=== PATIENT | female | born 1995 | race Caucasian/White ===

== ENCOUNTER → 2021-11-29 | Outpatient (CLI) | payer OTHER, SELFPAY ==
[2021-11-29 18:14] LABS: Potassium 3.6 mmol/L (3.5-5.1)
== END | disposition home or self-care (01) ==
LOC: MTLAB 16:45
PROVIDERS: Referring Provider Dermatology; Visit Provider Dermatology
DX: L70.0 Acne vulgaris (principal); Z79.899 Other long term (current) drug therapy; L57.8 Other skin changes due to chronic exposure to nonionizing radiation
CPT/HCPCS: 36415; 84132

== ENCOUNTER → 2022-10-30 | Outpatient (CLI) | payer OTHER, SELFPAY ==
[2022-10-30 17:22] LABS: Hemoglobin A1c 5.3 % (3.8-5.6)
[2022-10-30 17:51] LABS: Estradiol 96.8 pg/mL; Luteinizing Hormone 3.7 mIU/mL
[2022-10-30 17:56] LABS: Hepatitis B Surface Antibody Non-Reactive; Progesterone Level 11.63 ng/mL (See Comment); Rubella IgG Reactive (Nonreactive); Vitamin D,25 Hydroxy 34.9 ng/mL
[2022-11-01 09:50] LABS: V-Zoster IgG (Immunity) 862 index (Immune >165)
== END | disposition home or self-care (01) ==
LOC: WOBLAB 16:36
PROVIDERS: Visit Provider Student in an Organized Health Care Education/Training Program
DX: L70.0 Acne vulgaris (principal); Z31.69 Encounter for other general counseling and advice on procreation
CPT/HCPCS: 36415; 82306; 82670; 83001; 83002; 83036; 84144; 86706; 86762; 86787

== ENCOUNTER → 2023-01-19 | Outpatient (CLI) | payer OTHER, SELFPAY ==
[2023-01-19 14:20] LABS: Absolute Lymphocyte Count 1.23 X10^3/uL (0.83-4.51); Absolute Neutrophil Count 6.4 X10^3/uL (2.0-7.7); Basophil# 0.06 X10^3/uL; Basophil% 0.7 % (0-1); Eosinophil# 0.03 X10^3/uL; Eosinophils% 0.4 % (0-5); Hematocrit 40.9 % (37-47); Hemoglobin 13.4 g/dL (12.0-15.0); Lymphocyte # 1.23 X10^3/ul (0.83-4.51); Lymphocyte % 14.4 % (19-41); Mean Corp Hgb Conc 32.8 g/dL (32-36); Mean Corpuscular Volume 91.7 fL (81-99); Mean Platelet Vol. 9.2 fl (6.2-12.0); Monocyte# 0.82 X10^3/uL; Monocyte% 9.6 % (0-10); NRBC Flagged by Analyzer 0 % (0-5); Neutrophil # 6.35 X10^3/uL (2.7-7.7); Neutrophil % 74.5 % (47-70); Platelet Count 304 K/mm3 (150-450); RBC Distribution Width CV 11.5 % (11.6-14.6); RBC Distribution Width SD 38.5 fl (35.1-43.9); Red Blood Count 4.46 M/mm3 (4.2-5.4); White Blood Count 8.5 K/mm3 (4.4-11.0)
[2023-01-19 15:23] LABS: HIV - WCH Non-Reactive (Nonreactive); Hepatitis B Surface Antigen Non-Reactive (Nonreactive); Hepatitis C Antibody Non-Reactive (Nonreactive); Rubella IgG Reactive (Nonreactive); Syphilis Antibodies Non-reactive
[2023-01-21 08:08] LABS: V-Zoster IgG (Immunity) 800 index (Immune >165)
== END | disposition home or self-care (01) ==
LOC: WOBLAB 14:07
PROVIDERS: Visit Provider Student in an Organized Health Care Education/Training Program
DX: N91.2 Amenorrhea, unspecified (principal)
CPT/HCPCS: 36415; 85025; 86703; 86762; 86780; 86787; 86803; 87086; 87340

== ENCOUNTER → 2023-01-31 | Outpatient (CLI) | payer OTHER, SELFPAY | END | disposition home or self-care (01) | LOC: LABSPEC 15:36 | PROVIDERS: Referring Provider Dermatology; Visit Provider Dermatology | DX: L08.9 Local infection of the skin and subcutaneous tissue, unspecified (principal) | CPT/HCPCS: 87070; 87077; 87186; 87205 ==

== ENCOUNTER 2023-03-05 09:57 | Day surgery (SDC) | payer OTHER, SELFPAY ==
[2023-03-05] VITALS (7 sets, daily range): BP systolic 98–117; BP diastolic 65–80; PULSE 69–118; RESP 14–18; TEMP 36.2–36.6; O2SAT 97–100; BMI 23.6
[2023-03-05] MEDS: Lactated Ringers 1,000 ML 15 ML IV (11:12)
[2023-03-05 11:22] LABS: Hematocrit 37.5 % (37-47); Hemoglobin 12.9 g/dL (12.0-15.0); Mean Corp Hgb Conc 34.4 g/dL (32-36); Mean Corpuscular Hgb 30.4 pg (27.0-32.0); Mean Corpuscular Volume 88.4 fL (81-99); Platelet Count 222 K/mm3 (150-450); RBC Distribution Width CV 11.9 % (11.6-14.6); RBC Distribution Width SD 38.1 fl (35.1-43.9); Red Blood Count 4.24 M/mm3 (4.2-5.4); White Blood Count 6.9 K/mm3 (4.4-11.0)
--- NOTE | 2023-03-05 11:50 | HP.PCM.OB_ITS ---
History and Physical Date of Admission: 03/05/23 HPI: 27-year-old G1 at 13 weeks presenting for suction dilation curettage for missed . Denies headache vision changes, chest pain or shortness of breath, nausea or vomiting, fevers or cough, diarrhea or constipation. 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: Current Medical history: Denies Surgical history: Appendectomy, wisdom tooth extraction Family history: Noncontributory Social history: Denies tobacco, alcohol, drug use Allergies: NKDA Medications: vitamin Review of system: Negative otherwise stated above Physical exam: Vitals blood pressure 117/77 heart rate 118, respirations 16, temp 97.9 ?F, oxygen saturation 100% on room air General: No acute distress resting comfortably in bed HEENT: Normal cephalic/atraumatic Cardiorespiratory: No increased effort Abdomen: Soft, nontender Extremities: Minimal edema Neurologic: Cranial nerves II through XII grossly intact, no focal deficits Musculoskeletal: Moves all extremities Assessment/plan: 27-year-old G1 at 13 weeks presenting for suction dilation curettage for missed . All risk, benefits, alternatives were discussed the patient. Risk include but are not limited to: Risk of bleeding upon transfusion, infection, injury to surrounding tissue including bowel/bladder/uterine perforation, VTE, ice admission. Patient were consented. Patient elects for Anora testing. Will be sent.
--- NOTE | 2023-03-05 11:52 | OP.PCM_ITS ---
Report of Operation Date of Procedure: 03/05/23 Pre-Operative Diagnosis: Missed Post-Operative Diagnosis: Missed Surgery/Procedure Performed:: Suction dilation and curettage Surgeon: Chioma Bradley pulp machine operator: None Type of Anesthesia: MAC Specimen's removed: Products of conception Description of Procedure: Indication/or/benefits: 27-year-old G1 at 13 weeks presenting for suction dilation curettage for missed . All risk, benefits, alternatives were discussed the patient. Risk include but are not limited to: Risk of bleeding upon transfusion, infection, injury to surrounding tissue including bowel/bladder/uterine perforation, VTE, ice admission. Patient were consented. Patient elects for Anora testing. Will be sent. Procedure: Output: Not measured Complications None
--- NOTE | 2023-03-05 11:52 | PCM.OPRPT ---
Report of Operation Date of Procedure: 03/05/23 Pre-Operative Diagnosis: Missed Post-Operative Diagnosis: Missed Surgery/Procedure Performed:: Suction dilation and curettage Description of Surgical Findings:: Normal-appearing external genitalia. Normal-appearing cervix. Surgeon: Chioma Bradley powerplant operator: None Type of Anesthesia: MAC Specimen's removed: Products of conception Estimated Blood Loss (mL): 25 cc Fluids Replaced: 700 cc IV fluids Description of Procedure: Indication/or/benefits: 27-year-old G1 at 13 weeks presenting for suction dilation curettage for missed . All risk, benefits, alternatives were discussed the patient. Risk include but are not limited to: Risk of bleeding upon transfusion, infection, injury to surrounding tissue including bowel/bladder/uterine perforation, VTE, ice admission. Patient were consented. Patient elects for Anora testing. Will be sent. Procedure: Patient taken to the operating room MAC anesthesia induced. Patient placed in the dorsal lithotomy position and prepped and draped in the usual sterile fashion. Weighted speculum placed in posterior vagina and Castillo retractor used to visualize the cervix. Anterior lip of the cervix grasped with Allis clamp. Cervix gradually dilated. 10 mm suction curette utilized to remove all products of conception in a 360 degree manner. Polyp forceps utilized to remove some tissue as well. Bedside ultrasound completing noting thin endometrial stripe and no blood flow to the endometrial cavity. Patient given 0.2 mg IM Methergine prophylactically. At the end of the procedure all needle, lap, sponge counts were correct. ANORA testing sent. Output: Not measured Complications None Admit VTE Documentation VTE Present on Admission: Yes
--- NOTE | 2023-03-05 11:53 | PCM.DC ---
Discharge Instructions Diet Discharge Diet: No restrictions Activity Discharge Activity: Return to Normal Activity and May Shower May resume sexual activity in: 2 weeks Weight Bearing Status: Weight bearing as tolerated Lifting Restrictions: None Dressing / Incision Call your doctor if you observe: Fever of 101 or Higher, Change in Color, Inability to urinate, Shortness of breath, Dizziness, Swelling in the ankles, Chest pain, Calf discomfort and - (soaking 2 pads an hour for 2 hours) Follow Up Care Please Follow Up With: Chioma Bradley DO When: 1-2 week postoperative visit Test Results: Test results from this visit will be discussed in further detail at your follow-up appointment, if applicable. Discharge Plan Admission Primary Reason for Your Visit: Miscarriage Attending Provider: Chioma Bradley Primary Care Provider: Boston Card Additional Instructions / Restrictions: Take ibuprofen and Tylenol as needed for cramping. Discharge Orders/Prescriptions Prescriptions: No Action PNV cmb#95-ferrous fumarate-FA [] 28 mg iron- 800 mcg tablet 1 tab PO DAILY magnesium 250 mg tablet 250 mg PO DAILY Referrals / Follow Up: Care Physician,No Primary [Non-Staff] - Disposition Disposition (needs filled in before D/C Order can be placed): Home, Self Care
--- NOTE | 2023-03-05 12:00 | POC_PTH ---
PATIENT: ARETHA MARTINEZ LOC: [facility] [place] U#:[id number] AGE/SX: 27/ ROOM: RE03/05/[address]: Dr. Chioma Bradley DO : 1995 BED: DIS: 03/05/2023 SPEC #: [id number] RECD: 03/05/23 12:50 STATUS: RITCHIE REAlexandra #: [id number] ML: 03/05/23 12:[address]: Chioma Bradley DEPT: SURGICAL PATHOLOGY RECD BY: Dixie Stauffer ENTERED: 03/05/23 13:34 SP TYPE: PROD CONC OTHR DR: Dr. Boston Card MD Tissues: Product of conception, NOS Procedures: Surgery Specimen Level IV HEADER OPERATION: Suction dilation and curettage, Anora testing PRE-OP DIAGNOSIS: Missed TISSUE SUBMITTED: Products of conception for Anora testing MICROSCOPIC DIAGNOSIS Products of conception, dilation and curettage: Immature placental tissue, tissue, decidua and gestational endometrium (products of conception), clinically missed . JOE:forrest 03/06/2023 COMMENT The results of Anora study will be reported separately. MICROSCOPIC DESCRIPTION Slides are reviewed. GROSS DESCRIPTION Received without fixative is one container labeled with the patient's name and designated products of conception. The specimen consists of multiple pieces of pink, hemorrhagic soft tissue mixed with placental tissue that in aggregate measure 10.0 x 9.0 x 2.5 cm. A few parts are also noted. Beaming Inspector tissue is submitted in three cassettes. A portion of tissue is submitted for Anora studies. / JOE:forrest 03/05/2023 TC:5 CPT: 95277
[2023-03-05] MEDS: Methylergonovine 0.2 MG/ML Ampul IM (12:43)
[2023-03-05 12:50] LABS: Pathology Specimen OB SEE PATHOLOGY REPORT
[2023-03-05] MEDS: Acetaminophen 500 MG Tablet 1000 MG PO (13:25)
== END 2023-03-05 14:47 | disposition home or self-care (01) ==
LOC: SDC 09:59 → AC 10:01
PROVIDERS: PCP Family Medicine; Referring Provider Student in an Organized Health Care Education/Training Program; Visit Provider Student in an Organized Health Care Education/Training Program
PROC: (CPT 59820; principal; 2023-03-05 11:45)
DX: O02.1 Missed abortion (principal); Z3A.13 13 weeks gestation of pregnancy
CPT/HCPCS: 59820; 01965; 85027; 86850; 86900; 86901; 88305; J2405

== ENCOUNTER 2023-07-09 13:45 | Emergency (ER) | payer OTHER, SELFPAY ==
[2023-07-09 13:46] VITALS: BP 115/80; PULSE 131; RESP 16; TEMP 35.9; O2SAT 100; BMI 24.3
--- NOTE | 2023-07-09 14:10 | US_ITS ---
STUDY: FIRST TRIMESTER OBSTETRICAL ULTRASOUND REASON FOR EXAM: Female, 28 years old bleeding- off and on LLQ pain LMP: June 03, 2023 TECHNIQUE: Transvaginal TECHNICAL QUALITY: Adequate. PRIOR ULTRASOUND: None. FINDINGS: There is visualization of a single gestational sac in a normal intrauterine position. The mean sac diameter (MSD) measures 1.4 cm, indicating an estimated gestational age (EGA) of 6 weeks, 2 days. The gestational sac shape is within normal limits. The sac is in the left horn of the uterus. There is no demonstrated yolk sac. The placenta is non-visualized. There is no demonstrated embryo ( pole). The estimated gestation age (EGA) by LMP is 5 weeks, 1 days. The estimated date of delivery (ONDINA) by LMP is March 09, 2024. The estimated gestation age (EGA) by US is 6 weeks, 3 days. The estimated date of delivery (ONDINA) by US is February 29, 2024. The uterus measures 8.9 cm x 5.9 cm x 4.6 cm findings suggestive of a septated uterus. Small anechoic area measuring 1.1 sign by 1.1 cm x 0.3 cm is seen adjacent to the sac suggestive of a small subchorionic bleed.. There is no demonstrated uterine fibroid. The cervix is closed. The right ovary measures 2.4 cm x 1.6 cm x 0.8. There is no right ovarian cyst. There is no visualized right adnexal mass or complex lesion. The left ovary measures 3.7 cm x 2.3 cm x 1.9 cm. There is a 1.8 cm x 1.3 cm x 1.9 cm hypoechoic solid structure adjacent to the left ovary. There is no visualized left adnexal mass or complex lesion. There is no fluid in the cul de sac. US/Transvaginal w/Preg US IMPRESSION: Intrauterine gestational sac with a mean gestational age of 6 weeks and 2 days. Small subchorionic. Electronically Signed: Adan Domínguez MD at 15:44 EST ,
--- NOTE | 2023-07-09 14:10 | ED.VIS.FEGU ---
HPI HPI - Female History of Present Illness Chief Complaint: Informant: patient Narrative Narrative: Since with some bleeding while . This is a overall healthy G2, P0 female estimated to be about 5 weeks . She had a miscarriage at 13 weeks with her last and that occurred February of this year. She also had some nausea vomiting with that . She states she is starting to get mild nausea with this but it is not a big issue and she has not had vomiting. This morning she wiped and had a small amount of brownish or bloody discharge. It has not recurred. She called her OB who referred her in here. But patient already had quantitative beta-hCG drawn this morning. Patient's not in any pain. She states occasionally she gets a pinch feeling in her left lower quadrant but it is just intermittent and generally she feels fine. She has no urinary symptoms. No fevers or chills. Only abdominal surgery is D&C this February and appendectomy when she was 9. Of note, there is question if the patient may have a slightly bicornate uterus. But this is evidently not certain based on the prior ultrasounds. PFSH PFSH Medical History Non-smoker Home Medications magnesium 250 mg tablet 250 mg PO DAILY 03/02/23 [History Last Taken Unknown] vit no.95-ferrous fumarate 28 mg-folic acid 800 mcg tablet () 1 tab PO DAILY 03/02/23 [History Last Taken Unknown] Allergy/AdvReac Type Severity Reaction Status Date / Time pollen extracts Allergy Unknown Verified 07/09/23 13:47 Surgical History History of appendectomy (~2003) History of wisdom tooth extraction (~12/2021) Social History Smoking Status: Never smoker alcohol intake: current alcohol intake frequency: a few times a week ROS ROS ED Constitutional Constitutional ED: Denies chills or fever(s) ENT ENT ED: Denies rhinorrhea or sore throat Cardiovascular Cardiovascular: Denies chest pain or palpitations Respiratory/Chest Respiratory/Chest: Denies cough or dyspnea Gastrointestinal Gastrointestinal: Reports nausea; Denies abdominal pain, diarrhea or vomiting Genitourinary Genitourinary ED: Reports other Details: See history of present illness ; Denies dysuria or hematuria Endocrine Endocrinology: Denies polydipsia or polyuria Hematologic/Lymphatic Hematologic/Lymphatic: Denies easy bleeding, easy bruising or lymphadenopathy Allergic/Immunologic Allergic/Immunologic ED: Denies urticaria EXAM Physical Exam Narrative Exam Narrative: Neuro: Patient's laying on bed comfortable no acute distress. Nontoxic. Does not look pale. HEENT shows no trauma. Mucous membranes are moist. Heart is regular. Lungs are clear and saturations are normal. Abdomen is soft nondistended. There is no tenderness including none at the low left and right quadrant/pubic area and no suprapubic tenderness. No CVA tenderness. Skin shows no rash petechiae purpura or pallor. No diaphoresis. Const Vital Signs: 07/09/23 13:46 07/09/23 15:49 Temperature 96.6 F L Temperature Source Temporal Pulse Rate 131 H 64 Respiratory Rate 16 16 Blood Pressure 115/80 134/73 H Blood Pressure Mean 91 93 Pulse Ox 100 99 Oxygen Delivery Method Room Air Room Air MDM MDM MDM Narrative Medical decision making narrative: And already had a quantitative beta-hCG G drawn at over 21,000 earlier today. Patient has blood type of O+ when I checked on prior labs from 05 March of this year. Because of the above information I do not think we need to repeat blood work. Patient had a small amount of red on a tissue a single time and I do not think a CBC would be necessary now. We will do ultrasound. Ultrasound shows intrauterine gestational sac with size consistent with 6 weeks 2 days. There is small subchorionic bleed. The do note hypoechoic structure next to the left ovary. Urinalysis is normal. Patient will follow-up with [facility]. If she has further bleeding pain and vomiting or other concerns she should return. Lab Data Attestation: I reviewed the patient's lab results. Labs: Laboratory Results - last 24 hr 07/09/23 15:46 Urine Color Yellow Urine Clarity Clear Urine pH 7.0 Ur Specific [place] 1.005 Urine Protein Negative Urine Glucose (UA) Normal Urine Ketones Negative Urine Occult Blood Negative Urine Nitrite Negative Urine Bilirubin Negative Urine Urobilinogen Normal Ur Leukocyte Esterase Negative Urine RBC 0 SEEN Urine WBC 0 SEEN Ur Squamous Epith Cells 0 SEEN Urine Bacteria 0 SEEN Urine Mucus 0 SEEN Radiography Diagnostic Testing: Clinical Impression(s) from Imaging Studies Obstetrics Ultrasound 07/09/23 14:10 IMPRESSION: Intrauterine gestational sac with a mean gestational age of 6 weeks and 2 days. Small subchorionic. Electronically Signed: Adan Domínguez MD at 15:44 EST , Discharge Plan Triage Chief Complaint: ED Provider: Sherwin Mendoza Dx/Rx/DC Orders Clinical Impression: First trimester bleeding, Subchorionic bleed Instructions: Bleeding During Early Prescriptions: No Action PNV cmb#95-ferrous fumarate-FA [] 28 mg iron- 800 mcg tablet 1 tab PO DAILY magnesium 250 mg tablet 250 mg PO DAILY Primary Care Provider: Boston Card Referrals: Kari Vanegas MD [Med Staff - Active Staff] - As soon as possible Boston Card MD [Primary Care Provider] - Disposition Disposition: Home, Self Care
[2023-07-09 15:49] VITALS: BP 134/73; PULSE 64; RESP 16; O2SAT 99
[2023-07-09 15:50] LABS: Bacteria 0 SEEN /hpf (None Seen); Mucous, Urine 0 SEEN /hpf (<or=2+); Red Blood Cells-Urine 0 SEEN /hpf (0-5); Squamous Epithelial Cells - UA 0 SEEN /hpf (5-10); White Blood Cells 0 SEEN /hpf (0-5)
[2023-07-09 16:11] LABS: Color, Urine Yellow (Yellow); Glucose, Dipstick Normal (Normal); Ketone-Dipstick Negative (Negative); Leukocyte Esterase-Dipstick Negative /ul (Negative); Nitrite-Dipstick Negative (Negative); Occult Blood-Urine Negative /ul (Negative); Protein-Dipstick Negative (Negative); Specific Gravity, Urine 1.005 (1.002-1.030); Urine Bilirubin Dipstick Negative (Negative); Urine Clarity Clear (Clear); Urine Urobilinogen Normal (Normal)
== END 2023-07-09 16:45 | disposition home or self-care (01) ==
PROVIDERS: Emergency Provider Emergency Medicine; PCP Family Medicine; Referring Provider Emergency Medicine; Visit Provider Emergency Medicine
DX: O20.8 Other hemorrhage in early pregnancy (principal); Z90.49 Acquired absence of other specified parts of digestive tract; Z3A.01 Less than 8 weeks gestation of pregnancy
CPT/HCPCS: 76817; 81001; 99282

== ENCOUNTER → 2023-07-09 | Outpatient (CLI) | payer OTHER, SELFPAY | END | disposition home or self-care (01) | LOC: LAB 09:05 | PROVIDERS: PCP Family Medicine; Referring Provider Obstetrics & Gynecology; Visit Provider Obstetrics & Gynecology | DX: N92.0 Excessive and frequent menstruation with regular cycle (principal) | CPT/HCPCS: 36415; 84702 ==

== ENCOUNTER → 2023-07-11 | Outpatient (CLI) | payer OTHER, SELFPAY | END | disposition home or self-care (01) | LOC: LAB 15:49 | PROVIDERS: PCP Family Medicine; Referring Provider Obstetrics & Gynecology; Visit Provider Obstetrics & Gynecology | DX: O20.9 Hemorrhage in early pregnancy, unspecified (principal); N92.0 Excessive and frequent menstruation with regular cycle; Z3A.00 Weeks of gestation of pregnancy not specified | CPT/HCPCS: 36415; 84702 ==

== ENCOUNTER → 2023-07-17 | Outpatient (CLI) | payer OTHER, SELFPAY ==
--- NOTE | 2023-07-17 16:20 | US_ITS ---
INDICATION: viability EXAMINATION: Ultrasound US OB Transvaginal TECHNIQUE: Transvaginal (for optimal evaluation of the adnexa) pelvic ultrasound was performed. Grayscale, spectral waveform, and color flow Doppler evaluation of the adnexa. COMPARISON: 07/09/2023 LMP: [06/03/2023 Beta-hCG: Unknown FINDINGS: UTERUS: 11.9 x 8.7 x 4.8 cm, septated appearance with complex fluid now present in the right sided endometrial cavity. Gestational sac in the left-sided endometrial cavity. RIGHT OVARY: 3.3 x 1.7 x 2.3 cm. Normal. LEFT OVARY: Not visualized due to bowel gas. FREE FLUID: None. INTRAUTERINE GESTATIONAL SAC(s) (size/shape): Single. Mean sac diameter 2.7 cm corresponding 7 weeks 5 days.. YOLK SAC: Identified POLE: Identified CRL 0.84 cm. ESTIMATED GESTATION AGE: 6 weeks 6 days. HEART MOTION: 133 bpm. PLACENTA: Not visualized due to age. SUBCHORIONIC HEMORRHAGE: None. AMNIOTIC FLUID: Qualitatively normal. US/Transvaginal w/Preg US IMPRESSION: Septated uterus with single live intrauterine in the left-sided endometrial cavity. Estimated gestational age is 6 weeks 6 days with ONDINA 03/05/2024. Electronically Signed: Carl Hdez MD at 22:18 EST ,
== END | disposition home or self-care (01) ==
PROVIDERS: PCP Family Medicine; Visit Provider Obstetrics & Gynecology
DX: O46.8X9 Other antepartum hemorrhage, unspecified trimester (principal); Z3A.00 Weeks of gestation of pregnancy not specified
CPT/HCPCS: 76817

== ENCOUNTER → 2023-08-02 | Outpatient (CLI) | payer OTHER, SELFPAY ==
[2023-08-02 15:52] LABS: Absolute Lymphocyte Count 1.31 X10^3/uL (0.83-4.51); Absolute Neutrophil Count 8.1 X10^3/uL (2.0-7.7); Basophil# 0.03 X10^3/uL; Basophil% 0.3 % (0-1); Eosinophil# 0.06 X10^3/uL; Eosinophils% 0.6 % (0-5); Hematocrit 35.6 % (37-47); Hemoglobin 11.9 g/dL (12.0-15.0); Lymphocyte # 1.31 X10^3/ul (0.83-4.51); Lymphocyte % 12.4 % (19-41); Mean Corp Hgb Conc 33.4 g/dL (32-36); Mean Corpuscular Hgb 30.1 pg (27.0-32.0); Mean Corpuscular Volume 90.1 fL (81-99); Mean Platelet Vol. 9.1 fl (6.2-12.0); Monocyte# 1.02 X10^3/uL; Monocyte% 9.6 % (0-10); NRBC Flagged by Analyzer 0 % (0-5); Neutrophil # 8.14 X10^3/uL (2.7-7.7); Neutrophil % 76.7 % (47-70); Platelet Count 268 K/mm3 (150-450); RBC Distribution Width SD 39.6 fl (35.1-43.9); Red Blood Count 3.95 M/mm3 (4.2-5.4); White Blood Count 10.6 K/mm3 (4.4-11.0)
[2023-08-02 16:44] LABS: HIV - WCH Non-Reactive (Nonreactive); Hepatitis B Surface Antigen Non-Reactive (Nonreactive); Hepatitis C Antibody Non-Reactive (Nonreactive); Rubella IgG Reactive (Nonreactive); Syphilis Antibodies Non-reactive
[2023-08-06 22:07] LABS: Chlamydia By Nucleic Acid AMP Negative (Negative); Gonococcus By Nucleic Acid AMP Negative (Negative)
[2023-08-08 20:28] LABS: HPV Reflexed? NOT INDICATED
== END | disposition home or self-care (01) ==
LOC: PAVLAB 15:38
PROVIDERS: PCP Family Medicine; Referring Provider Advanced Practice Midwife; Visit Provider Advanced Practice Midwife
DX: Z34.90 Encounter for supervision of normal pregnancy, unspecified, unspecified trimester (principal)
CPT/HCPCS: 36415; 85025; 86703; 86762; 86780; 86803; 86850; 86900; 86901; 87086; 87340; 87491; 87591; 88175; G0145

== ENCOUNTER 2023-08-18 22:08 | Emergency (ER) | payer OTHER, SELFPAY ==
[2023-08-18 22:09] VITALS: BP 120/83; PULSE 115; RESP 18; TEMP 36; O2SAT 99; BMI 25.0
--- NOTE | 2023-08-18 22:28 | EX.ED.DYSGE1 ---
HPI History of Present Illness Chief Complaint: Nausea/Vomiting Informant: patient Narrative Narrative: Patient presents secondary to nausea and vomiting with blood in her emesis. She is currently 11-1/2 weeks . She states that last Sunday she had vomiting and again tonight. Tonight she noted some blood in the vomitus. She has had pelvic cramping for the past 4 weeks that is not any worse than different. She has had some intermittent spotting throughout. She is currently taking Unisom and vitamin B6 at bedtime to help with nausea. Patient is G2, P0, Ab1 Patient's blood type is O+. [facility] Medical History Abnormal Pap smear of cervix Acute bacterial conjunctivitis Influenza A Non-smoker Raynauds disease Seasonal allergies Home Medications vit no.95-ferrous fumarate 28 mg-folic acid 800 mcg tablet () 1 tab PO DAILY 03/02/23 [History Last Taken Unknown] Allergy/AdvReac Type Severity Reaction Status Date / Time pollen extracts Allergy Unknown Verified 08/18/23 22:09 Family History Mother Hypertension Hypothyroidism Surgical History H/O dilation and curettage History of appendectomy (~2003) History of wisdom tooth extraction (~12/2021) Social History adopted: No household members: spouse current occupational status: employed 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 current occupational exposures/hazards: No pets and animals: Yes pets and animals: dog(s) history of recent travel: Yes ([place]) out of state: Yes out of country: No sexually active: Yes Smoking Status: Never smoker alcohol intake: current alcohol intake frequency: a few times a week details: not while substance use type: does not use well-balanced diet: daily or most days caffeine: No eating out: 1-3 times/week during the past year weight has: remained stable juan daniel/holiness: Sikh seatbelt use: always do you feel safe at home: Yes additional social history: [employer] ROS ROS ED Constitutional Constitutional ED: Denies chills or fever(s) Eyes Eyes: Denies change in vision or discharge from eye(s) ENT ENT ED: Denies discharge from eye(s), rhinorrhea or sore throat Cardiovascular Cardiovascular: Denies chest pain or palpitations Respiratory/Chest Respiratory/Chest: Denies cough or dyspnea Gastrointestinal Gastrointestinal: Reports nausea and vomiting; Denies abdominal pain or diarrhea Genitourinary Genitourinary ED: Denies dysuria Musculoskeletal Musculoskeletal: Denies back pain or extremity pain Integumentary Denies Abrasions or rash Neurologic Neurologic: Denies headache(s) or weakness Psychiatric Psychiatric: Denies anxiety or depression Allergic/Immunologic Allergic/Immunologic ED: Denies lip swelling or urticaria EXAM Physical Exam Const Vital Signs: 08/18/23 22:09 Temperature 96.8 F L Temperature Source Temporal Pulse Rate 115 H Respiratory Rate 18 Blood Pressure 120/83 H Blood Pressure Mean 95 Pulse Ox 99 Oxygen Delivery Method Room Air Positive well nourished and well developed General Appearance ED: well developed HEENT Reports moist mucous membranes Eyes EOMs intact bilaterally Chest Wall inspection of chest normal and palpation of chest normal Resp normal respiratory effort and clear to auscultation bilaterally Cardio regular rate and regular rhythm GI non-tender Auscultation: normoactive bowel sounds Palpation: soft Extremity normal to inspection Neuro oriented x3 and no sensory deficits noted Motor Exam: strength 5/5 throughout Psych mental status grossly normal Skin no rashes or lesions noted MDM MDM MDM Narrative Medical decision making narrative: IV line initiated. Patient given IV fluids and Zofran. Labwork obtained to evaluate for leukocytosis, anemia, and electrolyte derangement. Urinalysis obtained to evaluate for infection/hematuria. History & Record Review Discussion w/independent historian: Patient Lab Data Attestation: I reviewed the patient's lab results. Labs: Laboratory Results - last 24 hr 08/18/23 08/18/23 22:35 22:41 WBC 7.0 RBC 4.02 L Hgb 12.0 Hct 36.5 L MCV 90.8 MCH 29.9 MCHC 32.9 RDW Std Deviation 40.0 RDW Coeff of Flavia 12.0 Plt Count 234 MPV 8.9 Immature Gran % (Auto) 0.300 Neut % (Auto) 63.2 Lymph % (Auto) 24.7 [place] % (Auto) 9.8 Eos % (Auto) 1.4 Baso % (Auto) 0.6 Absolute Neuts (auto) 4.4 Absolute Lymphs (auto) 1.73 Nucleated RBC % 0 Sodium 136 Potassium 3.6 Chloride 105 Carbon Dioxide 27.0 Anion Gap 4 L BUN 8 Creatinine 0.53 L Estim Creat Clear Calc 153.68 Est GFR (MDRD) Af Amer 175 Est GFR (MDRD) Non-Af 144 BUN/Creatinine Ratio 15.0 Glucose 104 Calcium 9.4 Total Bilirubin 0.40 Direct Bilirubin 0.12 AST 10 L ALT 9 L Alkaline Phosphatase 46 Total Protein 7.0 Albumin 3.3 Globulin 3.7 Lipase 41 Urine Color Yellow Urine Clarity Clear Urine pH 6.5 Ur Specific [place] 1.020 Urine Protein 15 H Urine Glucose (UA) Normal Urine Ketones Negative Urine Occult Blood 10 H Urine Nitrite Negative Urine Bilirubin Negative Urine Urobilinogen Normal Ur Leukocyte Esterase 25 H Urine RBC 0-5 SEEN Urine WBC 0-5 SEEN Ur Squamous Epith Cells 0-5 SEEN Urine Bacteria RARE Urine Mucus RARE Treatment and Re-Evaluation :: CBC reveals normal white count 7.0 with a hemoglobin of 12.0. Chemistry studies unremarkable. LFTs and lipase normal. Urinalysis reveals 15 protein with 0-5 white cells and 0-5 epithelial cells. Rare bacteria noted. No nitrites. On repeat evaluation patient feels improved. Her nausea has resolved. I do feel she likely had some irritation of the small blood vessels in her throat from heaving that caused her bleeding. I do not think she needs further GI workup at this time. I did offer to write a prescription for nausea medication however she feels that she is doing okay with her current regimen. Return instructions will be given. Discharge Plan Triage Chief Complaint: Nausea/Vomiting ED Provider: Nicolle Martinez Dx/Rx/DC Orders Clinical Impression: First trimester , Hematemesis, Vomiting Instructions: 1st Trimester, ED Vomiting (Adult) Prescriptions: No Action PNV cmb#95-ferrous fumarate-FA [] 28 mg iron- 800 mcg tablet 1 tab PO DAILY Primary Care Provider: Boston Card Referrals: Nicolle Massey DO [Med Staff - Active Staff] - Keep Christiano appointment Boston Card MD [Primary Care Provider] - Disposition Disposition: Home, Self Care
--- OUTSIDE RECORDS SUMMARY | 2023-08-18 22:38 | XMS RPT_ITS | CCD ---
Author Name Unknown Address [address] [facility] [address] [place] [address] Organization [facility] Care Team Providers Care Customer Experience Specialist Name Role Phone Juan, Ann Unavailable Unavailable Juan, Ann Unavailable Unavailable Luisa Grover LPN Unavailable Unavailab le BERTRAND DOROXANN Attending Unavailable BERTRAND DO, ROXANN [place] Consulting Unavailable BERTRAND DOROXANN Admitting Unavailable NONE, NONE Primary Care Unavailable NONE, NONE Consulting Unavailable Unavailable Primary Care Provider Unavailchauncey Lopez MD, Ann Rogers Primary Care Provider ANN LOPEZ Referring Unavailable DESTINEY MCCARTHY Attending Unavailable ANN LOPEZ Referring Unavailable ANN LOPEZ Attending Unavailable ANN LOPEZ Referring Unavailable ANN LOPEZ Primary Care Unavailable ANN LOPEZ Attending Unavailable ANN LOPEZ Primary Care Unavailable ANN LOPEZ Primary Care Unavailable ANN LOPEZ Referring Unavailable ANN LOPEZ Primary Care Unavailable ANN LOPEZ Attending Unavailable ANN LOPEZ Primary Care Unavailable Allergies Allergy Classification Reported Allergen(s) Allergy Type Date of Onset Reaction(s) Facility (1 source) No Known Medication Allergies; Translations: [No Known Medication Allergies] Propensity to adverse reactions to drug (disorder) [facility] Repository (1 source) Pollen; Translations: [POLLEN] allergy to substance [facility] Work Phone: (4 sources) Pollen; Translations: [POLLEN EXTRACTS] Drug Allergy 7 Other: See Comments [facility] Work Phone: Medications Current Medications Medication Drug Class(es) Dates Sig (Normalized) Sig (Original) cefuroxime 500 mg oral tablet (1 source) Cephalosporin Antibacterial Start: 02-01-2023 End: 02-15-2023 take 1 tablet by mouth twice daily cefUROXime (CEFTIN) 500 mg tablet Indications: Erythema migrans Take 1 tablet by mouth twice daily for 14 days. 28 tablet 0 02/01/2023 02/15/2023 Active Completed/Discontinued Medications Medication Drug Class(es) Dates Sig (Normalized) Sig (Original) azithromycin 250 mg oral tablet (2 sources) Macrolide Antimicrobial Start: 04-30-2017 AZITHROMYCIN 250 MG TABS 2 tablets today, then 1 tablet daily on days 2 through 5 AZITHROMYCIN [id number] Clint HIGGINS benzonatate 200 mg oral capsule (2 sources) Non-narcotic Antitussive Start: 04-30-2017 BENZONATATE 200 MG CAPS 1 capsule every 8 hours as needed for cough BENZONATATE [id number] Clint HIGGINS benzoyl peroxide 0.05 mg/mg / clindamycin phosphate 0.012 mg/mg topical gel (3 sources) Lincosamide Antibacterial Start: 04-18-2022 Clindamycin-Benzoy l Peroxide 1.2 %(1 % base) -5 % gel APPLY ONCE DAILY TO ALL AREAS OF ACNE AT BEDTIME - WILL BLEACH CLOTHES UNTIL DRY. 0 04/18/2022 Active Problems Active Problems Problem Classification Problem Date Documented Date Episodic/Chronic Diseases of mouth; excluding dental (2 sources) Geographic tongue; Translations: [Geographic tongue] Onset: 02-02-2023 Episodic Immunizations and screening for infectious disease (1 source) Patient encounter status; Translations: [Encounter for screening for infections with a predominantly sexual mode of transmission] Episodic Other connective tissue disease (1 source) Pain in finger of left hand; Translations: [Pain in left finger(s)] Episodic Other infections; including parasitic (1 source) Lyme disease, unspecified; Translations: [Lyme disease] Onset: 02-19-2023 Episodic Other lower respiratory disease (2 sources) Cough; Translations: [Acute cough] Onset: 04-30-2017 04-30-2017 Episodic Other skin disorders (1 source) Trachyonychia; Translations: [Nail dystrophy] 03-29-2023 Episodic Other skin disorders (1 source) Loss of hair; Translations: [Nonscarring hair loss, unspecified] 03-29-2023 Episodic Other skin disorders (1 source) Nail dystrophy; Translations: [Brittle nails] Onset: 04-03-2023 Episodic Other skin disorders (1 source) Nonscarring hair loss, unspecified; Translations: [Hair loss] Onset: 04-03-2023 Episodic Residual codes; unclassified (1 source) FH: Thyroid disorder; Translations: [Family history of other endocrine, nutritional and metabolic diseases] 03-29-2023 Episodic Residual codes; unclassified (1 source) Family history of other endocrine, nutritional and metabolic diseases; Translations: [Family history of thyroid disease] Onset: 04-03-2023 Episodic Past or Other Problems Problem Classification Problem Date Documented Da te Episodic/Chronic Chronic obstructive pulmonary disease and bronchiectasis (1 source) Bronchitis; Translations: [Bronchitis, not specified as acute or chronic] Onset: 04-30-2017 04-30-2017 Episodic Other connective tissue disease (1 source) Pain in left finger(s); Translations: [Pain of finger of left hand] Onset: 07-25-2022 Episodic Other screening for suspected conditions (not mental disorders or infectious disease) (5 sources) Cancer cervix screening status; Translations: [Encounter for screening for malignant neoplasm of cervix] Onset: 08-01-2022 Episodic Results Test Name Value Interpretation Reference Range Facil ity Vital Signs Date Time Vital Sign Value Performing Clinician Facility 02-01-2023 18:39-0400 Body temperature 98.29 [degF] Ann Lopez MD Work Phone: [facility] 02-01-2023 18:39-0400 Body weight 67.59 kg Ann Lopez MD Work Phone: [facility] 02-01-2023 18:39-0400 Diastolic blood pressure 70 mm[Hg] Ann Lopez MD Work Phone: [facility] 02-01-2023 18:39-0400 Heart rate 91 /min Ann Lopez MD Work Phone: [facility] 02-01-2023 18:39-0400 SaO2% (BldA) [Mass fraction] 98 % Ann Lopez MD Work Phone: [facility] 02-01-2023 18:39-0400 Systolic blood pressure 104 mm[Hg] Ann Lopez MD Work Phone: [facility] 08-01-2022 13:27-0500 Body height 170.2 cm Destiney Mccarthy APRN.DRAW FIRE OPERATOR Work Phone: [facility] 08-01-2022 13:27-0500 Body weight 66.68 kg Destiney Mccarthy APRN.DRAW FIRE OPERATOR Work Phone: [facility] 08-01-2022 13:27-0500 Diastolic blood pressure 62 mm[Hg] Destiney Mccarthy APRN.DRAW FIRE OPERATOR Work Phone: [facility] 08-01-2022 13:27-0500 Systolic blood pressure 100 mm[Hg] Destiney Mccarthy APRN.DRAW FIRE OPERATOR Work Phone: [facility] 07-25-2022 13:02-0500 Body height 172 cm Ann Lopez MD Work Phone: [facility] 07-25-2022 13:02-0500 Body weight 66.22 kg Ann Lopez MD Work Phone: [facility] 07-25-2022 13:02-0500 Diastolic blood pressure 70 mm[Hg] Ann Lopez MD Work Phone: [facility] 07-25-2022 13:02-0500 Heart rate 99 /min Ann Lopez MD Work Phone: [facility] 07-25-2022 13:02-0500 Respiratory rate 16 /min Ann Lopez MD Work Phone: [facility] 07-25-2022 13:02-0500 SaO2% (BldA) [Mass fraction] 99 % Ann Lopez MD Work Phone: [facility] 07-25-2022 13:02-0500 Systolic blood pressure 110 mm[Hg] Ann Lopez MD Work Phone: [facility] 04-30-2017 16:33-0400 BMI (Body Mass Index) 23.63 kg/m2 Luisa Grover LPN [facility] Work Phone: 04-30-2017 16:33-0400 Body Temperature 98.8 [degF] Luisa Grover LPN [facility] Work Phone: 04-30-2017 16:33-0400 BP Diastolic 74 mm[Hg] Luisa Grover LPN [facility] Work Phone: 04-30-2017 16:33-0400 BP Systolic 104 mm[Hg] Luisa Grover LPN [facility] Work Phone: 04-30-2017 16:33-0400 Height 172.72 cm Luisa Grover LPN [facility] Work Phone: 04-30-2017 16:33-0400 Pulse (Heart Rate) 83 /min Luisa Grover LPN [facility] Work Phone: 04-30-2017 16:33-0400 Respiratory Rate 14 /min Luisa Grover LPN [facility] Work Phone: 04-30-2017 16:33-0400 Weight 70.49 kg Luisa Grover LPN [facility] Work Phone: Encounters Encounter Date Encounter Type Care Provider Facility Start: 04-03-2023 End: 04-04-2023 ambulatory ANN LOPEZ Facility:[facility] Start: 03-29-2023 End: 03-29-2023 ambulatory Ann Lopez MD Work Phone: [facility] Procedures Date Procedure Procedure Detail Performing Clinician Start: 08-01-2022 Cytp c/v auto thin l yr prepj scr mnl rescr phys Destiney Mccarthy APRN.DRAW FIRE OPERATOR Work Phone: Start: 07-25-2022 COVID WITH FLUA+B, ROUTINE Ann Lopez MD Work Phone: Plan of Treatment Date Care Activity Detail Author Start: 08-01-2025 PAP TESTING PAP TESTING [facility] Start: 03-30-2023 Influenza vaccination INFLUENZA (#1) [facility] Start: 03-29-2023 End: 05-29-2023 CBC W Auto Differential panel - Blood CBC + DIFF Lab Routine Brittle nails Hair loss Family history of thyroid disease Expected: 03/29/2023, Expires: 05/29/2023 [facility] Work Phone: Payers Date Payer Category Payer Unknown [id number] 2017 Unknown 1995 Unknown [id number] Unknown [id number] Social History Date Type Detail Facility Start: 07-25-2022 Tobacco smoking status NHIS Never sm oked tobacco [facility] Start: 07-25-2022 Tobacco use and exposure Smoke less tobacco non-user [facility] Start: 07-18-2022 History SDOH Alcohol Frequency 2 [facility] Start: 07-18-2022 History SDOH Social Connections Phone 5 [facility] Start: 07-18-2022 History SDOH Social Connections Protestant 3 [facility] Start: 07-18-2022 History SDOH Social Connections Membership 1 [facility] Start: 1995 Sex Assigned At Not on file [facility] Start: 08-01-2022 End: 02-01-2023 Alcohol intake Current drinker of alcohol (finding) [facility] Start: 08-01-2022 Alcohol Comment occasional [facility] Start: 07-18-2022 End: 02-01-2023 History of Social function [place] [facility] Start: 07-18-2022 End: 02-01-2023 Social connection and isolation panel [facility] Do you belong to any clubs or organizations such as restorationism groups, unions, fraternal or athletic groups, or school groups? Yes [facility] Are you now , , , , never or living with a partner? [facility] How often to you hav e a drink containing alcohol? Monthly or less [facility] How many standard dr inks containing alcohol do you have on a typical day? 3 or 4 [facility] How often do you hav e 6 or more drinks on 1 occasion? Less than monthly [facility] How hard is it for y ou to pay for the very basics like food, housing, medical care, and heating Not hard at all [facility] Do you feel stress - tense, restless, nervous, or anxious, or unable to sleep at night because your mind is troubled all the time - these days [OSQ] Not at all [facility] (I/We) worried wheth er (my/our) food would run out before (I/we) got money to buy more. Never true [facility] In the past 12 month s, was there a time when you were not able to pay the mortgage or rent on time? No [facility] Clinical Notes 07-25-2022 to 03-29-2023 Ann Lopez MD - 03/29/2023 10:06 AM Roseline Lopez MD - 02/01/2023 6:43 PM EDTResult Encounter Note - Nicolle Tomas - 08/03/2022 10:49 AM ESTPatient Instructions Note Date & Type Note Facility 03-29-2023 Note HNO ID: [id number] Author: Ann Lopez MD Service: ? Author Type: Physician Type: Progress Notes Filed: 03/29/2023 10:14 AM Note Text: Patient presents with: Acute Visit HPI:This Team Access Model visit is a virtual encounter. It required patient-provider interaction for the medical decision making as documented below. Patient has elected to have a visit through distance medicine I have communicated my name and active licensure. The patient's identity and physical location were verified at the time of this visit. Either the patient or their legal payable representative has been informed of the risks and benefits of -- and alternatives to -- treatment through a remote evaluation and consents to proceed with the evaluation remotely. Wants her thyroid checked. Mother has thyroid disease Is cold frequently. Has thin brittle hair. Has brittle hair. Did gain some weight No gi issues. She is fatigued. No palpitations or chest. Since here had a miscarriage. Genetic testing on fetus was ok. MEDICATIONS: Current Outpatient Medications Medication Sig Clindamycin-Benzoyl Peroxide 1.2 %(1 % base) -5 % gel APPLY ONCE DAILY TO ALL AREAS OF ACNE AT BEDTIME - WILL BLEACH CLOTHES UNTIL DRY. No current facility-administered medications for this visit. ALLERGIES: ALLERGIES Allergen Reactions Pollen Extracts Other: See Comments PAST MEDICAL HISTORY Diagnosis Date Cervical high risk HPV (human papillomavirus) test positive 2018 PAST SURGICAL HISTORY Procedure Laterality Date APPENDECTOMY HX 2004 VAGINOSCOPY 2018 FAMILY HISTORY Problem Relation Age of Onset Hypothyroidism Mother No Known Problems Father No Known Problems Brother No Known Problems Brother Cancer Maternal Grandfather Social History Tobacco Use Smoking status: Never Smokeless tobacco: Never Vaping Use Vaping Use: Never used Substance Use Topics Alcohol use: Yes Comment: occasional Drug use: Never Reviewed current medications, allergies, past medical history, surgical history, family history and social history today. REVIEW OF SYSTEMS All other reviewed and negative other than HPI. VITALS: LMP 07/25/2022 Last 4 Encounter Wt Readings: Date: Wt: 02/01/2023 67.6 kg (149 lb) 08/01/2022 66.7 kg (147 lb) 07/25/2022 66.2 kg (146 lb) PHYSICAL EXAMINATION: Patient is alert and oriented during visit. Answers appropriately. ASSESSMENT/PLAN: 1. Brittle nails - ICD9: 703.8, ICD10: L60.3 (primary diagnosis) - check labs. - CBC + DIFF - COMP METABOLIC PANEL - TSH BLD - T4/FTI/T4U - T3 BLD 2. Hair loss - ICD9: 704.00, ICD10: L65.9 - check labs. - CBC + DIFF - COMP METABOLIC PANEL - TSH BLD - T4/FTI/T4U - T3 BLD 3. Family history of thyroid disease - ICD9: V18.19, ICD10: Z83.49 - check labs. - CBC + DIFF - COMP METABOLIC PANEL - TSH BLD - T4/FTI/T4U - T3 BLD Ann Lopez MD [facility] 03-29-2023 History of Presen t illness Narrative Patient presents with: Acute Visit HPI:This Team Access Model visit is a virtual encounter. It required patient-provider interaction for the medical decision making as documented below. Patient has elected to have a visit through distance medicine I have communicated my name and active licensure. The patient's identity and physical location were verified at the time of this visit. Either the patient or their legal payable representative has been informed of the risks and benefits of -- and alternatives to -- treatment through a remote evaluation and consents to proceed with the evaluation remotely. Wants her thyroid checked. Mother has thyroid disease Is cold frequently. Has thin brittle hair. Has brittle hair. Did gain some weight No gi issues. She is fatigued. No palpitations or chest. Since here had a miscarriage. Genetic testing on fetus was ok. MEDICATIONS: Current Outpatient Medications Medication Sig Clindamycin-Benzoyl Peroxide 1.2 %(1 % base) -5 % gel APPLY ONCE DAILY TO ALL AREAS OF ACNE AT BEDTIME - WILL BLEACH CLOTHES UNTIL DRY. No current facility-administered medications for this visit. ALLERGIES: ALLERGIES Allergen Reactions Pollen Extracts Other: See Comments PAST MEDICAL HISTORY Diagnosis Date Cervical high risk HPV (human papillomavirus) test positive 2018 PAST SURGICAL HISTORY Procedure Laterality Date APPENDECTOMY HX 2004 VAGINOSCOPY 2018 FAMILY HISTORY Problem Relation Age of Onset Hypothyroidism Mother No Known Problems Father No Known Problems Brother No Known Problems Brother Cancer Maternal Grandfather Social History Tobacco Use Smoking status: Never Smokeless tobacco: Never Vaping Use Vaping Use: Never used Substance Use Topics Alcohol use: Yes Comment: occasional Drug use: Never Reviewed current medications, allergies, past medical history, surgical history, family history and social history today. REVIEW OF SYSTEMS All other reviewed and negative other than HPI. VITALS: LMP 07/25/2022 Last 4 Encounter Wt Readings: Date: Wt: 02/01/2023 67.6 kg (149 lb) 08/01/2022 66.7 kg (147 lb) 07/25/2022 66.2 kg (146 lb) PHYSICAL EXAMINATION: Patient is alert and oriented during visit. Answers appropriately. ASSESSMENT/PLAN: 1. Brittle nails - ICD9: 703.8, ICD10: L60.3 (primary diagnosis) - check labs. - CBC + DIFF - COMP METABOLIC PANEL - TSH BLD - T4/FTI/T4U - T3 BLD 2. Hair loss - ICD9: 704.00, ICD10: L65.9 - check labs. - CBC + DIFF - COMP METABOLIC PANEL - TSH BLD - T4/FTI/T4U - T3 BLD 3. Family history of thyroid disease - ICD9: V18.19, ICD10: Z83.49 - check labs. - CBC + DIFF - COMP METABOLIC PANEL - TSH BLD - T4/FTI/T4U - T3 BLD Ann Lopez MD documented in this encounter [facility] 02-01-2023 Note HNO ID: [id number] Author: Ann Lopez MD Service: ? Author Type: Physician Type: Progress Notes Filed: 02/01/2023 8:07 PM Note Text: Patient presents with: Cellulitis HPI: Patient presents today for office visit for follow up. On 01/30/23 was in urgent care @ [facility]. Started as what looked like raised area on neck. After using pimple cream, neosporin, and patch area was swollen and red. Given cephlexin. First dose started 01/30/23 at noon. Saw Pedro Pablo Hopper yesterday and culture was taken no growth so far. Last night with low grade fever 100. Tomorrow will be [address] Bradley at [facility] for her ob care. Pedro Pablo Hopper was wanting to rule out possible lyme's disease but since it was possibly early decided to wati. Pedro Pablo Hopper was concerned about Lyme's given its circular area with an area that is clear surrounding a red area with it that looked like a possible early erythema migrans. Does note recall a tic bite but [place]. Is not really tender to touch. . Is spreading slightly but has not been on the antibiotics long. The area she initially had has some crusting scabs. Her derm culture is so far showing no growth. No swollen glands. No headache or gi issues. MEDICATIONS: Current Outpatient Medications Medication Sig cephALEXin (KEFLEX) 500 mg capsule take 1 capsule by mouth four times a day for 7 days Clindamycin-Benzoyl Peroxide 1.2 %(1 % base) -5 % gel APPLY ONCE DAILY TO ALL AREAS OF ACNE AT BEDTIME - WILL BLEACH CLOTHES UNTIL DRY. No current facility-administered medications for this visit. ALLERGIES: ALLERGIES Allergen Reactions Pollen Extracts Other: See Comments PAST MEDICAL HISTORY Diagnosis Date Cervical high risk HPV (human papillomavirus) test positive 2018 PAST SURGICAL HISTORY Procedure Laterality Date APPENDECTOMY HX 2004 VAGINOSCOPY 2018 FAMILY HISTORY Problem Relation Age of Onset Hypothyroidism Mother No Known Problems Father No Known Problems Brother No Known Problems Brother Cancer Maternal Grandfather Social History Tobacco Use Smoking status: Never Smokeless tobacco: Never Vaping Use Vaping Use: Never used Substance Use Topics Alcohol use: Yes Comment: occasional Drug use: Never Reviewed current medications, allergies, past medical history, surgical history, family history and social history today. REVIEW OF SYSTEMS All other reviewed and negative other than HPI. VITALS: BP 104/70 Pulse 91 Temp 36.8 ?C (98.3 ?F) (Tympanic) Wt 67.6 kg (149 lb) LMP 07/25/2022 SpO2 98% BMI 23.34 kg/m? Last 4 Encounter Wt Readings: Date: Wt: 02/01/2023 67.6 kg (149 lb) 08/01/2022 66.7 kg (147 lb) 07/25/2022 66.2 kg (146 lb) PHYSICAL EXAMINATION: General appearance: Well appearing, alert, in no acute distress, well-hydrated, well nourished. Skin: has a large red circular area that is well demarcated on left shoulder. Slightly larger than the outlined pen marking. Does appear to have a bullseye like appearance. Not ike to touch. No palpable abscess. Lungs: Lungs clear to auscultation. No wheezing, rhonchi, rales Heart: RRR without murmur, gallop, or rubs. No ectopy Abdomen: Normal abdominal exam, Abdomen soft, non-tender. Bowel sounds normal. No masses, organomegaly Extremities: No deformities, edema, skin discoloration, clubbing or cyanosis. Good capillary refill. ASSESSMENT/PLAN: 1. Erythema migrans - ICD9: 529.1, ICD10: K14.1 - agree it does look more consistent with possible lyme's rash. Since keflex does not cover lyme's and should not use doxycycline which is preferred and so far culture is not growing things like MRSA, switch tonignt to ceftin which is recommended for lyme's if patient is and there is a question of lyme's(will still give some strep and MSSA coverage) Discussed risks and benefits of new medication with the patient. Advised them to call if any side effects or questions. Red flags for re-assessment reviewed with patient in detail. - check labs in an(we do not have a lab this evening). It may be early for lyme's titres but check to be on safe side. Touch base with me on Sunday am with phone call and prn. - CEFUROXIME AXETIL 500 MG TABLET - CBC + DIFF - LYME AB EARLY <=30 DAY SYMPTOMS - SED RATE WESTERGBRIDGETT Lopez MD [facility] 02-01-2023 History of Presen t illness Narrative Patient presents with: Cellulitis HPI: Patient presents today for office visit for follow up. On 01/30/23 was in urgent care @ [facility]. Started as what looked like raised area on neck. After using pimple cream, neosporin, and patch area was swollen and red. Given cephlexin. First dose started 01/30/23 at noon. Saw Pedro Pablo Hopper yesterday and culture was taken no growth so far. Last night with low grade fever 100. Tomorrow will be [address] Bradley at [facility] for her ob care. Pedro Pablo Hopper was wanting to rule out possible lyme's disease but since it was possibly early decided to wati. Pedro Pablo Hopper was concerned about Lyme's given its circular area with an area that is clear surrounding a red area with it that looked like a possible early erythema migrans. Does note recall a tic bite but has a [place]ed area on [place] property. Is not really tender to touch. . Is spreading slightly but has not been on the antibiotics long. The area she initially had has some crusting scabs. Her derm culture is so far showing no growth. No swollen glands. No headache or gi issues. MEDICATIONS: Current Outpatient Medications Medication Sig cephALEXin (KEFLEX) 500 mg capsule take 1 capsule by mouth four times a day for 7 days Clindamycin-Benzoyl Peroxide 1.2 %(1 % base) -5 % gel APPLY ONCE DAILY TO ALL AREAS OF ACNE AT BEDTIME - WILL BLEACH CLOTHES UNTIL DRY. No current facility-administered medications for this visit. ALLERGIES: ALLERGIES Allergen Reactions Pollen Extracts Other: See Comments PAST MEDICAL HISTORY Diagnosis Date Cervical high risk HPV (human papillomavirus) test positive 2018 PAST SURGICAL HISTORY Procedure Laterality Date APPENDECTOMY HX 2004 VAGINOSCOPY 2018 FAMILY HISTORY Problem Relation Age of Onset Hypothyroidism Mother No Known Problems Father No Known Problems Brother No Known Problems Brother Cancer Maternal Grandfather Social History Tobacco Use Smoking status: Never Smokeless tobacco: Never Vaping Use Vaping Use: Never used Substance Use Topics Alcohol use: Yes Comment: occasional Drug use: Never Reviewed current medications, allergies, past medical history, surgical history, family history and social history today. REVIEW OF SYSTEMS All other reviewed and negative other than HPI. VITALS: BP 104/70 Pulse 91 Temp 36.8 C (98.3 F) (Tympanic) Wt 67.6 kg (149 lb) LMP 07/25/2022 SpO2 98% BMI 23.34 kg/m Last 4 Encounter Wt Readings: Date: Wt: 02/01/2023 67.6 kg (149 lb) 08/01/2022 66.7 kg (147 lb) 07/25/2022 66.2 kg (146 lb) PHYSICAL EXAMINATION: General appearance: Well appearing, alert, in no acute distress, well-hydrated, well nourished. Skin: has a large red circular area that is well demarcated on left shoulder. Slightly larger than the outlined pen marking. Does appear to have a bullseye like appearance. Not ike to touch. No palpable abscess. Lungs: Lungs clear to auscultation. No wheezing, rhonchi, rales Heart: RRR without murmur, gallop, or rubs. No ectopy Abdomen: Normal abdominal exam, Abdomen soft, non-tender. Bowel sounds normal. No masses, organomegaly Extremities: No deformities, edema, skin discoloration, clubbing or cyanosis. Good capillary refill. ASSESSMENT/PLAN: 1. Erythema migrans - ICD9: 529.1, ICD10: K14.1 - agree it does look more consistent with possible lyme's rash. Since keflex does not cover lyme's and should not use doxycycline which is preferred and so far culture is not growing things like MRSA, switch tonignt to ceftin which is recommended for lyme's if patient is and there is a question of lyme's(will still give some strep and MSSA coverage) Discussed risks and benefits of new medication with the patient. Advised them to call if any side effects or questions. Red flags for re-assessment reviewed with patient in detail. - check labs in an(we do not have a lab this evening). It may be early for lyme's titres but check to be on safe side. Touch base with me on Sunday am with phone call and prn. - CEFUROXIME AXETIL 500 MG TABLET - CBC + DIFF - LYME AB EARLY <=30 DAY SYMPTOMS - SED RATE WESTERGREN Ann Lopez MD documented in this encounter [facility] 08-03-2022 Miscellaneous Notes Normal pap letter sent documented in this encounter [facility] 08-01-2022 Note HNO ID: [id number] Author: Destiney Mccarthy APRN.DRAW FIRE OPERATOR Service: ? Author Type: Nurse Practitioner Type: Progress Notes Filed: 08/01/2022 1:59 PM Note Text: Wringer And Setter offered: Patient declinesLyubov Alvarez is a 27 year old No obstetric history on file. who presents for an annual gynecologic exam without complaints. 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 Contraception: none Happy if occurs HPV vaccine: No Last Pap: 01/11/2021 normal HPV: positive unknown year History of abnormal pap: Yes colposcopy with mild changes Last mammogram: never Sexually active: Yes History of STDS: None Patient concerns for STD exposure: No. Time with current partner: 4-5 years Pain with intercourse: No Postcoital bleeding: No OB History No obstetric history on file. 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 No bloating, early satiety, indigestion, or increased flatulence. Bladder: No dysuria, gross hematuria, urinary frequency, urinary urgency, or incontinence. Breast: No breast lumps, nipple d/c, overlying skin changes, redness or skin retraction. Allergies and current medication updated:Yes EXAM: BP 100/62 Ht 5' 7 (1.70m) Wt 147 lb (66.7kg) LMP 07/25/2022 BMI 23.02 kg/(m2). GENERAL: pleasant, female in no apparent distress HEENT: Normocephalic, atraumatic, mucus membranes moist, and no lesions NECK: Supple, full range of motion, no adenopathy, and thyroid normal DERMATOLOGY: Normal, without lesions, non-icteric, and non-hirsute BREAST: soft, non-tender, symmetric, no dominant mass, normal nipple-areolar complex, no lymphadenopathy, and no nipple discharge CHEST: Normal inspiratory effort ABDOMEN: soft, non-tender, and no masses PELVIC: external genitalia normal, normal Bartholin's glands, urethra, [place]'s glands, no vulvar lesions, no cervical lesions, good vaginal support, physiologic discharge present, normal appearing perineal body and perianal region BIMANUAL: uterus normal size, shape and consistency, no adnexal masses, and non-tender RECTOVAGINAL: deferred. NEURO: alert and oriented x3,exam grossly non-focal EXTREMITIES: normal ASSESSMENT/PLAN: 1) Health maintenance: Pap done with reflex HPV. Nutrition, exercise and routine health maintenance exams reviewed. HPV vaccine: discussed, not interested 2) Contraception: none. Contraceptive options reviewed and information provided. 3) STD screening: Declined STD check. 4) Follow up one year or sooner as needed Destiney Mccarthy APRN.CNP [facility] 08-01-2022 Instructions Destiney Mccarthy APRN.CNP - 08/01/2022 1:47 PM EST vitamin with 0.4 mg folic acid documented in this encounter [facility] 08-01-2022 History of Presen t illness Narrative Wringer And Setter offered: Patient declines. Kim is a 27 year old No obstetric history on file. who presents for an annual gynecologic exam without complaints. 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 Contraception: none Happy if occurs HPV vaccine: No Last Pap: 01/11/2021 normal HPV: positive unknown year History of abnormal pap: Yes colposcopy with mild changes Last mammogram: never Sexually active: Yes History of STDS: None Patient concerns for STD exposure: No. Time with current partner: 4-5 years Pain with intercourse: No Postcoital bleeding: No OB History No obstetric history on file. 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 No bloating, early satiety, indigestion, or increased flatulence. Bladder: No dysuria, gross hematuria, urinary frequency, urinary urgency, or incontinence. Breast: No breast lumps, nipple d/c, overlying skin changes, redness or skin retraction. Allergies and current medication updated:Yes EXAM: BP 100/62 Ht 5' 7 (1.70m) Wt 147 lb (66.7kg) LMP 07/25/2022 BMI 23.02 kg/(m^2). GENERAL: pleasant, female in no apparent distress HEENT: Normocephalic, atraumatic, mucus membranes moist, and no lesions NECK: Supple, full range of motion, no adenopathy, and thyroid normal DERMATOLOGY: Normal, without lesions, non-icteric, and non-hirsute BREAST: soft, non-tender, symmetric, no dominant mass, normal nipple-areolar complex, no lymphadenopathy, and no nipple discharge CHEST: Normal inspiratory effort ABDOMEN: soft, non-tender, and no masses PELVIC: external genitalia normal, normal Bartholin's glands, urethra, [place]'s glands, no vulvar lesions, no cervical lesions, good vaginal support, physiologic discharge present, normal appearing perineal body and perianal region BIMANUAL: uterus normal size, shape and consistency, no adnexal masses, and non-tender RECTOVAGINAL: deferred. NEURO: alert and oriented x3,exam grossly non-focal EXTREMITIES: normal ASSESSMENT/PLAN: 1) Health maintenance: Pap done with reflex HPV. Nutrition, exercise and routine health maintenance exams reviewed. HPV vaccine: discussed, not interested 2) Contraception: none. Contraceptive options reviewed and information provided. 3) STD screening: Declined STD check. 4) Follow up one year or sooner as needed Destiney Mccarthy APRN.DRAW FIRE OPERATOR documented in this encounter [facility] 07-26-2022 Miscellaneous Notes Patient contacted and given provider's message below. Anni Sandoval RN She has covid based on testing. Needs to stay in quarantine for five days from onset of symptoms and wear mask around all others for next five. Really does not meet criteria for oral meds. Call if any worsening symptoms, particularly shortness of breath. documented in this encounter [facility] 07-25-2022 Note HNO ID: [id number] Author: RT Mendoza(R) Service: Nuclear Medicine Author Type: Technologist Type: Progress Notes Filed: 07/25/2022 1:58 PM Note Text: Radiology Service Progress Note PATIENT NAME: Kim Lott DATE OF SERVICE: July 25, 2022 TIME: 1:52 PM PATIENT IDENTITY VERIFICATION COMPLETED USING TWO (2) IDENTIFIERS: Name and Date of confirmed by patient verbally. FALL SCREENING: Has the patient had 2 falls in the last year or 1 fall with injury or currently using an Ambulatory Assistive Device (Walker, Cane, Wheelchair, Crutches, etc.)? No PATIENT GENDER DATA: Female. status: : No status: NO. PATIENT RELEVANT IMPLANT DATA REVIEWED: Not Applicable RADIOLOGY DEPARTMENT: General X-ray: Exam(s) Completed: Upper Extremity X-Ray(s): Hand, left PERIPHERAL IV DATA: Not applicable SIGNED BY: RT Mendoza(R) July 25, 2022 1:52 PM [facility] 07-25-2022 Influenza virus A and B RNA and SARS-CoV-2 (COVID-19) N gene panel SEPIDEH+probe (Resp) COVID 19 RESULT: SARS-CoV-2 (Agent of COVID-19) Detected by RT-PCR or equivalent method. [id number] (ENA)_EUA This test was developed and its performance characteristics determined by [facility]'s [facility]. This test has been authorized by FDA under an Emergency Use Authorization (EUA). This test has been validated in accordance with the FDA's Guidance Document Policy for Diagnostics Testing in Laboratories Certified to Perform High Complexity Testing under CLIA prior to Emergency use Authorization for Coronavirus Disease 2019 during the Public Health Emergency issued on September 27, 2019. Test performed by [facility], [facility], [address] [place] [address]. INFLUENZA A PCR: Negative for Influenza A by RT-PCR INFLUENZA B PCR: Negative for Influenza B by RT-PCR [facility] Encounter for gynecological examination (general) (routine) without abnormal findings- Primary Screening for cervical cancer Screening for malignant neoplasm of the cervix Screen for STD (sexually transmitted disease) Screening examination for venereal disease [facility] Diagnosis Erythema migrans- Primary [facility] Diagnosis Brittle nails- Primary Other specified disease of nail Hair loss Alopecia, unspecified Family history of thyroid disease Family history of other endocrine and metabolic diseases documented in this encounter [facility] Summary Purpose Family History No Family History Records FoundNo Family History Records FoundNo Family History Records FoundNo Family History Records Found Advance Directives No Advanced Directives Records FoundNo Advanced Directives Records FoundNo Advanced Directives Records FoundNo Advanced Directives Records Found Reason for Referral Specialty Diagnoses / Procedures Referred By Contac t Referred To Contact Gynecology Diagnoses Screening for cervical cancer Procedures CONSULT TO GYNECOLOGY OFFICE/OUTPATIENT [facility] 60-74 MINUTES Ann Lopez MD [address] [place] [address] Referral ID Status Reason Start Date Expiration Date Visits Requested Visits Authorized [id number] Authorized PCP Requested Referral Auto-Generate d Referral 2 07/25/2023 1 1 Specialty Diagnoses / Procedures Referred By Contac t Referred To Contact XR IMAGING Diagnoses Pain of finger of left hand Procedures XR HAND GENERAL 3V PA/LAT/OBL LEFT RADEX HAND MINIMUM 3 VIEWS Ann Lopez MD [address] [facility] [place] [address] Xr Imaging Referral ID Status Reason Start Date Expiration Date V isits Requested Visits Authorized [id number] Closed Auto-Generate d Referral 07/25/2022 08/24/2023 1 1 Health Concerns Infection Onset Date Last Indicated Resolved Time COVID-19 Confirmed 07/25/2022 07/25/2022 Additional Source Comments INFORMATION SOURCE (unrecogn ized section and content) DATE CREATED AUTHOR AUTHOR'S ORGANIZ ATION 03/06/2020 [facility] DATE CREATED AUTHOR AUTHOR'S ORGANIZ ATION 01/12/2021 [facility] DATE CREATED AUTHOR AUTHOR'S ORGANIZ ATION 04/04/2023 [facility] Source Comments (unrecognize d section and content) In the event this informatio n is protected by the Federal Confidentiality of Alcohol and Drug Abuse Patient Records regulations: The Federal rules restrict any use of the information to criminally investigate or prosecute any alcohol or drug abuse patient.[facility] the event this information is protected by the Federal Confidentiality of Alcohol and Drug Abuse Patient Records regulations: The Federal rules restrict any use of the information to criminally investigate or prosecute any alcohol or drug abuse patient.[facility] the event this information is protected by the Federal Confidentiality of Alcohol and Drug Abuse Patient Records regulations: The Federal rules restrict any use of the information to criminally investigate or prosecute any alcohol or drug abuse patient.[facility] the event this information is protected by the Federal Confidentiality of Alcohol and Drug Abuse Patient Records regulations: The Federal rules restrict any use of the information to criminally investigate or prosecute any alcohol or drug abuse patient.[facility] the event this information is protected by the Federal Confidentiality of Alcohol and Drug Abuse Patient Records regulations: The Federal rules restrict any use of the information to criminally investigate or prosecute any alcohol or drug abuse patient.[facility] Reason for Visit (unrecogniz ed section and content) Reason Comments Results Reason Comments Well Woman Specialty Diagnoses / Procedures Referred By Conttara t Referred To Contact Gynecology Diagnoses Screening for cervical cancer Procedures CONSULT TO GYNECOLOGY OFFICE/OUTPATIENT [facility] 60-74 MINUTES Ann Lopez MD [address] [place] [address] Referral ID Status Reason Start Date Expiration Date V isits Requested Visits Authorized [id number] Closed PCP Requested Referral Auto-Generated Referral 07/25/2022 07/25/2023 1 1 Reason Comments Cellulitis Reason Comments Acute Visit Care Teams (unrecognized sec tion and content) Customer Experience Specialist Relationship Specialty Start Date End Date Ann Lopez MD [address] [place] [address] PCP - General Family Medicine 02/01/23 FOR RECORDS PERTAINING TO PATIENTS WHO ARE OR HAVE BEEN ENROLLED IN A CHEMICAL DEPENDENCY/SUBSTANCEABUSE PROGRAM, SOME INFORMATION MAY BE OMITTED. This clinical summary was aggregated from multiple sources. Caution should be exercised in using it in the provision of clinical care. This summary normalizes information from multiple sources, and as a consequence, information in this document may materially change the coding, format and clinical context of patient data. In addition, data may be omitted in some cases. CLINICAL DECISIONS SHOULD BE BASED ON THE PRIMARY CLINICAL RECORDS. [employer] provides no warranty or guarantee of the accuracy or completeness of information in this document.
[2023-08-18 22:43] LABS: Color, Urine Yellow (Yellow); Glucose, Dipstick Normal (Normal); Ketone-Dipstick Negative (Negative); Leukocyte Esterase-Dipstick 25 /ul (Negative); Nitrite-Dipstick Negative (Negative); Occult Blood-Urine 10 /ul (Negative); Protein-Dipstick 15 mg/dl (Negative); Urine Bilirubin Dipstick Negative (Negative); Urine Clarity Clear (Clear); Urine Urobilinogen Normal (Normal); Urine pH 6.5 (5.0 - 8.0)
[2023-08-18 22:49] LABS: Bacteria RARE /hpf (None Seen); Mucous, Urine RARE /hpf (<or=2+); Red Blood Cells-Urine 0-5 SEEN /hpf (0-5); Squamous Epithelial Cells - UA 0-5 SEEN /hpf (5-10); White Blood Cells 0-5 SEEN /hpf (0-5)
[2023-08-18] MEDS: 0.9% Normal Saline (1000mL) 1,000 ML 1000 ML IV (22:49)
[2023-08-18] MEDS: Ondansetron 4 MG/2 ML Vial IV (22:49)
[2023-08-18 23:05] LABS: Absolute Lymphocyte Count 1.73 X10^3/uL (0.83-4.51); Absolute Neutrophil Count 4.4 X10^3/uL (2.0-7.7); Basophil# 0.04 X10^3/uL; Basophil% 0.6 % (0-1); Eosinophils% 1.4 % (0-5); Hematocrit 36.5 % (37-47); Lymphocyte # 1.73 X10^3/ul (0.83-4.51); Lymphocyte % 24.7 % (19-41); Mean Corp Hgb Conc 32.9 g/dL (32-36); Mean Corpuscular Hgb 29.9 pg (27.0-32.0); Mean Corpuscular Volume 90.8 fL (81-99); Mean Platelet Vol. 8.9 fl (6.2-12.0); Monocyte# 0.69 X10^3/uL; Monocyte% 9.8 % (0-10); NRBC Flagged by Analyzer 0 % (0-5); Neutrophil # 4.43 X10^3/uL (2.7-7.7); Neutrophil % 63.2 % (47-70); Platelet Count 234 K/mm3 (150-450); Red Blood Count 4.02 M/mm3 (4.2-5.4)
[2023-08-18 23:23] LABS: AST(SGOT) 10 U/L (15-37); Alanine Aminotransfer ALT/SGPT 9 U/L (13-56); Albumin, Serum 3.3 g/dL (3.2-5.0); Alkaline Phosphatase 46 U/L (45-117); Anion Gap 4 (5-15); BUN 8 mg/dL (7-18); Bilirubin, Direct 0.12 mg/dL (0.00-0.30); Calcium,Total 9.4 mg/dL (8.5-10.1); Chloride 105 mmol/L (98-107); Creatinine, Serum 0.53 mg/dL (0.55-1.02); EST Glomerular Filtration Rate 144 mL/min (>60); Est Glom Filt Rate - Afr Amer 175 mL/min (>60); Estimated Creatinine Clearance 153.68 ml/min; Globulin 3.7 g/dL (2.2-4.2); Glucose 104 mg/dL (74-106); Lipase 41 U/L (13-75); Potassium 3.6 mmol/L (3.5-5.1); Sodium Level 136 mmol/L (136-145)
== END 2023-08-19 | disposition home or self-care (01) ==
PROVIDERS: Emergency Provider Emergency Medicine; PCP Family Medicine; Visit Provider Emergency Medicine
DX: O99.619 Diseases of the digestive system complicating pregnancy, unspecified trimester (principal); K92.0 Hematemesis; O21.9 Vomiting of pregnancy, unspecified; Z3A.00 Weeks of gestation of pregnancy not specified; Z90.49 Acquired absence of other specified parts of digestive tract
CPT/HCPCS: 80048; 80076; 81001; 83690; 85025; 96361; 96374; 99283; J7030; A4216; J2405

== ENCOUNTER → 2023-08-28 | Outpatient (CLI) | payer OTHER, SELFPAY | END | disposition home or self-care (01) | LOC: LABSPEC 16:50 | PROVIDERS: PCP Family Medicine; Referring Provider Advanced Practice Midwife; Visit Provider Advanced Practice Midwife | DX: O26.899 Other specified pregnancy related conditions, unspecified trimester (principal); N89.8 Other specified noninflammatory disorders of vagina; Z3A.00 Weeks of gestation of pregnancy not specified; O99.891 Other specified diseases and conditions complicating pregnancy | CPT/HCPCS: 87070; 87205 ==

== ENCOUNTER → 2023-09-21 | Outpatient (CLI) | payer OTHER, SELFPAY ==
--- OUTSIDE RECORDS SUMMARY | 2023-09-21 18:47 | XMS RPT_ITS | CCD ---
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 Name Role Phone Juan, Ann Unavailable Unavailable Juan, Ann Unavailable Unavailable Luisa Grover LPN Unavailable Unavailab le BERTRAND DO, ROXANN Camarillo Attending Unavailable BERTRAND DO, ROXANN Camarillo Consulting Unavailable BERTRAND DOROXANN Admitting Unavailable NONE, NONE Primary Care Unavailable NONE, NONE Consulting Unavailable Unavailable Primary Care Provider UnavailAnn Arrieta MD Primary Care Provider ANN LOPEZ Referring Unavailable [...] Propensity to adverse reactions to drug (disorder) [facility] Repository (1 source) Pollen; Translations: [POLLEN] allergy to substance [facility] Work Phone: (4 sources) Pollen; Translations: [POLLEN EXTRACTS] Drug Allergy 7 Other: See Comments [facility] Work Phone: Medications Current Medications Medication [...] daily on days 2 through 5 AZITHROMYCIN [id number] Clint HIGGINS benzonatate 200 mg oral capsule (2 sources) Non-narcotic Antitussive Start: 04-30-2017 BENZONATATE 200 MG CAPS 1 capsule every 8 hours as needed for cough BENZONATATE [id number] Clint HIGGINS benzoyl peroxide 0.05 mg/mg / [...] of hair; Translations: [Nonscarring hair loss, unspecified] 08-31-2023 Episodic Other skin disorders (1 source) Nail [...] 98.29 [degF] Ann Lopez MD Work Phone: [facility] 02-01-2023 18:39-0400 Body weight 67.59 kg Ann Lopez MD Work Phone: [facility] 02-01-2023 18:39-0400 Diastolic blood pressure 70 mm[Hg] Ann Lopez MD Work Phone: [facility] 02-01-2023 18:39-0400 Heart rate 91 /min Ann Lopez MD Work Phone: [facility] 02-01-2023 18:39-0400 SaO2% (BldA) [Mass fraction] 98 % Ann Lopez MD Work Phone: [facility] 02-01-2023 18:39-0400 Systolic blood pressure 104 mm[Hg] Ann Lopez MD Work Phone: [facility] 08-01-2022 13:27-0500 Body height 170.2 cm Destiney Mccarthy APRN.ACID LOADER Work Phone: [facility] 08-01-2022 13:27-0500 Body weight 66.68 kg Destiney Mccarthy APRN.ACID LOADER Work Phone: [facility] 08-01-2022 13:27-0500 Diastolic blood pressure 62 mm[Hg] Destiney Mccarthy APRN.ACID LOADER Work Phone: [facility] 08-01-2022 13:27-0500 Systolic blood pressure 100 mm[Hg] Destiney Mccarthy APRN.ACID LOADER Work Phone: [facility] 07-25-2022 13:02-0500 Body height 172 cm Ann Lopez MD Work Phone: [facility] 07-25-2022 13:02-0500 Body weight 66.22 kg Ann Lopez MD Work Phone: [facility] 07-25-2022 13:02-0500 Diastolic blood pressure 70 mm[Hg] Ann Lopez MD Work Phone: [facility] 07-25-2022 13:02-0500 Heart rate 99 /min Ann Lopze MD Work Phone: [facility] 07-25-2022 13:02-0500 Respiratory rate 16 /min Ann Lopez MD Work Phone: [facility] 07-25-2022 13:02-0500 SaO2% (BldA) [Mass fraction] 99 % Ann Lopez MD Work Phone: [facility] 07-25-2022 13:02-0500 Systolic blood pressure 110 mm[Hg] Ann Lopez MD Work Phone: [facility] 04-30-2017 16:33-0400 BMI (Body Mass Index) 23.63 kg/m2 Luisa Grover LPN [facility] Work Phone: 04-30-2017 16:33-0400 Body Temperature 98.8 [degF] Luisa Grover LPN [facility] Work Phone: 04-30-2017 16:33-0400 BP Diastolic 74 mm[Hg] Luisa Grover LPN [facility] Work Phone: 04-30-2017 16:33-0400 BP Systolic 104 mm[Hg] Luisa Grover LPN [facility] Work Phone: 04-30-2017 16:33-0400 Height 172.72 cm Luisa Grover LPN [facility] Work Phone: 04-30-2017 16:33-0400 Pulse (Heart Rate) 83 /min Luisa Grover LPN [facility] Work Phone: 04-30-2017 16:33-0400 Respiratory Rate 14 /min Luisa Grover LPN [facility] Work Phone: 04-30-2017 16:33-0400 Weight 70.49 kg Luisa Grover LPN [facility] Work Phone: Encounters Encounter Date Encounter Type Care Provider Facility Start: 04-03-2023 End: 04-04-2023 ambulatory ANN LOPEZ Facility:[facility] Start: 03-29-2023 End: 03-29-2023 ambulatory Ann Lopez MD Work Phone: [facility] Procedures Date Procedure Procedure Detail Performing Clinician Start: 08-01-2022 Cytp c/v auto thin l yr prepj scr mnl rescr phys Destiney Mccarthy COMPUTATIONAL THEORY SCIENTIST.ACID LOADER Work Phone: Start: 07-25-2022 COVID WITH FLUA+B, ROUTINE Ann Lopez MD Work Phone: Plan of Treatment Date Care Activity Detail Author Start: 08-01-2025 PAP TESTING PAP TESTING [facility] Start: 03-30-2023 Influenza vaccination INFLUENZA (#1) [facility] Start: 03-29-2023 End: 05-29-2023 CBC W Auto Differential panel - Blood CBC + DIFF Lab Routine Brittle nails Hair loss Family history of thyroid disease Expected: 03/29/2023, Expires: 05/29/2023 [facility] Work Phone: Payers Date Payer Category Payer Unknown [id number] 2017 Unknown 1995 Unknown [id number] Unknown [id number] Social History Date Type Detail Facility Start: 07-25-2022 Tobacco smoking status NHIS Never sm oked tobacco [facility] Start: 07-25-2022 Tobacco use and exposure Smoke less tobacco non-user [facility] Start: 07-18-2022 History SDOH Alcohol Frequency 2 [facility] Start: 07-18-2022 History SDOH Social Connections Phone 5 [facility] Start: 07-18-2022 History SDOH Social Connections Ep[employer] 3 [facility] Start: 07-18-2022 History SDOH Social Connections Membership 1 [facility] Start: 1995 Sex Assigned At Not on file [facility] Start: 08-01-2022 End: 02-01-2023 Alcohol intake Current drinker of alcohol (finding) [facility] Start: 08-01-2022 Alcohol [facility] Start: 07-18-2022 End: 02-01-2023 History of Social function [facility] Start: 07-18-2022 End: 02-01-2023 Social connection and isolation panel [facility] Do you belong to any clubs or organizations such as mosque groups, unions, fraternal or athletic groups, or school groups? Yes [facility] Are you now , , , , never or living with a partner? [facility] How often to you hav e a drink containing alcohol? Monthly or less [facility] How many standard dr inks containing alcohol do you have on a typical day? 3 or 4 [facility] How often do you hav e 6 or more drinks on 1 occasion? Less than monthly [facility] How hard is it for y ou to pay for the very basics like food, housing, medical care, and heating Not hard at all [facility] Do you feel stress - tense, restless, nervous, or anxious, or unable to sleep at night because your mind is troubled all the time - these days [OSQ] Not at all [facility] (I/We) worried wheth er (my/our) food would run out before (I/we) got money to buy more. Never true [facility] In the past 12 month s, was there a time when you were not able to pay the mortgage or rent on time? No [facility] Clinical Notes 07-25-2022 to 03-29-2023 Ann Lopez MD - 03/29/2023 10:06 AM Roseline Lopez MD - 02/01/2023 6:43 PM EDTResult Encounter Note - Nicolle Tomas - 08/03/2022 10:49 AM ESTPatient Instructions Note Date & Type Note Facility 03-29-2023 Note HNO ID: [id number] Author: Ann Lopez MD Service: ? Author [...] visit. Either the patient or their legal mill representative has been informed of the risks [...] high risk HPV (human papillomavirus) test positive 2017 PAST SURGICAL HISTORY Procedure Laterality Date APPENDECTOMY [...] T4/FTI/T4U - T3 BLD Ann Lopez MD [facility] 03-29-2023 History of Presen t [...] visit. Either the patient or their legal mill representative has been informed of the risks [...] Ann Lopez MD documented in this encounter [facility] 02-01-2023 Note HNO ID: [id number] Author: Ann Lopez MD Service: ? Author [...] [address] Bradley at [facility] for her ob care. Pedro Pablo [...] - SED RATE WESTERGREN Ann Lopez MD [facility] 02-01-2023 History of Presen t [...] [address] Bradley at [facility] for her ob care. Pedro Pablo [...] Ann Lopez MD documented in this encounter [facility] 08-03-2022 Miscellaneous Notes Normal pap letter sent documented in this encounter [facility] 08-01-2022 Note HNO ID: [id number] Author: Destiney Mccarthy APRN.ACID LOADER Service: ? Author Type: Nurse Practitioner Type: Progress Notes Filed: 08/01/2022 1:59 PM Note Text: Manager Media Relations offered: Patient declinesLyubov Alvarez is a 27 [...] OB History No obstetric history on file. Activated Sludge Operator History LMP: Age at Menarche: Age at First : Age at Menopause: Activated Sludge Operator History Comments: Sexual Activity: No sexual activity [...] external genitalia normal, normal Bartholin's glands, urethra, Amagansett's glands, no vulvar lesions, no cervical lesions, [...] or sooner as needed Destiney Mccarthy APRN.CNP [facility] 08-01-2022 Instructions Destiney Mccarthy APRN.CNP - 08/01/2022 1:47 PM EST vitamin with 0.4 mg folic acid documented in this encounter [facility] 08-01-2022 History of Presen t illness Narrative Manager Media Relations offered: Patient declines. Kim is a 27 [...] OB History No obstetric history on file. Activated Sludge Operator History LMP: Age at Menarche: Age at First : Age at Menopause: Activated Sludge Operator History Comments: Sexual Activity: No sexual activity [...] external genitalia normal, normal Bartholin's glands, urethra, Am[place]ett's glands, no vulvar lesions, no cervical lesions, [...] year or sooner as needed Destiney Mccarthy APRN.ACID LOADER documented in this encounter [facility] 07-26-2022 Miscellaneous Notes Patient contacted and given provider's message below. Anni Sandoval RN She has covid based on testing. Needs to stay in quarantine for five days from onset of symptoms and wear mask around all others for next five. Really does not meet criteria for oral meds. Call if any worsening symptoms, particularly shortness of breath. documented in this encounter [facility] 07-25-2022 Note HNO ID: [id number] Author: RT Mendoza(R) Service: Nuclear Medicine Author [...] RT Mendoza(R) July 25, 2022 1:52 PM [facility] 07-25-2022 Influenza virus A and B RNA and SARS-CoV-2 (COVID-19) N gene panel SEPIDEH+probe (Resp) COVID 19 RESULT: SARS-CoV-2 (Agent of COVID-19) Detected by RT-PCR or equivalent method. tamar [id number] [employer]itness, [employer] (ENA)_EUA This test was developed and its performance characteristics determined by [facility]'s [facility]. This test has been authorized by FDA under an Emergency Use Authorization (EUA). This test has been validated in accordance with the FDA's Guidance Document Policy for Diagnostics Testing in Laboratories Certified to Perform High Complexity Testing under CLIA prior to Emergency use Authorization for Coronavirus Disease 2019 during the Public Health Emergency issued on September 27, 2019. Test performed by [facility], [facility] [place], [address] [place] [address]. INFLUENZA A PCR: Negative for Influenza A by RT-PCR INFLUENZA B PCR: Negative for Influenza B by RT-PCR [facility] Diagnosis Encounter for gynecological examination (general) (routine) without abnormal findings- Primary Screening for cervical cancer Screening for malignant neoplasm of the cervix Screen for STD (sexually transmitted disease) Screening examination for venereal disease [facility] Diagnosis Erythema migrans- Primary [facility] Diagnosis Brittle nails- Primary Other specified disease of nail Hair loss Alopecia, unspecified Family history of thyroid disease Family history of other endocrine and metabolic diseases documented in this encounter [facility] Summary Purpose Family History No Family [...] cervical cancer Procedures CONSULT TO GYNECOLOGY OFFICE/OUTPATIENT [facility] 60-74 MINUTES Ann Lopez MD [address] [place] [address] Referral ID Status Reason Start Date Expiration Date Visits Requested Visits Authorized [id number] Authorized PCP Requested Referral Auto-Generate d Referral 2 07/25/2023 1 1 Specialty Diagnoses / Procedures Referred By Contac t Referred To Contact XR IMAGING Diagnoses Pain of finger of left hand Procedures XR HAND GENERAL 3V PA/LAT/OBL LEFT RADEX HAND MINIMUM 3 VIEWS Ann Lopez MD [address] [facility] [place] [place] [address] Xr Imaging Referral ID Status Reason Start Date Expiration Date V isits Requested Visits Authorized [id number] Closed Auto-Generate d Referral 07/25/2022 08/24/2023 1 1 Health Concerns Infection Onset Date Last Indicated Resolved Time COVID-19 Confirmed 07/25/2022 07/25/2022 Additional Source Comments INFORMATION SOURCE (unrecogn ized section and content) DATE CREATED AUTHOR AUTHOR'S ORGANIZ ATION 03/06/2020 [facility] DATE CREATED AUTHOR AUTHOR'S ORGANIZ ATION 01/12/2021 [facility] DATE CREATED AUTHOR AUTHOR'S ORGANIZ ATION 04/04/2023 [facility] Source Comments (unrecognize d section and content) In the event this informatio n is protected by the Federal Confidentiality of Alcohol and Drug Abuse Patient Records regulations: The Federal rules restrict any use of the information to criminally investigate or prosecute any alcohol or drug abuse patient.[facility] the event this information is protected by the Federal Confidentiality of Alcohol and Drug Abuse Patient Records regulations: The Federal rules restrict any use of the information to criminally investigate or prosecute any alcohol or drug abuse patient.[facility] the event this information is protected by the Federal Confidentiality of Alcohol and Drug Abuse Patient Records regulations: The Federal rules restrict any use of the information to criminally investigate or prosecute any alcohol or drug abuse patient.[facility] the event this information is protected by the Federal Confidentiality of Alcohol and Drug Abuse Patient Records regulations: The Federal rules restrict any use of the information to criminally investigate or prosecute any alcohol or drug abuse patient.[facility] HospitalIn the event this information is protected by the Federal Confidentiality of Alcohol and Drug Abuse Patient Records regulations: The Federal rules restrict any use of the information to criminally investigate or prosecute any alcohol or drug abuse patient.[facility] Reason for Visit (unrecogniz ed section and content) Reason Comments Results Reason Comments [facility] Specialty Diagnoses / Procedures Referred By Conttara t Referred To Contact Gynecology Diagnoses Screening for cervical cancer Procedures CONSULT TO GYNECOLOGY OFFICE/OUTPATIENT [facility] 60-74 MINUTES Ann Lopez MD [address] [place] [address] Referral ID Status Reason Start Date Expiration Date V isits Requested Visits Authorized [id number] Closed PCP Requested Referral Auto-Generated Referral 07/25/2022 07/25/2023 1 1 Reason Comments Cellulitis Reason Comments Acute Visit Care Teams (unrecognized sec tion and content) Natural Gas Plant Technician Relationship Specialty Start Date End Date Ann Lopez MD [address] [place] [address] PCP - General Family Medicine 02/01/23 FOR [...] BE BASED ON THE PRIMARY CLINICAL RECORDS. [employer] provides no warranty or guarantee of the accuracy or completeness of information in this document.
== END | disposition home or self-care (01) ==
LOC: LABSPEC 16:30
PROVIDERS: PCP Family Medicine; Referring Provider Advanced Practice Midwife; Visit Provider Advanced Practice Midwife
DX: O26.899 Other specified pregnancy related conditions, unspecified trimester (principal); Z3A.00 Weeks of gestation of pregnancy not specified; R10.2 Pelvic and perineal pain; O34.60 Maternal care for abnormality of vagina, unspecified trimester; N89.8 Other specified noninflammatory disorders of vagina
CPT/HCPCS: 87070; 87086; 87205

== ENCOUNTER → 2023-12-03 | Outpatient (CLI) | payer OTHER, SELFPAY ==
[2023-12-03 09:21] LABS: Absolute Lymphocyte Count 1.45 X10^3/uL (0.83-4.51); Absolute Neutrophil Count 6.7 X10^3/uL (2.0-7.7); Basophil# 0.05 X10^3/uL; Basophil% 0.5 % (0-1); Eosinophil# 0.06 X10^3/uL; Eosinophils% 0.7 % (0-5); Hematocrit 34.6 % (37-47); Hemoglobin 11.3 g/dL (12.0-15.0); Lymphocyte # 1.45 X10^3/ul (0.83-4.51); Lymphocyte % 15.8 % (19-41); Mean Corp Hgb Conc 32.7 g/dL (32-36); Mean Corpuscular Hgb 30.5 pg (27.0-32.0); Mean Corpuscular Volume 93.3 fL (81-99); Mean Platelet Vol. 8.6 fl (6.2-12.0); Monocyte# 0.82 X10^3/uL; Monocyte% 8.9 % (0-10); NRBC Flagged by Analyzer 0 % (0-5); Neutrophil # 6.71 X10^3/uL (2.7-7.7); Neutrophil % 73.2 % (47-70); Platelet Count 230 K/mm3 (150-450); RBC Distribution Width SD 40.9 fl (35.1-43.9); Red Blood Count 3.71 M/mm3 (4.2-5.4); White Blood Count 9.2 K/mm3 (4.4-11.0)
[2023-12-03 10:00] LABS: HIV - WCH Non-Reactive (Nonreactive); Syphilis Antibodies Non-reactive
[2023-12-03 10:05] LABS: Glucose Challenge Gest 1H 50g 109 mg/dL (70-140)
== END | disposition home or self-care (01) ==
LOC: PAVLAB 08:50
PROVIDERS: PCP Family Medicine; Referring Provider Obstetrics & Gynecology; Visit Provider Obstetrics & Gynecology
DX: O09.90 Supervision of high risk pregnancy, unspecified, unspecified trimester (principal); Z13.1 Encounter for screening for diabetes mellitus; Z3A.00 Weeks of gestation of pregnancy not specified
CPT/HCPCS: 36415; 82950; 85025; 86703; 86780

== ENCOUNTER → 2023-12-11 | Outpatient (CLI) | payer OTHER, SELFPAY | END | disposition home or self-care (01) | LOC: LABSPEC 16:51 | PROVIDERS: PCP Family Medicine; Referring Provider Advanced Practice Midwife; Visit Provider Advanced Practice Midwife | DX: O26.899 Other specified pregnancy related conditions, unspecified trimester (principal); R10.9 Unspecified abdominal pain; Z3A.00 Weeks of gestation of pregnancy not specified | CPT/HCPCS: 87086; 87088 ==

== ENCOUNTER 2024-01-05 01:30 | Outpatient (CLI) | payer OTHER, SELFPAY ==
[2024-01-05 01:56] VITALS: BMI 27.6
[2024-01-05 02:02] VITALS: BP 115/70; PULSE 83
[2024-01-05 02:04] VITALS: PULSE 82; RESP 14; TEMP 36.4; O2SAT 97
[2024-01-05 02:17] LABS: Bacteria 0 SEEN /hpf (None Seen); Red Blood Cells-Urine 0 SEEN /hpf (0-5); White Blood Cells 0 SEEN /hpf (0-5)
[2024-01-05 02:19] LABS: Glucose, Dipstick Normal (Normal); Ketone-Dipstick Negative (Negative); Leukocyte Esterase-Dipstick Negative /ul (Negative); Nitrite-Dipstick Negative (Negative); Occult Blood-Urine Negative /ul (Negative); Protein-Dipstick Negative (Negative); Urine Bilirubin Dipstick Negative (Negative); Urine Urobilinogen Normal (Normal)
[2024-01-05 02:21] LABS: Color, Urine Straw (Yellow); Urine Clarity Clear (Clear)
[2024-01-05 02:30] LABS: Amorphous Sediment 2+; Mucous, Urine RARE /hpf (<or=2+); Squamous Epithelial Cells - UA 5-10 SEEN /hpf (5-10)
[2024-01-05] MEDS: LACTATED RINGERS 500 ML 999 ML IV (02:37)
[2024-01-05 02:48] LABS: Absolute Lymphocyte Count 1.88 X10^3/uL (0.83-4.51); Basophil# 0.04 X10^3/uL; Basophil% 0.4 % (0-1); Eosinophils% 0.9 % (0-5); Hematocrit 34.2 % (37-47); Hemoglobin 11.4 g/dL (12.0-15.0); Lymphocyte # 1.88 X10^3/ul (0.83-4.51); Mean Corp Hgb Conc 33.3 g/dL (32-36); Mean Corpuscular Hgb 30.9 pg (27.0-32.0); Mean Corpuscular Volume 92.7 fL (81-99); Mean Platelet Vol. 9.2 fl (6.2-12.0); Monocyte# 0.92 X10^3/uL; Monocyte% 8.3 % (0-10); NRBC Flagged by Analyzer 0 % (0-5); Neutrophil # 8.02 X10^3/uL (2.7-7.7); Neutrophil % 72.2 % (47-70); Platelet Count 243 K/mm3 (150-450); RBC Distribution Width CV 11.7 % (11.6-14.6); RBC Distribution Width SD 39.6 fl (35.1-43.9); Red Blood Count 3.69 M/mm3 (4.2-5.4); White Blood Count 11.1 K/mm3 (4.4-11.0)
[2024-01-05 03:08] LABS: ALB/GLOB Ratio 0.7 RATIO (0.9-2.4); AST(SGOT) 16 U/L (15-37); Alanine Aminotransfer ALT/SGPT 12 U/L (13-56); Albumin, Serum 2.9 g/dL (3.2-5.0); Alkaline Phosphatase 73 U/L (45-117); Anion Gap 8 (5-15); BUN 7 mg/dL (7-18); Calcium,Total 8.9 mg/dL (8.5-10.1); Chloride 106 mmol/L (98-107); Creatinine, Serum 0.54 mg/dL (0.55-1.02); EST Glomerular Filtration Rate 143 mL/min (>60); Est Glom Filt Rate - Afr Amer 173 mL/min (>60); Estimated Creatinine Clearance 168.75 ml/min; Globulin 3.9 g/dL (2.2-4.2); Glucose 96 mg/dL (74-106); Potassium 3.4 mmol/L (3.5-5.1); Protein, Total 6.8 g/dL (6.4-8.2); Sodium Level 137 mmol/L (136-145)
--- NOTE | 2024-01-05 07:50 | OB.TRI.HP_ITS ---
HPI - General General Chief Complaint: left side back pain HPI Narrative ARETHA MARTINEZ, is a 28 F who presents at 31.3 with left lower back pain not relieved by heating pad at home. presented to triage for further evaluation Maternal Data Information ONDINA Calculator Estimated Delivery Date Method Current WG Current Estimate 03/05/24 Ultrasound #2 31w 3d Other Estimates 03/09/24 LMP (Certain) 30w 6d 03/02/24 Ultrasound #1 31w 6d PFSH PFSH Medical History Abnormal Pap smear of cervix Seasonal allergies Raynauds disease Non-smoker Acute bacterial conjunctivitis Influenza A Home Medications ?Medication ?Instructions ?Recorded ?Last Taken ?Type vit no.95-ferrous 1 tab PO DAILY 03/02/23 01/04/24 History fumarate 28 mg-folic acid 800 mcg tablet () Allergy/AdvReac Type Severity Reaction Status Date / Time pollen extracts Allergy Unknown Verified 01/05/24 02:06 Family History Mother Hypertension Hypothyroidism Surgical History H/O dilation and curettage History of wisdom tooth extraction (~12/2021) History of appendectomy (~2003) Social History adopted: No household members: spouse current occupational status: employed 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 current occupational exposures/hazards: No pets and animals: Yes pets and animals: dog(s) history of recent travel: Yes ([place]) out of state: Yes out of country: No sexually active: Yes Smoking Status: Never smoker alcohol intake: current alcohol intake frequency: a few times a week details: not while substance use type: does not use well-balanced diet: daily or most days caffeine: No eating out: 1-3 times/week during the past year weight has: remained stable juan daniel/moravian: Adventist seatbelt use: always do you feel safe at home: Yes additional social history: Diabetica- Wix History 2 Elective abortions Hx Para 0 Spontaneous abortions 1 Hx # Term Pregnancies Ectopic pregnancies Hx # Pregnancies Multiple births # of living children 0 Past Pregnancies Del. Date Name GA/Weeks Outcome Route Bth Weight Gen Labor Lgth Anesthesia Del Joan Provider FOB 03/05/23 miscarriage 13 spontaneous Delivery Date: 03/05/23 Last Updated by: Gini Schuler D&Yessica Visit Details Expected Delivery Route/Plan Labor Preferences- CB/BF classes: encouraged labor support person: Medardo labor intervention preferences: [] pain management options preferred: epidural cut cord/dad catch: cord : yes PP control planned: discussed discussed possible routes of delivery and associated risks: [] special requests: [] Plans Covid status: discussed Flu vaccine: no Tdap vaccine: [] Rhogam: NA LARC form signed: yes Problem list reviewed and updated with the most current plan of care details and appropriate orders placed. Relevant counseling for the gestational age provided. Continue routine care and follow up unless otherwise noted in visit notes/problem list details OB Flowsheet Initial Weight: Not Recorded Date -?-?-?-?-?-?-?-?-?-?-?-?- EGA Weight BP Urine Prot -?-?-?-?-?-?-?-?-?-?-?-?- Glucose FHR FuHt Pres Dilation -?-?-?-?-?-?-?-?-?-?-?-?- Effaced St Visit Note 08/02/23 -?-?-?-?-?-?-?-?-?-?-?-?- 9w 1d 158 lb 8 oz 126/80 -?-?-?-?-?-?-?-?-?-?-?-?- 175 -?-?-?-?-?-?-?-?-?-?-?-?- KW-CRL cons with previous early US. ONDINA changed to reflect early US. Discussed NIPT and declines at this time. 08/28/23 -?-?-?-?-?-?-?-?-?-?-?-?- 12w 6d 158 lb 8 oz 105/76 Nega tive -?-?-?-?-?-?-?-?-?-?-?-?- Negative 163 -?-?-?-?-?-?-?-?-?-?-?-?- KW-work in for v aginal discharge started last week on and off. No itching or odor. Back office BV-neg. genital culture sent. suspect normal vaginal discharge. KW-work in for vaginal disch arge started last week on and off. No itching or odor. Back office BV-neg. genital culture sent. suspect normal vaginal discharge. formal US ordered and discussed AFP in a couple weeks. would like to come [place] in 2 weeks for FH check because of hx of 13 week demise. 09/12/23 -?-?-?-?-?-?-?-?-?-?-?-?- 15w 0d 159 lb 4 oz 135/80 Nega tive -?-?-?-?-?-?-?-?-?-?-?-?- Negative 148 -?-?-?-?-?-?-?-?-?-?-?-?- MH-No VB. Nausea improved. FHT easily found, very anxious as had loss at 14 wk. Doing well 09/21/23 -?-?-?-?-?-?-?-?-?-?-?-?- 16w 2d 164 lb 124/76 Negative -?-?-?-?-?-?-?-?-?-?-?-?- Negative 146 -?-?-?-?-?-?-?-?-?-?-?-?- LC- no vb having pelvic pressure, intermittently. no changes in urination increased vaginal d/c. urine culture, genital culture obtained. cervix closed visually. +green d/c with curdy white. to start diflucan. 09/27/23 -?-?-?-?-?-?-?-?-?-?-?-?- 17w 1d 162 lb 138/77 Negative -?-?-?-?-?-?-?-?-?-?-?-?- Negative 153 -?-?-?-?-?-?-?-?-?-?-?-?- LC- no vb/crampi ng. desired FHR check today for reassurance. 10/04/23 -?-?-?-?-?-?-?-?-?-?-?-?- 18w 1d 164 lb 9.6 oz 115/75 Ne gative -?-?-?-?-?-?-?-?-?-?-?-?- Negative 155 -?-?-?-?-?-?-?-?-?-?-?-?- LC- no vb/crampi ng. occ flutters. LC- no vb/cramping. occ flut ters.urine neg for pro/glucose 10/11/23 -?-?-?-?-?-?-?-?-?-?-?-?- 19w 1d 164 lb 109/77 -?-?-?-?-?-?-?-?-?-?-?-?- 150 -?-?-?-?-?-?-?-?-?-?-?-?- SM- no vb crampi ng 11/05/23 -?-?-?-?-?-?-?-?-?-?-?-?- 22w 5d 169 lb 113/71 Negative -?-?--?-?-?-?-?-?-?-?-?-?- Negative 147 -?-?-?-?-?-?-?-?-?-?-?-?- JV- last growth was normal. uterine synechia is right upper part of uterus and not touching the baby's limbs. continue monthly growth scans with MFM. 12/03/23 -?-?-?-?-?-?-?-?-?-?-?-?- 26w 5d 171 lb 4 oz 110/66 Nega tive -?-?-?-?-?-?-?-?-?-?-?-?- Negative 142 26 -?-?-?-?-?-?-?-?-?-?-?-?- MH-NO VB, LOF. G ood FM. Has MFM US 11/28 and tech said cx suboptimal. Told her may not have been able to visualized. Will call her with report. Gavin. Nl 28 wk labs. 12/11/23 -?-?-?-?-?-?-?-?-?-?-?-?- 27w 6d 171 lb 6 oz 118/75 Nega tive -?-?-?-?-?-?-?-?-?-?-?-?- Negative 130 26 0 -?-?-?-?-?-?-?-?-?-?-?-?- KW- work in for cramping. no vb/lof. good fm. 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 significant decrease in ctx after resting/hydrating. cervix closed on exam. negative urine dip. 12/27/23 -?-?-?-?-?-?-?-?-?-?-?-?- 30w 1d 175 lb 113/74 Negative -?-?-?-?-?-?-?-?-?-?--?-?- Negative 135 29 -?-?-?-?-?-?-?-?-?-?-?-?- kw- no vb/lof/ct x. good fm. questions sex. NIPT offered and will consider. no concerns NST FHR Rate Baby A Baseline: 130 Variability:: Moderate Accelerations:: 15 x 15 Decelerations:: None NST Reactive:: Yes Uterine Activity:: irregular Assessment & Plan (1) contractions: COMMENT: no cervical change, no further pain or discomfort. PLAN: Patient presents for triage evaluation secondary to left sided pain, negative urine, blood work normal. 500LR bolus given with lessening pain and contractions spaced with no discomfort. no cervical change. FHT: Moderate variability reactive no decelerations category I tracing [place]: irregular Contractions Assessment and plan: Reactive NST, reassuring maternal and status patient discharged to home to follow-up in office. See problem list details for additional plan information. Charges/Coding Procedures Urinary/Genital [id number]: [id number] non-stress test Interp
== END 2024-01-05 05:55 | disposition home or self-care (01) ==
LOC: WPOUT 01:40 → WP 01:41
PROVIDERS: PCP Family Medicine; Referring Provider Registered Nurse; Visit Provider Registered Nurse
DX: O47.03 False labor before 37 completed weeks of gestation, third trimester (principal); O99.891 Other specified diseases and conditions complicating pregnancy; M54.50 Low back pain, unspecified; Z3A.31 31 weeks gestation of pregnancy
CPT/HCPCS: 96360; 36415; 59025; 59050; 80053; 81001; 85025; 99221; J7120; G0378

== ENCOUNTER 2024-01-16 14:45 | Outpatient (CLI) | payer OTHER, SELFPAY ==
[2024-01-16 15:12] VITALS: BP 121/71; PULSE 91; O2SAT 99
[2024-01-16 15:13] VITALS: RESP 16; TEMP 36.8; O2SAT 99
[2024-01-16 15:32] LABS: Mucous, Urine 0 SEEN /hpf (<or=2+); Red Blood Cells-Urine 0 SEEN /hpf (0-5)
[2024-01-16 15:36] LABS: Color, Urine Straw (Yellow); Glucose, Dipstick Normal (Normal); Ketone-Dipstick Negative (Negative); Leukocyte Esterase-Dipstick Negative /ul (Negative); Nitrite-Dipstick Negative (Negative); Occult Blood-Urine Negative /ul (Negative); Protein-Dipstick Negative (Negative); Specific Gravity, Urine 1.005 (1.002-1.030); Urine Bilirubin Dipstick Negative (Negative); Urine Clarity Sl. Cloudy (Clear); Urine Urobilinogen Normal (Normal)
[2024-01-16 15:45] LABS: Squamous Epithelial Cells - UA 0-5 SEEN /hpf (5-10)
[2024-01-16 15:46] LABS: White Blood Cells 0-5 SEEN /hpf (0-5)
[2024-01-16 15:48] LABS: Bacteria 2+ /hpf (None Seen)
[2024-01-16 15:58] LABS: ROM Internal Control Test YES-OK TO RESULT pt. (Internal QC); ROM Patient Test Negative (Negative)
[2024-01-16 15:59] LABS: Record Kit Lot#, ROM+ K1866
[2024-01-16 16:25] VITALS: BMI 27.6
--- NOTE | 2024-01-16 17:29 | OB.TRI.PN_ITS ---
Progress Notes Date of Service: 01/16/24 Progress Note: Patient presents for triage evaluation secondary to vaginal discharge FHT: 135 Moderate variability reactive no decelerations category I tracing Lyles: irregular Contractions Assessment and plan: Rom neg, Urine culture sent, Reactive NST, reassuring maternal and status patient discharged to home to follow-up in the office. See problem list details for additional plan information. Laboratory Studies: Laboratory Tests 01/16/24 Range/Units 15:15 Urine Color Straw (Yellow) Urine Clarity Sl. Cloudy (Clear) Urine pH 7.0 (5.0 - 8.0) Ur Specific [place] 1.005 (1.002-1.030) Urine Protein Negative (Negative) mg/dl Urine Glucose (UA) Normal (Normal) mg/dl Urine Ketones Negative (Negative) mg/dl Urine Occult Blood Negative (Negative) /ul Urine Nitrite Negative (Negative) Urine Bilirubin Negative (Negative) mg/dL Urine Urobilinogen Normal (Normal) mg/dl Ur Leukocyte Esterase Negative (Negative) /ul Urine RBC 0 SEEN (0-5) /hpf Urine WBC 0-5 SEEN (0-5) /hpf Ur Squamous Epith Cells 0-5 SEEN (5-10) /hpf Urine Bacteria 2+ (None Seen) /hpf Urine Mucus 0 SEEN (<or=2+) /hpf Vag Amniotic Fld Detect Negative (Negative) Charges/Coding Multi Select Codes Urinary/Genital Urinary/Genital CPT Codes: 71505-15 non-stress test Interp Assessment & Plan (1) contractions: COMMENT: no cervical change, no further pain or discomfort. (2) Uterine synechiae: COMMENT: right lateral synechiae. no involvement. Growth US q4 weeks. 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 declines genetic & carrier testing. Declines AFP (8) Vaginal discharge during : COMMENT: rom neg
== END 2024-01-16 16:25 | disposition home or self-care (01) ==
LOC: WPOUT 14:54 → WP 14:54
PROVIDERS: Advanced Practice Midwife; PCP Family Medicine; Referring Provider Obstetrics & Gynecology; Visit Provider Obstetrics & Gynecology
DX: O99.891 Other specified diseases and conditions complicating pregnancy (principal); O47.03 False labor before 37 completed weeks of gestation, third trimester; Z3A.32 32 weeks gestation of pregnancy; N89.8 Other specified noninflammatory disorders of vagina; O34.03 Maternal care for unspecified congenital malformation of uterus, third trimester; Q51.3 Bicornate uterus; O99.413 Diseases of the circulatory system complicating pregnancy, third trimester; I73.00 Raynaud's syndrome without gangrene; N85.6 Intrauterine synechiae
CPT/HCPCS: 59025; 59050; 81001; 84112; 99212; 99221; G0378; G0463

== ENCOUNTER → 2024-02-11 | Outpatient (CLI) | payer OTHER, SELFPAY | END | disposition home or self-care (01) | LOC: LABSPEC 12:11 | PROVIDERS: PCP Family Medicine; Referring Provider Obstetrics & Gynecology; Visit Provider Obstetrics & Gynecology | DX: O09.93 Supervision of high risk pregnancy, unspecified, third trimester (principal); Z3A.00 Weeks of gestation of pregnancy not specified | CPT/HCPCS: 87081 ==

== ENCOUNTER 2024-02-12 18:14 | Outpatient (CLI) | payer OTHER, SELFPAY ==
[2024-02-12 18:23] VITALS: BP 120/72; PULSE 102
[2024-02-12 18:24] VITALS: PULSE 99; TEMP 36.8; O2SAT 98; O2SAT 99
[2024-02-12 18:29] VITALS: PULSE 94; O2SAT 98
--- NOTE | 2024-02-12 18:35 | OB.TRI.HP_ITS ---
HPI - General HPI Narrative KIM MARTINEZ, is a 28 y/o @ 36 weeks 6 days who presents with irregular contractions. She was 1-2 cm in the office today and breech. Maternal Data Information ONDINA Calculator Estimated Delivery Date Method Current WG Current Estimate 03/05/24 Ultrasound #2 36w 6d Other Estimates 03/09/24 LMP (Certain) 36w 2d 03/02/24 Ultrasound #1 37w 2d PFSH PFSH Medical History Abnormal Pap smear of cervix Seasonal allergies Raynauds disease Non-smoker Acute bacterial conjunctivitis Influenza A Home Medications ?Medication ?Instructions ?Recorded ?Last Taken ?Type vit no.95-ferrous 1 tab PO DAILY 03/02/23 01/04/24 History fumarate 28 mg-folic acid 800 mcg tablet () nifedipine 10 mg capsule 10 mg PO Q6H PRN contractions #30 01/14/24 Unknown Rx caps Allergy/AdvReac Type Severity Reaction Status Date / Time pollen extracts Allergy Unknown Verified 02/11/24 09:14 Family History Mother Hypertension Hypothyroidism Surgical History H/O dilation and curettage History of wisdom tooth extraction (~12/2021) History of appendectomy (~2003) Social History adopted: No household members: spouse current occupational status: employed 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 current occupational exposures/hazards: No pets and animals: Yes pets and animals: dog(s) history of recent travel: Yes ([place]) out of state: Yes out of country: No sexually active: Yes Smoking Status: Never smoker alcohol intake: current alcohol intake frequency: a few times a week details: not while substance use type: does not use well-balanced diet: daily or most days caffeine: No eating out: 1-3 times/week during the past year weight has: remained stable juan daniel/faith: [employer]ist seatbelt use: always do you feel safe at home: Yes additional social history: Medardo- Reclamador History 2 Elective abortions Hx Para 0 Spontaneous abortions 1 Hx # Term Pregnancies Ectopic pregnancies Hx # Pregnancies Multiple births # of living children 0 Past Pregnancies Del. Date Name GA/Weeks Outcome Route Bth Weight Infant Gen Labor Lgth Anesthesia Del Joshuaatbalwinder Provider FOB 03/05/23 miscarriage 13 spontaneous Delivery Date: 03/05/23 Last Updated by: Gini Schuler D&C Visit Details Expected Delivery Route/Plan Labor Preferences- CB/BF classes: encouraged labor support person: Medardo labor intervention preferences: [] pain management options preferred: epidural cut cord/dad catch: cord : yes PP control planned: discussed discussed possible routes of delivery and associated risks: [] special requests: [] Plans Covid status: discussed Flu vaccine: no Tdap vaccine: [] Rhogam: NA LARC form signed: yes Problem list reviewed and updated with the most current plan of care details and appropriate orders placed. Relevant counseling for the gestational age provided. Continue routine care and follow up unless otherwise noted in visit notes/problem list details OB Flowsheet Initial Weight: Not Recorded Date -?-?-?-?-?-?-?-?-?-?-?-?- EGA Weight BP Urine Prot -?-?-?-?-?-?-?-?-?-?-?-?- Glucose FHR FuHt Pres Dilation -?-?-?-?-?-?-?-?-?-?-?-?- Effaced St Visit Note 08/02/23 -?-?-?-?-?-?-?-?-?-?-?-?- 9w 1d 158 lb 8 oz 126/80 -?-?-?-?-?-?-?-?-?-?-?-?- 175 -?-?-?-?-?-?-?-?-?-?-?-?- KW-CRL cons with previous early US. ONDINA changed to reflect early US. Discussed NIPT and declines at this time. 08/28/23 -?-?-?-?-?-?-?-?-?-?-?-?- 12w 6d 158 lb 8 oz 105/76 Nega tive -?-?-?-?-?-?-?-?-?-?-?-?- Negative 163 -?-?-?-?-?-?-?-?-?-?-?-?- KW-work in for v aginal discharge started last week on and off. No itching or odor. Back office BV-neg. genital culture sent. suspect normal vaginal discharge. KW-work in for vaginal disch arge started last week on and off. No itching or odor. Back office BV-neg. genital culture sent. suspect normal vaginal discharge. formal US ordered and discussed AFP in a couple weeks. would like to come veliz in 2 weeks for FH check because of hx of 13 week demise. 09/12/23 -?-?--?-?-?-?-?-?-?-?-?-?- 15w 0d 159 lb 4 oz 135/80 Nega tive -?-?-?-?-?-?-?-?-?-?-?-?- Negative 148 -?-?-?-?-?-?-?-?-?-?-?-?- MH-No VB. Nausea improved. FHT easily found, very anxious as had loss at 14 wk. Doing well 09/21/23 -?-?-?-?-?-?-?-?-?-?-?-?- 16w 2d 164 lb 124/76 Negative -?-?-?-?-?-?-?-?-?-?-?-?- Negative 146 -?-?-?-?-?-?-?-?-?-?-?-?- LC- no vb having pelvic pressure, intermittently. no changes in urination increased vaginal d/c. urine culture, genital culture obtained. cervix closed visually. +green d/c with curdy white. to start diflucan. 09/27/23 -?-?-?-?-?-?-?-?-?-?-?-?- 17w 1d 162 lb 138/77 Negative -?-?-?-?-?-?-?-?--?-?-?-?- Negative 153 -?-?-?-?-?-?-?-?-?-?-?-?- LC- no vb/crampi ng. desired FHR check today for reassurance. 10/04/23 -?-?-?-?-?-?-?-?-?-?-?-?- 18w 1d 164 lb 9.6 oz 115/75 Ne gative -?-?-?-?-?-?-?-?-?-?-?-?- Negative 155 -?-?-?-?-?-?-?-?-?-?-?-?- LC- no vb/crampi ng. occ flutters. LC- no vb/cramping. occ flut ters.urine neg for pro/glucose 10/11/23 -?-?-?-?-?-?-?-?-?-?-?-?- 19w 1d 164 lb 109/77 -?-?-?-?-?-?-?-?-?-?-?-?- 150 -?-?-?-?-?-?-?-?-?-?-?-?- SM- no vb crampi ng 11/05/23 -?-?-?-?-?-?-?-?-?-?-?-?- 22w 5d 169 lb 113/71 Negative -?-?-?-?-?-?-?-?-?-?-?-?- Negative 147 -?-?-?-?-?-?-?-?-?-?-?-?- JV- last growth was normal. uterine synechia is right upper part of uterus and not touching the baby's limbs. continue monthly growth scans with [facility]. 12/03/23 -?-?-?-?-?-?-?-?-?-?-?-?- 26w 5d 171 lb 4 oz 110/66 Nega tive -?-?-?-?-?-?-?-?-?-?-?-?- Negative 142 26 -?-?-?-?-?-?-?-?-?-?-?-?- MH-NO VB, LOF. G ood FM. Has MFM US / and tech said cx suboptimal. Told her may not have been able to visualized. Will call her with report. Charo. Nl 28 wk labs. 12/11/23 -?-?-?-?-?-?-?-?-?-?-?-?- 27w 6d 171 lb 6 oz 118/75 Nega tive -?-?-?-?-?-?-?-?-?-?-?-?- Negative 130 26 0 -?-?-?-?-?-?-?-?-?-?-?--?- KW- work in for cramping. no vb/lof. good fm. 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 significant decrease in ctx after resting/hydrating. cervix closed on exam. negative urine dip. 12/27/23 -?-?-?-?-?-?-?-?-?-?-?-?- 30w 1d 175 lb 113/74 Negative -?-?-?-?-?-?-?-?-?-?-?-?- Negative 135 29 -?-?-?-?-?-?-?-?-?-?-?-?- kw- no vb/lof/ct x. good fm. questions sex. NIPT offered and will consider. no concerns 01/14/24 -?-?-?-?-?-?-?-?--?-?-?-?- 32w 5d 177 lb 8 oz 112/78 -?-?-?-?-?-?-?-?-?-?-?-?- 140 32 1 -?-?-?-?-?-?-?-?-?-?-?-?- 0 JV- no l of, vaginal bleeding, or dec fm. still feeling cramping often. no cerivcal change x 2 weeks.will start with procardia 10mg as needed. 02/05/24 -?-?-?-?-?-?-?-?-?-?-?-?- 35w 6d 180 lb 4 oz 116/72 Nega tive -?-?-?-?-?-?-?-?-?-?-?-?- Negative 135 35 Breech -?-?-?-?-?-?-?-?-?-?-?-?- MH-No VB, LOF or reg CTX. Good FM. Baby still breech. Will discuss with JV. 02/11/24 -?-?-?-?-?-?-?-?-?-?-?-?- 36w 5d 180 lb 4 oz 103/68 Nega tive -?-?-?-?-?-?-?-?-?-?-?-?- Negative 145 36 Breech 2 -?-?-?-?-?-?-?-?--?-?-?-?- 70 -2 JV- still breech and declines version. planning 39 week primary section but is already dilated. has rpt scan with mfm in a week. light activity recommend and close follow up. scheduling primary section. 02/12/24 -?-?-?-?-?-?-?-?-?-?-?-?- 36w 6d 181 lb 130/79 -?-?-?-?-?-?-?-?-?-?-?-?- 143 36 Breech 2 -?-?-?-?-?-?-?-?-?-?-?-?- 70 -2 KW- no vb/ lof. ctx about 3-10 minutes for last hour. good fm. Labor precautions given ROS Constitutional Constitutional: Reports systems reviewed and no addt'l complaints, except as documented Gastrointestinal Gastrointestinal: Denies bloating, constipation, cramping, diarrhea, nausea or vomiting Genitourinary Genitourinary: Reports other Details: Denies vaginal odor, vaginal bleeding, or vaginal discharge ; Denies difficulty urinating or flank pain Physical Exam Narrative bedside ultrasound confirms breech presentation. FRANTZ is 7.5 cm A uterine synechiae is noted adjacent to the head on the right. Const alert, oriented x3 and no apparent distress HEENT normocephalic Resp normal respiratory effort and normal air movement no CVA tenderness Manual OB Exam: other cs is 1.5/60/-2 Extremity normal to inspection General Extremity: edema bilateral (trace ) NST FHR Rate Baby A Baseline: 140 Variability:: Moderate Accelerations:: 15 x 15 Decelerations:: None NST Reactive:: Yes FHR Category:: Category I Assessment & Plan (1) Breech position of fetus: COMMENT: Confirm US. Wants PCS. Sees JV 02/10 to discuss (2) contractions: COMMENT: no cervical change, no further pain or discomfort. (3) Uterine synechiae: COMMENT: right lateral synechiae. no involvement. Growth US q4 weeks. 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 declines genetic & carrier testing. Declines AFP PLAN: Plan plan to watch for 2 hours and re-check cervix. if unchanged will discharge to home when offered tylenol for discomfort the patient declined stating that she was not in pain. Charges/Coding Multi Select Codes Visit Charges Office Visit/Consults: 46536 OV L3 Est 20min Urinary/Genital Urinary/Genital CPT Codes: 83258-50 non-stress test Interp
[2024-02-12 19:30] VITALS: BMI 28.3
[2024-02-12 20:23] VITALS: BP 109/73; PULSE 88; RESP 16; TEMP 36.9; O2SAT 98
== END 2024-02-12 21:05 | disposition home or self-care (01) ==
LOC: WPOUT 18:17 → WP 18:19
PROVIDERS: PCP Family Medicine; Referring Provider Obstetrics & Gynecology; Visit Provider Obstetrics & Gynecology
DX: O32.1XX0 Maternal care for breech presentation, not applicable or unspecified (principal); O47.03 False labor before 37 completed weeks of gestation, third trimester; O34.593 Maternal care for other abnormalities of gravid uterus, third trimester; N85.6 Intrauterine synechiae; O99.413 Diseases of the circulatory system complicating pregnancy, third trimester; I73.00 Raynaud's syndrome without gangrene; Q51.3 Bicornate uterus; Z3A.36 36 weeks gestation of pregnancy; O09.93 Supervision of high risk pregnancy, unspecified, third trimester; O99.893 Other specified diseases and conditions complicating puerperium
CPT/HCPCS: 59025; 59050; 99221; G0378

== ENCOUNTER 2024-02-19 11:47 | Inpatient (IN) | payer OTHER, SELFPAY ==
[2024-02-19] VITALS (14 sets, daily range): BP systolic 91–120; BP diastolic 51–84; PULSE 80–102; RESP 14–24; TEMP 36.1–36.6; O2SAT 96–100; BMI 28.5
[2024-02-19] MEDS: Lactated Ringers 1,000 ML 999 ML IV (12:25)
--- NOTE | 2024-02-19 12:40 | HP.PCM.OB_ITS ---
HPI - General General Date of Admission: 02/19/24 HPI Narrative ARETHA MARTINEZ, is a 28 y/o G1 @ 37 weeks 6 days who presents to L&D with leaking fluid and breech presentation. She last ate breakfast at 8:30. She states that she feels comfortable without contractions Maternal Data Information ONDINA Calculator Estimated Delivery Date Method Current WG Current Estimate 03/05/24 Ultrasound #2 37w 6d Other Estimates 03/09/24 LMP (Certain) 37w 2d 03/02/24 Ultrasound #1 38w 2d PFSH PFSH Medical History Abnormal Pap smear of cervix Seasonal allergies Raynauds disease Non-smoker Acute bacterial conjunctivitis Influenza A Home Medications ?Medication ?Instructions ?Recorded ?Last Taken ?Type vit no.95-ferrous 1 tab PO DAILY 03/02/23 01/04/24 History fumarate 28 mg-folic acid 800 mcg tablet () nifedipine 10 mg capsule 10 mg PO Q6H PRN contractions #30 01/14/24 Unknown Rx caps vit no.133-ferrous tab PO 02/12/24 Unknown History fumarate 28 mg-folic acid 800 mcg tablet () Allergy/AdvReac Type Severity Reaction Status Date / Time pollen extracts Allergy Unknown Verified 02/19/24 12:10 Family History Mother Hypertension Hypothyroidism Surgical History H/O dilation and curettage History of wisdom tooth extraction (~12/2021) History of appendectomy (~2003) Social History adopted: No household members: spouse current occupational status: employed 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 current occupational exposures/hazards: No pets and animals: Yes pets and animals: dog(s) history of recent travel: Yes ([place]) out of state: Yes out of country: No sexually active: Yes Smoking Status: Never smoker alcohol intake: current alcohol intake frequency: a few times a week details: not while substance use type: does not use well-balanced diet: daily or most days caffeine: No eating out: 1-3 times/week during the past year weight has: remained stable juan daniel/faith: Religion seatbelt use: always do you feel safe at home: Yes additional social history: [employer] History 2 Elective abortions Hx Para 0 Spontaneous abortions 1 Hx # Term Pregnancies Ectopic pregnancies Hx # Pregnancies Multiple births # of living children 0 Past Pregnancies Del. Date Name GA/Weeks Outcome Route Bth Weight Gen Labor Lgth Anesthesia Del Locatn Provider FOB 03/05/23 miscarriage 13 spontaneous Delivery Date: 03/05/23 Last Updated by: Gini Schuler D&C Visit Details Expected Delivery Route/Plan Labor Preferences- CB/BF classes: encouraged labor support person: [facility] labor intervention preferences: [] pain management options preferred: epidural cut cord/dad catch: cord : yes PP control planned: discussed discussed possible routes of delivery and associated risks: [] special requests: [] Plans Covid status: discussed Flu vaccine: no Tdap vaccine: [] Rhogam: NA LARC form signed: yes Problem list reviewed and updated with the most current plan of care details and appropriate orders placed. Relevant counseling for the gestational age provided. Continue routine care and follow up unless otherwise noted in visit notes/problem list details OB Flowsheet Initial Weight: Not Recorded Date -?-?-?-?-?-?-?-?-?--?-?-?- EGA Weight BP Urine Prot -?-?-?-?-?-?-?-?-?-?-?-?- Glucose FHR FuHt Pres Dilation -?-?-?-?-?-?-?-?-?-?-?-?- Effaced St Visit Note 08/02/23 -?-?-?-?-?-?-?-?-?-?-?-?- 9w 1d 158 lb 8 oz 126/80 -?-?-?-?-?-?-?-?-?-?-?-?- 175 -?-?-?-?-?-?-?-?-?-?-?-?- KW-CRL cons with previous early US. ONDINA changed to reflect early US. Discussed NIPT and declines at this time. 08/28/23 -?-?-?-?-?-?-?-?-?-?-?-?- 12w 6d 158 lb 8 oz 105/76 Nega tive -?-?-?-?-?-?-?-?-?-?-?-?- Negative 163 -?-?-?-?-?-?-?-?-?-?-?-?- KW-work in for v aginal discharge started last week on and off. No itching or odor. Back office BV-neg. genital culture sent. suspect normal vaginal discharge. KW-work in for vaginal disch arge started last week on and off. No itching or odor. Back office BV-neg. genital culture sent. suspect normal vaginal discharge. formal US ordered and discussed AFP in a couple weeks. would like to come vel[place] in 2 weeks for FH check because of hx of 13 week demise. 09/12/23 -?-?-?-?-?-?-?-?-?-?-?-?- 15w 0d 159 lb 4 oz 135/80 Nega tive -?-?-?-?-?-?-?-?-?-?-?-?- Negative 148 -?-?-?-?-?-?-?-?-?-?-?-?- MH-No VB. Nausea improved. FHT easily found, very anxious as had loss at 14 wk. Doing well 09/21/23 -?-?-?-?-?-?-?-?-?-?-?-?- 16w 2d 164 lb 124/76 Negative -?-?-?-?-?-?-?-?-?-?-?-?- Negative 146 -?-?-?-?-?-?-?-?-?-?-?-?- LC- no vb having pelvic pressure, intermittently. no changes in urination increased vaginal d/c. urine culture, genital culture obtained. cervix closed visually. +green d/c with curdy white. to start diflucan. 09/27/23 -?-?-?-?-?--?-?-?-?-?-?-?- 17w 1d 162 lb 138/77 Negative -?-?-?-?-?-?-?-?-?-?-?-?- Negative 153 -?-?-?-?-?-?-?-?-?-?-?-?- LC- no vb/crampi ng. desired FHR check today for reassurance. 10/04/23 -?-?-?-?-?-?-?-?-?-?-?-?- 18w 1d 164 lb 9.6 oz 115/75 Ne gative -?-?-?-?-?-?-?-?-?-?-?-?- Negative 155 -?-?-?-?-?-?-?-?-?-?-?-?- LC- no vb/crampi ng. occ flutters. LC- no vb/cramping. occ flut ters.urine neg for pro/glucose 10/11/23 -?-?-?-?-?-?-?-?-?-?-?-?- 19w 1d 164 lb 109/77 -?-?-?-?-?-?-?-?-?-?-?-?- 150 -?-?-?-?-?-?-?-?-?-?-?-?- SM- no vb crampi ng 11/05/23 -?-?-?-?-?-?-?-?-?-?-?-?- 22w 5d 169 lb 113/71 Negative -?-?-?-?-?-?-?-?-?-?-?-?- Negative 147 -?-?-?-?-?-?-?-?-?-?-?-?- JV- last growth was normal. uterine synechia is right upper part of uterus and not touching the baby's limbs. continue monthly growth scans with MFM. 12/03/23 -?-?-?-?-?-?-?-?-?-?-?-?- 26w 5d 171 lb 4 oz 110/66 Nega tive -?-?-?-?-?-?-?-?-?-?-?-?- Negative 142 26 -?-?-?-?-?-?-?-?-?-?-?-?- MH-NO VB, LOF. G ood FM. Has MFM US / and tech said cx suboptimal. Told her may not have been able to visualized. Will call her with report. Charo. 28 wk labs. 12/11/23 -?-?-?-?-?-?-?-?-?-?-?-?- 27w 6d 171 lb 6 oz 118/75 Nega tive -?--?-?-?-?-?-?-?-?-?-?-?- Negative 130 26 0 -?-?-?-?-?-?-?-?-?-?-?-?- KW- work in for cramping. no vb/lof. good fm. 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 significant decrease in ctx after resting/hydrating. cervix closed on exam. negative urine dip. 12/27/23 -?-?-?-?-?-?-?-?-?-?-?-?- 30w 1d 175 lb 113/74 Negative -?-?-?-?-?-?-?-?-?-?-?-?- Negative 135 29 -?-?-?-?-?-?-?-?-?-?-?-?- kw- no vb/lof/ct x. good fm. questions sex. NIPT offered and will consider. no concerns 01/14/24 -?-?-?-?-?-?-?-?-?-?-?-?- 32w 5d 177 lb 8 oz 112/78 -?-?-?-?-?-?-?-?-?-?-?-?- 140 32 1 -?-?-?-?-?-?-?-?-?-?-?-?- 0 JV- no l of, vaginal bleeding, or dec fm. still feeling cramping often. no cerivcal change x 2 weeks.will start with procardia 10mg as needed. 02/05/24 -?-?-?-?-?-?-?-?-?-?-?-?- 35w 6d 180 lb 4 oz 116/72 Nega tive -?-?-?-?-?-?-?-?-?-?-?-?- Negative 135 35 Breech -?-?-?-?-?-?-?-?-?-?-?-?- MH-No VB, LOF or reg CTX. Good FM. Baby still breech. Will discuss with JV. 02/11/24 -?-?-?-?-?-?-?-?-?-?-?-?- 36w 5d 180 lb 4 oz 103/68 Nega tive -?-?-?-?-?--?-?-?-?-?-?-?- Negative 145 36 Breech 2 -?-?-?-?-?-?-?-?-?-?-?-?- 70 -2 JV- still breech and declines version. planning 39 week primary section but is already dilated. has rpt scan with mfm in a week. light activity recommend and close follow up. scheduling primary section. 02/12/24 -?-?-?-?-?-?-?-?-?-?-?-?- 36w 6d 181 lb 130/79 -?-?-?-?-?-?-?-?-?-?-?-?- 143 36 Breech 2 -?-?-?-?-?-?-?-?-?-?-?-?- 70 -2 KW- no vb/ lof. ctx about 3-10 minutes for last hour. good fm. Labor precautions given 02/19/24 -?-?-?-?-?-?-?-?-?-?-?-?- 37w 6d 183 lb 4 oz 122/87 Nega tive -?-?-?-?-?-?-?-?-?-?-?-?- Negative 140 38 Cephalic 2 -?-?--?-?-?-?-?-?-?-?-?-?- 70 -2 SM- co que stionable lof for the last few days, seen in triage last week, ROS Constitutional Constitutional: Denies change in weight, fatigue, fever(s), headache(s), poor appetite or weakness Eyes Eyes: Denies blurry vision, change in vision, seeing flashes or spots in vision ENT HEENT: Denies dizziness, headache(s), loss taste/smell or sore throat Cardiovascular Cardiovascular: Denies chest pain, dizziness, dyspnea, irregular heart rhythm, leg edema, palpitations, rapid heart rate or vomiting Respiratory/Chest Respiratory/Chest: Denies chest tightness, cough, dyspnea or breast pain Gastrointestinal Gastrointestinal: Denies abdominal pain, anorexia, constipation, cramping, diarrhea, hemorrhoids, vomiting or weight changes Genitourinary Genitourinary: Denies dysuria, flank pain, genital lesions, genital pain, urinary frequency or urinary urgency Musculoskeletal Musculoskeletal: Denies back pain, difficulty walking, joint pain, limited range of motion, muscle cramps or numbness Integumentary Integumentary: Denies lesions or unusual bruising Neurologic Neurologic: Denies abnormal movements, abnormal speech, dizziness, numbness, seizure-like activity or syncope Psychiatric Psychiatric: Denies anxiety, behavioral changes, change in appetite, change in libido, cognitive impairment, confusion, depression, difficulty concentrating, hallucinations or suicidal thoughts Endocrine Endocrinology: Denies excessive sweating, polydipsia or polyuria Hematologic/Lymphatic Hematologic/Lymphatic: Denies easy bleeding, easy bruising or lymphadenopathy Allergic/Immunologic Allergic/Immunologic: Denies itchy eyes, lip swelling, seasonal rhinorrhea, rhinitis, throat swelling, tongue swelling, eczemia, wheezing or asthma Vital Signs Vital Signs Vital Signs: Weight Weight: 182 lb 5.156 oz Body Mass Index (BMI) 28.5 Physical Exam Const alert, oriented x3, no apparent distress and healthy appearing General Appearance: cooperative; Negative for anxious HEENT normocephalic Face and Sinus: normal facial exam Eyes EOMs intact bilaterally and no scleral icterus General Eye: normal appearance of both eyes Neck full ROM and supple Lymph Lymphatic: no lymphadenopathy noted Chest Chest: abnormal inspection of the chest Resp normal respiratory effort Effort and Inspection: able to speak in complete sentences Cardio regular rate GI soft to palpation and non-tender Inspection: gravid Palpation: soft; Negative for tender external exam normal Amniotic Fluid: ROM+plus Back/Spine no CVA tenderness Extremity normal to inspection, full ROM and no clubbing, cyanosis or edema General Extremity: Negative for calf tenderness or edema Skin Lesions: no lesions Rashes: no rashes Psych mental status grossly normal Labs Labs Labs: Blood Type O POSITIVE Antibody Screen NEGATIVE Hct 34.2 % (37-47) L Hgb 11.4 g/dL (12.0-15.0) L Obstetrics Ultrasound Syphilis Total Ab Non-reactive VZV IgG Antibody 800 index (Immune >165) Rubella IgG Antibody Reactive (Nonreactive) Hep Bs Antigen Non-Reactive (Nonreactive) Hepatitis C Antibody Non-Reactive (Nonreactive) Chlamydia DNA (SEPIDEH) Negative (Negative) N.gonorrhoeae DNA (SEPIDEH) Negative (Negative) HIV 1&2 Antibody Non-Reactive (Nonreactive) Glucose 1 Hr 50 gm 109 mg/dL (70-140) Assessment & Plan (1) Breech position of fetus: COMMENT: Confirm US. Wants PCS. Sees JV 02/10 to discuss (2) Uterine synechiae: COMMENT: right lateral synechiae. no involvement. Growth US q4 weeks. 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 declines genetic & carrier testing. Declines AFP PLAN: Plan After discussing the patient's diagnosis and treatment plan options, patient wishes to proceed with surgical management. I have discussed with the patient the risks, benefits, and alternatives of the procedure which include but are not limited to risks of anesthesia, bleeding, infection, possible damage to bowel, bladder, or surrounding vasculature which could lead to additional surgery to evaluate any complications. Patient agrees to procedure and wishes to proceed with primary section at 2:30 today or sooner as needed for the onset of labor. per Dr. Marcanthony's exam in the office she was only dilated 2 cm and the presenting part was a buttock
[2024-02-19] MEDS: Acetaminophen 500 MG Tablet 1000 MG PO ×2 (12:44→18:38)
[2024-02-19 12:48] LABS: Absolute Lymphocyte Count 1.26 X10^3/uL (0.83-4.51); Absolute Neutrophil Count 8.3 X10^3/uL (2.0-7.7); Basophil# 0.05 X10^3/uL; Basophil% 0.5 % (0-1); Eosinophil# 0.03 X10^3/uL; Eosinophils% 0.3 % (0-5); Hematocrit 36.4 % (37-47); Hemoglobin 12.1 g/dL (12.0-15.0); Lymphocyte # 1.26 X10^3/ul (0.83-4.51); Lymphocyte % 11.6 % (19-41); Mean Corp Hgb Conc 33.2 g/dL (32-36); Mean Corpuscular Hgb 30.6 pg (27.0-32.0); Mean Corpuscular Volume 91.9 fL (81-99); Mean Platelet Vol. 9.4 fl (6.2-12.0); Monocyte# 1.07 X10^3/uL; Monocyte% 9.9 % (0-10); NRBC Flagged by Analyzer 0 % (0-5); Neutrophil # 8.31 X10^3/uL (2.7-7.7); Neutrophil % 76.4 % (47-70); Platelet Count 256 K/mm3 (150-450); RBC Distribution Width CV 11.9 % (11.6-14.6); Red Blood Count 3.96 M/mm3 (4.2-5.4); White Blood Count 10.9 K/mm3 (4.4-11.0)
[2024-02-19] MEDS: Lactated Ringers 1,000 ML 150 ML IV (13:35)
[2024-02-19 13:57] LABS: Syphilis Antibodies Non-reactive
[2024-02-19 14:43] LABS: ROM Internal Control Test YES-OK TO RESULT pt. (Internal QC)
[2024-02-19 14:44] LABS: ROM Patient Test Negative (Negative); Record Kit Lot#, ROM+ K1866
[2024-02-19] MEDS: Sodium Citrate/Citric Acid 30 ML UDC PO (15:13)
[2024-02-19] MEDS: Cefazolin 2 GM in 0.9% Normal Saline (100mL Bag) 100 ML IV (15:35)
[2024-02-19] MEDS: Azithromycin 500 MG in Dextrose 5%-Water (250mL Bag) 250 ML 250 MG IV (15:55)
[2024-02-19] MEDS: Ketorolac 30 MG/ML Syringe IV ×2 (17:09→22:50)
[2024-02-19] MEDS: Oxytocin 15 Units/NS 250ml 15 UNITS/250 ML IV.SOLN 83 UNITS IV (17:20)
--- NOTE | 2024-02-19 17:43 | EX.PCM.OBRPT ---
Assessment & Plan (1) Breech position of fetus: COMMENT: Confirm US. Wants PCS. Sees JV 02/10 to discuss (2) Uterine synechiae: COMMENT: right lateral synechiae. no involvement. Growth US q4 weeks. 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 declines genetic & carrier testing. 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 She was prepped and draped in the normal sterile fashion and was placed in a dorsal supine position with a leftward tilt. Pfannenstiel skin incision was made with a scalpel and carried through to the underlying layers. The fascia was nicked in the midline and extended laterally using Dacosta scissors. The anterior aspect of the fascia was grasped with Skip clamps and the underlying rectus muscles dissected off using the Metzenbaum scissors. The inferior aspect the fascia was also grasped with Skip clamps and the underlying rectus muscle dissected off with the Metzenbaum scissors. The rectus muscles were in the midline. Peritoneum was entered sharply. The uterus was identified and a bladder blade was inserted into the abdomen. Bladder flap was created off the uterus using Metzenbaum scissors. A transverse incision was made with a scalpel and extended laterally manually. The 's buttocks was grasped and delivered with the help of my library services assistant and fundal pressure the was delivered through the uterine incision without difficulty. The mouth and nares were bulb suctioned. After a 30 second delay the cord was clamped and cut. The infant was handed off to the awaiting wheel alignment technician for routine assessment. Placenta was delivered manually without difficulty. The uterus was exteriorized and cleared of all clots and debris. The uterus was noted to be bicornuate with an approximate midway down the length of the uterus, thick septum present. The Incision was closed with an 0 Vicryl suture in a running locked fashion. Second layer of 1-0 monocryl suture was used in imbricating manner to create excellent closure and hemostasis. The uterus was returned to the abdomen. The gutters were cleared of all clots and debris. The peritoneum was closed in a pursestring pattern using a 3-0 Vicryl suture. This muscle was reapproximated with a 3-0 Vicryl. The fascia was closed with an 0-PDS suture. Subcutaneous tissue layer was closed using a plain gut suture. The skin was closed with a 4-0 Monocryl subcuticular stitch. The skin was also sealed with surgical glue. The patient tolerated the procedure well sponge lap and needle counts were correct at each tissue closure plane and the patient is now being brought to the recovery room in stable condition Presentation: Positive for Keny Breech Amniotic Fluid Description: Clear Placental Delivery Description: Manual Removal Placenta Disposition: [facility] Cord Vessel Description: 3 Vessels Cord Entanglement: None Infant A Gender: Male (1 minute): 8 (5 minute): 9 Delayed Cord Clamping: Yes Complications Risks of Surgery Discussed w/Patient: Anesthesia Risks, Infection, Need for Future C-Sections and Injury to surrounding structure(s) including bowel and bladder Multi Select Codes Urinary/Genital Urinary/Genital CPT Codes: 11473 Delivery global pkg
--- NOTE | 2024-02-19 17:51 | DCINST_ITS ---
Discharge Instructions Diet Discharge Diet: No restrictions Activity Discharge Activity: May Not Drive (for 2 weeks or while taking narcotic pain medications.), May Shower and May Take a Tub Bath (in 7 days.) May resume sexual activity in: 4-6 weeks Weight Bearing Status: Full weight bearing Lifting Restrictions: 20 pounds Dressing / Incision Call your doctor if your incision/area has: Continuous Slow Oozing, Sudden Increased Bleeding, Increased Pain/ Swelling, Increased Redness and Foul Smelling Discharge Call your doctor if you observe: Fever of 101 or Higher and Using more than 1 pad per hour Suture Line Care: Avoid Pulling/Pushing and Avoid Pinching/Bending Cleanse incision/area with: Soap & Water and Keep Dressing Clean & Dry Follow Up Care Please Follow Up With: Nicolle Massey DO When: Call [phone] to make an appointment for an incision check in 1-2 weeks. Test Results: Test results from this visit will be discussed in further detail at your follow- up appointment, if applicable. Discharge Plan Admission Admit Date/Time: 02/19/24 11:47 Primary Reason for Your Visit: section Attending Provider: Kari Vanegas Primary Care Provider: [facility] Discharge Orders/Prescriptions Prescriptions: New ibuprofen 800 mg tablet 800 mg PO Q8H PRN (Reason: pain) Qty: 30 0RF oxycodone-acetaminophen [Percocet] 5-325 mg tablet 1 tab PO Q4H PRN (Reason: pain) 7 Days Qty: 20 0RF Rx Instructions: 1-2 tabs q 4 hrs as needed for pain Continued PNV cmb#95-ferrous fumarate-FA [] 28 mg iron- 800 mcg tablet 1 tab PO DAILY 28-800 mg-mcg tablet PO Discontinued nifedipine 10 mg capsule 10 mg PO Q6H PRN (Reason: contractions) Qty: 30 3RF Referrals / Follow Up: [facility] Card MD [Primary Care Provider] - Disposition Disposition (needs filled in before D/C Order can be placed): Home, Self Care
[2024-02-19] MEDS: SimETHICONE 80 MG Chewable Tablet PO (20:21)
[2024-02-19] MEDS: Lactated Ringers 1,000 ML 100 ML IV (20:22)
[2024-02-20] VITALS (7 sets, daily range): BP systolic 89–102; BP diastolic 61–67; PULSE 71–88; RESP 15–17; TEMP 36.1–36.7; O2SAT 96–100
[2024-02-20] MEDS: Acetaminophen 500 MG Tablet 1000 MG PO ×4 (01:01→19:02)
[2024-02-20] MEDS: Ketorolac 30 MG/ML Syringe IV ×2 (05:35→11:54)
[2024-02-20 06:23] LABS: Mean Corp Hgb Conc 33.3 g/dL (32-36); Mean Corpuscular Hgb 30.4 pg (27.0-32.0); Mean Corpuscular Volume 91.2 fL (81-99); Mean Platelet Vol. 9.4 fl (6.2-12.0); Platelet Count 211 K/mm3 (150-450); RBC Distribution Width CV 11.8 % (11.6-14.6); RBC Distribution Width SD 39.4 fl (35.1-43.9); Red Blood Count 3.29 M/mm3 (4.2-5.4); White Blood Count 17.9 K/mm3 (4.4-11.0)
--- NOTE | 2024-02-20 08:09 | PN.OBGYN_ITS ---
Subjective Subjective Patient doing well without complaints. Tolerating PO. Busby cath out, has not voided yet but has done well getting up in room. . Feeding well. Denies chest pain, shortness of breath, calf pain/swelling, fevers, chills, lightheadedness. Objective Data Objective Data Vital Signs: Vital Signs Temp Pulse Resp BP Pulse Ox O2 Del Method 98.1 F 71 15 98/62 98 Room Air 02/20/24 03:40 02/20/24 03:40 02/20/24 03:40 02/20/24 03:40 02/20/24 03:40 02/20/24 03:40 Oxygen Delivery Method Room Air Weight: 182 lb 5.156 oz Body Mass Index (BMI) 28.5 Intake & Output: Intake and Output for Last 24 Hours 02/18/24 02/19/24 02/20/24 23:59 23:59 23:59 Intake Total 1960 / 1960 663.33 / 663.33 Output Total 1100 / 1100 1400 / 1400 Balance 860 / 860 -736.67 / -736.67 Lab / Micro Data 02/20/24 06:08 Labs: Laboratory Results - last 24 hr 02/19/24 12:25: WBC 10.9, RBC 3.96 L, Hgb 12.1, Hct 36.4 L, MCV 91.9, MCH 30.6, MCHC 33.2, RDW Std Deviation 40.0, RDW Coeff of Flavia 11.9, Plt Count 256, MPV 9.4, Immature Gran % (Auto) 1.300 H, Neut % (Auto) 76.4 H, Lymph % (Auto) 11.6 L , [place] % (Auto) 9.9, Eos % (Auto) 0.3, Baso % (Auto) 0.5, Absolute Neuts (auto) 8.3 H, Absolute Lymphs (auto) 1.26, Nucleated RBC % 0, Syphilis Total Ab Non- reactive, Blood Type O POSITIVE, Antibody Screen NEGATIVE 02/19/24 14:08: Vag Amniotic Fld Detect Negative 02/20/24 06:08: WBC 17.9 H, RBC 3.29 L, Hgb 10.0 L, Hct 30.0 L, MCV 91.2, MCH 30.4, MCHC 33.3, RDW Std Deviation 39.4, RDW Coeff of Flavia 11.8, Plt Count 211, MPV 9.4 Physical Exam Const alert and oriented x3 HEENT normocephalic Eyes PERRL Neck full ROM Resp normal respiratory effort GI soft to palpation GI Narrative: FF below U. Dressing dry and intact Palpation: tender other (appropriately) Assessment & Plan (1) Status post section: COMMENT: 02/19/24: PCS JV Breech. Sundeep PLAN: Plan s/p LTCS PPD # 1 1. routine post care 2. breast feeding- support given 3. rh positive 4. rubella immune
[2024-02-20] MEDS: Senna/Docusate Sodium 1 Tablet PO (10:29)
[2024-02-20] MEDS: SimETHICONE 80 MG Chewable Tablet PO (16:19)
[2024-02-20] MEDS: Ibuprofen 600 MG Tablet PO ×2 (17:40→23:19)
[2024-02-21] MEDS: Acetaminophen 500 MG Tablet 1000 MG PO ×4 (01:53→19:54)
[2024-02-21 01:54] VITALS: BP 102/63; PULSE 70; RESP 16; TEMP 36.3
[2024-02-21] MEDS: SimETHICONE 80 MG Chewable Tablet PO (02:18)
[2024-02-21] MEDS: Ibuprofen 600 MG Tablet PO ×4 (04:18→23:16)
[2024-02-21 07:56] VITALS: BP 96/72; PULSE 77; RESP 18; TEMP 36.5; O2SAT 97
--- NOTE | 2024-02-21 08:01 | PCM.PN.OB ---
Subjective Subjective Patient doing well without complaints. Tolerating PO. Ambulating and voiding without difficulty. Feeding well. Denies chest pain, shortness of breath, calf pain/swelling, fevers, chills, lightheadedness. Objective Data Objective Data Vital Signs: Vital Signs Temp Pulse Resp BP Pulse Ox O2 Del Method 97.4 F L 70 16 102/63 97 Room Air 02/21/24 01:54 02/21/24 01:54 02/21/24 01:54 02/21/24 01:54 02/20/24 20:38 02/21/24 01:54 Oxygen Delivery Method Room Air Weight: 182 lb 5.156 oz Body Mass Index (BMI) 28.5 Intake & Output: Intake and Output for Last 24 Hours 02/19/24 02/20/24 02/21/24 23:59 23:59 23:59 Intake Total 1960 / 1960 663.33 / 663.33 Output Total 1100 / 1100 1950 / 1950 Balance 860 / 860 -1286.67 / -1286.67 Lab / Micro Data 02/20/24 06:08 Physical Exam Const alert and oriented x3 HEENT normocephalic Eyes PERRL Neck full ROM Resp normal respiratory effort GI soft to palpation GI Narrative: FF below U. Dressing dry and intact Palpation: tender other (appropriately) Assessment & Plan (1) Status post section: COMMENT: 02/19/24: PCS JV Breech. Sundeep PLAN: Plan s/p LTCS PPD # 2 1. routine post care 2. breast feeding- support given 3. rh positive 4. rubella immune
[2024-02-21] MEDS: Senna/Docusate Sodium 1 Tablet PO (10:49)
[2024-02-21 13:20] VITALS: BP 103/64; PULSE 78; RESP 17; TEMP 36.6; O2SAT 99
[2024-02-21 17:10] VITALS: BP 106/63; PULSE 76; RESP 18; TEMP 36.6
[2024-02-21 20:39] VITALS: BP 94/54; PULSE 83; RESP 15; TEMP 36.5; O2SAT 97
[2024-02-22] MEDS: Acetaminophen 500 MG Tablet 1000 MG PO ×2 (01:48→07:49)
[2024-02-22 01:57] VITALS: BP 105/68; PULSE 84; RESP 15; TEMP 36.4; O2SAT 98
[2024-02-22] MEDS: Ibuprofen 600 MG Tablet PO ×2 (05:08→10:43)
[2024-02-22 07:45] VITALS: BP 100/61; PULSE 77; RESP 16; TEMP 36.4; O2SAT 97
--- NOTE | 2024-02-22 09:31 | PCM.PN.OB ---
Subjective Subjective Patient doing well without complaints. Tolerating PO. Ambulating and voiding without difficulty. Feeding well. Denies chest pain, shortness of breath, calf pain/swelling, fevers, chills, lightheadedness. Objective Data Objective Data Vital Signs: Vital Signs Temp Pulse Resp BP Pulse Ox O2 Del Method 97.6 F L 77 16 100/61 97 Room Air 02/22/24 07:45 02/22/24 07:45 02/22/24 07:45 02/22/24 07:45 02/22/24 07:45 02/22/24 07:45 Oxygen Delivery Method Room Air Weight: 182 lb 5.156 oz Body Mass Index (BMI) 28.5 Intake & Output: Intake and Output for Last 24 Hours 02/20/24 02/21/24 02/22/24 23:59 23:59 23:59 Intake Total 663.33 / 663.33 Output Total 1950 / 1950 Balance -1286.67 / -1286.67 Lab / Micro Data 02/20/24 06:08 Physical Exam Const alert and oriented x3 HEENT normocephalic Eyes PERRL Neck full ROM Resp normal respiratory effort GI soft to palpation GI Narrative: FF below U. Dressing intact, old drainage marked without additional active drainage Palpation: tender other (appropriately) Assessment & Plan (1) Status post section: COMMENT: 02/19/24: PCS JV Breech. Sundeep PLAN: s/p LTCS PPD # 2 1. routine post care 2. breast feeding- support given 3. rh positive 4. rubella immune 5. d/c home today
[2024-02-22] MEDS: Senna/Docusate Sodium 1 Tablet PO (10:43)
--- NOTE | 2024-02-26 10:29 | NURSING ---
Here for visit with [facility], follow up phone call questions asked. Patient states she is doing ok, minimal pain, taking Tylenol and Motrin for discomfort. States she was able to get some good sleep last night. is going well with nipple shield. Patient states her bleeding is decreasing, denies any problems, questions or concerns.
== END 2024-02-22 11:00 | disposition home or self-care (01) | DRG 788 ==
PROVIDERS: Obstetrics & Gynecology; Admitting Provider Obstetrics & Gynecology; PCP Family Medicine; Visit Provider Obstetrics & Gynecology
DX: O32.1XX0 Maternal care for breech presentation, not applicable or unspecified (principal); O34.03 Maternal care for unspecified congenital malformation of uterus, third trimester; Q51.3 Bicornate uterus; Z37.0 Single live birth; Z3A.37 37 weeks gestation of pregnancy
CPT/HCPCS: 59025; 59050; 84112; 85025; 85027; 86780; 86850; 86900; 86901; 99221; J7120; G0378; J2405

== ENCOUNTER → 2025-03-20 | Outpatient (CLI) | payer OTHER, SELFPAY ==
[2025-03-20 17:51] LABS: hCG Titer Quant., Serum 76 mIU/mL (<9 non-preg)
== END | disposition home or self-care (01) ==
PROVIDERS: PCP Family Medicine; Referring Provider Obstetrics & Gynecology; Visit Provider Obstetrics & Gynecology
DX: N91.2 Amenorrhea, unspecified (principal)
CPT/HCPCS: 36415; 84702

== ENCOUNTER → 2025-03-22 | Outpatient (CLI) | payer OTHER, SELFPAY ==
--- OUTSIDE RECORDS SUMMARY | 2025-03-22 16:15 | XMS RPT_ITS | CCD ---
Author Organization [facility] CliniSymi Care Team Providers Care Plate Cutter Name Role Phone Juan, Ann Unavailable Unavailable Juan, Ann Unavailable Unavailable Luisa Grover LPN Unavailable Unavailab le BERTRANDROXANN RANDOLPH DO Attending Unavailable BERTRAND DOROXANN Consulting Unavailable BERTRAND DOROXANN Admitting Unavailable NONE, NONE Primary Care Unavailable NONE, NONE Consulting Unavailable Unavailable Primary Care Provider UnavailBoston Arrieta MD Primary Care Provider Dr. [place] Lopez Primary Care Provider Dr. [place] Lopez Referring Provider JESUS Marshall Attending Provider SOLITARIO Aviles NP Attending Provider JESUS Herrera Attending Provider Dr. [place] Lopez Primary Care Provider Dr. [place] Lopez Referring Provider JESUS Marshall Attending Provider SOLITARIO Aviles NP Attending Provider JESUS Herrera Attending Provider Dr. Kari Vanegas Attending Provider Dr. Nicolle Massey Attending Provider BOSTON LOPEZ Primary Care Unavailable ROGER MARSHALL Referring Unavailable HINA NEWMAN Attending Unavailable HINA NEWMAN Attending Unavailable BOSTON LOPEZ Primary Care Unavailable ROGER MARSHALL Referring Unavailable TRUNG CANELA Attending Unavailable BOSTON LOPEZ Primary Care Unavailable ROGER MARSHALL Referring Unavailable JOHN, BOSTON J Primary Care Unavailable ROGER MARSHALL Referring Unavailable NEWMANHINA CARRILLO Sugar Attending Unavailable TRUNG CANELA Attending Unavailable JOHN, BOSTON J Primary Care Unavailable ROGER MARSHALL Referring Unavailable ANDRZEJ GARCIA, [place] Primary Care Physician ER_REG, TEMP ID Attending Unavailable ANDRZEJ GARCIA, CARYN Primary Care Unavailable Roger Marshall Attending Unavailable John, [place] Primary Care Unavailable John, [place] Referring Unavailable Vandricco VelNicolle gonzalez Attending Unavailabl e [place], [place] Primary Care Unavailable [place], [place] Referring Unavailable Vande VelNicolle gonzalez Attending Unavailabl e [place], [place] Primary Care Unavailable Kari Vanegas Consulting Unavailable Kari Vanegas Admitting Unavailable [place], [place] Primary Care Unavailable Traci GROUND OPERATIONS CREW MEMBER, Ria Attending Unavailable [place], [place] Referring Unavailable John, [place] Primary Care Unavailable Martinee Nicolle Lagos Attending Unavailabl e John, [place] Referring Unavailable John, [place] Primary Care Unavailable Fortune GROUND OPERATIONS CREW MEMBER, Tiny Attending Unavailable [place], [place] Referring Unavailable John, [place] Primary Care Unavailable Roger Marshall Attending Unavailable [place], [place] Referring Unavailable Vande VelNicolle gonzalez Attending Unavailabl e John, [place] Referring Unavailable John, [place] Primary Care Unavailable John, [place] Primary Care Unavailable Roger Marshall Attending Unavailable [place], [place] Referring Unavailable John, [place] Primary Care Unavailable John, [place] Referring Unavailable HerreraRaven Attending Unavailable John, [place] Primary Care Unavailable [place], [place] Referring Unavailable HerreraRaven Attending Unavailable Nicolle Massey Attending Unavailabl e [place], [place] Primary Care Unavailable John, [place] Referring Unavailable [place], [place] Referring Unavailable John, [place] Primary Care Unavailable Traci GROUND OPERATIONS CREW MEMBER, Ria Attending Unavailable Roger Marshall Attending Unavailable John, [place] Referring Unavailable John, [place] Primary Care Unavailable John, [place] Primary Care Unavailable Kari Vanegas Attending Unavailable John, [place] Referring Unavailable John, [place] Primary Care Unavailable [place], [place] Referring Unavailable Fortune GROUND OPERATIONS CREW MEMBER, Tiny Attending Unavailable Nicolle Massey Attending Unavailabl e John, [place] Primary Care Unavailable [place], [place] Referring Unavailable Ellsworth GROUND OPERATIONS CREW MEMBER, Ria Attending Unavailable Raven Herrera Attending Unavailable Herrera, Raven Referring Unavailable Herrera, Raven Attending Unavailable [place], [place] Primary Care Unavailable Raven Herrera Consulting Unavailable Vande Velde, Nicolle Consulting Unavailabl e Vande Velde, Nicolle Referring Unavailabl e [facility] Primary Care Unavailable Roger Marshall Attending Unavailable [place], [facility] Primary Care Unavailable Roger Marshall Attending Unavailable [place], [place] Referring Unavailable [place], [facility] Primary Care Unavailable [place], [facility] Referring Unavailable Ria Aviles NP Attending Unavailable [place], [facility] Primary Care Unavailable Roger Marshall Referring Unavailable Roger Marshall Attending Unavailable Raven Herrera Attending Unavailable Raven Herrera Referring Unavailable [place], [facility] Primary Care Unavailable Vande Velde, Nicolle Referring Unavailabl e Vande Velde, Nicolle Attending Unavailabl e [place], [facility] Primary Care Unavailable Vande Vellisa, Nicolle Attending Unavailabl e Vande Velde, Nicolle Referring Unavailabl e [facility] Primary Care Unavailable [place], [facility] Primary Care Unavailable Kari Vanegas Admitting Unavailable Kari Vanegas Attending Unavailable [place], [facility] Primary Care Unavailable Roger Marshall Attending Unavailable Roger Marshall Referring Unavailable [place], [facility] Primary Care Unavailable Sherwin Mendoza Attending Unavailable Sherwin Mendoza Referring Unavailable [facility] Primary Care Unavailable Nicolle Martinez Attending Unavailable Roger Marshall Referring Unavailable Roger Marshall Attending Unavailable [place], [facility] Primary Care Unavailable [place], [facility] Primary Care Unavailable Roger Marshall Attending Unavailable Roger Marshall Referring Unavailable Raven Herrera Consulting Unavailable [facility] Primary Care Unavailable [place], [facility] Referring Unavailable Tiny Garcia NP Attending Unavailable Vandricco Lagos, Nicolle Attending Unavailabl e Vande Velde, Nicolle Consulting Unavailabl e [facility] Primary Care Unavailable Vande Vellisa, Nicolle Attending Unavailabl e Vande Velde, Nicolle Referring Unavailabl e [facility] Primary Care Unavailable Vande Vellisa, Nicolle Attending Unavailabl e Vande Velde, Nicolle Referring Unavailabl e [facility] Primary Care Unavailable Vande Velde, Nicolle Referring Unavailabl e [facility] Primary Care Unavailable Vande Vellisa, Nicolle Attending Unavailabl e Vande Velde, Nicolle Referring Unavailabl e Vande Velde, Nicolle Attending Unavailabl e [facility] Primary Care Unavailable Vande Velde, Nicolle Attending Unavailabl e [place], [facility] Primary Care Unavailable [place], [facility] Primary Care Unavailable JohnBoston stone Referring Unavailable Raven Herrera Attending Unavailable Kari Vanegas Attending Unavailable [place] Lopez Primary Care Unavailable [place] Lopez Unavailable Unavailable Primary Care Provider Unavailchauncey Lpoez MD, [place] Rogers Primary Care Provider Rylan TOOL INSPECTOR.GRISELLeoy Unavailable Marlon TOOL INSPECTOR.GRISEL, Luli Risa Unavailable BOSTON LOPEZ Referring Unavailable BOSTON LOPEZ Primary Care Unavailable BOSTON LOPEZ Referring Unavailable BOSTON LOPEZ Primary Care Unavailable JESICA JOHNSON Attending Unavailable BOSTON LOPEZ Primary Care Unavailable BOSTON LOPEZ Attending Unavailable BOSTON LOPEZ Primary Care Unavailable BOSTON LOPEZ Referring Unavailable BOSTON LOPEZ Primary Care Unavailable Allergies Allergy Classification Reported Allergen(s) Allergy Type Date of Onset Reaction(s) Facility (1 source) No Known Medication Allergies; Translations: [No Known Medication Allergies] Propensity to adverse reactions to drug (disorder) [facility] Repository (1 source) Pollen; Translations: [POLLEN] allergy to substance 7 [facility] Work Phone: (20 sources) Pollen; Translations: [POLLEN EXTRACTS] Allergy to substance 7 Other: See Comments [facility] Work Phone: (1 source) Pollen Drug allergy (disorder) 4 [facility] Repository Medications Current Medications Medication Drug Class(es) Dates Sig (Normalized) Sig (Original) amoxicillin 875 mg oral tablet (1 source) Penicillin-class Antibacterial Start: 06-05-2024 End: 06-12-2024 take 1 tablet by mouth twice daily amoxicillin (AMOXIL) 875 mg tablet Indications: Acute cough , Fever, unspecified fever cause , Sinobronchitis Take 1 tablet by mouth two times a day for 7 days. 14 tablet 06/05/2024 06/12/2024 Active azithromycin 250 mg oral tablet (6 sources) Macrolide Antimicrobial Start: 12-09-2017 Azithromycin Active 0 PO .COMPLEX December 09, 2017 12:00am Take two tablets by mouth on day one then one tablet by mouth on days 2-5 Start: 04-30-2017 AZITHROMYCIN 2 50 MG TABS 2 tablets today, then 1 tablet daily on days 2 through 5 AZITHROMYCIN [id number] Clint HIGGINS cefuroxime 500 mg oral tablet (1 source) Cephalosporin Antibacterial Start: 02-01-2023 End: 02-15-2023 take 1 tablet by mouth twice daily cefUROXime (CEFTIN) 500 mg tablet Indications: Erythema migrans Take 1 tablet by mouth twice daily for 14 days. 28 tablet 0 02/01/2023 02/15/2023 Active Comment on above: Take 1 tablet by jesu twice daily for 14 days. 12 hr dextromethorphan hydrobromide 60 mg / guaiFENesin 1200 mg extended release oral tablet (4 sources) Uncompetitive U-sbevvz-D-aspartat e Receptor Antagonist, Sigma-1 Agonist Start: 12-09-2017 take 60-1200 mg by mouth every twelve hours Dextromethorphan- Guaifenesin (Mucinex Dm) 60-1,200 mg tablet extended release 12 hr Active 1 TABLET PO Q12H December 09, 2017 12:00am doxylamine succinate 25 mg oral tablet (2 sources) Start: 09-21-2023 take 1 tablet by mouth at bedtime Doxylamine Succinate (Unisom (Doxylamine)) 25 mg tablet Active 25 MG PO AT BEDTIME September 21, 2023 1:00am Norethindrone-E.Estrad iol-Iron (4 sources) Estrogen Start: 09-03-2017 take 1 tablet by mouth once daily Norethindrone-E.E stradiol-Iron ( Fe 24) 1 mg-20 mcg (24)/75 mg (4) tablet Active 1 TABLET PO daily September 03, 2017 10:06am Start: 09-03-2017 take 1 tablet by jesu once daily Norethindrone-E.Estradiol-Iron ( Fe 24) 1 mg-20 mcg (24)/75 mg (4) tablet Active 1 TABLET PO daily September 03, 2017 1:00am fluconazole 150 mg oral tablet (2 sources) Azole Antifungal Start: 09-21-2023 Fluconazole A ctive 150 MG PO Every 3 Days 2 September 21, 2023 1:00am Pnv Cmb#95-Ferrous Fumarate-Fa () 28 mg iron- 800 mcg tablet (9 sources) Start: 03-02-2023 take 1 tablet by mouth once daily Pnv Cmb#95-Ferrous Fumarate-Fa () 28 mg iron- 800 mcg tablet Active 1 TABLET PO DAILY March 01, 2023 11:00pm Start: 03-02-2023 take 1 tablet by jesu th once daily Pnv Cmb#95-Ferrous Fumarate-Fa () 28 mg iron- 800 mcg tablet Active 1 TABLET PO DAILY March 02, 2023 12:00am sod bicarb-sod chlor-neti pot (NEILMED NASAFLO) pkdv (1 source) Start: 06-05-2024 End: 07-05-2024 sod bicarb-sod chlor-neti pot (NEILMED NASAFLO) pkdv Indications: Sinobronchitis 1 Packet by sinus irrigation route once daily as needed. 30 Each 06/05/2024 07/05/2024 Active vitamin b6 100 mg oral tablet (2 sources) Start: 09-21-2023 take 100 mg by mouth at bedtime Pyridoxine (Vitamin B6) Active 100 MG PO BEDTIME September 21, 2023 1:00am Completed/Discontinued Medications Medication Drug Class(es) Dates Sig (Normalized) Sig (Original) acetaminophen 500 mg oral tablet (2 sources) End: 08-27-2024 take 1 tablet by mouth every eight hours as needed acetaminophen (TYLENOL EXTRA STRENGTH) 500 mg tablet Take 500 mg by mouth every 8 hours as needed. 08/27/2024 Discontinued benzonatate 200 mg oral capsule (2 sources) Non-narcotic Antitussive Start: 04-30-2017 BENZONATATE 200 MG CAPS 1 capsule every 8 hours as needed for cough BENZONATATE [id number] Clint HIGGINS benzoyl peroxide 0.05 mg/mg / clindamycin phosphate 0.012 mg/mg topical gel (6 sources) Lincosamide Antibacterial Start: 04-18-2022 End: 08-27-2024 Clindamycin-Benzoy l Peroxide 1.2 %(1 % base) -5 % gel APPLY ONCE DAILY TO ALL AREAS OF ACNE AT BEDTIME - WILL BLEACH CLOTHES UNTIL DRY. 04/18/2022 08/27/2024 Discontinued Comment on above: APPLY ONCE DAILY TO ALL AREAS OF ACNE AT BEDTIME - WILL BLEACH CLOTHES UNTIL DRY. cephalexin 500 mg oral capsule (1 source) Cephalosporin Antibacterial Start: 01-30-2023 End: 02-01-2023 take 1 capsule by mouth four times daily cephALEXin (KEFLEX) 500 mg capsule take 1 capsule by mouth four times a day for 7 days 0 01/30/2023 02/01/2023 Discontinued Comment on above: take 1 capsule by mo [facility] four times a day for 7 days Magnesium (9 sources) Start: 03-02-2023 End: 08-18-2023 take 250 mg by mouth once daily Magnesium Discontinued 250 MG PO DAILY March 02, 2023 12:00am August 18, 2023 11:58pm Start: 03-02-2023 End: 08-18-2023 take 250 mg by mouth once daily Magnesium Discontinued 250 MG PO DAILY March 01, 2023 11:00pm August 18, 2023 10:58pm Start: 03-02-2023 take 250 mg by mouth once daily Magnesium Active 250 MG PO DAILY March 01, 2023 11:00pm Start: 03-02-2023 take 250 mg by mouth once daily Magnesium Active 250 MG PO DAILY March 02, 2023 12:00am NORETHIN SARAH-ETH ESTRAD-FE TABS (1 source) Start: 04-30-2017 24 TA BS as directed NORETHIN SARAH-ETH ESTRAD-FE TABS [id number] Luisa Grover LPN sulfacetamide sodium 100 mg/ml ophthalmic solution (13 sources) Sulfonamide Antibacterial Start: 09-07-2017 End: 09-12-2017 Sulfacetamide Sodium (Bleph-10) 10 % drops Discontinued 1 DRP OPHTHALMIC Q3H 15 5 September 07, 2017 1:00am September 12, 2017 1:05am Problems Active Problems Problem Classification Problem Date Documented Da te Episodic/Chronic Diseases of mouth; excluding dental (1 source) Geographic tongue; Translations: [Geographic tongue] Episodic Early or threatened labor (2 sources) False labor before 37 completed weeks of gestation, unspecified trimester; Translations: [False labor before 37 completed weeks of gestation, unspecified trimester] Onset: 02-12-2024 Episodic Gastrointestinal hemorrhage (4 sources) Hematemesis; Translations: [Hematemesis] 08-18-2023 Episodic Genitourinary congenital anomalies (20 sources) Bicornuate uterus; Translations: [Bicornate uterus] Onset: 02-12-2024 07-27-2023 Chronic Immunizations and screening for infectious disease (4 sources) Patient encounter status; Translations: [Encounter for screening for infections with a predominantly sexual mode of transmission] Onset: 12-27-2023 Episodic Inflammation; infection of eye (except that caused by tuberculosis or sexually transmitteddisease) (13 sources) Acute infectious conjunctivitis; Translations: [Unspecified acute conjunctivitis, unspecified eye] 09-07-2017 Episodic Influenza (13 sources) Influenza due to Influenza A virus; Translations: [Influenza due to other identified influenza virus with other respiratory manifestations] 09-03-2017 Episodic Malposition; malpresentation (1 source) Maternal care for breech presentation, not applicable or unspecified; Translations: [Maternal care for breech presentation, not applicable or unspecified] Onset: 03-07-2024 Episodic Menstrual disorders (16 sources) Menstrual spotting; Translations: [Excessive and frequent menstruation with regular cycle] Onset: 08-28-2023 07-09-2023 Chronic Nausea and vomiting (4 sources) Vomiting; Translations: [Vomiting, unspecified] 08-18-2023 Episodic Nonspecific chest pain (2 sources) Chest pain; Translations: [Chest pain, unspecified] Onset: 09-15-2024 08-27-2024 Episodic Other circulatory disease (5 sources) Raynaud's disease; Translations: [Raynaud's syndrome without gangrene] 08-02-2023 Chronic Other circulatory disease (11 sources) Raynaud's syndrome without gangrene; Translations: [Raynaud's syndrome] Onset: 02-12-2024 08-02-2023 Chronic Other complications of ; puerperium affecting management of mother (1 source) Other disorders of breast associated with and the puerperium; Translations: [Other disorders of breast associated with and the puerperium] Onset: 03-25-2024 Episodic Other complications of (5 sources) H/O: miscarriage; Translations: [Supervision of with other poor reproductive or obstetric history, unspecified trimester] 07-27-2023 Episodic Other complications of (5 sources) High risk ; Translations: [Supervision of high risk , unspecified, unspecified trimester] 07-27-2023 Episodic Other complications of (16 sources) Supervision of with other poor reproductive or obstetric history, unspecified trimester; Translations: [Supervision of high-risk with history of ] Onset: 02-12-2024 08-02-2023 Episodic Other complications of (2 sources) Supervision of high risk , unspecified, third trimester; Translations: [Supervision of high risk , unspecified, third trimester] Onset: 03-10-2024 Episodic Other complications of (2 sources) Supervision of high risk , unspecified, second trimester; Translations: [Supervision of high risk , unspecified, second trimester] Onset: 01-14-2024 Episodic Other complications of (2 sources) Other specified related conditions, unspecified trimester; Translations: [Other specified related conditions, unspecified trimester] Onset: 12-18-2023 Episodic Other connective tissue disease (2 sources) Pain in finger of left hand; Translations: [Pain in left finger(s)] Episodic Other female genital disorders (1 source) Intrauterine synechiae; Translations: [Intrauterine synechiae] 11-05-2023 Episodic Other female genital disorders (4 sources) Intrauterine synechiae; Translations: [Intrauterine synechiae] Onset: 02-12-2024 11-05-2023 Episodic Other female genital disorders (2 sources) Other specified noninflammatory disorders of vagina; Translations: [Other specified noninflammatory disorders of vagina] Onset: 08-28-2023 Episodic Other lower respiratory disease (2 sources) Cough; Translations: [Acute cough] Onset: 04-30-2017 04-30-2017 Episodic Other lower respiratory disease (1 source) Cough; Translations: [Acute cough] 06-05-2024 Episodic Other and delivery including normal (20 sources) ; Translations: [Encounter for supervision of normal , unspecified, unspecified trimester] Onset: 09-21-2023 08-07-2023 Episodic Other screening for suspected conditions (not mental disorders or infectious disease) (4 sources) Cancer cervix screening status; Translations: [Encounter for screening for malignant neoplasm of cervix] Episodic Other skin disorders (1 source) Trachyonychia; Translations: [Nail dystrophy] 03-29-2023 Episodic Other skin disorders (1 source) Loss of hair; Translations: [Nonscarring hair loss, unspecified] 03-29-2023 Episodic Other upper respiratory infections (2 sources) Chronic sinusitis; Translations: [Chronic sinusitis, unspecified] Onset: 06-05-2024 06-05-2024 Chronic Polyhydramnios and other problems of amniotic cavity (2 sources) Premature rupture of membranes, unspecified as to length of time between rupture and onset of labor, unspecified weeks of gestation; Translations: [Premature rupture of membranes, unspecified as to length of time between rupture and onset of labor, unspecified weeks of gestation] Onset: 02-19-2024 Episodic Residual codes; unclassified (1 source) FH: Thyroid disorder; Translations: [Family history of other endocrine, nutritional and metabolic diseases] 03-29-2023 Episodic Residual codes; unclassified (1 source) 37 weeks gestation of ; Translations: [37 weeks gestation of ] Onset: 03-10-2024 Episodic Residual codes; unclassified (1 source) History of uterine scar from previous surgery; Translations: [History of uterine scar from previous surgery] Onset: 03-10-2024 Episodic Residual codes; unclassified (2 sources) 36 weeks gestation of ; Translations: [36 weeks gestation of ] Onset: 02-12-2024 Episodic Residual codes; unclassified (2 sources) 32 weeks gestation of ; Translations: [32 weeks gestation of ] Onset: 01-14-2024 Episodic Screening and history of mental health and substance abuse codes (2 sources) Encounter for screening examination for other mental health and behavioral disorders; Translations: [Encounter for screening for depression] Onset: 08-27-2024 Episodic Unclassified (1 source) Other specified diseases and conditions complicating ; Translations: [Other specified diseases and conditions complicating ] Onset: 01-23-2024 Unclassified (1 source) Acute cough; Translations: [Acute cough] Onset: 06-05-2024 Past or Other Problems Problem Classification Problem Date Documented Da te Episodic/Chronic Abdominal pain (2 sources) Unspecified abdominal pain; Translations: [Pelvic and perineal pain] Onset: 09-21-2023 Episodic Chronic obstructive pulmonary disease and bronchiectasis (2 sources) Bronchitis; Translations: [Bronchitis, not specified as acute or chronic] Onset: 04-30-2017 04-30-2017 Episodic Fever of unknown origin (2 sources) Fever; Translations: [Fever, unspecified] Onset: 06-05-2024 06-05-2024 Episodic Hemorrhage during ; abruptio placenta; placenta previa (19 sources) Subchorionic hematoma; Translations: [Other antepartum hemorrhage, unspecified trimester] Onset: 07-12-2023 07-09-2023 Episodic Other complications of (16 sources) Supervision of high risk , unspecified, unspecified trimester; Translations: [Supervision of unspecified high-risk ] Onset: 12-06-2023 08-02-2023 Episodic Other complications of (1 source) Diseases of the digestive system complicating , unspecified trimester; Translations: [Diseases of the digestive system complicating , unspecified trimester] Onset: 08-22-2023 Episodic Residual codes; unclassified (1 source) 27 weeks gestation of ; Translations: [27 weeks gestation of ] Onset: 12-11-2023 Episodic Residual codes; unclassified (1 source) 13 weeks gestation of ; Translations: [13 weeks gestation of ] Onset: 08-28-2023 Episodic Residual codes; unclassified (1 source) 8 weeks gestation of ; Translations: [8 weeks gestation of ] Onset: 08-02-2023 Episodic Results Test Name Value Interpretation Reference Range Facility [facility] 09-15-2024 Echocardiography Echocardiography Report: Transthoracic Echo Pending Sale To [facility] Date of service: 09/15/2024 7:50:41 AM WORKER SUPERVISOR Ordering physician: BOSTON LOPEZ Indication: Chest Pain Technologist: Miriam Marin [facility] Interpreting physician: Matthew Whitehead MD PATIENT: Name: KIM LOTT : 1995 Age: 29 years Gender: F Primary rhythm: sinus. Height: 170.20 cm BSA: 1.80 m Weight: 68.49 kg BMI: 23.6 kg/m Heart rate 75 bpm Blood pressure 107/69 mmHg Color Doppler was utilized to interrogate the cardiac valves assessed and spectral Doppler was utilized to determine the flow velocities and pressure gradients reported in this exam. Myocardial strain analysis was performed in this exam to aid in the assessment of cardiac function. MEASUREMENTS: Value Indexed Normal Max aortic dimension 2.9 cm Ao < 3.8 Left atrial volume 42 ml (4ch A-L) 23 ml/m Van <= 34 LV ID (diastole) 4.2 cm (2D) 2.33 cm/m LV ID (systole) 2.4 cm (2D) 1.35 cm/m IVS, leaflet tips 0.7 cm (2D) Posterior wall thickness 0.8 cm (2D) Left ventricular mass 97 g (2D) 54 g/m Global peak long strain -22.5 % LV stroke volume 57 ml (2D biplane) LV end diastolic volume 92 ml (2D biplane) 51.1 ml/m 29<=EDVi<62 LV end systolic volume 35 ml (2D biplane) 19.4 ml/m Ejection Fraction 62 % (2D biplane) EF > 54 FINDINGS: LEFT VENTRICLE The left ventricle is normal in size. Left ventricular systolic function is normal. Global LV myocardial strain is normal. Normal left ventricular diastolic function. Mitral annular lateral E/e': 5.4. Mitral annular septal E/e': 6.6. Wall Motion: All scored segments are normal. RIGHT VENTRICLE The right ventricle is normal in size. Right ventricular systolic function is normal. RV systolic tissue Doppler velocity is 11.0 cm/s. Tricuspid annular displacement is 2.0 cm. Estimated right atrial pressure is 3 mmHg (although IVC not seen). LEFT ATRIUM The left atrial cavity is normal in size. Pulmonary Veins: The pulmonary venous pattern showed blunted systolic flow. RIGHT ATRIUM The right atrial cavity is normal in size. Inferior Vena Cava: The inferior vena cava appears normal measuring 1.3 cm. MITRAL VALVE The mitral valve leaflets are structurally normal. There is no mitral valve regurgitation. The pressure half time is 55 msec. The peak mitral E/A ratio is 1.74. The average mitral E/e' ratio is 6.0. The mitral flow deceleration time is 189 msec. TRICUSPID VALVE The tricuspid valve leaflets are structurally normal. There is no tricuspid valve regurgitation. AORTIC VALVE The aortic valve cusps are structurally normal. There is no aortic valve regurgitation. The peak gradient is 9 mmHg (peak velocity = 150.6 cm/s). PULMONIC VALVE The pulmonic valve cusps are structurally normal. There is trace pulmonic valve regurgitation. AORTA The visualized aorta is normal in size. Measurements - Mid ascending aorta 2.9 cm. PERICARDIUM There is no pericardial effusion. CONCLUSIONS: - Exam indication: Chest Pain - The left ventricle is normal in size. Left ventricular systolic function is normal. EF = 62 5% (2D biplane) Normal left ventricular diastolic function. - The right ventricle is normal in size. Right ventricular systolic function is normal. - There are no significant valvular abnormalities. - The patient has not had a prior CC echocardiographic exam for comparison. * * * Final * * * [facility] [employer] [facility] : [id number] Normal [facility] CBC W Auto Differential pane l (Bld)on 08-27-2024 Basophils (Bld) [#/Vol] 0.03 10*3/uL [facility] Comment on above: Differential confirm ed by visual scan of peripheral blood smear slide. Basophils/100 WBC (Bld) 0.5 % [facility] Differential cell count method Nom (Bld) Auto [facility] Eosinophils (Bld) [#/Vol] 0.08 10*3/uL [facility] Eosinophils/100 WBC (Bld) 1.3 % [facility] Erythrocyte distribution width (RBC) [Ratio] 12.3 % 11.5 - 15.0 % [facility] Hematocrit (Bld) [Volume fraction] 41.3 % 36.0 - 46.0 % [facility] Hemoglobin (Bld) [Mass/Vol] 13.2 g/dL 11.5 - 15.5 g/dL [facility] Immature granulocytes (Bld) [#/Vol] [facility] Immature granulocytes/100 WBC (Bld) 0.2 % [facility] Lymphocytes (Bld) [#/Vol] 2.22 10*3/uL [facility] Lymphocytes/100 WBC (Bld) 36.7 % [facility] MCH (RBC) [Entitic mass] 29.1 pg 26. 0 - 34.0 pg [facility] MCHC (RBC) [Mass/Vol] 32.0 g/dL 30.5 - 36.0 g/dL [facility] MCV (RBC) [Entitic vol] 91.0 fL 80.0 - 100.0 fL [facility] Monocytes (Bld) [#/Vol] 0.64 10*3/uL NINF [facility] Monocytes/100 WBC (Bld) 10.6 % C [facility] Neutrophils (Bld) [#/Vol] 3.07 10*3/uL [facility] Neutrophils/100 WBC (Bld) 50.7 % [facility] Nucleated RBC (Bld) [#/Vol] [facility] Nucleated RBC/100 WBC (Bld) [Ratio] [facility] Platelet mean volume (Bld) [Entitic vol] 9.8 fL 9.0 - 12.7 fL [facility] Platelets (Bld) [#/Vol] 278 10*3/uL [facility] Platelets Estimate (Bld) [#/Vol] Adequate [facility] RBC (Bld) [#/Vol] 4.54 10*6/uL 3.90 - 5.2 0 m/uL [facility] Red Cell Morph Reviewed: normal [facility] WBC (Bld) [#/Vol] 6.05 10*3/uL [facility] This is an appended report. These results have been appended to a previously verified report. [facility] Basophils (Bld) [#/Vol] 0.03 10*3/uL Normal <0.11 [facility] Comment on above: Order Comment: Speci men Type: BLOOD SPECIMEN Ordering Facility: [facility] Address: [address] [place] [address] Result Comment: Diff erential confirmed by visual scan of peripheral blood smear slide. Performed By: #### 5 7021-8 #### [facility] CLIA [id number] [address] [place] [address] Basophils/100 WBC (Bld) 0.5 % Normal [facility] Comment on above: Order Comment: Speci men Type: BLOOD SPECIMEN Ordering Facility: [facility] Address: [address] [place] [address] Performed By: #### 5 7021-8 #### [facility] CLIA [id number] [address] [place] [address] [place] Differential cell count method Nom (Bld) Auto Normal [facility] Comment on above: Order Comment: Speci men Type: BLOOD SPECIMEN Ordering Facility: [facility] Address: [address] [place] [address] Performed By: #### 5 7021-8 #### [facility] CLIA [id number] [address] [place] [address] [place] Eosinophils (Bld) [#/Vol] 0.08 10*3/uL Normal <0.46 [facility] Comment on above: Order Comment: Speci men Type: BLOOD SPECIMEN Ordering Facility: [facility] Address: [address] [place] [address] Performed By: #### 5 7021-8 #### [facility] CLIA [id number] [address] [place] [id number] [facility] [place] Eosinophils/100 WBC (Bld) 1.3 % Normal [facility] Comment on above: Order Comment: Speci men Type: BLOOD SPECIMEN Ordering Facility: [facility] Address: [address] [place] [address] Performed By: #### 5 7021-8 #### [facility] CLIA [id number] [address] [place] [id number] [place] Erythrocyte distribution width (RBC) [Ratio] 12.3 % Normal 11.5-15.0 [facility] Comment on above: Order Comment: Speci men Type: BLOOD SPECIMEN Ordering Facility: [facility] Address: [address] [place] [address] Performed By: #### 5 7021-8 #### [facility] CLIA [id number] [address] [place] [address] [place] Hematocrit (Bld) [Volume fraction] 41.3 % Normal 36.0-46.0 [facility] Comment on above: Order Comment: Speci men Type: BLOOD SPECIMEN Ordering Facility: [facility] Address: [address] [place] [address] Performed By: #### 5 7021-8 #### [facility] CLIA [id number] [address] [place] [address] [place] Hemoglobin (Bld) [Mass/Vol] 13.2 g/dL Normal 11.5-15.5 [facility] Comment on above: Order Comment: Speci men Type: BLOOD SPECIMEN Ordering Facility: [facility] Address: [address] [place] [address] Performed By: #### 5 7021-8 #### [facility] CLIA [id number] [address] [place] [address] [place] Immature granulocytes (Bld) [#/Vol] 10*3/uL Normal <0.10 [facility] Comment on above: Order Comment: Speci men Type: BLOOD SPECIMEN Ordering Facility: [facility] Address: [address] [place] [address] Performed By: #### 5 7021-8 #### [facility] CLIA [id number] [address] [place] [address] [place] Immature granulocytes/100 WBC (Bld) 0.2 % Normal [facility] Comment on above: Order Comment: Speci men Type: BLOOD SPECIMEN Ordering Facility: [facility] Address: [address] [place] [address] Performed By: #### 5 7021-8 #### [facility] CLIA [id number] [address] [place] [address] [place] Lymphocytes (Bld) [#/Vol] 2.22 10*3/uL Normal 1.00-4.00 [facility] Comment on above: Order Comment: Speci men Type: BLOOD SPECIMEN Ordering Facility: [facility] Address: [address] [place] [address] Performed By: #### 5 7021-8 #### [facility] CLIA [id number] [address] [place] [address] [place] Lymphocytes/100 WBC (Bld) 36.7 % Normal [facility] Comment on above: Order Comment: Speci men Type: BLOOD SPECIMEN Ordering Facility: [facility] Address: [address] [place] [address] Performed By: #### 5 7021-8 #### [facility] CLIA [id number] [address] [place] [address] [place] MCH (RBC) [Entitic mass] 29.1 pg Normal 26.0-34.0 [facility] Comment on above: Order Comment: Speci men Type: BLOOD SPECIMEN Ordering Facility: [facility] Address: [address] [place] [address] Performed By: #### 5 7021-8 #### [facility] CLIA [id number] [address] [place] [address] [place] MCHC (RBC) [Mass/Vol] 32.0 g/dL Normal 30.5-36.0 [facility] Comment on above: Order Comment: Speci men Type: BLOOD SPECIMEN Ordering Facility: [facility] Address: [address] [place] [address] Performed By: #### 5 7021-8 #### [facility] CLIA [id number] [address] [place] MCV (RBC) [Entitic vol] 91.0 fL Normal 80.0-100.0 C [facility] Comment on above: Order Comment: Speci men Type: BLOOD SPECIMEN Ordering Facility: [facility] Address: [address] [place] [address] Performed By: #### 5 7021-8 #### [facility] CLIA [id number] [address] [place] [id number] [place] [address] [place] Monocytes (Bld) [#/Vol] 0.64 10*3/uL Normal <0.87 [facility] Comment on above: Order Comment: Speci men Type: BLOOD SPECIMEN Ordering Facility: [facility] Address: [address] [place] [address] Performed By: #### 5 7021-8 #### [facility] CLIA [id number] [address] [place] [address] [facility] Monocytes/100 WBC (Bld) 10.6 % Normal C [facility] Comment on above: Order Comment: Speci men Type: BLOOD SPECIMEN Ordering Facility: [facility] Address: [address] [place] [address] Performed By: #### 5 7021-8 #### [facility] CLIA [id number] [address] [place] [address] [place] Neutrophils (Bld) [#/Vol] 3.07 10*3/uL Normal 1.45-7.50 [facility] Comment on above: Order Comment: Speci men Type: BLOOD SPECIMEN Ordering Facility: [facility] Address: [address] [place] [address] Performed By: #### 5 7021-8 #### [facility] CLIA [id number] [address] [place] [address] [place] Neutrophils/100 WBC (Bld) 50.7 % Normal [facility] Comment on above: Order Comment: Speci men Type: BLOOD SPECIMEN Ordering Facility: [facility] Address: [address] [place] [address] Performed By: #### 5 7021-8 #### [facility] CLIA [id number] [address] [place] [address] [place] Nucleated RBC (Bld) [#/Vol] Normal [facility] Comment on above: Order Comment: Speci men Type: BLOOD SPECIMEN Ordering Facility: [facility] Address: [address] [place] [address] Performed By: #### 5 7021-8 #### [facility] CLIA [id number] [address] [place] [address] [place] Nucleated RBC/100 WBC (Bld) [Ratio] Normal [facility] Comment on above: Order Comment: Speci men Type: BLOOD SPECIMEN Ordering Facility: [facility] Address: [address] [place] [address] Performed By: #### 5 7021-8 #### [facility] CLIA [id number] [address] [place] [address] [place] Platelet mean volume (Bld) [Entitic vol] 9.8 fL Normal 9.0-12.7 [facility] Comment on above: Order Comment: Speci men Type: BLOOD SPECIMEN Ordering Facility: [facility] Address: [address] [place] [address] Performed By: #### 5 7021-8 #### [facility] CLIA [id number] [address] [place] [address] [place] Platelets (Bld) [#/Vol] 278 10*3/uL Normal 150-400 [facility] Comment on above: Order Comment: Speci men Type: BLOOD SPECIMEN Ordering Facility: [facility] Address: [address] [place] [address] Performed By: #### 5 7021-8 #### [facility] CLIA [id number] [address] [place] [address] [place] Platelets Estimate (Bld) [#/Vol] Adequate Normal [facility] Comment on above: Order Comment: Speci men Type: BLOOD SPECIMEN Ordering Facility: [facility] Address: [address] [place] [address] Performed By: #### 5 7021-8 #### [facility] CLIA [id number] [address] [place] [address] [place] RBC (Bld) [#/Vol] 4.54 10*6/uL Normal 3.90-5.20 [facility] Comment on above: Order Comment: Speci men Type: BLOOD SPECIMEN Ordering Facility: [facility] Address: [address] [place] [address] Performed By: #### 5 7021-8 #### [facility] CLIA [id number] [address] [place] [address] [facility] [place] RED CELL MORPH Reviewed: normal Normal [facility] Comment on above: Order Comment: Speci men Type: BLOOD SPECIMEN Ordering Facility: [facility] Address: [address] [place] [address] Performed By: #### 5 7021-8 #### [facility] CLIA [id number] [address] [place] [address] [place] WBC (Bld) [#/Vol] 6.05 10*3/uL Normal 3.70-11.00 [facility] Comment on above: Order Comment: Nevaeh graves Type: BLOOD SPECIMEN Ordering Facility: [facility] Address: [facility] [place] [address] Performed By: #### 5 7021-8 #### [facility] CLIA [id number] [address] [place] [address] [facility] CNOVon 08-27-2024 CNOV Office Visit (FAMPWS) KIM LOTT ([id number]) 1995 F Date Time Provider Department 08/27/24 1:00 PM [facility] During your visit today, we recorded the following information about you: Pulse Blood pressure Weight Height 88/minute 104/67 68.5 kg 1.702 m Last Period 05/30/23 Boston Lopez MD 08/27/2024 1:34 PM Signed Patient presents with: Physical HPI: Patient presents today for office visit for well adult exam. Physical Recent . Gave to her son on 02/19/24. Has noticed since giving while she is or pumping she will get a fleeting chest tightness. Refers to a tight squeeze and then release. Left side of chest. Lasts seconds and then goes away. Intermittent. Some days happens more frequently while other days doesn't happen at all. Last time it occurred was about two weeks ago. Denies any shortness of breath. Mentions back in 2018 or 2019 had odd sensations in her chest where she would feel like there was a bubble inside her chest. Taking a deep breath would make it feel like the bubble popped and then sensation would go away. Never evaluated for this. No swelling in the legs. No hx of dvt. Has been going on since January. Has not happened in two weeks. No cough. No chest pain with exertion No dizziness No near syncope. No palpable tenderness. No definite palpitations. Has had those issues in the past Has noticed a spot on left side of her back. Has not gotten bigger in size. No changes in size or shape. Does not itch. Has been there maybe 9 months. MEDICATIONS: No current outpatient medications on file. No current facility-administere d medications for this visit. ALLERGIES: ALLERGIES Allergen Reactions Pollen Extracts Other: See Comments PAST MEDICAL HISTORY Diagnosis Date Cervical high risk HPV (human papillomavirus) test positive 2017 PAST SURGICAL HISTORY Procedure Laterality Date APPENDECTOMY HX 2004 SNGL 02/19/2024 DANDC SUCTION 03/05/2023 missed ab VAGINOSCOPY 2018 FAMILY HISTORY Problem Relation Age of Onset Hypothyroidism Mother No Known Problems Father No Known Problems Brother No Known Problems Brother Cancer Maternal Grandfather Social History Tobacco Use Smoking status: Never Smokeless tobacco: Never Vaping Use Vaping status: Never Used Substance Use Topics Alcohol use: Yes Comment: occasional Drug use: Never Reviewed current medications, allergies, past medical history, surgical history, family history and social history today. REVIEW OF SYSTEMS GENERAL: no unexplained fatigue or fever. HEENT: Negative for frequent or significant headaches, No changes in hearing or vision, no nose bleeds or other nasal problems NECK: Negative for lumps, goiter, pain and significant neck swelling RESPIRATORY: Negative for cough, hemoptysis, wheezing, COPD, dyspnea or shortness of breath CARDIOVASCULAR: as above. 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 ENDOCRINE: Negative for cold or heat intolerance, polyuria, polydipsia and goiter All other reviewed and negative other than HPI. HEALTH MAINTENANCE: Reviewed health maintenance issues today and recommended the following in detail. Depression Screening Never done Anxiety Screening Never done Influenza Vaccine(1) Never done Covid-19 Vaccine( season) due on 03/30/2024 VITALS: BP 104/67 Pulse 88 Ht 170.2 cm (5' 7) Wt 68.5 kg (151 lb) LMP 05/30/2023 (Approximate) BMI 23.65 kg/m? Last 4 Encounter Wt Readings: Date: Wt: 08/27/2024 68.5 kg (151 lb) 06/05/2024 75.6 kg (166 lb 10.7 oz) 02/01/2023 67.6 kg (149 lb) 08/01/2022 66.7 kg (147 lb) PHYSICAL EXAMINATION: General appearance: Well appearing, alert, in no acute distress, well-hydrated, well nourished. Skin: Skin color, texture, turgor normal, no suspicious rashes or lesions/ benign appearing mole on back. Head: Normocephalic, no masses, lesions, tenderness or abnormalities Eyes: Anicteric sclera. Pupils are equally round and reactive to light. Extraocular movements are intact. Ears: External ears normal, canals clear Nose/Sinuses: Nares normal, septum midline, mucosa normal, no drainage or sinus tenderness Oropharynx: Lips, mucosa, and tongue normal, teeth and gums normal, oropharynx normal Neck: Supple, no adenopathy; thyroid symmetric, normal size, no bruits Lungs: Lungs clear to auscultation. No wheezing, rhonchi, rales Heart: RRR without murmur, gallop, or rubs. No ectopy Abdomen: Normal abdominal exam, Abdomen soft, non-tender. Bowel sounds normal. No masses, organomegaly Extremities: No deformities, edema, skin discoloration, clubbing or cy (more content not included)... Normal [facility] Comprehensive metabolic 2000 panelon 08-27-2024 Albumin [Mass/Vol] 4.6 g/dL 3.9 - 4.9 g/dL [facility] ALP [Catalytic activity/Vol] 96 U/L 34 - 123 U/L [facility] ALT With P-5'-P [Catalytic activity/Vol] 6 U/L Low 7 - 38 U/L [facility] Anion gap [Moles/Vol] 9 mmol/L 8 - 15 mmol/L [facility] AST With P-5'-P [Catalytic activity/Vol] 14 U/L 13 - 35 U/L [facility] Bilirubin [Mass/Vol] 0.3 mg/dL 0.2 - 1 .3 mg/dL [facility] Calcium [Mass/Vol] 9.7 mg/dL 8.5 - 10. 2 mg/dL [facility] Chloride [Moles/Vol] 101 mmol/L 98 - 10 7 mmol/L [facility] CO2 [Moles/Vol] 29 mmol/L 22 - 30 mmol/L [facility] Creatinine [Mass/Vol] 0.80 mg/dL 0.58 - 0.96 mg/dL [facility] GFR/1.73 sq M.predicted among non-blacks MDRD (S/P/Bld) [Vol rate/Area] 102 mL/min/{1.73_m2} - PINF [facility] Comment on above: Estimated Glomerular Filtration Rate (eGFR) is calculated using the 2020 CKD-EPI creatinine equation. This equation utilizes serum creatinine, sex, and age as parameters. The creatinine assay has traceable calibration to isotope dilution-mass spectrometry. Refer to KDIGO guidelines for clinical interpretation. In patients with unstable renal function, e.g. those with acute kidney injury, the eGFR may not accurately reflect actual GFR. Glucose [Mass/Vol] 95 mg/dL 74 - 99 mg/dL [facility] Comment on above: The [place] Diab[employer] Association (ADA) provides guidance for cutoff values for fasting glucose and random glucose. The ADA defines fasting as no caloric intake for at least 8 hours. Fasting plasma glucose results between 100 to 125 mg/dL indicate increased risk for diabetes (prediabetes). Fasting plasma glucose results greater than or equal to 126 mg/dL meet the criteria for diagnosis of diabetes. In the absence of unequivocal hyperglycemia, results should be confirmed by repeat testing. In a patient with classic symptoms of hyperglycemia or hyperglycemic crisis, random plasma glucose results greater than or equal to 200 mg/dL meet the criteria for diagnosis of diabetes. Reference: Standards of Medical Care in Diabetes 2016, [place] [employer]. Diabetes Care. 2016.39(Suppl 1). Interpretation and review of laboratory results Abnormal [facility] Potassium [Moles/Vol] 4.2 mmol/L 3.7 - 5.1 mmol/L [facility] Protein [Mass/Vol] 7.5 g/dL 6.3 - 8.0 g/dL [facility] Sodium [Moles/Vol] 139 mmol/L 136 - 144 mmol/L [facility] Urea nitrogen [Mass/Vol] 14 mg/dL 7 - 21 mg/d L [facility] Albumin [Mass/Vol] 4.6 g/dL Normal 3.9-4.9 [facility] Comment on above: Order Comment: Speci men Type: BLOOD SPECIMEN Ordering Facility: [facility] Address: [address] [place] [address] Performed By: #### L IPNF, 61116-4, 6-3 #### [facility] CLIA [id number] [address] [place] [address] [place] ALP [Catalytic activity/Vol] 96 U/L Normal 34-123 [facility] Comment on above: Order Comment: Speci men Type: BLOOD SPECIMEN Ordering Facility: [facility] Address: [address] [place] [address] Performed By: #### L IPNF, 69825-1, 3015-3 #### [facility] CLIA [id number] [address] [place] [address] [place] ALT With P-5'-P [Catalytic activity/Vol] 6 U/L Low 7-38 [facility] Comment on above: Order Comment: Speci men Type: BLOOD SPECIMEN Ordering Facility: [facility] Address: [address] [place] [address] Performed By: #### L IPNF, 55740-2, 6-3 #### [facility] CLIA [id number] [address] [place] [address] [facility] Anion gap [Moles/Vol] 9 mmol/L Normal 8-15 [facility] Comment on above: Order Comment: Speci men Type: BLOOD SPECIMEN Ordering Facility: [facility] Address: [address] [place] [address] Performed By: #### L IPNF, 49295-3, 6-3 #### [facility] CLIA [id number] [address] [place] [address] [facility] [place] AST With P-5'-P [Catalytic activity/Vol] 14 U/L Normal 13-35 [facility] Comment on above: Order Comment: Speci men Type: BLOOD SPECIMEN Ordering Facility: [facility] Address: [address] [place] [address] Performed By: #### L IPNF, , 3015-3 #### [facility] CLIA [id number] [address] [place] [address] [place] Bilirubin [Mass/Vol] 0.3 mg/dL Normal 0.2-1.3 [facility] Comment on above: Order Comment: Speci men Type: BLOOD SPECIMEN Ordering Facility: [facility] Address: [address] [place] [address] Performed By: #### L IPNF, , 3 #### [facility] CLIA [id number] [address] [place] [address] [place] Calcium [Mass/Vol] 9.7 mg/dL Normal 8.5-10.2 [facility] Comment on above: Order Comment: Speci men Type: BLOOD SPECIMEN Ordering Facility: [facility] Address: [address] [place] [address] Performed By: #### L IPNF, , 3 #### [facility] CLIA [id number] [address] [place] [address] [place] Chloride [Moles/Vol] 101 mmol/L Normal 98-107 [facility] Comment on above: Order Comment: Speci men Type: BLOOD SPECIMEN Ordering Facility: [facility] Address: [address] [place] [address] Performed By: #### L IPNF, , 3 #### [facility] CLIA [id number] [address] [place] [address] [place] CO2 [Moles/Vol] 29 mmol/L Normal 22-30 [facility] Comment on above: Order Comment: Speci men Type: BLOOD SPECIMEN Ordering Facility: [facility] Address: [address] [place] [address] Performed By: #### L IPNF, , 3015-3 #### [facility] CLIA [id number] [address] [place] [id number] [place] Creatinine [Mass/Vol] 0.80 mg/dL Normal 0.58-0.96 [facility] Comment on above: Order Comment: Nevaeh graves Type: BLOOD SPECIMEN Ordering Facility: [facility] Address: [address] [place] [address] Performed By: #### L IPNF, 86038-5, 3016-3 #### [facility] CLIA [id number] [address] [place], [place] [id number] [facility] Creatinine and Glomerular filtration rate.predicted panel (S/P/Bld) 102 mL/min/1.73m??? Normal >=60 [facility] Comment on above: Order Comment: Nevaeh graves Type: BLOOD SPECIMEN Ordering Facility: [facility] Address: [address] [place] [address] Result Comment: Juana mated Glomerular Filtration Rate (eGFR) is calculated using the 2020 CKD-EPI creatinine equation. This equation utilizes serum creatinine, sex, and age as parameters. The creatinine assay has traceable calibration to isotope dilution-mass spectrometry. Refer to KDIGO guidelines for clinical interpretation. In patients with unstable renal function, e.g. those with acute kidney injury, the eGFR may not accurately reflect actual GFR. Performed By: #### L IPNF, 29786-0, 6-3 #### [facility] CLIA [id number] [address] [place] [address] [place] Glucose [Mass/Vol] 95 mg/dL Normal 74-99 [facility] Comment on above: Order Comment: Nevaeh graves Type: BLOOD SPECIMEN Ordering Facility: [facility] Address: [address] [place] [address] Result Comment: The [place] Diabetes Association (ADA) provides guidance for cutoff values for fasting glucose and random glucose. The ADA defines fasting as no caloric intake for at least 8 hours. Fasting plasma glucose results between 100 to 125 mg/dL indicate increased risk for diabetes (prediabetes). Fasting plasma glucose results greater than or equal to 126 mg/dL meet the criteria for diagnosis of diabetes. In the absence of unequivocal hyperglycemia, results should be confirmed by repeat testing. In a patient with classic symptoms of hyperglycemia or hyperglycemic crisis, random plasma glucose results greater than or equal to 200 mg/dL meet the criteria for diagnosis of diabetes. Reference: Standards of Medical Care in Diabetes 2016, [place] Diabetes Association. Diabetes Care. 2016.39(Suppl 1). Performed By: #### L IPCORA, 03480-3, 6-3 #### [facility] CLIA [id number] [address] [place] [address] [place] Potassium [Moles/Vol] 4.2 mmol/L Normal 3.7-5.1 [facility] Comment on above: Order Comment: Speci men Type: BLOOD SPECIMEN Ordering Facility: [facility] Address: [address] [place], [place] [address] Performed By: #### L IPNF, , 3015-3 #### [facility] CLIA [id number] [address] [place] [address] [place] Protein [Mass/Vol] 7.5 g/dL Normal 6.3-8.0 [facility] Comment on above: Order Comment: Speci men Type: BLOOD SPECIMEN Ordering Facility: [facility] Address: [address] [place] [address] Performed By: #### L IPNF, , 3015-3 #### [facility] CLIA [id number] [address] [place] [address] [place] Sodium [Moles/Vol] 139 mmol/L Normal 136-144 [facility] Comment on above: Order Comment: Speci men Type: BLOOD SPECIMEN Ordering Facility: [facility] Address: [address] [place] [address] Performed By: #### L IPNF, , 3015-3 #### [facility] CLIA [id number] [address] [place] [address] [place] Urea nitrogen [Mass/Vol] 14 mg/dL Normal 7-21 [facility] Comment on above: Order Comment: Speci men Type: BLOOD SPECIMEN Ordering Facility: [facility] Address: [address] [place] [address] Performed By: #### L IPNF, 47618-3, 3016-3 #### [facility] CLIA [id number] [address] [place] [id number] [facility] D dimer FEU PPP-mCncon 08-27 Fibrin D-dimer FEU (PPP) [Mass/Vol] <190 Normal <500 [facility] Comment on above: Order Comment: Speci men Type: BLOOD SPECIMEN Ordering Facility: [facility] Address: [address] [place] [address] Performed By: #### 4 8065-7 #### [facility] CLIA [id number] [address] [place] [id number] [facility] D-DIMEROrdered By: Dai Amador on 08-27-2024 Fibrin D-dimer FEU (PPP) [Mass/Vol] NINF [facility] ECG COMPLETEon 08-27-2024 ECG COMPLETE Ventricular Rate : 77 BPM Atrial Rate : 77 BPM P-R Interval : 154 ms QRS Duration : 76 ms Q-T Interval : 398 ms QTC Calculation(Bazett) : 450 ms Calculated P Hancock : 50 degrees Calculated R Hancock : 68 degrees Calculated T Hancock : 36 degrees NORMAL SINUS RHYTHM NORMAL ECG Confirmed by MD VILLAGOMEZ QARAB ([id number]) on 08/28/2024 9:46:53 AM NAME : KIM LOTT PID : [id number] : 1995 Gender : Female Race : ORD : [id number] Procedure Date : Aug 27 2024 13:15:04 Edit Date : Aug 28 2024 09:46:54 Diagnosis: NORMAL SINUS RHYTHM NORMAL ECG Confirmed by MD VILLAGOMEZ QARAB ([id number]) on 08/28/2024 9:46:53 AM Test Reason : R07.9 Chest pain, unspecified type Location : 185 : [facility] Overread By : MD VILLAGOMEZ QARAB Edited By : MD VILLAGOMEZ QARAB Referred By : , Acquired by : Valentine Brooks [facility] Fibrin D-dimer FEU (PPP) [Ma ss/Vol]Ordered By: Dai Amador on 08-27-2024 Interpretation and review of laboratory results Normal [facility] 500 ng/mL FEU is the D Dimer cutoff to exclude DVT (deep vein thrombosis) and PE (pulmonary embolism) in patients with a low pre test probability. Supplemental Comment: In patients over 50 years with a low pre test probability for DVT and/or PE, an age adjusted D dimer cutoff can be calculated as [age x 10] ng/mL FEU. For example, a patient of 88 years would have an age adjusted D dimer cutoff of 880 ng/mL FEU. For patients with a suspected DVT, a D dimer level below 500 ng/mL FEU has a negative predictive value of >98.9%, a sensitivity of >96.9% and a specificity of >35.7%. For patients with a suspected PE, a D dimer level below 500 ng/mL FEU has a negative predictive value of >98.5%, and a sensitivity of >96.5% and a specificity of >38.8%. Reference: Gus M, et al. MYNOR 2014 311:1117 and Van Olivia N, et al. Adele Int Med 2016 165:253. [facility] LIPID PANEL, NONFASTINGon Cholesterol [Mass/Vol] 165 mg/dL NINF - 200 mg/dL [facility] Comment on above: <200 mg/dL, Desirabl e 200-239 mg/dL, Borderline high >239 mg/dL, High HDL Cholesterol, Nonfasting 69 mg/dL 39 - PINF mg/dL [facility] Comment on above: 40-59 mg/dL, Accepta ble >59 mg/dL, High: Negative risk factor for coronary heart disease <40 mg/dL, Low: Positive risk factor for coronary heart disease LDL Cholesterol, Nonfasting 78 mg/dL NINF - 100 mg/dL [facility] Comment on above: <100 mg/dL, Optimal 100-129 mg/dL, Near optimal/above optimal 130-159 mg/dL, Borderline high 160-189 mg/dL, High >189 mg/dL, Very high Secondary prevention optimal LDL Cholesterol levels are recommended to be < 70 mg/dL LDL/HDL Ratio, Nonfasting 1.13 mg/dL NINF - 2.54 mg/dL [facility] Comment on above: Reference: 1. National Cholesterol Education Program ATP III Guideline At-A-Glance Quick Desk Reference: National Heart, Lung, and Blood [place]. National Institutes of Health. 2001: [facility] Publication No. 01-3305. 2. An International Atherosclerosis Society position paper: global recommendations for the management of dyslipidemia: executive summary, Atherosclerosis. 2014: 232(2):410-413. Non HDL Cholesterol, Nonfasting 96 mg/dL NINF - 130 mg/dL [facility] Comment on above: <130 mg/dL, Optimal 130-159 mg/dL, Near optimal/above optimal 160-189 mg/dL, Borderline high 190-219 mg/dL, High >219 mg/dL, Very high Secondary prevention optimal non HDL Cholesterol levels are recommended to be <100 mg/dL Total Chol/HDL Ratio, Nonfasting 2.39 mg/dL NINF - 5.10 mg/dL [facility] Triglycerides, Nonfasting 88 mg/dL NINF - 150 mg/dL [facility] Comment on above: <150 mg/dL, Normal 150-199 mg/dL, Borderline high 200-499 mg/dL, High >499 mg/dL, Very high VLDL Cholesterol, Nonfasting 18 mg/dL NINF - 30 mg/dL [facility] Cholesterol [Mass/Vol] 165 mg/dL Normal <200 [facility] Comment on above: Order Comment: Speci men Type: BLOOD SPECIMEN Ordering Facility: [facility] Address: [address] [place] [address] Result Comment: <200 mg/dL, Desirable 200-239 mg/dL, Borderline high >239 mg/dL, High Performed By: #### L IPNF, 41873-6, 3016-3 #### [facility] CLIA [id number] [address] [place], [place] [id number] [place] [address] [facility] HDL CHOLESTEROL, NF 69 mg/dL Normal >39 [facility] Comment on above: Order Comment: Speci men Type: BLOOD SPECIMEN Ordering Facility: [facility] Address: [address] [place] [address] Result Comment: 40-5 9 mg/dL, Acceptable >59 mg/dL, High: Negative risk factor for coronary heart disease <40 mg/dL, Low: Positive risk factor for coronary heart disease Performed By: #### L IPNF, 79668-0, 3016-3 #### [facility] CLIA [id number] [address] [place] [address] [facility] LDL CHOLESTEROL, NF 78 mg/dL Normal <100 [facility] Comment on above: Order Comment: Nevaeh graves Type: BLOOD SPECIMEN Ordering Facility: [facility] Address: [address] [place] [address] Result Comment: <100 mg/dL, Optimal 100-129 mg/dL, Near optimal/above optimal 130-159 mg/dL, Borderline high 160-189 mg/dL, High >189 mg/dL, Very high Secondary prevention optimal LDL Cholesterol levels are recommended to be < 70 mg/dL Performed By: #### L IPNF, 40541-8, 3016-3 #### [facility] CLIA [id number] [address] [place], [place] [address] [facility] LDL/HDL RATIO, NF 1.13 mg/dL Normal <2.54 [facility] Comment on above: Order Comment: Nevaeh graves Type: BLOOD SPECIMEN Ordering Facility: [facility] Address: [address] [place] [address] Result Comment: Refricco rence: 1. National Cholesterol Education Program ATP III Guideline At-A-Glance Quick Desk Reference: National Heart, Lung, and Blood [place]. National Institutes of Health. 2001: NIH Publication No. 01-3305. 2. An International Atherosclerosis Society position paper: global recommendations for the management of dyslipidemia: executive summary, Atherosclerosis. 2014: 232(2):410-413. Performed By: #### L IPNF, 86339-4, 3016-3 #### [facility] CLIA [id number] [address] [place], [place] [address] [facility] NON HDL CHOL, NF 96 mg/dL Normal <130 [facility] Comment on above: Order Comment: Nevaeh graves Type: BLOOD SPECIMEN Ordering Facility: [facility] Address: [address] [place] [address] Result Comment: <130 mg/dL, Optimal 130-159 mg/dL, Near optimal/above optimal 160-189 mg/dL, Borderline high 190-219 mg/dL, High >219 mg/dL, Very high Secondary prevention optimal non HDL Cholesterol levels are recommended to be <100 mg/dL Performed By: #### L IPNF, 00877-0, 3016-3 #### [facility] CLIA [id number] [address] [place] [address] [facility] [place] T CHOL/HDL RATIO NF 2.39 mg/dL Normal <5.10 [facility] Comment on above: Order Comment: Nevaeh graves Type: BLOOD SPECIMEN Ordering Facility: [facility] Address: [address] [place] [address] Performed By: #### L IPNF, 76292-3, 3016-3 #### [facility] CLIA [id number] [address] [place] [address] [facility] TRIGLYCERIDES, NF 88 mg/dL Normal <150 [facility] Comment on above: Order Comment: Nevaeh graves Type: BLOOD SPECIMEN Ordering Facility: [facility] Address: [address] [place] [address] Result Comment: <150 mg/dL, Normal 150-199 mg/dL, Borderline high 200-499 mg/dL, High >499 mg/dL, Very high Performed By: #### L IPNF, 33041-7, 6-3 #### [facility] CLIA [id number] [address] [place] [address] [facility] [place] VLDL CHOLESTEROL, NF 18 mg/dL Normal <30 [facility] Comment on above: Order Comment: Nevaeh graves Type: BLOOD SPECIMEN Ordering Facility: [facility] Address: [address] [place] [address] Performed By: #### L IPNF, 84588-7, 3016-3 #### [facility] CLIA [id number] [address] [place] [address] [facility] [place] No Panel Informationon 08-27 Interpretation and review of laboratory results Normal [facility] THYROID STIMULATING HORMONEo n 08-27-2024 TSH Qn 0.797 m[IU]/L [facility] Comment on above: If the patient is pr egnant, TSH reference range varies by gestational period: First Trimester (weeks 9-12): 0.180-2.990 mIU/L Second Trimester: 0.110-3.980 mIU/L Third Trimester: 0.480-4.710 mIU/L Jose Alejandro Roberson et al. A Practical Approach for the Verifications and Determination of Site- and Trimester-Specific Reference Intervals for Thyroid Function tests in . Thyroid, 2019:29:3:412-420. Fahad Gross et al. 2017 Guidelines of the [place] Thyroid Association for the Diagnosis and Management of Thyroid Disease during and the . Thyroid, 2017:27:3:315-389. TSH SerPl-aCncon 08-27-2024 TSH Qn 0.797 m[IU]/L Normal 0.270-4.200 [facility] Comment on above: Order Comment: Speci men Type: BLOOD SPECIMEN Ordering Facility: [facility] Address: [address] [place] [address] [place] [address] Result Comment: If t he patient is , TSH reference range varies by gestational period: First Trimester (weeks 9-12): 0.180-2.990 mIU/L Second Trimester: 0.110-3.980 mIU/L Third Trimester: 0.480-4.710 mIU/L Jose Alejandro Roberson et al. A Practical Approach for the Verifications and Determination of Site- and Trimester-Specific Reference Intervals for Thyroid Function tests in . Thyroid, 2019:29:3:412-420. Fahad Gross et al. 2017 Guidelines of the [place] Thyroid Association for the Diagnosis and Management of Thyroid Disease during and the . Thyroid, 2017:27:3:315-389. Performed By: #### L [facility], 830[address]-0, 3016-3 #### [facility] CLIA [id number] [address] [place] [address] [facility] XR CHEST 2V FRONTAL/LATon XR CHEST 2V FRONTAL/LAT * * *Final Repor t* * * DATE OF EXAM: Aug 27 2024 1:51PM WOX 5291 - XR CHEST 2V FRONTAL/LAT / PROCEDURE REASON: Well adult exam * * * * Physician Interpretation * * * * EXAMINATION: CHEST RADIOGRAPH (2 VIEW FRONTAL and LATERAL) CLINICAL HISTORY: Well adult exam MQ: XC2_6 EXAM DATE/TIME: 08/27/2024 1:51 PM COMPARISON: No relevant prior studies available. RESULT: Lines, tubes, and devices: None. Lungs and pleura: No consolidation. No lung mass. No pleural effusion. No pneumothorax. Cardiomediastinal silhouette: Normal cardiomediastinal silhouette. Bones and soft tissues: Unremarkable. IMPRESSION: No acute radiographic abnormality. Tangled Yarn Worker: PSCEmil Transcribe Date/Time: Aug 27 2024 1:53P Dictated by : HEATHER CROOK MD This examination was interpreted and the report reviewed and electronically signed by: HEATHER CROOK MD on Aug 27 2024 1:54PM EST [id number] CN Normal [facility] XR Chest PA and Lateralon Radiology Study observation (narrative) [facility] IMPRESSION: No acute radiographic abnormality. Tangled Yarn Worker: APOLINAR Transcribe Date/Time: Aug 27 2024 1:53P Dictated by : HEATHER CROOK MD This examination was interpreted and the report reviewed and electronically signed by: HEATHER CROOK MD on Aug 27 2024 1:54PM EST DIVISION OF RADIOLOGY * * *Final Report* * * DATE OF EXAM: Aug 27 2024 1:51PM WOX 5291 - XR CHEST 2V FRONTAL/LAT / PROCEDURE REASON: Well adult exam * * * * Physician Interpretation * * * * EXAMINATION: CHEST RADIOGRAPH (2 VIEW FRONTAL & LATERAL) CLINICAL HISTORY: Well adult exam MQ: XC2_6 EXAM DATE/TIME: 08/27/2024 1:51 PM COMPARISON: No relevant prior studies available. RESULT: Lines, tubes, and devices: None. Lungs and pleura: No consolidation. No lung mass. No pleural effusion. No pneumothorax. Cardiomediastinal silhouette: Normal cardiomediastinal silhouette. Bones and soft tissues: Unremarkable. DIVISION OF RADIOLOGY Provider, [facility] [place] - 08/27/2024 * * *Final Report* * * DATE OF EXAM: Aug 27 2024 1:51PM WOX 5291 - XR CHEST 2V FRONTAL/LAT / PROCEDURE REASON: Well adult exam * * * * Physician Interpretation * * * * EXAMINATION: CHEST RADIOGRAPH (2 VIEW FRONTAL & LATERAL) CLINICAL HISTORY: Well adult exam MQ: XC2_6 EXAM DATE/TIME: 08/27/2024 1:51 PM COMPARISON: No relevant prior studies available. RESULT: Lines, tubes, and devices: None. Lungs and pleura: No consolidation. No lung mass. No pleural effusion. No pneumothorax. Cardiomediastinal silhouette: Normal cardiomediastinal silhouette. Bones and soft tissues: Unremarkable. IMPRESSION IMPRESSION: No acute radiographic abnormality. Tangled Yarn Worker: APOLINAR Transcribe Date/Time: Aug 27 2024 1:53P Dictated by : HEATHER CROOK MD This examination was interpreted and the report reviewed and electronically signed by: HEATHER CROOK MD on Aug 27 2024 1:54PM EST [facility] XR Chest PA and LateralOrder ed By: Ccf Provider on 08-27-2024 [facility] CNOVon 06-05-2024 CNOV Office Visit (INTMWS) KIM LOTT ([id number]) 1995 F Date Time Provider Department 06/05/24 1:20 PM JESICA JOHNSON INTMWS During your visit today, we recorded the following information about you: Temperature Pulse Respiration Blood pressure 100.3 degrees 109/minute 16/minute 101/64 Weight 75.6 kg Jesica Johnson APRN.LAST DIPPER 06/05/2024 2:00 PM Signed SUBJECTIVE Kim Kaylei is a 29 year old female who presents with 2 days of symptoms that are worsening. She reports was seen at [facility] and advised she may have walking pneumonia. Reports she was not provided medication due to breast-feeding. Has bee taking Tylenol for fever. 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 No She reports that she has never smoked. She has never used smokeless tobacco. OBJECTIVE PHYSICAL EXAM: BP 101/64 Pulse 109 Temp 37.9 ?C (100.3 ?F) Resp 16 Wt 75.6 kg (166 lb 10.7 oz) LMP 07/25/2022 SpO2 93% BMI 26.10 kg/m? General appearance: tired/ill appearing, alert, cooperative, pleasant, in no acute distress Head: Normocephalic Eyes: conjunctiva/corneas normal Ears: R TM - clear with good landmarks, nl light reflex, L TM - clear with good landmarks, nl light reflex Nose: clear rhinorrhea, mucosa erythematous and swollen Oropharynx: moist without lesions, teeth in good repair Neck: supple and small, benign anterior cervical nodes bilaterally Heart: regular rate and rhythm, without murmur Lungs: clear to auscultation, without rales or wheeze, good air exchange ASSESSMENT/PLAN (J32.9, J40) Sinobronchitis (primary encounter diagnosis) (R05.1) Acute cough (R50.9) Fever, unspecified fever cause ASSESSMENT/PLAN: 1. Sinobronchitis - ICD9: 473.9, 490, ICD10: J32.9, J40 (primary diagnosis) - AMOXICILLIN 875 MG TABLET - NEILMED NASAFLO PACKET WITH SINUS RINSE DEVICE - XR CHEST 2V FRONTAL/LAT 2. Acute cough - ICD9: 786.2, ICD10: R05.1 - AMOXICILLIN 875 MG TABLET - XR CHEST 2V FRONTAL/LAT 3. Fever, unspecified fever cause - ICD9: 780.60, ICD10: R50.9 - AMOXICILLIN 875 MG TABLET - XR CHEST 2V FRONTAL/LAT Recommend supportive care with plenty of rest and fluids. Tylenol as needed for fever. Amoxicillin for presumed bacterial infection. NeilMed sinus rinse for nasal congestion and drainage. Cough drops for cough. Let us know if not feeling improved with these measures. Chest x-ray is ordered, can complete if needed/not improving . Jesica Johnson APRN.LAST DIPPER Medical Decision Making: Problems: Low: Acute, uncomplicated illness or injury Data: Unique test(s) ordered: 1 Risk: Moderate: Drug management Medical Decision Making Level: 3 - Low Allergies As of Date: 06/05/2024 Noted Allergy Reaction POLLEN EXTRACTS 04/30/2017 14 - Other: See Comments Date Reviewed: 06/05/2024 Reviewed by: Jesica Johnson APRN.LAST DIPPER - Fully Assessed Reason for Visit: Cough [28] Fever [47] Primary Visit Diagnosis:Sinobronch itis [J32.9, J40] Other Visit Diagnoses:Acute cough [R05.1] Fever, unspecified fever cause [R50.9] Order(s):amoxicillin (AMOXIL) 875 mg tabletTake 1 tablet by mouth two times a day for 7 days.Disp: 14 tabletRfl: 0 sod bicarb-sod chlor-neti pot (NEILMED NASAFLO) pkdv1 Packet by sinus irrigation route once daily as needed.Disp: 30 EachRfl: 0 XR CHEST 2V FRONTAL/LAT [[id number]] Order #: [id number] FUTURE Prescriptions as of 06/05/2024 - acetaminophen (TYLENOL EXTRA STRENGTH) 500 mg tablet Take 500 mg by mouth every 8 hours as needed. - amoxicillin (AMOXIL) 875 mg tablet Take 1 tablet by mouth two times a day for 7 days. - sod bicarb-sod chlor-neti pot (NEILMED NASAFLO) pkdv 1 Packet by sinus irrigation route once daily as needed. - Clindamycin-Benzoyl Peroxide 1.2 %(1 % base) -5 % gel APPLY ONCE DAILY TO ALL AREAS OF ACNE AT BEDTIME - WILL BLEACH CLOTHES UNTIL DRY. Problem List As Of Date: 06/05/2024 (None) Prescriptions ordered this encounter Disp Refills Start End AMOXICILLIN 875 MG TABLET 14 t* 0 06/05/2024 06/12/2024 Route: ORAL Sig: Take 1 tablet by mouth two times a day for 7 days. NEILMED NASAFLO PACKET WITH SINUS RI* 30 E* 0 06/05/2024 07/05/2024 Cmt: or generic alternative Route: gabino Si Packet by sinus irrigation route once daily as needed. Level of Service: OFFICE/OUTPATIENT ESTABLISHED LOW MDM 2 (more content not included)... Normal [facility] Fairground Operator Office Visit Reporton 04-01-2024 Fairground Operator Office Visit Report Normal [facility] MR/BMS.BBCon 03-24-2024 MR/BMS.BB Normal [facility] MR/BMS.BBCon 03-17-2024 MR/BMS.BB Normal [facility] MR/BMS.BBCon 03-12-2024 MR/BMS.BB Normal [facility] Fairground Operator Office Visit Reporton 03-04-2024 Fairground Operator Office Visit Report Normal [facility] CBC-Complete Blood Cnt No Di ffon 02-20-2024 Erythrocyte distribution width (RBC) [Ratio] 11.8 % Normal 11.6-14.6 [facility] Comment on above: Order Comment: Comme nts: Day #1Reason for Laboratory Test Performed By: #### L 100.0500 ####[facility] [address] [place], [address] Hematocrit (Bld) [Volume fraction] 30.0 % Low 37-47 [facility] Comment on above: Order Comment: Comme nts: Day #1Reason for Laboratory Test Performed By: #### L 100.0500 ####[facility] [address] [place], [address] Hemoglobin (Bld) [Mass/Vol] 10.0 g/dL Low 12.0-15.0 [facility] Comment on above: Order Comment: Comme nts: Day #1Reason for Laboratory Test Performed By: #### L 100.0500 ####[facility] [address] [place], [address] MCH (RBC) [Entitic mass] 30.4 pg Normal 27.0-32.0 [facility] Comment on above: Order Comment: Comme nts: Day #1Reason for Laboratory Test Performed By: #### L 100.0500 ####[facility] [address] [place], [address] MCHC (RBC) [Mass/Vol] 33.3 g/dL Normal 32-36 [facility] Comment on above: Order Comment: Comme nts: Day #1Reason for Laboratory Test Performed By: #### L 100.0500 ####[facility] [address] [place], [address] MCV (RBC) [Entitic vol] 91.2 fL Normal 81-99 [facility] Comment on above: Order Comment: Comme nts: Day #1Reason for Laboratory Test Performed By: #### L 100.0500 ####[facility] [address] [place], [address] Platelet mean volume (Bld) [Entitic vol] 9.4 fL Normal 6.2-12.0 [facility] Comment on above: Order Comment: Comme nts: Day #1Reason for Laboratory Test Performed By: #### L 100.0500 ####[facility] [address] [place], [address] Platelets (Bld) [#/Vol] 211 10*3/uL Normal 150-450 [facility] Comment on above: Order Comment: Comme nts: Day #1Reason for Laboratory Test Performed By: #### L 100.0500 ####[facility] [address] [place], [address] RBC (Bld) [#/Vol] 3.29 10*6/uL Low 4.2-5.4 [facility] Comment on above: Order Comment: Comme nts: Day #1Reason for Laboratory Test Performed By: #### L 100.0500 ####[facility] [address] [place], [address] RDW SD 39.4 fl Normal 35.1-43.9 [facility] Comment on above: Order Comment: Comme nts: Day #1Reason for Laboratory Test Performed By: #### L 100.0500 ####[facility] [address] [place], [address] WBC (Bld) [#/Vol] 17.9 10*3/uL High 4.4-11.0 [facility] Comment on above: Order Comment: Comme nts: Day #1Reason for Laboratory Test Performed By: #### L 100.0500 ####[facility] [address] [place], [address] (ROM) Rupture Of Membraneson 02-18-2023 ROM Negative Normal Negative [facility] Comment on above: Result Comment: Amni otic fluid not present indicates No Rupture of FetalMembranes at time of specimen collection. Performed By: #### L 205.1000 ####[facility] [address] [place], [address] CBC W/Diff, Automatedon 01-28 Absolute Lymph 1.26 X10 3/uL Normal 0.83-4.51 [facility] Comment on above: Performed By: #### Emil PADILLA, L100.0100 ####[facility] [address] [place], [address] Absolute Neut 8.3 X10 3/uL High 2.0-7.7 [facility] Comment on above: Performed By: #### Emil PADILLA, L100.0100 ####[facility] [address] [place], [address] Basophils/100 WBC (Bld) 0.5 % Normal 0-1 [facility] Comment on above: Performed By: #### B TS, L100.0100 ####[facility] [address] [place], [address] Eosinophils/100 WBC (Bld) 0.3 % Normal 0-5 [facility] Comment on above: Performed By: #### B VALERIE, L100.0100 ####[facility] [address] [place], [address] Erythrocyte distribution width (RBC) [Ratio] 11.9 % Normal 11.6-14.6 [facility] Comment on above: Performed By: #### Emil PADILLA, L100.0100 ####[facility] [address] [place], [address] Hematocrit (Bld) [Volume fraction] 36.4 % Low 37-47 [facility] Comment on above: Performed By: #### Emil PADILLA, L100.0100 ####[facility] [address] [place], [address] Hemoglobin (Bld) [Mass/Vol] 12.1 g/dL Normal 12.0-15.0 [facility] Comment on above: Performed By: #### Emil PADILLA, L100.0100 ####[facility] [address] [place], [address] IG% 1.300 High 0.0-0.9 [facility] Comment on above: Result Comment: IG% - Immature Granulocytes (promyelocytes, myelocytes andmetamyelocytes) > 1% indicates that a LEFT SHIFT is Present. Performed By: #### Emil PADILLA, L100.0100 ####[facility] [address] [place], [address] Lymphocytes/100 WBC (Bld) 11.6 % Low 19-41 [facility] Comment on above: Performed By: #### Emil PADILLA, L100.0100 ####[facility] [address] [place], [address] MCH (RBC) [Entitic mass] 30.6 pg Normal 27.0-32.0 [facility] Comment on above: Performed By: #### Emil PADILLA, L100.0100 ####[facility] [address] [place], [address] MCHC (RBC) [Mass/Vol] 33.2 g/dL Normal 32-36 [facility] Comment on above: Performed By: #### Emil PADILLA, L100.0100 ####[facility] [address] [place], [address] MCV (RBC) [Entitic vol] 91.9 fL Normal 81-99 [facility] Comment on above: Performed By: #### Emil PADILLA, L100.0100 ####[facility] [address] [place], [address] Monocytes/100 WBC (Bld) 9.9 % Normal 0-10 [facility] Comment on above: Performed By: #### Emil PADILLA, L100.0100 ####[facility] [address] [place], [address] Neutrophils/100 WBC (Bld) 76.4 % High 47-70 [facility] Comment on above: Performed By: #### Emil PADILLA, L100.0100 ####[facility] [address] [place], [address] Nucleated RBC (Bld) [#/Vol] 0 10*3/uL Normal 0-5 [facility] Comment on above: Performed By: #### Emil PADILLA, L100.0100 ####[facility] [address] [place], [address] Platelet mean volume (Bld) [Entitic vol] 9.4 fL Normal 6.2-12.0 [facility] Comment on above: Performed By: #### Emil PADILLA, L100.0100 ####[facility] [address] [place], [address] Platelets (Bld) [#/Vol] 256 10*3/uL Normal 150-450 [facility] Comment on above: Performed By: #### Emil PADILLA, L100.0100 ####[facility] [address] [place], [address] RBC (Bld) [#/Vol] 3.96 10*6/uL Low 4.2-5.4 [facility] Comment on above: Performed By: #### Emil PADILLA, L100.0100 ####[facility] [address] [place], [address] RDW SD 40.0 fl Normal 35.1-43.9 [facility] Comment on above: Performed By: #### Emil PADILLA, L100.0100 ####[facility] [address] [place], [address] WBC (Bld) [#/Vol] 10.9 10*3/uL Normal 4.4-11.0 [facility] Comment on above: Performed By: #### Emil PADILLA, L100.0100 ####[facility] [address] 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, [address] [employer] Office Visit Reporton 02-19-2024 Fair[facility] [employer] Office Visit Report Normal [facility] Operative Reporton Operative Report Normal [facility] Type AND Screenon 02-19-2024 Ab SCREEN GEL Negative Normal [facility] Comment on above: Order Comment: SC-SE CTION Performed By: #### Emil PADILLA, L100.0100 ####[facility] [address] [place], [address] Rule out Beta Strep (Grp. B) on 02-13-2024 MARTINA Group B Beta Streptococcus is not isolated. Normal [facility] Comment on above: Performed By: #### M 100.3400 ####[facility] [address] [place], [address] OB Triage Physician Noteon 0 02-12-2024 OB Triage Physician Note Normal [facility] [employer] Office Visit Reporton 02-12-2024 Fair[facility] [employer] Office Visit Report Normal [facility] [employer] Office Visit Reporton 02-11-2024 Fairground [employer] Office Visit Report Normal [facility] [employer] Office Visit Reporton 02-05-2024 Fair[employer] Office Visit Report Normal [facility] (ROM) Rupture Of Membraneson 01-16-2024 ROM Negative Normal Negative [facility] Comment on above: Result Comment: Amni otic fluid not present indicates No Rupture of FetalMembranes at time of specimen collection. Performed By: #### L 205.1000 ####[facility] [address] [facility] [address] OB Triage Progress Noteon OB Triage Progress Note Normal [facility] Urinalysis, Completeon 01-15 BACTERIA 2+ /hpf Normal None Seen [facility] Comment on above: Order Comment: CLEAN CATCH Performed By: #### L 400.0001 ####[facility] [address] [place], [address] WBC 0-5 SEEN Normal 0-5 [facility] Comment on above: Order Comment: CLEAN CATCH Performed By: #### L 400.0001 ####[facility] [address] [place], [address] EPI,SQUAMOUS 0-5 SEEN Normal 5-10 [facility] Comment on above: Order Comment: CLEAN CATCH Performed By: #### L 400.0001 ####[facility] [address] [place], [address] Mucus Ql (Urine sed) 0 SEEN Normal [facility] Comment on above: Order Comment: CLEAN CATCH Performed By: #### L 400.0001 ####[facility] [address] [place], [address] RBC 0 SEEN Normal 0-5 [facility] Comment on above: Order Comment: CLEAN CATCH Performed By: #### L 400.0001 ####[facility] [address] [place], [address] [employer] Office Visit Reporton 01-13-2023 Fairground Operator Office Visit Report Normal [facility] CBC W/Diff, Automatedon Absolute Lymph 1.88 X10 3/uL Normal 0.83-4.51 [facility] Comment on above: Performed By: #### L 100.0100 ####[facility] [address] [place], [address] Absolute Neut 8.0 X10 3/uL High 2.0-7.7 [facility] Comment on above: Performed By: #### L 100.0100 ####[facility] [address] [place], [address] Basophils/100 WBC (Bld) 0.4 % Normal 0-1 [facility] Comment on above: Performed By: #### L 100.0100 ####[facility] [address] [place], [address] Eosinophils/100 WBC (Bld) 0.9 % Normal 0-5 [facility] Comment on above: Performed By: #### L 100.0100 ####[facility] [address] [place], [address] Erythrocyte distribution width (RBC) [Ratio] 11.7 % Normal 11.6-14.6 [facility] Comment on above: Performed By: #### L 100.0100 ####[facility] [address] [place], [address] Hematocrit (Bld) [Volume fraction] 34.2 % Low 37-47 [facility] Comment on above: Performed By: #### L 100.0100 ####[facility] [address] [place], [address] Hemoglobin (Bld) [Mass/Vol] 11.4 g/dL Low 12.0-15.0 [facility] Comment on above: Performed By: #### L 100.0100 ####[facility] [address] [place], [address] IG% 1.200 High 0.0-0.9 [facility] Comment on above: Result Comment: IG% - Immature Granulocytes (promyelocytes, myelocytes andmetamyelocytes) > 1% indicates that a LEFT SHIFT is Present. Performed By: #### L 100.0100 ####[facility] [address] [place], [address] Lymphocytes/100 WBC (Bld) 17.0 % Low 19-41 [facility] Comment on above: Performed By: #### L 100.0100 ####[facility] [address] [place], [address] MCH (RBC) [Entitic mass] 30.9 pg Normal 27.0-32.0 [facility] Comment on above: Performed By: #### L 100.0100 ####[facility] [address] [place], [address] MCHC (RBC) [Mass/Vol] 33.3 g/dL Normal 32-36 [facility] Comment on above: Performed By: #### L 100.0100 ####[facility] [address] [place], [address] MCV (RBC) [Entitic vol] 92.7 fL Normal 81-99 [facility] Comment on above: Performed By: #### L 100.0100 ####[facility] [address] [place], [address] Monocytes/100 WBC (Bld) 8.3 % Normal 0-10 [facility] Comment on above: Performed By: #### L 100.0100 ####[facility] [address] [place], [address] Neutrophils/100 WBC (Bld) 72.2 % High 47-70 [facility] Comment on above: Performed By: #### L 100.0100 ####[facility] [address] [place], [address] Nucleated RBC (Bld) [#/Vol] 0 10*3/uL Normal 0-5 [facility] Comment on above: Performed By: #### L 100.0100 ####[facility] [address] [place], [address] Platelet mean volume (Bld) [Entitic vol] 9.2 fL Normal 6.2-12.0 [facility] Comment on above: Performed By: #### L 100.0100 ####[facility] [address] [place], [address] Platelets (Bld) [#/Vol] 243 10*3/uL Normal 150-450 [facility] Comment on above: Performed By: #### L 100.0100 ####[facility] [address] [place], [address] RBC (Bld) [#/Vol] 3.69 10*6/uL Low 4.2-5.4 [facility] Comment on above: Performed By: #### L 100.0100 ####[facility] [address] [place], [address] RDW SD 39.6 fl Normal 35.1-43.9 [facility] Comment on above: Performed By: #### L 100.0100 ####[facility] [address] [place], [address] WBC (Bld) [#/Vol] 11.1 10*3/uL High 4.4-11.0 [facility] Comment on above: Performed By: #### L 100.0100 ####[facility] [address] [place], [address] Comprehensive Metabolic Prof ilon 01-05-2024 Albumin [Mass/Vol] 2.9 g/dL Low 3.2-5.0 [facility] Comment on above: Performed By: #### L 500.4050 ####[facility] [address] [place], [address] Albumin/Globulin [Mass ratio] 0.7 {ratio} Low 0.9-2.4 [facility] Comment on above: Performed By: #### L 500.4050 ####[facility] [address] [place], [address] ALK P 73 U/L Normal 45-117 [facility] Comment on above: Performed By: #### L 500.4050 ####[facility] [address] [place], [address] ALT [Catalytic activity/Vol] 12 U/L Low 13-56 [facility] Comment on above: Performed By: #### L 500.4050 ####[facility] [address] [place], [address] AST [Catalytic activity/Vol] 16 U/L Normal 15-37 [facility] Comment on above: Performed By: #### L 500.4050 ####[facility] [address] [place], [address] Bilirubin [Mass/Vol] 0.20 mg/dL Normal 0.20-1.00 [facility] Comment on above: Result Comment: For patients on eltrombopag therapy, use of Dimension [place] TBIL is not recommended. Performed By: #### L 500.4050 ####[facility] [address] [place], [address] BUN/CRE 13.0 RATIO Normal 10-20 [facility] Comment on above: Performed By: #### L 500.4050 ####[facility] [address] [place], [address] CA,Total 8.9 mg/dL Normal 8.5-10.1 [facility] Comment on above: Performed By: #### L 500.4050 ####[facility] [address] [place], [address] Chloride [Moles/Vol] 106 mmol/L Normal 98-107 [facility] Comment on above: Performed By: #### L 500.4050 ####[facility] [address] [place], [address] CO2 [Moles/Vol] 23.0 mmol/L Normal 21.0-32.0 [facility] Comment on above: Performed By: #### L 500.4050 ####[facility] [address] [place], [address] Creatinine [Mass/Vol] 0.54 mg/dL Low 0.55-1.02 [facility] Comment on above: Result Comment: The validity of the calculated GFR GFRAA in patients over70 years has not been determined. Clinical correlation isessential. Performed By: #### L 500.4050 ####[facility] [address] [place], [address] ECRCL 168.75 ml/min Normal [facility] Comment on above: Performed By: #### L 500.4050 ####[facility] [address] [place], [address] EST GFR - AA 173 mL/min Normal >60 [facility] Comment on above: Result Comment: Afri can [place] GFR Calc Performed By: #### L 500.4050 ####[facility] [address] [place], [address] GAP 8 Normal 5-15 [facility] Comment on above: Performed By: #### L 500.4050 ####[facility] [address] [place], [address] GFR/1.73 sq M.predicted among non-blacks MDRD (S/P/Bld) [Vol rate/Area] 143 mL/min/{1.73_m2} Normal >60 [facility] Comment on above: Result Comment: Non- GFR Calc Performed By: #### L 500.4050 ####[facility] [address] [place], [address] Globulin (S) [Mass/Vol] 3.9 g/dL Normal 2.2-4.2 [facility] Comment on above: Performed By: #### L 500.4050 ####[facility] [address] [place], [address] Glucose [Mass/Vol] 96 mg/dL Normal 74-106 [facility] Comment on above: Performed By: #### L 500.4050 ####[facility] [address] [place], [address] Potassium [Moles/Vol] 3.4 mmol/L Low 3.5-5.1 [facility] Comment on above: Performed By: #### L 500.4050 ####[facility] [address] [place], [address] Sodium [Moles/Vol] 137 mmol/L Normal 136-145 [facility] Comment on above: Performed By: #### L 500.4050 ####[facility] [address] [place], [address] T PROT 6.8 g/dL Normal 6.4-8.2 [facility] Comment on above: Performed By: #### L 500.4050 ####[facility] [address] [place], [address] Urea nitrogen [Mass/Vol] 7 mg/dL Normal 7-18 [facility] Comment on above: Performed By: #### L 500.4050 ####[facility] [address] [place], [address] OB Triage Physician Noteon 0 01-05-2024 OB Triage Physician Note Normal [facility] Urinalysis, Completeon 01-04 AMORPHOUS 2+ Normal [facility] Comment on above: Order Comment: COLLE CTOR TO SPECIFY Performed By: #### L 400.0001 ####[facility] [address] [place], [address] EPI,SQUAMOUS 5-10 SEEN Normal 5-10 [facility] Comment on above: Order Comment: COLLE CTOR TO SPECIFY Performed By: #### L 400.0001 ####[facility] [address] [place], [address] Mucus Ql (Urine sed) RARE Normal [facility] Comment on above: Order Comment: JANE CTOR TO SPECIFY Performed By: #### L 400.0001 ####[facility] [address] [place], [address] BACTERIA 0 SEEN Normal None Seen [facility] Comment on above: Order Comment: COLLE CTOR TO SPECIFY Performed By: #### L 400.0001 ####[facility] [address] [place], [address] RBC 0 SEEN Normal 0-5 [facility] Comment on above: Order Comment: JANE CTOR TO SPECIFY Performed By: #### L 400.0001 ####[facility] [address] [place], [address] WBC 0 SEEN Normal 0-5 [facility] Comment on above: Order Comment: COLLE CTOR TO SPECIFY Performed By: #### L 400.0001 ####[facility] [address] [place], [address] [employer] Office Visit Reporton 12-27-2023 Fairground Operator Office Visit Report Normal [facility] Urine Cultureon 12-13-2023 URC Below infection level. Coag Negative Staph [place] Count <1000 Normal [facility] Comment on above: Performed By: #### M 100.2200 ####[facility] [address] [place], [place], [address] [employer] Office Visit Reporton 12-11-2023 Fairground Operator Office Visit Report Normal [facility] Absolute lymphocyte countOrd ered By: Nicolle Lagos on 12-03-2023 Lymphocytes Auto (Unsp spec) [#/Vol] 1.45 10*3/uL 0.83-4.51 [facility] Automated lymphocyte count a s percentage of total leukocytesOrdered By: Nicolle Lagos on 12-03-2023 Lymphocytes/100 WBC Auto (Unsp spec) 15.8 % 19-41 [facility] Basophil percentageOrdered B y: Nicolle Lagos on 12-03-2023 Basophils/100 WBC (Bld) 0.5 % 0-1 [facility] Eosinophils/100 WBC (Bld) 0.7 % 0-5 [facility] Hemoglobin (Bld) [Mass/Vol] 11.3 g/dL 12.0-15.0 [facility] Monocytes/100 WBC (Bld) 8.9 % 0-10 [facility] Neutrophils (Bld) [#/Vol] 6.7 10*3/uL 2.0-7.7 [facility] Neutrophils/100 WBC (Bld) 73.2 % 47-70 [facility] WBC (Bld) [#/Vol] 9.2 10*3/uL 4.4-11.0 [facility] CBC W/Diff, Automatedon Absolute Lymph 1.45 X10 3/uL Normal 0.83-4.51 [facility] Comment on above: Performed By: #### L 3890.6005, L100.0100, L501.0250, L509.8000 ####[facility] [address] [place], [address] Absolute Neut 6.7 X10 3/uL Normal 2.0-7.7 [facility] Comment on above: Performed By: #### L 3890.6005, L100.0100, L501.0250, L509.8000 ####[facility] [address] [place], [address] Basophils/100 WBC (Bld) 0.5 % Normal 0-1 [facility] Comment on above: Performed By: #### L 3890.6005, L100.0100, L501.0250, L509.8000 ####[facility] [address] [place], [address] Eosinophils/100 WBC (Bld) 0.7 % Normal 0-5 [facility] Comment on above: Performed By: #### L 3890.6005, L100.0100, L501.0250, L509.8000 ####[facility] [address] [place], [address] Erythrocyte distribution width (RBC) [Ratio] 12.0 % Normal 11.6-14.6 [facility] Comment on above: Performed By: #### L 3890.6005, L100.0100, L501.0250, L509.8000 ####[facility] [address] [place], [address] Hematocrit (Bld) [Volume fraction] 34.6 % Low 37-47 [facility] Comment on above: Performed By: #### L 3890.6005, L100.0100, L501.0250, L509.8000 ####[facility] [address] [place], [address] Hemoglobin (Bld) [Mass/Vol] 11.3 g/dL Low 12.0-15.0 [facility] Comment on above: Performed By: #### L 3890.6005, L100.0100, L501.0250, L509.8000 ####[facility] [address] [place], [address] IG% 0.900 Normal 0.0-0.9 [facility] Comment on above: Result Comment: IG% - Immature Granulocytes (promyelocytes, myelocytes andmetamyelocytes) > 1% indicates that a LEFT SHIFT is Present. Performed By: #### L 3890.6005, L100.0100, L501.0250, L509.8000 ####[facility] [address] [place], [address] Lymphocytes/100 WBC (Bld) 15.8 % Low 19-41 [facility] Comment on above: Performed By: #### L 3890.6005, L100.0100, L501.0250, L509.8000 ####[facility] [address] [place], [address] MCH (RBC) [Entitic mass] 30.5 pg Normal 27.0-32.0 [facility] Comment on above: Performed By: #### L 3890.6005, L100.0100, L501.0250, L509.8000 ####[facility] [address] [place], [address] MCHC (RBC) [Mass/Vol] 32.7 g/dL Normal 32-36 [facility] Comment on above: Performed By: #### L 3890.6005, L100.0100, L501.0250, L509.8000 ####[facility] [address] [place], [address] MCV (RBC) [Entitic vol] 93.3 fL Normal 81-99 [facility] Comment on above: Performed By: #### L 3890.6005, L100.0100, L501.0250, L509.8000 ####[facility] [address] [place], [address] Monocytes/100 WBC (Bld) 8.9 % Normal 0-10 [facility] Comment on above: Performed By: #### L 3890.6005, L100.0100, L501.0250, L509.8000 ####[facility] [address] [place], [address] Neutrophils/100 WBC (Bld) 73.2 % High 47-70 [facility] Comment on above: Performed By: #### L 3890.6005, L100.0100, L501.0250, L509.8000 ####[facility] [address] [place], [address] Nucleated RBC (Bld) [#/Vol] 0 10*3/uL Normal 0-5 [facility] Comment on above: Performed By: #### L 3890.6005, L100.0100, L501.0250, L509.8000 ####[facility] [address] [place], [address] Platelet mean volume (Bld) [Entitic vol] 8.6 fL Normal 6.2-12.0 [facility] Comment on above: Performed By: #### L 3890.6005, L100.0100, L501.0250, L509.8000 ####[facility] [address] [place], [address] Platelets (Bld) [#/Vol] 230 10*3/uL Normal 150-450 [facility] Comment on above: Performed By: #### L 3890.6005, L100.0100, L501.0250, L509.8000 ####[facility] [address] [place], [address] RBC (Bld) [#/Vol] 3.71 10*6/uL Low 4.2-5.4 [facility] Comment on above: Performed By: #### L 3890.6005, L100.0100, L501.0250, L509.8000 ####[facility] [address] [place], [address] RDW SD 40.9 fl Normal 35.1-43.9 [facility] Comment on above: Performed By: #### L 3890.6005, L100.0100, L501.0250, L509.8000 ####[facility] [address] [place], [address] WBC (Bld) [#/Vol] 9.2 10*3/uL Normal 4.4-11.0 [facility] Comment on above: Performed By: #### L 3890.6005, L100.0100, L501.0250, L509.8000 ####[facility] [address] [place], [place], [id number] Determination of erythrocyte mean corpuscular volume (MCV)Ordered By: Nicolle Lagos on 12-03-2023 MCV (RBC) [Entitic vol] 93.3 fL 81-99 [facility] Erythrocyte distribution wid th ratioOrdered By: Nicolle Lagos on 12-03-2023 Erythrocyte distribution width (RBC) [Ratio] 12.0 % 11.6-14.6 [facility] Erythrocyte distribution wid th standard deviationOrdered By: Nicolle Lagos on 12-03-2023 Erythrocyte distribution width (RBC) [Entitic vol] 40.9 fL 35.1-43.9 [facility] Gestational diabetes screen 1-hour screen with 50g oral glucose loadOrdered By: Nicolle Lagos on 12-03-2023 Glucose 1 Hr post 50 g glucose PO [Mass/Vol] 109 mg/dL 70-140 [facility] Glucose Challenge Gest 1H 50 nirali 12-03-2023 GLU GEST 50g 1H 109 mg/dL Normal 70-140 [facility] Comment on above: Performed By: #### L 3890.6005, L100.0100, L501.0250, L509.8000 ####[facility] [address] [place], [address] HIV - WCHon 12-03-2023 HIV Non-Reactive Normal Nonreactive [facility] Comment on above: Performed By: #### L 3890.6005, L100.0100, L501.0250, L509.8000 ####[facility] [address] [place], [address] HIV 1 and HIV-2 antibody ass ay with HIV-1 p24 antigen detectionOrdered By: Nicolle Lagos on 12-03-2023 HIV 1+2 Ab+HIV1 p24 Ag IA Ql Non-Reactive Nonreactive [facility] Hematocrit Auto (Bld) [Volum e fraction]Ordered By: Nicolle Lagos on 12-03-2023 Hematocrit (Bld) [Volume fraction] 34.6 % 37-47 [facility] Immature granulocytes/100 WB C Auto (Bld)Ordered By: Nicolle Lagos on 12-03-2023 Immature granulocytes/100 WBC (Bld) 0.900 % 0.0-0.9 [facility] Comment on above: IG% - Immature Granu locytes (promyelocytes, myelocytes and metamyelocytes) > 1% indicates that a LEFT SHIFT is Present. L509.8000on 12-03-2023 Syphilis Abs Non-Reactive Normal [facility] Comment on above: Performed By: #### L 3890.6005, L100.0100, L501.0250, L509.8000 ####[facility] [address] [place], [place], [id number] Laboratory - Hematology and Cell countsOrdered By: Nicolle Lagos on 12-03-2023 MCH (RBC) [Entitic mass] 30.5 pg 27.0-32.0 [facility] MCHC (RBC) [Mass/Vol] 32.7 g/dL 32-36 [facility] Nucleated RBC/100 WBC (Bld) [Ratio] 0 % 0-5 [facility] Platelet mean volume (Bld) [Entitic vol] 8.6 fL 6.2-12.0 [facility] Platelets (Bld) [#/Vol] 230 10*3/uL 150-450 [facility] [employer] Office Visit Reporton 12-03-2023 [facility] Office Visit Report Normal [facility] RBC Auto (Bld) [#/Vol]Ordere d By: Nicolle Yolis on 12-03-2023 RBC (Bld) [#/Vol] 3.71 10*6/uL 4.2-5.4 [facility] Serum Treponema species anti body detectionOrdered By: Nicolle Lagos on 12-03-2023 Treponema sp Ab Ql (S) Non-Reactive [facility] Laboratory - Chemistry and C hemistry - challengeon 11-05-2023 Glucose Ql (U) Negative [facility] Laboratory - Urinalysison Protein Ql (U) Negative [facility] Office Visit Reporton 11-05-2023 [facility] Office Visit Report Normal [facility] Office Visit Reporton 10-11-2023 [facility] Office Visit Report Normal [facility] Laboratory - Chemistry and C hemistry - challengeon 10-04-2023 Glucose Ql (U) Negative [facility] Laboratory - Urinalysison Protein Ql (U) Negative [facility] Office Visit Reporton 10-04-2023 [facility] Office Visit Report Normal [facility] Laboratory - Chemistry and C hemistry - challengeon 09-27-2023 Glucose Ql (U) Negative [facility] Laboratory - Urinalysison Protein Ql (U) Negative [facility] Office Visit Reporton 09-27-2023 [facility] Office Visit Report Normal [facility] Genital Culture Comprehensiv jose a 09-23-2023 VAC Reason for Exam: Vaginal Discharge Vaginal Discharge Normal vaginal césar isolated. No yeast, Gardnerella, Neisseria or beta-hemolytic Streptococcus isolated. Normal [facility] Comment on above: Performed By: #### M 100.2000, M100.3200 ####[facility] [address] [place], [address] Urine Cultureon 09-22-2023 URC Culture exhibits no growth. Normal [facility] Comment on above: Performed By: #### M 100.2200 ####[facility] [address] [place], [place], [address] Culture, urineOrdered By: Lupe Herrera on 09-21-2023 Bacteria identified Cx Nom (U) Culture exhibits no growth. [facility] Bacteria identified Cx Nom (U) Culture exhibits no growth. [facility] Gram Stainon 09-21-2023 GS Reason for Exam: Vaginal Discharge Vaginal Discharge Gram Stain 2+ Epithelial cells 3+ Gram positive rods No Gram negative diplococci Score = 1 Interpretation: 0-3 Normal, 4-6 Intermediate, 7-10 Positive BV Normal [facility] Comment on above: Performed By: #### M 100.2000, M100.3200 ####[facility] [address] [place], [place], [address] Gram stain for investigation of transfusion reactionOrdered By: Roger Marshall on 09-21-2023 Microscopic observation Gram stain Nom (Unsp spec) [facility] Microscopic observation Gram stain Nom (Unsp spec) [facility] Laboratory - Chemistry and C hemistry - challengeon 09-21-2023 Glucose Ql (U) Negative [facility] Laboratory - Urinalysison Protein Ql (U) Negative [facility] No Panel InformationOrdered By: Roger Marshall on 09-21-2023 Genital Culture [facility] Genital Culture [facility] No Panel Informationon 09-21 POC Bacterial Vaginitis (Rapid) Negative [facility] Office Visit Reporton 09-21-2023 [facility] Office Visit Report Normal [facility] Laboratory - Chemistry and C hemistry - challengeon 09-12-2023 Glucose Ql (U) Negative [facility] Laboratory - Urinalysison Protein Ql (U) Negative [facility] Office Visit Reporton 09-12-2023 [facility] Office Visit Report Normal [facility] Genital Culture Comprehensiv jose a 08-31-2023 VAC Normal vaginal césar isolated. No yeast, Gardnerella, Neisseria or beta-hemolytic Streptococcus isolated. Normal [facility] Comment on above: Performed By: #### M 100.3200, M100.1999 ####[facility] [address] [place], [address] Gram Stainon 08-28-2023 GS Gram Stain 4+ Gram positive rods 1+ Epithelial cells No Gram negative diplococci 2+ White Blood Cells Score = 0 Interpretation: 0-3 Normal, 4-6 Intermediate, 7-10 Positive BV Normal [facility] Comment on above: Performed By: #### M 100.3200, M1 ####[facility] [address] [place], [address] Gram stain for investigation of transfusion reactionOrdered By: Roger Marshall on 08-28-2023 Microscopic observation Gram stain Nom (Unsp spec) [facility] Microscopic observation Gram stain Nom (Unsp spec) [facility] Laboratory - Chemistry and C hemistry - challengeon 08-28-2023 Glucose Ql (U) Negative [facility] Laboratory - Urinalysison Protein Ql (U) Negative [facility] No Panel InformationOrdered By: Roger Marshall on 08-28-2023 Genital Culture [facility] Genital Culture [facility] No Panel Informationon 08-28 POC Bacterial Vaginitis (Rapid) Negative [facility] Office Visit Reporton 08-28-2023 [facility] Office Visit Report Normal [facility] Absolute lymphocyte countOrd ered By: Nicolle Martinez on 08-18-2023 Lymphocytes Auto (Unsp spec) [#/Vol] 1.73 10*3/uL 0.83-4.51 [facility] Automated lymphocyte count a s percentage of total leukocytesOrdered By: Nicolle Martinez on 08-18-2023 Lymphocytes/100 WBC Auto (Unsp spec) 24.7 % 19-41 [facility] Basic Metabolic Profile (BMP )on 08-18-2023 BUN/CRE 15.0 RATIO Normal - [facility] Comment on above: Performed By: #### L 100.0100, L501.2450, L500.3400, L500.2500 ####[facility] [address] [place], [address] CA,Total 9.4 mg/dL Normal 8.5-10.1 [facility] Comment on above: Performed By: #### L 100.0100, L501.2450, L500.3400, L500.2500 ####[facility] [address] [place], [address] Chloride [Moles/Vol] 105 mmol/L Normal 98-107 [facility] Comment on above: Performed By: #### L 100.0100, L501.2450, L500.3400, L500.2500 ####[facility] [address] [place], [address] CO2 [Moles/Vol] 27.0 mmol/L Normal 21.0-32.0 [facility] Comment on above: Performed By: #### L 100.0100, L501.2450, L500.3400, L500.2500 ####[facility] [address] [place], [address] Creatinine [Mass/Vol] 0.53 mg/dL Low 0.55-1.02 [facility] Comment on above: Result Comment: The validity of the calculated GFR GFRAA in patients over70 years has not been determined. Clinical correlation isessential. Performed By: #### L 100.0100, L501.2450, L500.3400, L500.2500 ####[facility] [address] [place], [address] ECRCL 153.68 ml/min Normal [facility] Comment on above: Performed By: #### L 100.0100, L501.2450, L500.3400, L500.2500 ####[facility] [address] [place], [address] EST GFR - AA 175 mL/min Normal >60 [facility] Comment on above: Result Comment: Afri can [place] GFR Calc Performed By: #### L 100.0100, L501.2450, L500.3400, L500.2500 ####[facility] [address] [place], [address] GAP 4 Low 5-15 [facility] Comment on above: Performed By: #### L 100.0100, L501.2450, L500.3400, L500.2500 ####[facility] [address] [place], [address] GFR/1.73 sq M.predicted among non-blacks MDRD (S/P/Bld) [Vol rate/Area] 144 mL/min/{1.73_m2} Normal >60 [facility] Comment on above: Result Comment: Non- GFR Calc Performed By: #### L 100.0100, L501.2450, L500.3400, L500.2500 ####[facility] [address] [place], [address] Glucose [Mass/Vol] 104 mg/dL Normal 74-106 [facility] Comment on above: Result Comment: Fast ing Glucose result from 100 to 125 mg/dLsuggests IMPAIRED HOMEOSTASIS per A.D.A. criteria. Performed By: #### L 100.0100, L501.2450, L500.3400, L500.2500 ####[facility] [address] [place], [address] Potassium [Moles/Vol] 3.6 mmol/L Normal 3.5-5.1 [facility] Comment on above: Performed By: #### L 100.0100, L501.2450, L500.3400, L500.2500 ####[facility] [address] [place], [address] Sodium [Moles/Vol] 136 mmol/L Normal 136-145 [facility] Comment on above: Performed By: #### L 100.0100, L501.2450, L500.3400, L500.2500 ####[facility] [address] [place], [address] Urea nitrogen [Mass/Vol] 8 mg/dL Normal 7-18 [facility] Comment on above: Performed By: #### L 100.0100, L501.2450, L500.3400, L500.2500 ####[facility] [address] [place], [address] Basophil percentageOrdered B y: Nicolle Martinez on 08-18-2023 Basophils/100 WBC (Bld) 0.6 % 0-1 [facility] Bilirubin [Mass/Vol] 0.40 mg/dL 0.20-1.00 [facility] Comment on above: For patients on eltr ombopag therapy, use of Dimension [place] TBIL is not recommended. Chloride [Moles/Vol] 105 mmol/L 98-107 [facility] Eosinophils/100 WBC (Bld) 1.4 % 0-5 [facility] Glucose [Mass/Vol] 104 mg/dL 74-106 [facility] Comment on above: Fasting Glucose resu lt from 100 to 125 mg/dL suggests IMPAIRED HOMEOSTASIS per A.D.A. criteria. Hemoglobin (Bld) [Mass/Vol] 12.0 g/dL 12.0-15.0 [facility] Monocytes/100 WBC (Bld) 9.8 % 0-10 [facility] Neutrophils (Bld) [#/Vol] 4.4 10*3/uL 2.0-7.7 [facility] Neutrophils/100 WBC (Bld) 63.2 % 47-70 [facility] Potassium [Moles/Vol] 3.6 mmol/L 3.5-5.1 [facility] Protein [Mass/Vol] 7.0 g/dL 6.4-8.2 [facility] Sodium [Moles/Vol] 136 mmol/L 136-145 [facility] WBC (Bld) [#/Vol] 7.0 10*3/uL 4.4-11.0 [facility] Basophil percentage 0-5 SEEN /hpf 0-5 [facility] Bilirubin Test strip Ql (U)O rdered By: Nicolle Martinez on 08-18-2023 Bilirubin Ql (U) Negative Negative [facility] CBC W/Diff, Automatedon 07-31 Absolute Lymph 1.73 X10 3/uL Normal 0.83-4.51 [facility] Comment on above: Performed By: #### L 100.0100, L501.2450, L500.3400, L500.2500 ####[facility] [address] [place], [address] Absolute Neut 4.4 X10 3/uL Normal 2.0-7.7 [facility] Comment on above: Performed By: #### L 100.0100, L501.2450, L500.3400, L500.2500 ####[facility] [address] [place], [address] Basophils/100 WBC (Bld) 0.6 % Normal 0-1 [facility] Comment on above: Performed By: #### L 100.0100, L501.2450, L500.3400, L500.2500 ####[facility] [address] [place], [address] Eosinophils/100 WBC (Bld) 1.4 % Normal 0-5 [facility] Comment on above: Performed By: #### L 100.0100, L501.2450, L500.3400, L500.2500 ####[facility] [address] [place], [address] Erythrocyte distribution width (RBC) [Ratio] 12.0 % Normal 11.6-14.6 [facility] Comment on above: Performed By: #### L 100.0100, L501.2450, L500.3400, L500.2500 ####[facility] [address] [place], [address] Hematocrit (Bld) [Volume fraction] 36.5 % Low 37-47 [facility] Comment on above: Performed By: #### L 100.0100, L501.2450, L500.3400, L500.2500 ####[facility] [address] [place], [address] Hemoglobin (Bld) [Mass/Vol] 12.0 g/dL Normal 12.0-15.0 [facility] Comment on above: Performed By: #### L 100.0100, L501.2450, L500.3400, L500.2500 ####[facility] [address] [place], [address] IG% 0.300 Normal 0.0-0.9 [facility] Comment on above: Result Comment: IG% - Immature Granulocytes (promyelocytes, myelocytes andmetamyelocytes) > 1% indicates that a LEFT SHIFT is Present. Performed By: #### L 100.0100, L501.2450, L500.3400, L500.2500 ####[facility] [address] [place], [address] Lymphocytes/100 WBC (Bld) 24.7 % Normal 19-41 [facility] Comment on above: Performed By: #### L 100.0100, L501.2450, L500.3400, L500.2500 ####[facility] [address] [place], [address] MCH (RBC) [Entitic mass] 29.9 pg Normal 27.0-32.0 [facility] Comment on above: Performed By: #### L 100.0100, L501.2450, L500.3400, L500.2500 ####[facility] [address] [place], [address] MCHC (RBC) [Mass/Vol] 32.9 g/dL Normal 32-36 [facility] Comment on above: Performed By: #### L 100.0100, L501.2450, L500.3400, L500.2500 ####[facility] [address] [place], [address] MCV (RBC) [Entitic vol] 90.8 fL Normal 81-99 [facility] Comment on above: Performed By: #### L 100.0100, L501.2450, L500.3400, L500.2500 ####[facility] [address] [place], [address] Monocytes/100 WBC (Bld) 9.8 % Normal 0-10 [facility] Comment on above: Performed By: #### L 100.0100, L501.2450, L500.3400, L500.2500 ####[facility] [address] [place], [address] Neutrophils/100 WBC (Bld) 63.2 % Normal 47-70 [facility] Comment on above: Performed By: #### L 100.0100, L501.2450, L500.3400, L500.2500 ####[facility] [address] [place], [address] Nucleated RBC (Bld) [#/Vol] 0 10*3/uL Normal 0-5 [facility] Comment on above: Performed By: #### L 100.0100, L501.2450, L500.3400, L500.2500 ####[facility] [address] [place], [address] Platelet mean volume (Bld) [Entitic vol] 8.9 fL Normal 6.2-12.0 [facility] Comment on above: Performed By: #### L 100.0100, L501.2450, L500.3400, L500.2500 ####[facility] [address] [place], [address] Platelets (Bld) [#/Vol] 234 10*3/uL Normal 150-450 [facility] Comment on above: Performed By: #### L 100.0100, L501.2450, L500.3400, L500.2500 ####[facility] [address] [place], [address] RBC (Bld) [#/Vol] 4.02 10*6/uL Low 4.2-5.4 [facility] Comment on above: Performed By: #### L 100.0100, L501.2450, L500.3400, L500.2500 ####[facility] [address] [place], [address] RDW SD 40.0 fl Normal 35.1-43.9 [facility] Comment on above: Performed By: #### L 100.0100, L501.2450, L500.3400, L500.2500 ####[facility] [address] [place], [address] WBC (Bld) [#/Vol] 7.0 10*3/uL Normal 4.4-11.0 [facility] Comment on above: Performed By: #### L 100.0100, L501.2450, L500.3400, L500.2500 ####[facility] [address] [place], [address] Determination of erythrocyte mean corpuscular volume (MCV)Ordered By: Nicolle Martniez on 08-18-2023 MCV (RBC) [Entitic vol] 90.8 fL 81-99 [facility] Direct bilirubinOrdered By: Nicolle Martinez on 08-18-2023 Bilirubin.direct [Mass/Vol] 0.12 mg/dL 0.00-0.30 [facility] Emergency Department Summary on 08-18-2023 Emergency Department Summary Normal [facility] Erythrocyte distribution wid th ratioOrdered By: Nicolle Martinez on 08-18-2023 Erythrocyte distribution width (RBC) [Ratio] 12.0 % 11.6-14.6 [facility] Erythrocyte distribution wid th standard deviationOrdered By: Nicolle Martinez on 08-18-2023 Erythrocyte distribution width (RBC) [Entitic vol] 40.0 fL 35.1-43.9 [facility] Hematocrit Auto (Bld) [Volum e fraction]Ordered By: Nicolle Martinez on 08-18-2023 Hematocrit (Bld) [Volume fraction] 36.5 % 37-47 [facility] Immature granulocytes/100 WB C Auto (Bld)Ordered By: Nicolle Martinez on 08-18-2023 Immature granulocytes/100 WBC (Bld) 0.300 % 0.0-0.9 [facility] Comment on above: IG% - Immature Granu locytes (promyelocytes, myelocytes and metamyelocytes) > 1% indicates that a LEFT SHIFT is Present. Ketones Test strip Ql (U)Ord ered By: Nicolle Martinez on 08-18-2023 Ketones Ql (U) Negative Negative [facility] Laboratory - Chemistry and C hemistry - challengeOrdered By: Nicolle Martinez on 08-18-2023 ALP [Catalytic activity/Vol] 46 U/L 45-117 [facility] ALT [Catalytic activity/Vol] 9 U/L 13-56 [facility] CO2 [Moles/Vol] 27.0 mmol/L 21.0-32.0 [facility] Globulin (S) [Mass/Vol] 3.7 g/dL 2.2-4.2 [facility] Lipase [Catalytic activity/Vol] 41 U/L 13-75 [facility] Comment on above: Please note:LIPASE r evised reference range effective 22. New Lipase methodology. Expected to produce lower values than the previous assay method. NEW Reference Range: 13 - 75 U/L Urea nitrogen/Creatinine [Mass ratio] 15.0 mg/mg 10-20 [facility] Laboratory - Hematology and Cell countsOrdered By: Nicolle Martinez on 08-18-2023 MCH (RBC) [Entitic mass] 29.9 pg 27.0-32.0 [facility] MCHC (RBC) [Mass/Vol] 32.9 g/dL 32-36 [facility] Nucleated RBC/100 WBC (Bld) [Ratio] 0 % 0-5 [facility] Platelets (Bld) [#/Vol] 234 10*3/uL 150-450 [facility] Lipaseon 08-18-2023 Lipase [Catalytic activity/Vol] 41 U/L Normal 13-75 [facility] Comment on above: Result Comment: Thompson moreira note:LIPASE revised reference range effective 22.New Lipase methodology. Expected to produce lower valuesthan the previous assay method.NEW Reference Range: 13 - 75 U/L Performed By: #### L 100.0100, L501.2450, L500.3400, L500.2500 ####[facility] [address] [place], [address] Liver Profileon 08-18-2023 Albumin [Mass/Vol] 3.3 g/dL Normal 3.2-5.0 [facility] Comment on above: Performed By: #### L 100.0100, L501.2450, L500.3400, L500.2500 ####[facility] [address] [place], [address] ALK P 46 U/L Normal 45-117 [facility] Comment on above: Performed By: #### L 100.0100, L501.2450, L500.3400, L500.2500 ####[facility] [address] [place], [address] ALT [Catalytic activity/Vol] 9 U/L Low 13-56 [facility] Comment on above: Performed By: #### L 100.0100, L501.2450, L500.3400, L500.2500 ####[facility] [address] [place], [address] AST [Catalytic activity/Vol] 10 U/L Low 15-37 [facility] Comment on above: Performed By: #### L 100.0100, L501.2450, L500.3400, L500.2500 ####[facility] [address] [place], [address] Bilirubin [Mass/Vol] 0.40 mg/dL Normal 0.20-1.00 [facility] Comment on above: Result Comment: For patients on eltrombopag therapy, use of Dimension [place] TBIL is not recommended. Performed By: #### L 100.0100, L501.2450, L500.3400, L500.2500 ####[facility] [address] [place], [address] Bilirubin.direct [Mass/Vol] 0.12 mg/dL Normal 0.00-0.30 [facility] Comment on above: Performed By: #### L 100.0100, L501.2450, L500.3400, L500.2500 ####[facility] [address] [place], [address] Globulin (S) [Mass/Vol] 3.7 g/dL Normal 2.2-4.2 [facility] Comment on above: Performed By: #### L 100.0100, L501.2450, L500.3400, L500.2500 ####[facility] [address] [place], [address] T PROT 7.0 g/dL Normal 6.4-8.2 [facility] Comment on above: Performed By: #### L 100.0100, L501.2450, L500.3400, L500.2500 ####[facility] [address] [place], [address] Mucus LM Ql (Urine sed)Order ed By: Nicolle Martinez on 08-18-2023 Mucus Ql (Urine sed) RARE /hpf [facility] Nitrite Test strip Ql (U)Ord ered By: Nicolle Martinez on 08-18-2023 Nitrite Ql (U) Negative Negative [facility] No Panel InformationOrdered By: Nicolle Martinez on 08-18-2023 Estimated Creatinine Clearance Calc 153.68 ml/min [facility] Estimated GFR (MDRD) Amer 175 mL/min >60 [facility] Comment on above: GFR Calc Estimated GFR (MDRD) Non-Af Amer 144 mL/min >60 [facility] Comment on above: Non- GFR Calc Urine RBC 0-5 SEEN /hpf 0-5 [facility] Platelet mean volume Jeyson-Ec ker (Bld) [Entitic vol]Ordered By: Nicolle Martinez on 08-18-2023 Platelet mean volume (Bld) [Entitic vol] 8.9 fL 6.2-12.0 [facility] Protein Test strip Ql (U)Ord ered By: Nicolle Martinez on 08-18-2023 Protein Ql (U) 15 mg/dl Negative [facility] RBC Auto (Bld) [#/Vol]Ordere d By: Nicolle Martinez on 08-18-2023 RBC (Bld) [#/Vol] 4.02 10*6/uL 4.2-5.4 [facility] Serum or plasma calcium yobani urement (mass/volume)Ordered By: Nicolle Martinez on 08-18-2023 Calcium [Mass/Vol] 9.4 mg/dL 8.5-10.1 [facility] Serum or plasma creatinine m easurement (mass/volume)Ordered By: Nicolle Martinez on 08-18-2023 Creatinine [Mass/Vol] 0.53 mg/dL 0.55-1.02 [facility] Comment on above: The validity of the calculated GFR & GFRAA in patients over 70 years has not been determined. Clinical correlation is essential. Serum or plasma urea nitroge n measurement (mass/volume)Ordered By: Nicolle Martinez on 08-18-2023 Urea nitrogen [Mass/Vol] 8 mg/dL 7-18 [facility] Squamous epithelial cells de tection in urine sediment by light microscopyOrdered By: Nicolle Martinez on 08-18-2023 Epithelial cells.squamous LM Ql (Urine sed) 0-5 SEEN /hpf 5-10 [facility] Thin prep Papanicolaou smear with manual screeningOrdered By: Nicolle Martinez on 08-18-2023 Thin prep Papanicolaou smear with manual screening 3.3 g/dL 3.2-5.0 [facility] Thin prep Papanicolaou smear with manual screening 10 U/L 15-37 [facility] Thin prep Papanicolaou smear with manual screening 4 5-15 [facility] Urinalysis, Completeon 08-18 BACTERIA RARE Normal None Seen [facility] Comment on above: Order Comment: CLEAN CATCH Performed By: #### L 400.0001 ####[facility] [address] [place], [address] EPI,SQUAMOUS 0-5 SEEN Normal 5-10 [facility] Comment on above: Order Comment: CLEAN CATCH Performed By: #### L 400.0001 ####[facility] [address] [place], [address] Mucus Ql (Urine sed) RARE Normal [facility] Comment on above: Order Comment: CLEAN CATCH Performed By: #### L 400.0001 ####[facility] [address] [place], [address] RBC 0-5 SEEN Normal 0-5 [facility] Comment on above: Order Comment: CLEAN CATCH Performed By: #### L 400.0001 ####[facility] [address] [place], [address] WBC 0-5 SEEN Normal 0-5 [facility] Comment on above: Order Comment: CLEAN CATCH Performed By: #### L 400.0001 ####[facility] [address] [place], [address] Urine blood detectionOrdered By: Nicolle Martinez on 08-18-2023 RBC Ql (U) 10 /ul Negative [facility] Urine clarityOrdered By: Jojo Martinez on 08-18-2023 Clarity (U) Clear Clear [facility] Urine color determinationOrd ered By: Nicolle Maritnez on 08-18-2023 Color (U) Yellow Yellow [facility] Urine glucose detectionOrder ed By: Nicolle Martinez on 08-18-2023 Glucose Ql (U) Normal mg/dl Normal [facility] Urine leukocyte esterase det ection by dipstickOrdered By: Nicolle Martinez on 08-18-2023 Leukocyte esterase Test strip Ql (U) 25 /ul Negative [facility] Urine pHOrdered By: Nicolle Martinez on 08-18-2023 pH (U) 6.5 [pH] 5.0 - 8.0 [facility] Urine sediment bacteria coun t by microscopy (number/high power field)Ordered By: Nicolle Martinez on 08-18-2023 Bacteria LM.HPF (Urine sed) [#/Area] RARE /hpf None Seen [facility] Urine specific gravity measu rementOrdered By: Nicolle Martinez on 08-18-2023 Specific gravity (U) [Rel density] 1.020 1.002-1.030 [facility] Urine urobilinogen measureme ntOrdered By: Nicolle Martinez on 08-18-2023 Urobilinogen Ql (U) Normal mg/dl Normal [facility] PAP I-G w/rfx hrHPV-Aptimaon 08-07-2023 ADEQ Comment Normal . [facility] Comment on above: Order Comment: Speci men Comment: [id number] Comment: Source.............CervixSpecimen Comment: Other..............Specimen Comment: No. of containers..01 ThinPrep Vial Result Comment: Sati sfactory for evaluation. Endocervical and/or squamous metaplasticcells (endocervical component) are present. Performed By: #### L 7400.0353, M100.2200, L7000.1800 ####[facility] [address] [facility] [place], [place], [address] COMM . Normal . [facility] Comment on above: Order Comment: Speci men Comment: [id number] Comment: Source.............CervixSpecimen Comment: Other..............Specimen Comment: No. of containers..01 ThinPrep Vial Performed By: #### L 7400.0353, M100.2200, L7000.1800 ####[facility] [address] [facility] [place], [address] COMMENT Comment Normal . [facility] Comment on above: Order Comment: Speci men Comment: [id number] Comment: Source.............CervixSpecimen Comment: Other..............Specimen Comment: No. of containers..01 ThinPrep Vial Result Comment: This liquid based ThinPrep(R) pap test was screened withthe use of an image guided system. Performed By: #### L 7400.0353, M100.2200, L7000.1800 ####[facility] [address] [place], [place], [address] DIAG Comment Normal . [facility] Comment on above: Order Comment: Speci men Comment: [id number] Comment: Source.............CervixSpecimen Comment: Other..............Specimen Comment: No. of containers..01 ThinPrep Vial Result Comment: NEGA TIVE FOR INTRAEPITHELIAL LESION OR MALIGNANCY. Performed By: #### L 7400.0353, M100.2200, L7000.1800 ####[facility] [address] [place], [place], [address] HPV RFLX Comment Normal . [facility] Comment on above: Order Comment: Speci men Comment: [id number] Comment: Source.............CervixSpecimen Comment: Other..............Specimen Comment: No. of containers..01 ThinPrep Vial Result Comment: The HPV DNA reflex criteria were not met with this specimenresult therefore, no HPV testing was performed.Performed at: [address] [id number] Director: Nohemi Lewis MD, Phone: [phone] Performed By: #### L 7400.0353, M100.2200, L7000.1800 ####[facility] [address] [place], [address] PAPSMR Comment Normal . [facility] Comment on above: Order Comment: Speci men Comment: [id number] Comment: Source.............CervixSpecimen Comment: Other..............Specimen Comment: No. of containers..01 ThinPrep Vial Result Comment: The Pap smear is a screening test designed to aid in thedetection of premalignant and malignant conditions of theuterine cervix. It is not a diagnostic procedure andshould not be used as the sole means of detecting cervicalcancer. Both false-positive and false-negative reports dooccur. Performed By: #### L 7400.0353, M100.2200, L7000.1800 ####[facility] [address] [place], [address] PERFORM Comment Normal . [facility] Comment on above: Order Comment: Speci men Comment: [id number] Comment: Source.............CervixSpecimen Comment: Other..............Specimen Comment: No. of containers..01 ThinPrep Vial Result Comment: Dmitri Bradley, [employer] ([employer]) Performed By: #### L 7400.0353, M100.2200, L7000.1800 ####[facility] [address] [place], [address] Chlamydia/GC SEPIDEH aptimaon CHLAMY,NUC ACID Negative Normal Negative [facility] Comment on above: Performed By: #### L 7400.0353, M100.2200, L7000.1800 ####[facility] [address] [place], [place], [address] GC BY NUC ACID Negative Normal Negative [facility] Comment on above: Result Comment: Perf ormed at: =G - [facility] [address] [id number] Director: Nohemi Lewis MD, Phone: [phone] Performed By: #### L 7400.0353, M100.2200, L7000.1800 ####[facility] [address] [place], [place], [address] Urine Cultureon 08-03-2023 URC Culture exhibits no growth. Normal [facility] Comment on above: Performed By: #### L 7400.0353, M100.2200, L7000.1800 ####[facility] [address] [place], [place], [address] Absolute lymphocyte countOrd ered By: Roger Marshall on 08-02-2023 Lymphocytes Auto (Unsp spec) [#/Vol] 1.31 10*3/uL 0.83-4.51 [facility] Basophil percentageOrdered B y: Roger Marshall on 08-02-2023 Basophils/100 WBC (Bld) 0.3 % 0-1 [facility] Eosinophils/100 WBC (Bld) 0.6 % 0-5 [facility] Neutrophils (Bld) [#/Vol] 8.1 10*3/uL 2.0-7.7 [facility] Neutrophils/100 WBC (Bld) 76.7 % 47-70 [facility] WBC (Bld) [#/Vol] 10.6 10*3/uL 4.4-11.0 [facility] Blood erythrocytes count (nu mber/volume)Ordered By: Roger Marshall on 08-02-2023 RBC (Bld) [#/Vol] 3.95 10*6/uL 4.2-5.4 [facility] Blood hemoglobin measurement (mass/volume)Ordered By: Roger Marshall on 08-02-2023 Hemoglobin (Bld) [Mass/Vol] 11.9 g/dL 12.0-15.0 [facility] Blood lymphocytes/100 leukoc ytesOrdered By: Roger Marshall on 08-02-2023 Lymphocytes/100 WBC (Bld) 12.4 % 19-41 [facility] Blood monocytes/100 leukocyt esOrdered By: Roger Marshall on 08-02-2023 Monocytes/100 WBC (Bld) 9.6 % 0-10 [facility] Blood platelet mean volumeOr dered By: Roger Marshall on 08-02-2023 Platelet mean volume (Bld) [Entitic vol] 9.1 fL 6.2-12.0 [facility] CBC W/Diff, Automatedon Absolute Lymph 1.31 X10 3/uL Normal 0.83-4.51 [facility] Comment on above: Performed By: #### L 509.4005, L3890.6300, L509.8000, L100.0100, L3890.6005, L3890.6100, BTS ####[facility] [address] [place], [address] Absolute Neut 8.1 X10 3/uL High 2.0-7.7 [facility] Comment on above: Performed By: #### L 509.4005, L3890.6300, L509.8000, L100.0100, L3890.6005, L3890.6100, BTS ####[facility] [address] [place], [address] Basophils/100 WBC (Bld) 0.3 % Normal 0-1 [facility] Comment on above: Performed By: #### L 509.4005, L3890.6300, L509.8000, L100.0100, L3890.6005, L3890.6100, BTS ####[facility] [address] [place], [address] Eosinophils/100 WBC (Bld) 0.6 % Normal 0-5 [facility] Comment on above: Performed By: #### L 509.4005, L3890.6300, L509.8000, L100.0100, L3890.6005, L3890.6100, BTS ####[facility] [address] [place], [address] Erythrocyte distribution width (RBC) [Ratio] 12.0 % Normal 11.6-14.6 [facility] Comment on above: Performed By: #### L 509.4005, L3890.6300, L509.8000, L100.0100, L3890.6005, L3890.6100, BTS ####[facility] [address] [place], [address] Hematocrit (Bld) [Volume fraction] 35.6 % Low 37-47 [facility] Comment on above: Performed By: #### L 509.4005, L3890.6300, L509.8000, L100.0100, L3890.6005, L3890.6100, BTS ####[facility] [address] [place], [address] Hemoglobin (Bld) [Mass/Vol] 11.9 g/dL Low 12.0-15.0 [facility] Comment on above: Performed By: #### L 509.4005, L3890.6300, L509.8000, L100.0100, L3890.6005, L3890.6100, BTS ####[facility] [address] [place], [address] IG% 0.400 Normal 0.0-0.9 [facility] Comment on above: Result Comment: IG% - Immature Granulocytes (promyelocytes, myelocytes andmetamyelocytes) > 1% indicates that a LEFT SHIFT is Present. Performed By: #### L 509.4005, L3890.6300, L509.8000, L100.0100, L3890.6005, L3890.6100, BTS ####[facility] [address] [place], [address] Lymphocytes/100 WBC (Bld) 12.4 % Low 19-41 [facility] Comment on above: Performed By: #### L 509.4005, L3890.6300, L509.8000, L100.0100, L3890.6005, L3890.6100, BTS ####[facility] [address] [place], [address] MCH (RBC) [Entitic mass] 30.1 pg Normal 27.0-32.0 [facility] Comment on above: Performed By: #### L 509.4005, L3890.6300, L509.8000, L100.0100, L3890.6005, L3890.6100, BTS ####[facility] [address] [place], [address] MCHC (RBC) [Mass/Vol] 33.4 g/dL Normal 32-36 [facility] Comment on above: Performed By: #### L 509.4005, L3890.6300, L509.8000, L100.0100, L3890.6005, L3890.6100, BTS ####[facility] [address] [place], [address] MCV (RBC) [Entitic vol] 90.1 fL Normal 81-99 [facility] Comment on above: Performed By: #### L 509.4005, L3890.6300, L509.8000, L100.0100, L3890.6005, L3890.6100, BTS ####[facility] [address] [place], [address] Monocytes/100 WBC (Bld) 9.6 % Normal 0-10 [facility] Comment on above: Performed By: #### L 509.4005, L3890.6300, L509.8000, L100.0100, L3890.6005, L3890.6100, BTS ####[facility] [address] [place], [address] Neutrophils/100 WBC (Bld) 76.7 % High 47-70 [facility] Comment on above: Performed By: #### L 509.4005, L3890.6300, L509.8000, L100.0100, L3890.6005, L3890.6100, BTS ####[facility] [address] [place], [address] Nucleated RBC (Bld) [#/Vol] 0 10*3/uL Normal 0-5 [facility] Comment on above: Performed By: #### L 509.4005, L3890.6300, L509.8000, L100.0100, L3890.6005, L3890.6100, BTS ####[facility] [address] [place], [address] Platelet mean volume (Bld) [Entitic vol] 9.1 fL Normal 6.2-12.0 [facility] Comment on above: Performed By: #### L 509.4005, L3890.6300, L509.8000, L100.0100, L3890.6005, L3890.6100, BTS ####[facility] [address] [place], [address] Platelets (Bld) [#/Vol] 268 10*3/uL Normal 150-450 [facility] Comment on above: Performed By: #### L 509.4005, L3890.6300, L509.8000, L100.0100, L3890.6005, L3890.6100, BTS ####[facility] [address] [place], [address] RBC (Bld) [#/Vol] 3.95 10*6/uL Low 4.2-5.4 [facility] Comment on above: Performed By: #### L 509.4005, L3890.6300, L509.8000, L100.0100, L3890.6005, L3890.6100, BTS ####[facility] [address] [place], [place], [address] RDW SD 39.6 fl Normal 35.1-43.9 [facility] Comment on above: Performed By: #### L 509.4005, L3890.6300, L509.8000, L100.0100, L3890.6005, L3890.6100, BTS ####[facility] [address] [place], [address] WBC (Bld) [#/Vol] 10.6 10*3/uL Normal 4.4-11.0 [facility] Comment on above: Performed By: #### L 509.4005, L3890.6300, L509.8000, L100.0100, L3890.6005, L3890.6100, BTS ####[facility] [address] [place], [place], [address] Cervical or vagninal specime n microscopic examination by cytology stain (reported asOrdered By: Roger Marshall on 08-02-2023 Cytology report Cyto stain Doc (Cvx/Vag) Comment . [facility] Comment on above: The Pap smear is a s creening test designed to aid in thedetection of premalignant and malignant conditions of theuterine cervix. It is not a diagnostic procedure andshould not be used as the sole means of detecting cervicalcancer. Both false-positive and false-negative reports dooccur. Chlamydia trachomatis rRNA d etection by probe and target amplification methodOrdered By: Roger Marshall on 08-02-2023 C. trachomatis rRNA SEPIDEH+probe Ql (Unsp spec) Negative Negative [facility] Culture, urineOrdered By: Jorden Marshall on 08-02-2023 Bacteria identified Cx Nom (U) Culture exhibits no growth. [facility] Determination of erythrocyte mean corpuscular volume (MCV)Ordered By: Roger Marshall on 08-02-2023 MCV (RBC) [Entitic vol] 90.1 fL 81-99 [facility] HIV - WCHon 08-02-2023 HIV Non-Reactive Normal Nonreactive [facility] Comment on above: Order Comment: Reaso n for Exam: Performed By: #### L 509.4005, L3890.6300, L509.8000, L100.0100, L3890.6005, L3890.6100, BTS ####[facility] [address] [place], [address] HIV 1 and HIV-2 antibody ass ay with HIV-1 p24 antigen detectionOrdered By: Roger Marshall on 08-02-2023 HIV 1+2 Ab+HIV1 p24 Ag IA Ql Non-Reactive Nonreactive [facility] Hematocrit Auto (Bld) [Volum e fraction]Ordered By: Roger Marshall on 08-02-2023 Hematocrit (Bld) [Volume fraction] 35.6 % 37-47 [facility] Hepatitis B Surface Antigeno n 08-02-2023 HEP B Surf Ag Non-Reactive [facility] Comment on above: Order Comment: Reaso n for Exam: Performed By: #### L 509.4005, L3890.6300, L509.8000, L100.0100, L3890.6005, L3890.6100, BTS ####[facility] [address] [place], [address] Hepatitis C Antibodyon 08-02 Hepatitis C Ab Non-Reactive Normal Nonreactive [facility] Comment on above: Order Comment: Reaso n for Exam: Result Comment: Non Reactive: < 0.8 Equivocal: >/= 0.8 to < 1.0 Reactive: >/= 1.0The CDC recommends that a reactive/equivocal HCV antibodyresult be followed up by the HCV Nucleic Acid Amplificationtest (563213) Performed By: #### L 509.4005, L3890.6300, L509.8000, L100.0100, L3890.6005, L3890.6100, BTS ####[facility] [address] [place], [place], [address] L509.8000on 08-02-2023 Syphilis Abs Non-Reactive Normal [facility] Comment on above: Order Comment: Reaso n for Exam: Performed By: #### L 509.4005, L3890.6300, L509.8000, L100.0100, L3890.6005, L3890.6100, BTS ####[facility] [address] [place], [address] Laboratory - CytologyOrdered By: Roger Marshall on 08-02-2023 Hospice Nurse Cyto stain Nom (Cvx/Vag) [ID] Comment . [facility] Comment on above: Bogdan Bradley , [employer] ([employer]) Laboratory - Hematology and Cell countsOrdered By: Roger Marshall on 08-02-2023 Erythrocyte distribution width (RBC) [Entitic vol] 39.6 fL 35.1-43.9 [facility] Erythrocyte distribution width (RBC) [Ratio] 12.0 % 11.6-14.6 [facility] Immature granulocytes/100 WBC (Bld) 0.400 % 0.0-0.9 [facility] Comment on above: IG% - Immature Granu locytes (promyelocytes, myelocytes and metamyelocytes) > 1% indicates that a LEFT SHIFT is Present. MCH (RBC) [Entitic mass] 30.1 pg 27.0-32.0 [facility] Nucleated RBC/100 WBC (Bld) [Ratio] 0 % 0-5 [facility] Laboratory - Microbiology an d Antimicrobial susceptibilityOrdered By: Roger Marshall on 08-02-2023 N. gonorrhoeae DNA SEPIDEH+probe Ql (Unsp spec) Negative Negative [facility] Comment on above: Performed at: =[address] [id number] Director: Nohemi Lewis MD, Phone: [phone] Laboratory - Miscellaneous t estsOrdered By: Roger Marshall on 08-02-2023 Service comment (Unsp spec) [Interp] Comment . [facility] Comment on above: This liquid based Th inPrep(R) pap test was screened withthe use of an image guided system. Service comment (Unsp spec) [Interp] . . [facility] Auto (RBC) [Mass/Vol]Or dered By: Roger Marshall on 08-02-2023 MCHC (RBC) [Mass/Vol] 33.4 g/dL 32-36 [facility] No Panel InformationOrdered By: Roger Marshall on 08-02-2023 Human Papillomavirus Screen Comment . [facility] Comment on above: The HPV DNA reflex c riteria were not met with this specimenresult therefore, no HPV testing was performed.Performed at: [address] [id number] Director: Nohemi Lewis MD, Phone: [phone] Pathology report final diagnosis Narrative Comment . [facility] Comment on above: NEGATIVE FOR INTRAEP ITHELIAL LESION OR MALIGNANCY. Hepatitis B Surface Antigen Non-Reactive Nonreactive [facility] Hepatitis C Antibody Non-Reactive Nonreactive [facility] Comment on above: Non Reactive: < 0.8 Equivocal: >/= 0.8 to < 1.0 Reactive: >/= 1.0The CDC recommends that a reactive/equivocal HCV antibody result be followed up by the HCV Nucleic Acid Amplificationtest (136389) Rubella IgG Antibody Reactive Nonreactive [facility] Comment on above: Antibody Results Int erpretation of Immune Status Non Reactive Presumed Non-Immune Equivocal Equivocal Reactive Presumed Immune Fairground Operator Office Visit Reporton 08-02-2023 Fairground Operator Office Visit Report Normal [facility] Platelets bldOrdered By: Gutierrez Marshall on 08-02-2023 Platelets (Bld) [#/Vol] 268 10*3/uL 150-450 [facility] Rubella IgGon 08-02-2023 Rubella IgG Reactive Normal Nonreactive [facility] Comment on above: Order Comment: Reaso n for Exam: Result Comment: Anti body Results Interpretation of Immune Status Non Reactive Presumed Non-Immune Equivocal Equivocal Reactive Presumed Immune Performed By: #### L 509.4005, L3890.6300, L509.8000, L100.0100, L3890.6005, L3890.6100, BTS ####[facility] [address] [place], [place], [id number] Serum Treponema species anti body detectionOrdered By: Roger Marshall on 08-02-2023 Treponema sp Ab Ql (S) Non-Reactive [facility] Type AND Screenon 08-02-2023 Ab SCREEN GEL Negative Normal [facility] Comment on above: Order Comment: PN Performed By: #### L 509.4005, L3890.6300, L509.8000, L100.0100, L3890.6005, L3890.6100, BTS ####[facility] [address] [place], [place], [address] ABO and Rh group Nom (Bld) Blood group O Rh(D) positive Normal [facility] Comment on above: Order Comment: PN Performed By: #### L 509.4005, L3890.6300, L509.8000, L100.0100, L3890.6005, L3890.6100, BTS ####[facility] [address] [place], [place], [address] Transvaginal w/Preg USon Transvaginal w/Preg US Normal [facility] Serum or plasma choriogonado tropin detectionOrdered By: Nicolle Lagos on 07-11-2023 HCG ( test) [place]l [address] mIU/mL <4 [facility] Comment on above: hCG levels with Gest ational AgeGestational Age hCG mIU/mL (IU/L)0.2 - 1 week 5 - 501-2 weeks 50 - 5002-3 weeks 100 - 46040-4 weeks 500 - 959693-3 weeks 1000 - 160472-5 weeks 51931 - 100,0006-8 weeks 30261 - 200,0002-3 months 89638 - 100,000 hCG Titer Quant., Serumon HCG QUANT. 09926 mIU/mL High 1-3 [facility] Comment on above: Result Comment: hCG levels with Gestational AgeGestational Age hCG mIU/mL (IU/L)0.2 - 1 week 5 - 501-2 weeks 50 - 5002-3 weeks 100 - 04748-2 weeks 500 - 410534-0 weeks 1000 - 914153-7 weeks 52249 - 100,0006-8 weeks 55017 - 200,0002-3 months 61391 - 100,000 Performed By: #### L 700.8000 ####[facility] [address] [place], [address] Basophil percentageOrdered B y: Sherwin Mendoza on 07-09-2023 Basophil percentage 0 SEEN /hpf 0-5 [facility] Bilirubin Test strip Ql (U)O rdered By: Sherwin Mendoza on 07-09-2023 Bilirubin Ql (U) Negative Negative [facility] Emergency Department Summary on 07-09-2023 Emergency Department Summary Normal [facility] Ketones Test strip Ql (U)Ord ered By: Sherwin Mendoza on 07-09-2023 Ketones Ql (U) Negative Negative [facility] Mucus LM Ql (Urine sed)Order ed By: Sherwin Mendoza on 07-09-2023 Mucus Ql (Urine sed) 0 SEEN /hpf [facility] Nitrite Test strip Ql (U)Ord ered By: Sherwin Mendoza on 07-09-2023 Nitrite Ql (U) Negative Negative [facility] Protein Test strip Ql (U)Ord ered By: Sherwin Mendoza on 07-09-2023 Protein Ql (U) Negative Negative [facility] Serum or plasma choriogonado tropin detectionOrdered By: Nicolle Lagos on 07-09-2023 HCG ( test) [place]l [address] mIU/mL <4 [facility] Comment on above: hCG levels with Gest ational AgeGestational Age hCG mIU/mL (IU/L)0.2 - 1 week 5 - 501-2 weeks 50 - 5002-3 weeks 100 - 82621-2 weeks 500 - 047616-1 weeks 1000 - 058367-2 weeks 68230 - 100,0006-8 weeks 92576 - 200,0002-3 months 90235 - 100,000 Squamous epithelial cells de tection in urine sediment by light microscopyOrdered By: Sherwin Mendoza on 07-09-2023 Epithelial cells.squamous LM Ql (Urine sed) 0 SEEN /hpf 5-10 [facility] Transvaginal w/Preg USon Transvaginal w/Preg US Normal [facility] Urinalysis, Completeon 07-09 BACTERIA 0 SEEN Normal None Seen [facility] Comment on above: Order Comment: CLEAN CATCH Performed By: #### L 400.0001 ####[facility] [address] [place], [address] EPI,SQUAMOUS 0 SEEN Normal 5-10 [facility] Comment on above: Order Comment: CLEAN CATCH Performed By: #### L 400.0001 ####[facility] [address] [place], [address] Mucus Ql (Urine sed) 0 SEEN Normal [facility] Comment on above: Order Comment: CLEAN CATCH Performed By: #### L 400.0001 ####[facility] [address] [place], [address] RBC 0 SEEN Normal 0-5 [facility] Comment on above: Order Comment: CLEAN CATCH Performed By: #### L 400.0001 ####[facility] [address] [place], [address] WBC 0 SEEN Normal 0-5 [facility] Comment on above: Order Comment: CLEAN CATCH Performed By: #### L 400.0001 ####[facility] [address] [place], [address] Urine blood detectionOrdered By: Sherwin Mendoza on 07-09-2023 RBC Ql (U) Negative Negative [facility] RBC Ql (U) 0 SEEN /hpf 0-5 [facility] Urine clarityOrdered By: Nan Mendoza on 07-09-2023 Clarity (U) Clear Clear [facility] Urine color determinationOrd ered By: Sherwin Mendoza on 07-09-2023 Color (U) Yellow Yellow [facility] Urine glucose detectionOrder ed By: Sherwin Mendoza on 07-09-2023 Glucose Ql (U) Normal mg/dl Normal [facility] Urine leukocyte esterase det ection by dipstickOrdered By: Sherwin Mendoza on 07-09-2023 Leukocyte esterase Test strip Ql (U) Negative Negative [facility] Urine pHOrdered By: Sherwin jamison on 07-09-2023 pH (U) 7.0 [pH] 5.0 - 8.0 [facility] Urine sediment bacteria coun t by microscopy (number/high power field)Ordered By: Sherwin Mendoza on 07-09-2023 Bacteria LM.HPF (Urine sed) [#/Area] 0 /[HPF] None Seen [facility] Urine specific gravity measu rementOrdered By: Sherwin Mendoza on 07-09-2023 Specific gravity (U) [Rel density] 1.005 1.002-1.030 [facility] Urobilinogen Auto test strip Ql (U)Ordered By: Sherwin Mendoza on 07-09-2023 Urobilinogen Ql (U) Normal mg/dl Normal [facility] hCG Titer Quant., Serumon HCG QUANT. 28897 mIU/mL High 1-3 [facility] Comment on above: Result Comment: hCG levels with Gestational AgeGestational Age hCG mIU/mL (IU/L)0.2 - 1 week 5 - 501-2 weeks 50 - 5002-3 weeks 100 - 79598-7 weeks 500 - 043534-4 weeks 1000 - 322235-1 weeks 46646 - 100,0006-8 weeks 71428 - 200,0002-3 months 61815 - 100,000 Performed By: #### L 700.8000 ####[facility] [address] [place], [address] Basophil percentageOrdered B y: Chioma Bradley on 03-05-2023 WBC (Bld) [#/Vol] 6.9 10*3/uL 4.4-11.0 [facility] Blood erythrocytes count (nu mber/volume)Ordered By: Chioma Bradley on 03-05-2023 RBC (Bld) [#/Vol] 4.24 10*6/uL 4.2-5.4 [facility] [place] Blood hemoglobin measurement (mass/volume)Ordered By: Chioma Bradley on 03-05-2023 Hemoglobin (Bld) [Mass/Vol] 12.9 g/dL 12.0-15.0 [facility] Blood platelet mean volumeOr dered By: Chioma Bradley on 03-05-2023 Platelet mean volume (Bld) [Entitic vol] 9.0 fL 6.2-12.0 [facility] Determination of erythrocyte mean corpuscular volume (MCV)Ordered By: Chioma Bradley on 03-05-2023 MCV (RBC) [Entitic vol] 88.4 fL 81-99 [facility] Hematocrit Auto (Bld) [Volum e fraction]Ordered By: Chioma Bradley on 03-05-2023 Hematocrit (Bld) [Volume fraction] 37.5 % 37-47 [facility] Laboratory - Hematology and Cell countsOrdered By: Chioma Bradley on 03-05-2023 Erythrocyte distribution width (RBC) [Entitic vol] 38.1 fL 35.1-43.9 [facility] Erythrocyte distribution width (RBC) [Ratio] 11.9 % 11.6-14.6 [facility] MCH (RBC) [Entitic mass] 30.4 pg 27.0-32.0 [facility] MCHC Auto (RBC) [Mass/Vol]Or dered By: Chioma Bradley on 03-05-2023 MCHC (RBC) [Mass/Vol] 34.4 g/dL 32-36 [facility] Platelets bldOrdered By: Misael Bradley on 03-05-2023 Platelets (Bld) [#/Vol] 222 10*3/uL 150-450 [facility] Bacteria identified Cx Nom ( Wound)Ordered By: Refugio Barriga on 01-31-2023 Wound Culture Staphylococcus epidermidis [facility] Gram stain for investigation of transfusion reactionOrdered By: Rfeugio Barriga on 01-31-2023 Microscopic observation Gram stain Nom (Unsp spec) [facility] Culture, urineOrdered By: Dr Lyubov Bradley on 01-21-2023 Bacteria identified Cx Nom (U) Culture exhibits no growth. [facility] Absolute lymphocyte countOrd ered By: Dr. Bradley on 01-19-2023 Lymphocytes Auto (Unsp spec) [#/Vol] 1.23 10*3/uL 0.83-4.51 [facility] Basophil percentageOrdered B y: Dr. Bradley on 01-19-2023 Basophils/100 WBC (Bld) 0.7 % 0-1 [facility] Eosinophils/100 WBC (Bld) 0.4 % 0-5 [facility] Neutrophils (Bld) [#/Vol] 6.4 10*3/uL 2.0-7.7 [facility] Neutrophils/100 WBC (Bld) 74.5 % 47-70 [facility] WBC (Bld) [#/Vol] 8.5 10*3/uL 4.4-11.0 [facility] Blood erythrocytes count (nu mber/volume)Ordered By: Dr. Bradley on 01-19-2023 RBC (Bld) [#/Vol] 4.46 10*6/uL 4.2-5.4 [facility] [place] Blood hemoglobin measurement (mass/volume)Ordered By: Dr. Bradley on 01-19-2023 Hemoglobin (Bld) [Mass/Vol] 13.4 g/dL 12.0-15.0 [facility] Blood lymphocytes/100 leukoc ytesOrdered By: Dr. Bradley on 01-19-2023 Lymphocytes/100 WBC (Bld) 14.4 % 19-41 [facility] Blood monocytes/100 leukocyt esOrdered By: Dr. Bradley on 01-19-2023 Monocytes/100 WBC (Bld) 9.6 % 0-10 [facility] Blood platelet mean volumeOr dered By: Dr. Bradley on 01-19-2023 Platelet mean volume (Bld) [Entitic vol] 9.2 fL 6.2-12.0 [facility] Culture, urineOrdered By: Barbara Bradley on 01-19-2023 Bacteria identified Cx Nom (U) Culture exhibits no growth. [facility] Determination of erythrocyte mean corpuscular volume (MCV)Ordered By: Dr. Bradley on 01-19-2023 MCV (RBC) [Entitic vol] 91.7 fL 81-99 [facility] HIV 1 and HIV-2 antibody ass ay with HIV-1 p24 antigen detectionOrdered By: Dr. Bradley on 01-19-2023 HIV 1+2 Ab+HIV1 p24 Ag IA Ql Non-Reactive Nonreactive [facility] Hematocrit Auto (Bld) [Volum e fraction]Ordered By: Dr. Bradley on 01-19-2023 Hematocrit (Bld) [Volume fraction] 40.9 % 37-47 [facility] Laboratory - Hematology and Cell countsOrdered By: Dr. Bradley on 01-19-2023 Erythrocyte distribution width (RBC) [Entitic vol] 38.5 fL 35.1-43.9 [facility] Erythrocyte distribution width (RBC) [Ratio] 11.5 % 11.6-14.6 [facility] Immature granulocytes/100 WBC (Bld) 0.400 % 0.0-0.9 [facility] Comment on above: IG% - Immature Granu locytes (promyelocytes, myelocytes and metamyelocytes) > 1% indicates that a LEFT SHIFT is Present. MCH (RBC) [Entitic mass] 30.0 pg 27.0-32.0 [facility] Nucleated RBC/100 WBC (Bld) [Ratio] 0 % 0-5 [facility] MCHC Auto (RBC) [Mass/Vol]Or dered By: Dr. Bradley on 01-19-2023 MCHC (RBC) [Mass/Vol] 32.8 g/dL 32-36 [facility] No Panel InformationOrdered By: Dr. Bradley on 01-19-2023 Hepatitis B Surface Antigen Non-Reactive Nonreactive [facility] Hepatitis C Antibody Non-Reactive Nonreactive [facility] Comment on above: Non Reactive: < 0.8 Equivocal: >/= 0.8 to < 1.0 Reactive: >/= 1.0The CDC recommends that a reactive/equivocal HCV antibody result be followed up by the HCV Nucleic Acid Amplificationtest (325659) Rubella IgG Antibody Reactive Nonreactive [facility] Comment on above: Antibody Results Int erpretation of Immune Status Non Reactive Presumed Non-Immune Equivocal Equivocal Reactive Presumed Immune Platelets bldOrdered By: Dr. Bradley on 01-19-2023 Platelets (Bld) [#/Vol] 304 10*3/uL 150-450 [facility] Serum Treponema species anti body detectionOrdered By: Dr. Bradley on 01-19-2023 Treponema sp Ab Ql (S) Non-Reactive [facility] Serum Varicella zoster virus IgG antibody assay by immunoassay (units/volume)Ordered By: Dr. Bradley on 01-19-2023 VZV IgG IA Qn (S) 800 index Immune >165 [facility] Comment on above: Negative <135 Equivo antonia 135 - 165 Positive >165A positive result generally indicates exposure to thepathogen or administration of specific immunoglobulins,but it is not indication of active infection or stageof disease.Performed at: [facility] [place], [place] [id number] Director: Peewee Rao PhD, Phone: [phone] No Panel InformationOrdered By: Dr. Bradley on 10-30-2022 Follicle Stimulating Hormone 3.0 mIU/mL [facility] Comment on above: NORMAL REFERENCE RAN GES FEMALE FOLLICULAR 2.3 - 12.6 mIU/mL MID-CYCLE PEAK 5.2 - 17.5 mIU/mL LUTEAL 1.7 - 12.9 mIU/mL POST-MENOPAUSAL ON MHT 5.9 - 72.8 mIU/mL NOT ON MHT 12.7 - 132.2 mlU/mL MALE 0.7 - 10.8 mIU/mL Luteinizing Hormone 3.7 mIU/mL [facility] [place] Comment on above: NORMAL REFERENCE RAN GES FEMALE FOLLICULAR 1.9 - 26.2 mIU/mL MID-CYCLE PEAK 22.8 - 76.1 mIU/mL LUTEAL 0.6 - 16.6 mIU/mL POST-MENOPAUSAL ON MHT 1.1 - 52.4 mIU/mL NOT ON MHT 8.6 - 61.8 mIU/mL MALE 1.2 - 10.6 mIU/mL Rubella IgG Antibody Reactive Nonreactive [facility] Comment on above: Antibody Results Int erpretation of Immune Status Non Reactive Presumed Non-Immune Equivocal Equivocal Reactive Presumed Immune Vitamin D 25-Hydroxy 34.9 ng/mL [facility] Comment on above: Vitamin D 25(OH) Sta tus Range Deficiency <20 ng/mL (50nmol/L) Insufficiency 20 - 30 ng/mL (50 - 75 nmol/L) Sufficiency 30 - 100 ng/mL (75 - 250 nmol/L) Toxicity >100 ng/mL (>250 nmol/L) Serum Varicella zoster virus IgG antibody assay by immunoassay (units/volume)Ordered By: Dr. Bradley on 10-30-2022 VZV IgG IA Qn (S) 862 index Immune >165 [facility] Comment on above: Negative <135 Equivo antonia 135 - 165 Positive >165A positive result generally indicates exposure to thepathogen or administration of specific immunoglobulins,but it is not indication of active infection or stageof disease.Performed at: [facility] [place], [place] [id number] Director: Peewee Rao PhD, Phone: [phone] Serum hepatitis B virus surf sarah antibody IgG detectionOrdered By: Dr. Bradley on 10-30-2022 HBV surface IgG Ql (S) Non-Reactive [facility] Comment on above: Non Reactive: Incons istent with immunity less than <10 mIU/mL Reactive: Consistent with immunity greater than or equal to 10 mIU/mL Serum or plasma estradiol (E 2) measurement (mass/volume)Ordered By: Dr. Bradley on 10-30-2022 E2 [Mass/Vol] 96.8 pg/mL [facility] Comment on above: NORMAL REFERENCE RAN GES FEMALE FOLLICULAR 21.4 - 164.8 pg/mL MID-CYCLE PEAK 49.9 - 367.2 pg/mL LUTEAL 40.2 - 259.0 pg/mL POST-MENOPAUSAL ON MHT <11.0 - 462.1 pg/mL NOT ON MHT <11.0 - 58.3 pg/mL MALE <11.0 - 52.5 pg/mL NOTE:[employer] HAS CONFIRMED THE DRUG FULVETRANT (FASLODEX) MAY CAUSE FALSELY ELEVATED ESTRADIOL RESULTS WHEN USING THIS TEST METHOD. IF PATIENT IS TAKING FULVESTRANT AN ALTERNATIVE METHOD SHOULD BE USED TO DETERMINE ESTRADIOL CONCENTRATION. Serum or plasma progesterone measurement (mass/volume)Ordered By: Dr. Bradley on 10-30-2022 Progesterone [Mass/Vol] 11.63 ng/mL See Comment [facility] Comment on above: Progesterone Referen ce Table: UNITS Female: Follicular 0.15 - 1.40 ng/mL Luteal 3.34 - 25.56 ng/mL Mid-luteal 4.44 - 28.03 ng/mL Postmenopausal 0.0 - 0.73 ng/mL : 1st Trimester 11.22 - 90.00 ng/mL 2nd Trimester 25.55 - 89.40 ng/mL 3rd Trimester 48.40 -422.50 ng/mL Whole blood hemoglobin A1c/t otal hemoglobin ratio (mass fraction)Ordered By: Dr. Bradley on 10-30-2022 HbA1c (Bld) [Mass fraction] 5.3 % 3.8-5.6 [facility] Comment on above: Normal < 5.7 % Predi abetic 5.7 - 6.4 % Diabetic >or= 6.5 % Please note range changes. PAP FLUID CERVICAL SCREENING on 08-03-2022 Case Report Gynecologic Cytology Report Case: [id number] Authorizing Provider: Destiney Mccarthy APRN.CORE WINDER MACHINE OPERATOR Collected: 08/01/2022 02:49 PM Ordering Location: OB/Gynecology Received: 08/01/2022 05:00 PM First Screen: Yesica Lance, CT, ASCP Specimen: Pap, Director Digital, Screening, CERVICAL SCREENING FLUID [facility] Clinical History HPV POS [facility] Cytology Interpretation Negative C [facility] FINAL DIAGNOSIS A - CERVICAL SCREENING FLUID Satisfactory for interpretation Negative for Intraepithelial lesion or malignancy. [facility] HPV Requested? Yes, Reflex HPV for ASCUS [facility] LMP 07/25/2022 [facility] Pap Disclaimer The Pap Smear is a screening test for cervical cancer. False negative results occur with all screening tests, emphasizing the need for rescreening at recommended intervals, and clinical correlation. [facility] PAP Director Digital Comment This specimen has been analyzed by the ThinPrep Imaging System, an automated imaging and review system, which assists the laboratory in evaluating cells on ThinPrep Pap tests. Following automated imaging, selected taveras from every slide are reviewed by a straddle bug operator. [facility] Performing Lab Technical component, straddle bug operator screening performed at [facility], [address] [place] [place] [id number] CLIA# [id number] Diagnostic interpretation performed at [facility], [address] [place] [id number] CLIA# [id number] Candy Starch Mold Printer: Tyree Lozano M.D. [facility] Influenza virus A and B RNA and SARS-CoV-2 (COVID-19) N gene panel SEPIDEH+probe (Resp)on 07-26-2022 FLUAV RNA SEPIDEH+probe Ql (Unsp spec) Negative Negative for Influenza A by RT-PCR [facility] FLUBV RNA SEPIDEH+probe Ql (Unsp spec) Negative Negative for Influenza B by RT-PCR [facility] SARS-CoV-2 (COVID-19) RNA SEPIDEH+probe Ql (Resp) SARS-CoV-2 (Agent of COVID-19) Detected by RT-PCR or equivalent method. Abnormal Not Detected [facility] XR HAND GENERAL 3V PA/LAT/OB L LEFTon 07-25-2022 [facility] XR Hand - left PA and Latera l and Obliqueon 07-25-2022 IMPRESSION: No radiographic evidence of acute osseous injury. Tangled Yarn Worker: [facility] Transcribe Date/Time: Jul 25 2022 2:09P Dictated by : CHARY HANNAH MD This examination was interpreted and the report reviewed and electronically signed by: CHARY HANNAH MD on Jul 25 2022 2:23PM [facility] DIVISION OF RADIOLOGY * * *Final Report* * * DATE OF EXAM: Jul 25 2022 1:54PM WOX 5345 - XR HAND 3V PA/LAT/OBL LT / PROCEDURE REASON: Pain of finger of left hand * * * * Physician Interpretation * * * * TITLE: XR HAND 3V PA/LAT/OBL LT CLINICAL INDICATION: Pain TECHNIQUE: 3 view radiographic study of the left hand COMPARISON: None FINDINGS: No acute fracture or dislocation identified. Joint spaces preserved. DIVISION OF RADIOLOGY Provider, [facility] [place] - 07/25/2022 * * *Final Report* * * DATE OF EXAM: Jul 25 2022 1:54PM WOX 5345 - XR HAND 3V PA/LAT/OBL LT / PROCEDURE REASON: Pain of finger of left hand * * * * Physician Interpretation * * * * TITLE: XR HAND 3V PA/LAT/OBL LT CLINICAL INDICATION: Pain TECHNIQUE: 3 view radiographic study of the left hand COMPARISON: None FINDINGS: No acute fracture or dislocation identified. Joint spaces preserved. IMPRESSION IMPRESSION: No radiographic evidence of acute osseous injury. Tangled Yarn Worker: [facility] Transcribe Date/Time: Jul 25 2022 2:09P Dictated by : CHARY HANNAH MD This examination was interpreted and the report reviewed and electronically signed by: CHARY HANNAH MD on Jul 25 2022 2:23PM EST [facility] Radiology Study [facility]narrative) [facility] Hand - left PA and Latera l and ObliqueOrdered By: [facility] Provider on 07-25-2022 [facility] Basophil percentageon 2021 Potassium [Moles/Vol] 3.6 mmol/L 3.5-5.1 [facility] Work Phone: THIN PREP with HPV REFLEX C Uon 01-11-2021 . Comment Normal [facility] Comment on above: Result Comment: The HPV DNA reflex criteria were not met with this specimen result therefore, no HPV testing was performed. . Performed By: #### T PHRA #### Performed for [place] [address] [id number] . Normal [facility] Comment on above: Performed By: #### T PHRA #### Performed for [place] [address] Hospice Nurse Cyto stain Nom (Cvx/Vag) [ID] Comment Normal [facility] Comment on above: Result Comment: Dickson Espino, Outside [employer] Sales Representatives (ASCP) Performed By: #### T PHRA #### Performed for [place] [address] Cytology report Cyto stain Doc (Cvx/Vag) Comment Normal [facility] Comment on above: Result Comment: NEGA TIVE FOR INTRAEPITHELIAL LESION OR MALIGNANCY. Performed By: #### T PHRA #### Performed for [place] [address] Cytology report Cyto stain.thin prep Doc (Cvx/Vag) Comment Normal [facility] Comment on above: Result Comment: This liquid based ThinPrep(R) pap test was screened with the use of an image guided system. Performed By: #### T PHRA #### Performed for [place] [address] Note: Comment Normal [facility] Comment on above: Result Comment: The Pap smear is a screening test designed to aid in the detection of premalignant and malignant conditions of the uterine cervix. It is not a diagnostic procedure and should not be used as the sole means of detecting cervical cancer. Both false-positive and false-negative reports do occur. . Performed By: #### T PHRA #### Performed for [place] [address] Statement of adequacy Cyto stain (Cvx/Vag) [Interp] Comment Normal [facility] Comment on above: Result Comment: Sati sfactory for evaluation. Endocervical and/or squamous metaplastic cells (endocervical component) are present. Performed By: #### T PHRA #### Performed for [facility] [address] [place], [place] [address] CHLAMYDIA and GONORRHEA NAAo n 01-09-2021 C. trachomatis rRNA SEPIDEH+probe Ql (Unsp spec) Negative Normal Negative [facility] Comment on above: Performed By: #### G [facility] #### Performed for [facility] [address] [place], [place] [address] N. gonorrhoeae rRNA SEPIDEH+probe Ql (Unsp spec) Negative Normal Negative [facility] Comment on above: Performed By: #### [facility] #### Performed for [facility] [address] [place], [place] [address] 2019 NOVEL CORONAVIRUS, NAAo n 02-09-2020 2019 NOVEL CORONAVIRUS, SEPIDEH Not Detected Normal Not Detected [facility] Comment on above: Result Comment: This test was developed and its performance characteristics determined by [email or web address]. This test has not been FDA cleared or approved. This test has been authorized by FDA under an Emergency Use Authorization (EUA). This test is only authorized for the duration of time the declaration that circumstances exist justifying the authorization of the emergency use of in vitro diagnostic tests for detection of SARS-CoV-2 virus and/or diagnosis of COVID-19 infection under section 564(b)(1) of the Act, 21 U.S.C. 360bbb-3(b)(1), unless the authorization is terminated or revoked sooner. When diagnostic testing is negative, the possibility of a false negative result should be considered in the context of a patient's recent exposures and the presence of clinical signs and symptoms consistent with COVID-19. An individual without symptoms of COVID-19 and who is not shedding SARS-CoV-2 virus would expect to have a negative (not detected) result in this assay. Performed at: [facility] [address] [facility], [place] [id number] Gallery Or Museum Technician: Sammie Santiago MD, Phone: [phone] INFLUENZA A/B ANTIGENSon INFLUENZA A/B ANTIGENS A NEGATIVE FLU RESULT DOES NOT RULE OUT INFLUENZA VIRAL INFECTION. A NEGATIVE FLU RESULT SHOULD BE CONFIRMED BY PCR. INFLUENZA A NEGATIVE INFLUENZA B NEGATIVE Normal [facility] Comment on above: Performed By: #### F LUAB #### [facility] [address] [place] [address] Office Visit: UC: bronchitis on 04-30-2017 Fall risk assessment No Invalid Interpretation Code [facility] Work Phone: Protein mass conc Done Invalid Interpretation Code [facility] Work Phone: Tobacco smoking status NHIS Never smoker Invalid Interpretation Code [facility] Work Phone: Vital Signs Date Time Vital Sign Value Performing Clinician Facility 08-27-2024 12:56-0500 Body height 170.2 cm Boston Lopez MD Work Phone: [facility] 08-27-2024 12:56-0500 Body mass index (BMI) [Ratio] 23.65 kg/m2 Boston Lopez MD Work Phone: [facility] 08-27-2024 12:56-0500 Body weight 68.49 kg Boston Lopez MD Work Phone: [facility] 08-27-2024 12:56-0500 Diastolic blood pressure 67 mm[Hg] Boston Lopez MD Work Phone: [facility] 08-27-2024 12:56-0500 Heart rate 88 /min Boston Lopez MD Work Phone: [facility] 08-27-2024 12:56-0500 Systolic blood pressure 104 mm[Hg] Boston Lopez MD Work Phone: [facility] 06-05-2024 13:23-0500 Body mass index (BMI) [Ratio] 26.1 kg/m2 Jesica Johnson TOOL INSPECTOR.LAST DIPPER Work Phone: [facility] 06-05-2024 13:23-0500 Body temperature 100.29 [degF] Jesica Johnson TOOL INSPECTOR.LAST DIPPER Work Phone: [facility] 06-05-2024 13:23-0500 Body weight 75.6 kg Jesica Johnson TOOL INSPECTOR.LAST DIPPER Work Phone: [facility] 06-05-2024 13:23-0500 Diastolic blood pressure 64 mm[Hg] Jesica Johnson TOOL INSPECTOR.LAST DIPPER Work Phone: [facility] 06-05-2024 13:23-0500 Heart rate 109 /min Jesica Johnson TOOL INSPECTOR.LAST DIPPER Work Phone: [facility] 06-05-2024 13:23-0500 Respiratory rate 16 /min Jesica Johnson TOOL INSPECTOR.LAST DIPPER Work Phone: [facility] 06-05-2024 13:23-0500 SaO2% (BldA) [Mass fraction] 93 % Jesica Johnson TOOL INSPECTOR.LAST DIPPER Work Phone: [facility] 06-05-2024 13:23-0500 Systolic blood pressure 101 mm[Hg] Jesica Johnson TOOL INSPECTOR.LAST DIPPER Work Phone: [facility] 12-03-2023 09:50-0400 Body height 170.[address] Boston Lopez Work Phone: [facility] 12-03-2023 09:50-0400 Body mass index (BMI) [Ratio] 26.8 kg/m2 Dr. Boston Lopze Work Phone: [facility] 12-03-2023 09:50-0400 Body weight 77.[address] Boston Lopez Work Phone: [facility] 12-03-2023 09:50-0400 Diastolic blood pressure 66 mm[Hg] Dr. Boston Lopez Work Phone: [facility] 12-03-2023 09:50-0400 Systolic blood pressure 110 mm[Hg] Dr. Boston Lopez Work Phone: [facility] 11-05-2023 09:16-0400 Body mass index (BMI) [Ratio] 26.4 kg/m2 Dr. Boston Lopez Work Phone: [facility] 11-05-2023 09:16-0400 Body weight 76.[address] Boston Lopez Work Phone: [facility] 11-05-2023 09:16-0400 Diastolic blood pressure 71 mm[Hg] Dr. Boston Lopez Work Phone: 6(364)128-339054 [place] [address] 11-05-2023 09:16-0400 Systolic blood pressure 113 mm[Hg] Dr. Boston Lopez Work Phone: 7(141)026-637454 [place] [address] 10-11-2023 11:08-0400 Body mass index (BMI) [Ratio] 25.7 kg/m2 Dr. Boston Lopez Work Phone: 7(900)491-147854 [place] [address] 10-11-2023 11:08-0400 Body weight 74.[address] Boston Lopez Work Phone: 4(638)304-895354 [place] [address] 10-11-2023 11:08-0400 Diastolic blood pressure 77 mm[Hg] Dr. Boston Lopez Work Phone: 0(984)291-345254 [place] [address] 10-11-2023 11:08-0400 Systolic blood pressure 109 mm[Hg] Dr. Boston Lopez Work Phone: 8(965)176-122954 [place] [address] 10-04-2023 06:49-0500 Body weight 74.[address] Boston Lopez Work Phone: 4(150)052-722554 [place] [address] 10-04-2023 06:49-0500 Diastolic blood pressure 75 mm[Hg] Dr. Boston Lopez Work Phone: 6(608)043-176154 [place] [address] 10-04-2023 06:49-0500 Systolic blood pressure 115 mm[Hg] Dr. Boston Lopez Work Phone: 9(308)935-400454 [place] [address] 09-27-2023 06:59-0500 Body weight 73.[address] Boston Lopez Work Phone: 7(079)951-274154 [place] [address] 09-27-2023 06:59-0500 Diastolic blood pressure 77 mm[Hg] Dr. Boston Lopez Work Phone: 5(289)636-366954 [place] [address] 09-27-2023 06:59-0500 Systolic blood pressure 138 mm[Hg] Dr. Boston Lopez Work Phone: 5(146)756-569854 [place] [address] 09-21-2023 15:06-0500 Body height 170.[address] Boston Lopez Work Phone: 1(705)322-639854 [place] [address] 09-21-2023 15:06-0500 Body mass index (BMI) [Ratio] 25.7 kg/m2 Dr. Boston Lopez Work Phone: 9(545)493-855454 [place] [address] 09-21-2023 15:06-0500 Body weight 74.[address] Boston Lopez Work Phone: 8(101)121-058054 [place] [address] 09-21-2023 15:06-0500 Diastolic blood pressure 76 mm[Hg] Dr. Boston Lopez Work Phone: 3(782)958-895654 [place] [address] 09-21-2023 15:06-0500 Systolic blood pressure 124 mm[Hg] Dr. Boston Lopez Work Phone: 6(142)413-594054 [place] [address] 09-12-2023 14:46-0500 Body mass index (BMI) [Ratio] 24.9 kg/m2 Dr. Boston Lopez Work Phone: 4(359)272-711854 [place] [address] 09-12-2023 14:46-0500 Body weight 72.[address] Boston Lopez Work Phone: 8(759)995-836654 [place] [address] 09-12-2023 14:46-0500 Diastolic blood pressure 80 mm[Hg] Dr. Boston Lopez Work Phone: 1(068)766-376554 [place] [address] 09-12-2023 14:46-0500 Systolic blood pressure 135 mm[Hg] Dr. Boston Lopez Work Phone: 0(172)794-678754 [place] [address] 08-28-2023 16:02-0500 Body height 170.[address] Boston Lopez Work Phone: 6(853)422-438954 [place] [address] 08-28-2023 16:00-0500 Body mass index (BMI) [Ratio] 24.8 kg/m2 Dr. Boston Lopez Work Phone: 2(396)937-148954 [place] [address] 08-28-2023 16:00-0500 Body weight 71.[address] Boston Lopez Work Phone: 9(840)568-914154 [place] [address] 08-28-2023 16:00-0500 Diastolic blood pressure 76 mm[Hg] Dr. Boston Lopez Work Phone: 1(778)980-107854 [place] [address] 08-28-2023 16:00-0500 Systolic blood pressure 105 mm[Hg] Dr. Boston Lopez Work Phone: 8(076)292-831554 [place] [address] 08-18-2023 22:09-0500 Body height 170.[address] Boston Lopez Work Phone: 0(485)858-751454 [place] [address] 08-18-2023 22:09-0500 Body mass index (BMI) [Ratio] 25 kg/m2 Dr. Boston Lopez Work Phone: 9(245)421-886454 [place] [address] 08-18-2023 22:09-0500 Body temperature 96.8 [degF] Dr. Boston Lopez Work Phone: 9(839)776-121654 [place] [address] 08-18-2023 22:09-0500 Body weight 72.[address] Boston Lopez Work Phone: 1(028)870-378354 [place] [address] 08-18-2023 22:09-0500 Diastolic blood pressure 83 mm[Hg] Dr. Boston Lopez Work Phone: 5(632)914-307054 [place] [address] 08-18-2023 22:09-0500 Heart rate 115 /min Dr. Boston Lopez Work Phone: 7(807)511-277054 [place] [address] 08-18-2023 22:09-0500 Respiratory rate 18 /min Dr. Boston Lopez Work Phone: 9(161)380-105254 [place] [address] 08-18-2023 22:09-0500 SaO2% (BldA) [Mass fraction] 99 % Dr. Boston Lopez Work Phone: 6(426)784-120754 [place] [address] 08-18-2023 22:09-0500 Systolic blood pressure 120 mm[Hg] Dr. Boston Lopez Work Phone: 8(115)110-688354 [place] [address] 08-02-2023 14:38-0500 Body height 170.[address] Boston Lopez Work Phone: 1(211)776-652354 [place] [address] 08-02-2023 14:37-0500 Body mass index (BMI) [Ratio] 24.8 kg/m2 Dr. Boston Lopez Work Phone: 9(075)134-419854 [place] [address] 08-02-2023 14:37-0500 Body weight 71.[address] Boston Lopez Work Phone: [facility] 08-02-2023 14:37-0500 Diastolic blood pressure 80 mm[Hg] Dr. Boston Lopez Work Phone: [facility] 08-02-2023 14:37-0500 Systolic blood pressure 126 mm[Hg] Dr. Boston Lopez Work Phone: [facility] 07-09-2023 15:49-0500 Diastolic blood pressure 73 mm[Hg] [facility] 07-09-2023 15:49-0500 Heart rate 64 /min [facility] 07-09-2023 15:49-0500 Respiratory rate 16 /min [facility] 07-09-2023 15:49-0500 SaO2% (BldA) [Mass fraction] 99 % [facility] 07-09-2023 15:49-0500 Systolic blood pressure 134 mm[Hg] [facility] 07-09-2023 13:46-0500 Body height 170.18 cm [facility] 07-09-2023 13:46-0500 Body mass index (BMI) [Ratio] 24.3 kg/m2 [facility] 07-09-2023 13:46-0500 Body temperature 96.6 [degF] [facility] 07-09-2023 13:46-0500 Body weight 70.3 kg [facility] 03-05-2023 14:42-0400 Body temperature 97.2 [degF] [facility] 03-05-2023 14:42-0400 Diastolic blood pressure 79 mm[Hg] [facility] 03-05-2023 14:42-0400 Heart rate 76 /min [facility] 03-05-2023 14:42-0400 Respiratory rate 18 /min [facility] 03-05-2023 14:42-0400 SaO2% (BldA) [Mass fraction] 100 % [facility] 03-05-2023 14:42-0400 Systolic blood pressure 112 mm[Hg] [facility] 03-05-2023 11:08-0400 Body height 170.18 cm [facility] 03-05-2023 11:08-0400 Body mass index (BMI) [Ratio] 23.6 kg/m2 [facility] 03-05-2023 11:08-0400 Body weight 68.22 kg [facility] 02-01-2023 18:39-0400 Body temperature 98.29 [degF] Boston Lopez MD Work Phone: [facility] 02-01-2023 18:39-0400 Body weight 67.59 kg Boston Lopez MD Work Phone: [facility] 02-01-2023 18:39-0400 Diastolic blood pressure 70 mm[Hg] Boston Lopez MD Work Phone: [facility] 02-01-2023 18:39-0400 Heart rate 91 /min Boston Lopez MD Work Phone: [facility] 02-01-2023 18:39-0400 SaO2% (BldA) [Mass fraction] 98 % Boston Lopez MD Work Phone: [facility] 02-01-2023 18:39-0400 Systolic blood pressure 104 mm[Hg] Boston Lopez MD Work Phone: [facility] 08-01-2022 13:27-0500 Body height 170.2 cm Destiney Mccarthy APRN.CORE WINDER MACHINE OPERATOR Work Phone: [facility] 08-01-2022 13:27-0500 Body weight 66.68 kg Destiney Mccarthy APRN.CORE WINDER MACHINE OPERATOR Work Phone: [facility] 08-01-2022 13:27-0500 Diastolic blood pressure 62 mm[Hg] Destiney Mccarthy APRN.CORE WINDER MACHINE OPERATOR Work Phone: [facility] 08-01-2022 13:27-0500 Systolic blood pressure 100 mm[Hg] Destiney Mccarthy APRN.CORE WINDER MACHINE OPERATOR Work Phone: [facility] 07-25-2022 13:02-0500 Body height 172 cm Boston Lopez MD Work Phone: [facility] 07-25-2022 13:02-0500 Body weight 66.22 kg Boston Lopez MD Work Phone: [facility] 07-25-2022 13:02-0500 Diastolic blood pressure 70 mm[Hg] Boston Lopez MD Work Phone: [facility] 07-25-2022 13:02-0500 Heart rate 99 /min Boston Lopez MD Work Phone: [facility] 07-25-2022 13:02-0500 Respiratory rate 16 /min Boston Lopez MD Work Phone: [facility] 07-25-2022 13:02-0500 SaO2% (BldA) [Mass fraction] 99 % Boston Lopez MD Work Phone: [facility] 07-25-2022 13:02-0500 Systolic blood pressure 110 mm[Hg] Boston Lopez MD Work Phone: [facility] 04-30-2017 16:33-0400 BMI (Body Mass Index) 23.63 kg/m2 Luisa Grover LPN [facility] Work Phone: 04-30-2017 16:33-0400 Body Temperature 98.8 [degF] Luisa Reilly GROSSMAN [facility] Work Phone: 04-30-2017 16:33-0400 BP Diastolic 74 mm[Hg] Luisa Reilly JAIMEN [facility] Work Phone: 04-30-2017 16:33-0400 BP Systolic 104 mm[Hg] Luisa Grover LPN [facility] Work Phone: 04-30-2017 16:33-0400 Height 172.72 cm Luisa Reilly [facility] Work Phone: 04-30-2017 16:33-0400 Pulse (Heart Rate) 83 /min Luisa Grover LPN [facility] Work Phone: 04-30-2017 16:33-0400 Respiratory Rate 14 /min Luisa Grover LPN [facility] Work Phone: 04-30-2017 16:33-6650 Weight 70.49 kg Luisa Grover CHAUNCEY [facility] Work Phone: Encounters Encounter Date Encounter Type Care Provider Facility Start: 09-15-2024 End: 09-15-2024 Follow-up encounter Boston Lopez MD Work Phone: [facility] Start: 09-15-2024 End: 09-15-2024 ambulatory BOSTON LOPEZ Facility:[facility] Start: 08-27-2024 Encounter for genera l adult medical examination without abnormal findings BOSTON LOPEZ [facility] Start: 08-27-2024 End: 08-27-2024 Subsequent hospital visit by physician Yarely On License Of [facility] Work Phone: Radiology Comment on above: Well adult exam [Z00 .00] Start: 08-27-2024 End: 08-27-2024 ambulatory BOSTON Ken JOHN Facility:[facility] Start: 08-27-2024 End: 08-27-2024 Patient encounter procedure Boston Lopez MD Work Phone: [facility] Comment on above: Well adult exam (Jeny angel luis Dx); Chest pain, unspecified type; Encounter for screening examination for other mental health and behavioral disorders; Screening for depression Start: 08-27-2024 End: 08-27-2024 Patient encounter status Boston Lopez MD Work Phone: [facility] Start: 08-27-2024 End: 08-27-2024 ambulatory BOSTON LOPEZ Facility:[facility] Start: 06-05-2024 End: 06-05-2024 Office outpatient visit 15 minutes Jesica Johnson TOOL INSPECTOR.LAST DIPPER Work Phone: [facility] Comment on above: Sinobronchitis (Prim danish Dx); Acute cough; Fever, unspecified fever cause Start: 06-05-2024 End: 06-05-2024 ambulatory JESICA JOHNSON Facility:[facility] Start: 06-03-2024 End: 06-03-2024 ambulatory Boston Lopez MD Work Phone: [facility] Comment on above: Chest Pain Start: 04-01-2024 End: 04-01-2024 ambulatory Nicolle Molina Yolis Facility:[facility] Start: 03-24-2024 End: 03-24-2024 [facility] Start: 03-17-2024 End: 03-17-2024 [facility] Start: 03-04-2024 End: 03-04-2024 ambulatory Nicolle Molina Yolis Facility:[facility] Start: 02-25-2024 End: 02-25-[address] [facility] Facility:[facility] Start: 02-23-2024 End: 02-23-2024 Emergency department patient visit TEMP ID [id number] [facility] Start: 02-19-2024 ambulatory Nicolle Jesse Mendez cility:[facility] Start: 02-19-2024 End: 02-22-2024 Evaluation and management of inpatient [facility] Facility:[facility] Start: 02-19-2024 End: 02-19-[address] [facility] Facility:[facility] Start: 02-12-2024 End: 02-12-2024 ambulatory Nicolle Sunlisa Facility:[facility] Start: 02-12-2024 End: 02-12-[address] [facility] Facility:[facility] Start: 02-11-2024 End: 02-11-[address] [facility] Facility:[facility] Start: 02-11-2024 End: 02-11-2024 ambulatory Nicolle Molina Yolis Facility:[facility] Start: 02-05-2024 End: 02-05-[address] [facility] Facility:[facility] Start: 01-24-2024 End: 01-24-2024 ambulatory [facility] Start: 01-16-2024 ambulatory Nicolle Jesse Mendez cility:[facility] Start: 01-16-2024 End: 01-16-2024 ambulatory Nicolle Massey Facility:[facility] Start: 01-14-2024 End: 01-14-2024 ambulatory Nicolle Massey Facility:[facility] Start: 01-05-2024 ambulatory Raven Iverson y:[facility] Start: 01-05-2024 End: 01-05-2024 ambulatory Raven Herrera Facility:[facility] Start: 12-27-2023 End: 12-27-2023 ambulatory Roger Marshall Facility:[facility] Start: 12-25-2023 End: 12-25-2023 ambulatory TRUNG CANELA [facility] Start: 12-11-2023 End: 12-11-2023 ambulatory Roger Marshall Facility:[facility] Start: 12-11-2023 End: 12-11-2023 ambulatory Roger Marshall Facility:[facility] Start: 12-03-2023 End: 12-03-[address] Boston Lopez Work Phone: [facility] Work Phone: Start: 12-03-2023 End: 12-03-[address] Boston Lopez Work Phone: [facility] Work Phone: Start: 12-03-2023 End: 12-03-2023 ambulatory Nicolle Massey Facility:[facility] Start: 11-29-2023 End: 11-29-2023 ambulatory BOSTON Rogers [facility] Start: 11-05-2023 End: 11-05-[address] Boston Lopez Work Phone: [facility] Work Phone: Start: 11-05-2023 End: 11-05-2023 ambulatory Nicolle Massey Facility:[facility] Start: 11-01-2023 End: 11-01-2023 [facility] Start: 10-11-2023 End: 10-11-2023 ambulatory HINA Wooten PATY [facility] Start: 10-11-2023 End: 10-11-[address] Boston Lopez Work Phone: [facility] Work Phone: Start: 10-11-2023 End: 10-11-2023 ambulatory Kari Vanegas Facility:[facility] Start: 10-04-2023 End: 10-04-[address] Boston Lopez Work Phone: [facility] @ Start: 10-04-2023 End: 10-04-2023 ambulatory Boston Carlstadt Facility:[facility] Start: 09-27-2023 End: 09-27-[address] Boston Lopez Work Phone: [facility] @ Start: 09-27-2023 End: 09-27-2023 [facility] Start: 09-21-2023 End: 09-21-[address] Boston Lopez Work Phone: [facility] Work Phone: Start: 09-21-2023 End: 09-21-[address] Boston Lopez Work Phone: [facility] Specimen Work Phone: Start: 09-21-2023 End: 09-21-[address] Boston Lopez Work Phone: [facility] Work Phone: Start: 09-21-2023 End: 09-21-2023 ambulatory Boston Lopez Facility:[facility] Start: 09-21-2023 End: 09-21-2023 ambulatory Boston Carlstadt [facility] Start: 09-12-2023 End: 09-12-[address] Boston Lopez Work Phone: [facility] Work Phone: Start: 09-12-2023 End: 09-12-2023 ambulatory Boston John Facility:[facility] Start: 08-28-2023 End: 08-28-[address] Bosotn Lopez Work Phone: [facility] Work Phone: Start: 08-28-2023 End: 08-28-[address] Boston Lopez Work Phone: [facility] Work Phone: Start: 08-28-2023 End: 08-28-[address] [facility] Facility:[facility] Start: 08-18-2023 End: 08-19-2023 Emergency department patient visit Dr. Boston Lopez Work Phone: [facility] Work Phone: Start: 08-02-2023 End: 08-02-[address] Boston Lopez Work Phone: [facility] Work Phone: Start: 08-02-2023 End: 08-02-[address] Boston Lopez Work Phone: [facility] Start: 08-02-2023 End: 08-02-[address] Boston Lopez Work Phone: [facility] Work Phone: Start: 08-02-2023 End: 08-02-[address] [facility] Facility:[facility] Start: 08-02-2023 End: 08-02-[address] [facility] Facility:[facility] Start: 07-17-2023 End: 07-17-2023 ambulatory [facility] Work Phone: Start: 07-17-2023 End: 07-17-2023 Patient encounter procedure [facility], [facility] Work Phone: Start: 07-17-2023 End: 07-17-2023 ambulatory Nicolle Massey Facility:[facility] Start: 07-11-2023 End: 07-11-2023 ambulatory [facility] Work Phone: Start: 07-11-2023 End: 07-11-2023 Patient encounter procedure [facility] Work Phone: Start: 07-11-2023 End: 07-11-2023 ambulatory Nicolle Massey Facility:[facility] Start: 07-09-2023 End: 07-09-2023 Emergency department patient visit [facility] Work Phone: Start: 07-09-2023 End: 07-09-2023 Patient encounter procedure [facility] Work Phone: Start: 07-09-2023 End: 07-09-2023 ambulatory Nicolle Jesse Lagos Facility:[facility] Start: 03-29-2023 End: 03-29-2023 ambulatory Boston Lopez MD Work Phone: [facility] Comment on above: Brittle nails (Prima ry Dx); Hair loss; Family history of thyroid disease Start: 03-29-2023 End: 03-29-2023 Telemedicine consultation with patient Boston Lopez MD Work Phone: [facility] Start: 03-05-2023 End: 03-05-2023 Admission to same day surgery center [facility] Start: 03-05-2023 End: 03-05-2023 ambulatory [facility] Work Phone: Start: 02-01-2023 End: 02-01-2023 Patient encounter procedure Boston Lopez MD Work Phone: [facility] Comment on above: Erythema migrans (Pr imary Dx) Start: 01-31-2023 End: 01-31-2023 ambulatory [facility] Work Phone: Start: 01-31-2023 End: 01-31-2023 Patient encounter procedure [facility] Specimen Work Phone: Start: 01-19-2023 End: 01-19-2023 ambulatory [facility] Work Phone: Start: 01-19-2023 End: 01-19-2023 Patient encounter procedure [facility] [place] lean process deployment consultant Off Start: 10-30-2022 End: 10-30-2022 ambulatory [facility] Work Phone: Start: 10-30-2022 End: 10-30-2022 Patient encounter procedure [facility] [place] lean process deployment consultant Off Start: 08-01-2022 End: 08-01-2022 Patient encounter procedure Destiney Mccarthy APRN.CORE WINDER MACHINE OPERATOR Work Phone: OB/Gynecology Comment on above: Encounter for gyneco logical examination (general) (routine) without abnormal findings (Primary Dx); Screening for cervical cancer; Screen for STD (sexually transmitted disease) Start: 08-01-2022 End: 08-01-2022 Patient encounter status Destiney Mccarthy APRN.CORE WINDER MACHINE OPERATOR Work Phone: OB/Gynecology Start: 07-26-2022 Telephone encounter Boston Lopez MD Work Phone: [facility] Comment on above: Results Start: 07-25-2022 End: 07-25-2022 Subsequent hospital visit by physician Xr On License [facility] Work Phone: Radiology Comment on above: Pain of finger of le ft hand [M79.645] Start: 07-25-2022 End: 07-25-2022 Patient encounter procedure Boston Lopez MD Work Phone: [facility] Comment on above: Well adult exam (Jeny angel luis Dx); Pain of finger of left hand; Screening for cervical cancer; Acute cough; Screening for lipid disorders; Screening for diabetes mellitus (DM) Start: 07-25-2022 End: 07-25-2022 Patient encounter status Boston Lopez MD Work Phone: [facility] Start: 11-29-2021 End: 11-29-2021 Patient encounter procedure [facility] Start: 01-11-2021 Encounter for gynecological examination (general) (routine) without abnormal findings ROXANN THURSTON DO [facility] Start: 01-06-2021 End: 01-06-2021 ambulatory ROXANN THURSTON DO Facility:[facility] Start: 10-17-2017 End: 10-17-2017 Ambulatory Ann Juan Facility:[facility] Procedures Date Procedure Procedure Detail Performing Clinician Start: 08-27-2024 Radiologic exam ches t 2 views Boston Lopez MD Work Phone: Start: 08-27-2024 Ecg routine ecg w/le ast 12 lds i&r only Boston Lopez MD Work Phone: Start: 08-27-2024 Adult depression scr eening assessment Boston Lopez MD Work Phone: Start: 09-21-[address] Bhanu Lopez Work Phone: Start: 09-21-2023 Investigation of tra nsfusion reaction Dr. Boston Lopez Work Phone: Start: 09-21-[address] Tito Lopez Work Phone: Start: 08-28-[address] Bhanu Lopez Work Phone: Start: 08-28-2023 Investigation of tra nsfusion reaction Dr. Boston Lopez Work Phone: Start: 08-02-[address] Tito Lopez Work Phone: Start: 07-17-2023 Transvaginal obstetr ic ultrasonography Start: 07-09-2023 Transvaginal obstetr ic ultrasonography Start: 03-05-2023 Dilation and curetta ge of uterus Start: 01-31-2023 Investigation of tra nsfusion reaction Start: 01-31-2023 Microbial culture, routine Start: 01-19-2023 Urine culture Start: 08-01-2022 Cytp c/v auto thin l yr prepj scr mnl rescr phys Destiney Mccarthy APRN.CORE WINDER MACHINE OPERATOR Work Phone: Start: 07-25-2022 Radex hand minimum 3 views Boston Lopez MD Work Phone: Start: 07-25-2022 COVID WITH FLUA+B, ROUTINE Boston oLpez MD Work Phone: Urine culture Plan of Treatment Date Care Activity Detail Author Start: 12-26-2033 Urine microalbumin profile DTa P,Tdap,Td Vaccine (2 - Td or Tdap) [facility] Start: 08-27-2025 Anxiety Screening Anxiety Screening [facility] Start: 08-27-2025 Covid-19 Vaccine ( season) Covid-19 Vaccine ( season) [facility] Comment on above: Postponed from 03/30 (Declined at this time) Start: 08-27-2025 Depression Screening Depression Scre ening [facility] Start: 08-01-2025 PAP TESTING PAP TESTING [facility] Start: 08-01-2025 Screening for malign ant neoplasm of cervix Cervical Cancer Screening [facility] Start: 01-26-2025 Influenza vaccination Influenza Vacc ine (#1) [facility] Comment on above: Postponed from 03/30 (Declined at this time) Start: 09-15-2024 End: 09-15-2024 Patient encounter procedure 09/15/2024 8:00 AM EST Office Visit Cardiology [address] [place] [address] Chest pain, unspecified type [R07.9] Cardiology Comment on above: Chest pain, unspecif ied type [R07.9] Start: 03-30-2024 Covid-19 Vaccine ( season) Covid-19 Vaccine ( season) [facility] Start: 03-30-2024 Covid-19 Vaccine ( season) Covid-19 Vaccine ( season) [facility] Start: 03-30-2024 Covid-19 Vaccine ( season) Covid-19 Vaccine () [facility] Start: 03-30-2024 Influenza vaccination Influenza Vacc ine (#1) [facility] Start: 08-19-2023 [facility] Start: 08-02-2023 Liquid based cervica l cytology screening [facility] Start: 03-30-2023 Influenza vaccination INFLUENZA (#1) [facility] Start: 03-29-2023 End: 05-29-2023 CBC W Auto Differential panel - Blood CBC + DIFF Lab Routine Brittle nails Hair loss Family history of thyroid disease Expected: 03/29/2023, Expires: 05/29/2023 [facility] Work Phone: Comment on above: Expected: 03/29/2023 , Expires: 05/29/2023 Start: 03-29-2023 End: 05-29-2023 Comprehensive metabolic 2000 panel - Serum or Plasma COMP METABOLIC PANEL Lab Routine Brittle nails Hair loss Family history of thyroid disease Expected: 03/29/2023, Expires: 05/29/2023 [facility] Work Phone: Comment on above: Expected: 03/29/2023 , Expires: 05/29/2023 Start: 03-29-2023 End: 05-29-2023 T4/FTI/T4U T4/FTI/T4U Lab Routine Brittle nails Hair loss Family history of thyroid disease Expected: 03/29/2023, Expires: 05/29/2023 [facility] Work Phone: Comment on above: Expected: 03/29/2023 , Expires: 05/29/2023 Start: 03-29-2023 End: 05-29-2023 Thyrotropin [Units/volume] in Serum or Plasma TSH BLD Lab Routine Brittle nails Hair loss Family history of thyroid disease Expected: 03/29/2023, Expires: 05/29/2023 [facility] Work Phone: Comment on above: Expected: 03/29/2023 , Expires: 05/29/2023 Start: 03-29-2023 End: 05-29-2023 Triiodothyronine (T3) [Mass/volume] in Serum or Plasma T3 BLD Lab Routine Brittle nails Hair loss Family history of thyroid disease Expected: 03/29/2023, Expires: 05/29/2023 [facility] Work Phone: Comment on above: Expected: 03/29/2023 , Expires: 05/29/2023 Start: 03-05-2023 Patient discharge [facility] Start: 03-05-2023 Ambulation without limitation [facility] Start: 03-05-2023 Medication education [facility] Start: 03-05-2023 Planned voiding [facility] Start: 03-05-2023 Taking patient vital signs [facility] Start: 03-05-2023 Vital signs measurements [facility] Start: 03-05-2023 End: 03-05-2023 [facility] Start: 02-01-2023 End: 04-03-2023 Borrelia burgdorferi IgG and IgM panel - Serum LYME AB EARLY <=30 DAY SYMPTOMS Lab Routine Erythema migrans Expected: 02/01/2023, Expires: 04/03/2023 [facility] Work Phone: Comment on above: Expected: 02/01/2023 , Expires: 04/03/2023 Start: 02-01-2023 End: 04-03-2023 CBC W Auto Differential panel - Blood CBC + DIFF Lab Routine Erythema migrans Expected: 02/01/2023, Expires: 04/03/2023 [facility] Work Phone: Comment on above: Expected: 02/01/2023 , Expires: 04/03/2023 Start: 02-01-2023 End: 04-03-2023 Erythrocyte sedimentation rate SED RATE WESTERGREN Lab Routine Erythema migrans Expected: 02/01/2023, Expires: 04/03/2023 [facility] Work Phone: Comment on above: Expected: 02/01/2023 , Expires: 04/03/2023 Start: 01-26-2023 Influenza vaccination INFLUENZA (#1) [facility] Comment on above: Postponed from 03/30 (Declined at this time) Start: 01-23-2023 End: 03-25-2023 Lipid 1996 panel - Serum or Plasma LIPID PANEL BASIC Lab Routine Screening for lipid disorders Expected: 01/23/2023, Expires: 03/25/2023 [facility] Work Phone: Comment on above: Expected: 01/23/2023 , Expires: 03/25/2023 Start: 07-30-2022 DEPRESSION ASSESSMENT DEPRESSION ASS ESSMENT [facility] Start: 07-25-2022 End: 09-24-2022 Fasting glucose [Mass/volume] in Serum or Plasma GLUCOSE FASTING BLD Lab Routine Screening for diabetes mellitus (DM) Expected: 07/25/2022, Expires: 09/24/2022 [facility] Work Phone: Comment on above: Expected: 07/25/2022 , Expires: 09/24/2022 Start: 04-30-2017 End: 04-30-2017 Appointment Appointment [facility] Work Phone: Start: 2016 PAP TESTING PAP TESTING [facility] Start: 2014 Urine microalbumin profile [facility] Start: 2013 Anxiety Screening Anxiety Screening [facility] Start: 2013 Depression Screening Depression Scre ening [facility] Start: 1995 COVID-19 VACCINE (#1) COVID-19 VACCI NE (#1) [facility] ECG COMPLETE ECG COMPLETE ECG Routine Chest pain, unspecified type 08/27/2024 1:15 PM EST [facility] End: 08-27-2025 Echocardiography ECHO Cardiology Routine Chest pain, unspecified type 1 Occurrences starting 08/27/2024 until 08/27/2025 [facility] Work Phone: Comment on above: 1 Occurrences starti ng 08/27/2024 until 08/27/2025 Patient Education [facility] Work Phone: Patient referral [facility] Work Phone: Source specific culture [facility] End: 07-05-2025 XR Chest PA and Lateral XR CHEST 2V FRONTAL/LAT Radiology STAT Acute cough Fever, unspecified fever cause Sinobronchitis 1 Occurrences starting 06/05/2024 until 07/05/2025 [facility] Work Phone: Comment on above: 1 Occurrences starti ng 06/05/2024 until 07/05/2025 [facility] Payers Date Payer Category Payer Self-pay [id number] 2022 Private Health Insurance MMO SUP ER[employer] PPO Member Subscriber Plan / Payer (Effective 2022-Present) Name: Kim Lott Relation to Subscriber: Self Name: Kim Lott Payer ID: Not on file Type: PPO Address: [place] [id number] 2022 Unknown [id number] 2017 Unknown 2004 Unknown [id number] 1995 Unknown [id number] .1.612099.3.579.2. 419 1995 Unknown [id number] ..1.050834.3.579.2. 479 1995 Unknown [id number] .1.013880.3.579.2. 479 1995 Unknown [id number] 09.14.830.1.889008.3.579.2. 479 1995 Unknown [id number] .1.435248.3.579.2. 479 1995 Unknown [id number] 09.14.830.1.868372.3.579.2. 479 Private Health Insurance [address] [id number] Unknown [id number] Unknown [id number] Unknown [id number] 09.14.830.1.393874.3.579.2. 462 Unknown [id number] 09.14.830.1.406021.3.579.2. 462 Unknown [id number] 20.1.141483.3.579.2. 462 Unknown [id number] 2.16.840.1.197590.3.579.2. 462 Unknown [id number] 2.16840.1.436405.3.579.2. 462 Unknown [id number] 2.16840.1.849534.3.579.2. 462 Unknown [id number] 2.16840.1.156534.3.579.2. 462 Unknown [id number] 2.840.1.323548.3.579.2. 462 Unknown [id number] 2.840.1.952492.3.579.2. 462 Unknown [id number] 2.840.1.735302.3.579.2. 462 Unknown [id number] 2.840.1.431524.3.579.2. 462 Unknown [id number] 2.840.1.687128.3.579.2. 462 Unknown [id number] 2.840.1.451775.3.579.2. 462 Unknown [id number] 2.840.1.134638.3.579.2. 462 Unknown [id number] 2.840.1.994040.3.579.2. 462 Unknown [id number] 2.840.1.157065.3.579.2. 462 Unknown [id number] 2.840.1.734108.3.579.2. 462 Unknown [id number] .840.1.377029.3.579.2. 462 Unknown [id number] .840.1.828666.3.579.2. 462 Unknown [id number] 2.840.1.537385.3.579.2. 462 Unknown [id number] 2.840.1.862138.3.579.2. 462 Unknown [id number] 2.840.1.626917.3.579.2. 462 Unknown [id number] 2.16.840.1.788065.3.579.2. 462 Unknown [id number] 2.840.1.295661.3.579.2. 462 Unknown [id number] 2.16.840.1.847983.3.579.2. 462 Unknown [id number] 2.16.840.1.684044.3.579.2. 462 Unknown [id number] 2.840.1.014344.3.579.2. 462 Unknown [id number] 2.840.1.553931.3.579.2. 462 Unknown [id number] 2.840.1.665144.3.579.2. 462 Unknown [id number] 2.840.1.516386.3.579.2. 462 Unknown [id number] 2.840.1.819871.3.579.2. 462 Unknown [id number] 2.840.1.455043.3.579.2. 462 Unknown [id number] .840.1.818530.3.579.2. 462 Unknown [id number] 2.840.1.061469.3.579.2. 462 Unknown [id number] 2.840.1.928994.3.579.2. 462 Unknown [id number] .840.1.754413.3.579.2. 462 Unknown [id number] .840.1.342731.3.579.2. 462 Unknown [id number] 2..840.1.097753.3.579.2. 462 Unknown [id number] 2.840.1.682564.3.579.2. 462 Unknown [id number] 2.840.1.481050.3.579.2. 462 Unknown [id number] 2.840.1.738660.3.579.2. 462 Unknown [id number] 2.16.840.1.887126.3.579.2. 462 Unknown [id number] 2.16.840.1.720596.3.579.2. 462 Social History Date Type Detail Facility Start: 12-09-2017 End: 07-09-2023 Tobacco smoking status NHIS Unknown if ever smoked [facility] Start: 1995 Sex Assigned At Female [facility] Start: 07-25-2022 Tobacco smoking stat us NHIS Never smoked tobacco [facility] Start: 07-25-2022 Tobacco use and exposure Smoke less tobacco non-user [facility] Start: 07-18-2022 History SDOH Alcohol Frequency 2 [facility] Start: 07-18-2022 History SDOH Social Connections Phone 5 [facility] Start: 07-18-2022 History SDOH Social Connections Sikhism 3 [facility] Start: 07-18-2022 History SDOH Social Connections Membership 1 [facility] Start: 1995 Sex Assigned At Not on file [facility] Start: 08-01-2022 End: 08-27-2024 Alcohol intake Current drinker of alcohol (finding) [facility] Start: 08-01-[address] [facility] Start: 07-18-2022 End: 02-01-2023 History of Social function [facility] Start: 07-18-2022 End: 02-01-2023 Social connection and isolation panel [facility] Do you belong to any clubs or organizations such as gnosticism groups, unions, fraternal or athletic groups, or school groups? Yes [facility] Are you now , , , , never or living with a partner? [facility] How often to you hav e a drink containing alcohol? Monthly or less [facility] How many standard dr inks containing alcohol do you have on a typical day? 3 or 4 [facility] How often do you hav e 6 or more drinks on 1 occasion? Less than monthly [facility] How hard is it for y ou to pay for the very basics like food, housing, medical care, and heating Not hard at all [facility] Do you feel stress - tense, restless, nervous, or anxious, or unable to sleep at night because your mind is troubled all the time - these days [OSQ] Not at all [facility] (I/We) worried [facility] er (my/our) food would run out before (I/we) got money to buy more. Never true [facility] In the past 12 month s, was there a time when you were not able to pay the mortgage or rent on time? No [facility] Tobacco smoking status No Smokin g Status Entered [facility] How many standard dr inks containing alcohol do you have on a typical day? 1 or 2 [facility] How often do you hav e 6 or more drinks on 1 occasion? Never [facility] Do you feel stress - tense, restless, nervous, or anxious, or unable to sleep at night because your mind is troubled all the time - these days [OSQ] To some extent [facility] Start: 08-07-2024 Gender identity Identifies as female gender (finding) [facility] Goals Date Patient Goal Desired Activity /State Mental Status Date Assessment Result Facility 03-05-2023 Cognitive function Voice/Name;Touch/Guevara arellano [facility] Work Phone: Clinical Notes 07-25-2022 to 09-15-2024 Telephone Encounter - Margaux Giron LPN - 09/15/2024 4:10 PM ESTTelephone Encounter - Margaux Giron LPN - 09/15/2024 4:10 PM ESTTelephone Encounter - Danni Muse LPN - 09/15/2024 1:26 PM EST Note Date & Type Note Facility 09-15-2024 Telephone encount er Note PATIENT NOTIFIED OF SAME. [facility] 09-15-2024 Miscellaneous Notes Formattin g of this note might be different from the original. PATIENT NOTIFIED OF SAME. Left message to call and speak with nurse. ----- Message from Boston Lopez MD sent at 09/15/2024 10:11 AM EST ----- Please let her know her echo is ok. documented in this encounter [facility] 09-15-2024 Telephone encount er Note Left message to call and speak with nurse. [facility] 09-15-2024 Telephone encount er Note ----- Message from Boston Lopez MD sent at 09/15/2024 10:11 AM EST ----- Please let her know her echo is ok. [facility] 08-27-2024 History of Presen t illness Narrative Radiology Service Progress Note PATIENT NAME: Kim Lott DATE OF SERVICE: August 27, 2024 TIME: 1:45 PM PATIENT IDENTITY VERIFICATION COMPLETED USING TWO (2) IDENTIFIERS: Name and Date of confirmed by patient verbally. FALL SCREENING: Has the patient had 2 falls in the last year or 1 fall with injury or currently using an Ambulatory Assistive Device (Walker, Cane, Wheelchair, Crutches, etc.)? No PATIENT GENDER DATA: Assigned female at . status: : No status: NO. PATIENT RELEVANT IMPLANT DATA REVIEWED: Not Applicable PATIENT PRESENTS WITH AN IMPLANTABLE OR ATTACHED PRESCHOOL PRINCIPAL: No RADIOLOGY DEPARTMENT: General X-ray: Exam(s) Completed: Chest X-Ray PERIPHERAL IV DATA: Not applicable SIGNED BY: RT Mendoza(R) August 27, 2024 1:45 PM documented in this encounter [facility] 08-27-2024 Note HNO ID: [id number] Author: VALERI MARLOW RT(Fred) Service: Radiology Author Type: Technologist Type: Progress Notes Filed: 08/27/2024 13:51 Note Text: Radiology Service Progress Note PATIENT NAME: Kim Lott DATE OF SERVICE: August 27, 2024 TIME: 1:45 PM PATIENT IDENTITY VERIFICATION COMPLETED USING TWO (2) IDENTIFIERS: Name and Date of confirmed by patient verbally. FALL SCREENING: Has the patient had 2 falls in the last year or 1 fall with injury or currently using an Ambulatory Assistive Device (Walker, Cane, Wheelchair, Crutches, etc.)? No PATIENT GENDER DATA: Assigned female at . status: : No status: NO. PATIENT RELEVANT IMPLANT DATA REVIEWED: Not Applicable PATIENT PRESENTS WITH AN IMPLANTABLE OR ATTACHED PRESCHOOL PRINCIPAL: No RADIOLOGY DEPARTMENT: General X-ray: Exam(s) Completed: Chest X-Ray PERIPHERAL IV DATA: Not applicable SIGNED BY: RT Mendoza(R) August 27, 2024 1:[address] [facility] 08-27-2024 Note HNO ID: [id number] Author: BOSTON LOPEZ MD Service: ? Author Type: Physician Type: Progress Notes Filed: 08/27/2024 13:34 Note Text: Patient presents with: Physical HPI: Patient presents today for office visit for well adult exam. Physical Recent . Gave to her son on 02/19/24. Has noticed since giving while she is or pumping she will get a fleeting chest tightness. Refers to a tight squeeze and then release. Left side of chest. Lasts seconds and then goes away. Intermittent. Some days happens more frequently while other days doesn't happen at all. Last time it occurred was about two weeks ago. Denies any shortness of breath. Mentions back in 2018 or 2019 had odd sensations in her chest where she would feel like there was a bubble inside her chest. Taking a deep breath would make it feel like the bubble popped and then sensation would go away. Never evaluated for this. No swelling in the legs. No hx of dvt. Has been going on since January. Has not happened in two weeks. No cough. No chest pain with exertion No dizziness No near syncope. No palpable tenderness. No definite palpitations. Has had those issues in the past Has noticed a spot on left side of her back. Has not gotten bigger in size. No changes in size or shape. Does not itch. Has been there maybe 9 months. MEDICATIONS: No current outpatient medications on file. No current facility-administered medications for this visit. ALLERGIES: ALLERGIES Allergen Reactions Pollen Extracts Other: See Comments PAST MEDICAL HISTORY Diagnosis Date Cervical high risk HPV (human papillomavirus) test positive 2018 PAST SURGICAL HISTORY Procedure Laterality Date APPENDECTOMY HX 2004 SNGL 02/19/2024 DANDC SUCTION 03/05/2023 missed ab VAGINOSCOPY 2018 FAMILY HISTORY Problem Relation Age of Onset Hypothyroidism Mother No Known Problems Father No Known Problems Brother No Known Problems Brother Cancer Maternal Grandfather Social History Tobacco Use Smoking status: Never Smokeless tobacco: Never Vaping Use Vaping status: Never Used Substance Use Topics Alcohol use: Yes Comment: occasional Drug use: Never Reviewed current medications, allergies, past medical history, surgical history, family history and social history today. REVIEW OF SYSTEMS GENERAL: no unexplained fatigue or fever. HEENT: Negative for frequent or significant headaches, No changes in hearing or vision, no nose bleeds or other nasal problems NECK: Negative for lumps, goiter, pain and significant neck swelling RESPIRATORY: Negative for cough, hemoptysis, wheezing, COPD, dyspnea or shortness of breath CARDIOVASCULAR: as above. 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 ENDOCRINE: Negative for cold or heat intolerance, polyuria, polydipsia and goiter All other reviewed and negative other than HPI. HEALTH MAINTENANCE: Reviewed health maintenance issues today and recommended the following in detail. Depression Screening Never done Anxiety Screening Never done Influenza Vaccine(1) Never done Covid-19 Vaccine( season) due on 03/30/2024 VITALS: BP 104/67 Pulse 88 Ht 170.2 cm (5' 7) Wt 68.5 kg (151 lb) LMP 05/30/2023 (Approximate) BMI 23.65 kg/m? Last 4 Encounter Wt Readings: Date: Wt: 08/27/2024 68.5 kg (151 lb) 06/05/2024 75.6 kg (166 lb 10.7 oz) 02/01/2023 67.6 kg (149 lb) 08/01/2022 66.7 kg (147 lb) PHYSICAL EXAMINATION: General appearance: Well appearing, alert, in no acute distress, well-hydrated, well nourished. Skin: Skin color, texture, turgor normal, no suspicious rashes or lesions/ benign appearing mole on back. Head: Normocephalic, no masses, lesions, tenderness or abnormalities Eyes: Anicteric sclera. Pupils are equally round and reactive to light. Extraocular movements are intact. Ears: External ears normal, canals clear Nose/Sinuses: Nares normal, septum midline, mucosa normal, no drainage or sinus tenderness Oropharynx: Lips, mucosa, and tongue normal, teeth and gums normal, oropharynx normal Neck: Supple, no adenopathy; thyroid symmetric, normal size, no bruits Lungs: Lungs clear to auscultation. No wheezing, rhonchi, rales Heart: RRR without murmur, gallop, or rubs. No ectopy Abdomen: Normal abdominal exam, Abdomen soft, non-tender. Bowel sounds normal. No masses, organomegaly Extremities: No deformities, edema, skin discoloration, clubbing or cyanosis. Good capillary refill. Musculoskeletal: No joint swelling, deformity, or tenderness Peripheral pulses: Normal Neuro: Negative. ASSESSMENT/PLAN: 1. Well adult exam - ICD9: V70.0, ICD10: Z00.00 (primary diagnosis) Follow labs. - COMPLETE BLOOD COUNT AND DIFFERENTIAL (more content not included)... [facility] 08-27-2024 History of Presen t illness Narrative Patient presents with: Physical HPI: Patient presents today for office visit for well adult exam. Physical Recent . Gave to her son on 02/19/24. Has noticed since giving while she is or pumping she will get a fleeting chest tightness. Refers to a tight squeeze and then release. Left side of chest. Lasts seconds and then goes away. Intermittent. Some days happens more frequently while other days doesn't happen at all. Last time it occurred was about two weeks ago. Denies any shortness of breath. Mentions back in 2018 or 2019 had odd sensations in her chest where she would feel like there was a bubble inside her chest. Taking a deep breath would make it feel like the bubble popped and then sensation would go away. Never evaluated for this. No swelling in the legs. No hx of dvt. Has been going on since January. Has not happened in two weeks. No cough. No chest pain with exertion No dizziness No near syncope. No palpable tenderness. No definite palpitations. Has had those issues in the past Has noticed a spot on left side of her back. Has not gotten bigger in size. No changes in size or shape. Does not itch. Has been there maybe 9 months. MEDICATIONS: No current outpatient medications on file. No current facility-administered medications for this visit. ALLERGIES: ALLERGIES Allergen Reactions Pollen Extracts Other: See Comments PAST MEDICAL HISTORY Diagnosis Date Cervical high risk HPV (human papillomavirus) test positive 2017 PAST SURGICAL HISTORY Procedure Laterality Date APPENDECTOMY HX 2004 SNGL 02/19/2024 D&C SUCTION 03/05/2023 missed ab VAGINOSCOPY 2018 FAMILY HISTORY Problem Relation Age of Onset Hypothyroidism Mother No Known Problems Father No Known Problems Brother No Known Problems Brother Cancer Maternal Grandfather Social History Tobacco Use Smoking status: Never Smokeless tobacco: Never Vaping Use Vaping status: Never Used Substance Use Topics Alcohol use: Yes Comment: occasional Drug use: Never Reviewed current medications, allergies, past medical history, surgical history, family history and social history today. REVIEW OF SYSTEMS GENERAL: no unexplained fatigue or fever. HEENT: Negative for frequent or significant headaches, No changes in hearing or vision, no nose bleeds or other nasal problems NECK: Negative for lumps, goiter, pain and significant neck swelling RESPIRATORY: Negative for cough, hemoptysis, wheezing, COPD, dyspnea or shortness of breath CARDIOVASCULAR: as above. 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 ENDOCRINE: Negative for cold or heat intolerance, polyuria, polydipsia and goiter All other reviewed and negative other than HPI. HEALTH MAINTENANCE: Reviewed health maintenance issues today and recommended the following in detail. Depression Screening Never done Anxiety Screening Never done Influenza Vaccine(1) Never done Covid-19 Vaccine() due on 03/30/2024 VITALS: BP 104/67 Pulse 88 Ht 170.2 cm (5' 7) Wt 68.5 kg (151 lb) LMP 05/30/2023 (Approximate) BMI 23.65 kg/m Last 4 Encounter Wt Readings: Date: Wt: 08/27/2024 68.5 kg (151 lb) 06/05/2024 75.6 kg (166 lb 10.7 oz) 02/01/2023 67.6 kg (149 lb) 08/01/2022 66.7 kg (147 lb) PHYSICAL EXAMINATION: General appearance: Well appearing, alert, in no acute distress, well-hydrated, well nourished. Skin: Skin color, texture, turgor normal, no suspicious rashes or lesions/ benign appearing mole on back. Head: Normocephalic, no masses, lesions, tenderness or abnormalities Eyes: Anicteric sclera. Pupils are equally round and reactive to light. Extraocular movements are intact. Ears: External ears normal, canals clear Nose/Sinuses: Nares normal, septum midline, mucosa normal, no drainage or sinus tenderness Oropharynx: Lips, mucosa, and tongue normal, teeth and gums normal, oropharynx normal Neck: Supple, no adenopathy; thyroid symmetric, normal size, no bruits Lungs: Lungs clear to auscultation. No wheezing, rhonchi, rales Heart: RRR without murmur, gallop, or rubs. No ectopy Abdomen: Normal abdominal exam, Abdomen soft, non-tender. Bowel sounds normal. No masses, organomegaly Extremities: No deformities, edema, skin discoloration, clubbing or cyanosis. Good capillary refill. Musculoskeletal: No joint swelling, deformity, or tenderness Peripheral pulses: Normal Neuro: Negative. ASSESSMENT/PLAN: 1. Well adult exam - ICD9: V70.0, ICD10: Z00.00 (primary diagnosis) Follow labs. - COMPLETE BLOOD COUNT AND DIFFERENTIAL - COMPREHENSIVE METABOLIC PANEL - LIPID PANEL, NONFASTING - XR CHEST 2V FRONTAL/LAT 2. Chest pain, unspecified type - ICD9: 786.50, ICD10: R07.9 - atypical. ? Pleuritic component. Do labs including stat d dimer. Chest xray and echo. Red flags for re-assessment reviewed with patient in detail. - ECG COMPLETE- NSR, normal ekg - THYROID STIMULATING HORMONE - D-DIMER - ECHO - PERFLUTREN LIPID MICROSPHERES 1.1 MG/ML INJECTION IN NS 10 ML - SODIUM CHLORIDE 0.9 % (FLUSH) INJECTION SYRINGE 3. Encounter for screening examination for other mental health and behavioral disorders - ICD9: V79.8, ICD10: Z13.39 - ANXIETY SCREENING 4. Screening for depression - ICD9: V79.0, ICD10: Z13.31 - DEPRESSION SCREENING Boston Lopez MD RTO four weeks or prn. documented in this encounter [facility] 06-05-2024 Note HNO ID: [id number] Author: JESICA JOHNSON APRN.LAST DIPPER Service: ? Author Type: Nurse Specialist Type: Progress Notes Filed: 06/05/2024 14:00 Note Text: SUBJECTIVE Kim Lott is a 29 year old female who presents with 2 days of symptoms that are worsening. She reports was seen at [facility] and advised she may have walking pneumonia. Reports she was not provided medication due to breast-feeding. Has bee taking Tylenol for fever. 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 No She reports that she has never smoked. She has never used smokeless tobacco. OBJECTIVE PHYSICAL EXAM: BP 101/64 Pulse 109 Temp 37.9 ?C (100.3 ?F) Resp 16 Wt 75.6 kg (166 lb 10.7 oz) LMP 07/25/2022 SpO2 93% BMI 26.10 kg/m? General appearance: tired/ill appearing, alert, cooperative, pleasant, in no acute distress Head: Normocephalic Eyes: conjunctiva/corneas normal Ears: R TM - clear with good landmarks, nl light reflex, L TM - clear with good landmarks, nl light reflex Nose: clear rhinorrhea, mucosa erythematous and swollen Oropharynx: moist without lesions, teeth in good repair Neck: supple and small, benign anterior cervical nodes bilaterally Heart: regular rate and rhythm, without murmur Lungs: clear to auscultation, without rales or wheeze, good air exchange ASSESSMENT/PLAN (J32.9, J40) Sinobronchitis (primary encounter diagnosis) (R05.1) Acute cough (R50.9) Fever, unspecified fever cause ASSESSMENT/PLAN: 1. Sinobronchitis - ICD9: 473.9, 490, ICD10: J32.9, J40 (primary diagnosis) - AMOXICILLIN 875 MG TABLET - NEILMED NASAFLO PACKET WITH SINUS RINSE DEVICE - XR CHEST 2V FRONTAL/LAT 2. Acute cough - ICD9: 786.2, ICD10: R05.1 - AMOXICILLIN 875 MG TABLET - XR CHEST 2V FRONTAL/LAT 3. Fever, unspecified fever cause - ICD9: 780.60, ICD10: R50.9 - AMOXICILLIN 875 MG TABLET - XR CHEST 2V FRONTAL/LAT Recommend supportive care with plenty of rest and fluids. Tylenol as needed for fever. Amoxicillin for presumed bacterial infection. NeilMed sinus rinse for nasal congestion and drainage. Cough drops for cough. Let us know if not feeling improved with these measures. Chest x-ray is ordered, can complete if needed/not improving . Jesica Johnson APRN.LAST DIPPER Medical Decision Making: Problems: Low: Acute, uncomplicated illness or injury Data: Unique test(s) ordered: 1 Risk: Moderate: Drug management Medical Decision Making Level: 3 - Low [facility] 06-05-2024 History of Presen t illness Narrative SUBJECTIVE Kim Lott is a 29 year old female who presents with 2 days of symptoms that are worsening. She reports was [facility] and advised she may have walking pneumonia. Reports she was not provided medication due to breast-feeding. Has bee taking Tylenol for fever. 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 No She reports that she has never smoked. She has never used smokeless tobacco. OBJECTIVE PHYSICAL EXAM: BP 101/64 Pulse 109 Temp 37.9 C (100.3 F) Resp 16 Wt 75.6 kg (166 lb 10.7 oz) LMP 07/25/2022 SpO2 93% BMI 26.10 kg/m General appearance: tired/ill appearing, alert, cooperative, pleasant, in no acute distress Head: Normocephalic Eyes: conjunctiva/corneas normal Ears: R TM - clear with good landmarks, nl light reflex, L TM - clear with good landmarks, nl light reflex Nose: clear rhinorrhea, mucosa erythematous and swollen Oropharynx: moist without lesions, teeth in good repair Neck: supple and small, benign anterior cervical nodes bilaterally Heart: regular rate and rhythm, without murmur Lungs: clear to auscultation, without rales or wheeze, good air exchange ASSESSMENT/PLAN (J32.9, J40) Sinobronchitis (primary encounter diagnosis) (R05.1) Acute cough (R50.9) Fever, unspecified fever cause ASSESSMENT/PLAN: 1. Sinobronchitis - ICD9: 473.9, 490, ICD10: J32.9, J40 (primary diagnosis) - AMOXICILLIN 875 MG TABLET - NEILMED NASAFLO PACKET WITH SINUS RINSE DEVICE - XR CHEST 2V FRONTAL/LAT 2. Acute cough - ICD9: 786.2, ICD10: R05.1 - AMOXICILLIN 875 MG TABLET - XR CHEST 2V FRONTAL/LAT 3. Fever, unspecified fever cause - ICD9: 780.60, ICD10: R50.9 - AMOXICILLIN 875 MG TABLET - XR CHEST 2V FRONTAL/LAT Recommend supportive care with plenty of rest and fluids. Tylenol as needed for fever. Amoxicillin for presumed bacterial infection. NeilMed sinus rinse for nasal congestion and drainage. Cough drops for cough. Let us know if not feeling improved with these measures. Chest x-ray is ordered, can complete if needed/not improving . Jesica Johnson, TOOL INSPECTOR.KEYANA Medical Decision Making: Problems: Low: Acute, uncomplicated illness or injury Data: Unique test(s) ordered: 1 Risk: Moderate: Drug management Medical Decision Making Level: 3 - Low documented in this encounter [facility] 06-03-2024 Telephone encount er Note Patient call in for chest pain when taking a deep breath. Patient states that it hurts to take a deep breath. When she takes a deep breath she is fine. Patient denies cold symptoms. Patient states that she was dizzy x 1 time last night. Nurse Triage assessment completed with protocol recommending for disposition of Go to ED now. Care advice reviewed with patient, patient stated understanding. Reason for Disposition Taking a deep breath makes pain worse Answer Assessment - Initial Assessment Questions 1. LOCATION: Hurts when she takes a deep breath; hurts to breath and then she cough. 2. RADIATION: Denies Radiation 3. ONSET: Started during the night around 11 PM 4. PATTERN Only when she takes a deep breath 5. DURATION: A couple seconds until she coughs, then she feels better. 6. SEVERITY: Patient rates pain 3 out of 10. 7. CARDIAC RISK FACTORS: Denies 8. PULMONARY RISK FACTORS: Denies 9. CAUSE: Unsure 10. OTHER SYMPTOMS: Joints feel achy, last night she felt like dizzy, cough, difficulty breathing Protocols used: Chest Mgrt-SCLOJ-RG [facility] 06-03-2024 Miscellaneous Notes Formattin g of this note might be different from the original. Patient call in for chest pain when taking a deep breath. Patient states that it hurts to take a deep breath. When she takes a deep breath she is fine. Patient denies cold symptoms. Patient states that she was dizzy x 1 time last night. Nurse Triage assessment completed with protocol recommending for disposition of Go to ED now. Care advice reviewed with patient, patient stated understanding. Reason for Disposition Taking a deep breath makes pain worse Answer Assessment - Initial Assessment Questions 1. LOCATION: Hurts when she takes a deep breath; hurts to breath and then she cough. 2. RADIATION: Denies Radiation 3. ONSET: Started during the night around 11 PM 4. PATTERN Only when she takes a deep breath 5. DURATION: A couple seconds until she coughs, then she feels better. 6. SEVERITY: Patient rates pain 3 out of 10. 7. CARDIAC RISK FACTORS: Denies 8. PULMONARY RISK FACTORS: Denies 9. CAUSE: Unsure 10. OTHER SYMPTOMS: Joints feel achy, last night she felt like dizzy, cough, difficulty breathing Protocols used: Chest [id number] documented in this encounter [facility] 08-02-2023 Note [facility] Pap Smear Specimen Adequacy August 02, 2023 11:59pm Comment . Satisfactory for evaluation. Endocervical and/or squamous metaplasticcells (endocervical component) are present. Comment on above: Satisfactory for mae luation. Endocervical and/or squamous metaplasticcells (endocervical component) are present. 08-02-2023 Note [facility] Pap Smear Specimen Adequacy August 02, 2023 11:59pm Comment . Satisfactory for evaluation. Endocervical and/or squamous metaplasticcells (endocervical component) are present. Comment on above: Satisfactory for mae luation. Endocervical and/or squamous metaplasticcells (endocervical component) are present. 08-02-2023 Note [facility] Pap Smear Specimen Adequacy August 02, 2023 11:59pm Comment . Satisfactory for evaluation. Endocervical and/or squamous metaplasticcells (endocervical component) are present. Comment on above: Satisfactory for mae luation. Endocervical and/or squamous metaplasticcells (endocervical component) are present. 08-02-2023 Note [facility] Pap Smear Specimen Adequacy August 02, 2023 11:59pm Comment . Satisfactory for evaluation. Endocervical and/or squamous metaplasticcells (endocervical component) are present. Comment on above: Satisfactory for mae luation. Endocervical and/or squamous metaplasticcells (endocervical component) are present. 07-09-2023 Discharge summary Note Date/Time July 09, 2023 2:14pm [facility] Medical Records Department [address] [place] [address] Emergency Department Summary 07/09/23 MR#: [id number] Acct: [id number] Name: KIM LOTT Rep #:[id number] : 1995 28 From: Sherwin Mendoza MD PCP: Dr. Boston Lopez MD Status:REG E R Location: ED HPI HPI - Female History of Present Illness Chief Complaint: Informant: patient Narrative Narrative: Since with some bleeding while . This is a overall healthy G2, P0 female estimated to be about 5 weeks . She had a miscarriage at 13 weeks with her last and that occurred February of this year. She also had some nausea vomiting with that . She states she is starting to get mild nausea with this but it is not a big issue and she has not had vomiting. This morning she wiped and had a small amount of brownish or bloody discharge. It has not recurred. She called her OB who referred her in here. But patient already had quantitative beta-hCG drawn this morning. Patient's not in any pain. She states occasionally she gets a pinch feeling in her left lower quadrant but it is just intermittent and generally she feels fine. She has no urinary symptoms. No fevers or chills. Only abdominal surgery is D&C this February and appendectomy when she was . Of note, there is question if the patient may have a slightly bicornate uterus. But this is evidently not certain based on the prior ultrasounds. PFSH PFSH Medical History Non-smoker Home Medications magnesium 250 mg tablet 250 mg PO DAILY 03/02/23 [History Last Taken Unknown] vit no.95-ferrous fumarate 28 mg-folic acid 800 mcg tablet () 1tab PO DAILY 03/02/23 [History Last Taken Unknown] Allergy/AdvReac Type Severity Reaction Status Date / Time pollen extracts Allergy Unknown Verified 07/09/23 13:47 Surgical History History of appendectomy (~2003) History of wisdom tooth extraction (~12/2021) Social History Smoking Status: Never smoker alcohol intake: current alcohol intake frequency: a few times a week ROS ROS ED Constitutional Constitutional ED: Denies chills or fever(s) ENT ENT ED: Denies rhinorrhea or sore throat Cardiovascular Cardiovascular: Denies chest pain or palpitations Respiratory/Chest Respiratory/Chest: Denies cough or dyspnea Gastrointestinal Gastrointestinal: Reports nausea; Denies abdominal pain, diarrhea or vomiting Genitourinary Genitourinary ED: Reports other Details: See history of present illness ; Denies dysuria or hematuria Endocrine Endocrinology: Denies polydipsia or polyuria Hematologic/Lymphatic Hematologic/Lymphatic: Denies easy bleeding, easy bruising or lymphadenopathy Allergic/Immunologic Allergic/Immunologic ED: Denies urticaria EXAM Physical Exam Narrative Exam Narrative: Neuro: Patient's laying on bed comfortable no acute distress. Nontoxic. Does not look pale. HEENT shows no trauma. Mucous membranes are moist. Heart is regular. Lungs are clear and saturations are normal. Abdomen is soft nondistended. There is no tenderness including none at the low left and right quadrant/pubic area and no suprapubic tenderness. No CVA tenderness. Skin shows no rash petechiae purpura or pallor. No diaphoresis. Const Vital Signs: 07/09/23 13:46 07/09/23 15:49 Temperature 96.6 F L Temperature Source Temporal Pulse Rate 131 H 64 Respiratory Rate 16 16 Blood Pressure 115/80 134/73 H Blood Pressure Mean 91 93 Pulse Ox 100 99 Oxygen Delivery Method Room Air Room Air MDM MDM MDM Narrative Medical decision making narrative: And already had a quantitative beta-hCG G drawn at over 21,000 earlier today. Patient has blood type of O+ when I checked on prior labs from 05 March of this year. Because of the above information I do not think we need to repeat blood work. Patient had a small amount of red on a tissue a single time and I do not think aCBC would be necessary now. We will do ultrasound. Ultrasound shows intrauterine gestational sac with size consistent with 6 weeks 2 days. There is small subchorionic bleed. The do note hypoechoic structure next to the left ovary. Urinalysis is normal. Patient will follow-up with [facility]. If she has further bleeding pain and vomiting or other concerns she should return. Lab Data Attestation: I reviewed the patient's lab results. Labs: Laboratory Results - last 24 hr 07/09/23 15:46 Urine Color Yellow Urine Clarity Clear Urine pH 7.0 Ur Specific [place] 1.005 Urine Protein Negative Urine Glucose (UA) Normal Urine Ketones Negative Urine Occult Blood Negative Urine Nitrite Negative Urine Bilirubin Negative Urine Urobilinogen Normal Ur Leukocyte Esterase Negative Urine RBC 0 SEEN Urine WBC 0 SEEN Ur Squamous Epith Cells 0 SEEN Urine Bacteria 0 SEEN Urine Mucus 0 SEEN Radiography Diagnostic Testing: Clinical Impression(s) from Imaging Studies Obstetrics Ultrasound 07/09/23 14:10 IMPRESSION: Intrauterine gestational sac with a mean gestational age of 6 weeks and 2 days. Small subchorionic. Electronically Signed: Adan Domínguez MD at 15:44 EST Reading Location ID and State: [facility] / [place] , Service support , Discharge Plan Triage Chief Complaint: ED Provider: Sherwin Mendoza Dx/Rx/DC Orders Clinical Impression: First trimester bleeding, Subchorionic bleed Instructions: Bleeding During Early Prescriptions: No Action PNV cmb#95-ferrous fumarate-FA [] 28 mg iron- 800 mcg tablet 1 tab PO DAILY magnesium 250 mg tablet 250 mg PO DAILY Primary Care Provider: Boston Lopez Referrals: Kari Vanegas MD [Med Staff - Active Staff] - As soon as possible Boston Lopez MD [Primary Care Provider] - Disposition Disposition: Home, Self Care What to do if you have Problems For any increased pain, shortness of breath, bleeding, nausea or vomiting, chestpain, or any unexpected problems, contact your Primary Care Provider. Call [facility] ([phone]) or report to the closest Emergency Room. Call 911 if necessary. 07/09/23 1640 <Electronically signed by Sherwin Mendoza MD> Cosigner Signature (if applicable): CC: Dr. Boston Lopez MD ~ Signed [facility] Work Phone: 1(474) 737-764108-31-2023 History of Present illness Narrative* Boston Lopez MD - 03/29/2023 10:06 AM EDT Patient presents with: Acute Visit HPI:This Team Access Model visit is a virtual encounter. It required patient- provider interaction for the medical decision making as documented below. Patient has elected to have a visit through distance medicine I have communicated my name and active licensure. The patient's identity and physical location wereverified at the time of this visit. Either the patient or their legal pharmaceutical representative has been informed of the risks and benefits of -- and alternatives to -- treatment through a remote evaluation andconsents to proceed with the evaluation remotely. Wants [...] past medical history, surgical history, family history andsocial history today. REVIEW OF SYSTEMS All other [...] TSH BLD - T4/FTI/T4U - T3 BLD Boston Lopez [facility] Dis[facility] summary Author Chioma Bradley [facility] March 05, 2023 12:53pm Note Date/Time March 05, 2023 11: 54am [facility] Medical Records Department [address] [place] [address] Instructions for Home/Discharge Instructions 03/05/23 1153 MR#: [id number] Acct: [id number] Name: KIM LOTT Rep #:[id number] : 1995 27 From: Chioma meredith DO PCP: Dr. Boston Lopez MD Status:REG S DC Discharge Instructions Diet Discharge Diet: No restrictions Activity Discharge Activity: Return to Normal Activity and May Shower May resume sexual activity in: 2 weeks Weight Bearing Status: Weight bearing as tolerated Lifting Restrictions: None Dressing / Incision Call your doctor if you observe: Fever of 101 or Higher, Change in Color, Inability to urinate, Shortness of breath, Dizziness, Swelling in the ankles, Chest pain, Calf discomfort and - (soaking 2 pads an hour for 2 hours) Follow Up Care Please Follow Up With: Chioma Bradley DO When: 1-2 week postoperative visit Test Results: Test results from this visit will be discussed in further detail at your follow- up appointment, if applicable. Discharge Plan Admission Primary Reason for Your Visit: Miscarriage Attending Provider: Chioma Bradley Primary Care Provider: Boston Lopez Instructions Additional Instructions / Restrictions: Take ibuprofen and Tylenol as needed for cramping. Discharge Orders/Prescriptions Prescriptions: No Action PNV cmb#95-ferrous fumarate-FA [] 28 mg iron- 800 mcg tablet 1 tab PO DAILY magnesium 250 mg tablet 250 mg PO DAILY Referrals / Follow Up: Care Physician,No Primary [Non-Staff] - Disposition Disposition (needs filled in before D/C Order can be placed): Home, Self Care 03/05/23 1253<Electronically signed by Chioma Bradley DO>Chioma Bradley DO CC: Dr. 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 Boston Lopez MD Status:REG S DC Location: [place] [address] History and Physical Date of Admission: 03/05/23 HPI: 27-year-old G1 at 13 weeks presenting for suction dilation curettage for missed . Denies headache vision changes, chest pain or shortness of breath, nausea or vomiting, fevers or cough, diarrhea or constipation. 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: G1: Current Medical history: Denies Surgical history: Appendectomy, wisdom tooth extraction Family history: Noncontributory Social history: Denies tobacco, alcohol, drug use Allergies: NKDA Medications: vitamin Review of system: Negative otherwise stated above Physical exam: Vitals blood pressure 117/77 heart rate 118, respirations 16, temp 97.9 ?F, oxygen saturation 100% on room air General: No acute distress resting comfortably in bed HEENT: Normal cephalic/atraumatic Cardiorespiratory: No increased effort Abdomen: Soft, nontender Extremities: Minimal edema Neurologic: Cranial nerves II through XII grossly intact, no focal deficits Musculoskeletal: Moves all extremities Assessment/plan: 27-year-old G1 at 13 weeks presenting for suction dilation curettage for missed . All risk, benefits, alternatives were discussed the patient. Risk include but are not limited to: Risk of bleeding upon transfusion, infection, injury to surrounding tissue including bowel/bladder/uterine perforation, VTE, ice admission. Patient were consented. Patient elects for Anora testing. Will be sent. 03/05/23 1152 <Electronically signed by Chioma Bradley DO> Cosigner Signature (if applicable): CC: Dr. Chioma Bradley, DO; Dr. Boston Lopez MD~ Signed [facility] Work Phone: [phone]) 507-891208-07-2023 Procedure [facility] 02-01-2023 History of Present illness Narrative* Boston Lopez MD - 02/01/2023 6:43 PM EDT Patient presents with: Cellulitis HPI: Patient presents [...] [address] Bradley at [facility] for her ob care. Pedro Pablo Hopper was wanting to rule out possible lyme's disease but since it was possibly early decided to wati. Pedro Pablo Hopper was concerned about Lyme's given its circular area with an area that is clear surroundinga red area with it that looked like [...] past medical history, surgical history, family history andsocial history today. REVIEW OF SYSTEMS All other [...] EARLY <=30 DAY SYMPTOMS - SED RATE WESTDANIELREN Boston Lopez MD [facility]23 Miscellaneous Notes* Result Encounter Note - Nicolle Marshall - 08/03/2022 10:49 AM EST Normal pap letter sent documented [facility]23 Instructions* Patient Instructions* Destiney Mccarthy APRN.CNP - 08/01/2022 1:47 PM EST vitamin with 0.4 mg folic acid documented in this encounterLuther[facility] Hospital01-03-[facility]23 History of Present illness Narrative* Destiney Mccarthy APRN.CNP - 08/01/2022 1:26 PM EST [employer] offered: Patient declines. Alvarez is a 27 year old No [...] OB History No obstetric history on file. 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 Anni Sandoval RN * Telephone Encounter - oBston Lopez MD - 07/26/2022 7:56 AM EST She has covid based on testing. Needs to stay in quarantine for five days from onset of symptoms and wear mask around all others for next five. Really does not meet criteria for oral meds. Call if any worsening symptoms, particularly shortness of breath. documented in this encounterLuther[facility] Hospital12-27-2022 History of Present illness Narrative* Valeri Marlow RT(R) - 07/25/2022 2:00 PM EST Radiology Service Progress Note PATIENT NAME: Kim Lott DATE OF SERVICE: July 25, 2022 TIME: 1:52 PM PATIENT IDENTITY VERIFICATION COMPLETED USING TWO (2) IDENTIFIERS: Name and Date of confirmedby patient verbally. FALL SCREENING: Has the patient had 2 falls in the last year or 1 fall with injury or currently using an Ambulatory Assistive Device (Walker, Cane, Wheelchair, Crutches, etc.)? No PATIENT GENDER DATA: Female. status: : No status: NO. PATIENT RELEVANT IMPLANT DATA REVIEWED: Not Applicable RADIOLOGY DEPARTMENT: General X-ray: Exam(s) Completed: Upper Extremity X- Ray(s): Hand, left PERIPHERAL IV DATA: Not applicable SIGNED BY: RT Mendoza(R) July 25, 2022 1:52 PM documented in this encounterLutheran Hospital12-27-2022 History of Present illness Narrative* Boston Lopez MD - 07/25/2022 12:50 PM EST Patient presents with: Establish Care: physical HPI: Patient presents today for office visit for getting established. Has had pain in her left index finger for a few months. Followed a volleyball game. Does not recallthe definite injury. No bruising. May have been slightly swollen. No numbness. Is right handed. MEDICATIONS: No current outpatient medications on file. No current facility-administered medications for this visit. ALLERGIES: ALLERGIES Not on File PAST MEDICAL HISTORY Diagnosis Date NEGATIVE MEDICAL HISTORY PAST SURGICAL HISTORY Procedure Laterality Date APPENDECTOMY HX 2004 FAMILY HISTORY Problem Relation Age of Onset Hypothyroidism Mother Reviewed current medications, allergies, past medical history, surgical history, family history andsocial history today. REVIEW OF SYSTEMS GENERAL: No weight loss, malaise or fevers HEENT: Negative for frequent or significant headaches, No changes in hearing or vision, no nose bleeds or other nasal problems NECK: has mild uri symptoms since yesterday. RESPIRATORY: did have some cough since last night. Her brother was ill. CARDIOVASCULAR: Negative for chest pain, leg swelling, hypertension, CHF or palpitations GI: No nausea, vomiting, or diarrhea : No history of dysuria, frequency or incontinence SKIN: Negative for lesions, rash, and itching All other reviewed and negative other than HPI. HEALTH MAINTENANCE: Reviewed health maintenance issues today and recommended the following in detail. HEPATITIS B(1 of 3 - 3-dose series) -had done COVID-19 VACCINE(-had done HEPATITIS C SCREENING- declines. HIV SCREENING - declines. DTAP,TDAP,TD(1 - Tdap) Never done PAP TESTING Never done DEPRESSION ASSESSMENT Never done INFLUENZA(1) Never done VITALS: BP 110/70 Pulse 99 Resp 16 Ht 172 cm (5' 7.72) Wt 66.2 kg (146 lb) SpO2 99% BMI 22.39 kg/m No data found for this vital: Wt PHYSICAL EXAMINATION: General appearance: Well appearing, alert, in no acute distress, well-hydrated, well nourished. Skin: Skin color, texture, turgor normal, no suspicious rashes or lesions Head: Normocephalic, no masses, lesions, tenderness or abnormalities Eyes: Anicteric sclera. Pupils are equally round and reactive to light. Extraocular movements are intact. Ears: External ears normal, canals clear Nose/Sinuses: Nares normal, septum midline, mucosa normal, no drainage or sinus tenderness Oropharynx: Lips, mucosa, and tongue normal, teeth and gums normal, oropharynx normal Neck: Supple, no adenopathy; thyroid symmetric, normal size, no bruits Lungs: Lungs clear to auscultation. No wheezing, rhonchi, rales Heart: RRR without murmur, gallop, or rubs. No ectopy Abdomen: Normal abdominal exam, Abdomen soft, non-tender. Bowel sounds normal. No masses, organomegaly Extremities: No deformities, edema, skin discoloration, clubbing or cyanosis. Good capillary refill. Musculoskeletal: No joint swelling, deformity, or tenderness Peripheral pulses: Normal Neuro: Gait normal. Reflexes normal and symmetric. Sensation grossly intact. ASSESSMENT/PLAN: 1. Well adult exam - ICD9: V70.0, ICD10: Z00.00 (primary diagnosis) 2. Pain of finger of left hand - ICD9: 729.5, ICD10: M79.645 - ice and range of motion exercises. - XR HAND GENERAL 3V PA/LAT/OBL LEFT 3. Screening for cervical cancer - ICD9: V76.2, ICD10: Z12.4 - Follow up for annual exam in one year. - CONSULT TO GYNECOLOGY 4. Acute cough - ICD9: 786.2, ICD10: R05.1 - symptomatic relief. Red flags for re-assessment reviewed with patient in detail. - COVID WITH FLUA+B, ROUTINE 5. Screening for lipid disorders - ICD9: V77.91, ICD10: Z13.220 - LIPID PANEL BASIC 6. Screening for diabetes mellitus (DM) - ICD9: V77.1, ICD10: Z13.1 - GLUCOSE FASTING BLD Boston Lopez MD documented in this encounterLutheran HospitalEvaluation + Plan note No data available for this section [facility] Evaluation noteNo assessment information available [facility] Work Phone: Evaluation note* Diagnosis Well adult exam- Primary Routine general medical examination at a health care facility Pain of finger of left hand Pain in limb Screening for cervical cancer Screening for malignant neoplasm of the cervix Acute cough Screening for lipid disorders Screening for diabetes mellitus (DM) Screening for diabetes mellitus documented in this encounter [facility] [place] [facility]* Diagnosis Encounter for gynecological examination (general) (routine) without abnormal findings- Primary Screening for cervical cancer Screening for malignant neoplasm of the cervix Screen for STD (sexually transmitted disease) Screening examination for venereal disease documented in this encounter [facility]* Diagnosis Erythema migrans- Primary documented in this encounter [facility] [place] [facility]* Diagnosis Brittle nails- Primary Other specified disease of nail Hair loss Alopecia, unspecified Family history of thyroid disease Family history of other endocrine and metabolic diseases documented in this encounter [facility]* Diagnosis Onset Date Resolution Status Bicornate uterus acute History of miscarriage, currently acute acute Raynauds disease acute Spotting acute Supervision of high-risk acute [facility] Work Phone: Evaluation note* Diagnosis Onset Date Resolution Status Bicornate uterus acute History of miscarriage, currently acute acute Raynauds disease acute Spotting acute Supervision of high-risk acute Bicornate uterus acute History of miscarriage, currently acute acute Raynauds disease acute Spotting acute Supervision of high-risk acute [facility] Work Phone: evaluation note* Diagnosis Onset Date Resolution Status Bicornate uterus acute History of miscarriage, currently acute acute Raynauds disease acute Supervision of high-risk acute Spotting resolved Bicornate uterus acute History of miscarriage, currently acute acute Raynauds disease acute Supervision of high-risk acute Spotting resolved Bicornate uterus acute History of miscarriage, currently acute acute Supervision of high-risk acute [facility] Work Phone: evaluation note* Diagnosis Onset Date Resolution Status Bicornate uterus acute History of miscarriage, currently acute acute Raynauds disease acute Supervision of high-risk acute Spotting resolved Bicornate uterus acute History of miscarriage, currently acute acute Supervision of high-risk acute History of miscarriage, currently acute acute Supervision of high-risk acute History of miscarriage, currently acute acute Supervision of high-risk acute Bicornate uterus acute acute Supervision of high-risk acute Bicornate uterus acute History of miscarriage, currently acute acute Raynauds disease acute Supervision of high-risk acute Bicornate uterus acute History of miscarriage, currently acute acute Raynauds disease acute Supervision of high-risk acute Uterine synechiae acute Bicornate uterus acute History of miscarriage, currently acute acute Supervision of high-risk acute Uterine synechiae acute [facility] Work Phone: Evaluation note* Diagnosis Pain of finger of left hand Pain in limb documented in this encounter [facility] note* Diagnosis Sinobronchitis- Primary Unspecified sinusitis (chronic) Acute cough Fever, unspecified fever cause documented in this encounter [facility] note* Diagnosis Well adult exam- Primary Routine general medical examination at a health care facility Chest pain, unspecified type Encounter for screening examination for other mental health and behavioral disorders Screening for depression Well adult exam Routine general medical examination at a health care facility documented in this encounter [facility] [place] [facility]* Diagnosis Well adult exam Routine general medical examination at a health care facility [facility] Additional Instructions Take ibuprofen and Tylenol as needed for cramping.[facility] Work Phone: Hospital Discharge instructions No data available for this section [facility] Progress note No data available for this section [facility] Reason for referral (narrative)* Diagnostic Procedure Only (Routine) - Closed Specialty Diagnoses / Procedures Referred By Cassandra martinez Referred To Contact XR IMAGING Diagnoses Pain of finger of left hand Procedures XR HAND GENERAL 3V PA/LAT/OBL LEFT RADEX HAND MINIMUM 3 VIEWS Boston Lopez MD [address] [place] [address] [place] [id number] Referral ID Status Reason Start Date Expiration Date V isits Requested Visits Authorized [id number] Closed Auto-Generate d Referral 07/25/2022 08/24/2023 1 1 [facility] for referral (narrative)* Outpatient Procedure (Routine) - Authorized Specialty Diagnoses / Procedures Referred By Cassandra martinez Referred To [facility] Diagnoses Chest pain, unspecified type Procedures ECHO ECHO TTHRC R-T 2D W/WOM-MODE COMPL SPEC&COLR D Boston Lopez MD [address] [place] [address] [facility] [place] [address] [place] [address] Referral ID Status Reason Start Date Expiration Date Visits Requested Visits Authorized [id number] Authorized Auto-Generat ed Referral 08/27/2024 08/27/2025 1 1 * Outpatient Procedure (Routine) - New Request Specialty Diagnoses / Procedures Referred By Cassandra martinez Referred To [facility] Diagnoses Chest pain, unspecified type Procedures ECG COMPLETE ECG ROUTINE ECG W/LEAST 12 LDS W/I&R Boston Lopez MD [address] [place] [address] [facility] [address] [address] Referral ID Status Reason Start Date Expiration Date Visits Requested Visits Authorized [id number] New Request Auto-Generat ed Referral 08/27/2024 08/27/2025 1 1 [facility] for visit Narrative* Diagnostic Procedure Only (Routine) - Closed Specialty Diagnoses / Procedures Referred By Cassandra martinez Referred To Contact XR IMAGING Diagnoses Pain of finger of left hand Procedures XR HAND GENERAL 3V PA/LAT/OBL LEFT RADEX HAND MINIMUM 3 VIEWS Boston Lopez MD [address] [place] [address] [place] [id number] Referral ID Status Reason Start Date Expiration Date V isits Requested Visits Authorized [id number] Closed Auto-Generate d Referral 07/25/2022 08/24/2023 1 1 [facility] Purpose Family History Relationship Condition Age at Onset Recorded Date/T sofia mother Hypertension Unknown Hypothyroidism Unknown Advance Directives Advance Directive Response Recorded Date/ Time Living Will No March 02, 2023 2:16pm Power of Outside Sales Representative Insurance No March 02 2:16pm Advance Directive Response Recorded Date/ Time Living Will No July 09 2:19pm Power of Outside Sales Representative Insurance No July 09, 2023 2:19pm Advance Directive Response Recorded Date/ Time Living Will No August 18 10:59pm Power of Outside Sales Representative Insurance No August 18, 2023 10:59pm Advance Directive Response Recorded Date/ Time Living Will No August 18 11:59pm Power of Outside Sales Representative Insurance No August 18, 2023 11:59pm Chief Complaint and Reason for Visit Chief Complaint SKIN Chief Complaint INT LABS abd cramping, pregancy Chief Complaint INT LABS abd cramping, pregancy E-ORDER VIABILITY Chief Complaint INT LABS abd cramping, pregancy E-ORDER VIABILITY NOB LMP 11/5 Reason for Visit Bicornate uterus History of miscarriage, currently Raynauds disease Spotting Supervision of high-risk Chief Complaint INT LABS abd cramping, pregancy E-ORDER VIABILITY NOB LMP 11/5 n/v, blood in emesis Reason for Visit Bicornate uterus History of miscarriage, currently Raynauds disease Spotting Supervision of high-risk Chief Complaint INT LABS abd cramping, pregancy E-ORDER VIABILITY NOB LMP 11/5 n/v, blood in emesis OB, vaginal discharge Reason for Visit Bicornate uterus History of miscarriage, currently Raynauds disease Spotting Supervision of high-risk Bicornate uterus History of miscarriage, currently Raynauds disease Spotting Supervision of high-risk Chief Complaint INT LABS abd cramping, pregancy E-ORDER VIABILITY NOB LMP 11/5 n/v, blood in emesis OB, vaginal discharge 15 WK OB pelvic pressure/nervous since miscarriage prior Reason for Visit Bicornate uterus History of miscarriage, currently Raynauds disease Supervision of high-risk Spotting Bicornate uterus History of miscarriage, currently Raynauds disease Supervision of high-risk Spotting Bicornate uterus History of miscarriage, currently Supervision of high-risk Chief Complaint n/v, blood in emesis OB, vaginal discharge 15 WK OB pelvic pressure/nervous since miscarriage prior 17 WK OB 18 WK OB 19 WK OB 23 WK OB 27 WK OB Reason for Visit Bicornate uterus History of miscarriage, currently Raynauds disease Supervision of high-risk Spotting Bicornate uterus History of miscarriage, currently Supervision of high-risk History of miscarriage, currently Supervision of high-risk History of miscarriage, currently Supervision of high-risk Bicornate uterus Supervision of high-risk Bicornate uterus History of miscarriage, currently Raynauds disease Supervision of high-risk Bicornate uterus History of miscarriage, currently Raynauds disease Supervision of high-risk Uterine synechiae Bicornate uterus History of miscarriage, currently Supervision of high-risk Uterine synechiae Chief Complaint INT LABS abd cramping, pregancy E-ORDER Reason for Referral Specialty Diagnoses / Procedures Referred By Cassandra martinez Referred To Contact Gynecology Diagnoses Screening for cervical cancer Procedures CONSULT TO GYNECOLOGY OFFICE/OUTPATIENT [facility] 60-74 MINUTES Boston Lopez MD [address] [place] [address] Referral ID Status Reason Start Date Expiration Date Visits Requested Visits Authorized [id number] Authorized PCP Requested Referral Auto-Generate d Referral 07/25/2023 1 1 Specialty Diagnoses / Procedures Referred By Cassandra martinez Referred To Contact XR IMAGING Diagnoses Pain of finger of left hand Procedures XR HAND GENERAL 3V PA/LAT/OBL LEFT RADEX HAND MINIMUM 3 VIEWS Boston Lopez MD [address] [place] [address] Xr Imaging Referral ID Status Reason Start Date Expiration Date V isits Requested Visits Authorized [id number] Closed Auto-Generate d Referral 07/25/2022 08/24/2023 1 1 Health Concerns Infection Onset Date Last Indicated Resolved Time COVID-19 Confirmed 07/25/2022 07/25/2022 Additional Source Comments INFORMATION SOURCE (unrecogn ized section and content) DATE CREATED AUTHOR 01/31/2018 [facility] DATE CREATED AUTHOR AUTHOR'S ORGANIZ ATION 03/06/2020 [facility] DATE CREATED AUTHOR AUTHOR'S ORGANIZ ATION 01/12/2021 [facility] DATE CREATED AUTHOR AUTHOR'S ORGANIZ ATION 01/26/2024 [facility] DATE CREATED AUTHOR AUTHOR'S ORGANIZ ATION 02/26/2024 [facility] ([place]) DATE CREATED AUTHOR AUTHOR'S ORGANIZ ATION 04/02/2024 [facility] DATE CREATED AUTHOR AUTHOR'S ORGANIZ ATION 09/15/2024 [facility] Goals (unrecognized section and content) Goals may be documented in a n alternate sectionGoals may be documented in an alternate sectionGoals may be documented in an alternate sectionGoals may be documented in an alternate sectionGoals may be documented in an alternate sectionGoals may be documented in an alternate sectionGoals may be documented in an alternate sectionGoals may be documented in an alternate sectionGoals may be documented in an alternate sectionGoals may be documented in an alternate sectionGoals may be documented in an alternate section No data available for this sectionGoals may be documented in an alternate section Source Comments (unrecognize d section and content) In the event this informatio n is protected by the Federal Confidentiality of Alcohol and Drug Abuse Patient Records regulations: The Federal rules restrict any use of the information to criminally investigate or prosecute any alcohol or drug abuse patient.[facility] HospitalIn the event this information is protected by the Federal Confidentiality of Alcohol and Drug Abuse Patient Records regulations: The Federal rules restrict any use of the information to criminally investigate or prosecute any alcohol or drug abuse patient.[facility] HospitalIn the event this information is protected by the Federal Confidentiality of Alcohol and Drug Abuse Patient Records regulations: The Federal rules restrict any use of the information to criminally investigate or prosecute any alcohol or drug abuse patient.[facility] HospitalIn the event this information is protected by the Federal Confidentiality of Alcohol and Drug Abuse Patient Records regulations: The Federal rules restrict any use of the information to criminally investigate or prosecute any alcohol or drug abuse patient.[facility] HospitalIn the event this information is protected by the Federal Confidentiality of Alcohol and Drug Abuse Patient Records regulations: The Federal rules restrict any use of the information to criminally investigate or prosecute any alcohol or drug abuse patient.[facility] HospitalIn the event this information is protected by the Federal Confidentiality of Alcohol and Drug Abuse Patient Records regulations: The Federal rules restrict any use of the information to criminally investigate or prosecute any alcohol or drug abuse patient.[facility] HospitalIn the event this information is protected by the Federal Confidentiality of Alcohol and Drug Abuse Patient Records regulations: The Federal rules restrict any use of the information to criminally investigate or prosecute any alcohol or drug abuse patient.[facility] HospitalIn the event this information is protected by the Federal Confidentiality of Alcohol and Drug Abuse Patient Records regulations: The Federal rules restrict any use of the information to criminally investigate or prosecute any alcohol or drug abuse patient.[facility] HospitalIn the event this information is protected by the Federal Confidentiality of Alcohol and Drug Abuse Patient Records regulations: The Federal rules restrict any use of the information to criminally investigate or prosecute any alcohol or drug abuse patient.[facility] HospitalIn the event this information is protected by the Federal Confidentiality of Alcohol and Drug Abuse Patient Records regulations: The Federal rules restrict any use of the information to criminally investigate or prosecute any alcohol or drug abuse patient.[facility] HospitalIn the event this information is protected by the Federal Confidentiality of Alcohol and Drug Abuse Patient Records regulations: The Federal rules restrict any use of the information to criminally investigate or prosecute any alcohol or drug abuse patient.[facility] Reason for Visit (unrecogniz ed section and content) Reason Comments Establish Care physical Reason Comments Results Reason Comments Well Woman Specialty Diagnoses / Procedures Referred By Contac t Referred To Contact Gynecology Diagnoses Screening for cervical cancer Procedures CONSULT TO GYNECOLOGY OFFICE/OUTPATIENT [facility] 60-74 MINUTES Boston Lopez MD [address] [place] [address] Referral ID Status Reason Start Date Expiration Date V isits Requested Visits Authorized [id number] Closed PCP Requested Referral Auto-Generated Referral 07/25/2022 07/25/2023 1 1 Reason Comments Cellulitis Reason Comments Acute Visit Reason Comments Chest Pain Reason Comments Cough Fever Reason Comments Physical Care Teams (unrecognized sec tion and content) Team Status: Active Member Role Status Dates Dr. Boston Lopez MD Primary Care Provider Active Team Status: Inactive Member Role Status Dates Dr. Boston Lopez MD Primary Care Provider Active Dr. Nicolle Massey DO Attending Provider, Refe rring Provider Active Team Status: Inactive Member Role Status Dates Dr. Boston Lopez MD Primary Care Provider Active Dr. Nicolle Massey DO Attending Provider Activ e Team Status: Inactive Member Role Status Dates Dr. Boston Lopez MD Primary Care Provider Active Dr. Sherwin Mendoza MD Attending Erasmoi rojelio, Referring Provider, Emergency Provider Active Team Status: Active Member Role Status Dates Dr. Boston Lopez MD Primary Care Provider Active Dr. Nicolle Massey DO Attending Provider, Refe rring Provider Active Team Status: Inactive Member Role Status Dates Dr. Boston Lopez MD Primary Care Provider Active Dr. Sherwin Mendoza MD Referring Provider, Emergency Provider Active Team Status: Active Member Role Status Dates No Primary Care Physician Primary Care Provider Active Team Status: Inactive Member Role Status Dates No Primary Care Physician Primary Care Provider Active Dr. Chioma Bradley DO Attending Provider Active Plate Cutter Relationship Specialty Start Date End Date Boston Lopez MD [address] [place] [address] PCP - General Family Medicine 02/01/23 Team Status: Inactive Member Role Status Dates No Primary Care Physician Primary Care Provider Active Dr. Refugio Barriga MD Attending Provider, Referring Pro vider Active Team Status: Inactive Member Role Status Dates Dr. Chioma Bradley DO Attending Provider, Referrin g Provider Active Dr. Boston Lopez MD Primary Care Provider Active Plate Cutter Relationship Specialty Start Date End Date Boston Lopez MD [address] [place] [address] PCP - General Family Medicine 02/01/23 Team Status: Inactive Member Role Status Dates Dr. Boston Lopez MD Primary Care Provider, Referring Provider Active Roger Marshall CNM Attending Provider Active Team Status: Inactive Member Role Status Dates Dr. Boston Lopez MD Primary Care Provider Active Roger Marshall CNM Attending Provider, Referring Pro vider Active Team Status: Inactive Member Role Status Dates Dr. Boston Lopez MD Primary Care Provider Active Dr. Nicolle Martinez MD Emergency Provider Active Team Status: Inactive Member Role Status Dates Dr. Boston Lopez MD Primary Care Provider Active Dr. Nicolle Martinez MD Attending Provider, Emergency Provider Active Team Status: Inactive Member Role Status Dates Dr. Boston Lopez MD Primary Care Provider, Referring Provider Active Ria Aviles GROUND OPERATIONS CREW MEMBER, GROUND OPERATIONS CREW MEMBER-C Attending Provider Active Team Status: Inactive Member Role Status Dates Dr. Boston Lopez MD Primary Care Provider, Referring Provider Active Raven Herrera CNM Attending Provider Active Team Status: Inactive Member Role Status Dates Dr. Boston Lopez MD Primary Care Provider Active Roger Marshall CNM Attending Provider, Referring Pro vider Active Raven Herrera CNM Other Provider Active Team Status: Inactive Member Role Status Dates Dr. Boston Lopez MD Primary Care Provider, Referring Provider Active Dr. Kari Vanegas MD Attending Provider Active Team Status: Inactive Member Role Status Dates Dr. Boston Lopez MD Primary Care Provider, Referring Provider Active Dr. Nicolle Massey DO Attending Provider Activ e Plate Cutter Relationship Specialty Start Date End Date Boston Lopez MD [address] [place] [address] PCP - General Family Medicine 02/01/23 Plate Cutter Relationship Specialty Start Date End Date Boston Lopez MD [address] [place] [address] PCP - General Family Medicine 02/01/23 Plate Cutter Relationship Specialty Start Date End Date Boston Lopez MD [address] [place] [address] PCP - General Family Medicine 02/01/23 Syeda Fagan APRN.CORE WINDER MACHINE OPERATOR [address] [place] [address] Certified Lactation Educator Family Medicine 07/07/24 Luli Mason TOOL INSPECTOR.CORE WINDER MACHINE OPERATOR [address] [place] [address] Certified Lactation Educator Family Medicine 07/07/24 Plate Cutter Relationship Specialty Start Date End Date Boston Lopez MD [address] [place] [address] PCP - General Family Medicine 02/01/23 Syeda Fagan, TOOL INSPECTOR.CORE WINDER MACHINE OPERATOR [address] [place] [address] Certified Lactation Educator Family Medicine 07/07/24 Luli Mason TOOL INSPECTOR.CORE WINDER MACHINE OPERATOR [address] [place] [address] Certified Lactation Educator Family Medicine 07/07/24 Plate Cutter Relationship Specialty Start Date End Date Boston Lopez MD [address] [place] [address] PCP - General Family Medicine 02/01/23 Syeda Fagan APRN.CORE WINDER MACHINE OPERATOR [address] [place], [place] [id number] [facility] 07/07/24 Luli Mason APRN.CORE WINDER MACHINE OPERATOR [address] [place] [address] [facility] 07/07/24 FOR RECORDS PERTAINING TO PATIENTS WHO ARE [...] BE BASED ON THE PRIMARY CLINICAL RECORDS. [facility]. provides no warranty or guarantee of the accuracy or completeness of information in this document.
[2025-03-22 18:10] LABS: hCG Titer Quant., Serum 280 mIU/mL (<9 non-preg)
== END | disposition home or self-care (01) ==
LOC: LAB 16:12
PROVIDERS: PCP Family Medicine; Visit Provider Obstetrics & Gynecology
DX: N91.2 Amenorrhea, unspecified (principal)
CPT/HCPCS: 36415; 84702

== ENCOUNTER → 2025-04-01 | Outpatient (CLI) | payer OTHER, SELFPAY ==
--- NOTE | 2025-04-01 16:10 | US_ITS ---
PROCEDURE: TRANSVAGINAL W/PREG US 04/01/2025 REASON FOR EXAM: DATING TECHNIQUE: Procedure Code: USTVAGP Modality: US Procedure: TRANSVAGINAL W/PREG US COMPARISON: None FINDINGS: Comments: LMP: Unknown Number of Gestational Sacs: 1 Gestational Sac Shape: The gestational sac is seen within the left horn of a bicornuate uterus. Number of Fetuses: 1 Heart Rate: Not visualized. ( Yolk Sac: Not visualized Placenta: Presently not well-visualized Uterine Abnormalities: The uterus measures 8.5 cm 7 cm 4.3 cm. It is bicornuate. Ovaries / Adnexa: Both maternal ovaries are visualized and unremarkable. DIMENSIONS: Parameter Measurement / EGA Gestational Sac: 9.3 mm/5 weeks and 5 days Yolk Sac: Not visualized/ ESTIMATED GESTATIONAL AGE: By Ultrasound: 5 weeks and 5 days ESTIMATED DATE OF DELIVERY: By Ultrasound: November 27, 2025 US/Transvaginal w/Preg US IMPRESSION: Single intrauterine gestational sac within the left horn of the bicornuate uter us. Gestational age of 5 weeks and 5 days. No yolk sac or embryo seen at this time. Serial beta HCG correlation as well as repeat sonogram recommended. Reading Location: [place] [address]
== END | disposition home or self-care (01) ==
LOC: US 16:10
PROVIDERS: PCP Family Medicine; Referring Provider Obstetrics & Gynecology; Visit Provider Obstetrics & Gynecology
DX: Z78.9 Other specified health status (principal)
CPT/HCPCS: 76817

== ENCOUNTER → 2025-04-13 | Outpatient (CLI) | payer OTHER, SELFPAY ==
--- NOTE | 2025-04-13 16:11 | US_ITS ---
PROCEDURE: TRANSVAGINAL W/PREG US 04/13/2025 REASON FOR EXAM: VIABILITY TECHNIQUE: Procedure Code: USTVAGP Modality: US Procedure: TRANSVAGINAL W/PREG US COMPARISON: Prior study dated April 01, 2025. FINDINGS: Comments: LMP is unknown. Number of Gestational Sacs: 1 Gestational Sac Shape: Normal Number of Fetuses: 1 Heart Rate: 152 beats per minute (average) Yolk Sac: Present and unremarkable. Placenta: Presently not well-visualized Amniotic Fluid Volume: Subjectively normal for gestational age. Uterine Abnormalities: Maternal uterus is unremarkable. Ovaries / Adnexa: Both maternal ovaries are visualized and unremarkable. DIMENSIONS: Parameter Measurement / EGA [place] Rump Length: 9 mm/7 weeks and 0 days Gestational Sac: 1.5 cm/6 weeks and 2 days Yolk Sac: 4 mm/ ESTIMATED GESTATIONAL AGE: By Ultrasound: 6 weeks and 5 days ESTIMATED DATE OF DELIVERY: By Ultrasound: December 02, 2025 US/Transvaginal w/Preg US IMPRESSION: Single live intrauterine gestation with mean gestational age of 6 weeks and 5 d ays. Reading Location: [place] [address]
== END | disposition home or self-care (01) ==
LOC: US 16:10
PROVIDERS: PCP Family Medicine; Referring Provider Obstetrics & Gynecology; Visit Provider Obstetrics & Gynecology
DX: O09.299 Supervision of pregnancy with other poor reproductive or obstetric history, unspecified trimester (principal)
CPT/HCPCS: 76817

== ENCOUNTER → 2025-04-28 | Outpatient (CLI) | payer OTHER, SELFPAY ==
[2025-04-28 15:49] LABS: Hematocrit 40.4 % (37-47); Hemoglobin 13.3 g/dL (12.0-15.0); Immature Granulocytes Count 0.020 X10^3/uL (0.0-0.0); Mean Corp Hgb Conc 32.9 g/dL (32-36); Mean Corpuscular Volume 91.8 fL (81-99); Mean Platelet Vol. 9.8 fl (6.2-12.0); NRBC Flagged by Analyzer 0 % (0-5); Platelet Count 261 K/mm3 (150-450); RBC Distribution Width CV 11.8 % (11.6-14.6); RBC Distribution Width SD 39.8 fl (35.1-43.9); Red Blood Count 4.40 M/mm3 (4.2-5.4); White Blood Count 6.4 K/mm3 (4.4-11.0)
[2025-04-28 16:55] LABS: HIV Nonreactive (Nonreactive); Hepatitis B Surface Antigen Nonreactive (Nonreactive); Hepatitis C Antibody Nonreactive (Nonreactive); Syphilis Antibodies Nonreactive (Nonreactive)
[2025-05-01 10:08] LABS: Chlamydia By Nucleic Acid AMP Negative (Negative); Gonococcus By Nucleic Acid AMP Negative (Negative)
== END | disposition home or self-care (01) ==
PROVIDERS: PCP Family Medicine; Visit Provider Obstetrics & Gynecology
DX: O09.90 Supervision of high risk pregnancy, unspecified, unspecified trimester (principal); Z3A.00 Weeks of gestation of pregnancy not specified
CPT/HCPCS: 36415; 85025; 86703; 86762; 86780; 86803; 86850; 86900; 86901; 87086; 87088; 87340; 87491; 87591

== ENCOUNTER → 2025-05-27 | Outpatient (CLI) | payer OTHER, SELFPAY ==
--- NOTE | 2025-05-27 13:18 | US_ITS ---
PROCEDURE: TRANSVAGINAL W/PREG US 05/27/2025 REASON FOR EXAM: CHECK PLACENTA PLACEMENT, R/O PREVIA TECHNIQUE: Procedure Code: USTVAGP Modality: US Procedure: TRANSVAGINAL W/PREG US COMPARISON: April 14, 2025. FINDINGS: Comments: LMP: February 25, 2025. Number of Gestational Sacs: 1 Gestational Sac Shape: Normal Number of Fetuses: 1 Heart Rate: 161 beats per minute (average) Survey of Visible Anatomic Structures: Grossly unremarkable for gestational age. Yolk Sac: Present and unremarkable. Placenta: Presently not well-visualized placenta appears to be posterior in position and not low-lying. Amniotic Fluid Volume: Subjectively normal for gestational age. Uterine Abnormalities: Maternal uterus is unremarkable. Ovaries / Adnexa: Right ovary is unremarkable. Left ovary was not visualized. DIMENSIONS: Parameter Measurement / EGA [place] Rump Length: 5.3 cm/11 weeks and 6 days Gestational Sac: 5 cm/10 weeks and 5 days Yolk Sac: Nonvisualized./ ESTIMATED GESTATIONAL AGE: By Ultrasound: 11 weeks and 1 day By LMP: 13 weeks ESTIMATED DATE OF DELIVERY: By Ultrasound: December 15, 2025 By LMP: December 02, 2025 US/Transvaginal w/Preg US IMPRESSION: Live intrauterine gestation with a mean gestational age of 11 weeks and 1 day. Reading Location: [id number]
== END | disposition home or self-care (01) ==
LOC: US 13:17
PROVIDERS: PCP Family Medicine; Referring Provider Obstetrics & Gynecology; Visit Provider Obstetrics & Gynecology
DX: O20.9 Hemorrhage in early pregnancy, unspecified (principal); Z3A.00 Weeks of gestation of pregnancy not specified
CPT/HCPCS: 76817

== ENCOUNTER 2025-06-05 05:05 | Inpatient (IN) | payer OTHER, SELFPAY ==
[2025-06-05] VITALS (23 sets, daily range): BP systolic 99–117; BP diastolic 61–84; PULSE 72–100; RESP 14–16; TEMP 36.3–37.1; O2SAT 95–100; BMI 21.4
[2025-06-05] MEDS: 0.9% Normal Saline (1000mL) 1,000 ML 999 ML IV (05:28)
[2025-06-05 05:39] LABS: Hematocrit 36.4 % (37-47); Hemoglobin 12.1 g/dL (12.0-15.0); Immature Granulocytes Count 0.020 X10^3/uL (0.0-0.0); Mean Corp Hgb Conc 33.2 g/dL (32-36); Mean Corpuscular Volume 90.5 fL (81-99); Mean Platelet Vol. 9.2 fl (6.2-12.0); NRBC Flagged by Analyzer 0 % (0-5); Platelet Count 169 K/mm3 (150-450); RBC Distribution Width CV 11.8 % (11.6-14.6); RBC Distribution Width SD 39.2 fl (35.1-43.9); Red Blood Count 4.02 M/mm3 (4.2-5.4); White Blood Count 5.9 K/mm3 (4.4-11.0)
--- OUTSIDE RECORDS SUMMARY | 2025-06-05 05:43 | XMS RPT_ITS | CCD ---
Author Organization [facility] Care Team Providers Care Alterations Expert Name Role Phone Juan, Ann Unavailable Unavailable Juan, Ann Unavailable Unavailable Luisa Grover LPN Unavailable Unavailab le ROXANN THURSTON DO Attending Unavailable BERTRAND DOROXANN Consulting Unavailable BERTRANDROXANN RANDOLPH DO Admitting Unavailable NONE, NONE Primary Care Unavailable NONE, NONE Consulting Unavailable Unavailable Primary Care Provider UnavailBoston Arrieta MD Primary Care Provider Dr. [place] Lopez Primary Care Provider John, Dr. Mead Referring Provider JESUS Marshall Attending Provider [phone] SOLITARIO Aviles NP Attending Provider [phone] JESUS Herrera Attending Provider Dr. [place] Lopez Primary Care Provider John, Dr. Mead Referring Provider JESUS Marshall Attending Provider [phone] Traci TYPE PROOF REPRODUCERSOLITARIO Attending Provider JESUS Herrera Attending Provider Dr. [...] Care Unavailable ROGER MARSHALL Referring Unavailable NEWMANHINA Attending Unavailable TRUNG CANELA Attending Unavailable JOHN, BOSTON J Primary Care Unavailable ROGER MARSHALL Referring Unavailable ANDRZEJ GARCIA, CARYN Primary Care Physician ER_REG, TEMP ID Attending Unavailable ANDRZEJ GARCIA, CARYN Primary Care Unavailable Unavailable Primary Care Provider Unavailchauncey Lopez MD, [place] Rogers Primary Care Provider Haagen SECURITY ASSURANCE SPECIALIST.FRENCH PROFESSOR, Syeda Unavailable Suppan SECURITY ASSURANCE SPECIALIST.FRENCH PROFESSOR, Luli A Unavailable John GARCIA, Dr. Mead Primary Care Provider Guilherme GARCIA, Dr. Pierce Attending Provider Guilherme GARCIA, Dr. Pierce Referring Provider John GARCIA, Dr. Mead Primary Care Physician Guilherme GARCIA, Dr. Pierce Attending Physician John GARCIA, Dr. Mead Referring Provider Dr. Nicolle Massey DO Attending Physician Roger Marshall CNM Attending Physician JOHN, BOSTON Rogers Referring Unavailable JOHN, BOSTON J Primary Care Unavailable JOHN, BOSTON J Referring Unavailable JOHN, BOSTON Ken Primary Care Unavailable JOHN, BOSTON Rogers Attending Unavailable JOHN, BOSTON J Primary Care Unavailable JESICA JOHNSON Attending Unavailable JOHN, BOSTON J Primary Care Unavailable SUPPAN, LULI A Referring Unavailable JOHN, BOSTON J Primary Care Unavailable SUPPAN, LULI A Attending Unavailable JOHN, BOSTON J Primary Care Unavailable SUPPAN, LULI A Attending Unavailable JOHN, BOSTON J Primary Care Unavailable JOHN, BOSTON J Referring Unavailable JOHN, BOSTON J Primary Care Unavailable Jhon, [place] Primary Care Unavailable Nicolle Massey Attending UnavailKari Sanchez Attending Unavailable Kari Vanegas Referring Unavailable John, [place] Primary Care Unavailable Kari Vanegas Referring Unavailable Kari Vanegas Attending Unavailable [place], [place] Primary Care Unavailable [place], [place] Primary Care Unavailable Kari Vanegas Attending Unavailable Marcanthony, Kari Referring Unavailable [place], [place] Primary Care Unavailable Kari Vanegas Attending Unavailable [place], [place] Primary Care Unavailable [place], [place] Referring Unavailable Nicolle Massey [facility] [place] Primary [facility] Unavailable Roger Marshall Attending Unavailable John, [place] Referring Unavailable [place], [place] Primary Care Unavailable [place], [place] Referring Unavailable Ria Aviles NP Attending Unavailable Kari Vanegas Attending Unavailable [place], [place] Referring Unavailable [place], [place] Primary Care Unavailable Kari Vanegas Referring Unavailable [place], [place] Primary Care Unavailable Kari Vanegas Attending Unavailable Allergies Allergy Classification Reported Allergen(s) Allergy Type Date of Onset Reaction(s) Facility (1 source) No Known Medication Allergies; Translations: [No Known Medication Allergies] Propensity to adverse reactions to drug (disorder) [facility] Repository (1 source) Pollen; Translations: [POLLEN] allergy to substance 7 [facility] Work Phone: (20 sources) Pollen; Translations: [POLLEN EXTRACTS] Allergy to substance 7 Other: See Comments [facility] Work Phone: (1 source) Pollen Drug allergy (disorder) 5 [facility] Repository Medications Current [...] daily on days 2 through 5 AZITHROMYCIN [id number] Clint HIGGINS cefuroxime 500 mg oral tablet (1 source) Cephalosporin Antibacterial Start: 02-01-2023 End: 02-15-2023 take 1 tablet by mouth twice daily cefUROXime (CEFTIN) 500 mg tablet Indications: Erythema migrans Take 1 tablet by mouth twice daily for 14 days. 28 tablet 0 02/01/2023 02/15/2023 Active Comment on above: Take 1 tablet by jesu th twice daily for 14 days. 12 hr dextromethorphan hydrobromide 60 mg / guaiFENesin 1200 mg extended release oral tablet (4 sources) Uncompetitive Y-zfvfdz-U-aspartat e Receptor Antagonist, Sigma-1 Agonist Start: 12-09-2017 take 60-1200 mg by mouth every twelve hours Dextromethorphan- Guaifenesin (Mucinex Dm) 60-1,200 mg tablet extended release 12 hr Active 1 TABLET PO Q12H December 09, 2017 12:00am Norethindrone-E.Estrad iol-Iron (4 sources) Estrogen Start: 09-03-2017 [...] TABLET PO daily September 03, 2017 1:00am Multivit 18-Vihi-Jdqntr 1-Dh a (Pnv-Dha) 27 mg iron-1 mg -300 mg capsule (4 sources) Start: 04-16-2025 Multivit 47-Ir on-Folate 1-Dha (Pnv-Dha) 27 mg iron-1 mg -300 mg capsule Active NMA PO April 16, 2025 12:00am Complies with drug therapy Start: 04-16-2025 sod bicarb-sod chlor-neti po t (NEILMED NASAFLO) pkdv (1 source) Start: 06-05-2024 End: 07-05-2024 sod bicarb-sod chlor-neti po t (NEILMED NASAFLO) pkdv Indications: Sinobronchitis 1 Packet by sinus irrigation route once daily as needed. 30 Each 06/05/2024 07/05/2024 Active Completed/Discontinued Medications Medication Drug Class(es) Dates Sig (Normalized) Sig (Original) acetaminophen 500 mg oral tablet (2 sources) End: 08-27-2024 take 1 tablet by mouth every eight hours as needed acetaminophen (TYLENOL EXTRA STRENGTH) 500 mg tablet Take 500 mg by mouth every 8 hours as needed. 08/27/2024 Discontinued acetaminophen 325 mg / oxyCODONE hydrochloride 5 mg oral tablet (6 sources) Opioid Agonist Start: 02-19-2024 End: 03-04-2024 take 1-2 tablets by mouth every four hours as needed for pain Oxycodone-Acetamin ophen (Percocet) 5-325 mg tablet Discontinued 1 {tbl} PO Q4H as needed for pain 7 0 February 19, 2024 March 04, 2024 1:42pm Status post delivery History of uterine scar from previous surgery 1-2 tabs q 4 hrs as needed for pain benzonatate 200 mg oral capsule (2 sources) Non-narcotic Antitussive Start: 04-30-2017 BENZONATATE 200 MG CAPS 1 capsule every 8 hours as needed for cough BENZONATATE [id number] Clint HIGGINS benzoyl peroxide 0.05 mg/mg / [...] Comment on above: take 1 capsule [address] [facility] four times a day for 7 days doxylamine succinate 25 mg oral tablet (8 sources) Start: 09-21-2023 End: 01-05-2024 take 1 tablet by mouth at bedtime as needed Doxylamine Succinate (Unisom (Doxylamine)) 25 mg tablet Discontinued 25 mg PO AT BEDTIME as needed September 21, 2023 1:00am January 05, 2024 2:06am fluconazole 150 mg oral tablet (8 sources) Azole Antifungal Start: 09-21-2023 End: 01-05-2024 Fluconazole 150 mg tablet Discontinued 150 mg PO Every 3 Days 2 0 September 21, 2023 1:00am January 05, 2024 2:06am ibuprofen 800 mg oral tablet (6 sources) Nonsteroidal Anti-inflammatory Drug Start: 02-19-2024 End: 04-01-2024 take 1 tablet by mouth every eight hours as needed for pain Ibuprofen 800 mg tablet Discontinued 800 mg PO Q8H as needed for pain 30 0 February 19, 2024 12:00am April 01, 2024 1:20pm Magnesium (15 sources) Start: 03-02-2023 End: 08-18-2023 take 1 tablet by mouth once daily Magnesium 250 mg tablet Discontinued 250 mg PO DAILY March 02, 2023 12:00am August [...] MG PO DAILY March 02, 2023 12:00am NIFEdipine 10 mg oral capsule (6 sources) Dihydropyridine Calcium Channel Jabari Start: 01-14-2024 End: 02-19-2024 take 1 capsule by mouth every six hours as needed Nifedipine 10 mg capsule Discontinued 10 mg PO EVERY 6 HOURS as needed for contractions 30 3 January 14, 2024 12:00am February 19, 2024 5:51pm NORETHIN SARAH-ETH ESTRAD-FE TABS (1 source) Start: 04-30-2017 JUNEL FE 24 TABS as directed NORETHIN SARAH-ETH ESTRAD-FE TABS [id number] Luisa Rabia Grover [employer] Pnv Cmb#95-Ferrous Fumarate-Fa () 28 mg iron- 800 mcg tablet (11 sources) Start: 03-02-2023 End: 03-04-2024 Pnv Cmb#95-Ferrous Fumarate-Fa () 28 mg iron- 800 mcg tablet Discontinued 1 {tbl} PO DAILY March 02, 2023 12:00am March 04, 2024 1:42pm Start: 03-02-2023 take 1 tablet by jesu th once daily Pnv Cmb#95-Ferrous Fumarate-Fa () 28 mg iron- 800 mcg tablet Active 1 TABLET PO DAILY March 01, 2023 11:00pm Start: 03-02-2023 take 1 tablet by jesu th once daily Pnv Cmb#95-Ferrous Fumarate-Fa () 28 mg iron- 800 mcg tablet Active 1 TABLET PO DAILY March 02, 2023 12:00am Pnv No.95-Ferrous Fumarate-F a () 28 mg iron- 800 mcg tablet (4 sources) Start: 03-02-2023 End: 03-04-2024 Pnv No.95-Ferrous Fumarate-F a () 28 mg iron- 800 mcg tablet Discontinued 1 {tbl} PO DAILY March 02, 2023 12:00am March 04, 2024 1:42pm Ado821-Onvwalw Fumarate-Fa () 28-800 mg-mcg tablet (6 sources) Start: 02-12-2024 End: 04-16-2025 Wzu661-Ataffrc Fumarate-Fa () 28-800 mg-mcg tablet Discontinued {tbl} PO February 12, 2024 12:00am April 16, 2025 9:52am Start: 02-12-2024 Ebk649-Cabnvrh Fumarate-Fa () 28-800 mg-mcg tablet Active {tbl} PO February 12, 2024 12:00am sulfacetamide sodium 100 mg/ml ophthalmic solution (19 sources) Sulfonamide Antibacterial Start: 09-07-2017 End: 09-12-2017 Sulfacetamide Sodium (Bleph-10) 10 % drops Discontinued 1 NMA OPHTHALMIC Q3H 15 5 0 September 07, 2017 1:00am September 11, 2017 1:00am September 12, 2017 1:05am Unspecified acute conjunctivitis, unspecified eye Start: 09-07-2017 End: 09-12-2017 Sulfacetamide Sodium (Bleph- 10) 10 % drops Discontinued 1 DRP OPHTHALMIC Q3H 15 5 September 07, 2017 1:00am September 12, 2017 1:05am vitamin b6 100 mg oral tablet (8 sources) Start: 09-21-2023 End: 01-05-2024 take 1 tablet by mouth at bedtime Pyridoxine (Vitamin B6) 100 mg tablet Discontinued 100 mg PO BEDTIME September 21, 2023 1:00am January 05, 2024 2:07am Problems Active Problems Problem Classification Problem Date Documented Da te Episodic/Chronic Diseases of mouth; excluding dental (1 source) Geographic tongue; Translations: [Geographic tongue] Episodic Early or threatened labor (6 sources) Premature uterine contraction; Translations: [False labor before 37 completed weeks of gestation, unspecified trimester] 02-26-2024 Episodic Comment on above: no cervical change, no further pain or discomfort. Gastrointestinal hemorrhage (10 sources) Hematemesis; Translations: [Hematemesis] 08-18-2023 Episodic Genitourinary congenital anomalies (20 sources) Bicornuate uterus; Translations: [Bicornate uterus] Onset: 05-26-2025 07-27-2023 Chronic Comment on above: in left ho rn Hemorrhage during ; abruptio placenta; placenta previa (20 sources) Subchorionic hematoma; Translations: [Other antepartum hemorrhage, unspecified trimester] Onset: 05-26-2025 07-09-2023 Episodic Immunizations and screening for infectious disease (9 sources) Patient encounter status; Translations: [Encounter for screening for infections with a predominantly sexual mode of transmission] Onset: 05-26-2025 Episodic Comment on above: *PRIOR * So n had Lulu Inflammation; infection of eye (except that caused by tuberculosis or sexually transmitteddisease) (19 sources) Acute infectious conjunctivitis; Translations: [Unspecified acute conjunctivitis, unspecified eye] 09-07-2017 Episodic Influenza (19 sources) Influenza due to Influenza A virus; Translations: [Influenza due to other identified influenza virus with other respiratory manifestations] 09-03-2017 Episodic Lymphadenitis (2 sources) Enlarged lymph nodes, unspecified; Translations: [Localized enlarged lymph nodes] Onset: 04-16-2025 Episodic Menstrual disorders (20 sources) Menstrual spotting; Translations: [Excessive and frequent menstruation with regular cycle] Onset: 05-26-2025 07-09-2023 Chronic Comment on above: HCGx2 Nausea and vomiting (10 sources) Vomiting; Translations: [Vomiting, unspecified] 08-18-2023 Episodic Other circulatory disease (11 sources) Raynaud's disease; Translations: [Raynaud's syndrome without gangrene] 08-02-2023 Chronic Comment on above: suspected Other circulatory disease (9 sources) Raynaud's syndrome without gangrene; Translations: [Raynaud's syndrome] 08-02-2023 Chronic Other complications of (19 sources) H/O: miscarriage; Translations: [Supervision of with other poor reproductive or obstetric history, unspecified trimester] 07-27-2023 Episodic Comment on above: @13wks 12/19 Other complications of (19 sources) High risk ; Translations: [Supervision of high risk , unspecified, unspecified trimester] 07-27-2023 Episodic Comment on above: PRR , ONDINA 4, Medardo , ONDINA 11/27/25, PC Sundeep, Medardo Other complications of (15 sources) Supervision of with other poor reproductive or obstetric history, unspecified trimester; Translations: [Supervision of high-risk with history of ] Onset: 05-26-2025 08-02-2023 Episodic Other complications of (16 sources) Supervision of high risk , unspecified, unspecified trimester; Translations: [Supervision of unspecified high-risk ] Onset: 05-26-2025 08-02-2023 Episodic Other complications of (6 sources) Vaginal discharge; Translations: [Other specified related conditions, unspecified trimester] 02-05-2024 Episodic Comment on above: rom neg Other complications of (8 sources) H/O: depression; Translations: [History of depression, currently ] 04-16-2025 Episodic Other connective tissue disease (2 sources) Pain in finger of left hand; Translations: [Pain in left finger(s)] Episodic Other female genital disorders (7 sources) Intrauterine synechiae; Translations: [Intrauterine synechiae] 11-05-2023 Episodic Comment on above: right lateral synech iae. no involvement. Growth US q4 weeks. Other female genital disorders (2 sources) Intrauterine synechiae; Translations: [Intrauterine synechiae] 11-05-2023 Episodic Other infections; including parasitic (8 sources) History of human papilloma virus infection; Translations: [Personal history of other infectious and parasitic diseases] 04-16-2025 Episodic Comment on above: +HPV 2019, colp nml, negative since Other infections; including parasitic (1 source) Personal history of other infectious and parasitic diseases; Translations: [Personal history of other infectious and parasitic diseases] Onset: 05-26-2025 Episodic Other lower respiratory disease (2 sources) Cough; Translations: [Acute cough] Onset: 04-30-2017 04-30-2017 Episodic Other lower respiratory disease (1 source) Cough; Translations: [Acute cough] 06-05-2024 Episodic Other and delivery including normal (20 sources) ; Translations: [Encounter for supervision of normal , unspecified, unspecified trimester] 08-07-2023 Episodic Comment on above: Neg GBS normal anato my. declines genetic & carrier testing. Declines AFP declined NIPT & Boykin ier testing Other screening for suspected conditions (not mental [...] [Chronic sinusitis, unspecified] Onset: 06-05-2024 06-05-2024 Chronic Residual codes; unclassified (1 source) FH: Thyroid disorder; Translations: [Family history of other endocrine, nutritional and metabolic diseases] 03-29-2023 Episodic Residual codes; unclassified (8 sources) FH: Blood disorder; Translations: [Family history of diseases of the blood and blood-forming organs and certain disorders involving the immune mechanism] 04-16-2025 Episodic Comment on above: Pt's Father in law Residual codes; unclassified (3 sources) Hematopoietic system finding; Translations: [Antiglobulin test positive] 04-16-2025 Episodic Comment on above: *PRIOR * So n had Lulu Residual codes; unclassified (1 source) History of uterine scar from previous surgery; Translations: [History of uterine scar from previous surgery] Onset: 05-26-2025 Episodic Residual codes; unclassified (1 source) Family history of diseases of the blood and blood-forming organs and certain disorders involving the immune mechanism; Translations: [Family history of diseases of the blood and blood-forming organs and certain disorders involving the immune mechanism] Onset: 05-26-2025 Episodic Residual codes; unclassified (1 source) 12 weeks gestation of ; Translations: [12 weeks gestation of ] Onset: 05-26-2025 Episodic Residual codes; unclassified (1 source) 9 weeks gestation of ; Translations: [9 weeks gestation of ] Onset: 04-28-2025 Episodic Residual codes; unclassified (1 source) Other specified health status; Translations: [Other specified health status] Onset: 04-17-2025 Episodic Screening and history of mental health and substance abuse codes (3 sources) Encounter for screening examination for other mental health and behavioral disorders; Translations: [Encounter for screening for depression] Onset: 08-27-2024 Episodic Unclassified (1 source) Acute cough; Translations: [Acute cough] Onset: 06-05-2024 Unclassified (1 source) Other specified diseases and conditions complicating ; Translations: [Other specified diseases and conditions complicating ] Onset: 05-26-2025 Past or Other Problems Problem Classification Problem Date Documented Da te Episodic/Chronic Chronic obstructive pulmonary disease and bronchiectasis (2 sources) Bronchitis; Translations: [Bronchitis, not specified as acute or chronic] Onset: 04-30-2017 04-30-2017 Episodic Fever of unknown origin (2 sources) Fever; Translations: [Fever, unspecified] Onset: 06-05-2024 06-05-2024 Episodic Nonspecific chest pain (2 sources) Chest pain; Translations: [Chest pain, unspecified] Onset: 08-27-2024 08-27-2024 Episodic Unclassified (6 sources) Breech position of fetus 02-20-2024 Comment on above: Confirm US. Wants JUDI Manuel Sees JV 02/10 to discuss Results Test Name Value Interpretation Reference Range Facility Transvaginal w/Preg USon Transvaginal w/Preg US [facility] [address] [place] [address] Transvaginal w/Preg US MR#: [id number] Acct: [id number] Name: KIM LOTT Rep #: [id number] : 1995 30 From: Adan luque MD PCP: Dr. [place] Lopez MD Status: [facility] Study: Transvaginal w/Preg US Date of Exam: 05/27/25 Exam# [id number] Ordering Dr: Kair Vanegas PROCEDURE: TRANSVAGINAL W/PREG US 05/27/2025 REASON FOR EXAM: CHECK PLACENTA PLACEMENT, R/O PREVIA TECHNIQUE: Procedure Code: USTVAGP Modality: US Procedure: TRANSVAGINAL W/PREG US COMPARISON: April 14, 2025. FINDINGS: Comments: LMP: February 25, 2025. Number of Gestational Sacs: 1 Gestational Sac Shape: Normal Number of Fetuses: 1 Heart Rate: 161 beats per minute (average) Survey of Visible Anatomic Structures: Grossly unremarkable for gestational age. Yolk Sac: Present and unremarkable. Placenta: Presently not well-visualized placenta appears to be posterior in position and not low- lying. Amniotic Fluid Volume: Subjectively normal for gestational age. Uterine Abnormalities: Maternal uterus is unremarkable. Ovaries / Adnexa: Right ovary is unremarkable. Left ovary was not visualized. DIMENSIONS: Parameter Measurement / EGA Ostrander Rump Length: 5.3 cm/11 weeks and 6 days Gestational Sac: 5 cm/10 weeks and 5 days Yolk Sac: Nonvisualized./ ESTIMATED GESTATIONAL AGE: By Ultrasound: 11 weeks and 1 day By LMP: 13 weeks ESTIMATED DATE OF DELIVERY: By Ultrasound: December 15, 2025 By LMP: December 02, 2025 US/Transvaginal w/Preg US IMPRESSION: Live intrauterine gestation with a mean gestational age of 11 weeks and 1 day. Reading Location: [id number] CC: Dr. Kari Vanegas MD; Dr. [place] Lopez MD Seasonal Warehouse Associate: Signed Normal [facility] Front Desk Host Office Visit Reporton 05-26-2025 Front Desk Host Office Visit Report [facility]'s [address], [address] [place] [address] OFFICE VISIT Date of Service: 05/26/25 MR#: [id number] Acct: [id number] Name: KIM LOTT Rep #: [id number] : 1995 Provider: Dr. Kari mejia MD Age/Sex: 30/F Location: [facility] Status: Signed Intake Vital Signs 05/04/25 09:14 05/26/25 15:35 05/26/25 15:37 Height 5 ft 7 in 5 ft 7 in 5 ft 7 in Weight: 136 lb 2 oz 141 lb 3 oz BMI 21.3 22.1 BP 117/79 136/84 H Intake Visit Reasons: OB, bleeding Molasses Preparer Required: No Is patient in pain?: No Allergies pollen extracts Allergy (Verified 05/26/25 15:35) Unknown Medications ???Medication ???Instructions ???Recorded ???Confirmed ???Type multivitamin no.47-iron fum 27 cap PO 04/16/25 05/26/25 History mg-folate no.1 1 mg-dha 300 mg capsule (PNV-DHA) Last Menstrual Period: 06/03/23 Zika: Zika virus screening: Negative : No PFSH PFSH Medical History Bicornate uterus History of miscarriage, currently Supervision of high-risk contractions Abnormal Pap smear of cervix Seasonal allergies Raynauds disease Non-smoker Acute bacterial conjunctivitis Influenza A Surgical History Hx of section H/O dilation and curettage History of wisdom tooth extraction ( 12/2021) History of appendectomy ( 2003) Family History Mother Hypertension Hypothyroidism Social History adopted: No household members: spouse and children housing: house number of children: 1 current occupational status: employed 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 occupational exposures/hazards: No pets and animals: Yes pets and animals: dog(s) history of recent travel: Yes ( -January, -December) out of state: Yes out of country: No sexually active: Yes Smoking Status: Never smoker alcohol intake: former year quit: 2024 substance use type: does not use well-balanced diet: about half the time caffeine: No eating out: 1-3 times/week during the past year weight has: decreased > 10 lbs what type of physical activity do you participate in: walking frequency: 1-2 times per week duration: 15-30 minutes/day juan daniel/caodaism: [employer] seatbelt use: always do you feel safe at home: Yes additional social history: Medardo- Mophie History 3 Elective abortions Hx Para 1 Spontaneous abortions 1 Hx # Term Pregnancies Ectopic pregnancies Hx # Pregnancies Multiple births # of living children 1 Past Pregnancies Del. Date Name GA/Weeks Outcome Route Bth Weight Gen Labor Lgth Anesthesia Del Locatn Provider FOB 03/05/23 miscarriage 13 spontaneous 02/19/24 Sundeep 37 live - full term 7lbs Male spinal [facility] JV Medardo Delivery Date: 03/05/23 Last Updated by: Gini Juan Delivery Date: 02/19/24 Last Updated by: Kaitlynn Rousseau RN primary section for breech HPI OB, bleeding Details: HPI: The patient is a 30-year-old female, , with a history of a bicornuate uterus, presenting with vaginal bleeding during . Vaginal Bleeding - Reports fresh red blood daily for the past couple of weeks, with an increase in bleeding over the last 24-48 hours. - Denies cramping or pain associated with the bleeding. - No bladder issues such as urgency, frequency, or pain on urination. - No bowel issues, including nausea, vomiting, bloating, diarrhea, or constipation. History - Currently , with an estimated due date of December 02. - Last formal ultrasound was at 6 weeks gestation, which showed measurements consistent with gestational age; due date was not changed. - Reports no nausea with this , which is different from her last with Sundeep, where she experienced significant nausea during the first trimester until about 14 weeks. Obstetric History - . - Has a [id number] son, Sundeep, who is reportedly doing well. Past Medical History - Bicornuate uterus. Subjective Sections: PMHx - Bicornuate uterus ROS: Gastrointestinal: (-) nausea, (-) vomiting, (-) abdominal bloating, (-) diarrhea, (-) constipation Genitourinary: (+) vaginal bleeding, (-) pelvic cramping, (-) urinary urgency, (-) urinary frequency, (-) dysuria PhysicalExam: GENERAL: Pleasant; in no apparent distress PULMONARY: normal inspiratory effort ABDOMEN: soft, non-tender, no masses, heart tones present, estimated at 170 beats per minute : - PELVIC: external genitalia luis felipe (more content not included)... Normal [place] [facility] Front Desk Host Office Visit Reporton 05-04-2025 Front Desk Host Office Visit Report [facility] [address], [address] [place] [address] OFFICE VISIT Date of Service: 05/04/25 MR#: [id number] Acct: [id number] Name: KIM LOTT Rep #: [id number] : 1995 Provider: JESUS Francis ams Age/Sex: 30/F Location: [facility] Status: Signed Intake Vital Signs 04/28/25 14:01 05/04/25 09:14 Height 5 ft 7 in 5 ft 7 in Weight: 136 lb 2 oz BMI 21.3 BP 117/79 Intake Visit Reasons: 9.5w, bleeding Chief Complaint: 9wk OB, Bleeding Molasses Preparer Required: No Is patient in pain?: No Allergies pollen extracts Allergy (Verified 05/04/25 09:12) Unknown Medications ???Medication ???Instructions ???Recorded ???Confirmed ???Type multivitamin no.47-iron fum 27 cap PO 04/16/25 05/04/25 History mg-folate no.1 1 mg-dha 300 mg capsule (PNV-DHA) Last Menstrual Period: 06/03/23 : No PFSH PFSH Medical History Bicornate uterus History of miscarriage, currently Supervision of high-risk contractions Abnormal Pap smear of cervix Seasonal allergies Raynauds disease Non-smoker Acute bacterial conjunctivitis Influenza A Surgical History Hx of section H/O dilation and curettage History of wisdom tooth extraction ( 12/2021) History of appendectomy ( 2003) Family History Mother Hypertension Hypothyroidism Social History adopted: No household members: spouse and children housing: house number of children: 1 current occupational status: employed 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 occupational exposures/hazards: No pets and animals: Yes pets and animals: dog(s) history of recent travel: Yes (, -December) out of state: Yes out of country: No sexually active: Yes Smoking Status: Never smoker alcohol intake: former year quit: 2024 substance use type: does not use well-balanced diet: about half the time caffeine: No eating out: 1-3 times/week during the past year weight has: decreased > 10 lbs what type of physical activity do you participate in: walking frequency: 1-2 times per week duration: 15-30 minutes/day juan daniel/caodaism: [employer] seatbelt use: always do you feel safe at home: Yes additional social history: Medardo- Mophie History 3 Elective abortions Hx Para 1 Spontaneous abortions 1 Hx # Term Pregnancies Ectopic pregnancies Hx # Pregnancies Multiple births # of living children 1 Past Pregnancies Del. Date Name GA/Weeks Outcome Route Bth Weight Infant Gen Labor Lgth Anesthesia Del Locatn Provider FOB 03/05/23 miscarriage 13 spontaneous 02/19/24 Sundeep 37 live - full term 7lbs Male spinal [facility] JV Medardo Delivery Date: 03/05/23 Last Updated by: Gini Juan Delivery Date: 02/19/24 Last Updated by: Kaitlynn Rousseau, RN primary section for breech HPI 9.5w, bleeding Details: KIM LOTT is a 30 year old who presents for routine OB visit. OB Visit ONDINA Calculator Estimated Delivery Date Method Current WG Current Estimate 12/02/25 Ultrasound #2 9w 5d Other Estimates 11/27/25 Ultrasound #1 10w 3d Expected Delivery Route/Plan for repeat cs with JV at 39 weeks Specific Issue/Plans Covid status: [] Flu vaccine: [] Tdap vaccine: [] Rhogam: [] LARC form signed: [] Problem list reviewed and updated with the most current plan of care details and appropriate orders placed. Relevant counseling for the gestational age provided. Continue routine care and follow up unless otherwise noted in visit notes/problem list details Initial Weight: Not Recorded Date -???-???-???-???-??? -???-???-???-???-??? -???-???- EGA Weight BP Urine Prot -???-???-???-???-??? -???-???-???-???-??? -???-???- Glucose FHR FuHt Pres Dilation -???-???-???-???-??? -???-???-???-???-??? -???-???- Effaced St Visit Note 04/28/25 -???-???-???-???-??? -???-???-???-???-??? -???-???- 8w 6d 138 lb 6 oz 120/80 -???-???-???-???-??? -???-???-???-???-??? -???-???- 188 -???-???-???-???-??? -???-???-???-???-??? -???-???- JV- CRL stil l consistent with last ultrasound. ONDINA 12/02/24. declines NIPT 05/04/25 -???-???-???-???-??? -???-???-???-???-??? -???-???- 9w 5d 136 lb 2 oz 117/79 -???-???-???-???-??? -???-???-???-???-??? -???-???- 179 -???-???-???-???-??? -???-???-???-???-??? -???-???- KW- work in for vaginal bleeding-had a gush of blood about 45 minutes prior to appt. no cramping. movement and FHT noted with US. CRL 2.60cm and cons with dates. blee (more content not included)... Normal [facility] Chlamydia/GC SEPIDEH aptimaon CHLAMY,NUC ACID Negative Normal Negative [facility] Comment on above: Performed By: #### M 100.2200, L7000.1800 #### [facility] [address] [place], [place], [id number] GC BY NUC ACID Negative Normal Negative [facility] Comment on above: Result Comment: Perf ormed at: =G - [facility] [address] [place], [place] [id number] Business Applications Specialist: Nohemi Lewis MD, Phone: [phone] Performed By: #### M 100.2200, L7000.1800 #### [facility] [address] [place], [place], [address] US HEAD/NECK SOFT TISSUE OTH Evangelina 05-01-2025 US HEAD/NECK SOFT TISSUE OTHER * * *Final Report* * * DATE OF EXAM: May 01 2025 1:17PM WRU 1052 - US HEAD/NECK SOFT TISSUE OTHER / PROCEDURE REASON: Swollen lymph nodes * * * * Physician Interpretation * * * * SOFT TISSUE ULTRASOUND HISTORY: Palpable abnormality LEFT neck. Swollen lymph nodes . Palpable enlarged lymph node at angle of jaw, preauricular/ just below TMJ TECHNIQUE: Images were obtained and stored in a permanent archive. Soft tissue ultrasound of the LEFT neck area of concern near mandible and TMJ. COMPARISON: None. RESULT: Ultrasound examination of the LEFT neck area of concern near mandible and TMJ shows a superficial soft tissue lesion measuring 8 x 2 x 6 mm which is either anechoic or hypoechoic with low level internal echoes. The lesion is well-circumscribed and has no internal vascularity. IMPRESSION: Subcentimeter lesion at the area of clinical interest is probably a mildly complex cystic lesion. This has no internal vascularity noted. Seasonal Warehouse Associate[facility] Transcribe Date/Time: May 05 2025 6:16A Dictated by : ROS NGUYEN MD This examination was interpreted and the report reviewed and electronically signed by: ROS NGUYEN MD on May 05 2025 6:17AM EST [id number] CN Normal [facility] Urine Cultureon 04-30-2025 URC Below infection level. Mixed Gram Pos Gram Neg Org [place] Count <1000 MIXC Mixed contaminants. Submit a new specimen if indicated. Normal [facility] Comment on above: Performed By: #### M 100.2200, L7000.1800 #### [facility] [address] [place], [place], [id number] Absolute lymphocyte countOrd ered By: Nicolle Lagos on 04-28-2025 Lymphocytes Auto (Unsp spec) [#/Vol] 1.29 10*3/uL 0.83-4.51 [facility] Absolute neutrophil countOrd ered By: Nicolle Lagos on 04-28-2025 Neutrophils (Bld) [#/Vol] 4.4 10*3/uL 2.0-7.7 [facility] Automated lymphocyte count a s percentage of total leukocytesOrdered By: Nicolle Lagos on 04-28-2025 Lymphocytes/100 WBC Auto (Unsp spec) 20.3 % 19-41 [facility] Basophil percentageOrdered B y: Nicolle Lagos on 04-28-2025 Basophils/100 WBC (Bld) 0.6 % 0-1 [facility] CBC W/Diff, Automatedon 09-3 0-2025 Absolute Lymph 1.29 X10 3/uL Normal 0.83-4.51 [facility] Comment on above: Performed By: #### L 3890.6301, L509.4006, BTS, L3890.6006, L100.0100, L509.8002, L3890.6102 #### [facility] [address] [place], [address] Absolute Neut 4.4 X10 3/uL Normal 2.0-7.7 [facility] Comment on above: Performed By: #### L 3890.6301, L509.4006, BTS, L3890.6006, L100.0100, L509.8002, L3890.6102 #### [facility] [address] [place], [address] Basophils/100 WBC (Bld) 0.6 % Normal 0-1 [facility] Comment on above: Performed By: #### L 3890.6301, L509.4006, BTS, L3890.6006, L100.0100, L509.8002, L3890.6102 #### [facility] [address] [place], [address] Eosinophils/100 WBC (Bld) 0.8 % Normal 0-5 [facility] Comment on above: Performed By: #### L 3890.6301, L509.4006, BTS, L3890.6006, L100.0100, L509.8002, L3890.6102 #### [facility] [address] [place], [address] Erythrocyte distribution width (RBC) [Ratio] 11.8 % Normal 11.6-14.6 [facility] Comment on above: Performed By: #### L 3890.6301, L509.4006, BTS, L3890.6006, L100.0100, L509.8002, L3890.6102 #### [facility] [address] [place], [address] Hematocrit (Bld) [Volume fraction] 40.4 % Normal 37-47 [facility] Comment on above: Performed By: #### L 3890.6301, L509.4006, BTS, L3890.6006, L100.0100, L509.8002, L3890.6102 #### [facility] [address] [place], [address] Hemoglobin (Bld) [Mass/Vol] 13.3 g/dL Normal 12.0-15.0 [facility] Comment on above: Performed By: #### L 3890.6301, L509.4006, BTS, L3890.6006, L100.0100, L509.8002, L3890.6102 #### [facility] [address] [place], [address] IG% 0.300 Normal 0.0-0.9 [facility] Comment on above: Result Comment: IG% - Immature Granulocytes (promyelocytes, myelocytes and metamyelocytes) > 1% indicates that a LEFT SHIFT is Present. Performed By: #### L 3890.6301, L509.4006, BTS, L3890.6006, L100.0100, L509.8002, L3890.6102 #### [facility] [address] [place], [address] Lymphocytes/100 WBC (Bld) 20.3 % Normal 19-41 [facility] Comment on above: Performed By: #### L 3890.6301, L509.4006, BTS, L3890.6006, L100.0100, L509.8002, L3890.6102 #### [facility] [address] [place], [address] MCH (RBC) [Entitic mass] 30.2 pg Normal 27.0-32.0 [facility] Comment on above: Performed By: #### L 3890.6301, L509.4006, BTS, L3890.6006, L100.0100, L509.8002, L3890.6102 #### [facility] [address] [place], [address] MCHC (RBC) [Mass/Vol] 32.9 g/dL Normal 32-36 [facility] Comment on above: Performed By: #### L 3890.6301, L509.4006, BTS, L3890.6006, L100.0100, L509.8002, L3890.6102 #### [facility] [address] [place], [address] MCV (RBC) [Entitic vol] 91.8 fL Normal 81-99 [facility] Comment on above: Performed By: #### L 3890.6301, L509.4006, BTS, L3890.6006, L100.0100, L509.8002, L3890.6102 #### [facility] [address] [place], [address] Monocytes/100 WBC (Bld) 8.6 % Normal 0-10 [facility] Comment on above: Performed By: #### L 3890.6301, L509.4006, BTS, L3890.6006, L100.0100, L509.8002, L3890.6102 #### [facility] [address] [place], [address] Neutrophils/100 WBC (Bld) 69.4 % Normal 47-70 [facility] Comment on above: Performed By: #### L 3890.6301, L509.4006, BTS, L3890.6006, L100.0100, L509.8002, L3890.6102 #### [facility] [address] [place], [address] Nucleated RBC (Bld) [#/Vol] 0 10*3/uL Normal 0-5 [facility] Comment on above: Performed By: #### L 3890.6301, L509.4006, BTS, L3890.6006, L100.0100, L509.8002, L3890.6102 #### [facility] [address] [place], [address] Platelet mean volume (Bld) [Entitic vol] 9.8 fL Normal 6.2-12.0 [facility] Comment on above: Performed By: #### L 3890.6301, L509.4006, BTS, L3890.6006, L100.0100, L509.8002, L3890.6102 #### [facility] [address] [place], [address] Platelets (Bld) [#/Vol] 261 10*3/uL Normal 150-450 [facility] Comment on above: Performed By: #### L 3890.6301, L509.4006, BTS, L3890.6006, L100.0100, L509.8002, L3890.6102 #### [facility] [address] [place], [address] RBC (Bld) [#/Vol] 4.40 10*6/uL Normal 4.2-5.4 [facility] Comment on above: Performed By: #### L 3890.6301, L509.4006, BTS, L3890.6006, L100.0100, L509.8002, L3890.6102 #### [facility] [address] [place], [address] RDW SD 39.8 fl Normal 35.1-43.9 [facility] Comment on above: Performed By: #### L 3890.6301, L509.4006, BTS, L3890.6006, L100.0100, L509.8002, L3890.6102 #### [facility] [address] [place], [place], [address] WBC (Bld) [#/Vol] 6.4 10*3/uL Normal 4.4-11.0 [facility] Comment on above: Performed By: #### L 3890.6301, L509.4006, BTS, L3890.6006, L100.0100, L509.8002, L3890.6102 #### [facility] [address] [place], [address] CNOVon 04-28-2025 CNOV Office Visit (FAMPWS) KIM LOTT ([id number]) 1995 F Date Time Provider Department 04/28/25 12:40 PM [facility] During your visit today, we recorded the following information about you: Pulse Blood pressure Weight 115/minute 126/68 62.1 kg Luli Plummer APRN.FRENCH PROFESSOR 04/28/2025 12:50 PM Signed This is a 30 year old female who presents today with: Patient presents with: Follow Up: Follow up on enlarged lymph node HISTORY OF PRESENT ILLNESS: Kim Lott is a 30 year old female. Patient presents with: Follow Up: Follow up on enlarged lymph node The patient is a 30-year-old female presenting for evaluation of a persistent neck mass. Neck Mass: - Noted a decrease in size of the neck mass, but it is still palpable, especially when turning her head. - Completed a course of amoxicillin, finishing on Sunday. - Denies pain with light touch; reports soreness with aggressive pressure. - Denies headache, fever, chills, or periods of profuse sweating. - Completed all antibiotic : - Currently ; experiencing nausea. - Reports this is a lot calmer compared to her first, with less nausea and dry heaving. - Has an OB appointment scheduled at 1400 today. - Has a son at home; had a late miscarriage before her son. PAST MEDICAL HISTORY: PAST MEDICAL HISTORY Diagnosis Date Cervical high risk HPV (human papillomavirus) test positive 2017 PAST SURGICAL HISTORY Procedure Laterality Date APPENDECTOMY HX 2004 SNGL 02/19/2024 DANDC SUCTION 03/05/2023 missed ab VAGINOSCOPY 2017 ALLERGIES Pollen Extracts MEDICATIONS No current outpatient medications on file. No current facility-administere d medications for this visit. FAMILY HISTORY Problem Relation Age of Onset Hypothyroidism Mother No Known Problems Father No Known Problems Brother No Known Problems Brother Cancer Maternal Grandfather SOCIAL HISTORY[1] REVIEW OF SYSTEMS Head: (-) headache Neck: (+) left neck mass Gastrointestinal: (+) nausea EXAM: BP 126/68 (BP Site: Left Arm, BP Position: Sitting) Pulse 115 Wt 62.1 kg (137 lb) LMP 05/30/2023 (Approximate) SpO2 98% BMI 21.46 kg/m? PHYSICAL EXAM: GENERAL: NAD, alert and oriented. SKIN: Unremarkable, no rash or skin lesions. HEAD: Normocephalic. EARS: External ears normal, canals clear, TM's normal. NOSE/SINUSES: Nares boggy and pink. Septum midline. OROPHARYNX: Lips, mucosa, and tongue normal, good dentition. No oral lesions noted. NECK: Supple, no lymphadenopathy, normal thyroid, no carotid bruits. Palpable gland noted- blueberry sized, smaller than previous exam, non-tender to light touch at angle of left TMJ. LABS: ASSESSMENT/PLAN: 1. Swollen lymph nodes (R59.9) - Lymphadenopathy has decreased in size but is still palpable; no associated fever, chills, or diaphoresis. - Completed course of amoxicillin on Sunday. - Order ultrasound to further evaluate persistent lymphadenopathy; discussed that this is safe during . Discussed treatment plan and patient voices understanding. Patient's questions answered appropriately. Medications and potential side effects were discussed and patient voices understanding. Return to the office as scheduled or as needed for worsening/no improvement. Luli Plummer, LOTUS.FRENCH PROFESSOR [1] Social History Tobacco Use Smoking status: Never Smokeless tobacco: Never Vaping Use Vaping status: Never Used Substance Use Topics Alcohol use: Yes Comment: occasional Drug use: Never Luli Plummer APRN.CNP 04/28/2025 12:50 PM Signed 1) schedule ultrasound neck at desk Allergies As of Date: 04/28/2025 Noted Allergy Reaction POLLEN EXTRACTS 04/30/2017 14 - Other: See Comments Date Reviewed: 04/28/2025 Reviewed by: Mara Minor MA - Fully Assessed Reason for Visit: Follow Up [171] Cmt: Follow up on enlarged lymph node Primary Visit Diagnosis:Swollen lymph nodes [R59.9] Order(s):US HEAD/NECK SOFT TISSUE OTHER [5018030] Order #: [id number] FUTURE Problem List As Of Date: 04/28/2025 (None) Other instructions from your clinician: 1) schedule ultrasound neck at desk Level of Service: OFFICE/OUTPATIENT ESTABLISHED LOW MDM 20 MIN [27346] Additional E/M codes: VISIT CPLX INHERENT EANDM ASSOC WITH MED * Encounter Status:Closed by LULI PLUMMER on 04/28/25 Normal [facility] Chlamydia trachomatis rRNA d etection by probe and target amplification methodOrdered By: Nicolle Lagos on 04-28-2025 C. trachomatis rRNA SEPIDEH+probe Ql (Unsp spec) Negative Negative [facility] Eosinophil percentageOrdered By: Nicolle Lagos on 04-28-2025 Eosinophils/100 WBC (Bld) 0.8 % 0-5 [facility] Erythrocyte distribution wid th ratioOrdered By: Nicolle Lagos on 04-28-2025 Erythrocyte distribution width (RBC) [Ratio] 11.8 % 11.6-14.6 [facility] Erythrocyte distribution wid th standard deviationOrdered By: Nicolle Lagos on 04-28-2025 Erythrocyte distribution width (RBC) [Ratio] 39.8 fl 35.1-43.9 [facility] HIVon 04-28-2025 HIV Non-Reactive Normal Nonreactive [facility] Comment on above: Result Comment: Non- Reactive Reactive Repeatedly reactive samples must be confirmed according to CDC recommended confirmatory algorithms. The subresults for either HIVAG or AHIV can be used as an aid in the selection of the confirmation algorithm for reactive samples. Send out specimens with Reactive results to [facility] for confirmation. Order the HIV antibody detection and differentiation: [id number] Performed By: #### L 3890.6301, L509.4006, BTS, L3890.6006, L100.0100, L509.8002, L3890.6102 ####[facility] [id number] [place], [address] Hematocrit Auto (Bld) [Volum e fraction]Ordered By: Nicolle Lagos on 04-28-2025 Hematocrit (Bld) [Volume fraction] 40.4 % 37-47 [facility] Hemoglobin measurementOrdere d By: Nicolle Lagos on 04-28-2025 Hemoglobin (Bld) [Mass/Vol] 13.3 g/dL 12.0-15.0 [facility] Hepatitis C Antibodyon 04-28 Hepatitis C Ab Non-Reactive Normal Nonreactive [facility] Comment on above: Result Comment: Reac tive: Presumptive evidence of antibodies to HCV. Follow CDC recommendations for supplemental testing. Non-Reactive: Antibodies to HCV were not detected; does not exclude the possibility of exposure to HCV Reactive Results are presumptive evidence of antibodies to HCV. Follow CDC recommendations for supplemental testing. Order confirmation testing: HCV Quant by PCR testing - HCVPCR #[id number] Non Reactive: < 0.8 Equivocal: >/= 0.8 to < 1.0 Reactive: >/= 1.0 The CDC requires that a reactive/equivocal HCV antibody result be sent out for confirmation. HCV Quant by PCR testing. Performed By: #### L 3890.6301, L509.4006, BTS, L3890.6006, L100.0100, L509.8002, L3890.6102 ####[facility] [id number] [place], [address] Immature granulocytes/100 WB C Auto (Bld)Ordered By: Nicolle Lagos on 04-28-2025 Immature granulocytes/100 WBC (Bld) 0.300 % 0.0-0.9 [facility] Comment on above: IG% - Immature Granu locytes (promyelocytes, myelocytes and metamyelocytes) > 1% indicates that a LEFT SHIFT is Present. L3890.6102on 04-28-2025 HEP B Surf Ag Non-Reactive Normal Nonreactive [facility] Comment on above: Result Comment: Reac tive: Presumptive evidence of HBV. Repeatedly reactive samples must be confirmed using a neutralization test ([employer] HBsAg Confirmatory Test) Non-Reactive: HBsAg not detected; does not exclude the possibility of exposure to HBV Performed By: #### L 3890.6301, L509.4006, BTS, L3890.6006, L100.0100, L509.8002, L3890.6102 ####[facility] [id number] [place], [place], [address] L509.4006on 04-28-2025 Rubella IgG REAC Normal Nonreactive [facility] Comment on above: Result Comment: Anti body Result: Interpretation Non-Reactive: Non-Immune Reactive: Immune The following results were obtained with the [employer] Rubella IgG assay. Results from assays of other manufacturers cannot be used interchangeably. Performed By: #### L 3890.6301, L509.4006, BTS, L3890.6006, L100.0100, L509.8002, L3890.6102 ####[facility] [id number] [facility] [place], [place], [address] Laboratory - Microbiology an d Antimicrobial susceptibilityOrdered By: Nicolle Lagos on 04-28-2025 HBV surface Ag Ql (S) Non-Reactive Nonreactive [facility] Comment on above: Reactive: Presumptiv e evidence of HBV. Repeatedly reactive samples must be confirmed using a neutralization test ([employer] HBsAg Confirmatory Test)Non-Reactive: HBsAg not detected; does not exclude the possibility of exposure to HBV MCV (mean corpuscular volume ) determinationOrdered By: Nicolle Lagos on 04-28-2025 MCV (RBC) [Entitic vol] 91.8 fL 81-99 [facility] Mean corpuscular hemoglobin (MCH) determinationOrdered By: Nicolle Lagos on 04-28-2025 MCH (RBC) [Entitic mass] 30.2 pg 27.0-32.0 [facility] Mean corpuscular hemoglobin concentration (MCHC) determinationOrdered By: Nicolle Lagos on 04-28-2025 MCHC (RBC) [Mass/Vol] 32.9 g/dL 32-36 [facility] Mean platelet volume determi nationOrdered By: Nicolle Lagos on 04-28-2025 Platelet mean volume (Bld) [Entitic vol] 9.8 fL 6.2-12.0 [facility] Monocyte percentageOrdered B y: Nicolle Lagos on 04-28-2025 Monocytes/100 WBC (Bld) 8.6 % 0-10 [facility] Neisseria gonorrhoeae nuclei c acid detection by amplified probe techniqueOrdered By: Nicolle Lagos on 04-28-2025 N. gonorrhoeae DNA SEPIDEH+probe Ql (Unsp spec) Negative Negative [facility] Comment on above: Performed at: =[address] [id number] Director: Nohemi Lewis MD, Phone: [phone] Neutrophil percentageOrdered By: Nicolle Lagos on 04-28-2025 Neutrophils/100 WBC (Bld) 69.4 % 47-70 [facility] No Panel InformationOrdered By: Nicolle Lagos on 04-28-2025 HIV (1&2) Antibody Non-Reactive Nonreactive [facility] Comment on above: Non-ReactiveReactive Repeatedly reactive samples must be confirmed according to CDC recommended confirmatory algorithms. The subresults for either HIVAG or AHIV can be used as an aid in the selection of the confirmation algorithm for reactive samples.Send out specimens with Reactive results to [facility] for confirmation.Order the HIV antibody detection and differentiation: #[id number] Nucleated red blood cell per centageOrdered By: Nicolle Lagos on 04-28-2025 Nucleated RBC/100 WBC (Bld) [Ratio] 0 % 0-5 [facility] Front Desk Host Office Visit Reporton 04-28-2025 Front Desk Host Office Visit Report [facility]'[address], [address] [place] [address] OFFICE VISIT Date of Service: 04/28/25 MR#: [id number] Acct: [id number] Name: KIM LOTT Rep #: [id number] : 1995 Provider: Dr. Nicolle Oliveira DO Age/Sex: 30/F Location: [facility] Status: Signed Intake Vital Signs 04/01/24 13:15 04/28/25 14:01 Height 5 ft 7 in 5 ft 7 in Weight: 138 lb 6 oz BMI 21.7 BP 120/80 Intake Visit Reasons: *EST* NOB US#1 04/01/25 ONDINA 11/27/25 Chief Complaint: New OB Molasses Preparer Required: No Is patient in pain?: No Allergies pollen extracts Allergy (Verified 04/28/25 13:59) Unknown Medications ???Medication ???Instructions ???Recorded ???Confirmed ???Type multivitamin no.47-iron fum 27 cap PO 04/16/25 04/28/25 History mg-folate no.1 1 mg-dha 300 mg capsule (PNV-DHA) Last Menstrual Period: 06/03/23 Have you fallen in the past year?: No PFSH PFSH Medical History Bicornate uterus History of miscarriage, currently Supervision of high-risk contractions Abnormal Pap smear of cervix Seasonal allergies Raynauds disease Non-smoker Acute bacterial conjunctivitis Influenza A Surgical History Hx of section H/O dilation and curettage History of wisdom tooth extraction ( 12/2021) History of appendectomy ( 2003) Family History Mother Hypertension Hypothyroidism Social History adopted: No household members: spouse and children housing: house number of children: 1 current occupational status: employed 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 occupational exposures/hazards: No pets and animals: Yes pets and animals: dog(s) history of recent travel: Yes ( -January, -December) out of state: Yes out of country: No sexually active: Yes Smoking Status: Never smoker alcohol intake: former year quit: 2024 substance use type: does not use well-balanced diet: about half the time caffeine: No eating out: 1-3 times/week during the past year weight has: decreased > 10 lbs what type of physical activity do you participate in: walking frequency: 1-2 times per week duration: 15-30 minutes/day juan daniel/caodaism: [employer] seatbelt use: always do you feel safe at home: Yes additional social history: Medardo- Mophie History 3 Elective abortions Hx Para 1 Spontaneous abortions 1 Hx # Term Pregnancies Ectopic pregnancies Hx # Pregnancies Multiple births # of living children 1 Past Pregnancies Del. Date Name GA/Weeks Outcome Route Bth Weight Gen Labor Lgth Anesthesia Del Locatn Provider FOB 03/05/23 miscarriage 13 spontaneous 02/19/24 Sundeep 37 live - full term 7lbs Male spinal [facility] JV Medardo Delivery Date: 03/05/23 Last Updated by: Gini Juan Delivery Date: 02/19/24 Last Updated by: Kaitlynn Rousseau RN primary section for breech HPI *EST* NOB US#1 04/01/25 ONDINA 11/27/25 Details: KIM LOTT is a 30 year old who presents for New OB visit. OB Visit ONDINA Calculator Estimated Delivery Date Method Current WG Current Estimate 12/02/25 Ultrasound #2 8w 6d Other Estimates 11/27/25 Ultrasound #1 9w 4d Comments: HIV: Urine Culture: Sequential Screen: NIPT Screen: Estimated Due Date: 11/27/25 Expected Delivery Route/Plan for repeat cs with JV at 39 weeks Specific Issue/Plans Covid status: [] Flu vaccine: [] Tdap vaccine: [] Rhogam: [] LARC form signed: [] Problem list reviewed and updated with the most current plan of care details and appropriate orders placed. Relevant counseling for the gestational age provided. Continue routine care and follow up unless otherwise noted in visit notes/problem list details Initial Weight: Not Recorded Date -???-???-???-???-??? -???-???-???-???-??? -???-???- EGA Weight BP Urine Prot -???-???-???-???-??? -???-???-???-???-??? -???-???- Glucose FHR FuHt Pres Dilation -???-???-???-???-??? -???-???-???-???-??? -???-???- Effaced St Visit Note 04/28/25 -???-???-???-???-??? -???-???-???-???-??? -???-???- 8w 6d 138 lb 6 oz 120/80 -???-???-???-???-??? -???-???-???-???-??? -???-???- 188 -???-???-???-???-??? -???-???-???-???-??? -???-???- JV- CRL stil l consistent with last ultrasound. ONDINA 12/02/24. declines NIPT Menstrual History Last Menstrual Period: 06/03/23 On hormonal BC at conception: No Antepartum Record Genetic Screening: Congenital Heart Defect: Other, Neural Tube Defect: Other, Hemoglobinopathy Or Car (more content not included)... Normal [facility] Platelet countOrdered By: Raymond Lagos on 04-28-2025 Platelets (Bld) [#/Vol] 261 10*3/uL 150-450 [facility] RBC Auto (Bld) [#/Vol]Ordere d By: Nicolle Lagos on 04-28-2025 RBC (Bld) [#/Vol] 4.40 10*6/uL 4.2-5.4 [facility] Syphilis Antibodieson 2024 Syphilis Abs Non-Reactive Normal Nonreactive [facility] Comment on above: Performed By: #### L 3890.6301, L509.4006, BTS, L3890.6006, L100.0100, L509.8002, L3890.6102 ####[facility] [address] [place], [address] Type AND Screenon 04-28-2025 Ab SCREEN GEL Negative Normal [facility] Comment on above: Order Comment: PN Performed By: #### L 3890.6301, L509.4006, BTS, L3890.6006, L100.0100, L509.8002, L3890.6102 #### [facility] [address] [place], [address] Urine cultureOrdered By: Jojo Lagos on 04-28-2025 Bacteria identified Cx Nom (U) Mixed Gram Pos & Gram Neg Org Abnormal [facility] White blood cell (WBC) count Ordered By: Nicolle Lagos on 04-28-2025 WBC (Bld) [#/Vol] 6.4 10*3/uL 4.4-11.0 [facility] CNOVon 04-16-2025 CNOV Office Visit (FAMPWS) KIM LOTT ([id number]) 1995 F Date Time Provider Department 04/16/25 8:00 AM LULI PLUMMER FAMPWS During your visit today, we recorded the following information about you: Pulse Blood pressure Weight 87/minute 102/56 62.6 kg Luli Plummer APRN.FRENCH PROFESSOR 04/16/2025 8:25 AM Signed This is a 29 year old female who presents today with: Patient presents with: Mass: Swollen lymph node on left side of neck for 3-4 weeks HISTORY OF PRESENT ILLNESS: Kim Lott is a 29 year old female. Patient presents with: Mass: Swollen lymph node on left side of neck for 3-4 weeks The patient is a 29-year-old female presenting for evaluation of a 3 to 4-week history of right cervical lymphadenopathy. Swollen Lymph Node: - Kim Lott noticed a swollen lymph node on the neck 3-4 weeks ago. - No change in size; not resolving. - Mild tenderness with repeated palpation. - Kim denies additional lumps, bumps, or swelling in the neck. - Kim denies fever, chills, headaches, changes in hearing or vision, dyspnea, cough, wheezing, chest pain, leg swelling, palpitations, dysuria, hematuria, joint pain, excessive thirst, syncope, seizures, tremors, or suicidal ideation. - Recent increase in nasal congestion over the past week. - Recent episode of poison derek 2 weeks ago. - Kim is unsure about recent weight changes. - Currently ; experiencing nausea. PAST MEDICAL HISTORY: PAST MEDICAL HISTORY Diagnosis Date Cervical high risk HPV (human papillomavirus) test positive 2017 PAST SURGICAL HISTORY Procedure Laterality Date APPENDECTOMY HX 2003 SNGL 02/19/2024 DANDC SUCTION 03/05/2023 missed ab VAGINOSCOPY 2017 ALLERGIES Pollen Extracts MEDICATIONS No current outpatient medications on file. No current facility-administere d medications for this visit. FAMILY HISTORY Problem Relation Age of Onset Hypothyroidism Mother No Known Problems Father No Known Problems Brother No Known Problems Brother Cancer Maternal Grandfather SOCIAL HISTORY[1] REVIEW OF SYSTEMS Constitutional: (-) fever, (-) chills Head: (-) headaches Eyes: (-) vision changes Ears/Nose/Mouth/Thro at: (+) rhinorrhea, (-) hearing loss, (-) ear pain, (-) sore throat Cardiovascular: (-) chest pain, (-) palpitations, (-) leg edema, (-) orthopnea Respiratory: (-) dyspnea, (-) cough, (-) wheezing Gastrointestinal: (+) nausea, (-) vomiting Genitourinary: (-) dysuria, (-) hematuria Musculoskeletal: (-) joint pain, (-) joint swelling Hematologic/Lymphati c: (+) cervical lymphadenopathy, (+) cervical lymph node tenderness EXAM: BP 102/56 Pulse 87 Wt 62.6 kg (138 lb) LMP 05/30/2023 (Approximate) SpO2 100% BMI 21.61 kg/m? PHYSICAL EXAM: GENERAL: NAD, alert and oriented. SKIN: Unremarkable, no rash or skin lesions. HEAD: Normocephalic. EARS: External ears normal, canals clear, TM's normal. NOSE/SINUSES: Nares pink and smooth- boggy. Septum midline. No sinus tenderness. OROPHARYNX: Lips, mucosa, and tongue normal, good dentition. No oral lesions noted. NECK: Supple, left side of neck just below ear lobe- small bllueberry sized lymphadenopathy, normal thyroid, no carotid bruits. Palpable lymph node noted, approximately the size of a small blueberry, firm but not enlarged. LUNGS: Clear to auscultation bilaterally, no wheezes/rhonchi/rale s. HEART: Regular rate and rhythm, no murmurs. No ectopy. EXTREMITIES: Normal, no deformities, no skin discoloration, no edema. NEURO: Awake, alert and oriented x3, cranial nerves II-XII grossly intact, normal gait, no involuntary motions. LABS: ASSESSMENT/PLAN: 1. Enlarged lymph node in neck (R59.0) - Single, firm, non-tender cervical lymph node present for 3-4 weeks; no associated fever, chills, or systemic symptoms. - Start amoxicillin PO TID for 10 days. - Use plain saline nasal spray at least TID while on antibiotics. - Educated on lymph node function, rationale for antibiotics, and typical benign etiology; discussed rare possibility of more serious causes. - Follow-up in 10 days; if lymph node persists, will order ultrasound. Discussed treatment plan and patient voices understanding. Patient's questions answered appropriately. Medications and potential side effects were discussed and patient voices understanding. Return to the office as scheduled or as needed for worsening/no improvement. Luli Plummer APRN.FRENCH PROFESSOR [1] Social History Tobacco Use Smoking status: Never Smokeless tobacco: Never Vaping Use Vaping status: Never Used Substance Use Topics Alcohol use: Yes Comment: occasional Drug use: Never Luli Plummer APRN.FRENCH PROFESSOR 04/16/2025 8:24 AM Signed - Take amoxicillin by mouth three times a day for 10 days; this antibiotic is safe during . - Use plain salin (more content not included)... Normal [facility] Transvaginal w/Preg on Transvaginal w/Preg [facility] Imaging Services [address] [place] [address] Transvaginal w/Preg US MR#: [id number] Acct: [id number] Name: KIM LOTT Rep #: [id number] : 1995 F 29 From: Adan luque MD PCP: Dr. Boston Lopez MD Status: REG CLI Study: Transvaginal w/Preg US Date of Exam: 04/13/25 Exam# [id number] Ordering Dr: Kari Vanegas PROCEDURE: TRANSVAGINAL W/PREG US 04/13/2025 REASON FOR EXAM: VIABILITY TECHNIQUE: Procedure Code: USTVAGP Modality: US Procedure: TRANSVAGINAL W/PREG US COMPARISON: Prior study dated April 01, 2025. FINDINGS: Comments: LMP is unknown. Number of Gestational Sacs: 1 Gestational Sac Shape: Normal Number of Fetuses: 1 Heart Rate: 152 beats per minute (average) Yolk Sac: Present and unremarkable. Placenta: Presently not well-visualized Amniotic Fluid Volume: Subjectively normal for gestational age. Uterine Abnormalities: Maternal uterus is unremarkable. Ovaries / Adnexa: Both maternal ovaries are visualized and unremarkable. DIMENSIONS: Parameter Measurement / EGA [place]ander Rump Length: 9 mm/7 weeks and 0 days Gestational Sac: 1.5 cm/6 weeks and 2 days Yolk Sac: 4 mm/ ESTIMATED GESTATIONAL AGE: By Ultrasound: 6 weeks and 5 days ESTIMATED DATE OF DELIVERY: By Ultrasound: December 02, 2025 US/Transvaginal w/Preg US IMPRESSION: Single live intrauterine gestation with mean gestational age of 6 weeks and 5 days. Reading Location: [facility] CC: Dr. Kari Vanegas MD; Dr. Boston Lopez MD Seasonal Warehouse Associate: Signed Normal [facility] Transvaginal w/Preg USon Transvaginal w/Preg US [facility] Imaging Services [address] [place] [address] Transvaginal w/Preg US MR#: [id number] Acct: [id number] Name: KIM LOTT Rep #: [id number] : 1995 F 29 From: Adan luque MD PCP: Dr. Boston Lopez MD Status: REG CLI Study: Transvaginal w/Preg US Date of Exam: 04/01/25 Exam# [id number] Ordering Dr: Kari Vanegas PROCEDURE: TRANSVAGINAL W/PREG US 04/01/2025 REASON FOR EXAM: DATING TECHNIQUE: Procedure Code: USTVAGP Modality: US Procedure: TRANSVAGINAL W/PREG US COMPARISON: None FINDINGS: Comments: LMP: Unknown Number of Gestational Sacs: 1 Gestational Sac Shape: The gestational sac is seen within the left horn of a bicornuate uterus. Number of Fetuses: 1 Heart Rate: Not visualized. ( Yolk Sac: Not visualized Placenta: Presently not well-visualized Uterine Abnormalities: The uterus measures 8.5 cm 7 cm 4.3 cm. It is bicornuate. Ovaries / Adnexa: Both maternal ovaries are visualized and unremarkable. DIMENSIONS: Parameter Measurement / EGA Gestational Sac: 9.3 mm/5 weeks and 5 days Yolk Sac: Not visualized/ ESTIMATED GESTATIONAL AGE: By Ultrasound: 5 weeks and 5 days ESTIMATED DATE OF DELIVERY: By Ultrasound: November 27, 2025 US/Transvaginal w/Preg US IMPRESSION: Single intrauterine gestational sac within the left horn of the bicornuate uterus. Gestational age of 5 weeks and 5 days. No yolk sac or embryo seen at this time. Serial beta HCG correlation as well as repeat sonogram recommended. Reading Location: [facility] CC: Dr. Kari Vanegas MD; Dr. Boston Lopez MD Seasonal Warehouse Associate: Signed Normal [facility] Serum human chorionic gonado tropin detection for pregnancyOrdered By: Kari Vanegas on 03-22-2025 HCG ( test) Ql 280 mIU/mL High <9 [facility] Comment on above: Gestational Age0.2-1 Week: 5-50 mIU/mL1-2 Weeks: 50-500 mIU/mL2-3 Weeks: 100-5000 mIU/mL3-4 Weeks: 500-10,000 mIU/mL4-5 Weeks:1000-50,000 mIU/mL5-6 Weeks: 10,000-100,000 mIU/mL6-8 Weeks: 15,000-200,000 mIU/mL2-3 Months:10,000-100,000 mIU/mL hCG Titer Quant., Serumon HCG QUANT. 280 mIU/mL High <9 non-preg [facility] Comment on above: Result Comment: Gest ational Age 0.2-1 Week: 5-50 mIU/mL 1-2 Weeks: 50-500 mIU/mL 2-3 Weeks: 100-5000 mIU/mL 3-4 Weeks: 500-10,000 mIU/mL 4-5 Weeks:1000-50,000 mIU/mL 5-6 Weeks: 10,000-100,000 mIU/mL 6-8 Weeks: 15,000-200,000 mIU/mL 2-3 Months:10,000-100,000 mIU/mL Performed By: #### L 700.8000 ####[facility] [address] [place], [address] Serum human chorionic gonado tropin detection for pregnancyOrdered By: Kari Vanegas on 03-20-2025 HCG ( test) Ql 76 mIU/mL High <9 [facility] Comment on above: Gestational Age0.2-1 Week: 5-50 mIU/mL1-2 Weeks: 50-500 mIU/mL2-3 Weeks: 100-5000 mIU/mL3-4 Weeks: 500-10,000 mIU/mL4-5 Weeks:1000-50,000 mIU/mL5-6 Weeks: 10,000-100,000 mIU/mL6-8 Weeks: 15,000-200,000 mIU/mL2-3 Months:10,000-100,000 mIU/mL hCG Titer Quant., Serumon HCG QUANT. 76 mIU/mL High <9 non-preg [facility] Comment on above: Result Comment: Gest ational Age 0.2-1 Week: 5-50 mIU/mL 1-2 Weeks: 50-500 mIU/mL 2-3 Weeks: 100-5000 mIU/mL 3-4 Weeks: 500-10,000 mIU/mL 4-5 Weeks:1000-50,000 mIU/mL 5-6 Weeks: 10,000-100,000 mIU/mL 6-8 Weeks: 15,000-200,000 mIU/mL 2-3 Months:10,000-100,000 mIU/mL Performed By: #### L 700.8000 ####[facility] [address] [place], [address] ECHOon 09-15-2024 Echocardiography Echocardiography Report: Transthoracic Echo [facility] Date of service: 09/15/2024 7:50:41 AM SAFETY INSPECTOR Ordering physician: BOSTON LOPEZ Indication: Chest Pain Technologist: Miriam Marin [facility] Interpreting physician: Matthew Whitehead MD PATIENT: [...] * * Final * * * CC [facility] : [id number] DynamicsSISUID Normal [facility] CBC W Auto Differential pane l (Bld)on 08-27-2024 Basophils (Bld) [#/Vol] 0.03 10*3/uL [facility] Comment on above: Differential confirm ed by visual scan of peripheral blood smear slide. Basophils/100 WBC (Bld) 0.5 % [facility] Differential cell count method Nom (Bld) Auto [facility] Eosinophils (Bld) [#/Vol] 0.08 10*3/uL [facility] Eosinophils/100 WBC (Bld) 1.3 % [facility] Erythrocyte distribution width (RBC) [Ratio] 12.3 % 11.5 - 15.0 % [facility] Hematocrit (Bld) [Volume fraction] 41.3 % 36.0 - 46.0 % [facility] Hemoglobin (Bld) [Mass/Vol] 13.2 g/dL 11.5 - 15.5 g/dL [facility] Immature granulocytes (Bld) [#/Vol] [facility] Immature granulocytes/100 WBC (Bld) 0.2 % [facility] Lymphocytes (Bld) [#/Vol] 2.22 10*3/uL [facility] Lymphocytes/100 WBC (Bld) 36.7 % [facility] MCH (RBC) [Entitic mass] 29.1 pg 26. 0 - 34.0 pg [facility] MCHC (RBC) [Mass/Vol] 32.0 g/dL 30.5 - 36.0 g/dL [facility] MCV (RBC) [Entitic vol] 91.0 fL 80.0 - 100.0 fL [facility] Monocytes (Bld) [#/Vol] 0.64 10*3/uL [facility] Monocytes/100 WBC (Bld) 10.6 % [facility] Neutrophils (Bld) [#/Vol] 3.07 10*3/uL [facility] Neutrophils/100 WBC (Bld) 50.7 % [facility] Nucleated RBC (Bld) [#/Vol] [facility] Nucleated RBC/100 WBC (Bld) [Ratio] [facility] Platelet mean volume (Bld) [Entitic vol] 9.8 fL 9.0 - 12.7 fL [facility] Platelets (Bld) [#/Vol] 278 10*3/uL [facility] Platelets Estimate (Bld) [#/Vol] Adequate [facility] RBC (Bld) [#/Vol] 4.54 10*6/uL 3.90 - 5.2 0 m/uL [facility] Red Cell Morph Reviewed: normal [facility] WBC (Bld) [#/Vol] 6.05 10*3/uL [facility] This is an appended report. These results have been appended to a previously verified report. [facility] Basophils (Bld) [#/Vol] 0.03 10*3/uL Normal <0.11 [facility] Comment on above: Order Comment: Speci men Type: BLOOD SPECIMEN Ordering Facility: [facility] Address: [address] [place] [address] Result Comment: Diff erential confirmed by visual scan of peripheral blood smear slide. Performed By: #### 5 7021-8 #### [facility] CLIA [id number] [address] [place] [address] [place] Basophils/100 WBC (Bld) 0.5 % Normal [facility] Comment on above: Order Comment: Speci men Type: BLOOD SPECIMEN Ordering Facility: [facility] Address: [address] [place] [address] Performed By: #### 5 7021-8 #### [facility] CLIA [id number] [address] [place], [place] [id number] [place] Differential cell count method Nom (Bld) Auto Normal [facility] Comment on above: Order Comment: Speci men Type: BLOOD SPECIMEN Ordering Facility: [facility] Address: [address] [place] [address] Performed By: #### 5 7021-8 #### [facility] CLIA [id number] [address] [place] [id number] [place] Eosinophils (Bld) [#/Vol] 0.08 10*3/uL Normal <0.46 [facility] Comment on above: Order Comment: Speci men Type: BLOOD SPECIMEN Ordering Facility: [facility] Address: [address] [place] [address] Performed By: #### 5 7021-8 #### [facility] CLIA [id number] [address] [place] [address] [place] Eosinophils/100 WBC (Bld) 1.3 % Normal [facility] Comment on above: Order Comment: Speci men Type: BLOOD SPECIMEN Ordering Facility: [facility] Address: [address] [place] [address] Performed By: #### 5 7021-8 #### [facility] CLIA [id number] [address] [place] [address] [place] Erythrocyte distribution width (RBC) [Ratio] 12.3 % Normal 11.5-15.0 [facility] Comment on above: Order Comment: Speci men Type: BLOOD SPECIMEN Ordering Facility: [facility] Address: [address] [place] [address] Performed By: #### 5 7021-8 #### [facility] CLIA [id number] [address] [place] [address] [place] Hematocrit (Bld) [Volume fraction] 41.3 % Normal 36.0-46.0 [facility] Comment on above: Order Comment: Speci men Type: BLOOD SPECIMEN Ordering Facility: [facility] Address: [address] [place] [address] Performed By: #### 5 7021-8 #### [facility] CLIA [id number] [address] [place] [address] [place] Hemoglobin (Bld) [Mass/Vol] 13.2 g/dL Normal 11.5-15.5 [facility] Comment on above: Order Comment: Speci men Type: BLOOD SPECIMEN Ordering Facility: [facility] Address: [address] [place] [address] Performed By: #### 5 7021-8 #### [facility] CLIA [id number] [address] [place] [address] [place] Immature granulocytes (Bld) [#/Vol] 10*3/uL Normal <0.10 [facility] Comment on above: Order Comment: Speci men Type: BLOOD SPECIMEN Ordering Facility: [facility] Address: [address] [place] [address] Performed By: #### 5 7021-8 #### [facility] CLIA [id number] [address] [place] [address] [facility] Immature granulocytes/100 WBC (Bld) 0.2 % Normal [facility] Comment on above: Order Comment: Speci men Type: BLOOD SPECIMEN Ordering Facility: [facility] Address: [address] [place] [address] Performed By: #### 5 7021-8 #### [facility] CLIA [id number] [address] [place] [address] [place] Lymphocytes (Bld) [#/Vol] 2.22 10*3/uL Normal 1.00-4.00 [facility] Comment on above: Order Comment: Speci men Type: BLOOD SPECIMEN Ordering Facility: [facility] Address: [address] [place] [address] Performed By: #### 5 7021-8 #### [facility] CLIA [id number] [address] [place] [facility] Lymphocytes/100 WBC (Bld) 36.7 % Normal [facility] Comment on above: Order Comment: Speci men Type: BLOOD SPECIMEN Ordering Facility: [facility] Address: [address] [place] [address] Performed By: #### 5 7021-8 #### [facility] CLIA [id number] [address] [place] [address] [place] MCH (RBC) [Entitic mass] 29.1 pg Normal 26.0-34.0 [facility] Comment on above: Order Comment: Speci men Type: BLOOD SPECIMEN Ordering Facility: [facility] Address: [address] [place] [address] Performed By: #### 5 7021-8 #### [facility] CLIA [id number] [address] [place] [id number] [place] MCHC (RBC) [Mass/Vol] 32.0 g/dL Normal 30.5-36.0 [facility] Comment on above: Order Comment: Speci men Type: BLOOD SPECIMEN Ordering Facility: [facility] Address: [address] [place] [address] Performed By: #### 5 7021-8 #### [facility] CLIA [id number] [address] [place] [address] [place] MCV (RBC) [Entitic vol] 91.0 fL Normal 80.0-100.[address] [facility] Comment on above: Order Comment: Speci men Type: BLOOD SPECIMEN Ordering Facility: [facility] Address: [address] [place] [address] Performed By: #### 5 7021-8 #### [facility] CLIA [id number] [address] [place] [address] [place] Monocytes (Bld) [#/Vol] 0.64 10*3/uL Normal <0.87 [facility] Comment on above: Order Comment: Speci men Type: BLOOD SPECIMEN Ordering Facility: [facility] Address: [address] [place] [address] Performed By: #### 5 7021-8 #### [facility] CLIA [id number] [address] [place] [address] [place] Monocytes/100 WBC (Bld) 10.6 % Normal C [facility] Comment on above: Order Comment: Speci men Type: BLOOD SPECIMEN Ordering Facility: [facility] Address: [address] [place] [address] Performed By: #### 5 7021-8 #### [facility] CLIA [id number] [address] [place] [address] [place] Neutrophils (Bld) [#/Vol] 3.07 10*3/uL Normal 1.45-7.50 [facility] Comment on above: Order Comment: Speci men Type: BLOOD SPECIMEN Ordering Facility: [facility] Address: [address] [place] [address] Performed By: #### 5 7021-8 #### [facility] CLIA [id number] [address] [place] [address] [place] Neutrophils/100 WBC (Bld) 50.7 % Normal [facility] Comment on above: Order Comment: Speci men Type: BLOOD SPECIMEN Ordering Facility: [facility] Address: [address] [place] [address] Performed By: #### 5 7021-8 #### [facility] CLIA [id number] [address] [place] [address] [place] Nucleated RBC (Bld) [#/Vol] Normal [facility] Comment on above: Order Comment: Speci men Type: BLOOD SPECIMEN Ordering Facility: [facility] Address: [address] [place] [address] Performed By: #### 5 7021-8 #### [facility] CLIA [id number] [address] [place] [address] [place] Nucleated RBC/100 WBC (Bld) [Ratio] Normal [facility] Comment on above: Order Comment: Speci men Type: BLOOD SPECIMEN Ordering Facility: [facility] Address: [address] [place] [address] Performed By: #### 5 7021-8 #### [facility] CLIA [id number] [address] [place] [address] [place] Platelet mean volume (Bld) [Entitic vol] 9.8 fL Normal 9.0-12.7 [facility] Comment on above: Order Comment: Speci men Type: BLOOD SPECIMEN Ordering Facility: [facility] Address: [address] [place] [address] Performed By: #### 5 7021-8 #### [facility] CLIA [id number] [address] [place] [address] [place] Platelets (Bld) [#/Vol] 278 10*3/uL Normal 150-400 [facility] Comment on above: Order Comment: Speci men Type: BLOOD SPECIMEN Ordering Facility: [facility] Address: [address] [place], [place] [address] Performed By: #### 5 7021-8 #### [facility] CLIA [id number] [address] [place] [address] [place] Platelets Estimate (Bld) [#/Vol] Adequate Normal [facility] Comment on above: Order Comment: Speci men Type: BLOOD SPECIMEN Ordering Facility: [facility] Address: [address] [place] [address] Performed By: #### 5 7021-8 #### [facility] CLIA [id number] [address] [place] [address] [place] RBC (Bld) [#/Vol] 4.54 10*6/uL Normal 3.90-5.20 [facility] Comment on above: Order Comment: Speci men Type: BLOOD SPECIMEN Ordering Facility: [facility] Address: [address] [place] [address] Performed By: #### 5 7021-8 #### [facility] CLIA [id number] [address] [place] [address] [place] RED CELL MORPH Reviewed: normal Normal [facility] Comment on above: Order Comment: Speci men Type: BLOOD SPECIMEN Ordering Facility: [facility] Address: [address] [place] [address] Performed By: #### 5 7021-8 #### [facility] CLIA [id number] [address] [place] [address] [place] WBC (Bld) [#/Vol] 6.05 10*3/uL Normal 3.70-11.00 [facility] Comment on above: Order Comment: Speci men Type: BLOOD SPECIMEN Ordering Facility: [facility] Address: [address] [place] [address] Performed By: #### 5 7021-8 #### [facility] CLIA [id number] [address] [place] [address] [facility] [place] CNOVon 08-27-2024 [facility]IM [facility] ([id number]) 1995 F Date Time Provider Department 08/27/24 1:00 PM BOSTON LOPEZ During your visit today, we recorded the [...] of breath. Mentions back in 2018 or 2018 had odd sensations in her chest where [...] No history of dysuria, frequency or incontinence COLOR DEVELOPER: Negative for abnormal vaginal bleeding, abnormal vaginal [...] or cy (more content not included)... Normal [facility] Comprehensive metabolic 2000 panelon 08-27-2024 Albumin [Mass/Vol] 4.6 g/dL 3.9 - 4.9 g/dL [facility] ALP [Catalytic activity/Vol] 96 U/L 34 - 123 U/L [facility] ALT With P-5'-P [Catalytic activity/Vol] 6 U/L Low 7 - 38 U/L [facility] Anion gap [Moles/Vol] 9 mmol/L 8 - 15 mmol/L [facility] AST With P-5'-P [Catalytic activity/Vol] 14 U/L 13 - 35 U/L [facility] Bilirubin [Mass/Vol] 0.3 mg/dL 0.2 - 1 .3 mg/dL [facility] Calcium [Mass/Vol] 9.7 mg/dL 8.5 - 10. 2 mg/dL [facility] Chloride [Moles/Vol] 101 mmol/L 98 - 10 7 mmol/L [facility] CO2 [Moles/Vol] 29 mmol/L 22 - 30 mmol/L [facility] Creatinine [Mass/Vol] 0.80 mg/dL 0.58 - 0.96 mg/dL [facility] GFR/1.73 sq M.predicted among non-blacks MDRD (S/P/Bld) [Vol rate/Area] 102 mL/min/{1.73_m2} - PINF [facility] Comment on above: Estimated Glomerular Filtration Rate [...] [Mass/Vol] 95 mg/dL 74 - 99 mg/dL [facility] Comment on above: The [place] Diabete s Association (ADA) provides guidance for [...] Standards of Medical Care in Diabetes 2016, [place] Diabetes Association. Diabetes Care. 2016.39(Suppl 1). Interpretation and review of laboratory results Abnormal [facility] Potassium [Moles/Vol] 4.2 mmol/L 3.7 - 5.1 mmol/L [facility] Protein [Mass/Vol] 7.5 g/dL 6.3 - 8.0 g/dL [facility] Sodium [Moles/Vol] 139 mmol/L 136 - 144 mmol/L [facility] Urea nitrogen [Mass/Vol] 14 mg/dL 7 - 21 mg/d L [facility] Albumin [Mass/Vol] 4.6 g/dL Normal 3.9-4.9 [facility] Comment on above: Order Comment: Nevaeh graves Type: BLOOD SPECIMEN Ordering Facility: [facility] Address: [address] [place] [address] Performed By: #### 5 7021-8 #### [email or web address] CLIA [id number] [address] [place] [address] OF [facility] ALP [Catalytic activity/Vol] 96 U/L Normal 34-123 [facility] Comment on above: Order Comment: Nevaeh graves Type: BLOOD SPECIMEN Ordering Facility: [facility] Address: [address] [place] [address] Performed By: #### 5 7021-8 #### [facility] CLIA [id number] [address] [facility] [place] [address] [place] ALT With P-5'-P [Catalytic activity/Vol] 6 U/L Low 7-38 [facility] Comment on above: Order Comment: Speci men Type: BLOOD SPECIMEN Ordering Facility: [facility] Address: [address] [place] [address] Performed By: #### 5 7021-8 #### [facility] CLIA [id number] [address] [facility] [place] [address] [place] Anion gap [Moles/Vol] 9 mmol/L Normal 8-15 [facility] Comment on above: Order Comment: Speci men Type: BLOOD SPECIMEN Ordering Facility: [facility] Address: [address] [place] [address] Performed By: #### 5 7021-8 #### [facility] CLIA [id number] [address] [place] [address] [place] AST With P-5'-P [Catalytic activity/Vol] 14 U/L Normal 13-35 [facility] Comment on above: Order Comment: Speci men Type: BLOOD SPECIMEN Ordering Facility: [facility] Address: [address] [place] [address] Performed By: #### 5 7021-8 #### [facility] CLIA [id number] [address] [place] [address] [place] Bilirubin [Mass/Vol] 0.3 mg/dL Normal 0.2-1.3 [facility] Comment on above: Order Comment: Speci men Type: BLOOD SPECIMEN Ordering Facility: [facility] Address: [address] [place] [address] Performed By: #### 5 7021-8 #### [facility] CLIA [id number] [address] [place] [address] [place] Calcium [Mass/Vol] 9.7 mg/dL Normal 8.5-10.2 [facility] Comment on above: Order Comment: Speci men Type: BLOOD SPECIMEN Ordering Facility: [facility] Address: [address] [place] [address] Performed By: #### 5 7021-8 #### [facility] CLIA [id number] [address] [place] [address] [place] Chloride [Moles/Vol] 101 mmol/L Normal 98-107 [facility] Comment on above: Order Comment: Speci men Type: BLOOD SPECIMEN Ordering Facility: [facility] Address: [address] [place] [address] Performed By: #### 5 7021-8 #### [facility] CLIA [id number] [address] [place] [address] [place] CO2 [Moles/Vol] 29 mmol/L Normal 22-30 [facility] Comment on above: Order Comment: Speci men Type: BLOOD SPECIMEN Ordering Facility: [facility] Address: [address] [place] [address] Performed By: #### 5 7021-8 #### [facility] CLIA [id number] [address] [place] [address] [place] Creatinine [Mass/Vol] 0.80 mg/dL Normal 0.58-0.96 [facility] Comment on above: Order Comment: Speci men Type: BLOOD SPECIMEN Ordering Facility: [facility] Address: [address] [place] [address] Performed By: #### 5 7021-8 #### [facility] CLIA [id number] [address] [place] [address] [facility] [place] Creatinine and Glomerular filtration rate.predicted panel (S/P/Bld) 102 mL/min/1.73m??? Normal >=60 [facility] Comment on above: Order Comment: Speci men Type: BLOOD SPECIMEN Ordering Facility: [facility] Address: [address] [place] [address] Result Comment: Juana mated Glomerular Filtration Rate [...] accurately reflect actual GFR. Performed By: #### 5 7021-8 #### [facility] CLIA [id number] [address] [place] [address] [place] Glucose [Mass/Vol] 95 mg/dL Normal 74-99 [facility] Comment on above: Order Comment: Nevaeh graves Type: BLOOD SPECIMEN Ordering Facility: [facility] Address: [address] [address] Result Comment: The [place] Diabetes Association (ADA) provides guidance for cutoff [...] Standards of Medical Care in Diabetes 2016, [place] Diabetes Association. Diabetes Care. 2016.39(Suppl 1). Performed By: #### 5 7021-8 #### [facility] CLIA [id number] [address] [place] [address] [place] Potassium [Moles/Vol] 4.2 mmol/L Normal 3.7-5.1 [facility] Comment on above: Order Comment: Nevaeh graves Type: BLOOD SPECIMEN Ordering Facility: [facility] Address: [address] [place] [address] Performed By: #### 5 7021-8 #### [facility] CLIA [id number] [address] [place] [address] [place] Protein [Mass/Vol] 7.5 g/dL Normal 6.3-8.0 [facility] Comment on above: Order Comment: Nevaeh graves Type: BLOOD SPECIMEN Ordering Facility: [facility] Address: [address] [place] [address] Performed By: #### 5 7021-8 #### [facility] CLIA [id number] [address] [place] [address] [place] Sodium [Moles/Vol] 139 mmol/L Normal 136-144 [facility] Comment on above: Order Comment: Speci men Type: BLOOD SPECIMEN Ordering Facility: [facility] Address: [address] [place] [address] Performed By: #### 5 7021-8 #### [facility] CLIA [id number] [address] [place] [address] [place] Urea nitrogen [Mass/Vol] 14 mg/dL Normal 7-21 [facility] Comment on above: Order Comment: Speci men Type: BLOOD SPECIMEN Ordering Facility: [facility] Address: [address] [place] [address] Performed By: #### 5 7021-8 #### [facility] CLIA [id number] [address] [place], [place] [id number] [place] D dimer FEU PPP-mCncon 08-27 Fibrin D-dimer FEU (PPP) [Mass/Vol] <190 Normal <500 [facility] Comment on above: Order Comment: Speci men Type: BLOOD SPECIMEN Ordering Facility: [facility] Address: [address] [place] [address] Performed By: #### 4 8065-7 #### [facility] CLIA [id number] [address] [place] [address] [place] D-DIMEROrdered By: Dai Amador on 08-27-2024 Fibrin D-dimer FEU (PPP) [Mass/Vol] NINF [facility] ECG COMPLETEon 08-27-2024 ECG COMPLETE Ventricular Rate : 77 BPM Atrial Rate : 77 BPM P-R Interval : 154 ms QRS Duration : 76 ms Q-T Interval : 398 ms QTC Calculation(Bazett) : 450 ms Calculated P Manati : 50 degrees Calculated R Manati : 68 degrees Calculated T Manati : 36 degrees NORMAL SINUS RHYTHM NORMAL ECG Confirmed by HERNANDOMD NAGY QARAB ([id number]) on 08/28/2024 9:46:53 AM NAME : KIM LOTT PID : [id number] : 1995 Gender : Female Race : ORD : [id number] Procedure Date : Aug 27 2024 13:15:04 Edit Date : Aug 28 2024 09:46:54 Diagnosis: NORMAL SINUS RHYTHM NORMAL ECG Confirmed by MD VILLAGOMEZ QARAB ([id number]) on 08/28/2024 9:46:53 AM Test Reason : R07.9 Chest pain, unspecified type Location : 185 : [facility] Overread By : MD VILLAGOMEZ QARAB Edited By : MD VILLAGOMEZ QARAB Referred By : , Acquired by : Valentine Brooks [facility] Fibrin D-dimer FEU (PPP) [Ma ss/Vol]Ordered By: Dai Amador on 08-27-2024 Interpretation and review of laboratory results Normal [facility] 500 ng/mL FEU is the D Dimer [...] et al. Adele Int Med 2016 165:253. [facility] LIPID PANEL, NONFASTINGon Cholesterol [Mass/Vol] 165 mg/dL NINF - 200 mg/dL [facility] Comment on above: <200 mg/dL, Desirabl e 200-239 mg/dL, Borderline high >239 mg/dL, High HDL Cholesterol, Nonfasting 69 mg/dL 39 - PINF mg/dL [facility] Comment on above: 40-59 mg/dL, Accepta ble >59 mg/dL, High: Negative risk factor for coronary heart disease <40 mg/dL, Low: Positive risk factor for coronary heart disease LDL Cholesterol, Nonfasting 78 mg/dL NINF - 100 mg/dL [facility] Comment on above: <100 mg/dL, Optimal 100-129 mg/dL, Near optimal/above optimal 130-159 mg/dL, Borderline high 160-189 mg/dL, High >189 mg/dL, Very high Secondary prevention optimal LDL Cholesterol levels are recommended to be < 70 mg/dL LDL/HDL Ratio, Nonfasting 1.13 mg/dL NINF - 2.54 mg/dL [facility] Comment on above: Reference: 1. National Cholesterol Education Program ATP III Guideline At-A-Glance Quick Desk Reference: National Heart, Lung, and Blood [place]. National Institutes of Health. 2001: NIH Publication No. 01-3305. 2. An International Atherosclerosis Society position paper: global recommendations for the management of dyslipidemia: executive summary, Atherosclerosis. 2014: 232(2):410-413. Non HDL Cholesterol, Nonfasting 96 mg/dL NINF - 130 mg/dL [facility] Comment on above: <130 mg/dL, Optimal 130-159 mg/dL, Near optimal/above optimal 160-189 mg/dL, Borderline high 190-219 mg/dL, High >219 mg/dL, Very high Secondary prevention optimal non HDL Cholesterol levels are recommended to be <100 mg/dL Total Chol/HDL Ratio, Nonfasting 2.39 mg/dL NINF - 5.10 mg/dL [facility] Triglycerides, Nonfasting 88 mg/dL NINF - 150 mg/dL [facility] Comment on above: <150 mg/dL, Normal 150-199 mg/dL, Borderline high 200-499 mg/dL, High >499 mg/dL, Very high VLDL Cholesterol, Nonfasting 18 mg/dL NINF - 30 mg/dL [facility] Cholesterol [Mass/Vol] 165 mg/dL Normal <[address] [facility] Comment on above: Order Comment: Speci men Type: BLOOD SPECIMEN Ordering Facility: [facility] Address: [address] [place] [address] Result Comment: <200 mg/dL, Desirable 200-239 mg/dL, Borderline high >239 mg/dL, High Performed By: #### 5 7021-8 #### [facility] CLIA [id number] [address] [place] [address] [facility] HDL CHOLESTEROL, NF 69 mg/dL Normal >39 [facility] Comment on above: Order Comment: Nevaeh graves Type: BLOOD SPECIMEN Ordering Facility: [facility] Address: [address] [place] [address] Result Comment: 40-5 9 mg/dL, Acceptable >59 mg/dL, High: Negative risk factor for coronary heart disease <40 mg/dL, Low: Positive risk factor for coronary heart disease Performed By: #### 5 7021-8 #### [facility] CLIA [id number] [address] LDL CHOLESTEROL, NF 78 mg/dL Normal <100 [facility] Comment on above: Order Comment: Nevaeh graves Type: BLOOD SPECIMEN Ordering Facility: [facility] Address: [address] [place] [address] Result Comment: <100 mg/dL, Optimal 100-129 mg/dL, Near optimal/above optimal 130-159 mg/dL, Borderline high 160-189 mg/dL, High >189 mg/dL, Very high Secondary prevention optimal LDL Cholesterol levels are recommended to be < 70 mg/dL Performed By: #### 5 7021-8 #### [facility] CLIA [id number] [address] [place] [address] LDL/HDL RATIO, NF 1.13 mg/dL Normal <2.54 [facility] Comment on above: Order Comment: Nevaeh ely Type: BLOOD SPECIMEN Ordering Facility: [facility] Address: [address] [place] [address] Result Comment: Adam sow: 1. National Cholesterol Education Program ATP III Guideline At-A-Glance Quick Desk Reference: National Heart, Lung, and Blood [place]. National Institutes of Health. 2001: NIH Publication No. 01-3305. 2. An International Atherosclerosis Society position paper: global recommendations for the management of dyslipidemia: executive summary, Atherosclerosis. 2014: 232(2):410-413. Performed By: #### 5 7021-8 #### [facility] CLIA [id number] [address] [place] [address] [place] NON HDL CHOL, NF 96 mg/dL Normal <130 [facility] Comment on above: Order Comment: Nevaeh graves Type: BLOOD SPECIMEN Ordering Facility: [facility] Address: [address] [place] [address] Result Comment: <130 mg/dL, Optimal 130-159 mg/dL, Near optimal/above optimal 160-189 mg/dL, Borderline high 190-219 mg/dL, High >219 mg/dL, Very high Secondary prevention optimal non HDL Cholesterol levels are recommended to be <100 mg/dL Performed By: #### 5 7021-8 #### [facility] CLIA [id number] [address] T CHOL/HDL RATIO NF 2.39 mg/dL Normal <5.10 [facility] Comment on above: Order Comment: Nevaeh graves Type: BLOOD SPECIMEN Ordering Facility: [facility] Address: [address] [place] [address] Performed By: #### 5 7021-8 #### [facility] CLIA [id number] [address] [place] [address] [facility] TRIGLYCERIDES, NF 88 mg/dL Normal <150 [facility] Comment on above: Order Comment: Nevaeh graves Type: BLOOD SPECIMEN Ordering Facility: [facility] Address: [address] [place] [address] Result Comment: <150 mg/dL, Normal 150-199 mg/dL, Borderline high 200-499 mg/dL, High >499 mg/dL, Very high Performed By: #### 5 7021-8 #### [facility] CLIA [id number] [address] [place] [address] [facility] VLDL CHOLESTEROL, NF 18 mg/dL Normal <30 [facility] Comment on above: Order Comment: Nevaeh graves Type: BLOOD SPECIMEN Ordering Facility: [facility] Address: [address] [place] [address] Performed By: #### 5 7021-8 #### [facility] CLIA [id number] [address] [place], [place] [id number] [facility] No Panel Informationon 08-27 Interpretation and review of laboratory results Normal [facility] THYROID STIMULATING HORMONEo n 08-27-2024 TSH Qn 0.797 m[IU]/L [facility] Comment on above: If the patient is pr egnant, TSH reference range varies by gestational period: First Trimester (weeks 9-12): 0.180-2.990 mIU/L Second Trimester: 0.110-3.980 mIU/L Third Trimester: 0.480-4.710 mIU/L Jose Alejandro Roberson, et al. A Practical Approach for the Verifications and Determination of Site- and Trimester-Specific Reference Intervals for Thyroid Function tests in . Thyroid, 2019:29:3:412-420. Fahad Gross, et al. 2017 Guidelines of the [place] Thyroid Association for the Diagnosis and Management of Thyroid Disease during and the . Thyroid, 2017:27:3:315-389. TSH SerPl-aCncon 08-27-2024 TSH Qn 0.797 m[IU]/L Normal 0.270-4.200 [facility] Comment on above: Order Comment: Nevaeh graves Type: BLOOD SPECIMEN Ordering Facility: [facility] Address: [address] [place] [address] Result Comment: If t he patient is , TSH reference range varies by gestational period: First Trimester (weeks 9-12): 0.180-2.990 mIU/L Second Trimester: 0.110-3.980 mIU/L Third Trimester: 0.480-4.710 mIU/L Jose Alejandro Roberson, et al. A Practical Approach for the Verifications and Determination of Site- and Trimester-Specific Reference Intervals for Thyroid Function tests in . Thyroid, 2019:29:3:412-420. Fahad Gross et al. 2017 Guidelines of the [place] Thyroid Association for the Diagnosis and Management of Thyroid Disease during and the . Thyroid, 2017:27:3:315-389. Performed By: #### 5 7021-8 #### [facility] CLIA [id number] [address] [place] [address] STATES OF [facility] XR CHEST 2V FRONTAL/LATon XR CHEST 2V [...] tissues: Unremarkable. IMPRESSION: No acute radiographic abnormality. Seasonal Warehouse Associate: APOLINAR Transcribe Date/Time: Aug 27 2024 1:53P Dictated by : HEATHER CROOK MD This examination was interpreted and the report reviewed and electronically signed by: HEATHER CROOK MD on Aug 27 2024 1:54PM EST [id number] CN Normal [facility] XR Chest PA and Lateralon Radiology Study observation (narrative) [facility] IMPRESSION: No acute radiographic abnormality. Seasonal Warehouse Associate: APOLINAR Transcribe Date/Time: Aug 27 2024 1:53P [...] soft tissues: Unremarkable. DIVISION OF RADIOLOGY Provider, [facility] [place] - 08/27/2024 * * *Final Report* * [...] Unremarkable. IMPRESSION IMPRESSION: No acute radiographic abnormality. Seasonal Warehouse Associate: PSCB Transcribe Date/Time: Aug 27 2024 1:53P Dictated by : HEATHER CROOK MD This examination was interpreted and the report reviewed and electronically signed by: HEATHER CROOK MD on Aug 27 2024 1:54PM [facility] XR Chest PA and LateralOrder ed By: [facility] Provider on 08-27-2024 [facility] CNOVon 06-05-2024 CNOV Office Visit ([facility]) KIM LOTT ([id number]) 1995 F Date Time Provider Department 06/05/24 1:20 PM JESICA JOHNSON INTMWS During your visit today, we recorded the following information about you: Temperature Pulse Respiration Blood pressure 100.3 degrees 109/minute 16/minute 101/64 Weight 75.6 kg Jesica Johnson APRN.ROW BOSS 06/05/2024 2:00 PM Signed SUBJECTIVE Kim Lott is a 29 year old female who presents with 2 days of symptoms that are worsening. She reports [facility] and advised she may have walking pneumonia. [...] complete if needed/not improving . Jesica Johnson APRN.ROW BOSS Medical Decision Making: Problems: Low: Acute, uncomplicated illness or injury Data: Unique test(s) ordered: 1 Risk: Moderate: Drug management Medical Decision Making Level: 3 - Low Allergies As of Date: 06/05/2024 Noted Allergy Reaction POLLEN EXTRACTS 04/30/2017 14 - Other: See Comments Date Reviewed: 06/05/2024 Reviewed by: Jesica Johnson APRN.ROW BOSS - Fully Assessed Reason for Visit: Cough [...] 30 EachRfl: 0 XR CHEST 2V FRONTAL/LAT [[id number]] Order #: [id number] FUTURE Prescriptions as of 06/05/2024 - acetaminophen [...] MDM 2 (more content not included)... Normal [facility] Absolute lymphocyte countOrd ered By: Nicolle Lagos on 12-03-2023 Lymphocytes Auto (Unsp spec) [#/Vol] 1.45 10*3/uL 0.83-4.51 [facility] Automated lymphocyte count a s percentage of total leukocytesOrdered By: Nicolle Lagos on 12-03-2023 Lymphocytes/100 WBC Auto (Unsp spec) 15.8 % 19-41 [facility] Basophil percentageOrdered B y: Nicolle Lagos on 12-03-2023 Basophils/100 WBC (Bld) 0.5 % 0-1 [facility] Eosinophils/100 WBC (Bld) 0.7 % 0-5 [facility] Hemoglobin (Bld) [Mass/Vol] 11.3 g/dL 12.0-15.0 [facility] Monocytes/100 WBC (Bld) 8.9 % 0-10 [facility] Neutrophils (Bld) [#/Vol] 6.7 10*3/uL 2.0-7.7 [facility] Neutrophils/100 WBC (Bld) 73.2 % 47-70 [facility] WBC (Bld) [#/Vol] 9.2 10*3/uL 4.4-11.0 [facility] Determination of erythrocyte mean corpuscular volume (MCV)Ordered By: Nicolle Lagos on 12-03-2023 MCV (RBC) [Entitic vol] 93.3 fL 81-99 [facility] Erythrocyte distribution wid th ratioOrdered By: Nicolle [...] 109 mg/dL 70-140 [facility] HIV 1 and HIV-2 antibody [...] indicates that a LEFT SHIFT is Present. Laboratory - Hematology and Cell countsOrdered By: Nicolle Lagos on 12-03-2023 MCH (RBC) [Entitic mass] 30.5 pg 27.0-32.0 [facility] MCHC (RBC) [Mass/Vol] 32.7 g/dL 32-36 [facility] Nucleated RBC/100 WBC (Bld) [Ratio] 0 % 0-5 [facility] Platelet mean volume (Bld) [Entitic vol] 8.6 fL 6.2-12.0 [facility] Platelets (Bld) [#/Vol] 230 10*3/uL 150-450 [facility] RBC Auto (Bld) [#/Vol]Ordere d By: Nicolle Lagos on 12-03-2023 RBC (Bld) [#/Vol] 3.71 10*6/uL 4.2-5.4 [facility] Serum Treponema species anti body [...] Ql (U) Negative [facility] Culture, urineOrdered By: Lupe Herrera on 09-21-2023 Bacteria identified Cx Nom (U) Culture exhibits no growth. [facility] Bacteria identified Cx Nom (U) Culture exhibits no growth. [facility] Gram stain for [...] Vaginitis (Rapid) Negative [facility] Laboratory - Chemistry and C hemistry - challengeon 09-12-2023 Glucose Ql (U) Negative [facility] Laboratory - Urinalysison Protein Ql (U) Negative [facility] Gram stain for [...] Vaginitis (Rapid) Negative [facility] Absolute lymphocyte countOrd ered By: Nicolle Martinez on 08-18-2023 Lymphocytes Auto (Unsp spec) [#/Vol] 1.73 10*3/uL 0.83-4.51 [facility] Automated lymphocyte count a s percentage of total leukocytesOrdered By: Nicolle Martinez on 08-18-2023 Lymphocytes/100 WBC Auto (Unsp spec) 24.7 % 19-41 [facility] Basophil percentageOrdered B y: Nicolle Martinez on 08-18-2023 Basophils/100 WBC (Bld) 0.6 % 0-1 [facility] Bilirubin [Mass/Vol] 0.40 mg/dL 0.20-1.00 [facility] Comment on above: For patients on eltr ombopag therapy, use of Dimension [place] TBIL is not recommended. Chloride [Moles/Vol] 105 mmol/L 98-107 [facility] Eosinophils/100 WBC (Bld) 1.4 % 0-5 [facility] Glucose [Mass/Vol] 104 mg/dL 74-106 [facility] Comment on above: Fasting Glucose resu lt from 100 to 125 mg/dL suggests IMPAIRED HOMEOSTASIS per A.D.A. criteria. Hemoglobin (Bld) [Mass/Vol] 12.0 g/dL 12.0-15.0 [facility] Monocytes/100 WBC (Bld) 9.8 % 0-10 [facility] Neutrophils (Bld) [#/Vol] 4.4 10*3/uL 2.0-7.7 [facility] Neutrophils/100 WBC (Bld) 63.2 % 47-70 [facility] Potassium [Moles/Vol] 3.6 mmol/L 3.5-5.1 [facility] Protein [Mass/Vol] 7.0 g/dL 6.4-8.2 [facility] Sodium [Moles/Vol] 136 mmol/L 136-145 [facility] WBC (Bld) [#/Vol] 7.0 10*3/uL 4.4-11.0 [facility] Basophil percentage 0-5 SEEN /hpf 0-5 [facility] Bilirubin Test strip Ql (U)O rdered By: Nicolle Martinez on 08-18-2023 Bilirubin Ql (U) Negative Negative [facility] Determination of erythrocyte mean corpuscular volume (MCV)Ordered By: Nicolle Martinez on 08-18-2023 MCV (RBC) [Entitic vol] 90.8 fL 81-99 [facility] Direct bilirubinOrdered By: Nicolle Martinez on 08-18-2023 Bilirubin.direct [Mass/Vol] 0.12 mg/dL 0.00-0.30 [facility] Erythrocyte distribution wid [...] Globulin (S) [Mass/Vol] 3.7 g/dL 2.2-4.2 [facility] Lipase [Catalytic activity/Vol] 41 U/L 13-75 [facility] MCHC (RBC) [Mass/Vol] 32.9 g/dL 32-36 [facility] Nucleated RBC/100 WBC (Bld) [Ratio] 0 % 0-5 [facility] Platelets (Bld) [#/Vol] 234 10*3/uL 150-450 [facility] Mucus LM Ql (Urine sed)Order ed By: Nicolle Martinez on 08-18-2023 Mucus Ql (Urine sed) RARE /hpf [facility] Nitrite Test strip Ql (U)Ord ered By: [...] 08-18-2023 RBC (Bld) [#/Vol] 4.02 10*6/uL 4.2-5.4 [facility] Serum or plasma calcium yobani urement (mass/volume)Ordered By: Nicolle Martinez on 08-18-2023 Calcium [Mass/Vol] 9.4 mg/dL 8.5-10.1 [facility] Serum or plasma creatinine m easurement (mass/volume)Ordered By: Nicolle Martinez on 08-18-2023 Creatinine [Mass/Vol] 0.53 mg/dL 0.55-1.02 [facility] Comment on above: The validity [...] screening 4 5-15 [facility] Urine blood detectionOrdered By: Nicolle Martinez on 08-18-2023 RBC Ql (U) 10 /ul Negative [facility] Urine clarityOrdered By: Jojo Martinez on 08-18-2023 Clarity (U) Clear Clear [facility] Urine color determinationOrd ered By: Nicolle Martinez on 08-18-2023 Color (U) Yellow Yellow [facility] [...] 08-18-2023 Urobilinogen Ql (U) Normal mg/dl Normal [facility] Absolute lymphocyte countOrd ered By: Roger Marshall on 08-02-2023 Lymphocytes Auto (Unsp spec) [#/Vol] 1.31 10*3/uL 0.83-4.51 [facility] Basophil percentageOrdered B y: Roger Marshall on 08-02-2023 Basophils/100 WBC (Bld) 0.3 % 0-1 [facility] Eosinophils/100 WBC (Bld) 0.6 % 0-5 [facility] Neutrophils (Bld) [#/Vol] 8.1 10*3/uL 2.0-7.7 [facility] Neutrophils/100 WBC (Bld) 76.7 % 47-70 [facility] WBC (Bld) [#/Vol] 10.6 10*3/uL 4.4-11.0 [facility] Blood erythrocytes count (nu mber/volume)Ordered By: Roger Marshall on 08-02-2023 RBC (Bld) [#/Vol] 3.95 10*6/uL 4.2-5.4 [facility] Blood hemoglobin measurement (mass/volume)Ordered By: Roger Marshall on 08-02-2023 Hemoglobin (Bld) [Mass/Vol] 11.9 g/dL 12.0-15.0 [facility] Blood lymphocytes/100 leukoc ytesOrdered By: Roger Marshall on 08-02-2023 Lymphocytes/100 WBC (Bld) 12.4 % 19-41 [facility] Blood monocytes/100 leukocyt esOrdered By: Roger Marshall on 08-02-2023 Monocytes/100 WBC (Bld) 9.6 % 0-10 [facility] Blood platelet mean volumeOr dered By: Roger Marshall on 08-02-2023 Platelet mean volume (Bld) [Entitic vol] 9.1 fL 6.2-12.0 [facility] Cervical or vagninal specime n microscopic examination [...] (RBC) [Entitic vol] 90.1 fL 81-99 [facility] HIV 1 and HIV-2 antibody ass ay with HIV-1 p24 antigen detectionOrdered By: Roger Marshall on 08-02-2023 HIV 1+2 Ab+HIV1 p24 Ag IA Ql Non-Reactive Nonreactive [facility] Hematocrit Auto (Bld) [Volum e fraction]Ordered By: Roger Marshall on 08-02-2023 Hematocrit (Bld) [Volume fraction] 35.6 % 37-47 [facility] Laboratory - CytologyOrdered By: Roger Marshall on 08-02-2023 Legal Associate Cyto stain Nom (Cvx/Vag) [ID] Comment . [facility] Comment on above: Bogdan Bradley , Senior Specialist (ASCP) Laboratory - Hematology and Cell countsOrdered [...] Medical Center Comment on above: Performed at: [address] [id number] Director: Nohemi Lewis MD, Phone: [phone] Laboratory - Miscellaneous t estsOrdered By: Roger Marshall on 08-02-2023 Service comment (Unsp spec) [Interp] Comment . [facility] Comment on above: This liquid based Th inPrep(R) pap test was screened withthe use of an image guided system. Service comment (Unsp spec) [Interp] . . [facility] MCHC Auto (RBC) [Mass/Vol]Or dered By: Roger Marshall on 08-02-2023 MCHC (RBC) [Mass/Vol] 33.4 g/dL 32-36 [facility] No Panel InformationOrdered By: Roger Marshall on 08-02-2023 Human Papillomavirus Screen Comment . [facility] Comment on above: The HPV DNA reflex c amina were not met with this specimenresult therefore, no HPV testing was performed.Performed at: [facility] [place] [id number] Director: Nohemi Lewis MD, Phone: [phone] Pathology report final diagnosis Narrative Comment . [facility] Comment on above: NEGATIVE FOR INTRAEP ITHELIAL LESION OR MALIGNANCY. Hepatitis B Surface Antigen Non-Reactive Nonreactive [facility] Hepatitis C Antibody Non-Reactive Nonreactive [facility] Comment on above: Non Reactive: < 0.8 Equivocal: >/= 0.8 to < 1.0 Reactive: >/= 1.0The CDC recommends that a reactive/equivocal HCV antibody result be followed up by the HCV Nucleic Acid Amplificationtest (125761) Rubella IgG Antibody Reactive Nonreactive [facility] Comment on above: Antibody Results Int erpretation of Immune Status Non Reactive Presumed Non-Immune Equivocal Equivocal Reactive Presumed Immune Platelets bldOrdered By: Gutierrez Marshall on 08-02-2023 Platelets (Bld) [#/Vol] 268 10*3/uL 150-450 [facility] Serum Treponema species anti body detectionOrdered By: Roger Marshall on 08-02-2023 Treponema sp Ab Ql (S) Non-Reactive [facility] Serum or plasma choriogonado tropin detectionOrdered By: Nicolle Lagos on 07-11-2023 HCG ( test) [place]l [address] mIU/mL <4 [facility] Comment on above: hCG levels with Gest ational AgeGestational Age hCG mIU/mL (IU/L)0.2 - 1 week 5 - 501-2 weeks 50 - 5002-3 weeks 100 - 26769-6 weeks 500 - 009305-9 weeks 1000 - 831193-8 weeks 86422 - 100,0006-8 weeks 94346 - 200,0002-3 months 46741 - 100,000 Basophil percentageOrdered B y: Sherwin Mendoza on 07-09-2023 Basophil percentage 0 SEEN /hpf 0-5 [facility] Bilirubin Test strip Ql (U)O rdered By: Sherwin Mendoza on 07-09-2023 Bilirubin Ql (U) Negative Negative [facility] Ketones Test strip Ql (U)Ord ered By: Sherwin Mendoza on 07-09-2023 Ketones Ql (U) Negative Negative [facility] Mucus LM Ql (Urine sed)Order ed By: Sherwin Mendoza on 07-09-2023 Mucus Ql (Urine sed) 0 SEEN /hpf [facility] Nitrite Test strip Ql (U)Ord ered By: Sherwin Mendoza on 07-09-2023 Nitrite Ql (U) Negative Negative [facility] Protein Test strip Ql (U)Ord ered By: Sherwin Mendoza on 07-09-2023 Protein Ql (U) Negative Negative [facility] Serum or plasma choriogonado tropin detectionOrdered By: Nicolle Lagos on 07-09-2023 HCG ( test) Ql 32738 mIU/mL <4 [facility] Comment on above: hCG levels with Gest ational AgeGestational Age hCG mIU/mL (IU/L)0.2 - 1 week 5 - 501-2 weeks 50 - 5002-3 weeks 100 - 94081-8 weeks 500 - 959654-6 weeks 1000 - 332255-5 weeks 94113 - 100,0006-8 weeks 26906 - 200,0002-3 months 86531 - 100,000 Squamous epithelial cells de tection in urine sediment by light microscopyOrdered By: Sherwin Mendoza on 07-09-2023 Epithelial cells.squamous LM Ql (Urine sed) 0 SEEN /hpf 5-10 [facility] Urine blood detectionOrdered By: Sherwin Mendoza on [...] 07-09-2023 Urobilinogen Ql (U) Normal mg/dl Normal [facility] Basophil percentageOrdered B y: Chioma Bradley on 03-05-2023 WBC (Bld) [#/Vol] 6.9 10*3/uL 4.4-11.0 [facility] Blood erythrocytes count (nu mber/volume)Ordered By: Chioma Bradley on 03-05-2023 RBC (Bld) [#/Vol] 4.24 10*6/uL 4.2-5.4 [facility] Blood hemoglobin measurement (mass/volume)Ordered By: Chioma Bradley on 03-05-2023 Hemoglobin (Bld) [Mass/Vol] 12.9 g/dL 12.0-15.0 [facility] Blood platelet mean volumeOr dered By: Chioma Bradley on 03-05-2023 Platelet mean volume (Bld) [Entitic vol] 9.0 fL 6.2-12.0 [facility] Determination of erythrocyte mean corpuscular volume (MCV)Ordered By: Chioma Bradley on 03-05-2023 MCV (RBC) [Entitic vol] 88.4 fL 81-99 [facility] Hematocrit Auto (Bld) [Volum e fraction]Ordered By: [...] 03-05-2023 MCHC (RBC) [Mass/Vol] 34.4 g/dL 32-36 [facility] Platelets bldOrdered By: Misael Bradley on 03-05-2023 Platelets (Bld) [#/Vol] 222 10*3/uL 150-450 [facility] Bacteria identified Cx Nom ( Wound)Ordered By: Refugio Barriga on 01-31-2023 Wound Culture Staphylococcus epidermidis [facility] Gram stain for investigation of transfusion reactionOrdered By: Refugio Barriga on 01-31-2023 Microscopic observation Gram stain [...] Basophils/100 WBC (Bld) 0.7 % 0-1 [facility] Eosinophils/100 WBC (Bld) 0.4 % 0-5 [facility] Neutrophils (Bld) [#/Vol] 6.4 10*3/uL 2.0-7.7 [facility] Neutrophils/100 WBC (Bld) 74.5 % 47-70 [facility] WBC (Bld) [#/Vol] 8.5 10*3/uL 4.4-11.0 [facility] Blood erythrocytes count (nu mber/volume)Ordered By: Dr. Bradley on 01-19-2023 RBC (Bld) [#/Vol] 4.46 10*6/uL 4.2-5.4 [facility] Blood hemoglobin measurement (mass/volume)Ordered By: Dr. Bradley on 01-19-2023 Hemoglobin (Bld) [Mass/Vol] 13.4 g/dL 12.0-15.0 [facility] Blood lymphocytes/100 leukoc ytesOrdered By: Dr. Bradley on 01-19-2023 Lymphocytes/100 WBC (Bld) 14.4 % 19-41 [facility] Blood monocytes/100 leukocyt esOrdered By: Dr. Bradley on 01-19-2023 Monocytes/100 WBC (Bld) 9.6 % 0-10 [facility] Blood platelet mean volumeOr dered By: Dr. Bradley on 01-19-2023 Platelet mean volume (Bld) [Entitic vol] 9.2 fL 6.2-12.0 [facility] Culture, urineOrdered By: Barbara Bradley on 01-19-2023 Bacteria identified Cx Nom (U) Culture exhibits no growth. [facility] Determination of erythrocyte mean corpuscular volume (MCV)Ordered By: Dr. Bradley on 01-19-2023 MCV (RBC) [Entitic vol] 91.7 fL 81-99 [facility] HIV 1 and HIV-2 antibody ass ay [...] 01-19-2023 MCHC (RBC) [Mass/Vol] 32.8 g/dL 32-36 [facility] No Panel InformationOrdered By: Dr. Bradley on 01-19-2023 Hepatitis B Surface Antigen Non-Reactive Nonreactive [facility] Hepatitis C Antibody Non-Reactive Nonreactive [facility] Comment on above: Non Reactive: < 0.8 Equivocal: >/= 0.8 to < 1.0 Reactive: >/= 1.0The CDC recommends that a reactive/equivocal HCV antibody result be followed up by the HCV Nucleic Acid Amplificationtest (539346) Rubella IgG Antibody Reactive Nonreactive [facility] Comment on above: Antibody Results [...] IA Qn (S) 800 index Immune >165 [facility] Comment on above: Negative <135 Equivo antonia 135 - 165 Positive >165A positive result generally indicates exposure to thepathogen or administration of specific immunoglobulins,but it is not indication of active infection or stageof disease.Performed at: [facility] [id number] Director: Peewee Rao PhD, Phone: [phone] No Panel InformationOrdered By: Dr. Bradley on 10-30-2022 Follicle Stimulating Hormone 3.0 mIU/mL [facility] Comment on above: NORMAL REFERENCE RAN [facility] FEMALE FOLLICULAR 2.3 - 12.6 mIU/mL MID-CYCLE PEAK 5.2 - 17.5 mIU/mL LUTEAL 1.7 - 12.9 mIU/mL POST-MENOPAUSAL ON MHT 5.9 - 72.8 mIU/mL NOT ON MHT 12.7 - 132.2 mlU/mL MALE 0.7 - 10.8 mIU/mL Luteinizing Hormone 3.7 mIU/mL [facility] Comment on above: NORMAL REFERENCE RAN GES FEMALE FOLLICULAR 1.9 - 26.2 mIU/mL MID-CYCLE PEAK 22.8 - 76.1 mIU/mL LUTEAL 0.6 - 16.6 mIU/mL POST-MENOPAUSAL ON MHT 1.1 - 52.4 mIU/mL NOT ON MHT 8.6 - 61.8 mIU/mL MALE 1.2 - 10.6 mIU/mL Rubella IgG Antibody Reactive Nonreactive [facility] Comment on above: Antibody Results Int erpretation of Immune Status Non Reactive Presumed Non-Immune Equivocal Equivocal Reactive Presumed Immune Vitamin D 25-Hydroxy 34.9 ng/mL [facility] Comment on above: Vitamin D 25(OH) Sta tus Range Deficiency <20 ng/mL (50nmol/L) Insufficiency 20 - 30 ng/mL (50 - 75 nmol/L) Sufficiency 30 - 100 ng/mL (75 - 250 nmol/L) Toxicity >100 ng/mL (>250 nmol/L) Serum Varicella zoster virus IgG antibody assay by immunoassay (units/volume)Ordered By: Dr. Bradley on 10-30-2022 VZV IgG IA Qn (S) 862 index Immune >165 [facility] Comment on above: Negative <135 Equivo antonia 135 - 165 Positive >165A positive result generally indicates exposure to thepathogen or administration of specific immunoglobulins,but it is not indication of active infection or stageof disease.Performed at: [place] [id number] Director: Peewee Rao PhD, Phone: [phone] Serum hepatitis B virus surf sarah antibody [...] 08-03-2022 Case Report Gynecologic Cytology Report Case: [id number] Authorizing Provider: Destiney Mccarthy APRN.FRENCH PROFESSOR Collected: 08/01/2022 02:49 PM Ordering Location: OB/Gynecology Received: 08/01/2022 05:00 PM First Screen: Yesica Lucas, SERGIO, ASCP Specimen: Pap, Cement Finisher Helper, Screening, CERVICAL SCREENING FLUID [facility] Clinical History HPV POS [facility] Cytology Interpretation Negative C [facility] FINAL DIAGNOSIS A - CERVICAL SCREENING FLUID Satisfactory for interpretation Negative for Intraepithelial lesion or malignancy. [facility] HPV Requested? Yes, Reflex HPV for ASCUS [facility] LMP 07/25/2022 [facility] Pap Disclaimer The Pap Smear is a screening test for cervical cancer. False negative results occur with all screening tests, emphasizing the need for rescreening at recommended intervals, and clinical correlation. [facility] PAP Cement Fin[employer] Helper Comment This specimen has been analyzed by the ThinPrep Imaging System, an automated imaging and review system, which assists the laboratory in evaluating cells on ThinPrep Pap tests. Following automated imaging, selected taveras from every slide are reviewed by a mortician investigator. [facility] Performing Lab Technical component, mortician investigator screening performed at [facility], [address] [address] CLIA# [id number] Diagnostic interpretation performed at [facility], [address] [facility] [address] CLIA# [id number] Communications Department Chair: Tyree Lozano M.D. [facility] Influenza virus A and B RNA and SARS-CoV-2 (COVID-19) N gene panel SEPIDEH+probe (Resp)on 07-26-2022 FLUAV RNA SEPIDEH+probe Ql (Unsp spec) Negative Negative for Influenza A by RT-PCR [facility] FLUBV RNA SEPIDEH+probe Ql (Unsp spec) Negative Negative for Influenza B by RT-PCR [facility] SARS-CoV-2 (COVID-19) RNA SEPIDEH+probe Ql (Resp) SARS-CoV-2 (Agent of COVID-19) Detected by RT-PCR or equivalent method. Abnormal Not Detected [facility] XR HAND GENERAL 3V PA/LAT/OB L LEFTon 07-25-2022 [facility] XR Hand - left PA and Latera l and Obliqueon 07-25-2022 IMPRESSION: No radiographic evidence of acute osseous injury. Seasonal Warehouse Associate: APOLINAR Transcribe Date/Time: Jul 25 2022 2:09P Dictated by : CHARY HANNAH MD This examination was interpreted and the report reviewed and electronically signed by: CHARY HANNAH MD on Jul 25 2022 2:23PM [facility] DIVISION OF RADIOLOGY * * *Final [...] Joint spaces preserved. DIVISION OF RADIOLOGY Provider, [facility] [place] - 07/25/2022 * * *Final Report* * [...] No radiographic evidence of acute osseous injury. Seasonal Warehouse Associate: PSCB Transcribe Date/Time: Jul 25 2022 2:09P Dictated by : CHARY HANNAH MD This examination was interpreted and the report reviewed and electronically signed by: CHARY HANNAH MD on Jul 25 2022 2:23PM EST [facility] Radiology Study observation (narrative) [facility]awel [facility] XR Hand - left PA and Latera l and ObliqueOrdered By: Ccf Provider on 07-25-2022 [facility] Basophil percentageon 2021 Potassium [Moles/Vol] 3.6 mmol/L 3.5-5.1 [facility] Work Phone: THIN PREP with HPV REFLEX C Uon 01-11-2021 . Comment Normal [facility] Comment on above: Result Comment: The HPV DNA reflex criteria were not met with this specimen result therefore, no HPV testing was performed. . Performed By: #### T PHRA #### Performed for [facility] [address] [place], [place] [id number] . Normal [facility] Comment on above: Performed By: #### T PHRA #### Performed for [facility] [address] [place], [place] [address] Legal Associate Cyto stain Nom (Cvx/Vag) [ID] Comment Normal [facility] Comment on above: Result Comment: Dickson Espino, Senior Specialist (ASCP) Performed By: #### T PHRA #### Performed for [place] [address] [place], [place] [address] Cytology report Cyto stain Doc (Cvx/Vag) Comment Normal [facility] Comment on above: Result Comment: NEGA TIVE FOR INTRAEPITHELIAL LESION OR MALIGNANCY. Performed By: #### T PHRA #### Performed for [place] [address] Cytology report Cyto stain.thin prep Doc (Cvx/Vag) Comment Normal [facility] Comment on above: Result Comment: This liquid based ThinPrep(R) pap test was screened with the use of an image guided system. Performed By: #### T PHRA #### Performed for [place] [address] Note: Comment Normal [facility] Comment on above: Result Comment: [...] By: #### T PHRA #### Performed for [place] [address] Statement of adequacy Cyto stain (Cvx/Vag) [Interp] Comment Normal [facility] Comment on above: Result Comment: Sati sfactory for evaluation. Endocervical and/or squamous metaplastic cells (endocervical component) are present. Performed By: #### T PHRA #### Performed for [place] [address] CHLAMYDIA and GONORRHEA NAAo n 01-09-2021 C. trachomatis rRNA SEPIDEH+probe Ql (Unsp spec) Negative Normal Negative [facility] Comment on above: Performed By: #### G [facility] #### Performed for [address] [place] [address] N. gonorrhoeae rRNA SEPIDEH+probe Ql (Unsp spec) Negative Normal Negative [facility] Comment on above: Performed By: #### G [facility] #### Performed for [place] [address] 2019 NOVEL CORONAVIRUS, NAAo n 02-09-20202018 NOVEL CORONAVIRUS, SEPIDEH Not Detected Normal Not Detected [facility] Comment on above: Result Comment: This test was developed and its performance characteristics determined by [facility]. This test has not been FDA cleared [...] detected) result in this assay. Performed at: [facility] [place] [address] [facility], [place] [id number] Business Applications Specialist: Sammie Santiago MD, Phone: [phone] INFLUENZA A/B ANTIGENSon INFLUENZA A/B ANTIGENS A NEGATIVE FLU RESULT DOES NOT RULE OUT INFLUENZA VIRAL INFECTION. A NEGATIVE FLU RESULT SHOULD BE CONFIRMED BY PCR. INFLUENZA A NEGATIVE INFLUENZA B NEGATIVE Normal [facility] Comment on above: Performed By: #### F LUAB #### [facility] [address] [place] [address] Office Visit: UC: bronchitis on 04-30-2017 Fall risk assessment No Invalid Interpretation Code [facility] Work Phone: Protein mass conc Done Invalid Interpretation Code [facility] Work Phone: Tobacco smoking status NHIS Never smoker Invalid Interpretation Code [facility] Work Phone: Vital Signs Date Time Vital Sign Value Performing Clinician Facility 05-04-2025 09:14-0400 Body height 170.[address] Boston Lopez MD Work Phone: [facility] 05-04-2025 09:14-0400 Body mass index (BMI) [Ratio] 21.3 kg/m2 Dr. Boston Lopez MD Work Phone: 4(299)870-701808 [place] [address] 05-04-2025 09:14-0400 Body weight 61.[address] Boston Lopez MD Work Phone: 4(469)077-470622 [place] [address] 05-04-2025 09:14-0400 Diastolic blood pressure 79 mm[Hg] Dr. Boston Lopez MD Work Phone: 1(707)609-104622 [place] [address] 05-04-2025 09:14-0400 Systolic blood pressure 117 mm[Hg] Dr. Boston Lopez MD Work Phone: 5(909)276-209222 [place] [address] 04-28-2025 14:01-0400 Body height 170.[address] Boston Lopez MD Work Phone: 3(989)993-711222 [place] [address] 04-28-2025 14:01-0400 Body mass index (BMI) [Ratio] 21.7 kg/m2 Dr. Boston Lopez MD Work Phone: 1(986)442-372222 [place] [address] 04-28-2025 14:01-0400 Body weight 62.[address] Boston Lopez MD Work Phone: 0(176)087-439522 [place] [address] 04-28-2025 14:01-0400 Diastolic blood pressure 80 mm[Hg] Dr. Boston Lopez MD Work Phone: 4(270)958-748122 [place] [address] 04-28-2025 14:01-0400 Systolic blood pressure 120 mm[Hg] Dr. Boston Lopez MD Work Phone: 9(208)762-267122 [place] [address] 08-27-2024 12:56-0500 Body height 170.2 cm Boston Lopez MD Work Phone: [facility] 08-27-2024 12:56-0500 Body mass index (BMI) [Ratio] 23.65 kg/m2 Boston Lopez MD Work Phone: [facility] 08-27-2024 12:56-0500 Body weight 68.49 kg Boston Lopez MD Work Phone: [facility] 08-27-2024 12:56-0500 Diastolic blood pressure 67 mm[Hg] Boston Lopez MD Work Phone: [facility] 08-27-2024 12:56-0500 Heart rate 88 /min Boston Lopez MD Work Phone: [facility] 08-27-2024 12:56-0500 Systolic blood pressure 104 mm[Hg] Boston Lopez MD Work Phone: [facility] 06-05-2024 13:23-0500 Body mass index (BMI) [Ratio] 26.1 kg/m2 Jesica Johnson SECURITY ASSURANCE SPECIALIST.ROW [employer] Work Phone: [facility] 06-05-2024 13:23-0500 Body temperature 100.29 [degF] Jesica Johnson SECURITY ASSURANCE SPECIALIST.[employer] Work Phone: [facility] 06-05-2024 13:23-0500 Body weight 75.6 kg Jesica Johnson SECURITY ASSURANCE SPECIALIST.[employer] Work Phone: [facility] 06-05-2024 13:23-0500 Diastolic blood pressure 64 mm[Hg] Jesica Johnson SECURITY ASSURANCE SPECIALIST.[employer] Work Phone: [facility] 06-05-2024 13:23-0500 Heart rate 109 /min Jesica Johnson SECURITY ASSURANCE SPECIALIST.[employer] Work Phone: [facility] 06-05-2024 13:23-0500 Respiratory rate 16 /min Jesica Johnson SECURITY ASSURANCE SPECIALIST.[employer] Work Phone: [facility] 06-05-2024 13:23-0500 SaO2% (BldA) [Mass fraction] 93 % Jesica Johnson SECURITY ASSURANCE SPECIALIST.[employer] Work Phone: [facility] 06-05-2024 13:23-0500 Systolic blood pressure 101 mm[Hg] Jesica Johnson SECURITY ASSURANCE SPECIALIST.[employer] Work Phone: [facility] 12-03-2023 09:50-0400 Body height 170.[address] Boston Lopez Work Phone: [facility] 12-03-2023 09:50-0400 Body mass index (BMI) [Ratio] 26.8 kg/m2 Dr. Boston Lopez Work Phone: [facility] 12-03-2023 09:50-0400 Body weight 77.[address] Boston Lopez Work Phone: 8(083)077-084822 [place] [address] 12-03-2023 09:50-0400 Diastolic blood pressure 66 mm[Hg] Dr. Boston Lopez Work Phone: 1(909)879-570222 [place] [address] 12-03-2023 09:50-0400 Systolic blood pressure 110 mm[Hg] Dr. oBston Lopez Work Phone: 9(440)730-428522 [place] [address] 11-05-2023 09:16-0400 Body mass index (BMI) [Ratio] 26.4 kg/m2 Dr. Boston Lopez Work Phone: 5(564)908-966922 [place] [address] 11-05-2023 09:16-0400 Body weight 76.[address] Boston Lopez Work Phone: 2(832)651-092622 [place] [address] 11-05-2023 09:16-0400 Diastolic blood pressure 71 mm[Hg] Dr. Boston Lopez Work Phone: 6(213)528-308822 [place] [address] 11-05-2023 09:16-0400 Systolic blood pressure 113 mm[Hg] Dr. Boston Lopez Work Phone: 9(237)275-893722 [place] [address] 10-11-2023 11:08-0400 Body mass index (BMI) [Ratio] 25.7 kg/m2 Dr. Boston Lopez Work Phone: 4(194)944-436922 [place] [address] 10-11-2023 11:08-0400 Body weight 74.[address] Boston Lopez Work Phone: 1(624)856-516622 [place] [address] 10-11-2023 11:08-0400 Diastolic blood pressure 77 mm[Hg] Dr. Boston Lopez Work Phone: 0(715)360-647022 [place] [address] 10-11-2023 11:08-0400 Systolic blood pressure 109 mm[Hg] Dr. Boston Lopez Work Phone: 8(723)203-232122 [place] [address] 10-04-2023 06:49-0500 Body weight 74.[address] Boston Lopez Work Phone: 4(649)006-163022 [place] [address] 10-04-2023 06:49-0500 Diastolic blood pressure 75 mm[Hg] Dr. Boston Lopez Work Phone: 7(978)194-594022 [place] [address] 10-04-2023 06:49-0500 Systolic blood pressure 115 mm[Hg] Dr. Boston Lopez Work Phone: 6(289)882-464822 [place] [address] 09-27-2023 06:59-0500 Body weight 73.[address] Boston Lopez Work Phone: 6(662)613-622622 [place] [address] 09-27-2023 06:59-0500 Diastolic blood pressure 77 mm[Hg] Dr. Boston Lopez Work Phone: 4(657)418-994022 [place] [address] 09-27-2023 06:59-0500 Systolic blood pressure 138 mm[Hg] Dr. Boston Lopez Work Phone: 4(258)526-833022 [place] [address] 09-21-2023 15:06-0500 Body height 170.[address] Boston Lopez Work Phone: 8(068)576-305022 [place] [address] 09-21-2023 15:06-0500 Body mass index (BMI) [Ratio] 25.7 kg/m2 Dr. Boston Lopez Work Phone: 6(609)508-374422 [place] [address] 09-21-2023 15:06-0500 Body weight 74.[address] Boston Lopez Work Phone: 0(735)452-581022 [place] [address] 09-21-2023 15:06-0500 Diastolic blood pressure 76 mm[Hg] Dr. Boston Lopez Work Phone: 5(693)582-217222 [place] [address] 09-21-2023 15:06-0500 Systolic blood pressure 124 mm[Hg] Dr. Boston Lopez Work Phone: 2(441)980-298622 [place] [address] 09-12-2023 14:46-0500 Body mass index (BMI) [Ratio] 24.9 kg/m2 Dr. Boston Lopez Work Phone: 7(717)088-270622 [place] [address] 09-12-2023 14:46-0500 Body weight 72.[address] Boston Lopez Work Phone: 5(573)718-487922 [place] [address] 09-12-2023 14:46-0500 Diastolic blood pressure 80 mm[Hg] Dr. Boston Lopez Work Phone: 0(133)354-611222 [place] [address] 09-12-2023 14:46-0500 Systolic blood pressure 135 mm[Hg] Dr. Boston Lopez Work Phone: 6(311)259-576022 [place] [address] 08-28-2023 16:02-0500 Body height 170.[address] Boston Lopez Work Phone: 0(763)989-649322 [place] [address] 08-28-2023 16:00-0500 Body mass index (BMI) [Ratio] 24.8 kg/m2 Dr. Boston Lopez Work Phone: 0(045)273-360022 [place] [address] 08-28-2023 16:00-0500 Body weight 71.[address] Boston Lopez Work Phone: 5(902)584-439022 [place] [address] 08-28-2023 16:00-0500 Diastolic blood pressure 76 mm[Hg] Dr. Boston Lopez Work Phone: 3(988)312-342122 [place] [address] 08-28-2023 16:00-0500 Systolic blood pressure 105 mm[Hg] Dr. Boston Lopez Work Phone: 1(386)660-596122 [place] [address] 08-18-2023 22:09-0500 Body height 170.[address] Boston Lopez Work Phone: 0(992)094-100022 [place] [address] 08-18-2023 22:09-0500 Body mass index (BMI) [Ratio] 25 kg/m2 Dr. Boston Lopez Work Phone: 7(371)566-537922 [place] [address] 08-18-2023 22:09-0500 Body temperature 96.8 [degF] Dr. Boston Lopez Work Phone: 7(415)602-214022 [place] [address] 08-18-2023 22:09-0500 Body weight 72.[address] Boston Lopez Work Phone: 9(876)395-148622 [place] [address] 08-18-2023 22:09-0500 Diastolic blood pressure 83 mm[Hg] Dr. Boston Lopez Work Phone: 8(787)740-219822 [place] [address] 08-18-2023 22:09-0500 Heart rate 115 /min Dr. Boston Lopez Work Phone: 6(228)349-710922 [place] [address] 08-18-2023 22:09-0500 Respiratory rate 18 /min Dr. Boston Lopez Work Phone: [facility] 08-18-2023 22:09-0500 SaO2% (BldA) [Mass fraction] 99 % Dr. Boston Lopez Work Phone: [facility] 08-18-2023 22:09-0500 Systolic blood pressure 120 mm[Hg] Dr. Boston Lopez Work Phone: 4(673)183-162508 [place] [address] 08-02-2023 14:38-0500 Body height 170.[address] Boston Lopez Work Phone: 5(889)787-582808 [place] [address] 08-02-2023 14:37-0500 Body mass index (BMI) [Ratio] 24.8 kg/m2 Dr. Boston Lopez Work Phone: 5(841)363-834808 [place] [address] 08-02-2023 14:37-0500 Body weight 71.[address] Boston Lopez Work Phone: 4(912)760-981508 [place] [address] 08-02-2023 14:37-0500 Diastolic blood pressure 80 mm[Hg] Dr. Boston Lopez Work Phone: 0(855)299-555908 [place] [address] 08-02-2023 14:37-0500 Systolic blood pressure 126 mm[Hg] Dr. Boston Lopez Work Phone: [facility] 07-09-2023 15:49-0500 Diastolic blood pressure 73 mm[Hg] [facility] 07-09-2023 15:49-0500 Heart rate 64 /min [facility] 07-09-2023 15:49-0500 Respiratory rate 16 /min [facility] 07-09-2023 15:49-0500 SaO2% (BldA) [Mass fraction] 99 % [facility] 07-09-2023 15:49-0500 Systolic blood pressure 134 mm[Hg] [facility] 07-09-2023 13:46-0500 Body height 170.18 cm [facility] 07-09-2023 13:46-0500 Body mass index (BMI) [Ratio] 24.3 kg/m2 [facility] 07-09-2023 13:46-0500 Body temperature 96.6 [degF] [facility] 07-09-2023 13:46-0500 Body weight 70.3 kg [facility] 03-05-2023 14:42-0400 Body temperature 97.2 [degF] [facility] 03-05-2023 14:42-0400 Diastolic blood pressure 79 mm[Hg] [facility] 03-05-2023 14:42-0400 Heart rate 76 /min [facility] 03-05-2023 14:42-0400 Respiratory rate 18 /min [facility] 03-05-2023 14:42-0400 SaO2% (BldA) [Mass fraction] 100 % [facility] 03-05-2023 14:42-0400 Systolic blood pressure 112 mm[Hg] [facility] 03-05-2023 11:08-0400 Body height 170.18 cm [facility] 03-05-2023 11:08-0400 Body mass index (BMI) [Ratio] 23.6 kg/m2 [facility] 03-05-2023 11:08-0400 Body weight 68.22 kg [facility] 02-01-2023 18:39-0400 Body temperature 98.29 [degF] Boston Lopez MD Work Phone: [facility] 02-01-2023 18:39-0400 Body weight 67.59 kg Boston Lopez MD Work Phone: [facility] 02-01-2023 18:39-0400 Diastolic blood pressure 70 mm[Hg] Boston Lopez MD Work Phone: [facility] 02-01-2023 18:39-0400 Heart rate 91 /min Boston Lopez MD Work Phone: [facility] 02-01-2023 18:39-0400 SaO2% (BldA) [Mass fraction] 98 % Boston Lopez MD Work Phone: [facility] 02-01-2023 18:39-0400 Systolic blood pressure 104 mm[Hg] Boston Lopez MD Work Phone: [facility] 08-01-2022 13:27-0500 Body height 170.2 cm Destiney Mccarthy APRN.FRENCH PROFESSOR Work Phone: [facility] 08-01-2022 13:27-0500 Body weight 66.68 kg Destiney Mccarthy APRN.FRENCH PROFESSOR Work Phone: [facility] 08-01-2022 13:27-0500 Diastolic blood pressure 62 mm[Hg] Destiney Mccarthy APRN.FRENCH PROFESSOR Work Phone: [facility] 08-01-2022 13:27-0500 Systolic blood pressure 100 mm[Hg] Destiney Mccarthy APRN.FRENCH PROFESSOR Work Phone: [facility] 07-25-2022 13:02-0500 Body height 172 cm Boston Lopez MD Work Phone: [facility] 07-25-2022 13:02-0500 Body weight 66.22 kg Boston Lopez MD Work Phone: [facility] 07-25-2022 13:02-0500 Diastolic blood pressure 70 mm[Hg] Boston Lopez MD Work Phone: [facility] 07-25-2022 13:02-0500 Heart rate 99 /min Boston Lopez MD Work Phone: [facility] 07-25-2022 13:02-0500 Respiratory rate 16 /min Boston Lopez MD Work Phone: [facility] 07-25-2022 13:02-0500 SaO2% (BldA) [Mass fraction] 99 % Boston Lopez MD Work Phone: [facility] 07-25-2022 13:02-0500 Systolic blood pressure 110 mm[Hg] Boston Lopez MD Work Phone: [facility] 04-30-2017 16:33-0400 BMI (Body Mass Index) 23.63 kg/m2 Luisa Grover LPN [facility] Work Phone: 04-30-2017 16:33-0400 Body Temperature 98.8 [degF] Luisa Grover LPN [facility] Work Phone: 04-30-2017 16:33-0400 BP Diastolic 74 mm[Hg] Luisa Grover LPN [facility] Work Phone: 04-30-2017 16:33-0400 BP Systolic 104 mm[Hg] Luisa Grover LPN [facility] Work Phone: 04-30-2017 16:33-0400 Height 172.72 cm Luisa Grover LPN [facility] Work Phone: 04-30-2017 16:33-0400 Pulse (Heart Rate) 83 /min Luisa Grover LPN [facility] Work Phone: 04-30-2017 16:33-0400 Respiratory Rate 14 /min Luisa Grover LPN [facility] Work Phone: 04-30-2017 16:33-0400 Weight 70.49 kg Luisa Grover LPN [facility] Work Phone: Encounters Encounter Date Encounter Type Care Provider Facility Start: 05-27-2025 ambulatory Kari Gonzalez lity:[facility] Start: 05-26-2025 End: 05-26-2025 ambulatory Kari Vanegas Facility:[facility] Start: 05-04-2025 End: 05-04-2025 Patient encounter procedure Roger Marshall CNM -[facility] Work Phone: Start: 05-04-2025 End: 05-04-[address] Boston Lopez MD Work Phone: -[facility] Start: 05-01-2025 ambulatory LULI PLUMMER Fac ility:[facility] Start: 04-28-2025 End: 04-28-[address] Nicolle Massey DO -[facility] Work Phone: Start: 04-28-2025 End: 04-28-[address] Boston Lopez MD Work Phone: -[facility] Start: 04-28-2025 End: 04-28-2025 [facility] Start: 04-28-2025 End: 04-28-2025 ambulatory [facility] Facility:[facility] Start: 04-16-2025 End: 04-16-2025 ambulatory LULI PLUMMER Facility:[facility] Start: 04-13-2025 End: 04-13-[address] Boston Lopez MD Work Phone: -Ultrasound [facility] Start: 04-13-2025 End: 04-13-[address] Kari Vanegas MD -Ultrasound [facility] Work Phone: Start: 04-13-2025 End: 04-13-2025 ambulatory Kari Vanegas Facility:[facility] Start: 04-01-2025 End: 04-01-[address] Boston Lopez MD Work Phone: -Ultrasound [facility] Start: 04-01-2025 End: 04-01-[address] Kari Vanegas MD -Ultrasound [facility] Work Phone: Start: 04-01-2025 End: 04-01-2025 ambulatory Kari Vanegas Facility:[facility] Start: 03-22-2025 End: 03-22-[address] Boston Lopez MD Work Phone: -Laboratory Start: 03-22-2025 End: 03-22-[address] Kari Vanegas MD -Laboratory Work Phone: Start: 03-22-2025 End: 03-22-2025 ambulatory Boston John Facility:[facility] Start: 03-20-2025 End: 03-20-[address] Boston Lopez MD Work Phone: -Laboratory Start: 03-20-2025 End: 03-20-[address] Kari Vanegas MD -Laboratory Work Phone: Start: 03-20-2025 End: 03-20-2025 ambulatory Kari Vanegas Facility:[facility] Start: 09-15-2024 End: 09-15-2024 Follow-up encounter Boston Lopez MD Work Phone: [facility] Start: 09-15-2024 End: 09-15-2024 ambulatory BOSTON Ken JOHN Facility:[facility] Start: 08-27-2024 Encounter for genera l adult medical examination without abnormal findings BOSTON LOPEZ [facility] Start: 08-27-2024 End: 08-27-2024 Subsequent hospital visit by physician [facility] Work Phone: Radiology Comment on above: Well adult exam [Z00 .00] Start: 08-27-2024 End: 08-27-2024 ambulatory BOSTON Ken JOHN Facility:[facility] Start: 08-27-2024 End: 08-27-2024 Patient encounter procedure Boston Lopez MD Work Phone: [facility] Comment on above: Well adult exam (Jeny angel luis Dx); Chest pain, unspecified type; Encounter for screening examination for other mental health and behavioral disorders; Screening for depression Start: 08-27-2024 End: 08-27-2024 Patient encounter status Boston Lopez MD Work Phone: [facility] Start: 08-27-2024 End: 08-27-2024 ambulatory BOSTON LOPEZ Facility:[facility] Start: 06-05-2024 End: 06-05-2024 Office outpatient visit 15 minutes Jesica Johnson SECURITY ASSURANCE SPECIALIST.[employer] Work Phone: Internal Medicine [facility] Comment on above: Sinobronchitis (Prim danish Dx); Acute cough; Fever, unspecified fever cause Start: 06-05-2024 End: 06-05-2024 ambulatory JESICA JOHNSON Facility:[facility] Start: 06-03-2024 End: 06-03-2024 ambulatory Boston Lopez MD Work Phone: [facility] Comment on above: Chest Pain Start: 02-23-2024 End: 02-23-2024 Emergency department patient visit TEMP ID [id number] Start: 01-24-2024 End: 01-24-2024 ambulatory BOSTON Rogers [facility] Start: 12-25-2023 End: 12-25-2023 ambulatory [facility] Start: 12-03-2023 End: 12-03-[address] Boston Lopez Work Phone: [facility] Work Phone: Start: 12-03-2023 End: 12-03-[address] Boston Lopez Work Phone: [facility] Work Phone: Start: 11-29-2023 End: 11-29-2023 ambulatory BOSTON [facility] Start: 11-05-2023 End: 11-05-[address] Boston Lopez Work Phone: [facility] Work Phone: Start: 11-01-2023 End: 11-01-2023 ambulatory TRUNG [facility] Start: 10-11-2023 End: 10-11-2023 ambulatory HINA NEWMAN [facility] Start: 10-11-2023 End: 10-11-[address] Boston Lopez Work Phone: [facility] Work Phone: Start: 10-04-2023 End: 10-04-[address] Boston Lopez Work Phone: [facility] Start: 09-27-2023 End: 09-27-[address] Boston Lopez Work Phone: [facility] Start: 09-21-2023 End: 09-21-[address] Boston Lopez Work Phone: [facility] Work Phone: Start: 09-21-2023 End: 09-21-[address] Boston Lopez Work Phone: [facility]Laboratory, Specimen Work Phone: Start: 09-21-2023 End: 09-21-[address] Boston Lopez Work Phone: [facility] Work Phone: Start: 09-12-2023 End: 09-12-[address] Boston Lopez Work Phone: [facility] Work Phone: Start: 08-28-2023 End: 08-28-[address] Boston Lopez Work Phone: [facility] Work Phone: Start: 08-28-2023 End: 08-28-[address] Boston Lopez Work Phone: [facility] Work Phone: Start: 08-18-2023 End: 08-19-2023 Emergency department patient [...] encounter procedure Dr. Boston Lopez Work Phone: [facility] Work Phone: Start: 07-17-2023 End: 07-17-2023 ambulatory [facility] Work Phone: Start: 07-17-2023 End: 07-17-2023 Patient encounter procedure [facility] Work Phone: Start: 07-11-2023 End: 07-11-2023 ambulatory [facility] Work Phone: Start: 07-11-2023 End: 07-11-2023 Patient encounter procedure [facility] Work Phone: Start: 07-09-2023 End: 07-09-2023 Emergency department patient visit [facility] Work Phone: Start: 07-09-2023 End: 07-09-2023 Patient encounter procedure [facility] Work Phone: Start: 03-29-2023 End: 03-29-2023 ambulatory Boston Lopez MD Work Phone: [facility] Comment on above: Brittle nails (Prima ry Dx); Hair loss; Family history of thyroid disease Start: 03-29-2023 End: 03-29-2023 Telemedicine consultation with patient Boston Lopez MD Work Phone: [facility] Start: 03-05-2023 End: 03-05-2023 Admission to same day surgery center [facility] Start: 03-05-2023 End: 03-05-2023 ambulatory [facility] Work Phone: Start: 02-01-2023 End: 02-01-2023 Patient encounter procedure Boston Lopez MD Work Phone: [facility] Comment on above: Erythema migrans (Pr imary Dx) Start: 01-31-2023 End: 01-31-2023 ambulatory [facility] Work Phone: Start: 01-31-2023 End: 01-31-2023 Patient encounter procedure [facility]Labor[facility] Specimen Work Phone: Start: 01-19-2023 End: 01-19-2023 ambulatory [facility] Work Phone: Start: 01-19-2023 End: 01-19-2023 Patient encounter procedure [facility] roller operator Off Start: 10-30-2022 End: 10-30-2022 ambulatory [facility] Work Phone: Start: 10-30-2022 End: 10-30-2022 Patient encounter procedure [facility] roller operator Off Start: 08-01-2022 End: 08-01-2022 Patient encounter procedure Destiney Mccarthy APRN.FRENCH PROFESSOR Work Phone: OB/Gynecology Comment on above: Encounter for gyneco logical examination (general) (routine) without abnormal findings (Primary Dx); Screening for cervical cancer; Screen for STD (sexually transmitted disease) Start: 08-01-2022 End: 08-01-2022 Patient encounter status Desitney Mccarthy APRN.FRENCH PROFESSOR Work Phone: OB/Gynecology Start: 07-26-2022 Telephone encounter Boston Lopez MD Work Phone: [facility] Comment on above: Results Start: 07-25-2022 End: 07-25-2022 Subsequent hospital visit by physician [facility] Work Phone: Radiology Comment on above: Pain of finger of le ft hand [M79.645] Start: 07-25-2022 End: 07-25-2022 Patient encounter procedure Boston Lopez MD Work Phone: [facility] Comment on above: Well adult exam (Jeny angel luis Dx); Pain of finger of left hand; Screening for cervical cancer; Acute cough; Screening for lipid disorders; Screening for diabetes mellitus (DM) Start: 07-25-2022 End: 07-25-2022 Patient encounter status Boston Lopez MD Work Phone: [facility] Start: 11-29-2021 End: 11-29-2021 Patient encounter procedure [facility] Start: 01-11-2021 Encounter for gynecological examination (general) (routine) without abnormal findings ROXANN THURSTON DO [facility] Start: 01-06-2021 End: 01-06-2021 ambulatory ROXANN THURSTON DO Facility:[facility] Start: 10-17-2017 End: 10-17-2017 Ambulatory Ann Juan Facility[facility] Procedures Date Procedure Procedure Detail Performing Clinician Start: 04-28-2025 [address] C antibody measurement Dr. Boston Lopez MD Work Phone: Comment on above: Reactive: Presumptiv e evidence of antibodies to HCV. Follow CDC recommendations for supplemental testing.Non-Reactive: Antibodies to HCV were not detected; does not exclude the possibility of exposure to HCVReactive Results are presumptive evidence of antibodies to HCV. Follow CDC recommendations for supplemental testing.Order confirmation testing: HCV Quant by PCR testing - HCVPCR #[id number] Non Reactive: < 0.8 Equivocal: >/= 0.8 to < 1.0 Reactive: >/= 1.0The CDC requires that a reactive/equivocal HCV antibody result be sent out for confirmation. HCV Quant by PCR testing. Start: 04-28-[address] Boston Lopez MD Work Phone: Comment on above: Antibody Result: Int erpretationNon-Reactive: Non- ImmuneReactive: ImmuneThe following results were obtained with the Elecsys Rubella IgG assay. Results from assays of other manufacturers cannot be used interchangeably. Start: 04-28-2025 Serologic test for syphilis Dr. Boston Lopez MD Work Phone: Start: 04-28-[address] Tito Lopez MD Work Phone: Start: 04-13-2025 Transvaginal obstetr ic ultrasonography Dr. Boston Lopez MD Work Phone: Start: 04-01-2025 Transvaginal obstetr ic ultrasonography Dr. Boston Lopez MD Work Phone: Start: 08-27-2024 Radiologic exam ches t 2 views Boston Lopez MD Work Phone: Start: 08-27-2024 Ecg routine ecg w/le ast 12 lds i&r only Boston Lopez MD Work Phone: Start: 08-27-2024 Adult depression scr eening assessment Boston Lopez MD Work Phone: Start: 09-21-[address] Bhanu Lopez Work Phone: Start: 09-21-2023 Investigation of transfusion reaction Dr. Boston Lopez Work Phone: Start: 09-21-[address] Tito Lopez Work Phone: Start: 08-28-[address] Bhanu Lopez Work Phone: Start: 08-28-2023 Investigation of transfusion reaction Dr. Boston Lopez Work Phone: Start: 08-02-[address] Tito Lopez Work Phone: Start: 07-17-2023 Transvaginal obstetr ic ultrasonography Start: 07-09-2023 Transvaginal obstetr ic ultrasonography Start: 03-05-2023 Dilation and curetta ge of uterus Start: 01-31-2023 Investigation of transfusion reaction Start: 01-31-2023 Microbial culture, routine Start: 01-19-2023 Urine culture Start: 08-01-2022 Cytp c/v auto thin l yr prepj scr mnl rescr phys Destiney Mccarthy SECURITY ASSURANCE SPECIALIST.FRENCH PROFESSOR Work Phone: Start: 07-25-2022 Radex hand minimum 3 views Boston Lopez MD Work Phone: Start: 07-25-2022 COVID WITH FLUA+B, ROUTINE Boston Lopez MD Work Phone: H/O: section Status pos t section Dr. Boston Lopez MD Work Phone: Comment on above: 02/19/24: PCS JV Yu ch. Urbano H/O: section Hx of cesa rean section Dr. Boston Lopez MD Work Phone: H/O: section Hx of cesa rean section Dr. Nicolle Massey DO H/O: section Hx of cesa rean section Roger Marshall CNM Urine culture Plan of Treatment Date Care Activity Detail Author Start: 12-26-2033 Urine microalbumin profile DTa P,Tdap,Td Vaccine (2 - Td or Tdap) [facility] Start: 08-27-2025 Anxiety Screening Anxiety Screening [facility] Start: 08-27-2025 Covid-19 Vaccine ( season) Covid-19 Vaccine () [facility] Comment on above: Postponed from 03/30 (Declined at this time) Start: 08-27-2025 Depression Screening Depression Scre ening [facility] Start: 08-01-2025 PAP TESTING PAP TESTING [facility] Start: 08-01-2025 Screening for malign ant neoplasm of cervix Cervical Cancer Screening [facility] Start: 04-28-2025 Bacteria identified in Urine by Culture Urine Culture [facility] Start: 04-28-2025 Chlamydia deoxyribon ucleic acid detection [facility] Start: 04-28-2025 [facility] Start: 01-26-2025 Influenza vaccination Influenza Vacc ine (#1) [facility] Comment on above: Postponed from 03/30 (Declined at this time) Start: 09-15-2024 End: 09-15-2024 Patient encounter procedure 09/15/2024 8:00 AM EST Office Visit Cardiology [address] [place], [place] [id number] Chest pain, unspecified type [R07.9] Cardiology Comment on above: Chest pain, unspecif ied type [R07.9] Start: 03-30-2024 Covid-19 Vaccine ( season) Covid-19 Vaccine ( season) [facility] Start: 03-30-2024 Covid-19 Vaccine ( season) Covid-19 Vaccine ( season) [facility] Start: 03-30-2024 Covid-19 Vaccine () Covid-19 Vaccine ( season) [facility] Start: 03-30-2024 Influenza vaccination Influenza Vacc ine (#1) [facility] Start: 08-19-2023 [facility] Start: 08-02-2023 Liquid based cervica l cytology screening [facility] Start: 03-30-2023 Influenza vaccination INFLUENZA (#1) [facility] Start: 03-29-2023 End: 05-29-2023 CBC W Auto Differential panel - Blood CBC + DIFF Lab Routine Brittle nails Hair loss Family history of thyroid disease Expected: 03/29/2023, Expires: 05/29/2023 [facility] Work Phone: Comment on above: Expected: 03/29/2023 , Expires: 05/29/2023 Start: 03-29-2023 End: 05-29-2023 Comprehensive metabolic 2000 panel - Serum or Plasma COMP METABOLIC PANEL Lab Routine Brittle nails Hair loss Family history of thyroid disease Expected: 03/29/2023, Expires: 05/29/2023 [facility] Work Phone: Comment on above: Expected: 03/29/2023 , Expires: 05/29/2023 Start: 03-29-2023 End: 05-29-2023 T4/FTI/T4U T4/FTI/T4U Lab Routine Brittle nails Hair loss Family history of thyroid disease Expected: 03/29/2023, Expires: 05/29/2023 [facility] Work Phone: Comment on above: Expected: 03/29/2023 , Expires: 05/29/2023 Start: 03-29-2023 End: 05-29-2023 Thyrotropin [Units/volume] in Serum or Plasma TSH BLD Lab Routine Brittle nails Hair loss Family history of thyroid disease Expected: 03/29/2023, Expires: 05/29/2023 [facility] Work Phone: Comment on above: Expected: 03/29/2023 , Expires: 05/29/2023 Start: 03-29-2023 End: 05-29-2023 Triiodothyronine (T3) [Mass/volume] in Serum or Plasma T3 BLD Lab Routine Brittle nails Hair loss Family history of thyroid disease Expected: 03/29/2023, Expires: 05/29/2023 [facility] Work Phone: Comment on above: Expected: 03/29/2023 , Expires: 05/29/2023 Start: 03-05-2023 Patient discharge [facility] Start: 03-05-2023 Ambulation without limitation [facility] Start: 03-05-2023 Medication education [facility] Start: 03-05-2023 Planned voiding [facility] Start: 03-05-2023 Taking patient vital signs [facility] Start: 03-05-2023 Vital signs measurements [facility] Start: 03-05-2023 End: 03-05-2023 [facility] Start: 02-01-2023 End: 04-03-2023 Borrelia burgdorferi IgG and IgM panel - Serum LYME AB EARLY <=30 DAY SYMPTOMS Lab Routine Erythema migrans Expected: 02/01/2023, Expires: 04/03/2023 [facility] Work Phone: Comment on above: Expected: 02/01/2023 , Expires: 04/03/2023 Start: 02-01-2023 End: 04-03-2023 CBC W Auto Differential panel - Blood CBC + DIFF Lab Routine Erythema migrans Expected: 02/01/2023, Expires: 04/03/2023 [facility] Work Phone: Comment on above: Expected: 02/01/2023 , Expires: 04/03/2023 Start: 02-01-2023 End: 04-03-2023 Erythrocyte sedimentation rate SED RATE WESTERGREN Lab Routine Erythema migrans Expected: 02/01/2023, Expires: 04/03/2023 [facility] Work Phone: Comment on above: Expected: 02/01/2023 , Expires: 04/03/2023 Start: 01-26-2023 Influenza vaccination INFLUENZA (#1) [facility] Comment on above: Postponed from 03/30 (Declined at this time) Start: 01-23-2023 End: 03-25-2023 Lipid 1996 panel - Serum or Plasma LIPID PANEL BASIC Lab Routine Screening for lipid disorders Expected: 01/23/2023, Expires: 03/25/2023 [facility] Work Phone: Comment on above: Expected: 01/23/2023 , Expires: 03/25/2023 Start: 07-30-2022 DEPRESSION ASSESSMENT DEPRESSION ASS ESSMENT [facility] Start: 07-25-2022 End: 09-24-2022 Fasting glucose [Mass/volume] in Serum or Plasma GLUCOSE FASTING BLD Lab Routine Screening for diabetes mellitus (DM) Expected: 07/25/2022, Expires: 09/24/2022 [facility] Work Phone: Comment on above: Expected: 07/25/2022 , Expires: 09/24/2022 Start: 04-30-2017 End: 04-30-2017 Appointment Appointment [facility] Work Phone: Start: 2016 PAP TESTING PAP TESTING [facility] Start: 2014 Urine microalbumin profile [facility] Start: 2013 Anxiety Screening Anxiety Screening [facility] Start: 2013 Depression Screening Depression Scre ening [facility] Start: 1995 COVID-19 VACCINE (#1) COVID-19 VACCI NE (#1) [facility] ECG COMPLETE ECG COMPLETE ECG Routine Chest pain, unspecified type 08/27/2024 1:15 PM EST [facility] End: 08-27-2025 Echocardiography ECHO Cardiology Routine Chest pain, unspecified type 1 Occurrences starting 08/27/2024 until 08/27/2025 [facility] Work Phone: Comment on above: 1 Occurrences starti ng 08/27/2024 until 08/27/2025 Neisseria gonorrhoea e rRNA [Presence] in Unspecified specimen by SEPIDEH with probe detection [facility] Patient Education [facility] Work Phone: Patient referral [facility] Work Phone: PCR test for Chlamyd ia trachomatis [facility] Source specific culture [facility] Urine culture [facility] End: 07-05-2025 XR Chest PA and Lateral XR CHEST 2V FRONTAL/LAT Radiology STAT Acute cough Fever, unspecified fever cause Sinobronchitis 1 Occurrences starting 06/05/2024 until 07/05/2025 [facility] Work Phone: Comment on above: 1 Occurrences starti ng 06/05/2024 until 07/05/2025 [facility] Immunizations Immunization Date Immunization Notes Care Provider Fa tania 12-27-2023 tetanus toxoid, redu rox diphtheria toxoid, and acellular pertussis vaccine, adsorbed Dr. Boston Lopez MD Work Phone: [facility] Payers Date Payer Category Payer Self-pay [id number] 2022 Private Health Insurance MMO [employer] PPO Member Subscriber Plan / Payer (Effective 2022-Present) Name: Kaylie Kim Relation to Subscriber: Self Name: KaylieKim Payer ID: Not on file Type: PPO Address: [place] [id number] 2022 Unknown [id number] 2017 Unknown 2004 Unknown [id number] 1995 Unknown [id number]. 419 1995 Unknown [id number]. 479 1995 Unknown [id number]. 479 1995 Unknown [id number]. 479 1995 Unknown [id number]. 479 1995 Unknown [id number] [id number]. 479 Private Health Insurance [facility] [id number] [place] [address] [id number] Unknown [id number] Unknown [id number] Unknown [id number] 2.16.840.1.524098.3.579.2. 462 Unknown [id number] 2.16.840.1.917269.3.579.2. 462 Unknown [id number] 2.16.840.1.887100.3.579.2. 462 Unknown [id number] 2.16.840.1.210683.3.579.2. 462 Unknown [id number] 2.16.840.1.197300.3.579.2. 462 Unknown [id number] 2.16.840.1.307206.3.579.2. 462 Unknown [id number] 2.16.840.1.428033.3.579.2. 462 Unknown [id number] 2.16.840.1.830610.3.579.2. 462 Unknown [id number] 2.16.840.1.819685.3.579.2. 462 Unknown [id number] [id number]. 462 Social History Date Type Detail Facility Start: 12-09-2017 End: 07-09-2023 Tobacco smoking status VAIS Unknown if ever smoked [facility] Start: 1995 Sex Assigned At Female [facility] Start: 07-25-2022 End: 04-16-2025 Tobacco smoking status VAIS Never smoked tobacco [facility] Start: 07-25-2022 Tobacco use and exposure Smoke less tobacco non-user [facility] Start: 07-18-2022 History SDOH Alcohol Frequency 2 [facility] Start: 07-18-2022 History SDOH Social Connections Phone 5 [facility] Start: 07-18-2022 History SDOH Social Connections Faith 3 [facility] Start: 07-18-2022 History SDOH Social Connections Membership 1 [facility] Start: 1995 Sex Assigned At Not on file [facility] Start: 08-01-2022 End: 08-27-2024 Alcohol intake Current drinker of alcohol (finding) [facility] Start: 08-01-2022 Alcohol Comment occasional [facility] Start: 07-18-2022 End: 02-01-2023 History of Social function [facility] Start: 07-18-2022 End: 02-01-2023 Social connection and isolation panel [facility] Do you belong to any clubs or organizations such as roman catholic groups, unions, fraternal or athletic groups, or school groups? Yes [facility] Are you now , , , , never or living with a partner? [facility] How often to you hav e a drink containing alcohol? Monthly or less [facility] How many standard dr inks containing alcohol do you have on a typical day? 3 or 4 [facility] How often do you hav e 6 or more drinks on 1 occasion? Less than monthly [facility] How hard is it for y ou to pay for the very basics like food, housing, medical care, and heating Not hard at all [facility] Do you feel stress - tense, restless, nervous, or anxious, or unable to sleep at night because your mind is troubled all the time - these days [OSQ] Not at all [facility] (I/We) worried sami er (my/our) food would run out before (I/we) got money to buy more. Never true [facility] In the past 12 month s, was there a time when you were not able to pay the mortgage or rent on time? No [facility] Tobacco smoking status No Smokin g Status Entered [facility] How many standard dr inks containing alcohol do you have on a typical day? 1 or 2 [facility] How often do you hav e 6 or more drinks on 1 occasion? Never [facility] Do you feel stress - tense, restless, nervous, or anxious, or unable to sleep at night because your mind is troubled all the time - these days [OSQ] To some extent [facility] Start: 08-07-2024 Gender identity Identifies as female gender (finding) [facility] Goals Date Patient Goal Desired Activity /State Mental Status Date Assessment Result Facility 03-05-2023 Cognitive function Voice/Name;Touch/Guevara arellano [facility] Work Phone: Clinical Notes 07-25-2022 to 05-04-2025 Note Date & Type Note Facility 05-04-2025 Progress note [facility] 05-01-2025 Note HNO ID: [id number] Author: CAPRI HERNANDEZ RDMS Service: ? Author Type: Target Worker Type: Progress Notes Filed: 05/01/2025 13:18 Note Text: Radiology Service Progress Note PATIENT NAME: Kim Lott DATE OF SERVICE: May 01, 2025 TIME: 1:18 PM PATIENT IDENTITY VERIFICATION COMPLETED USING TWO (2) IDENTIFIERS: Name and Date of confirmed by patient verbally. FALL SCREENING: Has the patient had 2 falls in the last year or 1 fall with injury or currently using an Ambulatory Assistive Device (Walker, Cane, Wheelchair, Crutches, etc.)? No PATIENT GENDER DATA: Assigned female at . status: : Yes. Internal Quality Check OK. Reference Range: Negative Radiologist notified: yes status: NO. PATIENT RELEVANT IMPLANT DATA REVIEWED: Not Applicable PATIENT PRESENTS WITH AN IMPLANTABLE OR ATTACHED UROLOGY PHYSICIAN ASSISTANT: No RADIOLOGY DEPARTMENT: Ultrasound PERIPHERAL IV DATA: Not applicable SIGNED BY: Capri Hernandez RDMS May 01, 2025 1:18 PM [facility] 04-28-2025 Evaluation note Diagnosis Onset Date Resolution Amenorrhea acute March 1:55pm Bicornate uterus acute Septembe r 2024 1:55pm Lulu positive acute April 28, 2025 1:55pm Family history of ITP acute Sep tember 2024 1:55pm History of human papilloma virus acute April 28, 2025 1:55pm History of miscarriage, currently acute March 1:55pm Hx of section acute Se ptember 2024 1:55pm Hx of depression, currently acute April 28, 2025 1:55pm acute March 1:55pm Supervision of high-risk acute April 282024 1:55pm Amenorrhea acute May 04 025 9:08am Bicornate uterus acute May 04, 2025 9:08am Lulu positive acute May 042024 9:08am Family history of ITP acute Oct brandin2024 9:08am History of human papilloma virus acute May 04 9:08am History of miscarriage, currently acute May 04, 2025 9:08am Hx of section acute Oc 2024 9:08am Hx of depression, currently acute May 04 9:08am acute May 04 025 9:08am Supervision of high-risk acute May 04, 2025 9:08am [facility] Work Phone: [phone]) 313-389009-30-2025 Progress [facility] [address] [place] [address], [address] [place] [address] OFFICE VISIT Date of Service: 04/28/25 MR#: [id number] Acct: [id number] Name: KIM LOTT Rep # : [id number] : 1995 Provider: Dr. Rhina Massey DO Age/Sex: 30/F Location: [facility] Status: Signed Intake Vital Signs 04/01/24 13:15 04/28/25 14:01 Height 5 ft 7 in 5 ft 7 in Weight: 138 lb 6 oz BMI 21.7 BP 120/80 Intake Visit Reasons: *EST* NOB US#1 04/01/25 [facility] 11/27/25 Chief Complaint: New OB Molasses Preparer Required: No Is patient in pain?: No Allergies pollen extracts Allergy (Verified 04/28/25 13:59) Unknown Medications ?Medication ?Instructions ?Recorded ?Confirmed ?Type multivitamin no.47-iron fum 27 cap PO 04/16/25 5 History mg-folate no.1 1 mg-dha 300 mg capsule (PNV-DHA) Last Menstrual Period: 06/03/23 Have you fallen in the past year?: No PFSH PFSH Medical History Bicornate uterus History of miscarriage, currently Supervision of high-risk contractions Abnormal Pap smear of cervix Seasonal allergies Raynauds disease Non-smoker Acute bacterial conjunctivitis Influenza A Surgical History Hx of section H/O dilation and curettage History of wisdom tooth extraction (~12/2021) History of appendectomy (~2003) Family History Mother Hypertension Hypothyroidism Social History adopted: No household members: spouse and children housing: house number of children: 1 current occupational status: employed 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 occupational exposures/hazards: No pets and animals: Yes pets and animals: dog(s) history of recent travel: Yes ( -January, -December) out of state: Yes out of country: No sexually active: Yes Smoking Status: Never smoker alcohol intake: former year quit: 2024 substance use type: does not use well-balanced diet: about half the time caffeine: No eating out: 1-3 times/week during the past year weight has: decreased > 10 lbs what type of physical activity do you participate in: walking frequency: 1-2 times per week duration: 15-30 minutes/day juan daniel/caodaism: [employer] seatbelt use: always do you feel safe at home: Yes additional social history: Medardo- Mophie History 3 Elective abortions Hx Para 1 Spontaneous abortions 1 Hx # Term Pregnancies Ectopic pregnancies Hx # Pregnancies Multiple births # of living children 1 Past Pregnancies Del. Date Name GA/Weeks Outcome Route Bth Weight Gen Labor Lgth Anesthesia Del Locatn Provider FOB 03/05/23 miscarriage 13 spontaneous 02/19/24 Sundeep 37 live - full term 7lbs Male sp inal [facility] Delivery Date: 03/05/23 Last Updated by: Gini Schuler D&C Delivery Date: 02/19/24 Last Updated by: Kaitlynn Rousseau, RN primary section for breech HPI *EST* NOB US#1 04/01/25 [facility] 11/27/25 Details: KIM LOTT is a 30 year old who presents for New OB visit. OB Visit [facility] Calculator Estimated Delivery Date Method Current WG Current Estimate 12/02/25 Ultrasound #2 8w 6d Other Estimates 11/27/25 Ultrasound #1 9w 4d Comments: HIV: Urine Culture: Sequential Screen: NIPT Screen: Estimated Due Date: 11/27/25 Expected Delivery Route/Plan for repeat cs with JV at 39 weeks Specific Issue/Plans Covid status: [] Flu vaccine: [] Tdap vaccine: [] Rhogam: [] LARC form signed: [] Problem list reviewed and updated with the most current plan of care details and appropriate ordersplaced. Relevant counseling for the gestational age provided. Continue routine care and follow up unless otherwise noted in visit notes/problem list details Initial Weight: Not Recorded Date -?-?-?-?-?-?-?-?-?-?-?-?- EGA Weight BP Urine Prot -?-?-?-?-?-?-?-?-?-?-?-?- Glucose FHR FuHt Pres Dilation -?-?-?-?-?-?-?-?-?-?-?-?- Effaced St Visit Note 04/28/25 -?-?-?-?-?-?-?-?-?-?-?-?- 8w 6d 138 lb 6 oz 120/80 -?-?-?-?-?-?-?-?-?-?-?-?- 188 -?-?-?-?-?-?-?-?-?-?-?-?- JV- CRL still co nsistent with last ultrasound. [facility] 12/02/24. declines NIPT Menstrual History Last Menstrual Period: 06/03/23 On hormonal BC at conception: No Antepartum Record Genetic Screening: Congenital Heart Defect: Other, Neural Tube Defect: Other, Hemoglobinopathy Or Carrier: Partner (Father ITP), Cystic Fibrosis: Other, Chromosome Abnormality: Other, Osman-Sachs: Other, Hemophilia: Other, Intellectual Disability/Autism: Other, Recurrent Loss/Stillbirth: Other, Other Structural Defect: Other, Other Genetic Disease: Other and Maternal Metabolic Disorder: Other Infection History: Live with someone with TB or Exposed to TB: No, Patient or Partner has history of Genital Herpes: No, Rash or Viral illness since last mentrual period: Yes (poison derek 2 weeks ago), Prior GBS-Infected child: No, History of STD: Yes (HPV 2019, colposcopy nml, Pap negative since), HIV Infection: No, History of Hepatitis: No, Recent travel outside of [place]: No, Concern for hepatitis exposure: No, Varicella immune: Yes (immune-virus) and Covid Vaccinated: Yes (Pfizer, No Boosters) Medical History Medical History: Negative: Diabetes, Hypertension, Heart disease, Auto-immune disorder, Kidney disease/UTI, Neurologic/epilepsy, Psychiatric, Depression/ depression, Hepatitis/liver disease, Varicosities/phlebitis, Thyroid dysfunction, Trauma/domestic violence, History of blood transfusions, D (Rh) Sensitized, Pulmonary (e.g.,TB,Asthma), Seasonal allergies, Drug/latex allergies/reactions, Breast, Tie Up Worker surgery, Operations/hospitalizations, Anesthetic complications, History of abnormal pap, Uterine anomaly/josé miguel, Infertility, Anti-retroviral treatment, Relevant family history and Other ACOG First Trimester First Trimester: Desire for , Alcohol, Tobacco Cessation, Illicit/Recreational Drug/Substance Use, Intimate Partner Violence, Barriers to care, Unstable Housing, Communication Barriers, Environmental/Work Hazards, Anticipated Course of Care, Nurtrition and weight gain, Toxoplasmosis Precations, Use of Any medications, Sexual activity, Exercise, Dental Care, Sauna/Hot tub use, Seat Belt use, Childbirth classes/Hospital facilities, Travel, Indications for Ultrasound and Screening for Aneuploidy Second Trimester Second Trimester: Signs and Symptoms of Labor, Selecting a care provider, Reproductive Life Planning & Contreception and Care Planning; Discussed Tobacco Cessation, Discussed Depression/Anxiety and Discussed Intimate Partner Violence Third Trimester Third Trimester: Pain Management Plans, Labor support person(s), Immediate Larc, Circumcision preference, Signs and Symptoms of Preeclampsia, Feeding, [place] Education and Family Medical Leave or Disability Forms ROS Const Reports system reviewed and no additional complaints, except as documented, Reports fatigue and Denies fever(s) Eyes Reports system reviewed and no additional complaints, except as documented ENT Reports system reviewed and no additional complaints, except as documented Card Denies chest pain and Denies dyspnea Resp Reports system reviewed and no additional complaints, except as documented, Denies cough and Deniesdyspnea GI Denies abdominal pain and Reports nausea Reports system reviewed and no additional complaints, except as documented Musc Reports system reviewed and no additional complaints, except as documented Skin/Breast Reports system reviewed and no additional complaints, except as documented Neuro Yes system reviewed and no additional complaints, except as documented Psych Reports system reviewed and no additional complaints, except as documented Endo Reports system reviewed and no additional complaints, except as documented and Reports fatigue Exam Const General: healthy appearing, comfortable and no acute distress Orientation: alert [facility] Head: normal to inspection, normocephalic and atraumatic Ears: hearing grossly normal bilaterally and external ears normal Nose: external nose normal and nares normal Mouth: oral mucosae normal Teeth and gingiva: dentition normal Eyes General: appearance normal, both eyes and all related structures Neck Neck: normal visual inspection, no lymphadenopathy and supple Thyroid: thyroid normal Chest Chest palpation & inspection: normal inspection of the chest Breast inspection: normal inspection of the breasts and normal inspection of the axillae Breast palpation: normal palpation of the breasts and normal palpation of the axillae Resp Effort & Inspection: normal respiratory effort GI Inspection: normal to inspection Palpation: soft and no hepatosplenomegaly General: bladder normal to palpation External Female Exam: normal external appearance and normal appearance of the urethra Urethra: normal appearance of the urethra Speculum Exam - Vagina: normal appearance of the vagina and normal vaginal discharge Speculum Exam - Cervix: normal appearance of the cervix Bimanual Exam- Vagina & Uterus: normal bimanual exam, bladder normal to palpation, non-tender and other Bimanual Exam- Adnexa, other: non-tender Skin General: no rashes or lesions noted Neuro Motor: muscle tone normal throughout and no movement abnormalities noted Extrem General: normal to inspection and full ROM Supplemental Info ACOG book given and patient encouraged to read about nutrition, exercise, weight gain, and food avoidance in . Coding Level of Care Code OB Routine Diagnoses History of miscarriage, currently O09.299 Lulu positive R76.8 Supervision of high-risk O09.90 9 weeks gestation of Z3A.09 Weeks of gestation: 9 weeks Bicornate uterus Q51.3 Hx of section Z98.891 Hx of depression, currently O99.891; Z86.59 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 Family history of ITP Z83.2 Amenorrhea N91.2 Assessment and Plan Assessment and Plan (1) History of miscarriage, currently : Status: Acute (2) Lulu positive: Status: Acute Comment: *PRIOR * Son had Lulu (3) Supervision of high-risk : Status: Acute Comment: , ONDINA 11/27/25, PC Sundeep, Medardo (4) : Status: Acute Qualifiers: Weeks of gestation: 9 weeks Qualified Code(s): Z3A.09 - 9 weeks gestation of Comment: declined NIPT & Carrier testing (5) Bicornate uterus: Status: Acute (6) Hx of section: Status: Acute (7) Hx of depression, currently : Status: Acute (8) History of human papilloma virus: Status: Acute Comment: +HPV 2019, colp nml, negative since (9) Family history of ITP: Status: Acute Comment: Pt's Father in law (10) Amenorrhea: Status: Acute Comment: HCGx2 Orders: Orders CBC W/Diff, Automated 04/16/25 O09.90 - Supervision of high risk , unspecified, unspecified trimester Type & Screen 04/16/25 O09.90 - Supervision of high risk , unspecified, unspecified trimester Rubella IgG 04/16/25 O09.90 - Supervision of high risk , unspecified, unspecified trimester Hepatitis C Antibody 04/16/25 O09.90 - Supervision of high risk , unspecified, unspecifiedtrimester Hepatitis B Surface Antigen 04/16/25 O09.90 - Supervision of high risk , unspecified, unspecified trimester Culture, Urine 04/16/25 O09.90 - Supervision of high risk , unspecified, unspecified trimester Syphilis Antibodies 04/16/25 O09.90 - Supervision of high risk , unspecified, unspecified trimester Chlamydia/GC SEPIDEH aptima 04/16/25 O09.90 - Supervision of high risk , unspecified, unspecified trimester HIV 04/16/25 O09.90 - Supervision of high risk , unspecified, unspecified trimester Plan Patient oriented to practice and discussed care expectations and screenings. ACOG book offered to patient. Discussed routine and specially indicated labs if needed- patient consents to testing. See problem list details for plan information. Optional screening including maternal carrier screenings, neural tube defect screening, genetic screening options including quad screen, nuchal translucency, sequential screening, and NIPT screening offered to patient and patient chose: none Clinical Quality Measures Falls Risk Screening/Assistive Devices Have you fallen in the past year?: No 04/28/25 1443 e Yolis DO> Date _ Nicolle Massey DO Cosigner Signature: Date (if applicable) CC: ~ [facility]09-30-2025 Progress note Author Nicolle Lagos [facility] Services Note Date/Time April 28, 2025 2:43pm [facility] [address], [address] [place] [address] OFFICE VISIT Date of Service: 04/28/25 MR#: [id number] Acct: [id number] Name: IKM LOTT Rep # : [id number] : 1995 Provider: Dr. Rhina Massey DO Age/Sex: 30/F Location: [facility] Status: Signed Intake Vital Signs 04/01/24 13:15 04/28/25 14:01 Height 5 ft 7 in 5 ft 7 in Weight: 138 lb 6 oz BMI 21.7 BP 120/80 Intake Visit Reasons: *EST* NOB US#1 04/01/25 ONDINA 11/27/25 Chief Complaint: New OB Molasses Preparer Required: No Is patient in pain?: No Allergies pollen extracts Allergy (Verified 04/28/25 13:59) Unknown Medications ?Medication ?Instructions ?Recorded ?Confirmed ?Type multivitamin no.47-iron fum 27 cap PO 04/16/25 5 History mg-folate no.1 1 mg-dha 300 mg capsule (PNV-DHA) Last Menstrual Period: 06/03/23 Have you fallen in the past year?: No PFSH PFSH Medical History Bicornate uterus History of miscarriage, currently Supervision of high-risk contractions Abnormal Pap smear of cervix Seasonal allergies Raynauds disease Non-smoker Acute bacterial conjunctivitis Influenza A Surgical History Hx of section H/O dilation and curettage History of wisdom tooth extraction (~12/2021) History of appendectomy (~2003) Family History Mother Hypertension Hypothyroidism Social History adopted: No household members: spouse and children housing: house number of children: 1 current occupational status: employed 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 occupational 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/hazards: No pets and animals: Yes pets and animals: dog(s) history of recent travel: Yes (, ) out of state: Yes out of country: No sexually active: Yes Smoking Status: Never smoker alcohol intake: former year quit: 2024 substance use type: does not use well-balanced diet: about half the time caffeine: No eating out: 1-3 times/week during the past year weight has: decreased > 10 lbs what type of physical activity do you participate in: walking frequency: 1-2 times per week duration: 15-30 minutes/day juan daniel/caodaism: [employer] seatbelt use: always do you feel safe at home: Yes additional social history: Medardo- Mophie History 3 Elective abortions Hx Para 1 Spontaneous abortions 1 Hx # Term Pregnancies Ectopic pregnancies Hx # Pregnancies Multiple births # of living children 1 Past Pregnancies Del. Date Name GA/Weeks Outcome Route Bth Weight Infant Gen Labor Lgth Anesthesia Del Locatn Provider FOB 03/05/23 miscarriage 13 spontaneous 02/19/24 Sundeep 37 live - full term 7lbs Male sp inal [facility] JV Medardo Delivery Date: 03/05/23 Last Updated by: Gini Schuler D&C Delivery Date: 02/19/24 Last Updated by: Kaitlynn Rousseau, RN primary section for breech HPI *EST* NOB US#1 04/01/25 ONDINA 11/27/25 Details: KIM LOTT is a 30 year old who presents for New OB visit. OB Visit ONDINA Calculator Estimated Delivery Date Method Current WG Current Estimate 12/02/25 Ultrasound #2 8w 6d Other Estimates 11/27/25 Ultrasound #1 9w 4d Comments: HIV: Urine Culture: Sequential Screen: NIPT Screen: Estimated Due Date: 11/27/25 Expected Delivery Route/Plan for repeat cs with JV at 39 weeks Specific Issue/Plans Covid status: [] Flu vaccine: [] Tdap vaccine: [] Rhogam: [] LARC form signed: [] Problem list reviewed and updated with the most current plan of care details and appropriate orders placed. Relevant counseling for the gestational age provided. Continue routine care and follow up unless otherwise noted in visit notes/problem list details Initial Weight: Not Recorded Date -?-?-?-?-?-?-?-?-?-?-?-?- EGA Weight BP Urine Prot -?-?-?-?-?-?-?-?-?-?-?-?- Glucose FHR FuHt Pres Dilation -?-?-?-?-?-?-?-?-?-?-?-?- Effaced St Visit Note 04/28/25 -?-?-?-?-?-?-?-?-?-?-?-?- 8w 6d 138 lb 6 oz 120/80 -?-?-?-?-?-?-?-?-?-?-?-?- 188 -?-?-?-?-?-?-?-?-?-?-?-?- JV- CRL still co nsistent with last ultrasound. ONDINA 12/02/24. declines NIPT Menstrual History Last Menstrual Period: 06/03/23 On hormonal BC at conception: No Antepartum Record Genetic Screening: Congenital Heart Defect: Other, Neural Tube Defect: Other, Hemoglobinopathy Or Carrier: Partner (Father ITP), Cystic Fibrosis: Other, Chromosome Abnormality: Other, Osman-Sachs: Other, Hemophilia: Other, Intellectual Disability/Autism: Other, Recurrent Loss/Stillbirth: Other, Other Structural Defect: Other, Other Genetic Disease: Other and Maternal Metabolic Disorder: Other Infection History: Live with someone with TB or Exposed to TB: No, Patient or Partner has history of Genital Herpes: No, Rash or Viral illness since last mentrual period: Yes (poison derek 2 weeks ago), Prior GBS-Infected child: No, History of STD: Yes (HPV 2019, colposcopy nml, Pap negative since), HIV Infection: No, History of Hepatitis: No, Recent travel outside of [place]: No, Concern for hepatitis exposure: No, Varicella immune: Yes (immune-virus) and Covid Vaccinated: Yes (Pfizer, No Boosters) Medical History Medical History: Negative: Diabetes, Hypertension, Heart disease, Auto-immune disorder, Kidney disease/UTI, Neurologic/epilepsy, Psychiatric, Depression/ depression, Hepatitis/liver disease, Varicosities/phlebitis, Thyroid dysfunction, Trauma/domestic violence, History of blood transfusions, D (Rh) Sensitized, Pulmonary (e.g.,TB,Asthma), Seasonal allergies, Drug/latex allergies/reactions, Breast, Tie Up Worker surgery, Operations/hospitalizations, Anesthetic complications, History of abnormal pap, Uterine anomaly/josé miguel, Infertility, Anti-retroviral treatment, Relevant family history and Other ACOG First Trimester First Trimester: Desire for , Alcohol, Tobacco Cessation, Illicit/Recreational Drug/Substance Use, Intimate Partner Violence, Barriers to care, Unstable Housing, Communication Barriers, Environmental/Work Hazards, Anticipated Course of Care, Nurtrition and weight gain, Toxoplasmosis Precations, Use of Any medications, Sexual activity, Exercise, Dental Care, Sauna/Hot tub use, Seat Belt use, Childbirth classes/Hospital facilities, Travel, Indications for Ultrasound and Screening for Aneuploidy Second Trimester Second Trimester: Signs and Symptoms of Labor, Selecting a care provider, Reproductive Life Planning & Contreception and Care Planning; Discussed Tobacco Cessation, Discussed Depression/Anxiety and Discussed Intimate Partner Violence Third Trimester Third Trimester: Pain Management Plans, Labor support person(s), Immediate Larc, Circumcision preference, Signs and Symptoms of Preeclampsia, Infant Feeding, Education and Family Medical Leave or Disability Forms ROS Const Reports system reviewed and no additional complaints, except as documented, Reports fatigue and Denies fever(s) Eyes Reports system reviewed and no additional complaints, except as documented ENT Reports system reviewed and no additional complaints, except as documented Card Denies chest pain and Denies dyspnea Resp Reports system reviewed and no additional complaints, except as documented, Denies cough and Denies dyspnea GI Denies abdominal pain and Reports nausea Reports system reviewed and no additional complaints, except as documented Musc Reports system reviewed and no additional complaints, except as documented Skin/Breast Reports system reviewed and no additional complaints, except as documented Neuro Yes system reviewed and no additional complaints, except as documented Psych Reports system reviewed and no additional complaints, except as documented Endo Reports system reviewed and no additional complaints, except as documented and Reports fatigue Exam Const General: healthy appearing, comfortable and no acute distress Orientation: alert [facility] Head: normal to inspection, normocephalic and atraumatic Ears: hearing grossly normal bilaterally and external ears normal Nose: external nose normal and nares normal Mouth: oral mucosae normal Teeth and gingiva: dentition normal Eyes General: appearance normal, both eyes and all related structures Neck Neck: normal visual inspection, no lymphadenopathy and supple Thyroid: thyroid normal Chest Chest palpation & inspection: normal inspection of the chest Breast inspection: normal inspection of the breasts and normal inspection of the axillae Breast palpation: normal palpation of the breasts and normal palpation of the axillae Resp Effort & Inspection: normal respiratory effort GI Inspection: normal to inspection Palpation: soft and no hepatosplenomegaly General: bladder normal to palpation External Female Exam: normal external appearance and normal appearance of the urethra Urethra: normal appearance of the urethra Speculum Exam - Vagina: normal appearance of the vagina and normal vaginal discharge Speculum Exam - Cervix: normal appearance of the cervix Bimanual Exam- Vagina & Uterus: normal bimanual exam, bladder normal to palpation, non-tender and other Bimanual Exam- Adnexa, other: non-tender Skin General: no rashes or lesions noted Neuro Motor: muscle tone normal throughout and no movement abnormalities noted Extrem General: normal to inspection and full ROM Supplemental Info ACOG book given and patient encouraged to read about nutrition, exercise, weight gain, and food avoidance in . Coding Level of Care Code OB Routine Diagnoses History of miscarriage, currently O09.299 Lulu positive R76.8 Supervision of high-risk O09.90 9 weeks gestation of Z3A.09 Weeks of gestation: 9 weeks Bicornate uterus Q51.3 Hx of section Z98.891 Hx of depression, currently O99.891; Z86.59 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 Family history of ITP Z83.2 Amenorrhea N91.2 Assessment and Plan Assessment and Plan (1) History of miscarriage, currently : Status: Acute (2) Lulu positive: Status: Acute Comment: *PRIOR * Son had Lulu (3) Supervision of high-risk : Status: Acute Comment: , ONDINA 11/27/25, PC Sundeep, Medardo (4) : Status: Acute Qualifiers: Weeks of gestation: 9 weeks Qualified Code(s): Z3A.09 - 9 weeks gestation of Comment: declined NIPT & Carrier testing (5) Bicornate uterus: Status: Acute (6) Hx of section: Status: Acute (7) Hx of depression, currently : Status: Acute (8) History of human papilloma virus: Status: Acute Comment: +HPV 2019, colp nml, negative since (9) Family history of ITP: Status: Acute Comment: Pt's Father in law (10) Amenorrhea: Status: Acute Comment: HCGx2 Orders: Orders CBC W/Diff, Automated 04/16/25 O09.90 - Supervision of high risk , unspecified, unspecified trimester Type & Screen 04/16/25 O09.90 - Supervision of high risk , unspecified, unspecified trimester Rubella IgG 04/16/25 O09.90 - Supervision of high risk , unspecified, unspecified trimester Hepatitis C Antibody 04/16/25 O09.90 - Supervision of high risk , unspecified, unspecified trimester Hepatitis B Surface Antigen 04/16/25 O09.90 - Supervision of high risk , unspecified, unspecified trimester Culture, Urine 04/16/25 O09.90 - Supervision of high risk , unspecified, unspecified trimester Syphilis Antibodies 04/16/25 O09.90 - Supervision of high risk , unspecified, unspecified trimester Chlamydia/GC SEPIDEH aptima 04/16/25 O09.90 - Supervision of high risk , unspecified, unspecified trimester HIV 04/16/25 O09.90 - Supervision of high risk , unspecified, unspecified trimester Plan Patient oriented to practice and discussed care expectations and screenings. ACOG book offered to patient. Discussed routine and specially indicated labs if needed- patient consents to testing. See problem list details for plan information. Optional screening including maternal carrier screenings, neural tube defect screening, genetic screening options including quad screen, nuchal translucency, sequential screening, and NIPT screening offered to patient and patient chose: none Clinical Quality Measures Falls Risk Screening/Assistive Devices Have you fallen in the past year?: No 04/28/25 1443 <Electronically signed by Nicolle Mullins DO> Date _ Nicolle Massey DO Cosigner Signature: Date (if applicable) CC: ~ [facility] [employer] Work Phone: 1(833) 958-920209-30-2025 NoteHNO ID: [id number] Author: LULI PLUMMER APRN.[facility] Service: ? Author Type: Nurse Practitioner Type: Progress Notes Filed: 04/28/2025 12:50 Note Text: This is a 30 year old female who presents today with: Patient presents with: Follow Up: Follow up on enlarged lymph node HISTORY OF PRESENT ILLNESS: Kim Lott is a 30 year old female. Patient presents with: Follow Up: Follow up on enlarged lymph node The patient is a 30-year-old female presenting for evaluation of a persistent neck mass. Neck Mass: - Noted a decrease in size of the neck mass, but it is still palpable, especially when turning her head. - Completed a course of amoxicillin, finishing on Sunday. - Denies pain with light touch; reports soreness with aggressive pressure. - Denies headache, fever, chills, or periods of profuse sweating. - Completed all antibiotic : - Currently ; experiencing nausea. - Reports this is a lot calmer compared to her first, with less nausea and dry heaving. - Has an OB appointment scheduled at 1400 today. - Has a son at home; had a late miscarriage before her son. PAST MEDICAL HISTORY: PAST MEDICAL HISTORY Diagnosis Date Cervical high risk HPV (human papillomavirus) test positive 2017 PAST SURGICAL HISTORY Procedure Laterality Date APPENDECTOMY HX 2004 SNGL 02/19/2024 DANDC SUCTION 03/05/2023 missed ab VAGINOSCOPY 2018 ALLERGIES Pollen Extracts MEDICATIONS No current outpatient medications on file. No current facility-administered medications for this visit. FAMILY HISTORY Problem Relation Age of Onset Hypothyroidism Mother No Known Problems Father No Known Problems Brother No Known Problems Brother Cancer Maternal Grandfather SOCIAL HISTORY[1] REVIEW OF SYSTEMS Head: (-) headache Neck: (+) left neck mass Gastrointestinal: (+) nausea EXAM: BP 126/68 (BP Site: Left Arm, BP Position: Sitting) Pulse 115 Wt 62.1 kg (137 lb) LMP 05/30/2023 (Approximate) SpO2 98% BMI 21.46 kg/m? PHYSICAL EXAM: GENERAL: NAD, alert and oriented. SKIN: Unremarkable, no rash or skin lesions. HEAD: Normocephalic. EARS: External ears normal, canals clear, TM's normal. NOSE/SINUSES: Nares boggy and pink. Septum midline. OROPHARYNX: Lips, mucosa, and tongue normal, good dentition. No oral lesions noted. NECK: Supple, no lymphadenopathy, normal thyroid, no carotid bruits. Palpable gland noted- blueberry sized, smaller than previous exam, non-tender to light touch at angle of left TMJ. LABS: ASSESSMENT/PLAN: 1. Swollen lymph nodes (R59.9) - Lymphadenopathy has decreased in size but is still palpable; no associated fever, chills, or diaphoresis. - Completed course of amoxicillin on Sunday. - Order ultrasound to further evaluate persistent lymphadenopathy; discussed that this is safe during . Discussed treatment plan and patient voices understanding. Patient's questions answered appropriately. Medications and potential side effects were discussed and patient voices understanding. Return to the office as scheduled or as needed for worsening/no improvement. Luli Plummer APRN.FRENCH PROFESSOR [1] Social History Tobacco Use Smoking status: Never Smokeless tobacco: Never Vaping Use Vaping status: Never Used Substance Use Topics Alcohol use: Yes Comment: occasional [facility]: [facility] NoteHNO ID: [id number] Author: LULI PLUMMER APRN.FRENCH PROFESSOR Service: ? Author Type: Nurse Practitioner Type: Progress Notes Filed: 04/16/2025 08:25 Note Text: This is a 29 year old female who presents today with: Patient presents with: Mass: Swollen lymph node on left side of neck for 3-4 weeks HISTORY OF PRESENT ILLNESS: Kim Lott is a 29 year old female. Patient presents with: Mass: Swollen lymph node on left side of neck for 3-4 weeks The patient is a 29-year-old female presenting for evaluation of a 3 to 4-week history of right cervical lymphadenopathy. Swollen Lymph Node: - Kim Lott noticed a swollen lymph node on the neck 3-4 weeks ago. - No change in size; not resolving. - Mild tenderness with repeated palpation. - Kim denies additional lumps, bumps, or swelling in the neck. - Kim denies fever, chills, headaches, changes in hearing or vision, dyspnea, cough, wheezing, chest pain, leg swelling, palpitations, dysuria, hematuria, joint pain, excessive thirst, syncope, seizures, tremors, or suicidal ideation. - Recent increase in nasal congestion over the past week. - Recent episode of poison derek 2 weeks ago. - Kim is unsure about recent weight changes. - Currently ; experiencing nausea. PAST MEDICAL HISTORY: PAST MEDICAL HISTORY Diagnosis Date Cervical high risk HPV (human papillomavirus) test positive 2017 PAST SURGICAL HISTORY Procedure Laterality Date APPENDECTOMY HX 2004 SNGL 02/19/2024 DANDC SUCTION 03/05/2023 missed ab VAGINOSCOPY 2017 ALLERGIES Pollen Extracts MEDICATIONS No current outpatient medications on file. No current facility-administered medications for this visit. FAMILY HISTORY Problem Relation Age of Onset Hypothyroidism Mother No Known Problems Father No Known Problems Brother No Known Problems Brother Cancer Maternal Grandfather SOCIAL HISTORY[1] REVIEW OF SYSTEMS Constitutional: (-) fever, (-) chills Head: (-) headaches Eyes: (-) vision changes Ears/Nose/Mouth/Throat: (+) rhinorrhea, (-) hearing loss, (-) ear pain, (-) sore throat Cardiovascular: (-) chest pain, (-) palpitations, (-) leg edema, (-) orthopnea Respiratory: (-) dyspnea, (-) cough, (-) wheezing Gastrointestinal: (+) nausea, (-) vomiting Genitourinary: (-) dysuria, (-) hematuria Musculoskeletal: (-) joint pain, (-) joint swelling Hematologic/Lymphatic: (+) cervical lymphadenopathy, (+) cervical lymph node tenderness EXAM: BP 102/56 Pulse 87 Wt 62.6 kg (138 lb) LMP 05/30/2023 (Approximate) SpO2 100% BMI 21.61 kg/m? PHYSICAL EXAM: GENERAL: NAD, alert and oriented. SKIN: Unremarkable, no rash or skin lesions. HEAD: Normocephalic. EARS: External ears normal, canals clear, TM's normal. NOSE/SINUSES: Nares pink and smooth- boggy. Septum midline. No sinus tenderness. OROPHARYNX: Lips, mucosa, and tongue normal, good dentition. No oral lesions noted. NECK: Supple, left side of neck just below ear lobe- small bllueberry sized lymphadenopathy, normal thyroid, no carotid bruits. Palpable lymph node noted, approximately the size of a small blueberry, firm but not enlarged. LUNGS: Clear to auscultation bilaterally, no wheezes/rhonchi/rales. HEART: Regular rate and rhythm, no murmurs. No ectopy. EXTREMITIES: Normal, no deformities, no skin discoloration, no edema. NEURO: Awake, alert and oriented x3, cranial nerves II-XII grossly intact, normal gait, no involuntary motions. LABS: ASSESSMENT/PLAN: 1. Enlarged lymph node in neck (R59.0) - Single, firm, non-tender cervical lymph node present for 3-4 weeks; no associated fever, chills, or systemic symptoms. - Start amoxicillin PO TID for 10 days. - Use plain saline nasal spray at least TID while on antibiotics. - Educated on lymph node function, rationale for antibiotics, and typical benign etiology; discussed rare possibility of more serious causes. - Follow-up in 10 days; if lymph node persists, will order ultrasound. Discussed treatment plan and patient voices understanding. Patient's questions answered appropriately. Medications and potential side effects were discussed and patient voices understanding. Return to the office as scheduled or as needed for worsening/no improvement. Luli Plummer, SECURITY ASSURANCE SPECIALIST.FRENCH PROFESSOR [1] Social History Tobacco Use Smoking status: Never Smokeless tobacco: Never Vaping Use Vaping status: Never Used Substance Use Topics Alcohol use: Yes Comment: occasional Drug [facility]: [facility] Radiology Diagnostic study note [facility] Imaging Services [address] [id number] Transvaginal w/Preg US MR#: [id number] Acct: [id number] Name: KIM LOTT Rep #: : [id number] F 29 From: José Domínguez MD PCP: Dr. Boston Lopez MD Status: REG C LUPE Study:Transvaginal w/Preg US Date of Exam: 04/13/25 Exam# [id number] Ordering Dr: Kari Mcallister MD PROCEDURE: TRANSVAGINAL W/PREG US 04/13/2025 REASON FOR EXAM: VIABILITY TECHNIQUE: Procedure Code: USTVAGP Modality: US Procedure: TRANSVAGINAL W/PREG US COMPARISON: Prior study dated April 01, 2025. FINDINGS: Comments: LMP is unknown. Number of Gestational Sacs: 1 Gestational Sac Shape: Normal Number of Fetuses: 1 Heart Rate: 152 beats per minute (average) Yolk Sac: Present and unremarkable. Placenta: Presently not well-visualized Amniotic Fluid Volume: Subjectively normal for gestational age. Uterine Abnormalities: Maternal uterus is unremarkable. Ovaries / Adnexa: Both maternal ovaries are visualized and unremarkable. DIMENSIONS: Parameter Measurement / EGA [place] Rump Length: 9 mm/7 weeks and 0 days Gestational Sac: 1.5 cm/6 weeks and 2 days Yolk Sac: 4 mm/ ESTIMATED GESTATIONAL AGE: By Ultrasound: 6 weeks and 5 days ESTIMATED DATE OF DELIVERY: By Ultrasound: December 02, 2025 US/Transvaginal w/Preg US IMPRESSION: Single live intrauterine gestation with mean gestational age of 6 weeks and 5 days. Reading Location: [facility] CC: Dr. Kari Vanegas MD; Dr. Boston Lopez MD ~ Seasonal Warehouse Associate: Signed [facility]09-05-2025 Radiology Diagnostic study note [facility] Imaging Services [address] [place], [place] [id number] Transvaginal w/Preg US MR#: [id number] Acct: [id number] Name: KIM LOTT Rep #: : 1995 F 29 From: José Domínguez MD PCP: Dr. Boston Lopez MD Status: ROMA BAUM Study:Transvaginal w/Preg US Date of Exam: 04/01/25 Exam# [id number] Ordering Dr: Kari Mcallister MD PROCEDURE: TRANSVAGINAL W/PREG US 04/01/2025 REASON FOR EXAM: DATING TECHNIQUE: Procedure Code: USTVAGP Modality: US Procedure: TRANSVAGINAL W/PREG US COMPARISON: None FINDINGS: Comments: LMP: Unknown Number of Gestational Sacs: 1 Gestational Sac Shape: The gestational sac is seen within the left horn of a bicornuate uterus. Number of Fetuses: 1 Heart Rate: Not visualized. ( Yolk Sac: Not visualized Placenta: Presently not well-visualized Uterine Abnormalities: The uterus measures 8.5 cm 7 cm 4.3 cm. It is bicornuate. Ovaries / Adnexa: Both maternal ovaries are visualized and unremarkable. DIMENSIONS: Parameter Measurement / EGA Gestational Sac: 9.3 mm/5 weeks and 5 days Yolk Sac: Not visualized/ ESTIMATED GESTATIONAL AGE: By Ultrasound: 5 weeks and 5 days ESTIMATED DATE OF DELIVERY: By Ultrasound: November 27, 2025 US/Transvaginal w/Preg US IMPRESSION: Single intrauterine gestational sac within the left horn of the bicornuate uterus. Gestational age of 5 weeks and 5 days. No yolk sac or embryo seen at this time. Serial beta HCG correlation as well as repeat sonogram recommended. [place] Location: [facility] CC: Dr. Kari Vanegas MD; Dr. Boston Lopez MD ~ Seasonal Warehouse Associate: Signed [facility]02-17-2025 Telephone encounter Note* Telephone Encounter - Margaux Giron LPN - 09/15/2024 4:10 PM EST PATIENT NOTIFIED OF SAME. [facility]02-17-2025 Miscellaneous Notes* Telephone Encounter - Margaux Giron LPN - 09/15/2024 4:10 PM EST PATIENT NOTIFIED OF SAME. * Telephone Encounter - Danni Muse LPN - 09/15/2024 1:26 PM EST Left message to call and speak with nurse. * Telephone Encounter - Danni Muse LPN - 09/15/2024 1:25 PM EST ----- Message from Boston Lopez MD sent at 09/15/2024 10:11 AM EST ----- Please let her know her echo is ok. documented in this encounterTrihealth02-17-2025 Telephone encounter Note * Telephone Encounter - Danni Muse LPN - 09/15/2024 1:26 PM EST Left message to call and speak with nurse. [facility]02-17-2025 Telephone encounter Note* Telephone Encounter - Danni Muse LPN - 09/15/2024 1:25 PM EST ----- Message from Boston Lopez MD sent at 09/15/2024 10:11 AM EST ----- Please let her know her echo is ok. [facility]01-29-2025 History of Present illness Narrative* Valeri Marlow, RT(R) - 08/27/2024 2:00 PM EST Radiology Service Progress Note [...] Assigned female at . status: : No status:NO. PATIENT RELEVANT IMPLANT DATA REVIEWED: Not Applicable PATIENT PRESENTS WITH AN IMPLANTABLE OR ATTACHED UROLOGY PHYSICIAN ASSISTANT: No RADIOLOGY DEPARTMENT: General X-ray: Exam(s) Completed: Chest X-Ray PERIPHERAL IV DATA: Not applicable SIGNED BY: RT Mendoza(R) August 27, 2024 1:45 PM documented in this encounterTrihealth01-29-2025 NoteHNO ID: [id number] Author: VALERI MARLOW RT(R) Service: Radiology Author Type: Technologist Type: Progress [...] PATIENT PRESENTS WITH AN IMPLANTABLE OR ATTACHED UROLOGY PHYSICIAN ASSISTANT: No RADIOLOGY DEPARTMENT: General X-ray: Exam(s) Completed: Chest X-Ray PERIPHERAL IV DATA: Not applicable SIGNED BY: RT Mendoza(Fred) August 27, 2024 1:45 [facility]01-29-2025 NoteHNO ID: [id number] Author: BOSTON LOPEZ MD Service: ? Author [...] No history of dysuria, frequency or incontinence COLOR DEVELOPER: Negative for abnormal vaginal bleeding, abnormal vaginal [...] BLOOD COUNT AND DIFFERENTIAL (more content not included)...[facility]01-29-2025 History of Present illness Narrative* Boston Lopez MD - 08/27/2024 12:58 PM EST Patient presents with: Physical HPI: Patient presents [...] any shortness of breath. Mentions back in 2017 or 2018 had odd sensations in her chest where she would feel like there was abubble inside her chest. Taking a deep breath [...] andsocial history today. REVIEW OF SYSTEMS GENERAL: no [...] No history of dysuria, frequency or incontinence COLOR DEVELOPER: Negative for abnormal vaginal bleeding, abnormal vaginal [...] suspicious rashes or lesions/ benign appearing mole onback. Head: Normocephalic, no masses, lesions, tenderness or [...] four weeks or prn. documented in this encounterTrihealth11-07-2024 NoteHNO ID: [id number] Author: JESICA JOHNSON APRN.ROW BOSS Service: ? Author Type: Nurse Specialist Type: Progress Notes Filed: 06/05/2024 14:00 Note Text: DENISA Lott is a 29 year old female who presents with 2 days of symptoms that are worsening. She reports was seen at [facility] clinic at [facility] and advised she may have walking pneumonia. [...] complete if needed/not improving . Jesica Johnson APRN.ROW BOSS Medical Decision Making: Problems: Low: Acute, uncomplicated illness or injury Data: Unique test(s) ordered: 1 Risk: Moderate: Drug management Medical Decision Making Level: 3 - [facility] History of Present illness Narrative* Jesica Johnson APRN.ROW BOSS - 06/05/2024 1:39 PM EST SUBJECTIVE Kim Lott is a 29 year old female who presents with 2 days of symptoms that are worsening. She reports was seen at [facility] at [facility] and advised she may have walking pneumonia. [...] TM - clear with good landmarks, nl lightreflex Nose: clear rhinorrhea, mucosa erythematous and swollen [...] rinse for nasal congestion and drainage. Cough dropsfor cough. Let us know if not feeling improved with these measures. Chest x-ray is ordered, can complete if needed/not improving . Jesica Johnson APRN.ROW BOSS Medical Decision Making: Problems: Low: Acute, uncomplicated illness or injury Data: Unique test(s) ordered: 1 Risk: Moderate: Drug management Medical Decision Making Level: 3 - Low documented in this encounterTrihealth11-05-2024 Telephone encounter Note * Telephone Encounter - Miriam Baez RN - 06/03/2024 3:39 PM EST Patient call in for chest pain when [...] dizzy, cough, difficulty breathing Protocols used: Chest Dagg-JGDDO-IM [facility]11-05-2024 Miscellaneous Notes* Telephone Encounter - Miriam Baez RN - 06/03/2024 3:39 PM EST Patient call in for chest pain when [...] dizzy, cough, difficulty breathing Protocols used: Chest Whcl-BIFBH-ZL documented in this encounterTrihealth01-04-2024 NotePap Smear Specimen AdequacyJanuary 2023 11:59pmComment.Satisfactory for evaluation. Endocervical and/or squamous metaplasticcells (endocervical component)are present.[facility] INTERFACED A#[id number] County Medical CenterComment on above: Satisfactory for evaluation. Endocervical and/or squamous metaplasticcells (endocervical component)are present.08-02-2023 NotePap Smear Specimen Adequacy August 02, 2023 11:59pmComment.Satisfactory for evaluation. Endocervical and/or squamous metaplasticcells (endocervical component)are present.[facility] INTERFACED A#[id number] County Medical CenterComtrinity health [facility] on above:Satisfactory for evaluation. Endocervical and/or squamous metaplasticcells (endocervical component)are present.08-02-2023 NotePap Smear Specimen AdequacyJanuary 2023 11:59pmComment.Satisfactory for evaluation. Endocervical and/or squamous metaplasticcells (endocervical component)are present.[facility] INTERFACED A#[id number] County Medical CenterComment on above:Satisfactory for evaluation. Endocervical and/or squamous metaplasticcells (endocervical component)are present.08-02-2023 NotePap Smear Specimen AdequacyJanuary 2023 11:59pmComment.Satisfactory for evaluation. Endocervical and/or squamous metaplasticcells (endocervical component)are present.[facility] INTERFACED A#[id number] County Medical CenterComment on above:Satisfactory for evaluation. Endocervical and/or squamous metaplasticcells (endocervical component)are present.07-09-2023 Discharge summary Author Sherwin Mendoza [facility] July 09, 2023 4:40pm Note Date/Time July 09, 2023 2:14pm [facility] Medical Records Department [address] [place] [address] Emergency Department Summary 07/09/23 MR#: [id number] Acct: [id number] Name: KIM LOTT Rep #:[id number] : 1995 From: Sherwin Mendoza MD PCP: Dr. Boston [...] intake frequency: a few times a week [facility] ED Constitutional Constitutional ED: Denies chills or [...] Urinalysis is normal. Patient will follow-up with [facility]. If she has further bleeding pain and vomiting or other concerns she should return. Lab Data Attestation: I reviewed the patient's lab results. Labs: Laboratory Results - last 24 hr 07/09/23 15:46 Urine Color Yellow Urine Clarity Clear Urine pH 7.0 Ur Specific [place] 1.005 Urine Protein Negative Urine Glucose (UA) [...] Signed: Adan Domínguez MD at 15:44 EST , Discharge Plan Triage Chief Complaint: ED [...] your Primary Care Provider. Call [facility] ([phone]) or report to the closest Emergency Room. Call 911 if necessary. 07/09/23 1640 <Electronically signed by Sherwin Mendoza MD> Cosigner Signature (if applicable): CC: Dr. Boston Lopez MD ~ Signed [facility] Work Phone: 1(793) 427-844608-31-2023 History of Present illness Narrative* Boston Lopez [...] visit. Either the patient or their legal direct marketing representative has been informed of the risks [...] BLD Boston Lopez MD documented in this encounterTrihealth08-07-2023 Discharge summary Author Chioma Bradley [facility] March 05, 2023 12:53pm Note Date/Time March 05, 2023 11: 54am [facility] Medical Records Department [address] [place] [address] Instructions for Home/Discharge Instructions 03/05/23 1153 MR#: [id number] Acct: [id number] Name: KIM LOTT Rep #: : 1995 27 From: Chioma meredith DO [...] Signed [facility] Work Phone: 1(504) 603-390008-07-2023 History and physical note Author Chioma Bradley [facility] March 05, 2023 11:52am Note Date/Time March 05, 2023 11: 52am [facility] Medical Records Department [address] [place] [address] H&P Exam - PARKING ENFORCER 03/05/23 1150 MR#: [id number] Acct: [id number] Name: KIM LOTTRIELLE Rep #:[id number] : 1995 27 From: Chioma meredith DO PCP: Dr. Boston Lopez MD Status:REG S DC Location: [place] [address] History and Physical Date of Admission: 03/05/23 HPI: 27-year-old G1 at 13 weeks presenting for suction dilation curettage for missed . Denies headache vision changes, chest pain or shortness of breath, nausea or vomiting, fevers or cough, diarrhea or constipation. PARKING ENFORCER history: G1: Current Medical history: Denies Surgical [...] for Anora testing. Will be sent. 03/05/23 1157 <Electronically signed by Chioma Bradley DO> Cosigner Signature (if applicable): CC: Dr. Chioma Bradley DO; Dr. Boston Lopez MD~ Signed [facility] Work Phone: 1(166) 547-923408-07-2023 Procedure [facility] 02-01-2023 History of Present illness Narrative* [...] [address] Bradley at [facility] for her ob care. Pedro Pablo [...] <=30 DAY SYMPTOMS - SED RATE WESTERGREN Boston Lopez MD documented in this encounterTrihealth01-05-2023 Miscellaneous Notes* Result Encounter Note - Nicolle Marshall - 08/03/2022 10:49 AM EST Normal pap letter sent documented in this encounterTrihealth01-03-2023 Instructions* Patient Instructions* Destiney Mccarthy APRN.CNP - 08/01/2022 1:47 PM EST vitamin with 0.4 mg folic acid documented in this encounterTrihealth01-03-2023 History of Present illness Narrative* Destiney Mccarthy APRN.CNP - 08/01/2022 1:26 PM EST Independent Driver offered: Patient declines. Kim is a 27 [...] OB History No obstetric history on file. Tie Up Worker History LMP: Age at Menarche: Age at First : Age at Menopause: Tie Up Worker History Comments: Sexual Activity: No sexual activity [...] external genitalia normal, normal Bartholin's glands, urethra, [place]'s glands, no vulvar lesions, no cervical lesions, [...] year or sooner as needed Destiney Mccarthy APRN.FRENCH PROFESSOR documented in this encounterTrihealth12-28-2022 Miscellaneous Notes* Telephone Encounter - Anni Sandoval RN - 07/26/2022 8:44 AM EST Patient contacted and given provider's message below. Anni Sandoval RN * Telephone Encounter - Boston Lopez MD - 07/26/2022 7:56 AM EST She has covid based on testing. Needs to stay in quarantine for five days from onset of symptoms and wear mask around all others for next five. Really does not meet criteria for oral meds. Call if any worsening symptoms, particularly shortness of breath. documented in this encounterTrihealth12-27-2022 History of Present illness Narrative* Valeri Marlow [...] 25, 2022 1:52 PM documented in this encounterTrihealth12-27-2022 History of Present illness Narrative* Boston Lopez [...] BLD Boston Lopez MD documented in this encounterTrihealthEvaluation + Plan note No data available for this section [facility] Evaluation noteNo assessment information available [place] [...] for diabetes mellitus documented in this encounter [facility]Evalubayhealth [facility] note* Diagnosis Encounter for gynecological examination (general) (routine) without abnormal findings- Primary Screening for cervical cancer Screening for malignant neoplasm of the cervix Screen for STD (sexually transmitted disease) Screening examination for venereal disease documented in this encounter [facility]health [facility] note* Diagnosis Erythema migrans- Primary documented in this encounter [facility] note* Diagnosis Brittle nails- Primary Other specified disease of nail Hair loss Alopecia, unspecified Family history of thyroid disease Family history of other endocrine and metabolic diseases documented in this encounter [facility] note* Diagnosis Onset Date Resolution Status Bicornate [...] Medical Center Work Phone: evaluation note* Diagnosis Pain of finger of left hand Pain in limb documented in this encounter [facility] note* Diagnosis Sinobronchitis- Primary Unspecified sinusitis (chronic) Acute cough Fever, unspecified fever cause documented in this encounter [facility] note* Diagnosis Well adult exam- Primary Routine general medical examination at a health care facility Chest pain, unspecified type Encounter for screening examination for other mental health and behavioral disorders Screening for depression Well adult exam Routine general medical examination at a health care facility documented in this encounter [facility] note* Diagnosis Well adult exam Routine general medical examination at a health care facility documented in this encounter [facility] note* Diagnosis Onset Date Resolution Status Admit Date Amenorrhea acute March 1:55pm Bicornate uterus acute Septembe r 2024 1:55pm Lulu positive acute April 28, 2025 1:55pm Family history of ITP acute Sep tember 2024 1:55pm History of human papilloma virus acute April 28, 2025 1:55pm History of miscarriage, currently acute March 1:55pm Hx of section acute Se pt2024 1:55pm Hx of depression, currently acute March 1:55pm acute March 1:55pm Supervision of high-risk acute April 28, 2025 1:55pm [facility] Work Phone: Hospital Discharge instructions Additional Instructions Take ibuprofen and Tylenol as needed for cramping.[facility] Work Phone: Hospital Discharge instructions No data available for this section [facility] Progruad note No data available for this section [facility] Protclbw note Author Roger Marshall [facility] Note Date/Time May 04, 2025 9: 30am [facility] [address], [address] [place] [address] OFFICE VISIT Date of Service: 05/04/25 MR#: [id number] Acct: [id number] Name: KIM LOTT Rep # : [id number] : 1995 Provider: JESUS Marshall Age/Sex: 30/F Location: [facility] Status: Signed Intake Vital Signs 04/28/25 14:01 05/04/25 09:14 Height 5 ft 7 in 5 ft 7 in Weight: 136 lb 2 oz BMI 21.3 BP 117/79 Intake Visit Reasons: 9.5w, bleeding Chief Complaint: 9wk OB, Bleeding Molasses Preparer Required: No Is patient in pain?: No Allergies pollen extracts Allergy (Verified 05/04/25 09:12) Unknown Medications ?Medication ?Instructions ?Recorded ?Confirmed ?Type multivitamin no.47-iron fum 27 cap PO 04/16/25 5 History mg-folate no.1 1 mg-dha 300 mg capsule (PNV-DHA) Last Menstrual Period: 06/03/23 : No PFSH PFSH Medical History Bicornate uterus History of miscarriage, currently Supervision of high-risk contractions Abnormal Pap smear of cervix Seasonal allergies Raynauds disease Non-smoker Acute bacterial conjunctivitis Influenza A Surgical History Hx of section H/O dilation and curettage History of wisdom tooth extraction (~12/2021) History of appendectomy (~2003) Family History Mother Hypertension Hypothyroidism Social History adopted: No household members: spouse and children housing: house number of children: 1 current occupational status: employed 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 occupational exposures/hazards: No pets and animals: Yes pets and animals: dog(s) history of recent travel: Yes ( -January, -December) out of state: Yes out of country: No sexually active: Yes Smoking Status: Never smoker alcohol intake: former year quit: 2024 substance use type: does not use well-balanced diet: about half the time caffeine: No eating out: 1-3 times/week during the past year weight has: decreased > 10 lbs what type of physical activity do you participate in: walking frequency: 1-2 times per week duration: 15-30 minutes/day juan daniel/caodaism: [employer] seatbelt use: always do you feel safe at home: Yes additional social history: Medardo- Mophie History 3 Elective abortions Hx Para 1 Spontaneous abortions 1 Hx # Term Pregnancies Ectopic pregnancies Hx # Pregnancies Multiple births # of living children 1 Past Pregnancies Del. Date Name GA/Weeks Outcome Route Bth Weight Infant Gen Labor Lgth Anesthesia Del Locatn Provider FOB 03/05/23 miscarriage 13 spontaneous 02/19/24 Sun[facility] 37 live - full term 7lbs Male sp inal [facility] Delivery Date: 03/05/23 Last Updated by: Gini Schuler D&C Delivery Date: 02/19/24 Last Updated by: Kaitlynn Rousseau, RN primary section for breech HPI 9.5w, bleeding Details: KIM LOTT is a 30 year old who presents for routine OB visit. OB Visit OND[facility] Calculator Estimated Delivery Date Method Current WG Current Estimate 12/02/25 Ultrasound #2 9w 5d Other Estimates 11/27/25 Ultrasound #1 10w 3d Expected Delivery Route/Plan for repeat cs with JV at 39 weeks Specific Issue/Plans Covid status: [] Flu vaccine: [] Tdap vaccine: [] Rhogam: [] LARC form signed: [] Problem list reviewed and updated with the most current plan of care details and appropriate orders placed. Relevant counseling for the gestational age provided. Continue routine care and follow up unless otherwise noted in visit notes/problem list details Initial Weight: Not Recorded Date -?-?-?-?-?-?-?-?-?-?-?-?- EGA Weight BP Urine Prot -?-?-?-?-?-?-?-?-?-?-?-?- Glucose FHR FuHt Pres Dilation -?-?-?-?-?-?-?-?-?-?-?-?- Effaced St Visit Note 04/28/25 -?-?-?-?-?-?-?-?--?-?-?-?- 8w 6d 138 lb 6 oz 120/80 -?-?-?-?-?-?-?-?-?-?-?-?- 188 -?-?-?-?-?-?-?-?-?-?-?-?- JV- CRL still co nsistent with last ultrasound. ONDINA 12/02/24. declines NIPT 05/04/25 -?-?-?-?-?-?-?-?-?-?-?-?- 9w 5d 136 lb 2 oz 117/79 -?-?-?-?-?-?-?-?-?-?-?-?- 179 -?-?-?-?-?-?-?-?-?-?-?-?- KW- work in for vaginal bleeding-had a gush of blood about 45 minutes prior to appt. no cramping. movement and FHT noted with US. CRL 2.60cm and cons with dates. bleeding precautions reviewed. ACOG First Trimester First Trimester: Desire for , Alcohol, Tobacco Cessation, Illicit/Recreational Drug/Substance Use, Intimate Partner Violence, Barriers to care, Unstable Housing, Communication Barriers, Environmental/Work Hazards, Anticipated Course of Care, Toxoplasmosis Precations, Use of Any medications, Sexual activity, Exercise, Dental Care, Sauna/Hot tub use, Seat Belt use, Childbirth classes/Hospital facilities, Travel, Indications for Ultrasound and Screening for Aneuploidy; Discussed Second Trimester Second Trimester: Signs and Symptoms of Labor, Selecting a care provider, Reproductive Life Planning & Contreception and Care Planning; Discussed Tobacco Cessation, Discussed Depression/Anxiety and Discussed Intimate Partner Violence Third Trimester Third Trimester: Pain Management Plans, Labor support person(s), Immediate Larc, Circumcision preference, Signs and Symptoms of Preeclampsia, Infant Feeding No , [place] Education and Family Medical Leave or Disability Forms ROS Const Reports system reviewed and no additional complaints, except as documented Eyes Reports system reviewed and no additional complaints, except as documented ENT Reports system reviewed and no additional complaints, except as documented Card Reports system reviewed and no additional complaints, except as documented Resp Reports system reviewed and no additional complaints, except as documented GI Reports system reviewed and no additional complaints, except as documented, Denies nausea and Denies vomiting Reports system reviewed and no additional complaints, except as documented Musc Reports system reviewed and no additional complaints, except as documented Skin/Breast Reports system reviewed and no additional complaints, except as documented Neuro Yes system reviewed and no additional complaints, except as documented Psych Reports system reviewed and no additional complaints, except as documented Endo Reports system reviewed and no additional complaints, except as documented Deon/Lymph Reports system reviewed and no additional complaints, except as documented Aller/Immun Reports system reviewed and no additional complaints, except as documented Exam Const General: cooperative, healthy appearing and no acute distress Orientation: alert, awake and oriented x3 Neck Neck: normal visual inspection and full ROM Resp Effort & Inspection: normal respiratory effort, able to speak in complete sentences and symmetric chest movement GI Inspection: normal to inspection Palpation: soft and other Other: gravid Skin General: no rashes or lesions noted Neuro General: patient alert, patient awake and patient oriented x3 Cognition: normal cognition Speech: speech normal Gait: normal gait Motor: muscle tone normal throughout Extrem General: normal to inspection and full ROM Psych Appearance: grossly normal Mental Status: mental status grossly normal Mood: congruent mood Affect: normal affect Speech and Movement: speech and movement normal Attitude: cooperative Thought Process: normal Thought Content: normal Judgment: judgment good Coding Level of Care Code OB Routine Diagnoses History of miscarriage, currently O09.299 Lulu positive R76.8 Supervision of high-risk O09.90 9 weeks gestation of Z3A.09 Weeks of gestation: 9 weeks Bicornate uterus Q51.3 Hx of section Z98.891 Hx of depression, currently O99.891; Z86.59 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 Family history of ITP Z83.2 Amenorrhea N91.2 Assessment and Plan Assessment and Plan (1) History of miscarriage, currently : Status: Acute (2) Lulu positive: Status: Acute Comment: *PRIOR * Son had Lulu (3) Supervision of high-risk : Status: Acute Comment: , ONDINA 11/27/25, JUDI Urbano, Medardo (4) : Status: Acute Qualifiers: Weeks of gestation: 9 weeks Qualified Code(s): Z3A.09 - 9 weeks gestation of Comment: declined NIPT & Carrier testing (5) Bicornate uterus: Status: Acute (6) Hx of section: Status: Acute (7) Hx of depression, currently : Status: Acute (8) History of human papilloma virus: Status: Acute Comment: +HPV 2019, colp nml, negative since (9) Family history of ITP: Status: Acute Comment: Pt's Father in law (10) Amenorrhea: Status: Acute Comment: HCGx2 Plan Details Additional Comments: ACOG trimester education reviewed and updated. see problem list details for updated plan management information and see below for orders placed at this visit. GA appropriate handout given. 05/04/25 [id number] <Electronically signed by Roger baez CNM> Date _ Roger Ellisigner Signature: Date (if applicable) CC: ~ [place] [employer] Work Phone: Reason for referral (narrative)* Diagnostic Procedure Only (Routine) - Closed Specialty Diagnoses / Procedures Referred By Contac t Referred To Contact XR IMAGING Diagnoses Pain of finger of left hand Procedures XR HAND GENERAL 3V PA/LAT/OBL LEFT RADEX HAND MINIMUM [place] [address] [place] [address] [place] [address] Referral ID Status Reason Start Date Expiration Date V isits Requested Visits Authorized [id number] Closed Auto-Generate d Referral 07/25/2022 08/24/2023 1 1 [facility] for referral (narrative)* Outpatient Procedure (Routine) - Authorized Specialty Diagnoses / Procedures Referred By Cassandra t Referred To Contact [facility] [place] Diagnoses Chest pain, unspecified type Procedures ECHO ECHO TTHRC R-T 2D W/WOM-MODE COMPL SPEC&[place] [address] [place] [address] [facility] [place] [address] [place] [id number] Referral ID Status Reason Start Date Expiration Date Visits Requested Visits Authorized [id number] Authorized Auto-Generat ed Referral 08/27/2024 08/27/2025 1 1 * Outpatient Procedure (Routine) - New Request Specialty Diagnoses / Procedures Referred By Contac t Referred To Contact [facility] [place] Diagnoses Chest pain, unspecified type Procedures ECG COMPLETE ECG ROUTINE ECG W/LEAST 12 LDS W/I&[place] [address] [place] [address] [facility] [place] [address] [place] [address] Referral ID Status Reason Start Date Expiration Date Visits Requested Visits Authorized [id number] New Request Auto-Generat ed Referral 08/27/2024 08/27/2025 1 1 [facility]No reason for referral information availableWJ.W. [facility] Work Phone: Reason for visit Narrative* Diagnostic Procedure Only (Routine) - Closed Specialty Diagnoses / Procedures Referred By Contac t Referred To Contact XR IMAGING Diagnoses Pain of finger of left hand Procedures XR HAND GENERAL 3V PA/LAT/OBL LEFT RADEX HAND MINIMUM 3 VIEWS Boston Lopez MD [address] [place] [address] [place] [address] Referral ID Status Reason Start Date Expiration Date V isits Requested Visits Authorized [id number] Closed Auto-Generate d Referral 07/25/2022 08/24/2023 1 1 [facility] Summary Purpose Family History No Family History Records Found Relationship Condition Age at Onset Recorded Date/T sofia mother Hypertension Unknown Hypothyroidism Unknown Advance Directives No Advanced Directives Records Found Advance Directive Response Recorded Date/ Time Living Will No March 02, 2023 2:16pm Power of Product Marketing Director No March 02 2:16pm Advance Directive Response Recorded Date/ Time Living Will No July 09 2:19pm Power of Product Marketing Director No July 09, 2023 2:19pm Advance Directive Response Recorded Date/ Time Living Will No August 18 10:59pm Power of Product Marketing Director No August 18, 2023 10:59pm Advance Directive Response Recorded Date/ Time Living Will No August 18 11:59pm Power of Product Marketing Director No August 18, 2023 11:59pm Chief Complaint [...] abd cramping, pregancy E-ORDER VIABILITY NOB LMP 11/ n/v, blood in emesis OB, vaginal discharge [...] Complaint INT LABS abd cramping, pregancy E-ORDER Chief Complaint Admit Date Amenorrhea March 22, 2025 4: 11pm Chief Complaint Admit Date Amenorrhea March 22, 2025 4: 11pm Z78.9 Other specified health status [facility]2024 4:07pm -VIABILITY, HX MISCARRIAGE [facility] 2024 4:07pm Chief Complaint Admit Date Amenorrhea March 22, 2025 4: 11pm Z78.9 Other specified health status [facility] 2024 4:07pm -VIABILITY, HX MISCARRIAGE [facility] 2024 4:07pm *EST* NOB US#1 04/01/25 ONDINA 11/27/25 [facility] 2024 1:55pm Reason for Visit Admit Date Amenorrhea April 28, 2025 1:55pm Bicornate uterus April 28, 2025 1:55pm Lulu positive April 28, 2025 1:55pm Family history of ITP April 28 1:55pm History of human papilloma virus [facility] 2024 1:55pm History of miscarriage, currently pregna nt April 28, 2025 1:55pm Hx of section April 28, 2 025 1:55pm Hx of depression, currently p regnant April 28, 2025 1:55pm April 28, 2025 1:55pm Supervision of high-risk [facility] 2024 1:55pm Chief Complaint Admit Date Amenorrhea March 22, 2025 4: 11pm Z78.9 Other specified health status [facility] 2024 4:07pm -VIABILITY, HX MISCARRIAGE [facility] 2024 4:07pm *EST* NOB US#1 04/01/25 ONDINA 11/27/25 [facility] 2024 1:55pm 9.5w, bleeding May 04, 2025 9: 08am Reason for Visit Admit Date Amenorrhea April 28, 2025 1:55pm Bicornate uterus April 28, 2025 1:55pm Lulu positive April 28, 2025 1:55pm Family history of ITP April 28 1:55pm History of human papilloma virus [facility] 2024 1:55pm History of miscarriage, currently pregna nt April 28, 2025 1:55pm Hx of section April 28, 2 025 1:55pm Hx of depression, currently p regnant April 28, 2025 1:55pm April 28, 2025 1:55pm Supervision of high-risk Septe mber 2024 1:55pm Amenorrhea May 04, 2025 9: 08am Bicornate uterus May 04, 2025 9: 08am Lulu positive May 04, 2025 9: 08am Family history of ITP May 04, 2025 9:08am History of human papilloma virus May 04, 2025 9:08am History of miscarriage, currently pregna nt May 04, 2025 9:08am Hx of section May 04, 2025 9:08am Hx of depression, currently p regnant May 04, 2025 9:08am May 04, 2025 9: 08am Supervision of high-risk Octob er 2024 9:08am Reason for Referral Specialty Diagnoses / Procedures Referred By Contac t Referred To Contact Gynecology Diagnoses Screening for cervical cancer Procedures CONSULT TO GYNECOLOGY OFFICE/OUTPATIENT NEW HIGH MDM 60-74 MINUTES Boston Lopez MD [address] [place] [address] Referral ID Status Reason Start Date Expiration Date Visits Requested Visits Authorized [id number] Authorized PCP Requested Referral Auto-Generate d Referral 07/25/2023 1 1 Specialty Diagnoses / Procedures Referred By Contac t Referred To Contact XR IMAGING Diagnoses Pain of finger of left hand Procedures XR HAND GENERAL 3V PA/LAT/OBL LEFT RADEX HAND MINIMUM 3 VIEWS Boston Lopez MD [address] [place] [address] Xr Imaging Referral ID Status Reason Start Date Expiration Date V isits Requested Visits Authorized [id number] Closed Auto-Generate d Referral 07/25/2022 08/24/2023 1 1 Health Concerns Infection Onset Date Last Indicated Resolved Time COVID-19 Confirmed 07/25/2022 07/25/2022 Additional Source Comments INFORMATION SOURCE (unrecogn ized section and content) DATE CREATED AUTHOR 01/31/2018 [facility] DATE CREATED AUTHOR AUTHOR'S ORGANIZ ATION 03/06/2020 [facility] DATE CREATED AUTHOR AUTHOR'S ORGANIZ ATION 01/12/2021 [facility] DATE CREATED AUTHOR AUTHOR'S ORGANIZ ATION 01/26/[address] [facility] DATE CREATED AUTHOR AUTHOR'S ORGANIZ ATION 02/26/2024 [facility] ([place]) DATE CREATED AUTHOR AUTHOR'S ORGANIZ ATION 05/07/2025 [facility] DATE CREATED AUTHOR AUTHOR'S ORGANIZ ATION 05/30/2025 [facility] Goals (unrecognized section and content) Type Care Experience Labor Preferences-CB /BF classes: encouragedlabor support person: Ivanlabor intervention preferences: []pain management options preferred: epiduralcut cord/dad catch: cordbreastfeeding: yesPP control planned: discusseddiscussed possible routes of delivery and associated risks: []special requests: [] Type Detail Care Experience Labor Preferences-CB /BF classes: encouragedlabor support person: Ivanlabor intervention preferences: []pain management options preferred: epiduralcut cord/dad catch: cordbreastfeeding: yesPP control planned: discusseddiscussed possible routes of delivery and associated risks: []special requests: [] Care Experience for repeat cs with J V at 39 weeks Source Comments (unrecognize d section and content) In the event this informatio n is protected by the Federal Confidentiality of Alcohol and Drug Abuse Patient Records regulations: The Federal rules restrict any use of the information to criminally investigate or prosecute any alcohol or drug abuse patient.[facility]healthIn the event this information is protected by the Federal Confidentiality of Alcohol and Drug Abuse Patient Records regulations: The Federal rules restrict any use of the information to criminally investigate or prosecute any alcohol or drug abuse patient.[facility]healthIn the event this information is protected by the Federal Confidentiality of Alcohol and Drug Abuse Patient Records regulations: The Federal rules restrict any use of the information to criminally investigate or prosecute any alcohol or drug abuse patient.[facility]healthIn the event this information is protected by the Federal Confidentiality of Alcohol and Drug Abuse Patient Records regulations: The Federal rules restrict any use of the information to criminally investigate or prosecute any alcohol or drug abuse patient.TrihealthIn the event this information is protected by the Federal Confidentiality of Alcohol and Drug Abuse Patient Records regulations: The Federal rules restrict any use of the information to criminally investigate or prosecute any alcohol or drug abuse patient.[facility]healthIn the event this information is protected by the Federal Confidentiality of Alcohol and Drug Abuse Patient Records regulations: The Federal rules restrict any use of the information to criminally investigate or prosecute any alcohol or drug abuse patient.TrihealthIn the event this information is protected by the Federal Confidentiality of Alcohol and Drug Abuse Patient Records regulations: The Federal rules restrict any use of the information to criminally investigate or prosecute any alcohol or drug abuse patient.TrihealthIn the event this information is protected by the Federal Confidentiality of Alcohol and Drug Abuse Patient Records regulations: The Federal rules restrict any use of the information to criminally investigate or prosecute any alcohol or drug abuse patient.[facility]healthIn the event this information is protected by the Federal Confidentiality of Alcohol and Drug Abuse Patient Records regulations: The Federal rules restrict any use of the information to criminally investigate or prosecute any alcohol or drug abuse patient.TrihealthIn the event this information is protected by the Federal Confidentiality of Alcohol and Drug Abuse Patient Records regulations: The Federal rules restrict any use of the information to criminally investigate or prosecute any alcohol or drug abuse patient.[facility]healthIn the event this information is protected by the Federal Confidentiality of Alcohol and Drug Abuse Patient Records regulations: The Federal rules restrict any use of the information to criminally investigate or prosecute any alcohol or drug abuse patient.[facility] Reason for Visit (unrecogniz ed section and content) Reason Comments Establish Care physical Reason Comments Results Reason Comments Well [facility] Specialty Diagnoses / Procedures Referred By Contac t Referred To Contact Gynecology Diagnoses Screening for cervical cancer Procedures CONSULT TO GYNECOLOGY OFFICE/OUTPATIENT [facility] 60-74 MINUTES Boston Lopez MD [address] [place] [address] Referral ID Status Reason Start Date Expiration Date V isits Requested Visits Authorized [id number] Closed PCP Requested Referral Auto-Generated Referral 07/25/2022 [...] Provider Active Dr. Sherwin Mendoza MD Attending Provi rojelio, Referring Provider, Emergency Provider Active Team [...] Dr. Chioma Bradley DO Attending Provider Active Alterations Expert Relationship Specialty Start Date End Date Boston Lopez MD [address] [place] [address] PCP - General Family Medicine 02/01/23 Team Status: Inactive Member Role Status Dates No Primary Care Physician Primary Care Provider Active Dr. Refugio Barriga MD Attending Provider, Referring Pro vider Active Team Status: Inactive Member Role Status Dates Dr. Chioma Bradley DO Attending Provider, Referrin g Provider Active Dr. Boston Lopez MD Primary Care Provider Active Alterations Expert Relationship Specialty Start Date End Date Boston Lopez MD [address] [place], [place] [address] PCP - General Family Medicine 02/01/23 Team [...] Care Provider, Referring Provider Active Ria Aviles NP, TYPE PROOF REPRODUCER-C Attending Provider Active Team Status: Inactive Member [...] Nicolle Massey DO Attending Provider Activ e Alterations Expert Relationship Specialty Start Date End Date Boston Lopez MD [address] [place] [address] PCP - General Family Medicine 02/01/23 Alterations Expert Relationship Specialty Start Date End Date Boston Lopez MD [address] [facility] [place] [address] PCP - General Family Medicine 02/01/23 Alterations Expert Relationship Specialty Start Date End Date Boston Lopez MD [address] [place] [address] PCP - General Family Medicine 02/01/23 Syeda Fagan, SECURITY ASSURANCE SPECIALIST.FRENCH PROFESSOR [address] [place] [address] Groover And Striper Operator Family Medicine 07/07/24 Luli Plummer, SECURITY ASSURANCE SPECIALIST.FRENCH PROFESSOR [address] [facility] [place] [address] [employer] And Striper Operator Family Medicine 07/07/24 Alterations Expert Relationship Specialty Start Date End Date Boston Lopez MD [address] [place] [address] PCP - General Family Medicine 02/01/23 Syeda Fagan, SECURITY ASSURANCE SPECIALIST.FRENCH PROFESSOR [address] [place] [address] [facility] 07/07/24 Luli Plummer SECURITY ASSURANCE SPECIALIST.FRENCH PROFESSOR [address] [place] [address] [facility] 07/07/24 Alterations Expert Relationship Specialty Start Date End Date Boston Lopez MD [address] [place] [address] PCP - General Family Medicine 02/01/23 Syeda Fagan, SECURITY ASSURANCE SPECIALIST.FRENCH PROFESSOR [address] [place] [address] [facility] 07/07/24 Luli Plummer, SECURITY ASSURANCE SPECIALIST.FRENCH PROFESSOR [address] [place] [address] [facility] 07/07/24 Team Status: Active Member Role/Relationship Status Dates Dr. Boston Lopez MD Primary Care Provider Active Team Status: Inactive Member Role/Relationship Status Dates Dr. Boston Lopez MD Primary Care Provider Active Start: March 20, 2025 End: March 20, 2025 Dr. Kari Vanegas MD Attending Provider Active Start: March 20, 2025 End: March 20, 2025 Dr. Kari Vanegas MD Referring Provider Active Start: March 20, 2025 End: March 20, 2025 Team Status: Active Member Role/Relationship Status Dates Dr. Kari Vanegas MD Attending Provider Active Start: March 22, 2025 Dr. Boston Lopez MD Primary Care Provider Active Start: March 22, 2025 Team Status: Inactive Member Role/Relationship Status Dates Dr. Kari Vanegas MD Attending Provider Active Start: March 22, 2025 End: March 22, 2025 Dr. Boston Lopez MD Primary Care Provider Active Start: March 22, 2025 End: March 22, 2025 Team Status: Active Member Role/Relationship Status Dates Dr. Boston Lopez MD Primary care physician Active Team Status: Inactive Member Role/Relationship Status Dates Dr. Boston Lopez MD Primary care physician Active Start: March 20, 2025 End: March 20, 2025 Dr. Kari Vanegas MD Attending physician Active Start: March 20, 2025 End: March 20, 2025 Dr. Kari Vanegas MD Referring Provider Active Start: March 20, 2025 End: March 20, 2025 Team Status: Inactive Member Role/Relationship Status Dates Dr. Kari Vanegas MD Attending physician Active Start: March 22, 2025 End: March 22, 2025 Dr. Boston Lopez MD Primary care physician Active Start: March 22, 2025 End: March 22, 2025 Team Status: Inactive Member Role/Relationship Status Dates Dr. Boston Lopez MD Primary care physician Active Start: April 01, 2025 End: April 01, 2025 Dr. Kari Vanegas MD Attending physician Active Start: April 01, 2025 End: April 01, 2025 Dr. Kari Vanegas MD Referring Provider Active Start: April 01, 2025 End: April 01, 2025 Team Status: Inactive Member Role/Relationship Status Dates Dr. Boston Lopez MD Primary care physician Active Start: April 13, 2025 End: April 13, 2025 Dr. Kari Vanegas MD Attending physician Active Start: April 13, 2025 End: April 13, 2025 Dr. Kari Vanegas MD Referring Provider Active Start: April 13, 2025 End: April 13, 2025 Team Status: Inactive Member Role/Relationship Status Dates Dr. Boston Lopez MD Primary care physician Active Start: April 28, 2025 End: April 28, 2025 Dr. Boston Lopez MD Referring Provider Active Start: April 28, 2025 End: April 28, 2025 Dr. Nicolle Massey DO Attending physician Active Start: March End: April 28, 2025 Team Status: Active Member Role/Relationship Status Dates Dr. Boston Lopez MD Primary care physician Active Start: April 28, 2025 Dr. Nicolle Massey DO Attending physician Active Start: March Team Status: Inactive Member Role/Relationship Status Dates Dr. Boston Lopez MD Primary care physician Active Start: May 04, 2025 End: May 04, 2025 Dr. Boston Lopez MD Referring Provider Active Start: May 04, 2025 End: May 04, 2025 Roger Marshall CNM Attending physician Active Start: May 04, 2025 End: May 04, 2025 FOR RECORDS PERTAINING TO PATIENTS WHO ARE [...] BE BASED ON THE PRIMARY CLINICAL RECORDS. [facility]. provides no warranty or guarantee of the accuracy or completeness of information in this document.
[2025-06-05 05:53] LABS: Mucous, Urine 0 SEEN /hpf (<or=2+)
[2025-06-05 05:55] LABS: Color, Urine Yellow (Yellow); Glucose, Dipstick Normal (Normal); Ketone-Dipstick 15 mg/dl (Negative); Leukocyte Esterase-Dipstick Negative /ul (Negative); Nitrite-Dipstick Negative (Negative); Occult Blood-Urine 250 /ul (Negative); Protein-Dipstick 30 mg/dl (Negative); Specific Gravity, Urine 1.010 (1.002-1.030); Urine Bilirubin Dipstick Negative (Negative)
[2025-06-05 06:05] LABS: hCG Titer Quant., Serum 3487 mIU/mL (<9 non-preg)
[2025-06-05 06:11] LABS: Red Blood Cells-Urine 50-100 SEEN /hpf (0-5); Squamous Epithelial Cells - UA 0-5 SEEN /hpf (5-10)
--- NOTE | 2025-06-05 06:39 | EDS_ITS ---
HPI HPI - Female History of Present Illness Chief Complaint: Vag Bld, Preg Narrative Narrative: Patient was seen and examined after presenting to ED for vaginal bleeding she just had an appointment yesterday at [facility] where she was about 14 weeks has been bleeding pretty much consistently since she was 10 weeks and it was found that there was no heart and signs concerning for demise so they were planning to do a D&E today at 1400 however she started having significant amount of bleeding at approximately 0300 going through multiple paddings she is not on any anticoagulation not known to have any bleeding disorders but she is . [facility] Medical History (Updated 06/05/25 @ 07:[address] Selma Gutierrez, DO) contractions Abnormal Pap smear of cervix Bicornate uterus Seasonal allergies Raynauds disease History of miscarriage, currently Supervision of high-risk Non-smoker Acute bacterial conjunctivitis Influenza A Home Medications ?Medication ?Instructions ?Recorded ?Last Taken ?Type multivitamin no.47-iron fum 27 1 cap PO DAILY 04/16/25 Unknown History mg-folate no.1 1 mg-dha 300 mg capsule (PNV-DHA) misoprostol 200 mcg tablet 200 mcg PO ONCE #1 TAB 01/21 Unknown Rx (Cytotec) Allergy/AdvReac Type Severity Reaction Status Date / Time pollen extracts Allergy Unknown Verified 06/05/25 05:10 Family History Mother Hypertension Hypothyroidism Surgical History Hx of section H/O dilation and curettage History of wisdom tooth extraction (~12/2021) History of appendectomy (~2003) Social History adopted: No household members: spouse and children housing: house number of children: 1 current occupational status: employed 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 current occupational exposures/hazards: No pets and animals: Yes pets and animals: dog(s) history of recent travel: Yes ( -January, -December) out of state: Yes out of country: No sexually active: Yes Smoking Status: Never smoker alcohol intake: former year quit: 2024 substance use type: does not use well-balanced diet: about half the time caffeine: No eating out: 1-3 times/week during the past year weight has: decreased > 10 lbs what type of physical activity do you participate in: walking frequency: 1-2 times per week duration: 15-30 minutes/day juan daniel/lutheran: Church seatbelt use: always do you feel safe at home: Yes additional social history: [employer] ROS ROS ED ROS Narrative Pertinent Positives: with vaginal bleeding Pertinent Negatives: Abdominal pain bleeding disorders use of anticoagulation fevers chills vomiting The remainder of review of systems negative unless otherwise stated in the HPI above. Systems reviewed including constitutional, psychiatric, cardiovascular, respiratory, integument, HENT, gastrointestinal. EXAM Physical Exam Narrative Exam Narrative: Patient is afebrile hemodynamically stable does not appear toxic or in distress her abdomen is soft nontender nondistended. [Skin: Warm, dry and intact. Rash is blanchable, no vesicles, petechiae/purpura, no skin sloughing or mucosal involvement, no crepitus, negative Nikolsky sign. Rash is not bullseye in shape, no ticks or bite sites appreciated. No involvement of palms and soles. No weeping or drainage. No excoriations noted.] Const Vital Signs: 06/05/25 05:06 Temperature 98.8 F Temperature Source Oral Pulse Rate 100 Respiratory Rate 16 Blood Pressure 117/78 Blood Pressure Mean 91 Pulse Ox 100 Oxygen Delivery Method Room Air MDM MDM MDM Narrative Medical decision making narrative: Nursing notes, triage notes, available previous documentation, and vital signs were reviewed. Any discrepancies noted were addressed. Differential Diagnoses: Likely ongoing process of her spontaneous miscarriage Interventions: Fluids Given: 1 L normal saline Labs Reviewed: O+. No leukocytosis or leukopenia hemoglobin 12.1 platelets are 169 quantitative hCG is nearly 3500 urine was without evidence of infection but does show blood and 15 ketones Previous Documentation Reviewed: None available or applicable at this time. ED Course: Patient presenting with vaginal bleeding concern was that she was having a spontaneous yesterday at [facility] office and for D&E today at 1400 however started having significant bleeding per patient still having bleeding in the room pelvic exam was performed. Discussed with [facility] Dr. Diallo who is agreeable to admission and they will try and move up her procedure if possible. This note was made utilizing voice recognition software. All attempts were made to correct spelling or other errors prior to note completion. However, due to the fast-paced nature of emergency medicine, some errors may still be present. Lab Data Labs: Laboratory Results - last 24 hr 06/05/25 06/05/25 05:20 05:45 WBC 5.9 RBC 4.02 L Hgb 12.1 Hct 36.4 L MCV 90.5 MCH 30.1 MCHC 33.2 RDW Std Deviation 39.2 RDW Coeff of Flavia 11.8 Plt Count 169 MPV 9.2 Immature Gran % (Auto) 0.300 Neut % (Auto) 62.9 Lymph % (Auto) 16.4 L [place] % (Auto) 19.0 H Eos % (Auto) 0.9 Baso % (Auto) 0.5 Absolute Neuts (auto) 3.7 Absolute Lymphs (auto) 0.96 Nucleated RBC % 0 HCG, Quant 3487 H Urine Color Yellow Urine Clarity Sl. Cloudy Urine pH 6.5 Ur Specific [place] 1.010 Urine Protein 30 H Urine Glucose (UA) Normal Urine Ketones 15 H Urine Occult Blood 250 H Urine Nitrite Negative Urine Bilirubin Negative Urine Urobilinogen Normal Ur Leukocyte Esterase Negative Urine RBC 50-100 SEEN Urine WBC 0 SEEN Ur Squamous Epith Cells 0-5 SEEN Urine Bacteria RARE Urine Mucus 0 SEEN Blood Type O POSITIVE Discharge Plan Triage Chief Complaint: Vag Bld, Preg ED Provider: Selma Gutierrez Dx/Rx/DC Orders Clinical Impression: Miscarriage, Vaginal bleeding Prescriptions: No Action PNV-DHA 27 mg iron-1 mg -300 mg capsule 1 cap PO DAILY misoprostol [Cytotec] 200 mcg tablet 200 mcg PO ONCE Qty: 1 0RF Rx Instructions: take 4 hours prior to procedure Primary Care Provider: [facility] Referrals: [facility] MD [Primary Care Provider, Medical] Print Language: Ethiopian
--- OUTSIDE RECORDS SUMMARY | 2025-06-05 07:34 | XMS RPT_ITS | CCD ---
Author Organization [facility] Care Team Providers Care Inspector Returned Materials Name Role Phone Juan, Ann Unavailable Unavailable [...] Referring Provider JESUS Marshall Attending Provider [phone] SOLITARIO Aviles NP Attending Provider [phone] JESUS Herrera Attending Provider Dr. [place] Lopez Primary Care Provider John, Dr. Mead Referring Provider JESUS Marshall Attending Provider [phone] Traci METAL TANK BUILDERSOLITARIO Attending Provider JESUS Herrera Attending Provider Dr. Kari Vanegas Attending Provider Dr. Nicolle Massey Attending Provider BOSTON LOPEZ Primary Care Unavailable ROGER MARSHALL Referring Unavailable HINA NEWMAN Attending Unavailable HINA NEWMAN Attending Unavailable BOSTON LOPEZ Primary Care Unavailable ROGER MARSHALL Referring Unavailable TRUNG CANELA Attending Unavailable BOSTON LOPEZ Primary Care Unavailable ROGER MARSHALL Referring Unavailable JOHN, BOSTON Rogers Primary Care Unavailable ROGER MARSHALL Referring Unavailable NEWMANHINA CARRILLO Attending Unavailable TRUNG CANELA Attending Unavailable JOHN, BOSTON Rogers Primary Care Unavailable ROGER MARSHALL Referring Unavailable ANDRZEJ GARCIA, CARYN Primary Care Physician ER_REG, TEMP ID Attending Unavailable ANDRZEJ GARCIA, CARYN Primary Care Unavailable Unavailable Primary Care Provider Unavailchauncey Lopez MD, [place] Rogers Primary Care Provider Haagen RUG BACKING STENCILER.TRUCK MECHANIC, Syeda Unavailable Suppan RUG BACKING STENCILER.TRUCK MECHANIC, Luli A Unavailable John GARCIA, Dr. Mead Primary Care Provider Guilherme GARCIA, Dr. Pierce Attending Provider Guilherme GARCIA, Dr. Pierce Referring Provider John GARCIA, Dr. Mead Primary Care Physician Guilherme GARCIA, Dr. Pierce Attending Physician John GARCIA, Dr. Mead Referring Provider Dr. Nicolle Massey DO Attending Physician Roger Marshall CNM Attending Physician JOHN, BOSTON Rogers Referring Unavailable JOHN, BOSTON Rogers Primary Care Unavailable JOHN, BOSTON J Referring Unavailable JOHN, BOSTON Rogers Primary Care Unavailable JOHN, BOSTON Rogers Attending Unavailable JOHN, BOSTON Rogers Primary Care Unavailable JESICA JOHNSON Attending Unavailable JOHN, BOSTON J Primary Care Unavailable KAVITHA, LULI A Referring Unavailable JOHN, BOSTON J Primary Care Unavailable KAVITHA LULI A Attending Unavailable JOHN, BOSTON J Primary Care Unavailable LULI PLUMMER A Attending Unavailable JOHN, BOSTON J Primary Care Unavailable JOHN, BOSTON J Referring Unavailable JOHN, BOSTON J Primary Care Unavailable John, [place] Referring Unavailable John, [place] Primary Care Unavailable Kari Vanegas Attending Unavailable [place], [place] Primary Care Unavailable Nicolle Massey Attending Unavailabl e [place], [place] Primary Care Unavailable Kari Vanegas Attending Unavailable John, [place] Primary Care Unavailable Nicolle Massey Attending Unavailabl e John, [place] Primary Care Unavailable Marcanthony, Kari Referring Unavailable Marcanthony, Kari Attending Unavailable [place], [place] Primary Care Unavailable Selma Gutierrez Attending Unavailable Roger Marshall Attending Unavailable John, [place] Referring Unavailable John, [place] Primary Care Unavailable Marcanthony, Kari Attending Unavailable [place], [place] Referring Unavailable John, [place] Primary Care Unavailable John, [place] Referring Unavailable John, [place] Primary Care Unavailable Traci WEINER, Ria Attending Unavailable John, [place] Referring Unavailable John, [place] Primary Care Unavailable Nicolle Massey Attending Unavailabl e [place], [place] Primary Care Unavailable John, [place] Referring Unavailable Vande Nicolle Lagos Attending Unavailabl e John, [place] Primary Care Unavailable Marcanthony, Kari Attending Unavailable Marcanthony, Kari Referring Unavailable [place], [place] Primary Care Unavailable Marcanthony, Kari Attending Unavailable Marcanthony, Kari Referring Unavailable Marcanthony, Kari Attending Unavailable John, [place] Primary Care Unavailable Marcanthony, Kari Referring Unavailable Allergies Allergy Classification Reported Allergen(s) Allergy Type Date of Onset Reaction(s) Facility (1 source) No Known Medication Allergies; Translations: [No Known Medication Allergies] Propensity to adverse reactions to drug (disorder) [facility] Repository (1 source) Pollen; Translations: [POLLEN] allergy to substance 7 [facility] Work Phone: (20 sources) Pollen; Translations: [POLLEN EXTRACTS] Allergy to substance 7 Other: See Comments [facility] Work Phone: (1 source) Pollen Drug allergy (disorder) [facility] Repository Medications Current Medications Medication Drug Class(es) [...] daily on days 2 through 5 AZITHROMYCIN [id number] Clint HIGGINS cefuroxime 500 mg oral tablet [...] extended release oral tablet (4 sources) Uncompetitive P-gfgrzj-F-aspartat e Receptor Antagonist, Sigma-1 Agonist Start: 12-09-2017 [...] Start: 09-03-2017 take 1 tablet by jesu th once daily Norethindrone-E.Estradiol-Iron ( Fe 24) 1 mg-20 mcg (24)/75 mg (4) tablet Active 1 TABLET PO daily September 03, 2017 1:00am Multivit 22-Rtku-Rwepxz 1-Dh a (Pnv-Dha) 27 mg iron-1 mg [...] {tbl} PO Q4H as needed for pain 20 7 0 February 19, 2024 March 04, 2024 1:42pm Status post delivery History of uterine scar from previous surgery 1-2 tabs q 4 hrs as needed for pain benzonatate 200 mg oral capsule (2 sources) Non-narcotic Antitussive Start: 04-30-2017 BENZONATATE 200 MG CAPS 1 capsule every 8 hours as needed for cough BENZONATATE [id number] Clint HIGGINS benzoyl peroxide 0.05 mg/mg / [...] on above: take 1 capsule by mo [facility] four times a day for 7 [...] SARAH-ETH ESTRAD-FE TABS (1 source) Start: 04-30-2017 FE 24 TABS as directed NORETHIN SARAH-ETH ESTRAD-FE TABS [id number] Luisa Grover FILLER SIFTER MACHINE Pnv Cmb#95-Ferrous Fumarate-Fa () 28 mg iron- 800 mcg tablet (11 sources) Start: 03-02-2023 End: 03-04-2024 Pnv Cmb#95-Ferrous Fumarate-Fa () 28 mg iron- 800 mcg tablet Discontinued 1 {tbl} PO DAILY March 02, 2023 12:00am March 04, 2024 1:42pm Start: 03-02-2023 [facility] Pnv Cmb#95-Ferrous Fumarate-Fa () 28 mg iron- 800 mcg tablet Active 1 TABLET PO DAILY March 01, 2023 11:00pm Start: 03-02-2023 take 1 tablet by jesu once daily Pnv Cmb#95-Ferrous Fumarate-Fa () 28 mg iron- 800 mcg tablet Active 1 TABLET PO DAILY March 02, 2023 12:00am Pnv No.95-Ferrous Fumarate-F a () 28 mg iron- 800 mcg tablet (4 sources) Start: 03-02-2023 End: 03-04-2024 Pnv No.95-Ferrous Fumarate-F a () 28 mg iron- 800 mcg tablet Discontinued 1 {tbl} PO DAILY March 02, 2023 12:00am March 04, 2024 1:42pm Fqx258-Edqucux Fumarate-Fa () 28-800 mg-mcg tablet (6 sources) Start: 02-12-2024 End: 04-16-2025 Eft608-Uaixxxz Fumarate-Fa () 28-800 mg-mcg tablet Discontinued {tbl} PO February 12, 2024 12:00am April 16, 2025 9:52am Start: 02-12-2024 Lwx116-Clmhdvz Fumarate-Fa () 28-800 mg-mcg tablet Active {tbl} [...] sources) Bicornuate uterus; Translations: [Bicornate uterus] Onset: 06-05-2025 07-27-2023 Chronic Comment on above: in left ho rn Hemorrhage during ; abruptio placenta; placenta previa (20 sources) Subchorionic hematoma; Translations: [Other antepartum hemorrhage, unspecified trimester] Onset: 05-26-2025 07-09-2023 Episodic Immunizations and screening for infectious disease (9 sources) Patient encounter status; Translations: [Encounter for screening for infections with a predominantly sexual mode of transmission] Onset: 06-05-2025 Episodic Comment on above: *PRIOR * So [...] and frequent menstruation with regular cycle] Onset: 06-05-2025 07-09-2023 Chronic Comment on above: HCGx2 Nausea [...] of high-risk with history of ] Onset: 06-05-2025 08-02-2023 Episodic Other complications of (16 sources) Supervision of high risk , unspecified, unspecified trimester; Translations: [Supervision of unspecified high-risk ] Onset: 06-05-2025 08-02-2023 Episodic Other complications of (6 sources) [...] of other infectious and parasitic diseases] Onset: 06-05-2025 Episodic Other lower respiratory disease (2 sources) [...] of uterine scar from previous surgery] Onset: 06-05-2025 Episodic Residual codes; unclassified (1 source) Family history of diseases of the blood and blood-forming organs and certain disorders involving the immune mechanism; Translations: [Family history of diseases of the blood and blood-forming organs and certain disorders involving the immune mechanism] Onset: 06-05-2025 Episodic Residual codes; unclassified (1 source) 14 weeks gestation of ; Translations: [14 weeks gestation of ] Onset: 06-05-2025 Episodic Residual codes; unclassified (1 source) 12 weeks gestation of ; Translations: [12 weeks gestation of ] Onset: 05-26-2025 Episodic Residual codes; unclassified (1 source) 9 weeks gestation of ; Translations: [9 weeks gestation of ] Onset: 04-28-2025 Episodic Residual codes; unclassified (1 source) Other specified health status; Translations: [Other specified health status] Onset: 06-03-2025 Episodic Screening and history of mental health and substance abuse codes (3 sources) Encounter for screening examination for other mental health and behavioral disorders; Translations: [Encounter for screening for depression] Onset: 08-27-2024 Episodic Spontaneous (1 source) Incomplete spontaneous without complication; Translations: [Incomplete spontaneous without complication] Onset: 06-05-2025 Episodic Unclassified (1 source) Acute cough; Translations: [Acute cough] Onset: 06-05-2024 Unclassified (1 source) Other specified diseases and conditions complicating ; Translations: [Other specified diseases and conditions complicating ] Onset: 06-05-2025 Past or Other Problems Problem Classification Problem [...] fetus 02-20-2024 Comment on above: Confirm US. Diane AREVALO 02/10 to discuss Results Test Name Value Interpretation Reference Range Facility [id number] 06-05-2025 ABO and Rh group Nom (Bld) Blood group O Rh(D) positive Normal [facility] Comment on above: Performed By: #### M 100.2200, L7000.1800 #### [facility] [address] [place], [address] CBC W/Diff, Automatedon Absolute Lymph 0.96 X10 3/uL Normal 0.83-4.51 [facility] Comment on above: Performed By: #### M 100.2200, L7000.1800 #### [facility] [address] [place], [address] Absolute Neut 3.7 X10 3/uL Normal 2.0-7.7 [facility] Comment on above: Performed By: #### M 100.2200, L7000.1800 #### [facility] [address] [place], [address] Basophils/100 WBC (Bld) 0.5 % Normal 0-1 [facility] Comment on above: Performed By: #### M 100.2200, L7000.1800 #### [facility] [address] [place], [address] Eosinophils/100 WBC (Bld) 0.9 % Normal 0-5 [facility] Comment on above: Performed By: #### M 100.2200, L7000.1800 #### [facility] [address] [place], [address] Erythrocyte distribution width (RBC) [Ratio] 11.8 % Normal 11.6-14.6 [facility] Comment on above: Performed By: #### M 100.2200, L7000.1800 #### [facility] [address] [place], [address] Hematocrit (Bld) [Volume fraction] 36.4 % Low 37-47 [facility] Comment on above: Performed By: #### M 100.2200, L7000.1800 #### [facility] [address] [place], [address] Hemoglobin (Bld) [Mass/Vol] 12.1 g/dL Normal 12.0-15.0 [facility] Comment on above: Performed By: #### M 100.2200, L7000.1800 #### [facility] [address] [place], [address] IG% 0.300 Normal 0.0-0.9 [facility] Comment on above: Result Comment: IG% - Immature Granulocytes (promyelocytes, myelocytes and metamyelocytes) > 1% indicates that a LEFT SHIFT is Present. Performed By: #### M 100.2200, L7000.1800 #### [facility] [address] [place], [address] Lymphocytes/100 WBC (Bld) 16.4 % Low 19-41 [facility] Comment on above: Performed By: #### M 100.2200, L7000.1800 #### [facility] [address] [place], [address] MCH (RBC) [Entitic mass] 30.1 pg Normal 27.0-32.0 [facility] Comment on above: Performed By: #### M 100.2200, L7000.1800 #### [facility] [address] [place], [address] MCHC (RBC) [Mass/Vol] 33.2 g/dL Normal 32-36 [facility] Comment on above: Performed By: #### M 100.2200, L7000.1800 #### [facility] [address] [place], [address] MCV (RBC) [Entitic vol] 90.5 fL Normal 81-99 [facility] Comment on above: Performed By: #### M 100.2200, L7000.1800 #### [facility] [address] [place], [address] Monocytes/100 WBC (Bld) 19.0 % High 0-10 [facility] Comment on above: Performed By: #### M 100.2200, L7000.1800 #### [facility] [address] [place], [address] Neutrophils/100 WBC (Bld) 62.9 % Normal 47-70 [facility] Comment on above: Performed By: #### M 100.2200, L7000.1800 #### [facility] [address] [place], [address] Nucleated RBC (Bld) [#/Vol] 0 10*3/uL Normal 0-5 [facility] Comment on above: Performed By: #### M 100.2200, L7000.1800 #### [facility] [address] [place], [address] Platelet mean volume (Bld) [Entitic vol] 9.2 fL Normal 6.2-12.0 [facility] Comment on above: Performed By: #### M 100.2200, L7000.1800 #### [facility] [address] [place], [address] Platelets (Bld) [#/Vol] 169 10*3/uL Normal 150-450 [facility] Comment on above: Performed By: #### M 100.2200, L7000.1800 #### [facility] [address] [place], [address] RBC (Bld) [#/Vol] 4.02 10*6/uL Low 4.2-5.4 [facility] Comment on above: Performed By: #### M 100.2200, L7000.1800 #### [facility] [address] [place], [address] RDW SD 39.2 fl Normal 35.1-43.9 [facility] Comment on above: Performed By: #### M 100.2200, L7000.1800 #### [facility] [address] [place], [address] WBC (Bld) [#/Vol] 5.9 10*3/uL Normal 4.4-11.0 [facility] Comment on above: Performed By: #### M 100.2200, L7000.1800 #### [facility] [address] [place], [address] Urinalysis, Completeon 06-05 BACTERIA RARE Normal None Seen [facility] Comment on above: Order Comment: COLLE CTOR TO SPECIFY Performed By: #### M 100.2200, L7000.1800 #### [facility] [address] [place], [address] EPI,SQUAMOUS 0-5 SEEN Normal 5-10 [facility] Comment on above: Order Comment: COLLE CTOR TO SPECIFY Performed By: #### M 100.2200, L7000.1800 #### [facility] [address] [place], [address] RBC 50-100 SEEN Normal 0-5 [facility] Comment on above: Order Comment: JANE CTOR TO SPECIFY Performed By: #### M 100.2200, L7000.1800 #### [facility] [address] [place], [address] Mucus Ql (Urine sed) 0 SEEN Normal [facility] Comment on above: Order Comment: JANE CTOR TO SPECIFY Performed By: #### M 100.2200, L7000.1800 #### [facility] [address] [place], [address] WBC 0 SEEN Normal 0-5 [facility] Comment on above: Order Comment: JANE CTOR TO SPECIFY Performed By: #### M 100.2200, L7000.1800 #### [facility] [address] [place], [place], [id number] hCG Titer Quant., Serumon HCG QUANT. 3487 mIU/mL High <9 non-preg [facility] Comment on above: Result Comment: Gest ational Age 0.2-1 Week: 5-50 mIU/mL 1-2 Weeks: 50-500 mIU/mL 2-3 Weeks: 100-5000 mIU/mL 3-4 Weeks: 500-10,000 mIU/mL 4-5 Weeks:1000-50,000 mIU/mL 5-6 Weeks: 10,000-100,000 mIU/mL 6-8 Weeks: 15,000-200,000 mIU/mL 2-3 Months:10,000-100,000 mIU/mL Performed By: #### M 100.2200, L7000.1800 #### [facility] [address] [place], [place], [id number] Assurance Associate Office Visit Reporton 06-04-2025 Assurance Associate Office Visit Report [facility] [address] [place] [address] OFFICE VISIT Date of Service: 06/04/25 MR#: [id number] Acct: [id number] Name: KIM LOTT Rep #: [id number] : 1995 Provider: Dr. 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 OB Visit ONDINA Calculator Estimated Delivery Date Method Current WG Current Estimate 12/02/25 Ultrasound #2 14w 1d Other Estimates 11/27/25 Ultrasound #1 14w 6d Expected Delivery Route/Plan for repeat cs with [...] -???-???- KW- work in for vaginal bleeding-had (more content not included)... Normal [facility] Transvaginal w/Preg USon Transvaginal w/Preg [facility] [address] [place] [address] Transvaginal w/Preg MR#: [id number] Acct: [id number] Name: KIM LOTT Rep #: [id number] : 1995 F 30 From: Adan luque MD PCP: Dr. [place] Lopez MD Status: REG CLI Study: Transvaginal w/Preg US Date of Exam: 05/27/25 Exam# [id number] Ordering Dr: Kari Vanegas PROCEDURE: TRANSVAGINAL W/PREG US 05/27/2025 REASON [...] not visualized. DIMENSIONS: Parameter Measurement / EGA Wenden Rump Length: 5.3 cm/11 weeks and 6 [...] 11 weeks and 1 day. Reading Location: [facility] CC: Dr. Kari Vanegas MD; Dr. [place] Lopez MD Rollway Man: Signed Normal [facility] Assurance Associate Office Visit Reporton 05-26-2025 Assurance Associate Office Visit Report [facility] [address], [address] [place] [address] OFFICE VISIT Date of Service: 05/26/25 MR#: [id number] Acct: [id number] Name: KIM LOTT Rep #: [id number] : 1995 Provider: Dr. 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 - Has a 54-jgicr-yil son, Sundeep, who is reportedly doing well. [...] luis felipe (more content not included)... Normal [facility] Assurance Associate Office Visit Reporton 05-04-2025 Assurance Associate Office Visit Report [facility] [address], [address] [place] [address] OFFICE VISIT Date of Service: 05/04/25 MR#: [id number] Acct: [id number] Name: KIM LOTT Rep #: [id number] : 1995 Provider: JESUS Francis ams Age/Sex: 30/F [place] [facility] [place] Status: Signed Intake Vital Signs 04/28/25 14:01 05/04/25 09:14 Height 5 ft 7 in 5 ft 7 in Weight: 136 lb 2 oz BMI 21.3 BP 117/79 Intake Visit Reasons: 9.5w, bleeding Chief Complaint: 9wk OB, Bleeding 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 blee (more content not included)... Normal [facility] Chlamydia/GC SEPIDEH aptimaon CHLAMY,NUC ACID Negative Normal Negative [facility] Comment on above: Performed By: #### M 100.2200, L7000.1800 #### [facility] [address] [place], [place], [id number] GC BY NUC ACID Negative Normal Negative [facility] Comment on above: Result Comment: Perf ormed at: =G - [facility] [address] [id number] Director Of Special Services: Nohemi Lewis MD, Phone: [phone] Performed By: #### M 100.2200, L7000.1800 #### [facility] [address] [place], [place], [id number] US HEAD/NECK SOFT TISSUE OT Evangelina 05-01-2025 US HEAD/NECK SOFT TISSUE OTHER * * *Final Report* * * DATE OF EXAM: May 01 2025 1:17PM [facility] 1052 - US HEAD/NECK SOFT TISSUE OTHER [...] lesion. This has no internal vascularity noted. Rollway Man: [facility] Transcribe Date/Time: May 05 2025 6:16A Dictated by : ROS NGUYEN MD This examination was interpreted and the report reviewed and electronically signed by: ROS NGUYEN MD on May 05 2025 6:17AM EST [id number] Normal [facility] Urine Cultureon 04-30-2025 URC Below infection level. Mixed Gram Pos Gram Neg Org [place] Count <1000 MIXC Mixed contaminants. Submit a new specimen if indicated. Normal [facility] Comment on above: Performed By: #### M 100.2200, L7000.1800 #### [facility] [address] [place], [place], [id number] Absolute lymphocyte countOrd ered By: Nicolle Yolis on 04-28-2025 Lymphocytes Auto (Unsp spec) [#/Vol] 1.29 10*3/uL 0.83-4.51 [facility] Absolute neutrophil countOrd ered By: Nicolle Mckoylisa on 04-28-2025 Neutrophils (Bld) [#/Vol] 4.4 10*3/uL 2.0-7.7 [facility] Automated lymphocyte count a s percentage of total leukocytesOrdered By: Nicolle Yolis on 04-28-2025 Lymphocytes/100 WBC Auto (Unsp spec) 20.3 % 19-41 [facility] Basophil percentageOrdered B y: Nicolle Mckoylisa on 04-28-2025 Basophils/100 WBC (Bld) 0.6 % 0-1 [facility] CBC W/Diff, Automatedon 04-01 Absolute Lymph 1.29 X10 3/uL Normal 0.83-4.51 [facility] Comment on above: Performed By: #### L 3890.6102, L3890.6301, L509.4006, BTS, L3890.6006, L100.0100, L509.8002 #### [facility] [address] [place], [place], [id number] Absolute Neut 4.4 X10 3/uL Normal 2.0-7.7 [facility] Comment on above: Performed By: #### L 3890.6102, L3890.6301, L509.4006, BTS, L3890.6006, L100.0100, L509.8002 #### [facility] [address] [place], [address] Basophils/100 WBC (Bld) 0.6 % Normal 0-1 [facility] Comment on above: Performed By: #### L 3890.6102, L3890.6301, L509.4006, BTS, L3890.6006, L100.0100, L509.8002 #### [facility] [address] [place], [address] Eosinophils/100 WBC (Bld) 0.8 % Normal 0-5 [facility] Comment on above: Performed By: #### L 3890.6102, L3890.6301, L509.4006, BTS, L3890.6006, L100.0100, L509.8002 #### [facility] [address] [place], [address] Erythrocyte distribution width (RBC) [Ratio] 11.8 % Normal 11.6-14.6 [facility] Comment on above: Performed By: #### L 3890.6102, L3890.6301, L509.4006, BTS, L3890.6006, L100.0100, L509.8002 #### [facility] [address] [place], [address] Hematocrit (Bld) [Volume fraction] 40.4 % Normal 37-47 [facility] Comment on above: Performed By: #### L 3890.6102, L3890.6301, L509.4006, BTS, L3890.6006, L100.0100, L509.8002 #### [facility] [address] [place], [address] Hemoglobin (Bld) [Mass/Vol] 13.3 g/dL Normal 12.0-15.0 [facility] Comment on above: Performed By: #### L 3890.6102, L3890.6301, L509.4006, BTS, L3890.6006, L100.0100, L509.8002 #### [facility] [address] [place], [address] IG% 0.300 Normal 0.0-0.9 [facility] Comment on above: Result Comment: IG% - Immature Granulocytes (promyelocytes, myelocytes and metamyelocytes) > 1% indicates that a LEFT SHIFT is Present. Performed By: #### L 3890.6102, L3890.6301, L509.4006, BTS, L3890.6006, L100.0100, L509.8002 #### [facility] [address] [place], [address] Lymphocytes/100 WBC (Bld) 20.3 % Normal 19-41 [facility] Comment on above: Performed By: #### L 3890.6102, L3890.6301, L509.4006, BTS, L3890.6006, L100.0100, L509.8002 #### [facility] [address] [place], [address] MCH (RBC) [Entitic mass] 30.2 pg Normal 27.0-32.0 [facility] Comment on above: Performed By: #### L 3890.6102, L3890.6301, L509.4006, BTS, L3890.6006, L100.0100, L509.8002 #### [facility] [address] [place], [address] MCHC (RBC) [Mass/Vol] 32.9 g/dL Normal 32-36 [facility] Comment on above: Performed By: #### L 3890.6102, L3890.6301, L509.4006, BTS, L3890.6006, L100.0100, L509.8002 #### [facility] [address] [place], [address] MCV (RBC) [Entitic vol] 91.8 fL Normal 81-99 [facility] Comment on above: Performed By: #### L 3890.6102, L3890.6301, L509.4006, BTS, L3890.6006, L100.0100, L509.8002 #### [facility] [address] [place], [address] Monocytes/100 WBC (Bld) 8.6 % Normal 0-10 [facility] Comment on above: Performed By: #### L 3890.6102, L3890.6301, L509.4006, BTS, L3890.6006, L100.0100, L509.8002 #### [facility] [address] [place], [address] Neutrophils/100 WBC (Bld) 69.4 % Normal 47-70 [facility] Comment on above: Performed By: #### L 3890.6102, L3890.6301, L509.4006, BTS, L3890.6006, L100.0100, L509.8002 #### [facility] [address] [place], [address] Nucleated RBC (Bld) [#/Vol] 0 10*3/uL Normal 0-5 [facility] Comment on above: Performed By: #### L 3890.6102, L3890.6301, L509.4006, BTS, L3890.6006, L100.0100, L509.8002 #### [facility] [address] [place], [address] Platelet mean volume (Bld) [Entitic vol] 9.8 fL Normal 6.2-12.0 [facility] Comment on above: Performed By: #### L 3890.6102, L3890.6301, L509.4006, BTS, L3890.6006, L100.0100, L509.8002 #### [facility] [address] [place], [address] Platelets (Bld) [#/Vol] 261 10*3/uL Normal 150-450 [facility] Comment on above: Performed By: #### L 3890.6102, L3890.6301, L509.4006, BTS, L3890.6006, L100.0100, L509.8002 #### [facility] [address] [place], [address] RBC (Bld) [#/Vol] 4.40 10*6/uL Normal 4.2-5.4 [facility] Comment on above: Performed By: #### L 3890.6102, L3890.6301, L509.4006, BTS, L3890.6006, L100.0100, L509.8002 #### [facility] [address] [place], [address] RDW SD 39.8 fl Normal 35.1-43.9 [facility] Comment on above: Performed By: #### L 3890.6102, L3890.6301, L509.4006, BTS, L3890.6006, L100.0100, L509.8002 #### [facility] [address] [place], [address] WBC (Bld) [#/Vol] 6.4 10*3/uL Normal 4.4-11.0 [facility] Comment on above: Performed By: #### L 3890.6102, L3890.6301, L509.4006, BTS, L3890.6006, L100.0100, L509.8002 #### [facility] [place], [address] OVon 04-28-2025 CNOV Office Visit (FAMPWS) KIM LOTT ([id number]) 1995 F Date Time Provider Department 04/28/25 12:40 PM [facility] During your visit today, we recorded the following information about you: Pulse Blood pressure Weight 115/minute 126/68 62.1 kg Luli Plummer APRN.[facility] 04/28/2025 12:50 PM Signed This is a [...] as needed for worsening/no improvement. Luli Plummer APRN.[employer] [1] Social History Tobacco Use Smoking status: [...] nodes [R59.9] Order(s):US HEAD/NECK SOFT TISSUE OTHER [8798412] Order #: [id number] FUTURE Problem List As Of Date: 04/28/2025 (None) Other instructions from your clinician: 1) schedule ultrasound neck at desk Level of Service: OFFICE/OUTPATIENT ESTABLISHED LOW MDM 20 MIN [41281] Additional E/M codes: VISIT CPLX INHERENT EANDM ASSOC WITH MED * Encounter Status:Closed by LULI PLUMMER on 04/28/25 Normal [facility] Chlamydia trachomatis rRNA d etection by probe and target amplification methodOrdered By: Nicolle Lagos on 04-28-2025 C. trachomatis rRNA SEPIDEH+probe Ql (Unsp spec) Negative Negative [facility] Eosinophil percentageOrdered By: Nicolle Lagos on 04-28-2025 Eosinophils/100 WBC (Bld) 0.8 % 0-5 [facility] Erythrocyte distribution wid th ratioOrdered By: Nicolle Lagos on 04-28-2025 Erythrocyte distribution width (RBC) [Ratio] 11.8 % 11.6-14.6 [facility] Erythrocyte distribution wid th standard deviationOrdered By: Nicolle Lagos on 04-28-2025 Erythrocyte distribution width (RBC) [Ratio] 39.8 fl 35.1-43.9 [facility] HIVon 04-28-2025 HIV Non-Reactive Normal Nonreactive [facility] Comment on above: Result Comment: Non- Reactive Reactive Repeatedly reactive samples must be confirmed according to CDC recommended confirmatory algorithms. The subresults for either HIVAG or AHIV can be used as an aid in the selection of the confirmation algorithm for reactive samples. Send out specimens with Reactive results to [facility] for confirmation. Order the HIV antibody detection and differentiation: lc#[id number] Performed By: #### M 100.2200, L7000.1800 #### [facility] [address] [place], [address] Hematocrit Auto (Bld) [Volum e fraction]Ordered By: Nicolle Lagos on 04-28-2025 Hematocrit (Bld) [Volume fraction] 40.4 % 37-47 [facility] Hemoglobin measurementOrdere d By: Nicollened Lagos on 04-28-2025 Hemoglobin (Bld) [Mass/Vol] 13.3 g/dL 12.0-15.0 [facility] Hepatitis C Antibodyon 04-28 Hepatitis C Ab Non-Reactive Normal Nonreactive [facility] Comment on above: Result Comment: Reac tive: Presumptive evidence of antibodies to HCV. Follow CDC recommendations for supplemental testing. Non-Reactive: Antibodies to HCV were not detected; does not exclude the possibility of exposure to HCV Reactive Results are presumptive evidence of antibodies to HCV. Follow CDC recommendations for supplemental testing. Order confirmation testing: HCV Quant by PCR testing - HCVPCR #[id number] Non Reactive: < 0.8 Equivocal: >/= 0.8 to < 1.0 Reactive: >/= 1.0 The [facility] requires that a reactive/equivocal HCV antibody result be sent out for confirmation. HCV Quant by PCR testing. Performed By: #### M 100.2200, L7000.1800 #### [facility] [address] [place], [place], [id number] Immature granulocytes/100 WB C Auto (Bld)Ordered By: Nicolle Lagos on 04-28-2025 Immature granulocytes/100 WBC (Bld) 0.300 % 0.0-0.9 [facility] Comment on above: IG% - Immature Granu locytes (promyelocytes, myelocytes and metamyelocytes) > 1% indicates that a LEFT SHIFT is Present. L3890.6102on 04-28-2025 HEP B Surf Ag Non-Reactive Normal Nonreactive [facility] Comment on above: Result Comment: Reac tive: Presumptive evidence of HBV. Repeatedly reactive samples must be confirmed using a neutralization test ([employer] HBsAg Confirmatory Test) Non-Reactive: HBsAg not detected; does not exclude the possibility of exposure to HBV Performed By: #### M 100.2200, L7000.1800 #### [facility] [address] [place], [place], [address] L509.4006on 04-28-2025 Rubella IgG REAC Normal Nonreactive [facility] Comment on above: Result Comment: Anti body Result: Interpretation Non-Reactive: Non-Immune Reactive: Immune The following results were obtained with the [employer] Rubella IgG assay. Results from assays of other manufacturers cannot be used interchangeably. Performed By: #### L 3890.6102, L3890.6301, L509.4006, BTS, L3890.6006, L100.0100, L509.8002 #### [facility] [address] [place], [address] Laboratory - Microbiology an d Antimicrobial susceptibilityOrdered By: Nicolle Lagos on 04-28-2025 HBV surface Ag Ql (S) Non-Reactive Nonreactive [facility] Comment on above: Reactive: Presumptiv e evidence of HBV. Repeatedly reactive samples must be confirmed using a neutralization test ([employer] HBsAg Confirmatory Test)Non-Reactive: HBsAg not detected; does not exclude the possibility of exposure to HBV MCV (mean corpuscular volume ) determinationOrdered By: Nicolle Lagos on 04-28-2025 MCV (RBC) [Entitic vol] 91.8 fL 81-99 [facility] Mean corpuscular hemoglobin (MCH) determinationOrdered By: Nicolle Lagos on 04-28-2025 MCH (RBC) [Entitic mass] 30.2 pg 27.0-32.0 [facility] Mean corpuscular hemoglobin concentration (MCHC) determinationOrdered By: Nicolle Lagos on 04-28-2025 MCHC (RBC) [Mass/Vol] 32.9 g/dL 32-36 [facility] Mean platelet volume determi nationOrdered By: Nicolle Lagos on 04-28-2025 Platelet mean volume (Bld) [Entitic vol] 9.8 fL 6.2-12.0 [facility] Monocyte percentageOrdered B y: Nicolle Lagos on 04-28-2025 Monocytes/100 WBC (Bld) 8.6 % 0-10 [facility] Neisseria gonorrhoeae nuclei c acid detection by amplified probe techniqueOrdered By: Nicolle Lagos on 04-28-2025 N. gonorrhoeae DNA SEPIDEH+probe Ql (Unsp spec) Negative Negative [facility] Comment on above: Performed at: =[place] [address] [place] [id number] Director: Nohemi Lewis MD, Phone: [phone] Neutrophil percentageOrdered By: Nicolle Lagos on 04-28-2025 Neutrophils/100 WBC (Bld) 69.4 % 47-70 [facility] No Panel InformationOrdered By: Nicolle Lagos on 04-28-2025 HIV (1&2) Antibody Non-Reactive Nonreactive [facility] Comment on above: Non-ReactiveReactive Repeatedly reactive samples must be confirmed according to CDC recommended confirmatory algorithms. The subresults for either HIVAG or AHIV can be used as an aid in the selection of the confirmation algorithm for reactive samples.Send out specimens with Reactive results to [facility] for confirmation.Order the HIV antibody detection and differentiation: #[id number] Nucleated red blood cell per centageOrdered By: Nicolle Lagos on 04-28-2025 Nucleated RBC/100 WBC (Bld) [Ratio] 0 % 0-5 [facility] Assurance Associate Office Visit Reporton 04-28-2025 Assurance Associate Office Visit Report [facility] [address], [address] [place] [address] OFFICE VISIT Date of Service: 04/28/25 MR#: [id number] Acct: [id number] Name: KIM LOTT Rep #: [id number] : 1995 Provider: Dr. 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 Normal [facility] Platelet countOrdered By: Raymond Lagos on 04-28-2025 Platelets (Bld) [#/Vol] 261 10*3/uL 150-450 [facility] RBC Auto (Bld) [#/Vol]Ordere d By: Nicolle Lagos on 04-28-2025 RBC (Bld) [#/Vol] 4.40 10*6/uL 4.2-5.4 [facility] Syphilis Antibodieson 2024 Syphilis Abs Non-Reactive Normal Nonreactive [facility] Comment on above: Performed By: #### L 3890.6102, L3890.6301, L509.4006, BTS, L3890.6006, L100.0100, L509.8002 #### [facility] [address] [place], [address] Type AND Screenon 04-28-2025 Ab SCREEN GEL Negative Normal [facility] Comment on above: Order Comment: PN Performed By: #### L 3890.6102, L3890.6301, L509.4006, BTS, L3890.6006, L100.0100, L509.8002 #### [facility] [address] [place], [address] Urine cultureOrdered By: Jojo Lagos on 04-28-2025 Bacteria identified Cx Nom (U) Mixed Gram Pos & Gram Neg Org Abnormal [facility] White blood cell (WBC) count Ordered By: Nicolle Lagos on 04-28-2025 WBC (Bld) [#/Vol] 6.4 10*3/uL 4.4-11.0 [facility] CNOVon 04-16-2025 CNOV Office Visit (FAMPWS) KIM LOTT ([id number]) 1995 F Date Time Provider Department 04/16/25 8:00 AM LULI PLUMMER FAMPWS During your visit today, we recorded the following information about you: Pulse Blood pressure Weight 87/minute 102/56 62.6 kg Luli Plummer APRN.CNP 04/16/2025 8:25 AM Signed This is a [...] as needed for worsening/no improvement. Luli Plummer APRN.[employer] [1] Social History Tobacco Use Smoking status: Never Smokeless tobacco: Never Vaping Use Vaping status: Never Used Substance Use Topics Alcohol use: Yes Comment: occasional Drug use: Never Luli Plummer APRN.[employer] 04/16/2025 8:24 AM Signed - Take amoxicillin by mouth three times a day for 10 days; this antibiotic is safe during . - Use plain salin (more content not included)... Normal [facility] Transvaginal w/Preg USon Transvaginal w/Preg [facility] Imaging Services [address] [place] [id number] Transvaginal w/Preg US MR#: [id number] Acct: [id number] Name: KIM LOTT Rep #: [id number] : 1995 F 29 From: Adan luque MD PCP: Dr. Boston Lopez MD Status: [facility] Study: Transvaginal w/Preg US Date of Exam: 04/13/25 Exam# [id number] Ordering Dr: Kari Vanegas PROCEDURE: TRANSVAGINAL W/PREG [...] and unremarkable. DIMENSIONS: Parameter Measurement / EGA Wenden Rump Length: 9 mm/7 weeks and 0 days Gestational Sac: 1.5 cm/6 weeks and 2 days Yolk Sac: 4 mm/ ESTIMATED GESTATIONAL AGE: By Ultrasound: 6 weeks and 5 days ESTIMATED DATE OF DELIVERY: By Ultrasound: December 02, 2025 US/Transvaginal w/Preg US IMPRESSION: Single live intrauterine gestation with mean gestational age of 6 weeks and 5 days. Reading Location: [place] [address] CC: Dr. Kari Vanegas MD; Dr. Boston Lopez MD [place] Man: Signed Normal [facility] Transvaginal w/Preg USon Transvaginal w/Preg US [facility] Imaging Services [address] [place], [place] [address] Transvaginal w/Preg US MR#: [id number] Acct: [id number] Name: KIM LOTT Rep #: [id number] : 1995 F 29 From: Adan luque MD PCP: Dr. Boston Lopez MD Status: [facility] Study: Transvaginal w/Preg US Date of Exam: 04/01/25 Exam# [id number] Ordering Dr: Kari Vanegas PROCEDURE: TRANSVAGINAL W/PREG [...] well as repeat sonogram recommended. Reading Location: [place] [address] CC: Dr. Kari Vanegas MD; Dr. Boston Lopez MD [place] Man: Signed Normal [facility] Serum human chorionic gonado tropin detection for pregnancyOrdered By: Kari Vanegas on 03-22-2025 HCG ( test) Ql 280 mIU/mL High <9 [facility] Comment on above: Gestational Age0.2-1 Week: 5-50 mIU/mL1-2 Weeks: 50-500 mIU/mL2-3 Weeks: 100-5000 mIU/mL3-4 Weeks: 500-10,000 mIU/mL4-5 Weeks:1000-50,000 mIU/mL5-6 Weeks: 10,000-100,000 mIU/mL6-8 Weeks: 15,000-200,000 mIU/mL2-3 Months:10,000-100,000 mIU/mL hCG Titer Quant., Serumon HCG QUANT. 280 mIU/mL High <9 non-preg [facility] Comment on above: Result Comment: Gest ational Age 0.2-1 Week: 5-50 mIU/mL 1-2 Weeks: 50-500 mIU/mL 2-3 Weeks: 100-5000 mIU/mL 3-4 Weeks: 500-10,000 mIU/mL 4-5 Weeks:1000-50,000 mIU/mL 5-6 Weeks: 10,000-100,000 mIU/mL 6-8 Weeks: 15,000-200,000 mIU/mL 2-3 Months:10,000-100,000 mIU/mL Performed By: #### M 100.2200, L7000.1800 #### [facility] [address] [place], [place], [address] Serum human chorionic gonado tropin detection for pregnancyOrdered By: Kari Vanegas on 03-20-2025 HCG ( test) Ql 76 mIU/mL High <9 [facility] Comment on above: Gestational Age0.2-1 Week: 5-50 mIU/mL1-2 Weeks: 50-500 mIU/mL2-3 Weeks: 100-5000 mIU/mL3-4 Weeks: 500-10,000 mIU/mL4-5 Weeks:1000-50,000 mIU/mL5-6 Weeks: 10,000-100,000 mIU/mL6-8 Weeks: 15,000-200,000 mIU/mL2-3 Months:10,000-100,000 mIU/mL hCG Titer Quant., Serumon HCG QUANT. 76 mIU/mL High <9 non-preg [facility] Comment on above: Result Comment: Gest ational Age 0.2-1 Week: 5-50 mIU/mL 1-2 Weeks: 50-500 mIU/mL 2-3 Weeks: 100-5000 mIU/mL 3-4 Weeks: 500-10,000 mIU/mL 4-5 Weeks:1000-50,000 mIU/mL 5-6 Weeks: 10,000-100,000 mIU/mL 6-8 Weeks: 15,000-200,000 mIU/mL 2-3 Months:10,000-100,000 mIU/mL Performed By: #### M 100.2200, L7000.1800 #### [facility] [address] 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 DynamicsSISUID Normal [facility] CBC W Auto Differential pane l (Bld)on 08-27-2024 Basophils (Bld) [#/Vol] 0.03 10*3/uL [facility] Comment on above: Differential confirm ed by visual scan of peripheral blood smear slide. Basophils/100 WBC (Bld) 0.5 % [facility] Differential cell count method Nom (Bld) Auto [facility] Eosinophils (Bld) [#/Vol] 0.08 10*3/uL [facility] Eosinophils/100 WBC (Bld) 1.3 % [facility] Erythrocyte distribution width (RBC) [Ratio] 12.3 % 11.5 - 15.0 % [facility] Hematocrit (Bld) [Volume fraction] 41.3 % 36.0 - 46.0 % [facility] Hemoglobin (d) [Mass/Vol] 13.2 g/dL 11.5 - 15.5 g/dL [facility] Immature granulocytes (Bld) [#/Vol] [facility]F [facility] Immature granulocytes/100 WBC (Bld) 0.2 % [facility] Lymphocytes (Bld) [#/Vol] 2.22 10*3/uL [facility] Lymphocytes/100 WBC (Bld) 36.7 % [facility] MCH (RBC) [Entitic mass] 29.1 pg 26. 0 - 34.0 pg [facility] MCHC (RBC) [Mass/Vol] 32.0 g/dL 30.5 - 36.0 g/dL [facility] MCV (RBC) [Entitic vol] 91.0 fL 80.0 - 100.0 fL [facility] Monocytes (Bld) [#/Vol] 0.64 10*3/uL [facility] Monocytes/100 WBC (Bld) 10.6 % [facility] Neutrophils (Bld) [#/Vol] 3.07 10*3/uL [facility] Neutrophils/100 WBC (Bld) 50.7 % [facility] Nucleated RBC (Bld) [#/Vol] [facility] Nucleated RBC/100 WBC (Bld) [Ratio] [facility] Platelet mean volume (Bld) [Entitic vol] 9.8 fL 9.0 - 12.7 fL [facility] Platelets (Bld) [#/Vol] 278 10*3/uL [facility] Platelets Estimate (Bld) [#/Vol] Adequate [facility] RBC (Bld) [#/Vol] 4.54 10*6/uL 3.90 - 5.2 0 m/uL [facility] Red Cell Morph Reviewed: normal [facility] WBC (Bld) [#/Vol] 6.05 10*3/uL [facility] This is an appended report. These results have been appended to a previously verified report. [facility] Basophils (Bld) [#/Vol] 0.03 10*3/uL Normal <0.11 [facility] Comment on above: Order Comment: Speci men Type: BLOOD SPECIMEN Ordering Facility: [facility] Address: [address] [place] [address] Result Comment: Diff erential confirmed by visual scan of peripheral blood smear slide. Performed By: #### 5 7021-8 #### [facility] CLIA [id number] [address] [place] [address] [place] Basophils/100 WBC (Bld) 0.5 % Normal [facility] Comment on above: Order Comment: Speci men Type: BLOOD SPECIMEN Ordering Facility: [facility] Address: [address] [place] [address] Performed By: #### 5 7021-8 #### [facility] CLIA [id number] [address] [place] [address] [place] Differential cell count method Nom (Bld) Auto Normal [facility] Comment on above: Order Comment: Speci men Type: BLOOD SPECIMEN Ordering Facility: [facility] Address: [address] [place] [address] Performed By: #### 5 7021-8 #### [facility] CLIA [id number] [address] [place] [address] [place] Eosinophils (Bld) [#/Vol] 0.08 10*3/uL Normal <0.46 [facility] Comment on above: Order Comment: Speci men Type: BLOOD SPECIMEN Ordering Facility: [facility] Address: [address] [place] [address] Performed By: #### 5 7021-8 #### [facility] CLIA [id number] [address] [place] [address] [facility] Eosinophils/100 WBC (Bld) 1.3 % Normal [facility] Comment on above: Order Comment: Speci men Type: BLOOD SPECIMEN Ordering Facility: [facility] Address: [address] [place] [address] Performed By: #### 5 7021-8 #### [facility] CLIA [id number] [address] [place] [address] [place] Erythrocyte distribution width (RBC) [Ratio] 12.3 % Normal 11.5-15.0 [facility] Comment on above: Order Comment: Speci men Type: BLOOD SPECIMEN Ordering Facility: [facility] Address: [address] [place] [address] Performed By: #### 5 7021-8 #### [facility] CLIA [id number] [address] [place] [address] [place] Hematocrit (Bld) [Volume fraction] 41.3 % Normal 36.0-46.0 [facility] Comment on above: Order Comment: Speci men Type: BLOOD SPECIMEN Ordering Facility: [facility] Address: [address] [place] [address] Performed By: #### 5 7021-8 #### [facility] CLIA [id number] [address] [place] [address] [place] Hemoglobin (Bld) [Mass/Vol] 13.2 g/dL Normal 11.5-15.5 [facility] Comment on above: Order Comment: Speci men Type: BLOOD SPECIMEN Ordering Facility: [facility] Address: [address] [place] [address] Performed By: #### 5 7021-8 #### [facility] CLIA [id number] [address] [place] [address] [place] Immature granulocytes (Bld) [#/Vol] 10*3/uL Normal <0.10 [facility] Comment on above: Order Comment: Speci men Type: BLOOD SPECIMEN Ordering Facility: [facility] Address: [address] [place] [address] Performed By: #### 5 7021-8 #### [facility] CLIA [id number] [address] [place] [address] [place] Immature granulocytes/100 WBC (Bld) 0.2 % Normal [facility] Comment on above: Order Comment: Speci men Type: BLOOD SPECIMEN Ordering Facility: [facility] Address: [address] [place] [address] Performed By: #### 5 7021-8 #### [facility] CLIA [id number] [address] [place] [address] [place] Lymphocytes (Bld) [#/Vol] 2.22 10*3/uL Normal 1.00-4.00 [facility] Comment on above: Order Comment: Speci men Type: BLOOD SPECIMEN Ordering Facility: [facility] Address: [address] [place] [address] Performed By: #### 5 7021-8 #### [facility] CLIA [id number] [address] [place], [place] [address] [place] [address] [facility] Lymphocytes/100 WBC (Bld) 36.7 % Normal [facility] Comment on above: Order Comment: Speci men Type: BLOOD SPECIMEN Ordering Facility: [facility] Address: [address] [place] [address] Performed By: #### 5 7021-8 #### [facility] CLIA [id number] [address] [place] MCH (RBC) [Entitic mass] 29.1 pg Normal 26.0-34.0 [facility] Comment on above: Order Comment: Speci men Type: BLOOD SPECIMEN Ordering Facility: [facility] Address: [address] [place] [address] Performed By: #### 5 7021-8 #### [facility] CLIA [id number] [address] [place] MCHC (RBC) [Mass/Vol] 32.0 g/dL Normal 30.5-36.0 [facility] Comment on above: Order Comment: Speci men Type: BLOOD SPECIMEN Ordering Facility: [facility] Address: [address] [place] [address] Performed By: #### 5 7021-8 #### [facility] CLIA [id number] [address] [place] [address] [place] MCV (RBC) [Entitic vol] 91.0 fL Normal 80.0-100.0 C [facility] Comment on above: Order Comment: Speci men Type: BLOOD SPECIMEN Ordering Facility: [facility] Address: [address] [place] [address] Performed By: #### 5 7021-8 #### [facility] CLIA [id number] [address] [place] [address] [place] Monocytes (Bld) [#/Vol] 0.64 10*3/uL Normal <0.87 [facility] Comment on above: Order Comment: Speci men Type: BLOOD SPECIMEN Ordering Facility: [facility] Address: [address] [place] [address] Performed By: #### 5 7021-8 #### [facility] CLIA [id number] [address] [place] [address] [place] Monocytes/100 WBC (Bld) 10.6 % Normal [facility] Comment on above: Order Comment: Speci men Type: BLOOD SPECIMEN Ordering Facility: [facility] Address: [address] [place] [address] Performed By: #### 5 7021-8 #### [facility] CLIA [id number] [address] [place] [address] [place] Neutrophils (Bld) [#/Vol] 3.07 10*3/uL Normal 1.45-7.50 [facility] Comment on above: Order Comment: Speci men Type: BLOOD SPECIMEN Ordering Facility: [facility] Address: [address] [place] [address] Performed By: #### 5 7021-8 #### [facility] CLIA [id number] [address] [place] [address] [place] Neutrophils/100 WBC (Bld) 50.7 % Normal [facility] Comment on above: Order Comment: Speci men Type: BLOOD SPECIMEN Ordering Facility: [facility] Address: [address] [place] [address] Performed By: #### 5 7021-8 #### [facility] CLIA [id number] [address] [place] [address] [place] Nucleated RBC (Bld) [#/Vol] Normal [facility] Comment on above: Order Comment: Speci men Type: BLOOD SPECIMEN Ordering Facility: [facility] Address: [address] [place] [address] Performed By: #### 5 7021-8 #### [facility] CLIA [id number] [address] [place] [address] [place] Nucleated RBC/100 WBC (Bld) [Ratio] Normal [facility] Comment on above: Order Comment: Speci men Type: BLOOD SPECIMEN Ordering Facility: [facility] Address: [address] [place] [address] Performed By: #### 5 7021-8 #### [facility] CLIA [id number] [address] [place] [address] [place] Platelet mean volume (Bld) [Entitic vol] 9.8 fL Normal 9.0-12.7 [facility] Comment on above: Order Comment: Speci men Type: BLOOD SPECIMEN Ordering Facility: [facility] Address: [address] [place] [address] Performed By: #### 5 7021-8 #### [facility] CLIA [id number] [address] [place] [address] [place] Platelets (Bld) [#/Vol] 278 10*3/uL Normal 150-400 [facility] Comment on above: Order Comment: Speci men Type: BLOOD SPECIMEN Ordering Facility: [facility] Address: [address] [place] [address] Performed By: #### 5 7021-8 #### [facility] CLIA [id number] [address] [place] [address] [place] Platelets Estimate (Bld) [#/Vol] Adequate Normal [facility] Comment on above: Order Comment: Speci men Type: BLOOD SPECIMEN Ordering Facility: [facility] Address: [address] [place] [address] Performed By: #### 5 7021-8 #### [facility] CLIA [id number] [address] [place] [address] [place] RBC (Bld) [#/Vol] 4.54 10*6/uL Normal 3.90-5.20 [facility] Comment on above: Order Comment: Speci men Type: BLOOD SPECIMEN Ordering Facility: [facility] Address: [address] [place] [address] Performed By: #### 5 7021-8 #### [facility] CLIA [id number] [address] [place] [address] [employer] [place] [employer] Reviewed: normal Normal [facility] Comment on above: Order Comment: Chavezi men Type: BLOOD SPECIMEN Ordering Facility: [facility] Address: [address] [place] [address] Performed By: #### 5 7021-8 #### [facility] CLIA [id number] [address] [place] [address] [facility] [place] WBC (Bld) [#/Vol] 6.05 10*3/uL Normal 3.70-11.00 [facility] Comment on above: Order Comment: Chavezi men Type: BLOOD SPECIMEN Ordering Facility: [facility] Address: [address] [place] [address] Performed By: #### 5 7021-8 #### [facility] CLIA [id number] [address] [place], [place] [address] [employer] [facility] CNOVon 08-27-2024 CNOV Office Visit (FAMPWS) KIM LOTT ([id number]) 1995 F Date Time Provider Department 08/27/24 1:00 PM [facility]OPE[facility] During your visit today, we recorded the [...] No history of dysuria, frequency or incontinence [employer]ERCIAL [employer]: Negative for abnormal vaginal bleeding, abnormal vaginal [...] or cy (more content not included)... Normal [facility] Comprehensive metabolic 2000 panelon 08-27-2024 Albumin [Mass/Vol] 4.6 g/dL 3.9 - 4.9 g/dL [facility] ALP [Catalytic activity/Vol] 96 U/L 34 - 123 U/L [facility] ALT With P-5'-P [Catalytic activity/Vol] 6 U/L Low 7 - 38 U/L [facility] Anion gap [Moles/Vol] 9 mmol/L 8 - 15 mmol/L [facility] AST With P-5'-P [Catalytic activity/Vol] 14 U/L 13 - 35 U/L [facility] Bilirubin [Mass/Vol] 0.3 mg/dL 0.2 - 1 .3 mg/dL [facility] Calcium [Mass/Vol] 9.7 mg/dL 8.5 - 10. 2 mg/dL [facility] Chloride [Moles/Vol] 101 mmol/L 98 - 10 7 mmol/L [facility] CO2 [Moles/Vol] 29 mmol/L 22 - 30 mmol/L [facility] Creatinine [Mass/Vol] 0.80 mg/dL 0.58 - 0.96 mg/dL [facility] GFR/1.73 sq M.predicted among non-blacks MDRD (S/P/Bld) [Vol rate/Area] 102 mL/min/{1.73_m2} - PINF [facility] Comment on above: Estimated Glomerular Filtration [...] [Mass/Vol] 95 mg/dL 74 - 99 mg/dL [facility] Comment on above: The [place] Diabete s Association (ADA) provides guidance for [...] Standards of Medical Care in Diabetes 2016, [place] Diabetes Association. Diabetes Care. 2016.39(Suppl 1). Interpretation and review of laboratory results Abnormal [facility] Potassium [Moles/Vol] 4.2 mmol/L 3.7 - 5.1 mmol/L [facility] Protein [Mass/Vol] 7.5 g/dL 6.3 - 8.0 g/dL [facility] Sodium [Moles/Vol] 139 mmol/L 136 - 144 mmol/L [facility] Urea nitrogen [Mass/Vol] 14 mg/dL 7 - 21 mg/d L [facility] Albumin [Mass/Vol] 4.6 g/dL Normal 3.9-4.9 [facility] Comment on above: Order Comment: Speci men Type: BLOOD SPECIMEN Ordering Facility: [facility] Address: [address] [place] [address] Performed By: #### 5 7021-8 #### [facility] CLIA [id number] [address] [place] [address] [place] ALP [Catalytic activity/Vol] 96 U/L Normal 34-123 [facility] Comment on above: Order Comment: Speci men Type: BLOOD SPECIMEN Ordering Facility: [facility] Address: [address] [place] [address] Performed By: #### 5 7021-8 #### [facility] CLIA [id number] [address] [place] [address] [place] ALT With P-5'-P [Catalytic activity/Vol] 6 U/L Low 7-38 [facility] Comment on above: Order Comment: Speci men Type: BLOOD SPECIMEN Ordering Facility: [facility] Address: [address] [place] [address] Performed By: #### 5 7021-8 #### [facility] CLIA [id number] [address] [place] [address] [place] Anion gap [Moles/Vol] 9 mmol/L Normal 8-15 [facility] Comment on above: Order Comment: Speci men Type: BLOOD SPECIMEN Ordering Facility: [facility] Address: [address] [place] [address] Performed By: #### 5 7021-8 #### [facility] CLIA [id number] [address] [place] [address] [place] AST With P-5'-P [Catalytic activity/Vol] 14 U/L Normal 13-35 [facility] Comment on above: Order Comment: Speci men Type: BLOOD SPECIMEN Ordering Facility: [facility] Address: [address] [place] [address] Performed By: #### 5 7021-8 #### [facility] CLIA [id number] [address] [place] [address] [place] Bilirubin [Mass/Vol] 0.3 mg/dL Normal 0.2-1.3 [facility] Comment on above: Order Comment: Speci men Type: BLOOD SPECIMEN Ordering Facility: [facility] Address: [address] [place] [address] Performed By: #### 5 7021-8 #### [facility] CLIA [id number] [address] [place] [address] [place] Calcium [Mass/Vol] 9.7 mg/dL Normal 8.5-10.2 [facility] Comment on above: Order Comment: Speci men Type: BLOOD SPECIMEN Ordering Facility: [facility] Address: [address] [place] [address] Performed By: #### 5 7021-8 #### [facility] CLIA [id number] [address] [place] [address] [place] Chloride [Moles/Vol] 101 mmol/L Normal 98-107 [facility] Comment on above: Order Comment: Speci men Type: BLOOD SPECIMEN Ordering Facility: [facility] Address: [address] [place] [address] Performed By: #### 5 7021-8 #### [facility] CLIA [id number] [address] [place] [address] [place] CO2 [Moles/Vol] 29 mmol/L Normal 22-30 [facility] Comment on above: Order Comment: Nevaeh graves Type: BLOOD SPECIMEN Ordering Facility: [facility] Address: [address] [place] [address] Performed By: #### 5 7021-8 #### [facility] CLIA [id number] [address] [place] [address] [place] [facility] Creatinine [Mass/Vol] 0.80 mg/dL Normal 0.58-0.96 [facility] Comment on above: Order Comment: Nevaeh graves Type: BLOOD SPECIMEN Ordering Facility: [facility] Address: [address] [place] [address] Performed By: #### 5 7021-8 #### [facility] CLIA [id number] [address] [place] [address] [employer] [facility] Creatinine and Glomerular filtration rate.predicted panel (S/P/Bld) 102 mL/min/1.73m??? Normal >=60 [facility] Comment on above: Order Comment: Nevaeh graves Type: BLOOD SPECIMEN Ordering Facility: [facility] Address: [address] [place] [address] Result Comment: Juana mated Glomerular Filtration Rate [...] GFR. Performed By: #### 5 7021-8 #### [facility] CLIA [id number] [address] [place] [address] [place] Glucose [Mass/Vol] 95 mg/dL Normal 74-99 [facility] Comment on above: Order Comment: Nevaeh graves Type: BLOOD SPECIMEN Ordering Facility: [facility] Address: [address] [place] [address] Result Comment: The Tr[place] Diabetes Association (ADA) provides guidance for cutoff [...] Standards of Medical Care in Diabetes 2016, [place] Diabetes Association. Diabetes Care. 2016.39(Suppl 1). Performed By: #### 5 7021-8 #### [facility] CLIA [id number] [address] [place] [address] [place] Potassium [Moles/Vol] 4.2 mmol/L Normal 3.7-5.1 [facility] Comment on above: Order Comment: Nevaeh graves Type: BLOOD SPECIMEN Ordering Facility: [facility] Address: [address] [place] [address] Performed By: #### 5 7021-8 #### [facility] CLIA [id number] [address] [place] [address] [place] Protein [Mass/Vol] 7.5 g/dL Normal 6.3-8.0 [facility] Comment on above: Order Comment: Nevaeh graves Type: BLOOD SPECIMEN Ordering Facility: [facility] Address: [address] [place] [address] Performed By: #### 5 7021-8 #### [facility] CLIA [id number] [address] [place] [address] [place] Sodium [Moles/Vol] 139 mmol/L Normal 136-144 [facility] Comment on above: Order Comment: Chavezi men Type: BLOOD SPECIMEN Ordering Facility: [facility] Address: [address] [place] [address] Performed By: #### 5 7021-8 #### [facility] CLIA [id number] [address] [place] [address] [place] Urea nitrogen [Mass/Vol] 14 mg/dL Normal 7-21 [facility] Comment on above: Order Comment: Speci men Type: BLOOD SPECIMEN Ordering Facility: [facility] Address: [address] [place] [address] Performed By: #### 5 7021-8 #### [facility] CLIA [id number] [address] [place], [place] [address] [facility] D dimer FEU PPP-mCncon 08-27 Fibrin D-dimer FEU (PPP) [Mass/Vol] <190 Normal <500 [facility] Comment on above: Order Comment: Speci men Type: BLOOD SPECIMEN Ordering Facility: [facility] Address: [address] [place] [address] Performed By: #### 4 8065-7 #### [facility] CLIA [id number] [address] [place] [address] D-DIMEROrdered By: Dai Amador on 08-27-2024 Fibrin D-dimer FEU (PPP) [Mass/Vol] [facility] ECG COMPLETEon 08-27-2024 ECG COMPLETE Ventricular Rate : 77 BPM Atrial Rate : 77 BPM P-R Interval : 154 ms QRS Duration : 76 ms Q-T Interval : 398 ms QTC Calculation(Bazett) : 450 ms Calculated P [place] : 50 degrees Calculated R [place] : 68 degrees Calculated T [place] : 36 degrees NORMAL SINUS RHYTHM NORMAL ECG Confirmed by MD VILLAGOMEZ QARAB ([id number]) on 08/28/2024 9:46:53 AM NAME : KIM LOTT PID : [id number] : 1995 Gender : Female Race : ORD : [id number] Procedure Date : Aug 27 2024 13:15:04 Edit Date : Aug 28 2024 09:46:54 Diagnosis: NORMAL SINUS RHYTHM NORMAL ECG Confirmed by MD VILLAGOMEZ QARAB ([id number]) on 08/28/2024 9:46:53 AM Test Reason : R07.9 Chest pain, unspecified type Location : 185 : [facility] Overread By : MD VILLAGOMEZ QARAB Edited By : MD VILLAGOMEZ QARAB Referred By : , Acquired by : Josh Genao, Valentine [facility] Fibrin D-dimer FEU (PPP) [Ma ss/Vol]Ordered By: Dai Amador on 08-27-2024 Interpretation and review of laboratory results Normal [facility] 500 ng/mL FEU is the D [...] M, et al. MYNOR 2014 311:1117 and Corbin Baker N, et al. Adele Int Med 2016 165:253. [facility] LIPID PANEL, NONFASTINGon Cholesterol [Mass/Vol] 165 mg/dL NINF - 200 mg/dL [facility] Comment on above: <200 mg/dL, Desirabl e 200-239 mg/dL, Borderline high >239 mg/dL, High HDL Cholesterol, Nonfasting 69 mg/dL 39 - PINF mg/dL [facility] Comment on above: 40-59 mg/dL, Accepta ble >59 mg/dL, High: Negative risk factor for coronary heart disease <40 mg/dL, Low: Positive risk factor for coronary heart disease LDL Cholesterol, Nonfasting 78 mg/dL NINF - 100 mg/dL [facility] Comment on above: <100 mg/dL, Optimal 100-129 mg/dL, Near optimal/above optimal 130-159 mg/dL, Borderline high 160-189 mg/dL, High >189 mg/dL, Very high Secondary prevention optimal LDL Cholesterol levels are recommended to be < 70 mg/dL LDL/HDL Ratio, Nonfasting 1.13 mg/dL NINF - 2.54 mg/dL [facility] Comment on above: Reference: 1. National Cholesterol Education Program ATP III Guideline At-A-Glance Quick Desk Reference: National Heart, Lung, and Blood Dairy. National Institutes of Health. 2001: NIH Publication No. 01-3305. 2. An International Atherosclerosis Society position paper: global recommendations for the management of dyslipidemia: executive summary, Atherosclerosis. 2014: 232(2):410-413. Non HDL Cholesterol, Nonfasting 96 mg/dL NINF - 130 mg/dL [facility] Comment on above: <130 mg/dL, Optimal 130-159 mg/dL, Near optimal/above optimal 160-189 mg/dL, Borderline high 190-219 mg/dL, High >219 mg/dL, Very high Secondary prevention optimal non HDL Cholesterol levels are recommended to be <100 mg/dL Total Chol/HDL Ratio, Nonfasting 2.39 mg/dL NINF - 5.10 mg/dL [facility] Triglycerides, Nonfasting 88 mg/dL NINF - 150 mg/dL [facility] Comment on above: <150 mg/dL, Normal 150-199 mg/dL, Borderline high 200-499 mg/dL, High >499 mg/dL, Very high VLDL Cholesterol, Nonfasting 18 mg/dL NINF - 30 mg/dL [facility] Cholesterol [Mass/Vol] 165 mg/dL Normal <200 [facility] Comment on above: Order Comment: Nevaeh graves Type: BLOOD SPECIMEN Ordering Facility: [facility] Address: [address] [place] [address] Result Comment: <200 mg/dL, Desirable 200-239 mg/dL, Borderline high >239 mg/dL, High Performed By: #### 5 7021-8 #### [facility] CLIA [id number] [address] [place] [address] HDL CHOLESTEROL, NF 69 mg/dL Normal >39 [facility] Comment on above: Order Comment: Nevaeh graves Type: BLOOD SPECIMEN Ordering Facility: [facility] Address: [address] [place] [address] Result Comment: 40-5 9 mg/dL, Acceptable >59 mg/dL, High: Negative risk factor for coronary heart disease <40 mg/dL, Low: Positive risk factor for coronary heart disease Performed By: #### 5 7021-8 #### [facility] CLIA [id number] [address] [place] [address] [facility] LDL CHOLESTEROL, NF 78 mg/dL Normal <100 [facility] Comment on above: Order Comment: Nevaeh graves Type: BLOOD SPECIMEN Ordering Facility: [facility] Address: [address] [place] [address] Result Comment: <100 mg/dL, Optimal 100-129 mg/dL, Near optimal/above optimal 130-159 mg/dL, Borderline high 160-189 mg/dL, High >189 mg/dL, Very high Secondary prevention optimal LDL Cholesterol levels are recommended to be < 70 mg/dL Performed By: #### 5 7021-8 #### [facility] CLIA [id number] [address] LDL/HDL RATIO, NF 1.13 mg/dL Normal <2.54 [facility] Comment on above: Order Comment: Nevaeh graves Type: BLOOD SPECIMEN Ordering Facility: [facility] Address: [address] [place] [address] Result Comment: Refe rence: 1. National Cholesterol Education Program ATP III Guideline At-A-Glance Quick Desk Reference: National Heart, Lung, and Blood Dairy. National Institutes of Health. 2001: NIH Publication No. 01-3305. 2. An International Atherosclerosis Society position paper: global recommendations for the management of dyslipidemia: executive summary, Atherosclerosis. 2014: 232(2):410-413. Performed By: #### 5 7021-8 #### [facility] CLIA [id number] [address] [place], [place] [address] [facility] NON HDL CHOL, NF 96 mg/dL Normal <130 [facility] Comment on above: Order Comment: Nevaeh graves Type: BLOOD SPECIMEN Ordering Facility: [facility] Address: [address] [place] [address] Result Comment: <130 mg/dL, Optimal 130-159 mg/dL, Near optimal/above optimal 160-189 mg/dL, Borderline high 190-219 mg/dL, High >219 mg/dL, Very high Secondary prevention optimal non HDL Cholesterol levels are recommended to be <100 mg/dL Performed By: #### 5 7021-8 #### [facility] CLIA [id number] [address] [place] [address] [facility] T CHOL/HDL RATIO NF 2.39 mg/dL Normal <5.10 [facility] Comment on above: Order Comment: Nevaeh graves Type: BLOOD SPECIMEN Ordering Facility: [facility] Address: [address] [place] [address] Performed By: #### 5 7021-8 #### [facility] CLIA [id number] [address] [place] [address] [facility] TRIGLYCERIDES, NF 88 mg/dL Normal <150 [facility] Comment on above: Order Comment: Nevaeh graves Type: BLOOD SPECIMEN Ordering Facility: [facility] Address: [address] [place] [address] Result Comment: <150 mg/dL, Normal 150-199 mg/dL, Borderline high 200-499 mg/dL, High >499 mg/dL, Very high Performed By: #### 5 7021-8 #### [facility] CLIA [id number] [address] [place] [address] [facility] VLDL CHOLESTEROL, NF 18 mg/dL Normal <30 [facility] Comment on above: Order Comment: Nevaeh graves Type: BLOOD SPECIMEN Ordering Facility: [facility] Address: [address] [place] [address] Performed By: #### 5 7021-8 #### [facility] CLIA [id number] [address] [place] [address] [facility] No Panel Informationon 08-27 Interpretation and review of laboratory results Normal [facility] THYROID STIMULATING HORMONEo n 08-27-2024 TSH Qn 0.797 m[IU]/L [facility] Comment on above: If the patient is pr egnant, TSH reference range varies by gestational period: First Trimester (weeks 9-12): 0.180-2.990 mIU/L Second Trimester: 0.110-3.980 mIU/L Third Trimester: 0.480-4.710 mIU/L Jose Alejandro L, et al. A Practical Approach for the Verifications and Determination of Site- and Trimester-Specific Reference Intervals for Thyroid Function tests in . Thyroid, 2019:29:3:412-420. Fahad Gross et al. 2017 Guidelines of the [place] Thy[employer] Association for the Diagnosis and Management of Thyroid Disease during and the . Thyroid, 2017:27:3:315-389. TSH SerPl-aCncon 08-27-2024 TSH Qn 0.797 m[IU]/L Normal 0.270-4.200 [facility] Comment on above: Order Comment: Speci men Type: BLOOD SPECIMEN Ordering Facility: [facility] Address: [address] [place] [address] Result Comment: If t he patient is [...] Gross et al. 2017 Guidelines of the [place] Thy[employer] Association for the Diagnosis and Management of Thyroid Disease during and the . Thyroid, 2017:27:3:315-389. Performed By: #### 5 [id number] #### [facility] CLIA [id number] [address] [place] [address] [place] OF [place] XR CHEST 2V FRONTAL/LATon XR CHEST 2V [...] tissues: Unremarkable. IMPRESSION: No acute radiographic abnormality. Rollway Man: PSCB Transcribe Date/Time: Aug 27 2024 1:53P Dictated by : HEATHER CROOK MD This examination was interpreted and the report reviewed and electronically signed by: HEATHER CROOK MD on Aug 27 2024 1:54PM EST [id number] CN Normal [facility] XR Chest PA and Lateralon Radiology Study observation (narrative) [facility] IMPRESSION: No acute radiographic abnormality. [place] Man: PSCB Transcribe Date/Time: Aug 27 2024 1:53P [...] soft tissues: Unremarkable. DIVISION OF RADIOLOGY Provider, [facility] - 08/27/2024 * * *Final Report* * [...] Unremarkable. IMPRESSION IMPRESSION: No acute radiographic abnormality. Rollway Man: APOLINAR Transcribe Date/Time: Aug 27 2024 1:53P Dictated by : HEATHER CROOK MD This examination was interpreted and the report reviewed and electronically signed by: HEATHER CROOK MD on Aug 27 2024 1:54PM EST [facility] XR Chest PA and LateralOrder ed By: Ccf Provider on 08-27-2024 [facility] CNOVon 06-05-2024 CNOV Office Visit (INTMWS) KIM LOTT ([id number]) 1995 F Date Time Provider Department 06/05/24 1:20 PM JESICA JOHNSON INTMWS During your visit today, we recorded the following information about you: Temperature Pulse Respiration Blood pressure 100.3 degrees 109/minute 16/minute 101/64 Weight 75.6 kg Jesica Johnson, LOTUS.MID LEVEL JAVA DEVELOPER 06/05/2024 2:00 PM Signed SUBJECTIVE Kim Lott is a 29 year old female who presents with 2 days of symptoms that are worsening. She reports was seen at [facility] and advised she may have walking [...] complete if needed/not improving . Jesica Johnson APRN.MID LEVEL JAVA DEVELOPER Medical Decision Making: Problems: Low: Acute, uncomplicated illness or injury Data: Unique test(s) ordered: 1 Risk: Moderate: Drug management Medical Decision Making Level: 3 - Low Allergies As of Date: 06/05/2024 Noted Allergy Reaction POLLEN EXTRACTS 04/30/2017 14 - Other: See Comments Date Reviewed: 06/05/2024 Reviewed by: Jesica Johnson APRN.MID LEVEL JAVA DEVELOPER - Fully Assessed Reason for Visit: Cough [...] 30 EachRfl: 0 XR CHEST 2V FRONTAL/LAT [[id number]] Order #: [id number] FUTURE Prescriptions as of 06/05/2024 - acetaminophen [...] MDM 2 (more content not included)... Normal [facility] Absolute lymphocyte countOrd ered By: Nicolle Lagos on 12-03-2023 Lymphocytes Auto (Unsp spec) [#/Vol] 1.45 10*3/uL 0.83-4.51 [facility] Automated lymphocyte count a s percentage of total leukocytesOrdered By: Nicolle Lagos on 12-03-2023 Lymphocytes/100 WBC Auto (Unsp spec) 15.8 % 19-41 [facility] Basophil percentageOrdered B y: Nicolle Lagos on 12-03-2023 Basophils/100 WBC (Bld) 0.5 % 0-1 [facility] Eosinophils/100 WBC (Bld) 0.7 % 0-5 [facility] Hemoglobin (Bld) [Mass/Vol] 11.3 g/dL 12.0-15.0 [facility] Monocytes/100 WBC (Bld) 8.9 % 0-10 [facility] Neutrophils (Bld) [#/Vol] 6.7 10*3/uL 2.0-7.7 [facility] Neutrophils/100 WBC (Bld) 73.2 % 47-70 [facility] WBC (Bld) [#/Vol] 9.2 10*3/uL 4.4-11.0 [facility] Determination of erythrocyte mean corpuscular volume (MCV)Ordered By: Nicolle Lagos on 12-03-2023 MCV (RBC) [Entitic vol] 93.3 fL 81-99 [facility] Erythrocyte distribution wid th ratioOrdered By: Nicolle Lagos on 12-03-2023 Erythrocyte distribution width (RBC) [Ratio] 12.0 % 11.6-14.6 [facility] Erythrocyte distribution wid th standard deviationOrdered By: Nicolle Lagos on 12-03-2023 Erythrocyte distribution width (RBC) [Entitic vol] 40.9 fL 35.1-43.9 [facility] Gestational diabetes screen 1-hour screen with 50g oral glucose loadOrdered By: Nicolle Lagos on 12-03-2023 Glucose 1 Hr post 50 g glucose PO [Mass/Vol] 109 mg/dL 70-140 [facility] HIV 1 and HIV-2 antibody ass ay with HIV-1 p24 antigen detectionOrdered By: Nicolle Lagos on 12-03-2023 HIV 1+2 Ab+HIV1 p24 Ag IA Ql Non-Reactive Nonreactive [facility] Hematocrit Auto (Bld) [Volum e fraction]Ordered By: Nicolle Lagos on 12-03-2023 Hematocrit (Bld) [Volume fraction] 34.6 % 37-47 [facility] Immature granulocytes/100 WB C Auto (Bld)Ordered By: Nicolle Lagos on 12-03-2023 Immature granulocytes/100 WBC (Bld) 0.900 % 0.0-0.9 [facility] Comment on above: IG% - Immature Granu locytes (promyelocytes, myelocytes and metamyelocytes) > 1% indicates that a LEFT SHIFT is Present. Laboratory - Hematology and Cell countsOrdered By: Nicolle Lagos on 12-03-2023 MCH (RBC) [Entitic mass] 30.5 pg 27.0-32.0 [facility] MCHC (RBC) [Mass/Vol] 32.7 g/dL 32-36 [facility] Nucleated RBC/100 WBC (Bld) [Ratio] 0 % 0-5 [facility] Platelet mean volume (Bld) [Entitic vol] 8.6 fL 6.2-12.0 [facility] Platelets (Bld) [#/Vol] 230 10*3/uL 150-450 [facility] RBC Auto (Bld) [#/Vol]Ordere d By: Nicolle Lagos on 12-03-2023 RBC (Bld) [#/Vol] 3.71 10*6/uL 4.2-5.4 [facility] Serum Treponema species anti body detectionOrdered By: Nicolle Lagos on 12-03-2023 Treponema sp Ab Ql (S) Non-Reactive [facility] Laboratory - Chemistry and C hemistry - challengeon 11-05-2023 Glucose Ql (U) Negative [facility] Laboratory - Urinalysison Protein Ql (U) Negative [facility] Laboratory - Chemistry and C hemistry - challengeon 10-04-2023 Glucose Ql (U) Negative [facility] Laboratory - Urinalysison Protein Ql (U) Negative [facility] Laboratory - Chemistry and C hemistry - challengeon 09-27-2023 Glucose Ql (U) Negative [facility] Laboratory - Urinalysison Protein Ql (U) Negative [facility] Culture, urineOrdered By: Lpue Herrera on 09-21-2023 Bacteria identified Cx Nom (U) Culture exhibits no growth. [facility] Bacteria identified Cx Nom (U) Culture exhibits no growth. [facility] Gram stain for investigation of transfusion reactionOrdered By: Roger Marshall on 09-21-2023 Microscopic observation Gram stain Nom (Unsp spec) [facility] Microscopic observation Gram stain Nom (Unsp spec) [facility] Laboratory - Chemistry and C hemistry - challengeon 09-21-2023 Glucose Ql (U) Negative [facility] Laboratory - Urinalysison Protein Ql (U) Negative [facility] No Panel InformationOrdered By: Roger Marshall on 09-21-2023 Genital Culture [facility] Genital Culture [facility] No Panel Informationon 09-21 POC Bacterial Vaginitis (Rapid) Negative [facility] Laboratory - Chemistry and C hemistry - challengeon 09-12-2023 Glucose Ql (U) Negative [facility] Laboratory - Urinalysison Protein Ql (U) Negative [facility] Gram stain for investigation of transfusion reactionOrdered By: Roger Marshall on 08-28-2023 Microscopic observation Gram stain Nom (Unsp spec) [facility] Microscopic observation Gram stain Nom (Unsp spec) [facility] Laboratory - Chemistry and C hemistry - challengeon 08-28-2023 Glucose Ql (U) Negative [facility] Laboratory - Urinalysison Protein Ql (U) Negative [facility] No Panel InformationOrdered By: Roger Marshall on 08-28-2023 Genital Culture [facility] Genital Culture [facility] No Panel Informationon 08-28 POC Bacterial Vaginitis (Rapid) Negative [facility] Absolute lymphocyte countOrd ered By: Nicolle Martinez on 08-18-2023 Lymphocytes Auto (Unsp spec) [#/Vol] 1.73 10*3/uL 0.83-4.51 [facility] Automated lymphocyte count a s percentage of total leukocytesOrdered By: Nicolle Martinez on 08-18-2023 Lymphocytes/100 WBC Auto (Unsp spec) 24.7 % 19-41 [facility] Basophil percentageOrdered B y: Nicolle Martinez on 08-18-2023 Basophils/100 WBC (Bld) 0.6 % 0-1 [facility] Bilirubin [Mass/Vol] 0.40 mg/dL 0.20-1.00 [facility] Comment on above: For patients on eltr ombopag therapy, use of Dimension [place] TBIL is not recommended. Chloride [Moles/Vol] 105 mmol/L 98-107 [facility] Eosinophils/100 WBC (Bld) 1.4 % 0-5 [facility] Glucose [Mass/Vol] 104 mg/dL 74-106 [facility] Comment on above: Fasting Glucose resu lt from 100 to 125 mg/dL suggests IMPAIRED HOMEOSTASIS per A.D.A. criteria. Hemoglobin (Bld) [Mass/Vol] 12.0 g/dL 12.0-15.0 [facility] Monocytes/100 WBC (Bld) 9.8 % 0-10 [facility] Neutrophils (Bld) [#/Vol] 4.4 10*3/uL 2.0-7.7 [facility] Neutrophils/100 WBC (Bld) 63.2 % 47-70 [facility] Potassium [Moles/Vol] 3.6 mmol/L 3.5-5.1 [facility] Protein [Mass/Vol] 7.0 g/dL 6.4-8.2 [facility] Sodium [Moles/Vol] 136 mmol/L 136-145 [facility] WBC (Bld) [#/Vol] 7.0 10*3/uL 4.4-11.0 [facility] Basophil percentage 0-5 SEEN /hpf 0-5 [facility] Bilirubin Test strip Ql (U)O rdered By: Nicolle Martinez on 08-18-2023 Bilirubin Ql (U) Negative Negative [facility] Determination of erythrocyte mean corpuscular volume (MCV)Ordered By: Nicolle Martinez on 08-18-2023 MCV (RBC) [Entitic vol] 90.8 fL 81-99 [facility] Direct bilirubinOrdered By: Nicolle Martinez on 08-18-2023 Bilirubin.direct [Mass/Vol] 0.12 mg/dL 0.00-0.30 [facility] Erythrocyte distribution wid th ratioOrdered By: Nicolle Martinez on 08-18-2023 Erythrocyte distribution width (RBC) [Ratio] 12.0 % 11.6-14.6 [facility] Erythrocyte distribution wid th standard deviationOrdered By: Nicolle Martinez on 08-18-2023 Erythrocyte distribution width (RBC) [Entitic vol] 40.0 fL 35.1-43.9 [facility] Hematocrit Auto (Bld) [Volum e fraction]Ordered By: Nicolle Martinez on 08-18-2023 Hematocrit (Bld) [Volume fraction] 36.5 % 37-47 [facility] Immature granulocytes/100 WB C Auto (Bld)Ordered By: Nicolle Martinez on 08-18-2023 Immature granulocytes/100 WBC (Bld) 0.300 % 0.0-0.9 [facility] Comment on above: IG% - Immature Granu locytes (promyelocytes, myelocytes and metamyelocytes) > 1% indicates that a LEFT SHIFT is Present. Ketones Test strip Ql (U)Ord ered By: Nicolle Martinez on 08-18-2023 Ketones Ql (U) Negative Negative [facility] Laboratory - Chemistry and C hemistry - challengeOrdered By: Nicolle Martinez on 08-18-2023 ALP [Catalytic activity/Vol] 46 U/L 45-117 [facility] ALT [Catalytic activity/Vol] 9 U/L 13-56 [facility] CO2 [Moles/Vol] 27.0 mmol/L 21.0-32.0 [facility] Globulin (S) [Mass/Vol] 3.7 g/dL 2.2-4.2 [facility] Lipase [Catalytic activity/Vol] 41 U/L 13-75 [facility] Comment on above: Please note:LIPASE r evised reference range effective 22. New Lipase methodology. Expected to produce lower values than the previous assay method. NEW Reference Range: 13 - 75 U/L Urea nitrogen/Creatinine [Mass ratio] 15.0 mg/mg 10-20 [facility] Laboratory - Hematology and Cell countsOrdered By: Nicolle Martinez on 08-18-2023 MCH (RBC) [Entitic mass] 29.9 pg 27.0-32.0 [facility] MCHC (RBC) [Mass/Vol] 32.9 g/dL 32-36 [facility] Nucleated RBC/100 WBC (Bld) [Ratio] 0 % 0-5 [facility] Platelets (Bld) [#/Vol] 234 10*3/uL 150-450 [facility] Mucus LM Ql (Urine sed)Order ed By: Nicolle Martinez on 08-18-2023 Mucus Ql (Urine sed) RARE /hpf [facility] Nitrite Test strip Ql (U)Ord ered By: Nicolle Martinez on 08-18-2023 Nitrite Ql (U) Negative Negative [facility] No Panel InformationOrdered By: Nicolle Martinez on 08-18-2023 Estimated Creatinine Clearance Calc 153.68 ml/min [facility] Estimated GFR (MDRD) Amer 175 mL/min >60 [facility] Comment on above: GFR Calc Estimated GFR (MDRD) Non-Af Amer 144 mL/min >60 [facility] Comment on above: Non- GFR Calc Urine RBC 0-5 SEEN /hpf 0-5 [facility] Platelet mean volume Jeyson-Ec ker (Bld) [Entitic vol]Ordered By: Nicolle Martinez on 08-18-2023 Platelet mean volume (Bld) [Entitic vol] 8.9 fL 6.2-12.0 [facility] Protein Test strip Ql (U)Ord ered By: Nicolle Martinez on 08-18-2023 Protein Ql (U) 15 mg/dl Negative [facility] RBC Auto (Bld) [#/Vol]Ordere d By: Nicolle Martinez on 08-18-2023 RBC (Bld) [#/Vol] 4.02 10*6/uL 4.2-5.4 [facility] Serum or plasma calcium yobani urement (mass/volume)Ordered By: Nicolle Martinez on 08-18-2023 Calcium [Mass/Vol] 9.4 mg/dL 8.5-10.1 oste [facility] Serum or plasma creatinine m easurement (mass/volume)Ordered By: Nicolle Martinez on 08-18-2023 Creatinine [Mass/Vol] 0.53 mg/dL 0.55-1.02 [facility] Comment on above: The validity of the calculated GFR & GFRAA in patients over 70 years has not been determined. Clinical correlation is essential. Serum or plasma urea nitroge n measurement (mass/volume)Ordered By: Nicolle Martinez on 08-18-2023 Urea nitrogen [Mass/Vol] 8 mg/dL 7-18 [facility] Squamous epithelial cells de tection in urine sediment by light microscopyOrdered By: Nicolle Martinez on 08-18-2023 Epithelial cells.squamous LM Ql (Urine sed) 0-5 SEEN /hpf 5-10 [facility] Thin prep Papanicolaou smear with manual screeningOrdered By: Nicolle Martinez on 08-18-2023 Thin prep Papanicolaou smear with manual screening 3.3 g/dL 3.2-5.0 [facility] Thin prep Papanicolaou smear with manual screening 10 U/L 15-37 [facility] Thin prep Papanicolaou smear with manual screening 4 5-15 [facility] Urine blood detectionOrdered By: Nicolle Martinez on 08-18-2023 RBC Ql (U) 10 /ul Negative [facility] Urine clarityOrdered By: Jojo Martinez on 08-18-2023 Clarity (U) Clear Clear [facility] Urine color determinationOrd ered By: Nicolle Martinez on 08-18-2023 Color (U) Yellow Yellow [facility] Urine glucose detectionOrder ed By: Nicolle Martinez on 08-18-2023 Glucose Ql (U) Normal mg/dl Normal [facility] Urine leukocyte esterase det ection by dipstickOrdered By: Nicolle Martinez on 08-18-2023 Leukocyte esterase Test strip Ql (U) 25 /ul Negative [facility] Urine pHOrdered By: Nicolle Martinez on 08-18-2023 pH (U) 6.5 [pH] 5.0 - 8.0 [facility] Urine sediment bacteria coun t by microscopy (number/high power field)Ordered By: Nicolle Martinez on 08-18-2023 Bacteria LM.HPF (Urine sed) [#/Area] RARE /hpf None Seen [facility] Urine specific gravity measu rementOrdered By: Nicolle Martinez on 08-18-2023 Specific gravity (U) [Rel density] 1.020 1.002-1.030 [facility] Urine urobilinogen measureme ntOrdered By: Nicolle Martinez on 08-18-2023 Urobilinogen Ql (U) Normal mg/dl Normal [facility] Absolute lymphocyte countOrd ered By: Roger Marshall on 08-02-2023 Lymphocytes Auto (Unsp spec) [#/Vol] 1.31 10*3/uL 0.83-4.51 [facility] Basophil percentageOrdered B y: Roger Marshall on 08-02-2023 Basophils/100 WBC (Bld) 0.3 % 0-1 [facility] Eosinophils/100 WBC (Bld) 0.6 % 0-5 [facility] Neutrophils (Bld) [#/Vol] 8.1 10*3/uL 2.0-7.7 [facility] Neutrophils/100 WBC (Bld) 76.7 % 47-70 [facility] WBC (Bld) [#/Vol] 10.6 10*3/uL 4.4-11.0 [facility] Blood erythrocytes count (nu mber/volume)Ordered By: Roger Marshall on 08-02-2023 RBC (Bld) [#/Vol] 3.95 10*6/uL 4.2-5.4 [facility] Blood hemoglobin measurement (mass/volume)Ordered By: Roger Marshall on 08-02-2023 Hemoglobin (Bld) [Mass/Vol] 11.9 g/dL 12.0-15.0 [facility] Blood lymphocytes/100 leukoc ytesOrdered By: Roger Marshall on 08-02-2023 Lymphocytes/100 WBC (Bld) 12.4 % 19-41 [facility] Blood monocytes/100 leukocyt esOrdered By: Roger Marshall on 08-02-2023 Monocytes/100 WBC (Bld) 9.6 % 0-10 [facility] Blood platelet mean volumeOr dered By: Roger Marshall on 08-02-2023 Platelet mean volume (Bld) [Entitic vol] 9.1 fL 6.2-12.0 [facility] Cervical or vagninal specime n microscopic examination by cytology stain (reported asOrdered By: Roger Marshall on 08-02-2023 Cytology report Cyto stain Doc (Cvx/Vag) Comment . [facility] Comment on above: The Pap smear is [...] rRNA SEPIDEH+probe Ql (Unsp spec) Negative Negative [facility] Culture, urineOrdered By: Jorden Marshall on 08-02-2023 Bacteria identified Cx Nom (U) Culture exhibits no growth. [facility] Determination of erythrocyte mean corpuscular volume (MCV)Ordered By: Roger Marshall on 08-02-2023 MCV (RBC) [Entitic vol] 90.1 fL 81-99 [facility] HIV 1 and HIV-2 antibody ass ay with HIV-1 p24 antigen detectionOrdered By: Roger Marshall on 08-02-2023 HIV 1+2 Ab+HIV1 p24 Ag IA Ql Non-Reactive Nonreactive [facility] Hematocrit Auto (Bld) [Volum e fraction]Ordered By: Roger Marshall on 08-02-2023 Hematocrit (Bld) [Volume fraction] 35.6 % 37-47 [facility] Laboratory - CytologyOrdered By: Roger Marshall on 08-02-2023 Device Processing Engineer Cyto stain Nom (Cvx/Vag) [ID] Comment . [facility] Comment on above: Bogdan Bradley , Apiculture Teacher (ASCP) Laboratory - Hematology and Cell countsOrdered By: Roger Marshall on 08-02-2023 Erythrocyte distribution width (RBC) [Entitic vol] 39.6 fL 35.1-43.9 [facility] Erythrocyte distribution width (RBC) [Ratio] 12.0 % 11.6-14.6 [facility] Immature granulocytes/100 WBC (Bld) 0.400 % 0.0-0.9 [facility] Comment on above: IG% - Immature Granu locytes (promyelocytes, myelocytes and metamyelocytes) > 1% indicates that a LEFT SHIFT is Present. MCH (RBC) [Entitic mass] 30.1 pg 27.0-32.0 [facility] Nucleated RBC/100 WBC (Bld) [Ratio] 0 % 0-5 [facility] Laboratory - Microbiology an d Antimicrobial susceptibilityOrdered By: Roger Marshall on 08-02-2023 N. gonorrhoeae DNA SEPIDEH+probe Ql (Unsp spec) Negative Negative [facility] Comment on above: Performed at: =G - [facility] [address] [id number] Director: Nohemi Lewis MD, Phone: [phone] Laboratory - Miscellaneous t estsOrdered By: Roger Marshall on 08-02-2023 Service comment (Unsp spec) [Interp] Comment . [facility] Comment on above: This liquid based Th inPrep(R) pap test was screened withthe use of an image guided system. Service comment (Unsp spec) [Interp] . . [facility] ([facility]) [Mass/Vol]Or dered By: Roger Marshall on 08-02-2023 MCHC (RBC) [Mass/Vol] 33.4 g/dL 32-36 [facility] No Panel InformationOrdered By: Roger Marshall on 08-02-2023 Human Papillomavirus Screen Comment . [facility] Comment on above: The HPV DNA reflex c riteria were not met with this specimenresult therefore, no HPV testing was performed.Performed at: [facility] - [facility] [address] [id number] Director: Nohemi Lewis MD, Phone: [phone] Pathology report final diagnosis Narrative Comment . [facility] Comment on above: NEGATIVE FOR INTRAEP ITHELIAL LESION OR MALIGNANCY. Hepatitis B Surface Antigen Non-Reactive Nonreactive [facility] Hepatitis C Antibody Non-Reactive Nonreactive [facility] Comment on above: Non Reactive: < 0.8 Equivocal: >/= 0.8 to < 1.0 Reactive: >/= 1.0The CDC recommends that a reactive/equivocal HCV antibody result be followed up by the HCV Nucleic Acid Amplificationtest (580457) Rubella IgG Antibody Reactive Nonreactive [facility] Comment on above: Antibody Results Int erpretation of Immune Status Non Reactive Presumed Non-Immune Equivocal Equivocal Reactive Presumed Immune Platelets bldOrdered By: Gutierrez Marshall on 08-02-2023 Platelets (Bld) [#/Vol] 268 10*3/uL 150-450 [facility] Serum Treponema species anti body detectionOrdered By: Roger Marshall on 08-02-2023 Treponema sp Ab Ql (S) Non-Reactive [facility] Serum or plasma choriogonado tropin detectionOrdered By: Nicolle Lagos on 07-11-2023 HCG ( test) [place]l [address] mIU/mL <4 [facility] Comment on above: hCG levels with Gest ational AgeGestational Age hCG mIU/mL (IU/L)0.2 - 1 week 5 - 501-2 weeks 50 - 5002-3 weeks 100 - 24892-0 weeks 500 - 579967-7 weeks 1000 - 737442-8 weeks 19512 - 100,0006-8 weeks 69838 - 200,0002-3 months 71431 - 100,000 Basophil percentageOrdered B y: Sherwin Mendoza on 07-09-2023 Basophil percentage 0 SEEN /hpf 0-5 [facility] Bilirubin Test strip Ql (U)O rdered By: Sherwin Mendoza on 07-09-2023 Bilirubin Ql (U) Negative Negative [facility] Ketones Test strip Ql (U)Ord ered By: Sherwin Mendoza on 07-09-2023 Ketones Ql (U) Negative Negative [facility] Mucus LM Ql (Urine sed)Order ed By: Sherwin Mendoza on 07-09-2023 Mucus Ql (Urine sed) 0 SEEN /hpf [facility] Nitrite Test strip Ql (U)Ord ered By: Sherwin Mendoza on 07-09-2023 Nitrite Ql (U) Negative Negative [facility] Protein Test strip Ql (U)Ord ered By: Sherwin Mendoza on 07-09-2023 Protein Ql (U) Negative Negative [facility] Serum or plasma choriogonado tropin detectionOrdered By: Nicolle Lagos on 07-09-2023 HCG ( test) Ql [address] mIU/mL <4 [facility] Comment on above: hCG levels with Gest ational AgeGestational Age hCG mIU/mL (IU/L)0.2 - 1 week 5 - 501-2 weeks 50 - 5002-3 weeks 100 - 50937-5 weeks 500 - 338555-2 weeks 1000 - 197063-3 weeks 66203 - 100,0006-8 weeks 57934 - 200,0002-3 months 93452 - 100,000 Squamous epithelial cells de tection in urine sediment by light microscopyOrdered By: Sherwin Mendoza on 07-09-2023 Epithelial cells.squamous LM Ql (Urine sed) 0 SEEN /hpf 5-10 [facility] Urine blood detectionOrdered By: Sherwin Mendoza on 07-09-2023 RBC Ql (U) Negative Negative [facility] RBC Ql (U) 0 SEEN /hpf 0-5 [facility] Urine clarityOrdered By: Nan Mendoza on 07-09-2023 Clarity (U) Clear Clear [facility] Urine color determinationOrd ered By: Sherwin Mendoza on 07-09-2023 Color (U) Yellow Yellow [facility] Urine glucose detectionOrder ed By: Sherwin Mendoza on 07-09-2023 Glucose Ql (U) Normal mg/dl Normal [facility] Urine leukocyte esterase det ection by dipstickOrdered By: Sherwin Mendoza on 07-09-2023 Leukocyte esterase Test strip Ql (U) Negative Negative [facility] Urine pHOrdered By: Sherwin jamison on 07-09-2023 pH (U) 7.0 [pH] 5.0 - 8.0 [facility] Urine sediment bacteria coun t by microscopy (number/high power field)Ordered By: Sherwin Mendoza on 07-09-2023 Bacteria LM.HPF (Urine sed) [#/Area] 0 /[HPF] None Seen [facility] Urine specific gravity measu rementOrdered By: Sherwni Mendoza on 07-09-2023 Specific gravity (U) [Rel density] 1.005 1.002-1.030 [facility] Urobilinogen Auto test strip Ql (U)Ordered By: Sherwin Mendoza on 07-09-2023 Urobilinogen Ql (U) Normal mg/dl Normal [facility] Basophil percentageOrdered B y: Chioma Bradley on 03-05-2023 WBC (Bld) [#/Vol] 6.9 10*3/uL 4.4-11.0 [facility] Blood erythrocytes count (nu mber/volume)Ordered By: Choima Bradley on 03-05-2023 RBC (Bld) [#/Vol] 4.24 10*6/uL 4.2-5.4 [facility] Blood hemoglobin measurement (mass/volume)Ordered By: Chioma Bradley on 03-05-2023 Hemoglobin (Bld) [Mass/Vol] 12.9 g/dL 12.0-15.0 [facility] Blood platelet mean volumeOr dered By: Chioma Bradley on 03-05-2023 Platelet mean volume (Bld) [Entitic vol] 9.0 fL 6.2-12.0 [facility] Determination of erythrocyte mean corpuscular volume (MCV)Ordered By: Chioma Bradley on 03-05-2023 MCV (RBC) [Entitic vol] 88.4 fL 81-99 [facility] Hematocrit Auto (Bld) [Volum e fraction]Ordered By: Chioma Bradley on 03-05-2023 Hematocrit (Bld) [Volume fraction] 37.5 % 37-47 [facility] Laboratory - Hematology and Cell countsOrdered By: Chioma Bradlye on 03-05-2023 Erythrocyte distribution width (RBC) [Entitic vol] 38.1 fL 35.1-43.9 [facility] Erythrocyte distribution width (RBC) [Ratio] 11.9 % 11.6-14.6 [facility] MCH (RBC) [Entitic mass] 30.4 pg 27.0-32.0 [facility] MCHC Auto (RBC) [Mass/Vol]Or dered By: Chioma Bradley on 03-05-2023 MCHC (RBC) [Mass/Vol] 34.4 g/dL 32-36 [facility] Platelets bldOrdered By: Misael Bradley on 03-05-2023 Platelets (Bld) [#/Vol] 222 10*3/uL 150-450 [facility] Bacteria identified Cx Nom ( Wound)Ordered By: Refugio Barriga on 01-31-2023 Wound Culture Staphylococcus epidermidis [facility] Gram stain for investigation of transfusion reactionOrdered By: Refugio Barriga on 01-31-2023 Microscopic observation Gram stain Nom (Unsp spec) [facility] Culture, urineOrdered By: Dr Lyubov Bradley on 01-21-2023 Bacteria identified Cx Nom (U) Culture exhibits no growth. [facility] Absolute lymphocyte countOrd ered By: Dr. Bradley on 01-19-2023 Lymphocytes Auto (Unsp spec) [#/Vol] 1.23 10*3/uL 0.83-4.51 [facility] Basophil percentageOrdered B y: Dr. Bradley on 01-19-2023 Basophils/100 WBC (Bld) 0.7 % 0-1 [facility] Eosinophils/100 WBC (Bld) 0.4 % 0-5 [facility] Neutrophils (Bld) [#/Vol] 6.4 10*3/uL 2.0-7.7 [facility] Neutrophils/100 WBC (Bld) 74.5 % 47-70 [facility] WBC (Bld) [#/Vol] 8.5 10*3/uL 4.4-11.0 [facility] Blood erythrocytes count (nu mber/volume)Ordered By: Dr. Bradley on 01-19-2023 RBC (Bld) [#/Vol] 4.46 10*6/uL 4.2-5.4 [facility] Blood hemoglobin measurement (mass/volume)Ordered By: Dr. Bradley on 01-19-2023 Hemoglobin (Bld) [Mass/Vol] 13.4 g/dL 12.0-15.0 [facility] Blood lymphocytes/100 leukoc ytesOrdered By: Dr. Bradley on 01-19-2023 Lymphocytes/100 WBC (Bld) 14.4 % 19-41 [facility] Blood monocytes/100 leukocyt esOrdered By: Dr. Bradley on 01-19-2023 Monocytes/100 WBC (Bld) 9.6 % 0-10 [facility] Blood platelet mean volumeOr dered By: Dr. Bradley on 01-19-2023 Platelet mean volume (Bld) [Entitic vol] 9.2 fL 6.2-12.0 [facility] Culture, urineOrdered By: Barbara Bradley on 01-19-2023 Bacteria identified Cx Nom (U) Culture exhibits no growth. [facility] Determination of erythrocyte mean corpuscular volume (MCV)Ordered By: Dr. Bradley on 01-19-2023 MCV (RBC) [Entitic vol] 91.7 fL 81-99 [facility] HIV 1 and HIV-2 antibody ass ay with HIV-1 p24 antigen detectionOrdered By: Dr. Bradley on 01-19-2023 HIV 1+2 Ab+HIV1 p24 Ag IA Ql Non-Reactive Nonreactive [facility] Hematocrit Auto (Bld) [Volum e fraction]Ordered By: Dr. Bradley on 01-19-2023 Hematocrit (Bld) [Volume fraction] 40.9 % 37-47 [facility] Laboratory - Hematology and Cell countsOrdered By: Dr. Bradley on 01-19-2023 Erythrocyte distribution width (RBC) [Entitic vol] 38.5 fL 35.1-43.9 [facility] Erythrocyte distribution width (RBC) [Ratio] 11.5 % 11.6-14.6 [facility] Immature granulocytes/100 WBC (Bld) 0.400 % 0.0-0.9 [facility] Comment on above: IG% - Immature Granu locytes (promyelocytes, myelocytes and metamyelocytes) > 1% indicates that a LEFT SHIFT is Present. MCH (RBC) [Entitic mass] 30.0 pg 27.0-32.0 [facility] Nucleated RBC/100 WBC (Bld) [Ratio] 0 % 0-5 [facility] MCHC Auto (RBC) [Mass/Vol]Or dered By: Dr. Bradley on 01-19-2023 MCHC (RBC) [Mass/Vol] 32.8 g/dL 32-36 [facility] No Panel InformationOrdered By: Dr. Bradley on 01-19-2023 Hepatitis B Surface Antigen Non-Reactive Nonreactive [facility] Hepatitis C Antibody Non-Reactive Nonreactive [facility] Comment on above: Non Reactive: < 0.8 Equivocal: >/= 0.8 to < 1.0 Reactive: >/= 1.0The CDC recommends that a reactive/equivocal HCV antibody result be followed up by the HCV Nucleic Acid Amplificationtest (532096) Rubella IgG Antibody Reactive Nonreactive [facility] Comment on above: Antibody Results Int erpretation of Immune Status Non Reactive Presumed Non-Immune Equivocal Equivocal Reactive Presumed Immune Platelets bldOrdered By: Dr. Bradley on 01-19-2023 Platelets (Bld) [#/Vol] 304 10*3/uL 150-450 [facility] Serum Treponema species anti body detectionOrdered By: Dr. Bradley on 01-19-2023 Treponema sp Ab Ql (S) Non-Reactive [facility] Serum Varicella zoster virus IgG antibody assay by immunoassay (units/volume)Ordered By: Dr. Bradley on 01-19-2023 VZV IgG IA Qn (S) 800 index Immune >165 [facility] Comment on above: Negative <135 Equivo antonia 135 - 165 Positive >165A positive result generally indicates exposure to thepathogen or administration of specific immunoglobulins,but it is not indication of active infection or stageof disease.Performed at: [facility] [id number] Director: Peewee Rao PhD, Phone: [phone] No Panel InformationOrdered By: Dr. Bradley on 10-30-2022 Follicle Stimulating Hormone 3.0 mIU/mL [facility] Comment on above: NORMAL REFERENCE RAN GES FEMALE FOLLICULAR 2.3 - 12.6 mIU/mL MID-CYCLE PEAK 5.2 - 17.5 mIU/mL LUTEAL 1.7 - 12.9 mIU/mL POST-MENOPAUSAL ON MHT 5.9 - 72.8 mIU/mL NOT ON MHT 12.7 - 132.2 mlU/mL MALE 0.7 - 10.8 mIU/mL Luteinizing Hormone 3.7 mIU/mL [facility] Comment on above: NORMAL REFERENCE RAN GES FEMALE FOLLICULAR 1.9 - 26.2 mIU/mL MID-CYCLE PEAK 22.8 - 76.1 mIU/mL LUTEAL 0.6 - 16.6 mIU/mL POST-MENOPAUSAL ON MHT 1.1 - 52.4 mIU/mL NOT ON MHT 8.6 - 61.8 mIU/mL MALE 1.2 - 10.6 mIU/mL Rubella IgG Antibody Reactive Nonreactive [facility] Comment on above: Antibody Results Int erpretation of Immune Status Non Reactive Presumed Non-Immune Equivocal Equivocal Reactive Presumed Immune Vitamin D 25-Hydroxy 34.9 ng/mL [facility] Comment on above: Vitamin D 25(OH) Sta tus Range Deficiency <20 ng/mL (50nmol/L) Insufficiency 20 - 30 ng/mL (50 - 75 nmol/L) Sufficiency 30 - 100 ng/mL (75 - 250 nmol/L) Toxicity >100 ng/mL (>250 nmol/L) Serum Varicella zoster virus IgG antibody assay by immunoassay (units/volume)Ordered By: Dr. Bradley on 10-30-2022 VZV IgG IA Qn (S) 862 index Immune >165 [facility] Comment on above: Negative <135 Equivo antonia 135 - 165 Positive >165A positive result generally indicates exposure to thepathogen or administration of specific immunoglobulins,but it is not indication of active infection or stageof disease.Performed at: [facility] [facility] [id number] Director: Peewee Rao PhD, Phone: [phone] Serum hepatitis B virus surf sarah antibody IgG detectionOrdered By: Dr. Bradley on 10-30-2022 HBV surface IgG Ql (S) Non-Reactive [facility] Comment on above: Non Reactive: Incons istent with immunity less than <10 mIU/mL Reactive: Consistent with immunity greater than or equal to 10 mIU/mL Serum or plasma estradiol (E 2) measurement (mass/volume)Ordered By: Dr. Bradley on 10-30-2022 E2 [Mass/Vol] 96.8 pg/mL [facility] Comment on above: NORMAL REFERENCE RAN GES [...] 10-30-2022 Progesterone [Mass/Vol] 11.63 ng/mL See Comment [facility] Comment on above: Progesterone Referen ce Table: [...] HbA1c (Bld) [Mass fraction] 5.3 % 3.8-5.6 [facility] Comment on above: Normal < 5.7 % Predi abetic 5.7 - 6.4 % Diabetic >or= 6.5 % Please note range changes. PAP FLUID CERVICAL SCREENING on 08-03-2022 Case Report Gynecologic Cytology Report Case: [id number] Authorizing Provider: Destiney Mccarthy APRN.TRUCK MECHANIC Collected: 08/01/2022 02:49 PM Ordering Location: OB/Gynecology Received: 08/01/2022 05:00 PM First Screen: Yesica Lucas, CT, ASCP Specimen: Pap, Typecasting Machine Operator, Screening, CERVICAL SCREENING FLUID [facility] Clinical History HPV POS [facility] Cytology Interpretation Negative C [facility] FINAL DIAGNOSIS A - CERVICAL SCREENING FLUID Satisfactory for interpretation Negative for Intraepithelial lesion or malignancy. [facility] HPV Requested? Yes, Reflex HPV for ASCUS [facility] LMP 07/25/2022 [facility] Pap Disclaimer The Pap Smear is a screening test for cervical cancer. False negative results occur with all screening tests, emphasizing the need for rescreening at recommended intervals, and clinical correlation. [facility] PAP Typecasting Machine Operator Comment This specimen has been analyzed by the ThinPrep Imaging System, an automated imaging and review system, which assists the laboratory in evaluating cells on ThinPrep Pap tests. Following automated imaging, selected taveras from every slide are reviewed by a scrap sawyer. [facility] Performing Lab Technical component, scrap sawyer screening performed at [facility] [address] [facility] [facility] [address] CLIA# [id number] Diagnostic interpretation performed at [facility], [address] [address] CLIA# [id number] Circulation Worker: Tyree Lozano M.D. [facility] Influenza virus A and B RNA and SARS-CoV-2 (COVID-19) N gene panel SEPIDEH+probe (Resp)on 07-26-2022 FLUAV RNA SEPIDEH+probe Ql (Unsp spec) Negative Negative for Influenza A by RT-PCR [facility] FLUBV RNA SEPIDEH+probe Ql (Unsp spec) Negative Negative for Influenza B by RT-PCR [facility] SARS-CoV-2 (COVID-19) RNA SEPIDEH+probe Ql (Resp) SARS-CoV-2 (Agent of COVID-19) Detected by RT-PCR or equivalent method. Abnormal Not Detected [facility] XR HAND GENERAL 3V PA/LAT/OB L LEFTon 07-25-2022 [facility] XR Hand - left PA and Latera l and Obliqueon 07-25-2022 IMPRESSION: No radiographic evidence of acute osseous injury. Rollway Man: [facility] Transcribe Date/Time: Jul 25 2022 2:09P Dictated by : CHARY HANNAH MD This examination was interpreted and the report reviewed and electronically signed by: CHARY HANNAH MD on Jul 25 2022 2:23PM [facility] DIVISION OF RADIOLOGY * * *Final Report* [...] Joint spaces preserved. DIVISION OF RADIOLOGY Provider, [facility] Dairy - 07/25/2022 * * *Final Report* * [...] No radiographic evidence of acute osseous injury. Rollway Man: [facility] Transcribe Date/Time: Jul 25 2022 2:09P Dictated by : CHARY HANNAH MD This examination was interpreted and the report reviewed and electronically signed by: CHARY HANNAH MD on Jul 25 2022 2:23PM EST [facility] Radiology Study observation (narrative) Pawel gray [facility] XR Hand - left PA and Latera l and ObliqueOrdered By: [facility] Provider on 07-25-2022 [facility] Basophil percentageon 2021 Potassium [Moles/Vol] 3.6 mmol/L 3.5-5.1 [facility] Work Phone: THIN PREP with HPV REFLEX C Uon 01-11-2021 . Comment Normal [facility] Comment on above: Result Comment: The HPV DNA reflex criteria were not met with this specimen result therefore, no HPV testing was performed. . Performed By: #### T PHRA #### Performed for [place] [id number] . Normal [facility] Comment on above: Performed By: #### T PHRA #### Performed for [place] [address] Device Processing Engineer Cyto stain Nom (Cvx/Vag) [ID] Comment Normal [facility] Comment on above: Result Comment: Dickson Espino, Apiculture Teacher (ASCP) Performed By: #### T PHRA #### Performed for [place] [address] Cytology report Cyto stain Doc (Cvx/Vag) Comment Normal [facility] Comment on above: Result Comment: NEGA TIVE FOR INTRAEPITHELIAL LESION OR MALIGNANCY. Performed By: #### T PHRA #### Performed for [place] [address] Cytology report Cyto stain.thin prep Doc (Cvx/Vag) Comment Normal [facility] Comment on above: Result Comment: This liquid based ThinPrep(R) pap test was screened with the use of an image guided system. Performed By: #### T PHRA #### Performed for [place] [address] Note: Comment Normal [facility] Comment on above: Result Comment: [...] By: #### T PHRA #### Performed for [address] [address] Statement of adequacy Cyto stain (Cvx/Vag) [Interp] Comment Normal [facility] Comment on above: Result Comment: Sati sfactory for evaluation. Endocervical and/or squamous metaplastic cells (endocervical component) are present. Performed By: #### T PHRA #### Performed for [address] [address] CHLAMYDIA and GONORRHEA NAAo n 01-09-2021 C. trachomatis rRNA SEPIDEH+probe Ql (Unsp spec) Negative Normal Negative [facility] Comment on above: Performed By: #### G [facility] #### Performed for [address] [address] N. gonorrhoeae rRNA SEPIDEH+probe Ql (Unsp spec) Negative Normal Negative [facility] Comment on above: Performed By: #### G [facility] #### Performed for [address] [address] 2019 NOVEL CORONAVIRUS, NAAo n 02-09-2020 2019 NOVEL CORONAVIRUS, SEPIDEH Not Detected Normal Not Detected [facility] Comment on above: Result Comment: This test was developed and its performance characteristics determined by [employer]. This test has not been FDA cleared [...] detected) result in this assay. Performed at: [facility] [address] [place] [address], [place] [id number] Director Of Special Services: Sammie Santiago MD, Phone: [phone] INFLUENZA A/B ANTIGENSon INFLUENZA A/B ANTIGENS A NEGATIVE FLU RESULT DOES NOT RULE OUT INFLUENZA VIRAL INFECTION. A NEGATIVE FLU RESULT SHOULD BE CONFIRMED BY PCR. INFLUENZA A NEGATIVE INFLUENZA B NEGATIVE Normal [facility] Comment on above: Performed By: #### F LUAB #### [facility] [address] [place] [address] Office Visit: UC: bronchitis on 04-30-2017 Fall risk assessment No Invalid Interpretation Code [facility] Work Phone: Protein mass conc Done Invalid Interpretation Code [facility] Work Phone: Tobacco smoking status NHIS Never smoker Invalid Interpretation Code [facility] Work Phone: Vital Signs Date Time Vital Sign Value Performing Clinician Facility 05-04-2025 09:14-0400 Body height 170.[address] Boston Lopez MD Work Phone: 0(009)773-547749 [place] [address] 05-04-2025 09:14-0400 Body mass index (BMI) [Ratio] 21.3 kg/m2 Dr. Boston Lopez MD Work Phone: 2(937)344-481849 [place] [address] 05-04-2025 09:14-0400 Body weight 61.[address] Boston Lopez MD Work Phone: 2(377)689-066849 [place] [address] 05-04-2025 09:14-0400 Diastolic blood pressure 79 mm[Hg] Dr. Boston Lopez MD Work Phone: 0(613)183-817649 [place] [address] 05-04-2025 09:14-0400 Systolic blood pressure 117 mm[Hg] Dr. Boston Lopez MD Work Phone: 2(477)790-953049 [place] [address] 04-28-2025 14:01-0400 Body height 170.[address] Boston Lopez MD Work Phone: 7(819)418-836349 [place] [address] 04-28-2025 14:01-0400 Body mass index (BMI) [Ratio] 21.7 kg/m2 Dr. Boston Lopez MD Work Phone: [facility] 04-28-2025 14:01-0400 Body weight 62.[address] Boston Lopez MD Work Phone: [facility] 04-28-2025 14:01-0400 Diastolic blood pressure 80 mm[Hg] Dr. Boston Lopez MD Work Phone: [facility] 04-28-2025 14:01-0400 Systolic blood pressure 120 mm[Hg] Dr. Boston Lopez MD Work Phone: [facility] 08-27-2024 12:56-0500 Body height 170.2 cm Boston Lopez MD Work Phone: [facility] 08-27-2024 12:56-0500 Body mass index (BMI) [Ratio] 23.65 kg/m2 Boston Lopez MD Work Phone: [facility] 08-27-2024 12:56-0500 Body weight 68.49 kg Boston Lopez MD Work Phone: [facility] 08-27-2024 12:56-0500 Diastolic blood pressure 67 mm[Hg] Boston Lopez MD Work Phone: [facility] 08-27-2024 12:56-0500 Heart rate 88 /min Boston Lopez MD Work Phone: [facility] 08-27-2024 12:56-0500 Systolic blood pressure 104 mm[Hg] Boston Lopez MD Work Phone: [facility] 06-05-2024 13:23-0500 Body mass index (BMI) [Ratio] 26.1 kg/m2 Jesica Johnson RUG BACKING STENCILER.MID LEVEL JAVA DEVELOPER Work Phone: [facility] 06-05-2024 13:23-0500 Body temperature 100.29 [degF] Jesica Johnson RUG BACKING STENCILER.MID LEVEL JAVA DEVELOPER Work Phone: [facility] 06-05-2024 13:23-0500 Body weight 75.6 kg Jesica Johnson RUG BACKING STENCILER.MID LEVEL JAVA DEVELOPER Work Phone: [facility] 06-05-2024 13:23-0500 Diastolic blood pressure 64 mm[Hg] Jesica Johnson RUG BACKING STENCILER.MID LEVEL JAVA DEVELOPER Work Phone: [facility] 06-05-2024 13:23-0500 Heart rate 109 /min Jesica Johnson RUG BACKING STENCILER.MID LEVEL JAVA DEVELOPER Work Phone: [facility] 06-05-2024 13:23-0500 Respiratory rate 16 /min Jesica Johnson RUG BACKING STENCILER.MID LEVEL JAVA DEVELOPER Work Phone: [facility] 06-05-2024 13:23-0500 SaO2% (BldA) [Mass fraction] 93 % Jesica Johnson RUG BACKING STENCILER.MID LEVEL JAVA DEVELOPER Work Phone: [facility] 06-05-2024 13:23-0500 Systolic blood pressure 101 mm[Hg] Jesica Johnson RUG BACKING STENCILER.MID LEVEL JAVA DEVELOPER Work Phone: [facility] 12-03-2023 09:50-0400 Body height 170.[address] Boston Lopez Work Phone: 3(132)763-339449 [place] [address] 12-03-2023 09:50-0400 Body mass index (BMI) [Ratio] 26.8 kg/m2 Dr. Boston Lopez Work Phone: 9(459)537-544549 [place] [address] 12-03-2023 09:50-0400 Body weight 77.[address] Boston Lopez Work Phone: 3(296)976-181149 [place] [address] 12-03-2023 09:50-0400 Diastolic blood pressure 66 mm[Hg] Dr. Boston Lopez Work Phone: 7(518)192-211749 [place] [address] 12-03-2023 09:50-0400 Systolic blood pressure 110 mm[Hg] Dr. Boston Lopez Work Phone: [facility] 11-05-2023 09:16-0400 Body mass index (BMI) [Ratio] 26.4 kg/m2 Dr. Boston Lopez Work Phone: 4(009)156-037049 [place] [address] 11-05-2023 09:16-0400 Body weight 76.[address] Boston Lopez Work Phone: 2(975)344-574344 [place] [address] 11-05-2023 09:16-0400 Diastolic blood pressure 71 mm[Hg] Dr. Boston Lopez Work Phone: 3(174)758-081844 [place] [address] 11-05-2023 09:16-0400 Systolic blood pressure 113 mm[Hg] Dr. Boston Lopez Work Phone: 7(134)015-099244 [place] [address] 10-11-2023 11:08-0400 Body mass index (BMI) [Ratio] 25.7 kg/m2 Dr. Boston Lopez Work Phone: 6(153)570-461444 [place] [address] 10-11-2023 11:08-0400 Body weight 74.[address] Boston Lopez Work Phone: 1(005)409-715044 [place] [address] 10-11-2023 11:08-0400 Diastolic blood pressure 77 mm[Hg] Dr. Boston Lopez Work Phone: 0(465)784-851444 [place] [address] 10-11-2023 11:08-0400 Systolic blood pressure 109 mm[Hg] Dr. Boston Lopez Work Phone: 6(319)803-252544 [place] [address] 10-04-2023 06:49-0500 Body weight 74.[address] Boston Lopez Work Phone: 9(223)033-698544 [place] [address] 10-04-2023 06:49-0500 Diastolic blood pressure 75 mm[Hg] Dr. Boston Lopez Work Phone: 1(748)658-291244 [place] [address] 10-04-2023 06:49-0500 Systolic blood pressure 115 mm[Hg] Dr. Boston Lopez Work Phone: 5(669)457-334944 [place] [address] 09-27-2023 06:59-0500 Body weight 73.[address] Boston Lopez Work Phone: 2(131)174-092044 [place] [address] 09-27-2023 06:59-0500 Diastolic blood pressure 77 mm[Hg] Dr. Boston Lopez Work Phone: 5(212)415-906844 [place] [address] 09-27-2023 06:59-0500 Systolic blood pressure 138 mm[Hg] Dr. Boston Lopez Work Phone: 1(796)781-380344 [place] [address] 09-21-2023 15:06-0500 Body height 170.[address] Boston Lopez Work Phone: 0(552)899-507344 [place] [address] 09-21-2023 15:06-0500 Body mass index (BMI) [Ratio] 25.7 kg/m2 Dr. Boston Lopez Work Phone: 4(817)246-603344 [place] [address] 09-21-2023 15:06-0500 Body weight 74.[address] Boston Lopez Work Phone: 2(279)937-825144 [place] [address] 09-21-2023 15:06-0500 Diastolic blood pressure 76 mm[Hg] Dr. Boston Lopez Work Phone: 2(818)780-504844 [place] [address] 09-21-2023 15:06-0500 Systolic blood pressure 124 mm[Hg] Dr. Boston Lopez Work Phone: 8(846)828-556044 [place] [address] 09-12-2023 14:46-0500 Body mass index (BMI) [Ratio] 24.9 kg/m2 Dr. Boston Lopez Work Phone: 0(851)629-537244 [place] [address] 09-12-2023 14:46-0500 Body weight 72.[address] Boston Lopez Work Phone: 7(641)704-845544 [place] [address] 09-12-2023 14:46-0500 Diastolic blood pressure 80 mm[Hg] Dr. Boston Lopez Work Phone: 4(705)977-783444 [place] [address] 09-12-2023 14:46-0500 Systolic blood pressure 135 mm[Hg] Dr. Boston Lopez Work Phone: 6(699)539-387044 [address] [place] [address] 08-28-2023 16:02-0500 Body height 170.[address] Boston Lopez Work Phone: 6(464)630-925944 [place] [address] 08-28-2023 16:00-0500 Body mass index (BMI) [Ratio] 24.8 kg/m2 Dr. Boston Lopez Work Phone: 9(120)760-768044 [place] [address] 08-28-2023 16:00-0500 Body weight 71.[address] Boston Lopez Work Phone: 0(179)713-379744 [place] [address] 08-28-2023 16:00-0500 Diastolic blood pressure 76 mm[Hg] Dr. Boston Lopez Work Phone: 8(138)667-557744 [place] [address] 08-28-2023 16:00-0500 Systolic blood pressure 105 mm[Hg] Dr. Boston Lopez Work Phone: 7(593)538-672244 [place] [address] 08-18-2023 22:09-0500 Body height 170.[address] Boston Lopez Work Phone: 8(548)812-903344 [place] [address] 08-18-2023 22:09-0500 Body mass index (BMI) [Ratio] 25 kg/m2 Dr. Boston Lopez Work Phone: 6(882)659-457944 [place] [address] 08-18-2023 22:09-0500 Body temperature 96.8 [degF] Dr. Boston Lopez Work Phone: 3(295)732-465044 [place] [address] 08-18-2023 22:09-0500 Body weight 72.[address] Boston Lopez Work Phone: 2(388)342-735944 [place] [address] 08-18-2023 22:09-0500 Diastolic blood pressure 83 mm[Hg] Dr. Boston Lopez Work Phone: 3(863)982-730944 [place] [address] 08-18-2023 22:09-0500 Heart rate 115 /min Dr. Boston Lopez Work Phone: 5(640)271-768944 [place] [address] 08-18-2023 22:09-0500 Respiratory rate 18 /min Dr. Boston Lopez Work Phone: 2(436)016-707844 [place] [address] 08-18-2023 22:09-0500 SaO2% (BldA) [Mass fraction] 99 % Dr. Boston Lopez Work Phone: 1(435)478-799044 [place] [address] 08-18-2023 22:09-0500 Systolic blood pressure 120 mm[Hg] Dr. Boston Lopez Work Phone: 0(890)223-856044 [place] [address] 08-02-2023 14:38-0500 Body height 170.[address] Boston Lopez Work Phone: 2(886)203-527344 [place] [address] 08-02-2023 14:37-0500 Body mass index (BMI) [Ratio] 24.8 kg/m2 Dr. Boston Lopez Work Phone: 8(326)948-449644 [place] [address] 08-02-2023 14:37-0500 Body weight 71.[address] Boston Lopez Work Phone: [facility] 08-02-2023 14:37-0500 Diastolic blood pressure 80 mm[Hg] Dr. Boston Lopez Work Phone: [facility] 08-02-2023 14:37-0500 Systolic blood pressure 126 mm[Hg] Dr. Boston Lopez Work Phone: [facility] 07-09-2023 15:49-0500 Diastolic blood pressure 73 mm[Hg] [facility] 07-09-2023 15:49-0500 Heart rate 64 /min [facility] 07-09-2023 15:49-0500 Respiratory rate 16 /min [facility] 07-09-2023 15:49-0500 SaO2% (BldA) [Mass fraction] 99 % [facility] 07-09-2023 15:49-0500 Systolic blood pressure 134 mm[Hg] [facility] 07-09-2023 13:46-0500 Body height 170.18 cm [facility] 07-09-2023 13:46-0500 Body mass index (BMI) [Ratio] 24.3 kg/m2 [facility] 07-09-2023 13:46-0500 Body temperature 96.6 [degF] [facility] 07-09-2023 13:46-0500 Body weight 70.3 kg [facility] 03-05-2023 14:42-0400 Body temperature 97.2 [degF] [facility] 03-05-2023 14:42-0400 Diastolic blood pressure 79 mm[Hg] [facility] 03-05-2023 14:42-0400 Heart rate 76 /min [facility] 03-05-2023 14:42-0400 Respiratory rate 18 /min [facility] 03-05-2023 14:42-0400 SaO2% (BldA) [Mass fraction] 100 % [facility] 03-05-2023 14:42-0400 Systolic blood pressure 112 mm[Hg] [facility] 03-05-2023 11:08-0400 Body height 170.18 cm [facility] 03-05-2023 11:08-0400 Body mass index (BMI) [Ratio] 23.6 kg/m2 [facility] 03-05-2023 11:08-0400 Body weight 68.22 kg [facility] 02-01-2023 18:39-0400 Body temperature 98.29 [degF] Boston Lopez MD Work Phone: [facility] 02-01-2023 18:39-0400 Body weight 67.59 kg Boston Lopez MD Work Phone: [facility] 02-01-2023 18:39-0400 Diastolic blood pressure 70 mm[Hg] Boston Lopez MD Work Phone: [facility] 02-01-2023 18:39-0400 Heart rate 91 /min Boston Lopez MD Work Phone: [facility] 02-01-2023 18:39-0400 SaO2% (BldA) [Mass fraction] 98 % Boston Lopez MD Work Phone: [facility] 02-01-2023 18:39-0400 Systolic blood pressure 104 mm[Hg] Boston Lopez MD Work Phone: [facility] 08-01-2022 13:27-0500 Body height 170.2 cm Destiney Mccarthy APRN.TRUCK MECHANIC Work Phone: [facility] 08-01-2022 13:27-0500 Body weight 66.68 kg Destiney Mccarthy APRN.TRUCK MECHANIC Work Phone: [facility] 08-01-2022 13:27-0500 Diastolic blood pressure 62 mm[Hg] Destiney Mccarthy APRN.TRUCK MECHANIC Work Phone: [facility] 08-01-2022 13:27-0500 Systolic blood pressure 100 mm[Hg] Destiney Mccarthy APRN.TRUCK MECHANIC Work Phone: [facility] 07-25-2022 13:02-0500 Body height 172 cm Boston Lopez MD Work Phone: [facility] 07-25-2022 13:02-0500 Body weight 66.22 kg Boston Lopez MD Work Phone: [facility] 07-25-2022 13:02-0500 Diastolic blood pressure 70 mm[Hg] Boston Lopez MD Work Phone: [facility] 07-25-2022 13:02-0500 Heart rate 99 /min Boston Lopez MD Work Phone: [facility] 07-25-2022 13:02-0500 Respiratory rate 16 /min Boston Lopez MD Work Phone: [facility] 07-25-2022 13:02-0500 SaO2% (BldA) [Mass fraction] 99 % Boston Lopez MD Work Phone: [facility] 07-25-2022 13:02-0500 Systolic blood pressure 110 mm[Hg] Boston Lopez MD Work Phone: [facility] 04-30-2017 16:33-0400 BMI (Body Mass Index) 23.63 kg/m2 Luisa Grover LPN [facility] Work Phone: 04-30-2017 16:33-0400 Body Temperature 98.8 [degF] Luisa Grover LPN [facility] Work Phone: 04-30-2017 16:33-0400 BP Diastolic 74 mm[Hg] Luisa Grover LPN [facility] Work Phone: 04-30-2017 16:33-0400 BP Systolic 104 mm[Hg] Luisa Grover LPN [facility] Work Phone: 04-30-2017 16:33-0400 Height 172.72 cm Luisa Grover LPN [facility] Work Phone: 04-30-2017 16:33-0400 Pulse (Heart Rate) 83 /min Luisa Grover LPN [facility] Work Phone: 04-30-2017 16:33-0400 Respiratory Rate 14 /min Luisa Wheelerall FILLER SIFTER MACHINE [facility] Work Phone: 04-30-2017 16:33-0400 Weight 70.49 kg Luisa Reilly GROSSMAN [facility] Work Phone: Encounters Encounter Date Encounter Type Care Provider Facility Start: 06-08-2025 ambulatory [facility] Start: 06-05-2025 ambulatory [facility] Facility:[facility] Start: 06-05-2025 Emergency department patient visit [facility] Facility:[facility] Start: 06-04-2025 End: 06-04-2025 ambulatory [facility] Facility:[facility] Start: 05-27-2025 ambulatory [facility] Facility:[facility] Start: 05-26-2025 End: 05-26-2025 [facility] Start: 05-04-2025 End: 05-04-2025 Patient encounter procedure Roger CASANOVA -[facility] Work Phone: Start: 05-04-2025 End: 05-04-[address] Boston Lopez MD Work Phone: -[facility] Start: 05-01-2025 [facility] Start: 04-28-2025 End: 04-28-[address] Nicolle Massey DO -[facility] Work Phone: Start: 04-28-2025 End: 04-28-[address] Boston Lopez MD Work Phone: -[facility] Start: 04-28-2025 End: 04-28-2025 ambulatory LULI A SUPPAN Facility:[facility] Start: 04-28-2025 End: 04-28-2025 ambulatory [facility] Facility:[facility] Start: 04-16-2025 End: 04-16-2025 ambulatory LULI A SUPPAN Facility:[facility] Start: 04-13-2025 End: 04-13-[address] Boston Lopez MD Work Phone: -Ultrasound [facility] Start: 04-13-2025 End: 04-13-[address] Kari Vanegas MD -Ultrasound [facility] Work Phone: Start: 04-13-2025 End: 04-13-2025 ambulatory Kari Vanegas Facility:[facility] Start: 04-01-2025 End: 04-01-[address] Boston Lopez MD Work Phone: -Ultrasound [facility] Start: 04-01-2025 End: 04-01-[address] Kari Vanegas MD -Ultrasound [facility] Work Phone: Start: 04-01-2025 End: 04-01-2025 ambulatory [facility] Facility:[facility] Start: 03-22-2025 End: 03-22-[address] Boston Lopez MD Work Phone: -Laboratory Start: 03-22-2025 End: 03-22-[address] Kari Vanegas MD -Laboratory Work Phone: Start: 03-22-2025 End: 03-22-2025 ambulatory [facility] Facility:[facility] Start: 03-20-2025 End: 03-20-[address] Boston Lopez MD Work Phone: -Laboratory Start: 03-20-2025 End: 03-20-[address] Kari Vanegas MD -Laboratory Work Phone: Start: 03-20-2025 End: 03-20-2025 ambulatory [facility] Facility:[facility] Start: 09-15-2024 End: 09-15-2024 Follow-up encounter Boston Lopez MD Work Phone: [facility] [place] Start: 09-15-2024 End: 09-15-2024 ambulatory [facility] Facility:[facility] Start: 08-27-2024 Encounter for genera l adult medical examination without abnormal findings [facility] Start: 08-27-2024 End: 08-27-2024 Subsequent hospital visit by physician Yarely [facility] Work Phone: Radiology Comment on above: Well adult exam [Z00 .00] Start: 08-27-2024 End: 08-27-2024 ambulatory BOSTON LOPEZ Facility:[facility] Start: 08-27-2024 End: 08-27-2024 Patient encounter procedure Boston Lopez MD Work Phone: [facility] Comment on above: Well adult exam (Jeny angel luis Dx); Chest pain, unspecified type; Encounter for screening examination for other mental health and behavioral disorders; Screening for depression Start: 08-27-2024 End: 08-27-2024 Patient encounter status Boston Lopez MD Work Phone: [facility] Start: 08-27-2024 End: 08-27-2024 ambulatory BOSTON LOPEZ Facility:[facility] Start: 06-05-2024 End: 06-05-2024 Office outpatient visit 15 minutes Jesica Johnson RUG BACKING STENCILER.MID LEVEL JAVA DEVELOPER Work Phone: Internal Medicine [facility] Comment on above: Sinobronchitis (Prim danish Dx); Acute cough; Fever, unspecified fever cause Start: 06-05-2024 End: 06-05-2024 ambulatory [facility] Facility:[facility] Start: 06-03-2024 End: 06-03-2024 ambulatory Boston Lopez MD Work Phone: [facility] Comment on above: Chest Pain Start: 02-23-2024 End: 02-23-2024 Emergency department patient visit TEMP ID ER_REG [facility] Start: 01-24-2024 End: 01-24-2024 ambulatory BOSTON LOPEZ [facility] Start: 12-25-2023 End: 12-25-2023 ambulatory TRUNG CANELA [facility] Start: 12-03-2023 End: 12-03-[address] Boston Lopez Work Phone: [facility] Work Phone: Start: 12-03-2023 End: 12-03-[address] Boston Lopez Work Phone: [facility] Work Phone: Start: 11-29-2023 End: 11-29-2023 ambulatory BOSTON Rogers JOHN [facility] Start: 11-05-2023 End: 11-05-[address] Boston Lopez Work Phone: [facility] Work Phone: Start: 11-01-2023 End: 11-01-2023 ambulatory TRUNG CANELA [facility] Start: 10-11-2023 End: 10-11-2023 ambulatory HINA NEWMAN [facility] Start: 10-11-2023 End: 10-11-[address] Boston Lopez Work Phone: [facility] Work Phone: Start: 10-04-2023 End: 10-04-[address] Boston Lopez Work Phone: [facility] @ Start: 09-27-2023 End: 09-27-[address] Boston Lopez Work Phone: [facility] @ Start: 09-21-2023 End: 09-21-[address] Boston Lopez Work Phone: [facility] Work Phone: Start: 09-21-2023 End: 09-21-[address] Boston Lopez Work Phone: [facility]-Laboratory, Specimen Work Phone: Start: 09-21-2023 End: 09-21-[address] Boston Lopez Work Phone: [facility] Work Phone: Start: 09-12-2023 End: 09-12-[address] Boston Lopez Work Phone: [facility] Work Phone: Start: 08-28-2023 End: 08-28-[address] Boston Lopez Work Phone: [facility] Work Phone: Start: 08-28-2023 End: 08-28-[address] Boston Lopez Work Phone: [facility] Work Phone: Start: 08-18-2023 End: 08-19-2023 Emergency department patient visit Dr. Boston Lopez Work Phone: [facility]-Emergency Department Work Phone: Start: 08-02-2023 End: 08-02-[address] Boston Lopez Work Phone: [facility] Work Phone: Start: 08-02-2023 End: 08-02-[address] Boston Lopez Work Phone: [facility]-Laboratory, [facility] Start: 08-02-2023 End: 08-02-[address] Boston Lopez Work Phone: [facility] Work Phone: Start: 07-17-2023 End: 07-17-2023 ambulatory [facility] Work Phone: Start: 07-17-2023 End: 07-17-2023 Patient encounter procedure [facility]-Ultrasound, [facility] Work Phone: Start: 07-11-2023 End: 07-11-2023 ambulatory [facility] Work Phone: Start: 07-11-2023 End: 07-11-2023 Patient encounter procedure [facility]-Laboratory Work Phone: Start: 07-09-2023 End: 07-09-2023 Emergency department patient visit [facility]-Emergency Department Work Phone: Start: 07-09-2023 End: 07-09-2023 Patient encounter procedure [facility]Laboratory Work Phone: Start: 03-29-2023 End: 03-29-2023 ambulatory Boston Lopez MD Work Phone: [facility] Comment on above: Brittle nails (Prima ry Dx); Hair loss; Family history of thyroid disease Start: 03-29-2023 End: 03-29-2023 Telemedicine consultation with patient Boston Lopez MD Work Phone: [facility] Start: 03-05-2023 End: 03-05-2023 Admission to same day surgery center [facility] Day [facility] Start: 03-05-2023 End: 03-05-2023 ambulatory [facility] Work Phone: Start: 02-01-2023 End: 02-01-2023 Patient encounter procedure Boston Lopez MD Work Phone: [facility] Comment on above: Erythema migrans (Pr imary Dx) Start: 01-31-2023 End: 01-31-2023 ambulatory [facility] Work Phone: Start: 01-31-2023 End: 01-31-2023 Patient encounter procedure [facility]-Laboratory, Specimen Work Phone: Start: 01-19-2023 End: 01-19-2023 ambulatory [facility] Work Phone: Start: 01-19-2023 End: 01-19-2023 Patient encounter procedure [facility], [place] header set up operator Off Start: 10-30-2022 End: 10-30-2022 ambulatory [facility] Work Phone: Start: 10-30-2022 End: 10-30-2022 Patient encounter procedure [facility], [place] header set up operator Off Start: 08-01-2022 End: 08-01-2022 Patient encounter procedure Destiney Mccarthy APRN.TRUCK MECHANIC Work Phone: OB/Gynecology Comment on above: Encounter for gyneco logical examination (general) (routine) without abnormal findings (Primary Dx); Screening for cervical cancer; Screen for STD (sexually transmitted disease) Start: 08-01-2022 End: 08-01-2022 Patient encounter status Destiney Mccarthy APRN.TRUCK MECHANIC Work Phone: OB/Gynecology Start: 07-26-2022 Telephone encounter Boston Lopez MD Work Phone: [facility] Comment on above: Results Start: 07-25-2022 End: 07-25-2022 Subsequent hospital visit by physician [facility] Anam Work Phone: Radiology Comment on above: Pain of finger of le ft hand [M79.645] Start: 07-25-2022 End: 07-25-2022 Patient encounter procedure Boston Lopez MD Work Phone: [facility] Comment on above: Well adult exam (Jeny angel luis Dx); Pain of finger of left hand; Screening for cervical cancer; Acute cough; Screening for lipid disorders; Screening for diabetes mellitus (DM) Start: 07-25-2022 End: 07-25-2022 Patient encounter status Boston Lopez MD Work Phone: [facility] Start: 11-29-2021 End: 11-29-2021 Patient encounter procedure [facility] Start: 01-11-2021 Encounter for gynecological examination (general) (routine) without abnormal findings ROXANN Camarillo BERTRAND DO [facility] Start: 01-06-2021 End: 01-06-2021 ambulatory ROXANN Camarillo BERTRAND DO Facility:[facility] Start: 10-17-2017 End: 10-17-2017 Ambulatory Ann Juan Facility:[facility] Procedures Date Procedure Procedure Detail Performing [...] HCV Quant by PCR testing - HCVPCR #[id number] Non Reactive: < 0.8 Equivocal: >/= 0.8 [...] prepj scr mnl rescr phys Destiney Mccarthy RUG BACKING STENCILER.TRUCK MECHANIC Work Phone: Start: 07-25-2022 Radex hand minimum 3 views Boston Lopez MD Work Phone: Start: 07-25-2022 COVID WITH FLUA+B, ROUTINE Boston Lopez MD Work Phone: H/O: section Status pos t section Dr. Boston Lopez MD Work Phone: Comment on above: 02/19/24: PCS KenV Yu Urbano H/O: section Hx of cesa rean section Dr. Boston Lopez MD Work Phone: H/O: section Hx of cesa rean section Dr. Nicolle Massey DO H/O: section Hx of cesa rean section Roger Marshall CN Urine culture Plan of Treatment Date Care Activity Detail Author Start: 12-26-2033 Urine microalbumin profile DTa P,Tdap,Td Vaccine (2 - Td or Tdap) [facility] Start: 08-27-2025 Anxiety Screening Anxiety Screening [facility] Start: 08-27-2025 Covid-19 Vaccine () Covid-19 Vaccine () [facility] Comment on above: Postponed from 03/30 (Declined at this time) Start: 08-27-2025 [facility] Start: 08-01-2025 PAP TESTING PAP TESTING [facility] Start: 08-01-2025 Screening for malign ant neoplasm of cervix Cervical Cancer Screening [facility] Start: 04-28-2025 Bacteria identified in Urine by Culture Urine Culture [facility] Start: 04-28-2025 Chlamydia deoxyribon ucleic acid detection [facility] Start: 04-28-2025 [facility] Start: 01-26-2025 Influenza vaccination Influenza Vacc ine (#1) [facility] Comment on above: Postponed from 03/30 (Declined at this time) Start: 09-15-2024 End: 09-15-2024 Patient encounter procedure 09/15/2024 8:00 AM EST Office Visit Cardiology [address] [place] [address] Chest pain, unspecified type [R07.9] Cardiology Comment on above: Chest pain, unspecif ied type [R07.9] Start: 03-30-2024 Covid-19 Vaccine ( season) Covid-19 Vaccine ( season) [facility] Start: 03-30-2024 Covid-19 Vaccine ( season) Covid-19 Vaccine ( season) [facility] Start: 03-30-2024 Covid-19 Vaccine ( season) Covid-19 Vaccine ( season) [facility] Start: 03-30-2024 Influenza vaccination Influenza Vacc ine (#1) [facility] Start: 08-19-2023 [facility] Start: 08-02-2023 Liquid based cervica l cytology screening [facility] Start: 03-30-2023 Influenza vaccination INFLUENZA (#1) [facility] Start: 03-29-2023 End: 05-29-2023 CBC W Auto Differential panel - Blood CBC + DIFF Lab Routine Brittle nails Hair loss Family history of thyroid disease Expected: 03/29/2023, Expires: 05/29/2023 [facility] Work Phone: Comment on above: Expected: 03/29/2023 , Expires: 05/29/2023 Start: 03-29-2023 End: 05-29-2023 Comprehensive metabolic 2000 panel - Serum or Plasma COMP METABOLIC PANEL Lab Routine Brittle nails Hair loss Family history of thyroid disease Expected: 03/29/2023, Expires: 05/29/2023 [facility] Work Phone: Comment on above: Expected: 03/29/2023 , Expires: 05/29/2023 Start: 03-29-2023 End: 05-29-2023 T4/FTI/T4U T4/FTI/T4U Lab Routine Brittle nails Hair loss Family history of thyroid disease Expected: 03/29/2023, Expires: 05/29/2023 [facility] Work Phone: Comment on above: Expected: 03/29/2023 , Expires: 05/29/2023 Start: 03-29-2023 End: 05-29-2023 Thyrotropin [Units/volume] in Serum or Plasma TSH BLD Lab Routine Brittle nails Hair loss Family history of thyroid disease Expected: 03/29/2023, Expires: 05/29/2023 [facility] Work Phone: Comment on above: Expected: 03/29/2023 , Expires: 05/29/2023 Start: 03-29-2023 End: 05-29-2023 Triiodothyronine (T3) [Mass/volume] in Serum or Plasma T3 BLD Lab Routine Brittle nails Hair loss Family history of thyroid disease Expected: 03/29/2023, Expires: 05/29/2023 [facility] Work Phone: Comment on above: Expected: 03/29/2023 , Expires: 05/29/2023 Start: 03-05-2023 Patient discharge [facility] Start: 03-05-2023 Ambulation without limitation [facility] Start: 03-05-2023 Medication education [facility] Start: 03-05-2023 Planned voiding [facility] Start: 03-05-2023 Taking patient vital signs [facility] Start: 03-05-2023 Vital signs measurements [facility] Start: 03-05-2023 End: 03-05-2023 [facility] Start: 02-01-2023 End: 04-03-2023 Borrelia burgdorferi IgG and IgM panel - Serum LYME AB EARLY <=30 DAY SYMPTOMS Lab Routine Erythema migrans Expected: 02/01/2023, Expires: 04/03/2023 [facility] Work Phone: Comment on above: Expected: 02/01/2023 , Expires: 04/03/2023 Start: 02-01-2023 End: 04-03-2023 CBC W Auto Differential panel - Blood CBC + DIFF Lab Routine Erythema migrans Expected: 02/01/2023, Expires: 04/03/2023 [facility] Work Phone: Comment on above: Expected: 02/01/2023 , Expires: 04/03/2023 Start: 02-01-2023 End: 04-03-2023 Erythrocyte sedimentation rate SED RATE WESTERGREN Lab Routine Erythema migrans Expected: 02/01/2023, Expires: 04/03/2023 [facility] Work Phone: Comment on above: Expected: 02/01/2023 , Expires: 04/03/2023 Start: 01-26-2023 Influenza vaccination INFLUENZA (#1) [facility] Comment on above: Postponed from 03/30 (Declined at this time) Start: 01-23-2023 End: 03-25-2023 Lipid 1996 panel - Serum or Plasma LIPID PANEL BASIC Lab Routine Screening for lipid disorders Expected: 01/23/2023, Expires: 03/25/2023 [facility] Work Phone: Comment on above: Expected: 01/23/2023 , Expires: 03/25/2023 Start: 07-30-2022 [facility] Start: 07-25-2022 End: 09-24-2022 Fasting glucose [Mass/volume] in Serum or Plasma GLUCOSE FASTING BLD Lab Routine Screening for diabetes mellitus (DM) Expected: 07/25/2022, Expires: 09/24/2022 [facility] Work Phone: Comment on above: Expected: 07/25/2022 , Expires: 09/24/2022 Start: 04-30-2017 End: 04-30-2017 Appointment Appointment [facility] Work Phone: Start: 2016 PAP TESTING [facility]ING [facility] [facility]: [facility] Urine microalbumin profile [facility] Start: 2013 Anxiety Screening Anxiety Screening [facility] Start: 2013 Depression Screening Depression Scre ening [facility] Start: 1995 COVID-19 VACCINE (#1) COVID-19 VACCI NE (#1) [facility] ECG COMPLETE ECG COMPLETE ECG Routine Chest pain, unspecified type 08/27/2024 1:15 PM EST [facility] End: 08-27-2025 Echocardiography ECHO Cardiology Routine Chest pain, unspecified type 1 Occurrences starting 08/27/2024 until 08/27/2025 [facility] Work Phone: Comment on above: 1 Occurrences starti ng 08/27/2024 until 08/27/2025 Neisseria gonorrhoea e rRNA [Presence] in Unspecified specimen by SEPIDEH with probe detection [facility] Patient Education [facility] Work Phone: Patient referral [facility] Work Phone: PCR test for Chlamyd ia trachomatis [facility] Source specific culture [facility] Urine culture [facility] End: 07-05-2025 XR Chest PA and Lateral XR CHEST 2V FRONTAL/LAT Radiology STAT Acute cough Fever, unspecified fever cause Sinobronchitis 1 Occurrences starting 06/05/2024 until 07/05/2025 [facility] Work Phone: Comment on above: 1 Occurrences starti ng 06/05/2024 until 07/05/2025 [facility] Immunizations Immunization Date Immunization Notes Care Provider Vanessa marin 12-27-2023 tetanus toxoid, redu rox diphtheria toxoid, and acellular pertussis vaccine, adsorbed Dr. Boston Lopez MD Work Phone: [facility] Payers Date Payer Category Payer Self-pay [id number] 2022 Private Health Insurance MMO SU[employer] PPO [id number] 2022 Unknown [id number] 2017 Unknown 2004 Unknown [id number] 1995 Unknown [id number] 2.16840.1.387764.3.579.2. 419 1995 Unknown [id number] 2.16840.1.544304.3.579.2. 479 1995 Unknown [id number] 2.16840.1.399031.3.579.2. 479 1995 Unknown [id number] 2.16840.1.874508.3.579.2. 479 1995 Unknown [id number] 2.16840.1.099188.3.579.2. 479 1995 Unknown [id number] 2.16840.1.107547.3.579.2. 479 Private Health Insurance [facility] [id number] [place] [address] [id number] Unknown [id number] Unknown [id number] Unknown [id number] 2.16.840.1.076220.3.579.2. 462 Unknown [id number] 2.16.840.1.100154.3.579.2. 462 Unknown [id number] 2.16.840.1.424395.3.579.2. 462 Unknown [id number] 2.16.840.1.599457.3.579.2. 462 Unknown [id number] 2.16.840.1.200959.3.579.2. 462 Unknown [id number] 2.16.840.1.312028.3.579.2. 462 Unknown [id number] 2.16.840.1.190509.3.579.2. 462 Unknown [id number] 2.16.840.1.841754.3.579.2. 462 Unknown [id number] 2.16.840.1.595520.3.579.2. 462 Unknown [id number] 2.16.840.1.092110.3.579.2. 462 Unknown [id number] 2.16.840.1.332203.3.579.2. 462 Unknown [id number] 2.16.840.1.994838.3.579.2. 462 Unknown [id number] 2.16.840.1.004132.3.579.2. 462 Unknown [id number] 2.16.840.1.022813.3.579.2. 462 Social History Date Type Detail Facility Start: 12-09-2017 End: 07-09-2023 Tobacco smoking status MSIS Unknown if ever smoked [facility] Start: 1995 Sex Assigned At Female W [facility] Start: 07-25-2022 End: 04-16-2025 Tobacco smoking status MSIS Never smoked tobacco [facility] Start: 07-25-2022 Tobacco use and exposure Smoke less tobacco non-user [facility] Start: 07-18-2022 History SDOH Alcohol Frequency 2 [facility] Start: 07-18-2022 History SDOH Social Connections Phone 5 [facility] Start: 07-18-2022 History SDOH Social Connections [employer] 3 [facility] Start: 07-18-2022 History SDOH Social Connections Membership 1 [facility] Start: 1995 Sex Assigned At Not on file C [facility] Start: 08-01-2022 End: 08-27-2024 Alcohol intake Current drinker of alcohol (finding) [facility] Start: 08-01-2022 Alcohol Comment occasional [place] [facility] Start: 07-18-2022 End: 02-01-2023 History of Social function [facility] Start: 07-18-2022 End: 02-01-2023 Social connection and isolation panel [facility] Do you belong to any clubs or organizations such as quaker groups, unions, fraternal or athletic groups, or school groups? Yes [facility] Are you now , , , , never or living with a partner? [facility] How often to you hav e a drink containing alcohol? Monthly or less [facility] How many standard dr inks containing alcohol do you have on a typical day? 3 or 4 [facility] How often do you hav e 6 or more drinks on 1 occasion? Less than monthly [facility] How hard is it for y ou to pay for the very basics like food, housing, medical care, and heating Not hard at all [facility] Do you feel stress - tense, restless, nervous, or anxious, or unable to sleep at night because your mind is troubled all the time - these days [OSQ] Not at all [facility] (I/We) worried sami er (my/our) food would run out before (I/we) got money to buy more. Never true [facility] In the past 12 month s, was there a time when you were not able to pay the mortgage or rent on time? No [facility] Tobacco smoking status No Smokin g Status Entered [facility] How many standard dr inks containing alcohol do you have on a typical day? 1 or 2 [facility] How often do you hav e 6 or more drinks on 1 occasion? Never [facility] Do you feel stress - tense, restless, nervous, or anxious, or unable to sleep at night because your mind is troubled all the time - these days [OSQ] To some extent [facility] Start: 08-07-2024 Gender identity Identifies as female gender (finding) [facility] Goals Date Patient Goal Desired Activity /State Mental Status Date Assessment Result Facility 03-05-2023 Cognitive function Voice/Name;Touch/Guevara arellano [facility] Work Phone: Clinical Notes 07-25-2022 to 05-04-2025 Note Date & Type Note Facility 05-04-2025 Progress note [facility] 05-01-2025 Note HNO ID: [id number] Author: CAPRI HERNANDEZ RDMS Service: ? Author Type: Bilingual Sales Assistant Type: Progress Notes Filed: 05/01/2025 13:18 Note [...] PATIENT PRESENTS WITH AN IMPLANTABLE OR ATTACHED SEISMIC COMPUTER: No RADIOLOGY DEPARTMENT: Ultrasound PERIPHERAL IV DATA: Not applicable SIGNED BY: Capri Hernandez RDMS May 01, 2025 1:18 PM [facility] 04-28-2025 Evaluation note Diagnosis Onset Date Resolution [...] 9:08am Family history of ITP acute Oct brandin 2024 9:08am History of human papilloma virus acute May 04 9:08am History of miscarriage, currently acute May 04, 2025 9:08am Hx of section acute Oc 2024 9:08am Hx of depression, currently acute May 04 9:08am acute May 04 025 9:08am Supervision of high-risk acute May 04, 2025 9:08am [facility] Work Phone: 1(659) 616-788709-30-2025 Progress [facility] [address] [place] [address], [address] [place] [address] OFFICE VISIT Date of Service: 04/28/25 MR#: [id number] Acct: [id number] Name: KIM LOTT Rep # : [id number] : 1995 Provider: Dr. 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 Date Name GA/Weeks Outcome Route Bth Weight Infant Gen Labor Lgth Anesthesia Del Locatn Provider FOB 03/05/23 miscarriage 13 spontaneous 02/19/24 [facility] 37 live - full term 7lbs Male sp inal WC J[facility] Delivery Date: 03/05/23 Last Updated [...] Pulmonary (e.g.,TB,Asthma), Seasonal allergies, Drug/latex allergies/reactions, Breast, Game Designer/Creative Director surgery, Operations/hospitalizations, Anesthetic complications, History of abnormal [...] preference, Signs and Symptoms of Preeclampsia, Feeding, Education and Family Medical Leave or [...] comfortable and no acute distress Orientation: alert HENIA Head: normal to inspection, normocephalic and atraumatic [...] in the past year?: No 04/28/25 1443 ricco Yolis DO> Date _ Nicolle Massey DO Cosigner Signature: Date (if applicable) CC: ~ [facility]09-30-2025 Progress note Author Nicolle Lagos [facility] Note Date/Time April 28, 2025 2:43pm [facility] [address], [address] [place] [address] OFFICE VISIT Date of Service: 04/28/25 MR#: [id number] Acct: [id number] Name: KIM LOTT Rep # : [id number] : 1995 Provider: Dr. 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..] comfortable and no acute distress Orientation: alert HENIA Head: normal to inspection, normocephalic and atraumatic [...] Cosigner Signature: Date (if applicable) CC: ~ [facility] [employer] Work Phone: 1(295) 739-692109-30-2025 NoteHNO ID: [id number] Author: LULI PLUMMER APRN.TRUCK MECHANIC Service: ? Author Type: Nurse Practitioner Type: [...] as needed for worsening/no improvement. Luli Plummer APRN.TRUCK MECHANIC [1] Social History Tobacco Use Smoking status: Never Smokeless tobacco: Never Vaping Use Vaping status: Never Used Substance Use Topics Alcohol use: Yes Comment: occasional [facility]: [facility] NoteHNO ID: [id number] Author: LULI PLUMMER APRN.TRUCK MECHANIC Service: ? Author Type: Nurse Practitioner Type: [...] as needed for worsening/no improvement. Luli Plummer, RUG BACKING STENCILER.TRUCK MECHANIC [1] Social History Tobacco Use Smoking status: Never Smokeless tobacco: Never Vaping Use Vaping status: Never Used Substance Use Topics Alcohol use: Yes Comment: occasional Drug use: [facility] Radiology Diagnostic study note [facility] [address] [place], [place] [id number] Transvaginal w/Preg US MR#: [id number] Acct: [id number] Name: KIM LOTT Rep #: : 1995 F 29 From: José Domínguez MD PCP: Dr. Boston Lopez MD Status: ROMA Yessica LUPE Study:Transvaginal w/Preg US Date of Exam: 04/13/25 Exam# [id number] Ordering Dr: Kari Mcallister MD PROCEDURE: TRANSVAGINAL [...] and unremarkable. DIMENSIONS: Parameter Measurement / EGA Wenden Rump Length: 9 mm/7 weeks and 0 days Gestational Sac: 1.5 cm/6 weeks and 2 days Yolk Sac: 4 mm/ ESTIMATED GESTATIONAL AGE: By Ultrasound: 6 weeks and 5 days ESTIMATED DATE OF DELIVERY: By Ultrasound: December 02, 2025 US/Transvaginal w/Preg US IMPRESSION: Single live intrauterine gestation with mean gestational age of 6 weeks and 5 days. Reading Location: [facility] CC: Dr. Kari Vanegas MD; Dr. Boston Lopez MD ~ [place] Man: Signed [facility]09-05-2025 Radiology Diagnostic study note [facility] [address] [place] [address] [place] [address] Transvaginal w/Preg US MR#: [id number] Acct: [id number] Name: KMI LOTT Rep #: : 1995 F 29 From: José Domínguez MD PCP: Dr. Boston Lopez MD Status: ROMA BAUM Study:Transvaginal w/Preg US Date of Exam: 04/01/25 Exam# [id number] Ordering Dr: Kari Mcallister MD PROCEDURE: TRANSVAGINAL [...] well as repeat sonogram recommended. Reading Location: [place] [address] CC: Dr. Kari Vanegas MD; Dr. Boston Lopez MD ~ [place] Man: Signed [facility]02-17-2025 Telephone encounter Note* Telephone Encounter - Margaux Giron LPN - 09/15/2024 4:10 PM EST PATIENT NOTIFIED OF SAME. [facility]02-17-2025 Miscellaneous Notes* Telephone Encounter - Margaux Giron [...] her echo is ok. documented in [facility] encounterMer[facility]02-[facility]-2025 Telephone encounter Note * Telephone Encounter - Danni Muse LPN - 09/15/2024 1:26 PM EST Left message to call and speak with nurse. [facility]02-17-2025 Telephone encounter Note* Telephone Encounter - Danni Msue LPN - 09/15/2024 1:25 PM EST ----- Message from Boston Lopez MD sent at 09/15/2024 10:11 AM EST ----- Please let her know her echo is ok. [facility]01-29-2025 History of Present illness Narrative* Valeri Marlow, [...] PATIENT PRESENTS WITH AN IMPLANTABLE OR ATTACHED SEISMIC COMPUTER: No RADIOLOGY DEPARTMENT: General X-ray: Exam(s) Completed: Chest X-Ray PERIPHERAL IV DATA: Not applicable SIGNED BY: RT Mendoza(R) August 27, 2024 1:45 PM documented in this encounterMercy [facility] Hospital01-29-2025 NoteHNO ID: [id number] Author: VALERI MARLOW RT(R) Service: Radiology Author [...] PATIENT PRESENTS WITH AN IMPLANTABLE OR ATTACHED SEISMIC COMPUTER: No RADIOLOGY DEPARTMENT: General X-ray: Exam(s) Completed: Chest X-Ray PERIPHERAL IV DATA: Not applicable SIGNED BY: RT Mendoza(R) August 27, 2024 1:45 [facility]01-29-2025 NoteHNO ID: [id number] Author: BOSTON LOPEZ MD Service: ? Author [...] No history of dysuria, frequency or incontinence COMMERCIAL CARPENTER: Negative for abnormal vaginal bleeding, abnormal vaginal [...] BLOOD COUNT AND DIFFERENTIAL (more content not included)...[facility]01-29-20[facility] History of Present illness Narrative* Boston Lopez [...] No history of dysuria, frequency or incontinence COMMERCIAL CARPENTER: Negative for abnormal vaginal bleeding, abnormal vaginal [...] four weeks or prn. documented in this encounterMercy [facility] Hospital11-07-2024 NoteHNO ID: [id number] Author: JESICA JOHNSON APRN.MID LEVEL JAVA DEVELOPER Service: ? Author Type: Nurse Specialist Type: Progress Notes Filed: 06/05/2024 14:00 Note Text: DENISA Lott is a 29 year old female who presents with 2 days of symptoms that are worsening. She reports was seen at [facility] and advised she may have walking [...] complete if needed/not improving . Jesica Johnson APRN.KEYANA Medical Decision Making: Problems: Low: Acute, uncomplicated illness or injury Data: Unique test(s) ordered: 1 Risk: Moderate: Drug management Medical Decision Making Level: 3 - [facility]Ohio[facility]11-07-2024 History of Present illness Narrative* Jesica Johnson APRN.MID LEVEL JAVA DEVELOPER - 06/05/2024 1:39 PM EST SUBJECTIVE Kim Lott is a 29 year old female who presents with 2 days of symptoms that are worsening. She reports was seen at [facility] and advised she may have walking [...] complete if needed/not improving . Jesica Johnson APRN.MID LEVEL JAVA DEVELOPER Medical Decision Making: Problems: Low: Acute, uncomplicated illness or injury Data: Unique test(s) ordered: 1 Risk: Moderate: Drug management Medical Decision Making Level: 3 - Low documented in this encounterMercy [facility] Hospital11-05-2024 Telephone encounter Note * Telephone Encounter - [...] dizzy, cough, difficulty breathing Protocols used: Chest Mqxa-DILXO-ZY [facility]11-05-2024 Miscellaneous Notes* Telephone Encounter - Miriam Baez [...] dizzy, cough, difficulty breathing Protocols used: Chest Yyos-PRLMK-WS documented in this encounterMercy Memorial Hospital01-04-2024 NotePap Smear Specimen AdequacyJanuary 2023 11:59pmComment.Satisfactory for evaluation. Endocervical and/or squamous metaplasticcells (endocervical component)are present.[facility] INTER[facility]ACED A#[id number] Health Bryan HospitalComment on above: Satisfactory for evaluation. Endocervical and/or squamous metaplasticcells (endocervical component)are present.08-02-2023 NotePap Smear Specimen Adequacy August 02, 2023 11:59pmComment.Satisfactory for evaluation. Endocervical and/or squamous metaplasticcells (endocervical component)are present.[facility] INTERFACED A#[id number] Health Bryan HospitalComment on above:Satisfactory for evaluation. Endocervical and/or squamous metaplasticcells (endocervical component)are present.08-02-2023 NotePap Smear Specimen AdequacyJanuary 2023 11:59pmComment.Satisfactory for evaluation. Endocervical and/or squamous metaplasticcells (endocervical component)are present.[facility] INTER[facility]ACED A#[id number] Health Bryan HospitalComment on above:Satisfactory for evaluation. Endocervical and/or squamous metaplasticcells (endocervical component)are present.08-02-2023 NotePap Smear Specimen AdequacyJanuary 2023 11:59pmComment.Satisfactory for evaluation. Endocervical and/or squamous metaplasticcells (endocervical component)are present.[facility] INTERFACED A#[id number] Health Bryan HospitalComment on above:Satisfactory for evaluation. Endocervical and/or squamous metaplasticcells (endocervical component)are present.07-09-2023 Discharge summary Author Sherwin Mendoza [facility] July 09, 2023 4:40pm Note Date/Time July 09, 2023 2:14pm [facility] Medical Records Department [address] [place] [address] Emergency Department Summary 07/09/23 MR#: [id number] Acct: [id number] Name: KIM LOTT Rep #:[id number] : 1995 28 From: Sherwin Mendoza MD [...] Urinalysis is normal. Patient will follow-up with [facility]. If she has further bleeding pain and vomiting or other concerns she should return. Lab Data Attestation: I reviewed the patient's lab results. Labs: Laboratory Results - last 24 hr 07/09/23 15:46 Urine Color Yellow Urine Clarity Clear Urine pH 7.0 Ur Specific [place] 1.005 Urine Protein Negative Urine Glucose (UA) [...] your Primary Care Provider. Call [facility] ([phone]) or report to the closest Emergency Room. Call 911 if necessary. 07/09/23 1640 <Electronically signed by Sherwin Mendoza MD> Cosigner Signature (if applicable): CC: Dr. Boston Lopez MD ~ Signed [facility] Work Phone: 1(421) 218-836808-31-2023 History of Present illness Narrative* Boston Lopez [...] visit. Either the patient or their legal phone representative has been informed of the risks [...] BLD Boston Lopez MD documented in this encounterMercy Memorial Hospital08-07-2023 Discharge summary Author Chioma Bradley [facility] March 05, 2023 12:53pm Note Date/Time March 05, 2023 11: 54am [facility] Medical Records Department [address] [place] [address] [place] [address] Instructions for Home/Discharge Instructions 03/05/23 1153 MR#: [id number] Acct: [id number] Name: KIM LOTT Rep #: : 1995 [...] CC: Dr. Boston Lopez MD ~ Signed [facility] Work Phone: 1(278) 853-738708-07-2023 History and physical note Author Chioma Bradley [facility] March 05, 2023 11:52am Note Date/Time March 05, 2023 11: 52am [facility] Medical Records Department [address] [place] [address] H&P Exam - JUVENILE CORRECTIONAL OFFICER 03/05/23 1150 MR#: [id number] Acct: [id number] Name: KMI LOTT Rep #: : 1995 27 From: Chioma meredith DO PCP: Dr. Boston Lopez MD Status:REG S DC Location: [place] [address] History and Physical Date of Admission: 03/05/23 HPI: 27-year-old G1 at 13 weeks presenting for suction dilation curettage for missed . Denies headache vision changes, chest pain or shortness of breath, nausea or vomiting, fevers or cough, diarrhea or constipation. 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 Boston Lopez MD~ Signed [facility] Work Phone: 1(335) 534-330608-07-2023 Procedure [facility] 02-01-2023 History of Present illness Narrative* Boston [...] [address] Bradley at [facility] for her ob care. Pedro Pablo [...] EARLY <=30 DAY SYMPTOMS - SED RATE SAUL Lopez MD documented in this encounterMercy Memorial Hospital01-05-2023 Miscellaneous Notes* Result Encounter Note - Nicolle Marshall - 08/03/2022 10:49 AM EST Normal pap letter sent documented in this encounterMercy Memorial Hospital01-03-2023 Instructions* Patient Instructions* Destiney Mccarthy APRN.CNP - 08/01/2022 1:47 PM EST vitamin with 0.4 mg folic acid documented in this encounterMercy Memorial Hospital01-03-2023 History of Present illness Narrative* Destiney Mccarthy APRN.CNP - 08/01/2022 1:26 PM EST Intake Clerk offered: Patient declinesLyubov Alvarez is a 27 [...] OB History No obstetric history on file. 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 documented in this encounterMercy Memorial Hospital12-27-2022 History of Present illness Narrative* Valeri [...] 25, 2022 1:52 PM documented in this encounterMercy Memorial Hospital12-27-2022 History of Present illness Narrative* Boston [...] BLD Boston Lopez MD documented in [facility] encounterSt[facility] No data available for this section [facility] Evaluation noteNo assessment information available [facility] Work Phone: evaluation note* Diagnosis Well adult exam- Primary Routine general medical examination at a health care facility Pain of finger of left hand Pain in limb Screening for cervical cancer Screening for malignant neoplasm of the cervix Acute cough Screening for lipid disorders Screening for diabetes mellitus (DM) Screening for diabetes mellitus documented in this encounter [facility]* Diagnosis Encounter for gynecological examination (general) (routine) without abnormal findings- Primary Screening for cervical cancer Screening for malignant neoplasm of the cervix Screen for STD (sexually transmitted disease) Screening examination for venereal disease documented in this encounter [facility] note* Diagnosis Erythema migrans- Primary [facility] Diagnosis Brittle nails- Primary Other specified disease of nail Hair loss Alopecia, unspecified Family history of thyroid disease Family history of other endocrine and metabolic diseases [facility] this [facility] Diagnosis Onset Date Resolution Status Bicornate uterus acute History of miscarriage, currently acute acute Raynauds disease acute Spotting acute Supervision of high-risk acute [facility] Work Phone: Evaluation note* Diagnosis Onset Date Resolution Status Bicornate uterus acute History of miscarriage, currently acute acute Raynauds disease acute Spotting acute Supervision of high-risk acute Bicornate uterus acute History of miscarriage, currently acute acute Raynauds disease acute Spotting acute Supervision of high-risk acute [facility] Work Phone: evaluation note* Diagnosis Onset Date Resolution Status Bicornate uterus acute History of miscarriage, currently acute acute Raynauds disease acute Supervision of high-risk acute Spotting resolved Bicornate uterus acute History of miscarriage, currently acute acute Raynauds disease acute Supervision of high-risk acute Spotting resolved Bicornate uterus acute History of miscarriage, currently acute acute Supervision of high-risk acute [facility] Work Phone: evaluation note* Diagnosis Onset Date [...] Supervision of high-risk acute Uterine synechiae acute [facility] Work Phone: Evaluation note* Diagnosis Pain of finger of left hand Pain in limb [facility] Diagnosis Sinobronchitis- Primary Unspecified sinusitis (chronic) Acute cough Fever, unspecified fever cause [facility] Diagnosis Well adult exam- Primary Routine general medical examination at a health care facility Chest pain, unspecified type Encounter for screening examination for other mental health and behavioral disorders Screening for depression Well adult exam Routine general medical examination at a health care facility [facility] Diagnosis Well adult exam Routine general medical examination at a health care facility documented [facility] this [facility] Diagnosis Onset Date Resolution [...] 2024 1:55pm Hx of depression, currently acute March 1:55pm acute March 1:55pm Supervision of high-risk acute April 28, 2025 1:55pm [facility] Work Phone: Hospital Discharge instructions Additional Instructions Take ibuprofen and Tylenol as needed for cramping.[facility] Work Phone: Hospital Discharge instructions No data available for this section [facility] Progress note No data available for this section [facility] Prokhviy note Author Roger Marshall [facility] Note Date/Time May 04, 2025 9: 30am [facility] [address] [place] [address], [address] [place] [address] OFFICE VISIT Date of Service: 05/04/25 MR#: [id number] Acct: [id number] Name: KIM LOTT Rep # : [id number] : 1995 Provider: JESUS Marshall Age/Sex: 30/F [place] [facility] [place] Status: Signed Intake Vital Signs 04/28/25 14:01 05/04/25 09:14 Height 5 ft 7 in 5 ft 7 in Weight: 136 lb 2 oz BMI 21.3 BP 117/79 Intake Visit Reasons: 9.5w, bleeding Chief Complaint: 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, 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 [place] appropriate handout given. 05/04/25 3715 <Electronically signed by Roger baez CNM> Date _ Roger Marshall CNM Cosigner Signature: Date (if applicable) CC: ~ [facility] Work Phone: Reason for referral (narrative)* Diagnostic Procedure Only (Routine) - Closed Specialty Diagnoses / Procedures Referred By Contac t Referred To Contact XR IMAGING Diagnoses Pain of finger of left hand Procedures XR HAND GENERAL 3V PA/LAT/OBL LEFT RADEX HAND MINIMUM 3 VIEWS Boston Lopez MD [address] [place] [address] [place] [address] Referral ID Status Reason Start Date Expiration Date V isits Requested Visits Authorized [id number] Closed Auto-Generate d Referral 07/25/2022 08/24/2023 1 1 [facility] for referral (narrative)* Outpatient Procedure (Routine) - Authorized Specialty Diagnoses / Procedures Referred By Cassandra t Referred To Contact [facility] Diagnoses Chest pain, unspecified type Procedures ECHO ECHO TTHRC R-T 2D W/WOM-MODE COMPL SPEC&COLR D Boston Lopez MD [address] [place] [address] [facility] [address] [id number] Referral ID Status Reason Start Date Expiration Date Visits Requested Visits Authorized [id number] Authorized Auto-Generat ed Referral 08/27/2024 08/27/2025 1 1 * Outpatient Procedure (Routine) - New Request Specialty Diagnoses / Procedures Referred By Contac t Referred To Contact [facility] Diagnoses Chest pain, unspecified type Procedures ECG COMPLETE ECG ROUTINE ECG W/LEAST 12 LDS W/I&R Boston Lopez MD [address] [place] [address] [facility] [address] [place] [address] Referral ID Status Reason Start Date Expiration Date Visits Requested Visits Authorized [id number] New Request Auto-Generat ed Referral 08/27/2024 08/27/2025 1 1 [facility]ative)No reason for referral information availableWSelect [facility] Work Phone: Reason for visit Narrative* Diagnostic Procedure Only (Routine) - Closed Specialty Diagnoses / Procedures Referred By Contac t Referred To Contact XR IMAGING Diagnoses Pain of finger of left hand Procedures XR HAND GENERAL 3V PA/LAT/OBL LEFT RADEX HAND MINIMUM 3 VIEWS Boston Lopez MD [address] [place] [address] [place] [address] Referral ID Status Reason Start Date Expiration Date V isits Requested Visits Authorized [id number] Closed Auto-Generate d Referral 07/25/2022 08/24/2023 1 1 [facility] Summary Purpose Family History No Family History Records Found Relationship Condition Age at Onset Recorded Date/T sofia mother Hypertension Unknown Hypothyroidism Unknown Advance Directives No Advanced Directives Records Found Advance Directive Response Recorded Date/ Time Living Will No March 02, 2023 2:16pm Power of Tree Specialist No March 02 2:16pm Advance Directive Response Recorded Date/ Time Living Will No July 09 2:19pm Power of Tree Specialist No July 09, 2023 2:19pm Advance Directive Response Recorded Date/ Time Living Will No August 18 10:59pm Power of Tree Specialist No August 18, 2023 10:59pm Advance Directive Response Recorded Date/ Time Living Will No August 18 11:59pm Power of Tree Specialist No August 18, 2023 11:59pm Chief Complaint and Reason for Visit Chief Complaint SKIN Chief Complaint INT LABS abd cramping, pregancy Chief Complaint INT LABS abd cramping, pregancy E-ORDER VIABILITY Chief Complaint INT LABS abd cramping, pregancy E-ORDER VIABILITY NOB LMP 06/03 Reason for Visit Bicornate uterus History of [...] 4: 11pm Z78.9 Other specified health status [facility] 2024 4:07pm -VIABILITY, HX MISCARRIAGE [facility] 2024 4:07pm Chief Complaint Admit Date Amenorrhea March 22, 2025 4: 11pm Z78.9 Other specified health status [facility] 2024 4:07pm -VIABILITY, HX MISCARRIAGE [facility] 2024 4:07pm *EST* NOB US#1 04/01/25 ONDINA 11/27/25 [facility] 2024 1:55pm Reason for Visit Admit Date Amenorrhea April 28, 2025 1:55pm Bicornate uterus April 28, 2025 1:55pm Lulu positive April 28, 2025 1:55pm Family history of ITP April 28 1:55pm History of human papilloma virus [facility] 2024 1:55pm History of miscarriage, currently pregna nt April 28, 2025 1:55pm Hx of section April 28, 2 025 1:55pm Hx of depression, currently p regnant April 28, 2025 1:55pm April 28, 2025 1:55pm Supervision of high-risk [facility] 2024 1:55pm Chief Complaint Admit Date Amenorrhea March 22, 2025 4: 11pm Z78.9 Other specified health status [facility] 2024 4:07pm -VIABILITY, HX MISCARRIAGE [facility] 2024 4:07pm *EST* NOB US#1 04/01/25 ONDINA 11/27/25 [facility] 2024 1:55pm 9.5w, bleeding May 04, 2025 9: 08am Reason for Visit Admit Date Amenorrhea April 28, 2025 1:55pm Bicornate uterus April 28, 2025 1:55pm Lulu positive April 28, 2025 1:55pm Family history of ITP April 28 1:55pm History of human papilloma virus [facility] 2024 1:55pm History of miscarriage, [...] Referred By Cassandra t Referred To Contact Gynecology Diagnoses Screening for cervical cancer Procedures CONSULT TO GYNECOLOGY OFFICE/OUTPATIENT NEW HIGH MDM 60-74 MINUTES Boston Lopez MD [address] [place] [address] Referral ID Status Reason Start Date Expiration Date Visits Requested Visits Authorized [id number] Authorized PCP Requested Referral Auto-Generate d Referral 07/25/2023 1 1 Specialty Diagnoses / Procedures Referred By Cassandra martinez Referred To Contact XR IMAGING Diagnoses Pain of finger of left hand Procedures XR HAND GENERAL 3V PA/LAT/OBL LEFT RADEX HAND MINIMUM 3 VIEWS Boston Lopez MD [address] [place] [address] Xr Imaging Referral ID Status Reason Start Date Expiration Date V isits Requested Visits Authorized [id number] Closed Auto-Generate d Referral 07/25/2022 08/24/2023 1 1 Health Concerns Infection Onset Date Last Indicated Resolved Time COVID-19 Confirmed 07/25/2022 07/25/2022 Additional Source Comments INFORMATION SOURCE (unrecogn ized section and content) DATE CREATED AUTHOR 01/31/2018 [facility] DATE CREATED AUTHOR AUTHOR'S ORGANIZ ATION 03/06/2020 [facility] DATE CREATED AUTHOR AUTHOR'S ORGANIZ ATION 01/12/2021 [facility] DATE CREATED AUTHOR AUTHOR'S ORGANIZ ATION 01/26/2024 [facility] DATE CREATED AUTHOR AUTHOR'S ORGANIZ ATION 02/26/2024 [facility] DATE CREATED AUTHOR AUTHOR'S ORGANIZ ATION 05/07/2025 [facility] DATE CREATED AUTHOR AUTHOR'S ORGANIZ ATION 06/05/2025 [facility] Goals (unrecognized section and content) Type Care [...] or prosecute any alcohol or drug abuse patient.[facility] Hospital[facility] the event this information is protected by the Federal Confidentiality of Alcohol and Drug Abuse Patient Records regulations: The Federal rules restrict any use of the information to criminally investigate or prosecute any alcohol or drug abuse patient.[facility] Hospital[facility] the event this information is protected by the Federal Confidentiality of Alcohol and Drug Abuse Patient Records regulations: The Federal rules restrict any use of the information to criminally investigate or prosecute any alcohol or drug abuse patient.[facility] HospitalIn the event this information is protected by the Federal Confidentiality of Alcohol and Drug Abuse Patient Records regulations: The Federal rules restrict any use of the information to criminally investigate or prosecute any alcohol or drug abuse patient.[facility] HospitalIn the event this information is protected by the Federal Confidentiality of Alcohol and Drug Abuse Patient Records regulations: The Federal rules restrict any use of the information to criminally investigate or prosecute any alcohol or drug abuse patient.[facility] HospitalIn the event this information is protected by the Federal Confidentiality of Alcohol and Drug Abuse Patient Records regulations: The Federal rules restrict any use of the information to criminally investigate or prosecute any alcohol or drug abuse patient.[facility] HospitalIn the event this information is protected by the Federal Confidentiality of Alcohol and Drug Abuse Patient Records regulations: The Federal rules restrict any use of the information to criminally investigate or prosecute any alcohol or drug abuse patient.[facility] HospitalIn the event this information is protected by the Federal Confidentiality of Alcohol and Drug Abuse Patient Records regulations: The Federal rules restrict any use of the information to criminally investigate or prosecute any alcohol or drug abuse patient.[facility] HospitalIn the event this information is protected by the Federal Confidentiality of Alcohol and Drug Abuse Patient Records regulations: The Federal rules restrict any use of the information to criminally investigate or prosecute any alcohol or drug abuse patient.[facility] HospitalIn the event this information is protected by the Federal Confidentiality of Alcohol and Drug Abuse Patient Records regulations: The Federal rules restrict any use of the information to criminally investigate or prosecute any alcohol or drug abuse patient.[facility] HospitalIn the event this information is protected by the Federal Confidentiality of Alcohol and Drug Abuse Patient Records regulations: The Federal rules restrict any use of the information to criminally investigate or prosecute any alcohol or drug abuse patient.[facility] Reason for Visit (unrecogniz ed section and content) Reason Comments Establish Care physical Reason Comments Results Reason Comments Well Woman Specialty Diagnoses / Procedures Referred By Cassandra t Referred To Contact Gynecology Diagnoses Screening for cervical cancer Procedures CONSULT TO GYNECOLOGY OFFICE/OUTPATIENT [facility] 60-74 MINUTES Boston Lopez MD [address] [place] [address] Referral ID Status Reason Start Date Expiration Date V isits Requested Visits Authorized [id number] Closed PCP Requested Referral Auto-Generated Referral 07/25/2022 [...] Dr. Chioma Bradley DO Attending Provider Active Inspector Returned Materials Relationship Specialty Start Date End Date Boston Lopez MD [address] [place] [address] PCP - General Family Medicine 02/01/23 Team Status: Inactive Member Role Status Dates No Primary Care Physician Primary Care Provider Active Dr. Refugio Barriga MD Attending Provider, Referring Pro vider Active Team Status: Inactive Member Role Status Dates Dr. Chioma Bradley DO Attending Provider, Referrin g Provider Active Dr. Boston Lopez MD Primary Care Provider Active Inspector Returned Materials Relationship Specialty Start Date End Date Boston Lopez MD [address] [place], [place] [id number] PCP - General Family Medicine 02/01/23 Team [...] Provider, Referring Provider Active Ria Aviles NP, METAL TANK BUILDER-C Attending Provider Active Team Status: Inactive Member [...] Nicolle Massey DO Attending Provider Activ e Inspector Returned Materials Relationship Specialty Start Date End Date Boston Lopez MD [address] [place] [address] PCP - General Family Medicine 02/01/23 Inspector Returned Materials Relationship Specialty Start Date End Date Boston Lopez MD [address] [place] [address] PCP - General Family Medicine 02/01/23 Inspector Returned Materials Relationship Specialty Start Date End Date Boston Lopez MD [address] [place] [address] PCP - General Family Medicine 02/01/23 Syeda Fagan, RUG BACKING STENCILER.TRUCK MECHANIC [address] [place] [address] Product Development Assistant Family Medicine 07/07/24 Luli Plummer, RUG BACKING STENCILER.TRUCK MECHANIC [address] [facility] [address] Product Development Assistant Family Medicine 07/07/24 Inspector Returned Materials Relationship Specialty Start Date End Date Boston Lopez MD [address] [place] [address] PCP - General Family Medicine 02/01/23 Syeda Fagan, RUG BACKING STENCILER.TRUCK MECHANIC [address] [place] [address] [facility] 07/07/24 Luli Plummer RUG BACKING STENCILER.TRUCK MECHANIC [address] [place], [place] [address] [facility] 07/07/24 Inspector Returned Materials Relationship Specialty Start Date End Date Boston Lopez MD [address] [place], [place] [id number] PCP - General Family Medicine 02/01/23 Syeda Fagan APRN.TRUCK MECHANIC [address] [place], [place] [address] [facility] 07/07/24 Luli Plummer RUG BACKING STENCILER.TRUCK MECHANIC [address] [place], [place] [address] [facility] 07/07/24 Team Status: Active Member Role/Relationship Status [...] BE BASED ON THE PRIMARY CLINICAL RECORDS. [facility] [employer] [facility]. provides no warranty or guarantee of the accuracy or completeness of information in this document.
--- NOTE | 2025-06-05 08:34 | HP.PCM_ITS ---
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: No Is patient in pain?: No Allergies pollen extracts Allergy (Verified 06/04/25 13:04) Unknown Medications ?Medication ?Instructions ?Recorded ?Confirmed ?Type multivitamin no.47-iron fum 27 cap PO 04/16/25 06/04/25 History mg-folate no.1 1 mg-dha 300 mg capsule (PNV-DHA) misoprostol 200 mcg tablet 200 mcg PO ONCE #1 TAB 06/04/25 06/04/25 Rx (Cytotec) Last Menstrual Period: 06/03/23 : No Have you fallen in the past year?: No PFSH PFSH Medical History Bicornate uterus History of miscarriage, currently Supervision of high-risk contractions Abnormal Pap smear of cervix Seasonal allergies Raynauds disease Non-smoker Acute bacterial conjunctivitis Influenza A Surgical History Hx of section H/O dilation and curettage History of wisdom tooth extraction (~12/2021) History of appendectomy (~2003) Family History Mother Hypertension Hypothyroidism Social History adopted: No household members: spouse and children housing: house number of children: 1 current occupational status: employed 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 current occupational exposures/hazards: No pets and animals: Yes pets and animals: dog(s) history of recent travel: Yes ( -January, -December) out of state: Yes out of country: No sexually active: Yes Smoking Status: Never smoker alcohol intake: former year quit: 2024 substance use type: does not use well-balanced diet: about half the time caffeine: No eating out: 1-3 times/week during the past year weight has: decreased > 10 lbs what type of physical activity do you participate in: walking frequency: 1-2 times per week duration: 15-30 minutes/day juan daniel/mu-ism: Scientologist seatbelt use: always do you feel safe at home: Yes additional social history: [employer]- [employer] History 3 Elective abortions Hx Para 1 Spontaneous abortions 1 Hx # Term Pregnancies Ectopic pregnancies Hx # Pregnancies Multiple births # of living children 1 Past Pregnancies Del. Date Name GA/Weeks Outcome Route Bth Weight Gen Labor Lgth Anesthesia Del Locatn Provider FOB 03/05/23 miscarriage 13 spontaneous 02/19/24 Sundeep 37 live - full term 7lbs Male spinal [facility] JV Medardo Delivery Date: 03/05/23 Last Updated by: Gini Schuler D&C Delivery Date: 02/19/24 Last Updated by: Kaitlynn Rousseau RN primary section for breech HPI OB spotting Details: ARETHA MARTINEZ is a 30 year old who presents for a dilation and evaulation of demised 13 week 6 day fetus. She started bleeding early this am. Surgery was initially scheduled for 2:00 today but is being moved up to 9:30 due to hemorrhaging. CBC stable at 12. OB Visit ONDINA Calculator Estimated Delivery Date Method Current WG Current Estimate 12/02/25 Ultrasound #2 14w 1d Other Estimates 11/27/25 Ultrasound #1 14w 6d Expected Delivery Route/Plan for repeat cs with JV at 39 weeks Specific Issue/Plans Covid status: [] Flu vaccine: [] Tdap vaccine: [] Rhogam: [] LARC form signed: [] Problem list reviewed and updated with the most current plan of care details and appropriate orders placed. Relevant counseling for the gestational age provided. Continue routine care and follow up unless otherwise noted in visit notes/problem list details Initial Weight: Not Recorded Date -?-?-?-?-?-?-?-?-?-?-?-?- EGA Weight BP Urine Prot -?-?-?-?-?-?-?-?-?-?-?-?- Glucose FHR FuHt Pres Dilation -?-?-?-?-?-?-?-?-?-?-?-?- Effaced St Visit Note 04/28/25-?-?-?-?-?-?-?-?-?-?-?-?- 8w 6d 138 lb 6 oz 120/80 -?-?-?-?-?-?-?-?-?-?-?-?- 188 -?-?-?-?-?-?-?-?-?-?-?-?- JV- CRL still consistent with last ultrasound. ONDINA 12/02/24. declines NIPT 05/04/25-?-?-?-?-?-?-?-?-?-?-?-?- 9w 5d 136 lb 2 oz 117/79 -?-?-?-?-?-?-?-?-?-?-?-?- 179 -?-?-?-?-?-?-?-?-?-?-?-?- KW- work in for vaginal bleeding-had a gush of blood about 45 minutes prior to appt. no cramping. movement and FHT noted with US. CRL 2.60cm and cons with dates. bleeding precautions reviewed. 05/26/25-?-?-?-?-?-?-?-?-?-?-?-?- 12w 6d 141 lb 3 oz 136/84 Negative -?-?-?-?-?-?-?-?-?-?-?-?- Negative 170 -?-?-?-?-?-?-?-?-?-?-?-?- SM- has still been bleeding on and off for several week but increased i the last few days. there is a clot over the cervix possible marginal previa- will get formal scan. 06/04/25-?-?-?-?-?-?-?-?-?-?-?-?- 14w 1d 140 lb 5 oz 120/78 Negative -?-?-?-?-?-?-?-?-?-?-?-?- Negative -?-?-?-?-?-?-?-?-?-?-?-?- JV- pt is here for heavier bleeding. on exam cx is closed, there is no heart tone however and fetus appears curled up, measuring 13 weeks 6 days. plan is for D&E likely tomorrow. ACOG First Trimester First Trimester: Desire for , Alcohol, Tobacco Cessation, Illicit/Recreational Drug/Substance Use, Intimate Partner Violence, Barriers to care, Unstable Housing, Communication Barriers, Environmental/Work Hazards, Anticipated Course of Care, Toxoplasmosis Precations, Use of Any medications, Sexual activity, Exercise, Dental Care, Sauna/Hot tub use, Seat Belt use, Childbirth classes/Hospital facilities, Travel, Indications for Ultrasound and Screening for Aneuploidy; Discussed Second Trimester Second Trimester: Signs and Symptoms of Labor, Selecting a care provider, Reproductive Life Planning & Contreception and Care Planning; Discussed Tobacco Cessation, Discussed Depression/Anxiety and Discussed Intimate Partner Violence Third Trimester Third Trimester: Pain Management Plans, Labor support person(s), Immediate Larc, Circumcision preference, Signs and Symptoms of Preeclampsia, Infant Feeding No , [place] Education and Family Medical Leave or Disability Forms ROS Const All systems reviewed & are unremarkable except as noted in H Resp Reports system reviewed and no additional complaints, except as documented and Denies cough GI Reports as per HPI Psych Reports system reviewed and no additional complaints, except as documented Exam Const General: cooperative, healthy appearing, comfortable and no acute distress Resp Effort & Inspection: normal respiratory effort Skin General: no rashes or lesions noted Psych Appearance: grossly normal Speech and Movement: speech and movement normal Results POC Urinalysis 2 Dip (Clinic) Office Urine Glucose Negative Last Edit by Carla Law on 06/04/25 13:12 Office Urine Protein Negative Last Edit by Carla Law on 06/04/25 13:12 Coding Level of Care Code Attention Jose G Diagnoses History of miscarriage, currently O09.299 Lulu positive R76.8 Supervision of high-risk O09.90 14 weeks gestation of Z3A.14 Weeks of gestation: 14 weeks Bicornate uterus Q51.3 Hx of section Z98.891 Hx of depression, currently O99.891; Z86.59 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 Amenorrhea N91.2 Family history of ITP Z83.2 Incomplete O03.4 Assessment and Plan Assessment and Plan (1) History of miscarriage, currently : Status: Acute (2) Lulu positive: Status: Acute Comment: *PRIOR * Son had Lulu (3) Supervision of high-risk : Status: Acute Comment: , ONDINA 11/27/25, JUDI Urbano, Medardo (4) : Status: Acute Qualifiers: Weeks of gestation: 14 weeks Qualified Code(s): Z3A.14 - 14 weeks gestation of Comment: declined NIPT & Carrier testing (5) Bicornate uterus: Status: Acute (6) Hx of section: Status: Acute (7) Hx of depression, currently : Status: Acute (8) History of human papilloma virus: Status: Acute Comment: +HPV 2019, colp nml, negative since (9) Amenorrhea: Status: Acute Comment: HCGx2 (10) Family history of ITP: Status: Acute Comment: Pt's Father in law (11) Incomplete : Status: Acute Plan: After discussing the patient's diagnosis and treatment plan options, patient wishes to proceed with surgical management. I have discussed with the patient the risks, benefits, and alternatives of the procedure which include but are not limited to risks of anesthesia, bleeding, infection, possible damage to bowel, bladder, or surrounding vasculature which could lead to additional surgery to evaluate any complications. Patient agrees to procedure and wishes to proceed. ACOG/uptodate references given for additional information regarding procedure. plan suction D&E. Doxycycline, TXA prior to surgery. Methergine on standby
[2025-06-05] MEDS: Lactated Ringers 1,000 ML 15 ML IV (08:49)
--- NOTE | 2025-06-05 09:11 | PCM.PRE.AN2 ---
ASA Classification* ASA Classification ASA Classification: 2 and E Assessment & Plan Anesthesia* Anesthesia Assessment Anesthesia Assessment: Discussed sedation and/or anesthesia options, risks, benefits, and alternatives with patient/parents/legal guardian/POA. Questions invited. The patient/parents/legal guardian/POA seems to understand and agrees to proceed with anesthesia plan. Reviewed the physical assessment, medical history, allergy history and patient home medications list prior to surgery/procedure/anesthetic and documented any changes. Performed airway and anesthesia risk assessments. Anesthesia Type Anesthesia Type: MAC History Source History Obtained from:: Patient and Chart Anesthesia Focused Assessment* Temperature: 98.6 F Pulse Rate: 91 Blood Pressure: 106/81 Respiratory Rate: 16 Pulse Ox: 99 Oxygen Delivery Method: Room Air Airway Assessment Mouth opens: >3 cm Mallampati Score: IV Teeth Condition: Intact Neck Range of motion (ROM): Full ROM Labs Anesthesia Preop lab: CBC WBC, (4.4-11.0) 5.9 K/mm3 Today, 05:20 RBC, (4.2-5.4) 4.02 M/mm3 L Today, 05:20 Hgb, (12.0-15.0) 12.1 g/dL Today, 05:20 Hct, (37-47) 36.4 % L Today, 05:20 Plt Count, (150-450) 169 K/mm3 Today, 05:20 CHEMISTRY Potassium, (3.5-5.1) 3.4 mmol/L L 01/05/24, 02:35 Sodium, (136-145) 137 mmol/L 01/05/24, 02:35 BUN, (7-18) 7 mg/dL 01/05/24, 02:35 Creatinine, (0.55-1.02) 0.54 mg/dL L 01/05/24, 02:35 Glucose, (74-106) 96 mg/dL 01/05/24, 02:35 COAG HCG, Quant, (<9 non-preg) 3487 mIU/mL H Today, 05:20 Pre-Assessment Diagnosis/Proposed Procedure Planned Operative Procedure(s): Suction D&C. Anesthesia History Anesthesia History - head of sales and marketing: Anesthesia History - head of sales and marketing Hx Hospitalization Yes: 01/202406/04/25 14:53 Any Problems With Anesthesia No 06/05/25 07:41 Cholinesterase deficiency No 06/04/25 14:53 You/Your Family Experience No 06/04/25 14:53 fever (hyperthermia) with Relationship Recent Exposure to Contagious No 06/05/25 08:36 Disease Does patient have nerve No 06/05/25 07:41 stimulator Patient instructed to have device shut off --Does patient have Pacemaker No 06/05/25 08:36 or ICD? When Was Last Pacemaker Check QUESTION #4 FULL TEXT: You/Your Family Experience fever (hyperthermia) with Anesthesia Last Oral Intake Last Oral intake: Last Oral Intake NPO since 23:00 06/05/25 08:36 Meds taken in AM with sips of No 06/05/25 08:36 water? Meds patient instructed to take am of surgery Any additional information?: Yes NPO since: 04:30 (water) PONV PONV - head of sales and marketing: PONV - head of sales and marketing Female HX of Motion Sickness HX of N/V After Surgery Non-Smoker Duration of Surgery greater than 60 minutes Number of Risk Factors PONV Score Height & Weight Height & Weight: Anesthesia: Height & Weight Height 5 ft 7 in 06/05/25 08:36 Weight: 62.2 kg 06/05/25 08:36 Body Mass Index (BMI) 21.4 06/05/25 08:36 Respiratory Assessment Respiratory Assessment - head of sales and marketing: Respiratory Tract Infection Hx - head of sales and marketing Hx Respiratory Tract Infection Yes: (+) FEVER 101.7 06/04/25 14:53 2025, SORE THROAT currently STOP Sleep Apnea STOP Sleep Apnea - head of sales and marketing: STOP Sleep Apnea - head of sales and marketing Hx Hypertension No 06/05/25 07:41 Hx Sleep Apnea No 06/05/25 07:41 CPAP BIPAP Do you snore loudly (louder No 06/05/25 07:41 than talking or can be heard Do you often feel tired/ No 06/05/25 07:41 fatigued/ sleepy during daytime? Has anyone observed you stop No 06/05/25 07:41 breathing during sleep? STOP Results Negative 06/05/25 07:41 QUESTION #5 FULL TEXT : Do you snore loudly (louder than talking or can be heard through closed doors)? 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 Specify any problems Hx of Preganancy in last 3 Months Nurse Filling Out Transfusion & Questions: Date: Time: Patient unable to answer at this time (ie. confused, unrespo /Reproduction History /Reproductive History - head of sales and marketing: /Reproductive Hx- head of sales and marketing Hx Now Yes 06/05/25 07:41 Gestational Age (in weeks): EDC: Hx 2 06/05/25 05:08 Hx Para Hx Section SAB No 06/05/25 05:06 Does the father of the baby or his family experience fever w Father of the baby Malignant Hypertension history comment Active Medications Active Medications: Current Medications Generic Name Dose Route Start Last Admin Trade Name Freq PRN Reason Stop Dose Admin Doxycycline Monohydrate 100 mg 06/05/25 08:15 06/05/25 08:50 Doxycycline 100 Mg Capsule PO 100 mg X1 CELSO Administration Sodium Chloride 1,000 mls @ 100 mls/hr 06/05/25 06:55 IV .Q10H CELSO Lactated Ringer's 1,000 mls @ 15 mls/hr 06/05/25 08:45 06/05/25 08:49 IV 15 mls/hr .Q48H CELSO Administration PFSH Medical History contractions Abnormal Pap smear of cervix Bicornate uterus Seasonal allergies Raynauds disease History of miscarriage, currently Supervision of high-risk Non-smoker Acute bacterial conjunctivitis Influenza A Home Medications ?Medication ?Instructions ?Recorded ?Last Taken ?Type multivitamin no.47-iron fum 27 1 cap PO DAILY 04/16/25 Unknown History mg-folate no.1 1 mg-dha 300 mg capsule (PNV-DHA) misoprostol 200 mcg tablet 200 mcg PO ONCE #1 TAB 06/04/25 Unknown Rx (Cytotec) Allergy/AdvReac Type Severity Reaction Status Date / Time pollen extracts Allergy Unknown Verified 06/05/25 08:35 Family History Mother Hypertension Hypothyroidism Surgical History Hx of section H/O dilation and curettage History of wisdom tooth extraction (~12/2021) History of appendectomy (~2003) Social History adopted: No household members: spouse and children housing: house number of children: 1 current occupational status: employed 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 current occupational exposures/hazards: No pets and animals: Yes pets and animals: dog(s) history of recent travel: Yes ( -January, -December) out of state: Yes out of country: No sexually active: Yes Smoking Status: Never smoker alcohol intake: former year quit: 2024 substance use type: does not use well-balanced diet: about half the time caffeine: No eating out: 1-3 times/week during the past year weight has: decreased > 10 lbs what type of physical activity do you participate in: walking frequency: 1-2 times per week duration: 15-30 minutes/day juan daniel/denominational: Restorationism seatbelt use: always do you feel safe at home: Yes additional social history: Med[employer]- [employer] Review of Systems (Anesthesia) ROS Narrative System reviewed and no additional complaints, except as documented.
--- NOTE | 2025-06-05 09:30 | POC_PTH ---
PATIENT: ARETHA MARTINEZ LOC: [facility] U#:[id number] AGE/SX: 30/F ROOM: OK316 RE06/05/[address]: Dr. Nicolle Massey DO : 1995 BED: 1 DIS: 06/08/2025 SPEC #: [id number] RECD: 06/05/25 11:39 STATUS: RITCHIE PACKERAlexandra #: [id number] ML: 06/05/25 09:[address]: Nicolle Massey DEPT: SURGICAL PATHOLOGY RECD BY: Sy Keyes ENTERED: 06/08/25 10:16 SP TYPE: PROD CONC OTHR DR: Dr. Boston Card MD Tissues: A - Product of conception, NOS B - Colon, NOS Procedures: Surgery Specimen Level IV Surgery Specimen Level V HEADER OPERATION: Dilation and curettage and evacuation with Anora converted to open small bowel PRE-OP DIAGNOSIS: History of miscarriage currently , Lulu positive, supervision of high-risk , 14 weeks gestation of , bicornate uterus TISSUE SUBMITTED: A- Products of conception - ANORA TESTING, B- Small bowel segment MICROSCOPIC DIAGNOSIS A. Uterine contents, dilation and evacuation: - Immature placental villi, acutely inflamed and focally necrotic decidua, and parts, consistent with products of conception B. Small intestine, resection: * Transmural disruption with submucosal hemorrhage, benign MICROSCOPIC DESCRIPTION Slides are reviewed. GROSS DESCRIPTION A. Received fresh labeled patient's name and date of . Designated as products of conception-Anora testing is a 9.6 x 7.2 x 2.1 cm aggregate of adames-pink to red, irregular tissue fragments, mucoid material and clotted blood. parts are present. Fresh tissue is collected and sent for Anora testing. Shiftman sections are submitted in 3 cassettes as follows: A1-A2: Tissue fragmentsA3: parts B. Received in formalin labeled with the patient's name and date of . Designated as small bowel segment are 2 undesignated segments of adames-red to ivory, somewhat dusky bowel, as follows: Bowel segment #1: 56.1 cm in length by 0.4-1.9 cm in diameter. The mucosa is adames to green, focally congested with focal areas of wall thinning. Bowel segment #2: 21.1 cm in length by 0.3 cm in diameter with copious amounts of attached, congested soft tissue. The mucosa appears to be congested; however, the bowel is serially sectioned due to its narrow caliber. Shiftman sections are submitted in 4 cassettes as follows: B1-B2: Bowel segment #1B3-B4: Bowel segment #2 [place] 06/08/2025 CPT:67684,60048
[2025-06-05] MEDS: fentaNYL 100 MCG/2 ML Ampul IV (09:37)
[2025-06-05] MEDS: Midazolam 2 MG/2 ML Syringe IV (09:38)
[2025-06-05] MEDS: TRANEXAMIC ACID 1,000 MG/10 ML ML 1000 MG IV (10:02)
[2025-06-05] MEDS: Cefazolin 1 GM/5 ML Vial 2 GM IV (10:13)
[2025-06-05] MEDS: Bupiv/Epi 0.25% 30 ML Vial (11:05)
[2025-06-05] MEDS: Lidocaine 1% (20 ml mdv) 20 ML Vial (11:05)
--- NOTE | 2025-06-05 11:10 | RAD_ITS ---
PROCEDURE: ABDOMEN SINGLE VIEW (PORTABLE) 06/05/2025 REASON FOR EXAM: SPONGE COUNT TECHNIQUE: Procedure Code: RADABD_P Modality: DX Procedure: ABDOMEN SINGLE VIEW (PORTABLE) COMPARISON: None. RAD/Abdomen Single View (Portable) IMPRESSION: No radiopaque foreign body is seen in the included areas. No small bowel dilation is noted. No acute osseous process is evident. Reading Location: [place] [id number]
--- NOTE | 2025-06-05 11:21 | PCM.OPRPT ---
Multi Select Codes Urinary/Genital Urinary/Genital CPT Codes: 71954 Surg Trtmt missed Ab 2TM and Other Procedure See Report (Laparotomy and assistance with bowel resection, repair of uterine laceration) Operative Report (Standard) Operative Information Date of Procedure: 06/05/25 Pre-Operative Diagnosis: 13 week 6 day demise Post-Operative Diagnosis: 13 week 6 day demise, uterine perforation and bowel evisceration Surgery/Procedure Performed: suction dilation and curettage, laparotomy and repair of uterine perforation and bowel resection financing analyst: Yes Automotive Product Engineer: Osmany Rahman Tasks completed by first beater: Closing and Other (bowel reanastomosis) Additional community relations assistant?: Yes Additional Coater Operator Insulation Board #2: Cierra Desouza Tasks completed by community relations assistant #2: Closing and Hemostasis: Clamp Additional community relations assistant?: No Type of Anesthesia: General RN Documented Start/Stop Times: Operation Date: 06/05/25 09:30 Case Time Into Pre-Op 06/05/25 08:02 Out of Pre-Op 06/05/25 09:30 Anesthesia Start 06/05/25 09:32 Into Room 06/05/25 09:32 Procedure Start 06/05/25 09:50 Procedure End 06/05/25 11:13 Procedure Start Time: 09:50 Procedure Stop Time: 11:13 Select all DRAINS/GRAFTS/IMPLANTS that apply: None Special Medications: txa, methergine Estimated Blood Loss: 150cc Specimen collected: Yes Description of specimen(s) removed: tissue parts and segment of small bowel Description of surgery: The patient was brought to the operating room initially placed in a dorsal supine position legs in stirrups and MAC anesthesia was administered. A weighted speculum was placed in the vagina and the anterior lip of the cervix was grasped with single-tooth tenaculum. The cervix was progressively dilated to pass a 12 mm suction curettage into the uterus. The suction device was activated and parts were evacuated through the suction tubing. This was done under ultrasound guidance. The last piece to be left was the head. The suction device was not adequate to remove this structure and a long Kathryn was then used to grasp the head. As the forceps was pulled back a long stringy material came with it and did not appear to be uterine contents. General surgery was called stat into the room. Initially we did not think that this was anything of concern as the structure did not appear to look like intestines. Couple more tugs with a forceps was performed and at this moment I realized that this was in fact bowel. The decision was made to convert to an open procedure. With Dr. Rahman this help a midline incision was made with a scalpel after gloves were changed and the abdomen was prepped. Fascia was nicked in the midline and extended laterally using the Bovie. The rectus muscles were in the midline the peritoneum was entered sharply. The bowel was carefully pulled back through the opening of the uterus. While waiting for the GI stapler the uterus was also exteriorized and the remaining tissue was removed through the fundal portion of the uterus where the 3 cm incision was noted. The incision was extended slightly to perform a manual sweep of the uterus and to confirm that all parts were removed. The uterine incision was closed in a double layer suture using a 1-0 Vicryl followed by an 0 Monocryl. Excellent hemostasis was noted and fibrillar was applied to the top of the uterus. The uterus was then returned to the abdomen. Next Dr. Rahman performed a bowel resection excising the portion of the small intestines that was pulled to the uterus and performing an end-to-end reanastomosis. His part will be dictated separately. The pelvis was irrigated and excellent hemostasis was noted from all operative sites. To note no endometriosis or damage to the fallopian tubes ovaries or further damage to the uterus was noted. The uterus was noted to have a septum consistent with her known bicornuate uterus this was noted upon manual exploration earlier. Dr. Kemp read the perform the closure of the abdomen and at this time I performed a vaginal exam. The remaining parts in the vagina were removed. All parts were passed off for ANORA analysis. Excellent hemostasis was noted. An x-ray was performed at the completion of the procedure and no instruments or sponges were left behind. The patient is now being brought to the recovery room in stable condition Surgical Findings: Uterine perforation and bowel evisceration. Bicornuate uterus. Normal-appearing fallopian tubes and ovaries. Complications Complications: Yes Complication Details: Bowel evisceration repaired intraoperatively Admit VTE Documentation VTE Present on Admission: No VTE Mechan Device Prophylaxis: SCD's VTE Pharm Prophylaxis ordered?: Yes
--- NOTE | 2025-06-05 11:22 | OP.PCM_ITS ---
Operative Report (Standard) Operative Information Date of Procedure: 06/05/25 Pre-Operative Diagnosis: Small bowel injury Post-Operative Diagnosis: Same Surgery/Procedure Performed: Exploratory laparotomy with small bowel resection and anastomosis automobiles salesperson: Yes Automotive Parts Counter Associate: Cierra Desouza Tasks completed by cutting table operator first: Opening & closing and Retracting Type of Anesthesia: General/Regional RN Documented Start/Stop Times: Operation Date: 06/05/25 09:30 Case Time Into Pre-Op 06/05/25 08:02 Out of Pre-Op 06/05/25 09:30 Anesthesia Start 06/05/25 09:32 Into Room 06/05/25 09:32 Procedure Start 06/05/25 09:50 Procedure End 06/05/25 11:13 Procedure Start Time: :50 Procedure Stop Time: :13 Select all DRAINS/GRAFTS/IMPLANTS that apply: None Estimated Blood Loss: 200 Specimen collected: Yes Description of specimen(s) removed: Small bowel segment Description of surgery: The patient was having a surgery for suction D&C. Small intestine started coming through the cervix. I was called intraoperatively. A midline incision was then created inferior to the umbilicus. It was deepened to the fascia which was elevated and incised. The abdomen was entered. The small bowel was into the uterus. It was removed from the uterus and the small bowel was delivered through the incision. It appeared that there was a segment that was devitalized and the mesentery was taken from it. This segment was resected using 75 GRACIELA staplers. The mesentery was resected using impact LigaSure. There was good hemostasis. Next the corner of each staple line was removed and the stapler was placed into the bowel. A [id number] functional end and anastomosis was created using a stapler. There was good hemostasis. The enterostomy was closed with a TX 60. There was good blood supply and any bleeders were stopped with interrupted 3-0 silk sutures. A 3-0 silk suture was used as a crotch stitch. There was a good lumen. The abdomen was irrigated and suctioned dry. Dr. Diallo repaired the uterus injury. The abdomen was then irrigated and suctioned dry and the bowel was returned to the abdomen. The omentum was draped over the bowel. The fascia was closed with a #1 PDS from the top and bottom meeting in the middle. Subcutaneous tissue was irrigated and then closed with interrupted 4-0 Monocryl sutures. Steri-Strips and bandages were applied. Patient was taken to PACU in stable condition and will be admitted after surgery. Surgical Findings: Small bowel injury Complications Complications: Yes Complication Details: Small bowel injury necessitating small bowel resection Admit VTE Documentation VTE Mechan Device Prophylaxis: SCD's
--- NOTE | 2025-06-05 11:30 | PCM.POST.ANE ---
Anesthesia: Postop Eval I Current Vital Signs Temperature: 97.4 F Pulse Rate: 80 Blood Pressure: 99/61 Respiratory Rate: 16 Pulse Ox: 100 Oxygen Delivery Method: Room Air Assessment Airway patent: Yes Spontaneous unlabored respirations: Yes Mental status: Asleep nausea: No Vomiting: No Anesthesia Complication: No Fluid Hydration Crystalloid volume administer (ml): 1,200 Total IV fluid infused: 1,200 Progress Note Anesthesia document: Postop Eval 1 completed: Yes
[2025-06-05] MEDS: 0.9% Normal Saline (250mL Bag) 250 ML 15 ML IV (13:50)
[2025-06-05] MEDS: Piperacil/Tazobactam 3.375 GM in 0.9% Normal Saline (50mL MB+) 50 ML IV ×2 (13:54→21:22)
--- NOTE | 2025-06-05 14:49 | CASEMGMT ---
Addendum entered by Indira Yu 06/08/25 09:35: RN EMEKA reviewed 6 clicks = 24. Original Note: Dx:DNC LACE:1 6-Clicks:Not completed at this time. Nurse states will complete when pt gets up the first time. Medical record reviewed and patient evaluated for identification of discharge planning needs. Based on this review, at this time criteria are not present to indicate a need for discharge planning. Will remain available to assist with discharge planning needs as identified or requested. SW to follow with pt.
--- NOTE | 2025-06-05 15:09 | CASEMGMT ---
Social Work- Pt sleeping and not able to meet at this time. Pt will remain overnight. SW to follow for support. MARÍA ELENA Norton
[2025-06-05] MEDS: HYDROmorphone 0.5 MG/0.5 ML SYRINGE IV (15:31)
[2025-06-05] MEDS: Lactated Ringers 1,000 ML 40 ML IV (18:40)
[2025-06-05] MEDS: 0.9% Saline Lock 10 ML Syringe IV (21:22)
[2025-06-06 01:22] VITALS: BP 110/74; PULSE 87; RESP 16; TEMP 36.6; O2SAT 97
[2025-06-06] MEDS: 0.9% Saline Lock 10 ML Syringe IV ×2 (01:40→07:59)
[2025-06-06] MEDS: HYDROmorphone 0.5 MG/0.5 ML SYRINGE IV ×2 (01:50→05:18)
[2025-06-06 05:22] VITALS: BP 110/56; PULSE 82; RESP 16; TEMP 36.6; O2SAT 97
[2025-06-06 07:21] LABS: Hematocrit 33.2 % (37-47); Hemoglobin 11.1 g/dL (12.0-15.0); Immature Granulocytes Count 0.030 X10^3/uL (0.0-0.0); Mean Corp Hgb Conc 33.4 g/dL (32-36); Mean Corpuscular Volume 90.2 fL (81-99); Mean Platelet Vol. 9.4 fl (6.2-12.0); NRBC Flagged by Analyzer 0 % (0-5); Platelet Count 159 K/mm3 (150-450); RBC Distribution Width CV 11.9 % (11.6-14.6); RBC Distribution Width SD 39.2 fl (35.1-43.9); Red Blood Count 3.68 M/mm3 (4.2-5.4); White Blood Count 8.7 K/mm3 (4.4-11.0)
[2025-06-06 07:36] VITALS: BP 110/73; PULSE 71; RESP 16; TEMP 36.4; O2SAT 100
[2025-06-06 07:52] LABS: Anion Gap 10 (5-15); BUN 7 mg/dL (4-19); BUN/Creat Ratio 14.6 RATIO (10-20); Calcium,Total 8.6 mg/dL (7.6-11.0); Carbon Dioxide 22.2 mmol/L (21.0-32.0); Chloride 107 mmol/L (98-108); Estimated Creatinine Clearance 156.85 ml/min (50-250); Glucose 94 mg/dL (70-99); Potassium 3.5 mmol/L (3.3-5.1)
--- NOTE | 2025-06-06 09:30 | PCM.PN.OB ---
Subjective Subjective Patient is laying in bed comfortably without complaints. She states that she slept on an off during the night. She is walking the halls, chewing gum, and feels some gurgling in belly but not passing gas yet. Pain is minimal to moderate at times. She feels better with pressure applied to the incision. Objective Data Objective Data Vital Signs: Vital Signs Temp Pulse Resp BP Pulse Ox O2 Del Method 97.5 F L 71 16 110/73 100 Room Air 06/06/25 07:36 06/06/25 07:36 06/06/25 07:36 06/06/25 07:36 06/06/25 07:36 06/06/25 07:36 Oxygen Delivery Method Room Air Weight: 137 lb 2.04 oz Body Mass Index (BMI) 21.4 Intake & Output: Intake and Output for Last 24 Hours 06/04/25 06/05/25 06/06/25 23:59 23:59 23:59 Intake Total 2129.5 / 2129.5 50 / 50 Output Total 480 / 480 Balance 1649.5 / 1649.5 50 / 50 Lab / Micro Data 06/06/25 07:03 06/06/25 07:03 Labs: Laboratory Results - last 24 hr 06/06/25 07:03: WBC 8.7, RBC 3.68 L, Hgb 11.1 L, Hct 33.2 L, MCV 90.2, MCH 30.2, MCHC 33.4, RDW Std Deviation 39.2, RDW Coeff of Flavia 11.9, Plt Count 159, MPV 9.4, Immature Gran % (Auto) 0.300, Neut % (Auto) 75.8 H, Lymph % (Auto) 13.5 L, [place] % (Auto) 10.1 H, Eos % (Auto) 0.1, Baso % (Auto) 0.2, Absolute Neuts (auto) 6.6, Absolute Lymphs (auto) 1.17, Nucleated RBC % 0, Sodium 138, Potassium 3.5, Chloride 107, Carbon Dioxide 22.2, Anion Gap 10, BUN 7, Creatinine 0.51 L, Estim Creat Clear Calc 156.85, Est GFR (MDRD) Non-Af 129, BUN/Creatinine Ratio 14.6, Glucose 94, Calcium 8.6 Radiography Diagnostic Testing: Radiology Impression KUB X-Ray 06/05/25 11:10 IMPRESSION: No radiopaque foreign body is seen in the included areas. No small bowel dilation is noted. No acute osseous process is evident. Reading Location: [address] Constitutional Constitutional: Reports systems reviewed and no addt'l complaints, except as documented Cardiovascular Cardiovascular: Denies chest pain, dizziness, dyspnea or irregular heart rhythm Respiratory/Chest Respiratory/Chest: Denies cough, pain on inspiration or shortness of breath at rest Gastrointestinal Gastrointestinal: Denies abdominal pain, nausea or vomiting Genitourinary Genitourinary: Denies burning urination Musculoskeletal Musculoskeletal: Denies muscle cramps, muscle spasms or muscle weakness Neurologic Neurologic: Denies confusion, dizziness, headache(s) or lack of coordination Psychiatric Psychiatric: Denies anxiety, behavioral changes or depression Physical Exam Const alert, oriented x3 and no apparent distress HEENT normocephalic Resp normal respiratory effort and normal air movement GI soft to palpation, non-tender and non-distended GI Narrative: incision is clean, dry, intact. Nurse just listened to bowel sounds and reported some activity. Rectal Exam: other Other Details: Incision is clean, dry, and intact no CVA tenderness Extremity normal to inspection General Extremity: Negative for edema Skin no rashes or lesions noted Assessment & Plan (1) Evisceration of bowel: (2) Status post dilation and curettage: (3) Status post laparotomy: PLAN: Plan post op day #1 D&E for 13 week 6 day demise- complicated by uterine perforation and bowel evisceration, repaired with laparotomy with general surgery via a bowel resection and reanastomosis. -continue NPO for full 48 hours -abx x 24 hrs then stop if no signs of infection or white count -rpt cbc and bmp tomorrow -greatly appreciate general surgery input for ongoing care -abdominal binder ordered per patient request.
--- NOTE | 2025-06-06 10:38 | CASEMGMT ---
SW met w/pt and briefly, offered support. SW provided resources to them. SW let pt and know SW remains available for support and resources to them. At this time, no further resources requested. SW does remain available for support to pt and family as pt's stay here continues. HOLGER eWiss
[2025-06-06] MEDS: Piperacil/Tazobactam 3.375 GM in 0.9% Normal Saline (50mL MB+) 50 ML IV (11:00)
--- NOTE | 2025-06-06 11:58 | POSTOPAN2_ITS ---
Anesthesia Postop Eval I Sum Postop Eval Completion status Anesthesia document: Postop Eval 1 completed: Yes Anesthesia Postop Eval I Summary Anesthesia Postop Eval I Summary: Anesthesia Postop Eval I: Assessment Summary Airway patent Yes 06/05/25 11:31 ROAD GRADER [email or web address] Spontaneous unlabored Yes 06/05/25 11:31 ROAD GRADER [email or web address] respirations Mental status Asleep 06/05/25 11:31 RO[address] GRADER [email or web address] nausea No 06/05/25 11:31 RO[address] GRADER [email or web address] Vomiting No 06/05/25 11:31 RO[address] GRADER [email or web address] Anesthesia Postop Eval I: Fluid Summary Crystalloid volume administer 1,200 06/05/25 11:31 [address] GRADER [email or web address] (ml) Colloids volume administered ( ml) Blood Product volume administered (ml) Total IV fluid infused 1,200 06/05/25 11:31 [address] GRADER [email or web address].[email or web address] Anesthesia Postop Eval I: Summary Notes Anesthesia Complication No 06/05/25 11:31 [address] GRADER OPERATOR.[email or web address] Anesthesia Complication Comment: Post-operative progress note Anesthesia: Postop Eval II Evaluation Mental status: Awake and Calm Pain Level: 4 nausea: No Vomiting: No Complications Anesthesia Complication: No
--- NOTE | 2025-06-06 11:58 | PCM.POSTANE2 ---
Anesthesia Postop Eval I Sum Postop Eval Completion status Anesthesia document: Postop Eval 1 completed: Yes Anesthesia Postop Eval I Summary Anesthesia Postop Eval I Summary: Anesthesia Postop Eval I: Assessment Summary Airway patent Yes 06/05/25 11:31 LAND LAW [email or web address] Spontaneous unlabored Yes 06/05/25 11:31 LAND LAW [email or web address] respirations Mental status Asleep 06/05/25 11:31 LAND LAW [email or web address] nausea No 06/05/25 11:31 LAND LAW [email or web address] Vomiting No 06/05/25 11:31 LAND LAW [email or web address] Anesthesia Postop Eval I: Fluid Summary Crystalloid volume administer 1,200 06/05/25 11:31 LAND LAW [email or web address] (ml) Colloids volume administered ( ml) Blood Product volume administered (ml) Total IV fluid infused 1,200 06/05/25 11:31 LAND LAW [email or web address] Anesthesia Postop Eval I: Summary Notes Anesthesia Complication No 06/05/25 11:31 LAND LAW [email or web address] Anesthesia Complication Comment: Post-operative progress note Anesthesia: Postop Eval II Evaluation Mental status: Awake and Calm Pain Level: 4 nausea: No Vomiting: No Complications Anesthesia Complication: No
--- NOTE | 2025-06-06 13:08 | PCM.PN.SRG ---
Subjective Subjective Patient seen and evaluated on rounds this morning. Patient appeared comfortable and had no significant issues or complaints. She denies passage of flatus or bowel movement at this point. She states the pain medication has kept her incisional discomfort well-controlled. Patient is wearing abdominal binder for pain as well. She is n.p.o. currently. She states that she has been up and ambulating without much difficulty Objective Data Objective Data Vital Signs: Vital Signs Temp Pulse Resp BP Pulse Ox O2 Del Method 97.5 F L 71 16 110/73 100 Room Air 06/06/25 07:36 06/06/25 07:36 06/06/25 07:36 06/06/25 07:36 06/06/25 07:36 06/06/25 07:36 Oxygen Delivery Method Room Air Weight: 137 lb 2.04 oz Body Mass Index (BMI) 21.4 Intake & Output: Intake and Output for Last 24 Hours 06/04/25 06/05/25 06/06/25 23:59 23:59 23:59 Intake Total 2129.5 / 2129.5 50 / 50 Output Total 480 / 480 Balance 1649.5 / 1649.5 50 / 50 Lab / Micro Data 06/06/25 07:03 06/06/25 07:03 Labs: Laboratory Results - last 24 hr 06/06/25 07:03: WBC 8.7, RBC 3.68 L, Hgb 11.1 L, Hct 33.2 L, MCV 90.2, MCH 30.2, MCHC 33.4, RDW Std Deviation 39.2, RDW Coeff of Flavia 11.9, Plt Count 159, MPV 9.4, Immature Gran % (Auto) 0.300, Neut % (Auto) 75.8 H, Lymph % (Auto) 13.5 L, [place] % (Auto) 10.1 H, Eos % (Auto) 0.1, Baso % (Auto) 0.2, Absolute Neuts (auto) 6.6, Absolute Lymphs (auto) 1.17, Nucleated RBC % 0, Sodium 138, Potassium 3.5, Chloride 107, Carbon Dioxide 22.2, Anion Gap 10, BUN 7, Creatinine 0.51 L, Estim Creat Clear Calc 156.85, Est GFR (MDRD) Non-Af 129, BUN/Creatinine Ratio 14.6, Glucose 94, Calcium 8.6 Physical Exam Narrative She is alert and oriented x 3. She is in no acute distress. Her head is normocephalic and atraumatic. Abdomen is soft and appropriately tender. Abdominal binder is in place. Dressing overlying incision is clean dry and intact. Assessment & Plan Assessment/Plan (1) Status post laparotomy: (2) Status post dilation and curettage: (3) Evisceration of bowel: PLAN: Plan The patient is postoperative day #1 following an exploratory laparotomy and small bowel resection. She has not yet passed any appreciable flatus despite being up and ambulating as recommended to her. I offered reassurance that it sometimes will take a couple of days for her GI tract to regain bowel function. I encouraged continued ambulation and incentive spirometry. Will continue to keep her n.p.o. for now. Once passing flatus, we could certainly consider diet advancement. All questions and concerns were addressed.
[2025-06-06 13:26] VITALS: BP 108/66; PULSE 68; RESP 16; TEMP 36.7; O2SAT 100
[2025-06-06 21:22] VITALS: BP 100/68; PULSE 74; RESP 16; TEMP 36.7; O2SAT 96
[2025-06-06] MEDS: Lactated Ringers 1,000 ML 100 ML IV (22:02)
[2025-06-07 03:00] VITALS: BP 101/64; PULSE 71; RESP 16; TEMP 36.2; O2SAT 98
[2025-06-07 06:07] LABS: Hematocrit 31.5 % (37-47); Hemoglobin 10.4 g/dL (12.0-15.0); Immature Granulocytes Count 0.020 X10^3/uL (0.0-0.0); Mean Corp Hgb Conc 33.0 g/dL (32-36); Mean Corpuscular Volume 90.8 fL (81-99); Mean Platelet Vol. 9.8 fl (6.2-12.0); NRBC Flagged by Analyzer 0 % (0-5); Platelet Count 163 K/mm3 (150-450); RBC Distribution Width CV 11.9 % (11.6-14.6); RBC Distribution Width SD 39.8 fl (35.1-43.9); Red Blood Count 3.47 M/mm3 (4.2-5.4); White Blood Count 7.1 K/mm3 (4.4-11.0)
[2025-06-07 06:32] LABS: Anion Gap 12 (5-15); BUN 10 mg/dL (4-19); BUN/Creat Ratio 19.8 RATIO (10-20); Calcium,Total 8.5 mg/dL (7.6-11.0); Carbon Dioxide 20.2 mmol/L (21.0-32.0); Chloride 107 mmol/L (98-108); Estimated Creatinine Clearance 163.25 ml/min (50-250); Glucose 78 mg/dL (70-99); Potassium 3.6 mmol/L (3.3-5.1)
[2025-06-07 07:53] VITALS: BP 104/65; PULSE 66; RESP 16; TEMP 37.1; O2SAT 99
[2025-06-07 08:48] LABS: Pathology Specimen OB SEE PATHOLOGY REPORT
[2025-06-07] MEDS: Lactated Ringers 1,000 ML 100 ML IV (09:07)
--- NOTE | 2025-06-07 11:39 | PN.OBGYN_ITS ---
Subjective Subjective patient appears in better spirits today. She is sitting up and eating some jello. She is passing flatus and moving around a lot. She wants to go home tomorrow if possible. She denies fevers and chills. She is feeling some gushes of blood vaginally but no dizziness or shortness of breath. reassured that this is normal after a D&C. Objective Data Objective Data Vital Signs: Vital Signs Temp Pulse Resp BP Pulse Ox O2 Del Method 98.7 F 66 16 104/65 99 Room Air 06/07/25 07:53 06/07/25 07:53 06/07/25 07:53 06/07/25 07:53 06/07/25 07:53 06/07/25 07:53 Oxygen Delivery Method Room Air Weight: 137 lb 2.04 oz Body Mass Index (BMI) 21.4 Intake & Output: Intake and Output for Last 24 Hours 06/05/25 06/06/25 06/07/25 23:59 23:59 23:59 Intake Total 2129.5 / 2129.5 1100 / 1100 1000 / 1000 Output Total 480 / 480 850 / 1350 500 / 500 Balance 1649.5 / 1649.5 250 / -250 500 / 500 Lab / Micro Data 06/07/25 05:26 06/07/25 05:26 Labs: Laboratory Results - last 24 hr 06/07/25 05:26: WBC 7.1, RBC 3.47 L, Hgb 10.4 L, Hct 31.5 L, MCV 90.8, MCH 30.0, MCHC 33.0, RDW Std Deviation 39.8, RDW Coeff of Flavia 11.9, Plt Count 163, MPV 9.8, Immature Gran % (Auto) 0.300, Neut % (Auto) 74.0 H, Lymph % (Auto) 17.0 L, [place] % (Auto) 8.0, Eos % (Auto) 0.4, Baso % (Auto) 0.3, Absolute Neuts (auto) 5.3, Absolute Lymphs (auto) 1.21, Nucleated RBC % 0, Sodium 139, Potassium 3.6, Chloride 107, Carbon Dioxide 20.2 L, Anion Gap 12, BUN 10, Creatinine 0.49 L, Estim Creat Clear Calc 163.25, Est GFR (MDRD) Non-Af 130, BUN/Creatinine Ratio 19.8, Glucose 78, Calcium 8.5 Radiography Diagnostic Testing: Radiology Impression KUB X-Ray 06/05/25 11:10 IMPRESSION: No radiopaque foreign body is seen in the included areas. No small bowel dilation is noted. No acute osseous process is evident. Reading Location: [address] Constitutional Constitutional: Reports systems reviewed and no addt'l complaints, except as documented Cardiovascular Cardiovascular: Denies chest pain, dizziness, dyspnea or irregular heart rhythm Respiratory/Chest Respiratory/Chest: Denies cough, pain on inspiration or shortness of breath at rest Gastrointestinal Gastrointestinal: Denies abdominal pain, nausea or vomiting Genitourinary Genitourinary: Denies burning urination Musculoskeletal Musculoskeletal: Denies muscle cramps, muscle spasms or muscle weakness Neurologic Neurologic: Denies confusion, dizziness, headache(s) or lack of coordination Psychiatric Psychiatric: Denies anxiety, behavioral changes or depression Physical Exam Const alert, oriented x3 and no apparent distress HEENT normocephalic Resp normal respiratory effort and normal air movement GI soft to palpation, non-tender and non-distended GI Narrative: incision is clean, dry, intact. Auscultation: hypoactive bowel sounds Rectal Exam: other Other Details: Incision is clean, dry, and intact no CVA tenderness Extremity normal to inspection General Extremity: Negative for edema Skin no rashes or lesions noted Assessment & Plan (1) Evisceration of bowel: (2) Status post dilation and curettage: (3) Status post laparotomy: PLAN: Plan POD #2 bowel and uterine repair and D&E for 13 week loss. She is doing well on clears this morning. continue oob ambulation and chewing gum looking forward to more recommendations on dc planning from tomorrow.
--- NOTE | 2025-06-07 12:36 | PN.SURG_ITS ---
Subjective Subjective Patient seen and examined on rounds earlier this morning. Patient seems to be doing well. She does note passage of flatus yesterday and today. No significant bowel movement. She was started on a clear liquid diet overnight and seems to be tolerating it thus far. She does admit to some mild distention but no nausea or increase in pain. She reassures me that she is up and ambulating. She is hopeful to be able to go home in the next day or 2. We did discuss lifting restrictions and activity, etc. Objective Data Objective Data Vital Signs: Vital Signs Temp Pulse Resp BP Pulse Ox O2 Del Method 98.7 F 66 16 104/65 99 Room Air 06/07/25 07:53 06/07/25 07:53 06/07/25 07:53 06/07/25 07:53 06/07/25 07:53 06/07/25 07:53 Oxygen Delivery Method Room Air Weight: 137 lb 2.04 oz Body Mass Index (BMI) 21.4 Intake & Output: Intake and Output for Last 24 Hours 06/05/25 06/06/25 06/07/25 23:59 23:59 23:59 Intake Total 2129.5 / 2129.5 1100 / 1100 1000 / 1000 Output Total 480 / 480 850 / 1350 500 / 500 Balance 1649.5 / 1649.5 250 / -250 500 / 500 Lab / Micro Data 06/07/25 05:26 06/07/25 05:26 Labs: Laboratory Results - last 24 hr 06/07/25 05:26: WBC 7.1, RBC 3.47 L, Hgb 10.4 L, Hct 31.5 L, MCV 90.8, MCH 30.0, MCHC 33.0, RDW Std Deviation 39.8, RDW Coeff of Flavia 11.9, Plt Count 163, MPV 9.8, Immature Gran % (Auto) 0.300, Neut % (Auto) 74.0 H, Lymph % (Auto) 17.0 L, [place] % (Auto) 8.0, Eos % (Auto) 0.4, Baso % (Auto) 0.3, Absolute Neuts (auto) 5.3, Absolute Lymphs (auto) 1.21, Nucleated RBC % 0, Sodium 139, Potassium 3.6, Chloride 107, Carbon Dioxide 20.2 L, Anion Gap 12, BUN 10, Creatinine 0.49 L, Estim Creat Clear Calc 163.25, Est GFR (MDRD) Non-Af 130, BUN/Creatinine Ratio 19.8, Glucose 78, Calcium 8.5 Physical Exam Narrative She is alert and oriented x 3. She is in no acute distress. Abdomen is soft and appropriately tender. There is mild abdominal distention. Dressing is clean dry and intact. No signs of surrounding erythema Assessment & Plan Assessment/Plan (1) Status post laparotomy: PLAN: Plan The patient is postoperative day #2 following an exploratory laparotomy and small bowel resection. She has passed some flatus and has been tolerating a clear liquid diet well. She did state that her abdomen does feel slightly bloated. As a result of recommend that we keep her at a clear liquid diet for now. Certainly if the distention resolves, her diet could slowly be advanced. I recommended that she continue to ambulate frequently and continue with incentive spirometry All questions and concerns were addressed. Would anticipate discharge to home either tomorrow or Sunday based on how she is progressing. Dr Rahman to return tomorrow
[2025-06-07 14:26] VITALS: BP 101/72; PULSE 78; RESP 16; TEMP 36.6; O2SAT 99
[2025-06-07 21:00] VITALS: BP 95/64; PULSE 63; RESP 16; TEMP 37.1; O2SAT 98
[2025-06-08 03:00] VITALS: BP 104/72; PULSE 63; RESP 16; TEMP 36.7; O2SAT 100
--- NOTE | 2025-06-08 07:51 | US_ITS ---
PROCEDURE: PELVIC W/ TRANSVAGINAL REASON FOR EXAM: PELVIC PAIN AFTER D C AND LAPAROTOMY TECHNIQUE: Procedure Code: USPELTVAG Modality: US Procedure: PELVIC W/ TRANSVAGINAL COMPARISON: None FINDINGS: Measurements: Uterus: 12.7 cm x 7.1 cm x 4.5 cm with a volume of 215.2 mL Endometrial Thickness: 27 mm. The patient is recent D and C. Right Ovary: Not visualized. Left Ovary: 2.8 cm x 2.1 cm x 1.8 cm with a volume of 5.6 mL. TRANSABDOMINAL: Uterus: Increased vascularity along the fundal portion. Endometrium: Endometrium is thickening. Questionable residual products of conception. Right ovary: Not visualized. Left ovary: Normal size and echotexture. Other: No large pelvic mass identified. Transvaginal sonography was performed to better visualize the endometrium. TRANSVAGINAL: Uterus: Enlarged. Recent D and C. Heterogeneous appearance of the fundal portion of the uterus with increased vascularity. Endometrium: Diffusely thickened and heterogeneous. Questionable residual products of conception. Right ovary: Not visualized. Left ovary: Normal size and echotexture. Other adnexal findings: None. Cul-de-sac: No free intraperitoneal fluid identified. Tenderness: No tenderness US/Pelvic w/ Transvaginal IMPRESSION: Heterogeneous appearance of the fundal portion of the uterus with increased vas cularity. Heterogeneous thickening of the endometrium measuring 27 mm. Questionable retained products of conception. Reading Location: [place] [address]
--- NOTE | 2025-06-08 07:53 | PN.OBGYN_ITS ---
Subjective Subjective Patient is sitting up in bedside chair. She is passing more flatus and gas pains are improving. However, she has a new complaint of suprapubic pressure and pressure/pain with urination. no fevers or chills. No actual burning with urination Objective Data Objective Data Vital Signs: Vital Signs Temp Pulse Resp BP Pulse Ox O2 Del Method 98.1 F 63 16 104/72 100 Room Air 06/08/25 03:00 06/08/25 03:00 06/08/25 03:00 06/08/25 03:00 06/08/25 03:00 06/08/25 03:00 Oxygen Delivery Method Room Air Weight: 137 lb 2.04 oz Body Mass Index (BMI) 21.4 Intake & Output: Intake and Output for Last 24 Hours 06/06/25 06/07/25 06/08/25 23:59 23:59 23:59 Intake Total 1100 / 1100 1653.33 / 2053.33 400 / 400 Output Total 850 / 1350 500 / 500 Balance 250 / -250 1153.33 / 1553.33 400 / 400 Lab / Micro Data 06/07/25 05:26 06/07/25 05:26 Labs: Laboratory Results - last 24 hr 06/07/25 05:26: WBC 7.1, RBC 3.47 L, Hgb 10.4 L, Hct 31.5 L, MCV 90.8, MCH 30.0, MCHC 33.0, RDW Std Deviation 39.8, RDW Coeff of Flavia 11.9, Plt Count 163, MPV 9.8, Immature Gran % (Auto) 0.300, Neut % (Auto) 74.0 H, Lymph % (Auto) 17.0 L, [place] % (Auto) 8.0, Eos % (Auto) 0.4, Baso % (Auto) 0.3, Absolute Neuts (auto) 5.3, Absolute Lymphs (auto) 1.21, Nucleated RBC % 0, Sodium 139, Potassium 3.6, Chloride 107, Carbon Dioxide 20.2 L, Anion Gap 12, BUN 10, Creatinine 0.49 L, Estim Creat Clear Calc 163.25, Est GFR (MDRD) Non-Af 130, BUN/Creatinine Ratio 19.8, Glucose 78, Calcium 8.5 Radiography Diagnostic Testing: Radiology Impression KUB X-Ray 06/05/25 11:10 IMPRESSION: No radiopaque foreign body is seen in the included areas. No small bowel dilation is noted. No acute osseous process is evident. Reading Location: [address] Constitutional Constitutional: Reports systems reviewed and no addt'l complaints, except as documented Cardiovascular Cardiovascular: Denies chest pain, dizziness, dyspnea or irregular heart rhythm Respiratory/Chest Respiratory/Chest: Denies cough, pain on inspiration or shortness of breath at rest Gastrointestinal Gastrointestinal: Denies abdominal pain, nausea or vomiting Genitourinary Genitourinary: Denies burning urination Musculoskeletal Musculoskeletal: Denies muscle cramps, muscle spasms or muscle weakness Neurologic Neurologic: Denies confusion, dizziness, headache(s) or lack of coordination Psychiatric Psychiatric: Denies anxiety, behavioral changes or depression Physical Exam Const alert, oriented x3 and no apparent distress HEENT normocephalic Resp normal respiratory effort and normal air movement GI soft to palpation, non-tender and non-distended GI Narrative: incision is clean, dry, intact. Auscultation: hypoactive bowel sounds Rectal Exam: other Other Details: Incision is clean, dry, and intact Narrative: tenderness at the suprapubic area on exam. Extremity normal to inspection General Extremity: Negative for edema Skin no rashes or lesions noted Assessment & Plan (1) Evisceration of bowel: (2) Status post dilation and curettage: (3) Status post laparotomy: PLAN: Plan POD #3 bowel and uterine repair and D&E for 13 week loss. She is doing well on clears this morning and will be advanced to regular now per Dr. Rahman. continue oob ambulation ua/c and culture now, stat pelvic ultrasound. looking forward to more recommendations on dc planning from later today if all is well with ultrasound and urine tests
[2025-06-08 08:14] LABS: Mucous, Urine 0 SEEN /hpf (<or=2+); Red Blood Cells-Urine 0 SEEN /hpf (0-5)
[2025-06-08 08:25] LABS: Color, Urine Straw (Yellow); Glucose, Dipstick Normal (Normal); Ketone-Dipstick 5 mg/dl (Negative); Leukocyte Esterase-Dipstick Negative /ul (Negative); Nitrite-Dipstick Negative (Negative); Occult Blood-Urine 150 /ul (Negative); Protein-Dipstick Negative (Negative); Specific Gravity, Urine 1.010 (1.002-1.030); Urine Bilirubin Dipstick Negative (Negative)
[2025-06-08 08:27] VITALS: BP 112/84; PULSE 97; RESP 16; TEMP 36.9; O2SAT 100
[2025-06-08 08:33] LABS: Squamous Epithelial Cells - UA 0-5 SEEN /hpf (5-10)
--- NOTE | 2025-06-08 10:19 | PCM.PN.SRG ---
Subjective Subjective Patient seems comfortable this morning. She reports she is passing gas and having less gas pains. She denies nausea or vomiting and she tolerated clears Objective Data Objective Data Vital Signs: Vital Signs Temp Pulse Resp BP Pulse Ox O2 Del Method 98.4 F 97 18 112/84 H 100 Room Air 06/08/25 08:27 06/08/25 08:27 06/08/25 08:27 06/08/25 08:27 06/08/25 08:27 06/08/25 08:32 Oxygen Delivery Method Room Air Weight: 137 lb 2.04 oz Body Mass Index (BMI) 21.4 Intake & Output: Intake and Output for Last 24 Hours 06/06/25 06/07/25 06/08/25 23:59 23:59 23:59 Intake Total 1100 / 1100 1653.33 / 2053.33 400 / 400 Output Total 850 / 1350 500 / 500 Balance 250 / -250 1153.33 / 1553.33 400 / 400 Lab / Micro Data 06/07/25 05:26 06/07/25 05:26 Labs: Laboratory Results - last 24 hr 06/08/25 08:00: Urine Color Straw, Urine Clarity Clear, Urine pH 7.0, Ur Specific [place] 1.010, Urine Protein Negative, Urine Glucose (UA) Normal, Urine Ketones 5 H, Urine Occult Blood 150 H, Urine Nitrite Negative, Urine Bilirubin Negative, Urine Urobilinogen Normal, Ur Leukocyte Esterase Negative, Urine RBC 0 SEEN, Urine WBC 0 SEEN, Ur Squamous Epith Cells 0-5 SEEN, Urine Bacteria 0 SEEN, Urine Mucus 0 SEEN Physical Exam Const oriented x3 and no apparent distress Resp normal respiratory effort GI soft to palpation and non-tender Assessment & Plan Assessment/Plan (1) Status post laparotomy: PLAN: Patient has small bowel resection. She is tolerating clear liquid diet and passing gas. I will advance her to a regular diet. If she tolerates that she may be discharged home and follow-up with me. Osmany Rahman MD Pager: [facility] [address] [place] [address], [address] [place] [address] Office:
[2025-06-08 13:37] VITALS: BP 94/63; PULSE 75; RESP 16; TEMP 37; O2SAT 100
--- NOTE | 2025-06-08 16:46 | PCM.DC.SUM ---
Providers Date of Admission: 06/05/25 Primary Care Physician: Dr. Boston Card MD Reason For Visit: DNC Diagnosis Discharge Diagnosis (1) Status post laparotomy: Status: Acute Code(s): Z98.890 - Other specified postprocedural states Plan POD #3 bowel and uterine repair and D&E for 13 week loss. She is doing well on clears this morning and will be advanced to regular now per Dr. Rahman. continue oob ambulation ua/c and culture now, stat pelvic ultrasound. looking forward to more recommendations on dc planning from later today if all is well with ultrasound and urine tests Medications at Discharge Home Medications multivitamin no.47-iron fum 27 mg-folate no.1 1 mg-dha 300 mg capsule (PNV-DHA) 1 cap PO DAILY 04/16/25 misoprostol 200 mcg tablet (Cytotec) 200 mcg PO ONCE #1 TAB 06/04/25 Hospital Course Operations - (laparotomy, suction dilation and curettage, bowel repair ) Summary of Care Provided Minutes Spent on Discharge: 30 Hospital Course: Malika Lott is a 30 y/o who presented to [facility] on the morning of SundayJune 05 with bleeding and a demise at 13 weeks 6 days. We discussed risks vs benefits of a suction D&C or D&E vs induction of labor with cytotec. She has a history of prior section and the thought was less complications from a D&E. At around 10 am on 06/05/25 she underwent a dilation and evacuation of tissue, however during her procedure the right horn of her uterus was incidentally perforated with the suction catheter and bowel was grabbed and pulled through the fundus of the uterus and through the cervix and vagina. This was recognized immediately and general surgery was called stat to the operating room. A laparotomy was performed to repair her bowel and uterine defect. During that time she was noted to have a uterine septum. She was recovered on MS3 that evening and was made NPO for the next 48 hours. She was also given zosyn for 24 hours. On the first postop day she was amulating well and pain was minimal. On the second post op day, 06/07/24 she started to pass a small amount of flatus and at 48 hours from surgery she was started on clear liquids. Today, post op day #3 her diet was advanced per general surgery to regular diet and tolerated this well. She was then discharged to home in stable condition. Physical Exam Const alert, oriented x3 and no apparent distress HEENT normocephalic Resp normal respiratory effort and normal air movement GI soft to palpation, non-tender and non-distended GI Narrative: incision is clean, dry, intact. Auscultation: hypoactive bowel sounds Rectal Exam: other Other Details: Incision is clean, dry, and intact no CVA tenderness Narrative: tenderness at the suprapubic area on exam. Extremity normal to inspection General Extremity: Negative for edema Skin no rashes or lesions noted Weight / BMI Weight Weight: 137 lb 2.04 oz Body Mass Index (BMI) 21.4 ABG / Lab / Microbiology Data 06/07/25 05:26 06/07/25 05:26 Laboratory: Laboratory Results - last 24 hr 06/08/25 08:00: Urine Color Straw, Urine Clarity Clear, Urine pH 7.0, Ur Specific [place] 1.010, Urine Protein Negative, Urine Glucose (UA) Normal, Urine Ketones 5 H, Urine Occult Blood 150 H, Urine Nitrite Negative, Urine Bilirubin Negative, Urine Urobilinogen Normal, Ur Leukocyte Esterase Negative, Urine RBC 0 SEEN, Urine WBC 0 SEEN, Ur Squamous Epith Cells 0-5 SEEN, Urine Bacteria 0 SEEN, Urine Mucus 0 SEEN Radiography Diagnostic Testing: Radiology Impression Pelvic/Transvag US 06/08/25 07:51 IMPRESSION: Heterogeneous appearance of the fundal portion of the uterus with increased vascularity. Heterogeneous thickening of the endometrium measuring 27 mm. Questionable retained products of conception. Reading Location: [facility] D/C Instructions Discharge Activity: May Not Drive and May Shower May resume sexual activity in: 6-8 weeks Weight Bearing Status: Weight bearing as tolerated Lifting Restricted to (Lbs): 10 Lifting Restrictions: 10 pounds, but may hold toddler on lap Call your doctor if your incision/area has: Continuous Slow Oozing, Sudden Increased Bleeding, Increased Pain/ Swelling, Increased Redness, Foul Smelling Discharge and Swelling at the incision site Call your doctor if you observe: Fever of 101 or Higher, Inability to urinate, Using more than 1 pad per hour, Dizziness, Chest pain and Calf discomfort Suture Line Care: Avoid Pulling/Pushing Remove Dressing in: 1 day Cleanse incision/area with: Keep Dressing Clean & Dry DC O2, CPAP, BIPAP Needs Home O2 Discharge instructions: No DC home with Oxygen: No Please Follow Up With: Nicolle Massey DO When: 2 weeks Meaningful Use Info Meaningful Use Meaningful Use Diagnoses (Choose all that apply): None applicable Discharge Plan Admission Admit Date/Time: 06/05/25 07:18 Primary Reason for Your Visit: laparotomy, bowel repair and dilation and curettage Attending Provider: Nicolle Massey Primary Care Provider: Boston Card Discharge Orders/Prescriptions Prescriptions: No Action PNV-DHA 27 mg iron-1 mg -300 mg capsule 1 cap PO DAILY misoprostol [Cytotec] 200 mcg tablet 200 mcg PO ONCE Qty: 1 0RF Rx Instructions: take 4 hours prior to procedure Referrals / Follow Up: Osmany Rahman MD [Med Staff - Active Staff, General Surgery] - Within 2 Weeks Boston Card MD [Primary Care Provider, Medical] Disposition Disposition (needs filled in before D/C Order can be placed): Home, Self Care
== END 2025-06-08 17:54 | disposition home or self-care (01) | DRG 770 ==
LOC: ED 05:40 → MS3 07:19
PROVIDERS: Admitting Provider Obstetrics & Gynecology; Emergency Provider Specialist/Technologist Athletic Trainer; PCP Family Medicine; Visit Provider Obstetrics & Gynecology
PROC: 10D17ZZ Extraction of Products of Conception, Retained, Via Natural or Artificial Opening (ICD-10-PCS; principal; 2025-06-05 09:15)
DX: O03.4 Incomplete spontaneous abortion without complication (principal); N99.71 Accidental puncture and laceration of a genitourinary system organ or structure during a genitourinary system procedure; K63.89 Other specified diseases of intestine; O34.01 Maternal care for unspecified congenital malformation of uterus, first trimester; O34.219 Maternal care for unspecified type scar from previous cesarean delivery; O99.891 Other specified diseases and conditions complicating pregnancy; O99.611 Diseases of the digestive system complicating pregnancy, first trimester; Q51.3 Bicornate uterus; Z53.39 Other specified procedure converted to open procedure; Z3A.13 13 weeks gestation of pregnancy; Z87.59 Personal history of other complications of pregnancy, childbirth and the puerperium
CPT/HCPCS: 36415; 74018; 76830; 76856; 80048; 81001; 84702; 85025; 86900; 86901; 87086; 88305; 88307; 94668; 94762; 99252; 99283; A4216; G0463